=== PATIENT | female | born 1960 | race Caucasian/White ===

== ENCOUNTER 2020-01-07 09:31 | Outpatient (REF) | payer OTHER, SELFPAY | END 2020-01-07 09:32 | disposition home or self-care (01) | LOC: HO.HMGCLDS 09:31 | PROVIDERS: PCP Internal Medicine; Visit Provider Internal Medicine | DX: Z20.828 Contact with and (suspected) exposure to other viral communicable diseases (principal) | CPT/HCPCS: C9803; U0003 ==

== ENCOUNTER → 2020-01-15 13:07 | Outpatient (BNVA) | payer OTHER, SELFPAY | PROVIDERS: Visit Provider Dietitian, Registered | DX: Z76.89 Persons encountering health services in other specified circumstances (principal) ==

== ENCOUNTER 2020-01-28 10:49 | Outpatient (REF) | payer OTHER, SELFPAY ==
[2020-01-28 11:27] LABS: MANUAL DIFF FLAG NO
[2020-01-28 11:49] LABS: Glucose Urine UA NEG (NEG); Leukocyte Esterase Urine TRACE (NEG); Nitrite Urine NEG (NEG); Urine Blood NEG (NEG); Urine Ketones NEG (NEG); Urine Protein NEG (NEG-TRACE)
[2020-01-28 11:49] LABS: Basophils Percent Auto 0.4 % (0-2); Eosinophils Absolute Auto 0.5 X10*3/uL (0.0-0.4); Eosinophils Percent Auto 6.1 % (0-4); Hematocrit 37.7 % (37-47); Hemoglobin 11.1 g/dl (12.0-16.0); Imm Gran Abs Auto 0.02 X10*3/uL (0.00-0.03); Imm Gran Pct Auto 0.3 % (0.0-0.4); Immature Retic Fraction 16.8 % (3.0-15.9); Lymphocytes Absolute Auto 2.3 X10*3/uL (1.2-4.9); Mean Corpuscular HGB Conc 29.4 g/dl (31.0-35.0); Mean Corpuscular Hemoglobin 25.2 pg (27.0-33.0); Mean Corpuscular Volume 85.5 fL (80-98); Mean Platelet Volume 9.9 fL (9.4-12.3); Monocytes Absolute Auto 0.5 X10*3/uL (0.1-1.2); Monocytes Percent Auto 6.1 % (2-11); Neutrophils Absolute Auto 4.4 X10*3/uL (2.0-8.3); Neutrophils Percent Auto 57.1 % (45-73); Platelet Count 307 X10*3/uL (160-400); Red Blood Count 4.41 X10*6/uL (4.20-5.50); Red Cell Distribution Width 15.4 % (11.0-16.0); Retic HGB Equivalent 31.4 pg (30.0-35.0); Reticulocytes Absolute 0.087 X10*6/uL (0.026-0.095); White Blood Count 7.7 X10*3/uL (4.8-10.8)
[2020-01-28 11:53] LABS: Alanine Aminotransferase 10 U/L (0-31); Alkaline Phosphatase 94 U/L (39-117); Anion Gap 11 (12-20); Aspartate Amino Transferase 17 U/L (5-31); Bilirubin Total 0.7 mg/dL (0.0-1.0); Blood Urea Nitrogen 23 mg/dL (9-16); Calcium 9.1 mg/dL (8.4-10.2); Carbon Dioxide 27 mmol/L (22-29); Chloride 105 mmol/L (96-108); Cholesterol 200 mg/dL; Estimated Glomerular Filt Rate > 60; Glucose Random 100 mg/dL (60-115); HDL Cholesterol 57 mg/dL; Iron 55 mcg/dL (30-160); LDL Cholesterol Calculated 122 mg/dl; Percent Iron Saturation 13 % (15-50); Potassium 4.6 mmol/l (3.3-5.1); Sodium 138 mmol/L (135-145); Total Iron Binding Capacity 421 mcg/dL (228-428); Total Protein 6.2 g/dL (6.5-8.0); Triglycerides 108 mg/dL; Unsaturated Iron Binding 366 ug/dL
[2020-01-28 11:56] LABS: Estimated Average Glucose 100 mg/dL; Hemoglobin A1c % 5.1 %
[2020-01-28 11:58] LABS: Appearance Urine CLEAR; Color Urine YELLOW
[2020-01-28 12:00] LABS: Lithium 1.09 mmol/L (0.60-1.20)
[2020-01-28 12:12] LABS: RBC Urine 0 /HPF (0); Squamous Epithelial Cell Urine TRACE /LPF; WBC Urine 0-2 /HPF (0-4)
[2020-01-28 12:18] LABS: Ferritin 6 ng/mL (10-250); Thyroid Stimulating Hormone 3.99 uIU/mL (0.32-4.0)
[2020-01-28 13:58] LABS: Folate 19.4 ng/mL (> or = 4.0); Vitamin B12 455 pg/mL (200-900)
== END 2020-01-28 10:50 | disposition home or self-care (01) ==
LOC: HO.LAB 10:49
PROVIDERS: PCP Internal Medicine; Visit Provider Internal Medicine
DX: E78.00 Pure hypercholesterolemia, unspecified (principal); E03.9 Hypothyroidism, unspecified
CPT/HCPCS: 36415; 80053; 80061; 80178; 81001; 82306; 82607; 82728; 82746; 83036; 83540; 84439; 84443; 85025; 85045

== ENCOUNTER → 2020-02-29 08:33 | Outpatient (BNVA) | payer OTHER, SELFPAY | PROVIDERS: PCP Internal Medicine; Visit Provider Physician Assistant | DX: Z76.89 Persons encountering health services in other specified circumstances (principal) ==

== ENCOUNTER 2020-03-12 11:24 | Outpatient (REF) | payer OTHER, SELFPAY ==
[2020-03-12 12:26] LABS: Lithium 1.21 mmol/L (0.60-1.20)
[2020-03-12 12:47] LABS: Magnesium 2.1 mg/dL (1.6-2.6)
[2020-03-12 13:07] LABS: Vitamin D 25-OH Total 24.4 ng/mL (>30)
[2020-03-12 13:16] LABS: T4 Thyroxine 5.9 ug/dL (4.5-12.0); Thyroid Stimulating Hormone 5.59 uIU/mL (0.32-4.0)
[2020-03-13 09:07] LABS: Triiodothyronine T3 Free 2.6 pg/mL (2.3-4.2)
== END 2020-03-12 11:25 | disposition home or self-care (01) ==
LOC: HO.LAB 11:24
PROVIDERS: PCP Internal Medicine; Visit Provider Psychiatry & Neurology Psychiatry
DX: F31.9 Bipolar disorder, unspecified (principal); G89.29 Other chronic pain; E03.9 Hypothyroidism, unspecified; E55.9 Vitamin D deficiency, unspecified; E78.00 Pure hypercholesterolemia, unspecified
CPT/HCPCS: 36415; 80178; 82306; 83735; 84436; 84443; 84481

== ENCOUNTER → 2020-04-17 10:30 | Outpatient (BNVA) | payer OTHER, SELFPAY | PROVIDERS: PCP Internal Medicine; Visit Provider Physician Assistant ==

== ENCOUNTER 2020-04-29 14:42 | Emergency (ER) | payer OTHER, SELFPAY ==
--- NOTE | ~2020-04-29 | XR_ITS ---
EXAMINATION: XR FOOT, LEFT CLINICAL INFORMATION: Left foot pain status post fall. COMPARISON: None TECHNIQUE: AP, lateral, and oblique views of the left foot. FINDINGS: There is no acute fracture or dislocation. The joint space is unremarkable. The tarsal bones are normally aligned. Small plantar and retrocalcaneal spurs are noted. The soft tissues are unremarkable. XR/XR foot LT 2V IMPRESSION: 1. No acute osseous abnormality. 2. Small degenerative plantar and retrocalcaneal spurs.
--- NOTE | ~2020-04-29 | XR_ITS ---
EXAMINATION: XR RIBS, LEFT CLINICAL INFORMATION: Fall, trauma, pain COMPARISON: Chest radiographs 10/19/2019, 11/23/2018, left shoulder 04/29/2020 TECHNIQUE: Frontal view chest and 3 views left ribs are obtained for a total of 4 views. FINDINGS: There is no visible rib fracture or rib destructive process. The lungs are clear and there is no pneumothorax, pleural reaction, or effusion. Some fine subpleural linear scarring periphery left midlung zone is stable from prior study. The costophrenic sulci are clear. The heart is normal in size. Mamillation right diaphragm stable. The hilar and mediastinal contours are unremarkable. XR/XR ribs LT min 3V w CXR1V IMPRESSION: Unremarkable examination.
--- NOTE | ~2020-04-29 | XR_ITS ---
EXAMINATION: XR SHOULDER, LEFT CLINICAL INFORMATION: Fall, trauma, pain COMPARISON: None TECHNIQUE: Left shoulder is imaged in 3 views. FINDINGS: There is no acute or healing fracture, dislocation, destructive process. The acromioclavicular alignment is normal. Left lung apex shows no pneumothorax or pleural reaction. No rotator cuff calcifications. XR/XR shoulder LT min 2V IMPRESSION: No fracture or dislocation.
--- NOTE | ~2020-04-29 | XR_ITS ---
EXAMINATION: XR PELVIS CLINICAL INFORMATION: Pelvic pain status post fall. COMPARISON: Left hip radiographs dated 05/24/2016, pelvic CT scan dated 11/17/2019. TECHNIQUE: AP view of the pelvis. FINDINGS: There is no acute fracture or dislocation. Minimal right hip hip degenerative joint changes are seen in the superior aspect of the joint space. Mild spurring off of the superolateral aspect of the right acetabulum is again noted. The bony pelvis is intact. Severe degenerative disc disease is again noted at L4-5. The soft tissues are unremarkable. XR/XR pelvis 1-2V IMPRESSION: 1. Minimal right hip osteoarthritis with mild degenerative spurring similar to the previous CT scan. No acute abnormality. 2. L4-L5 severe degenerative disc disease.
[2020-04-29 14:43] VITALS: BP 109/78; PULSE 81; RESP 16; TEMP 36.6; O2SAT 100; BMI 46.5
--- NOTE | 2020-04-29 15:59 | ED.FALL ---
HPI - Fall General Chief Complaint: Fall Stated Complaint: FALL Time Seen by Provider: 04/29/20 15:59 History of Present Illness HPI Narrative: Patient complains of left shoulder left thigh left hip left knee and left foot pain after a fall where she tripped and fell on her left side on the hardwood floor, she did not hit her head she denies any neck pain no headache no loss of consciousness no dizziness no confusion no fainting no chest pain Related Data Home Medications Medication Instructions Recorded Confirmed calcium citrate 315 mg-vitamin D3 1 tab PO BID 01/24/20 04/17/20 5 mcg (200 unit) tablet cyanocobalamin (vitamin B-12) 1,000 mcg IM Q4W ml 01/24/20 04/17/20 1,000 mcg/mL injection solution linaclotide 145 mcg capsule 145 mcg PO DAILY 01/24/20 04/17/20 lithium carbonate 300 mg capsule 900 mg PO BEDTIME cap 01/24/20 04/17/20 lurasidone 20 mg tablet 20 mg PO DAILY 01/24/20 04/17/20 multivitamin 1 cap PO DAILY 01/24/20 04/17/20 diazepam 2 mg tablet 2 mg PO TID 04/17/20 04/17/20 lorazepam 1 mg tablet 1 mg PO BEDTIME PRN 04/17/20 04/17/20 naproxen 500 mg tablet 500 mg PO BID 04/17/20 04/17/20 ondansetron 4 mg disintegrating 4 mg PO BID PRN 04/17/20 04/17/20 tablet trazodone 100 mg tablet mg PO 04/17/20 04/17/20 Previous Rx's Medication Instructions Recorded levothyroxine 125 mcg capsule 125 mcg PO DAILY #30 cap 03/21/20 ascorbic acid (vitamin C) 500 mg 500 mg PO DAILY #30 tab 04/18/20 tablet ferrous sulfate 325 mg (65 mg 325 mg PO DAILY #30 tab 04/18/20 iron) tablet Allergies Allergy/AdvReac Type Severity Reaction Status Date / Time amoxicillin [Amoxicillin] Allergy Severe HIVES, Verified 04/17/20 10:51 swelling Review of Systems Review of Systems: Positive for left shoulder left hip left thigh left foot pain after a fall No dizziness no weakness no confusion no fainting, no feeling faint no syncope no headache no vision change no neck pain no numbness weakness or tingling, no chest pain no shortness of breath no abdominal pain no nausea or vomiting [facility] Past Medical History Source: nursing notes reviewed Medical History (Updated 04/29/20 @ 16:11 by EFREN Askew) Anxiety and depression GERD (gastroesophageal reflux disease) Hx of small bowel obstruction Hypercholesterolemia Iron deficiency anemia Lumbar disc herniation Obesity Osteoarthritis Right rotator cuff tear Surgical History (Updated 04/17/20 @ 11:41 by Cassie Johnson PA-C) History of Theo-en-Y gastric bypass Hx laparoscopic cholecystectomy Hx of section Hx of laminectomy Hx of laparoscopic gastric banding Hx of tonsillectomy S/P panniculectomy Family History Family History (Updated 12/20/19 @ 14:[address] [facility]) Father HTN (hypertension) DM (diabetes mellitus) Bladder cancer Prostate cancer Hyperlipidemia Mother No problems noted. Brother No problems noted. Sister No problems noted. Son No problems noted. Daughter No problems noted. Social History Social History (Updated 12/20/19 @ 14:[address] [facility]) Alcohol intake: current Smoking Status: Never smoker Advance Directives: No Advance Directives Information Provided: No Physical Exam Vital Signs: Vital Signs: Last Vital Signs Temp 97.8 F 04/29/20 14:43 Pulse 81 04/29/20 14:43 Resp 16 04/29/20 14:43 BP 109/78 04/29/20 14:43 Pulse Ox 100 04/29/20 14:43 Body Mass Index 46.5 General appearance no acute distress, cooperative, Head is normocephalic atraumatic The neck is supple and nontender The chest is clear to auscultation bilaterally with full symmetric equal breath sounds, there is mild tenderness over the left mid rib area, there is no pain with deep breath The abdomen is soft and nontender Extremities there is some tenderness over the left hip the left thigh and the left foot but there is full range of motion in all joints and patient is able to ambulate with a mild limp, there is no swelling or deformity in the left knee or the left ankle The left shoulder has mild lateral and anterior tenderness, range of motion is restricted on extension, abduction and external rotation Neuro no focal deficit Course Course Course Narrative: X-rays done from triage of left foot, pelvis, ribs and left shoulder are all negative Patient remains stable throughout ER visit and ambulated comfortably from the ER on discharge Discharge Plan Discharge Clinical Impression: Sprain of left shoulder Qualifiers: Encounter type: initial encounter Shoulder sprain type: unspecified sprain Qualified Code(s): S43.402A - Unspecified sprain of left shoulder joint, initial encounter Patient Disposition: Home, Self-Care Additional Instructions: Physical exam did not show any sign of broken bone or any dangerous injury X-rays of foot pelvis ribs and left shoulder showed some arthritis but did not show any bony injury, no broken bone no sign of any dangerous injury Follow with orthopedist as needed for your shoulder Return any time any worse condition or any concerns Tylenol as needed for any aches and pains Prescriptions: No Action levothyroxine 125 mcg capsule 125 mcg PO DAILY Qty: 30 RF: 3 ferrous sulfate 325 mg (65 mg iron) tablet 325 mg PO DAILY Qty: 30 RF: 5 ascorbic acid (vitamin C) [Vitamin C] 500 mg tablet 500 mg PO DAILY Qty: 30 RF: 11 multivitamin Capsule 1 cap PO DAILY RF: 0 calcium citrate-vitamin D3 315 mg-5 mcg (200 unit) tablet 1 tab PO BID RF: 0 lithium carbonate 300 mg capsule 900 mg PO BEDTIME RF: 0 cyanocobalamin (vitamin B-12) 1,000 mcg/mL solution 1,000 mcg IM Q4W RF: 0 Linzess 145 mcg capsule 145 mcg PO DAILY RF: 0 Latuda 20 mg tablet 20 mg PO DAILY RF: 0 lorazepam 1 mg tablet 1 mg PO BEDTIME PRNRF: 0 diazepam 2 mg tablet 2 mg PO TID RF: 0 naproxen 500 mg tablet 500 mg PO BID RF: 0 trazodone 100 mg tablet PO RF: 0 ondansetron 4 mg tablet,disintegrating 4 mg PO BID PRN (Reason: nausea) RF: 0 Discharge Date/Time: 04/29/20 16:14
--- NOTE | 2020-04-29 16:13 | PC.NURSE ---
2ND CALL TO [facility] AT 1610, NOT IN WR
== END 2020-04-29 16:14 | disposition home or self-care (01) ==
PROVIDERS: Emergency Provider Emergency Medicine Emergency Medical Services; PCP Internal Medicine
DX: S43.402A Unspecified sprain of left shoulder joint, initial encounter (principal); M25.512 Pain in left shoulder; M79.672 Pain in left foot; R07.81 Pleurodynia; R10.2 Pelvic and perineal pain; W01.0XXA Fall on same level from slipping, tripping and stumbling without subsequent striking against object, initial encounter; Y93.01 Activity, walking, marching and hiking; Y92.9 Unspecified place or not applicable; Y99.9 Unspecified external cause status; Z79.899 Other long term (current) drug therapy
CPT/HCPCS: 71101; 72170; 73030; 73620; 99283

== ENCOUNTER → 2020-05-01 07:58 | Outpatient (BNVA) | payer OTHER, SELFPAY | PROVIDERS: PCP Internal Medicine; Visit Provider Dietitian, Registered ==

== ENCOUNTER 2020-05-01 12:39 | Emergency (ER) | payer OTHER, SELFPAY ==
[2020-05-01] VITALS (7 sets, daily range): BP systolic 108–141; BP diastolic 62–76; PULSE 71–82; RESP 16–28; TEMP 36.5–37.1; O2SAT 97–99; BMI 36.0
--- NOTE | 2020-05-01 | ECG_ITS ---
Test Reason : DIZZINESS Blood Pressure : / mmHG Vent. Rate : 066 BPM Atrial Rate : 066 BPM P-R Int : 152 ms QRS Dur : 086 ms QT Int : 444 ms P-R-T Axes : 043 034 036 degrees QTc Int : 465 ms Normal sinus rhythm Normal ECG When compared with ECG of 19-OCT-2019 11:35, Vent. rate has decreased BY 32 BPM Referred By: Generic ED Physician Electronically Signed By:SIMONE UMANA MD
--- NOTE | ~2020-05-01 | CT_ITS ---
EXAM: CT HEAD WITHOUT CONTRAST CT CERVICAL SPINE INDICATION: Reason for Exam Fall, hit head TECHNIQUE: A noncontrast CT scan was performed from the skull base to the vertex. A noncontrast CT scan of the cervical spine was performed from the base of the skull through T1. Coronal and sagittal reformats were obtained at the acquisition workstation. Dose length product is 797 mGy-cm. COMPARISON: 11/23/[address] FINDINGS: Head: No evidence of acute intracranial hemorrhage or extra-axial fluid collection. No acute territorial infarction. No evidence of mass lesion, mass effect or midline shift. Stable cystic focus left inferior insula. Ventricles are symmetric in configuration and normal in size. The basal cisterns are patent. The calvarium is intact. Limited views of the paranasal sinuses are unremarkable. Mastoid air cells are well aerated and middle ear cavities are clear. Orbits are unremarkable. Cervical Spine: Cervical vertebral bodies are normal in height and alignment. Straightening of cervical lordosis. Degenerative changes at C5-C6 and C6-C7 with disc space narrowing, osteophytes and uncovertebral spurring. Facet joints are anatomically aligned bilaterally with minimal arthrosis. Spinous processes are intact and well aligned. The atlantodens articulation demonstrates degenerative change but is otherwise unremarkable. No prevertebral soft tissue swelling. The craniocervical junction is unremarkable. The paravertebral muscles and fat planes are preserved. Limited views of the thyroid are unremarkable. Lung apices are clear. No bulky cervical adenopathy. CT/CT cervical spine wo con IMPRESSION: 1. No evidence of acute intracranial abnormality. 2. Degenerative changes of the cervical spine without acute fracture subluxation.
--- NOTE | ~2020-05-01 | CT_ITS ---
EXAM: CT HEAD WITHOUT CONTRAST CT CERVICAL SPINE INDICATION: Reason for Exam Fall, hit head TECHNIQUE: A noncontrast CT scan was performed from the skull base to the vertex. A noncontrast CT scan of the cervical spine was performed from the base of the skull through T1. Coronal and sagittal reformats were obtained at the acquisition workstation. Dose length product is 797 mGy-cm. COMPARISON: 11/23/[address] FINDINGS: Head: No evidence of acute intracranial hemorrhage or extra-axial fluid collection. No acute territorial infarction. No evidence of mass lesion, mass effect or midline shift. Stable cystic focus left inferior insula. Ventricles are symmetric in configuration and normal in size. The basal cisterns are patent. The calvarium is intact. Limited views of the paranasal sinuses are unremarkable. Mastoid air cells are well aerated and middle ear cavities are clear. Orbits are unremarkable. Cervical Spine: Cervical vertebral bodies are normal in height and alignment. Straightening of cervical lordosis. Degenerative changes at C5-C6 and C6-C7 with disc space narrowing, osteophytes and uncovertebral spurring. Facet joints are anatomically aligned bilaterally with minimal arthrosis. Spinous processes are intact and well aligned. The atlantodens articulation demonstrates degenerative change but is otherwise unremarkable. No prevertebral soft tissue swelling. The craniocervical junction is unremarkable. The paravertebral muscles and fat planes are preserved. Limited views of the thyroid are unremarkable. Lung apices are clear. No bulky cervical adenopathy. CT/CT head/brain wo con IMPRESSION: 1. No evidence of acute intracranial abnormality. 2. Degenerative changes of the cervical spine without acute fracture subluxation.
--- NOTE | ~2020-05-01 | CT_ITS ---
EXAMINATION: CT LUMBAR SPINE WITHOUT CONTRAST CLINICAL INFORMATION: Fall. Pain over L3. COMPARISON: Lumbar spine MRI 07/01/2014. TECHNIQUE: Helical non-contrast CT images were obtained through the lumbar spine without contrast. Multiplanar reformats were rendered and reviewed. This CT examination was performed using dose optimization techniques as appropriate, variously including the following: *Automated exposure control *Adjustment of mA and/or kV according to patient size (this includes techniques or standardized protocols for targeted exams where dose is matched to indication/reason for exam; i.e. extremities or head) *Use of iterative reconstruction technique DLP: 682 mGy-cm FINDINGS: The lumbar vertebral bodies maintain normal heights. There is mild dextroscoliotic curvature. Severe degenerative endplate changes are seen at L2-L3 with subchondral cystic changes and vacuum disc. Severe disc height loss is seen at L4-L5. Mild to moderate disc height loss at L3-L4. No acute fracture is seen. Cholecystectomy clips are present in the gallbladder fossa. The extraspinal soft tissues otherwise appear normal. SPINAL LEVELS: L1-L2: Disc bulging asymmetric to the right. No spinal canal or neural foraminal stenosis. L2-L3: Diffuse disc bulging with ligamentum flavum infolding mild facet arthropathy resulting in mild narrowing of the neural foramina. Mild spinal canal stenosis. L3-L4: Disc bulging with ligamentum flavum infolding and mild facet arthropathy resulting in mild to moderate bilateral neural foraminal stenosis and mild spinal canal stenosis. L4-L5: Disc bulging with moderate facet arthropathy. Moderate bilateral neural foraminal stenosis. No spinal canal stenosis. L5-S1: Mild disc bulging and severe facet arthropathy. Mild bilateral neural foraminal stenosis. No significant spinal canal stenosis. CT/CT lumbar spine wo con IMPRESSION: No acute fracture or traumatic malalignment. Multilevel degenerative changes most advanced at L2-L3. No high-grade osseous encroachment on the spinal canal. Varying degrees of neural foraminal stenosis are detailed above.
[2020-05-01 12:53] LABS: Glucose, Whole Blood 105 mg/dL (60-115)
[2020-05-01 14:25] LABS: MANUAL DIFF FLAG NO
[2020-05-01 14:28] LABS: Basophils Percent Auto 0.3 % (0-2); Eosinophils Absolute Auto 0.4 X10*3/uL (0.0-0.4); Eosinophils Percent Auto 4.8 % (0-4); Hematocrit 38.1 % (37-47); Hemoglobin 11.7 g/dl (12.0-16.0); Imm Gran Abs Auto 0.02 X10*3/uL (0.00-0.03); Imm Gran Pct Auto 0.2 % (0.0-0.4); Lymphocytes Absolute Auto 2.4 X10*3/uL (1.2-4.9); Lymphocytes Percent Auto 26.9 % (20-40); Mean Corpuscular HGB Conc 30.7 g/dl (31.0-35.0); Mean Corpuscular Volume 87.8 fL (80-98); Mean Platelet Volume 9.4 fL (9.4-12.3); Monocytes Absolute Auto 0.5 X10*3/uL (0.1-1.2); Neutrophils Absolute Auto 5.6 X10*3/uL (2.0-8.3); Neutrophils Percent Auto 61.8 % (45-73); Platelet Count 296 X10*3/uL (160-400); Red Blood Count 4.34 X10*6/uL (4.20-5.50); Red Cell Distribution Width 18.3 % (11.0-16.0); White Blood Count 9.1 X10*3/uL (4.8-10.8)
[2020-05-01 14:58] LABS: Alanine Aminotransferase 44 U/L (0-31); Albumin Level 3.9 g/dL (3.5-5.0); Alkaline Phosphatase 91 U/L (39-117); Anion Gap 11 (12-20); Aspartate Amino Transferase 81 U/L (5-31); Bilirubin Total 0.5 mg/dL (0.0-1.0); Blood Urea Nitrogen 20 mg/dL (9-16); Calcium 8.9 mg/dL (8.4-10.2); Carbon Dioxide 24 mmol/L (22-29); Chloride 106 mmol/L (96-108); Creatinine Clr Calc Pharmacy 95.5; Estimated Glomerular Filt Rate > 60; Glucose Random 96 mg/dL (60-115); Potassium 4.5 mmol/L (3.3-5.1); Sodium 136 mmol/L (135-145); Total Protein 6.4 g/dL (6.5-8.0)
[2020-05-01 15:02] LABS: Troponin-I High Sensitivity < 3.5 ng/L (<3.5-17.0)
--- NOTE | 2020-05-01 15:41 | ED_ITS ---
HPI - General Adult General Chief complaint: Dizziness Stated complaint: MULTI FALLS W/DIZZINESS Time Seen by Provider: 05/01/20 15:15 Source: patient, EMS and RN notes reviewed Mode of arrival: EMS Limitations: no limitations History of Present Illness HPI narrative: 59-year-old female here today after sustaining a fall. Patient was brought by EMS. Seen here a couple days ago after a fall in the kitchen, mechanical fall. Patient denies any dizziness. Yesterday patient was out running errands and when she got back home while walking back to her house she fell. Patient does not remember if she had any dizziness prior to fall. Denies any CP, palpitations. Patient reports falling onto a gravel hitting her head and her lower back. He did not seek medical attention then, however today she continues to have lower back pain with neck pain. Patient denies any fevers or chills. Related Data Home Medications Medication Instructions Recorded Confirmed calcium citrate 315 mg-vitamin D3 1 tab PO BID 01/24/20 04/17/20 5 mcg (200 unit) tablet cyanocobalamin (vitamin B-12) 1,000 mcg IM Q4W ml 01/24/20 04/17/20 1,000 mcg/mL injection solution linaclotide 145 mcg capsule 145 mcg PO DAILY 01/24/20 04/17/20 lithium carbonate 300 mg capsule 900 mg PO BEDTIME cap 01/24/20 04/17/20 lurasidone 20 mg tablet 20 mg PO DAILY 01/24/20 04/17/20 multivitamin 1 cap PO DAILY 01/24/20 04/17/20 diazepam 2 mg tablet 2 mg PO TID 04/17/20 04/17/20 lorazepam 1 mg tablet 1 mg PO BEDTIME PRN 04/17/20 04/17/20 naproxen 500 mg tablet 500 mg PO BID 04/17/20 04/17/20 ondansetron 4 mg disintegrating 4 mg PO BID PRN 04/17/20 04/17/20 tablet trazodone 100 mg tablet mg PO 04/17/20 04/17/20 Previous Rx's Medication Instructions Recorded levothyroxine 125 mcg capsule 125 mcg PO DAILY #30 cap 03/21/20 ascorbic acid (vitamin C) 500 mg 500 mg PO DAILY #30 tab 04/18/20 tablet ferrous sulfate 325 mg (65 mg 325 mg PO DAILY #30 tab 04/18/20 iron) tablet cephalexin 500 mg PO BID 7 Days #14 cap 05/01/20 Allergies Allergy/AdvReac Type Severity Reaction Status Date / Time amoxicillin [Amoxicillin] Allergy Severe HIVES, Verified 04/17/20 10:51 swelling Review of Systems Review of Systems: Yes all other systems are reviewed and are negative COUNTS INCLUDE 234 BEDS AT THE [facility] Past Medical History Medical History (Updated 05/01/20 @ 17:26 by Sintia Boucher [facility]-) Anxiety and depression GERD (gastroesophageal reflux disease) Hx of small bowel obstruction Hypercholesterolemia Iron deficiency anemia Lumbar disc herniation Obesity Osteoarthritis Right rotator cuff tear Surgical History History of Theo-en-Y gastric bypass Hx laparoscopic cholecystectomy Hx of section Hx of laminectomy Hx of laparoscopic gastric banding Hx of tonsillectomy S/P panniculectomy Family History Family History (Updated 12/20/19 @ 14:08 by Jessee Cabrera [facility]) Father HTN (hypertension) DM (diabetes mellitus) Bladder cancer Prostate cancer Hyperlipidemia Mother No problems noted. Brother No problems noted. Sister No problems noted. Son No problems noted. Daughter No problems noted. Social History Social History (Updated 12/20/19 @ 14:08 by Jessee Cabrera [facility]) Alcohol intake: never Smoking Status: Never smoker Use of substances other than those prescribed or required for medical reasons: No Advance Directives: No Advance Directives Information Provided: No Physical Exam Vital Signs: Vital Signs: Last Vital Signs Temp 98.7 F 05/01/20 17:12 Pulse 79 05/01/20 17:12 Resp 16 05/01/20 17:27 BP 141/66 H 05/01/20 17:12 Pulse Ox 97 05/01/20 17:12 Body Mass Index 36.0 Const: General: cooperative, healthy appearing and comfortable Nutritional Appearance: average body habitus Orientation/consciousness: patient oriented x3 Limitations: no limitations HENMT: Head: Yes normal to inspection Ears: hearing grossly normal bilaterally and TM's normal bilaterally General nose exam: Normal external nose present Face and sinus: Yes normal facial exam Mouth: Normal oral and palatal mucosa present Throat: Yes posterior oropharynx normal Eyes: General: appearance normal, both eyes and all related structures Eyelids: Yes eyelids normal Conjunctivae: conjunctivae normal Sclerae: sclerae normal Pupils: Equal, round and reactive pupils present Neck: Neck: Yes normal visual inspection, Yes full ROM, Yes no lymphadenopathy, Yes trachea midline and Yes supple Thyroid: Thyroid normal Lymphatic: no lymphadenopathy noted Chest: Chest palpation & inspection: normal inspection of the chest Resp: Effort & Inspection: normal respiratory effort and able to speak in complete sentences Auscultation: clear to auscultation bilaterally Cardio: Jugular venous distension: no JVD Rate: regular rate Rhythm: regular rhythm Heart sounds: S1 normal heart sound present, S2 normal heart sound present, no gallops, no murmurs and no rubs Peripheral pulses: Peripheral pulses 2+ throughout GI: Inspection: Yes normal to inspection and No distended Palpation (GI): No hepatosplenomegaly present and No Rebound tenderness present Percussion: Yes normal to percussion Auscultation: normal bowel sounds Back/Spine/Pelvis: Cervical Spine: cervical ROM normal and No cervical muscular tenderness Thoracic/Lumbar Spine: thoracic and lumbar spine normal to inspection Skin: General skin exam: no rashes or lesions noted, elasticity normal and turgor normal Neuro: General: patient oriented x3 Cranial nerves: Yes Equal, round and reactive pupils present Extrem: General: Yes normal to inspection, Yes full ROM and Yes capillary refill normal Psych: Appearance: grossly normal Mental Status: mental status grossly normal Speech and movement: Normal speech and movement present Affect: normal affect Attitude: cooperative Thought process: Normal thought process present Insight: Good insight present (Psych) Course Course Course Narrative: 59-year-old female here today after sustaining a fall yesterday. Patient was walking back to her house after doing errands and she fell hitting her head and her lower back. Patient does not remember if she had any dizziness, palpitations or shortness of breath at the time of fall or before. Fall was witnessed by her mother. Patient denies any other symptoms, denies any fever or chills. Negative neuro exam. Patient denies dizziness at this time. Denies vertigo. Patient is awaiting to go to CT scan. Medicated with Zofran for nausea from morphine. Urine positive for leukocytes. First dose of Keflex given in the ED.. Plan is to send patient home with a script for that. Reevaluation(s) Reevaluation #1: Patient was medicated for pain with morphine. Reports that her back pain is better now. Denies any dizziness, orthostatic VS normal. Medical Decision Making Lab Data Result diagrams: 05/01/20 14:21 05/01/20 14:20 Labs: Lab Results 05/01/20 05/01/20 05/01/20 Range/Units 12:50 14:20 14:20 WBC (4.8-10.8) X10*3/uL RBC (4.20-5.50) X10*6/uL Hgb (12.0-16.0) g/dl Hct (37-47) % MCV (80-98) fL MCH (27.0-33.0) pg MCHC (31.0-35.0) g/dl RDW (11.0-16.0) % Plt Count (160-400) X10*3/uL MPV (9.4-12.3) fL Immature Gran % (Auto) (0.0-0.4) % Neut % (Auto) (45-73) % Lymph % (Auto) (20-40) % [place] % (Auto) (2-11) % Eos % (Auto) (0-4) % Baso % (Auto) (0-2) % Lymph # (Auto) (1.2-4.9) X10*3/uL [place] # (Auto) (0.1-1.2) X10*3/uL Eos # (Auto) (0.0-0.4) X10*3/uL Baso # (Auto) (0.0-0.2) X10*3/uL Abs Immat Gran (auto) (0.00-0.03) X10*3/uL Absolute Neuts (auto) (2.0-8.3) X10*3/uL Absolute Nucleated RBC (0.0-0.012) X10*3/uL Nucleated RBC % (auto) (0.0-0.2) /100WBC Hold Blue Top SEE NOTE Sodium 136 (135-145) mmol/L Potassium 4.5 (3.3-5.1) mmol/L Chloride 106 (96-108) mmol/L Carbon Dioxide 24 (22-29) mmol/L Anion Gap 11 L (12-20) BUN 20 H (9-16) mg/dL Creatinine 0.83 (0.5-1.4) mg/dL Estim Creat Clear Calc 95.5 Estimated GFR > 60 POC Glucose 105 (60-115) mg/dL Random Glucose 96 (60-115) mg/dL Calcium 8.9 (8.4-10.2) mg/dL Total Bilirubin 0.5 (0.0-1.0) mg/dL AST 81 H (5-31) U/L ALT 44 H (0-31) U/L Alkaline Phosphatase 91 (39-117) U/L Troponin I High Sens (<3.5-17.0) ng/L Total Protein 6.4 L (6.5-8.0) g/dL Albumin 3.9 (3.5-5.0) g/dL Urine Color Urine Appearance Urine pH (5.0-8.0) Ur Specific [place] (1.005-1.025) Urine Protein (NEG-TRACE) MG/DL Urine Glucose (UA) (NEG) MG/DL Urine Ketones (NEG) MG/DL Urine Blood (NEG) Urine Nitrite (NEG) Ur Leukocyte Esterase (NEG) Urine RBC (0) /HPF Urine WBC (0-4) /HPF Ur Squamous Epith Cells /LPF Ur Renal Epithelial Cell /LPF Urine Bacteria /LPF 05/01/20 05/01/20 05/01/20 Range/Units 14:20 14:21 15:53 WBC 9.1 (4.8-10.8) X10*3/uL RBC 4.34 (4.20-5.50) X10*6/uL Hgb 11.7 L (12.0-16.0) g/dl Hct 38.1 (37-47) % MCV 87.8 (80-98) fL MCH 27.0 (27.0-33.0) pg MCHC 30.7 L (31.0-35.0) g/dl RDW 18.3 H (11.0-16.0) % Plt Count 296 (160-400) X10*3/uL MPV 9.4 (9.4-12.3) fL Immature Gran % (Auto) 0.2 (0.0-0.4) % Neut % (Auto) 61.8 (45-73) % Lymph % (Auto) 26.9 (20-40) % [place] % (Auto) 6.0 (2-11) % Eos % (Auto) 4.8 H (0-4) % Baso % (Auto) 0.3 (0-2) % Lymph # (Auto) 2.4 (1.2-4.9) X10*3/uL [place] # (Auto) 0.5 (0.1-1.2) X10*3/uL Eos # (Auto) 0.4 (0.0-0.4) X10*3/uL Baso # (Auto) 0.0 (0.0-0.2) X10*3/uL Abs Immat Gran (auto) 0.02 (0.00-0.03) X10*3/uL Absolute Neuts (auto) 5.6 (2.0-8.3) X10*3/uL Absolute Nucleated RBC 0.000 (0.0-0.012) X10*3/uL Nucleated RBC % (auto) 0.0 (0.0-0.2) /100WBC Hold Blue Top Sodium (135-145) mmol/L Potassium (3.3-5.1) mmol/L Chloride (96-108) mmol/L Carbon Dioxide (22-29) mmol/L Anion Gap (12-20) BUN (9-16) mg/dL Creatinine (0.5-1.4) mg/dL Estim Creat Clear Calc Estimated GFR POC Glucose (60-115) mg/dL Random Glucose (60-115) mg/dL Calcium (8.4-10.2) mg/dL Total Bilirubin (0.0-1.0) mg/dL AST (5-31) U/L ALT (0-31) U/L Alkaline Phosphatase (39-117) U/L Troponin I High Sens < 3.5 (<3.5-17.0) ng/L Total Protein (6.5-8.0) g/dL Albumin (3.5-5.0) g/dL Urine Color STRAW Urine Appearance CLEAR Urine pH 7.0 (5.0-8.0) Ur Specific [place] <= 1.005 (1.005-1.025) Urine Protein NEG (NEG-TRACE) MG/DL Urine Glucose (UA) NEG (NEG) MG/DL Urine Ketones NEG (NEG) MG/DL Urine Blood NEG (NEG) Urine Nitrite NEG (NEG) Ur Leukocyte Esterase 1+ H (NEG) Urine RBC 0 (0) /HPF Urine WBC 1-4 (0-4) /HPF Ur Squamous Epith Cells NONE /LPF Ur Renal Epithelial Cell 1+ /LPF Urine Bacteria NONE /LPF Discharge Plan Discharge Clinical Impression: Fall Qualifiers: Encounter type: initial encounter Qualified Code(s): W19.XXXA - Unspecified fall, initial encounter UTI (urinary tract infection) Qualifiers: Urinary tract infection type: site unspecified Hematuria presence: without hematuria Qualified Code(s): N39.0 - Urinary tract infection, site not specified Patient Disposition: Home, Self-Care Instructions: Urinary Tract Infection in Women (ED), Fall Prevention (ED) Additional Instructions: You are seeing in the ER today after falling. Prescriptions: New cephalexin 500 mg capsule 500 mg PO BID 7 Days Qty: 14 RF: 0 No Action levothyroxine 125 mcg capsule 125 mcg PO DAILY Qty: 30 RF: 3 ferrous sulfate 325 mg (65 mg iron) tablet 325 mg PO DAILY Qty: 30 RF: 5 ascorbic acid (vitamin C) [Vitamin C] 500 mg tablet 500 mg PO DAILY Qty: 30 RF: 11 multivitamin Capsule 1 cap PO DAILY RF: 0 calcium citrate-vitamin D3 315 mg-5 mcg (200 unit) tablet 1 tab PO BID RF: 0 lithium carbonate 300 mg capsule 900 mg PO BEDTIME RF: 0 cyanocobalamin (vitamin B-12) 1,000 mcg/mL solution 1,000 mcg IM Q4W RF: 0 Linzess 145 mcg capsule 145 mcg PO DAILY RF: 0 Latuda 20 mg tablet 20 mg PO DAILY RF: 0 lorazepam 1 mg tablet 1 mg PO BEDTIME PRNRF: 0 diazepam 2 mg tablet 2 mg PO TID RF: 0 naproxen 500 mg tablet 500 mg PO BID RF: 0 trazodone 100 mg tablet PO RF: 0 ondansetron 4 mg tablet,disintegrating 4 mg PO BID PRN (Reason: nausea) RF: 0 Referrals: Po,Driss Muñiz MD [Primary Care Provider] - 3 days
[2020-05-01] MEDS: Morphine Sulfate 4 MG/ML CARTRIDGE IVPUSH ×2 (15:48→17:27)
[2020-05-01] MEDS: ondansetron HCL 4 MG/2 ML VIAL IVPUSH (16:08)
[2020-05-01 16:20] LABS: Glucose Urine UA NEG (NEG); Leukocyte Esterase Urine 1+ (NEG); Nitrite Urine NEG (NEG); Specific Gravity - Urine <= 1.005 (1.005-1.025); UACC Culture Trigger YES; Urine Blood NEG (NEG); Urine Ketones NEG (NEG); Urine Protein NEG (NEG-TRACE)
[2020-05-01 16:25] LABS: Appearance Urine CLEAR; Color Urine STRAW
[2020-05-01 16:56] LABS: RBC Urine 0 /HPF (0); Renal Epithelial Cells Urine 1+ /LPF; UACC CULT YES
[2020-05-01] MEDS: LORazepam 2 MG/ML VIAL 0.5 MG IVPUSH (17:10)
[2020-05-01] MEDS: cephALEXin 500 MG CAPSULE PO (17:51)
== END 2020-05-01 19:07 | disposition home or self-care (01) ==
PROVIDERS: Emergency Provider Emergency Medicine; PCP Internal Medicine
DX: N39.0 Urinary tract infection, site not specified (principal); R42 Dizziness and giddiness; Z91.81 History of falling; M54.5 Low back pain
CPT/HCPCS: 36415; 70450; 72125; 72131; 80053; 81001; 82947; 84484; 85025; 87086; 93005; 96374; 96375; 96376; 99284; J2060; J2270; J2405

== ENCOUNTER → 2020-05-29 09:47 | Outpatient (BNVA) | payer OTHER, SELFPAY | PROVIDERS: PCP Internal Medicine; Visit Provider Surgery ==

== ENCOUNTER → 2020-07-07 09:56 | Outpatient (BNVA) | payer OTHER, SELFPAY | PROVIDERS: PCP Internal Medicine; Referring Provider Internal Medicine; Visit Provider Surgery ==

== ENCOUNTER 2020-10-04 10:34 | Emergency (ER) | payer OTHER, SELFPAY ==
[2020-10-04 11:18] VITALS: BP 151/76; PULSE 73; RESP 18; TEMP 36.6; O2SAT 100; BMI 32.8
--- NOTE | 2020-10-04 11:47 | ED_ITS ---
HPI - General Adult General Chief complaint: General Medical Stated complaint: allergic reaction Time Seen by Provider: 10/04/20 11:19 Source: patient Mode of arrival: ambulatory Limitations: no limitations History of Present Illness HPI narrative: 60-year-old female with a past medical history of chronic back pain, remote history of laminectomy, who is followed by spine surgery at [facility] in who had an MRI of her lumbar spine 2 days ago presents for worsening bilateral low back pain, paresthesias and pain in her anterior thighs, swollen ankles, and new bladder incontinence. Patient states that her legs feel swollen and tight, and she was at the beach yesterday but could not walk due to pain in her legs. Reports her bilateral calves feel swollen and tight. Last night she was sleeping and woke up to urinary incontinence. No fevers, no trauma, no saddle paresthesias. No recent spine surgery, no hardware in her spine. Patient wonders if she had an allergic reaction to that time with MRI, she has no lip swelling tongue swelling facial swelling, she is not short of breath, no chest pain, no wheezing. Patient is vaccinated for COVID. Related Data Home Medications Medication Instructions Recorded Confirmed calcium citrate 315 mg-vitamin D3 1 tab PO BID 01/24/20 07/07/20 5 mcg (200 unit) tablet lithium carbonate 300 mg capsule 900 mg PO BEDTIME cap 01/24/20 07/07/20 lurasidone 20 mg tablet (Latuda) 20 mg PO DAILY 01/24/20 07/07/20 thyroid (pork) 15 mg tablet ([employer] 15 mg PO BID tab 05/12/20 07/07/20 Thyroid) thyroid (pork) 30 mg tablet 30 mg PO BID tab 05/12/20 07/07/20 (Gilbert Thyroid) diazepam 2 mg tablet 2 mg PO TID PRN 05/29/20 07/07/20 flqnters-rgrnqkha-fffy 45 mg-folic cap PO DAILY cap 05/29/20 07/07/20 acid 800 mcg-vit K 120 mcg capsule (Bariatric Multivitamins) trazodone 100 mg tablet 100 mg PO .qhs PRN tab 05/29/20 07/07/20 Previous Rx's Medication Instructions Recorded ascorbic acid (vitamin C) 500 mg 500 mg PO DAILY #30 tab 04/18/20 tablet (Vitamin C) pantoprazole 40 mg tablet,delayed 40 mg PO DAILY #30 tab 05/29/20 release cyanocobalamin (vitamin B-12) 1,000 mcg IM Q4W 90 Days #10 ml 06/26/20 1,000 mcg/mL injection solution ondansetron HCl 4 mg tablet 4 mg PO Q6H PRN #30 tab 07/07/20 (Zofran) phentermine 37.5 mg capsule 37.5 mg PO DAILY #30 cap 07/07/20 sucralfate 1 gram tablet (Carafate) 1 g PO QIDACHS #90 tab 07/07/20 oxycodone 5 mg capsule 5 mg PO Q6H 3 Days #12 cap 10/04/20 prednisone 20 mg tablet 60 mg PO DAILY 5 Days #15 tab 10/04/20 Allergies Allergy/AdvReac Type Severity Reaction Status Date / Time amoxicillin [Amoxicillin] Allergy Severe HIVES, Verified 10/04/20 11:18 swelling Review of Systems Constitutional: Constitutional: Denies body ache(s), Denies chills, Denies fatigue, Denies fever(s), Denies headache(s), Denies malaise and Reports weakness Eyes: Eyes: Denies blurry vision and Denies diplopia ENT: Denies vertigo, Denies dizziness, Denies otalgia, Denies headache(s), Denies mouth pain, Denies post nasal drip, Denies sinus pain, Denies sinus pressure, Denies sore throat and Denies throat swelling Cardiovascular: Cardiovascular: Denies chest pain, Denies syncope, Reports leg edema, Denies lightheadedness, Denies Loss of Consciousness, Denies palpitations and Denies dyspnea Respiratory: Respiratory: Denies chest congestion, Denies cough, Denies dyspnea and Denies wheezing Gastrointestinal: Gastrointestinal: Denies abdominal pain, Denies hematochezia, Denies constipation, Denies fecal incontinence, Denies diarrhea and Denies vomiting Genitourinary: Genitourinary: Denies dysuria, Denies flank pain, Reports urinary incontinence, Denies urinary hesitancy and Denies urinary urgency Musculoskeletal: Musculoskeletal: Reports back pain, Reports muscle weakness and Reports tingling (anterior thighs) Integumentary/Breasts: Skin/Breast: Reports erythema (anterior shins) Neurologic: Denies confusion, Denies vertigo, Denies dizziness, Denies syncope, Denies headache(s), Reports tingling (anterior thighs) and Reports weakness Comments: no saddle parthesias Psychiatric: Psychiatric: Denies anxiety, Denies confusion and Denies depression Endocrine: Endocrine: Denies fatigue and Denies palpitations Allergic/Immunologic: Allergic/Immunologic: Denies throat swelling and Denies wheezing PMFSH Past Medical History Medical History ADHD Anemia Anxiety and depression Back pain Bipolar disorder DDD (degenerative disc disease) GERD (gastroesophageal reflux disease) Hx of small bowel obstruction Hypercholesterolemia Iron deficiency anemia Lumbar disc herniation Obesity Osteoarthritis PTSD (post-traumatic stress disorder) Right rotator cuff tear Surgical History History of adjustable gastric banding History of removal of laparoscopic gastric banding device History of Theo-en-Y gastric bypass Hx laparoscopic cholecystectomy Hx of section Hx of laminectomy Hx of laparoscopic gastric banding Hx of tonsillectomy S/P panniculectomy Family History Family History Father HTN (hypertension) DM (diabetes mellitus) Bladder cancer Prostate cancer Hyperlipidemia Mother No problems noted. Brother No problems noted. Sister No problems noted. Son No problems noted. Daughter No problems noted. Social History Social History Alcohol intake: never Advance Directives: No Advance Directives Information Provided: Yes Physical Exam Vital Signs: Vital Signs: Last Vital Signs Temp 98 F 10/04/20 11:18 Pulse 69 10/04/20 13:48 Resp 18 10/04/20 13:48 BP 135/79 10/04/20 13:48 Pulse Ox 100 10/04/20 13:48 Body Mass Index 32.8 Const: General: no acute distress, alert and awake; No confusion Nutritional Appearance: well nourished and obese centrally obese Orientation/consciousness: patient oriented x3 and No confusion Limitations: no limitations HENMT: Head: Yes normal to inspection, Yes normocephalic and Yes atraumatic Ears: hearing grossly normal bilaterally General nose exam: Normal external nose present Mouth: Normal oral and palatal mucosa present Throat: Yes posterior oropharynx normal Eyes: Conjunctivae: conjunctivae normal Pupils: Equal, round and reactive pupils present EOM: EOMs intact bilaterally Neck: Neck: Yes full ROM, Yes no lymphadenopathy, Yes no meningeal signs, Yes trachea midline and Yes supple Resp: Effort & Inspection: normal respiratory effort and able to speak in complete sentences Auscultation: clear to auscultation bilaterally, no crackles, no rales, no rhonchi and no wheezes Cardio: Rate: regular rate Rhythm: regular rhythm Heart sounds: S1 normal heart sound present and S2 normal heart sound present GI: Inspection: Yes normal to inspection Palpation (GI): Soft to palpation, nontender, no guarding and not rigid Percussion: Yes normal to percussion Auscultation: normal bowel sounds Rectal Exam - Female: visual inspection normal and normal sphincter tone : General: Yes no CVA tenderness Back/Spine/Pelvis: Back: no CVA tenderness Cervical Spine: cervical ROM normal and No Cervical spine tenderness Thoracic/Lumbar Spine: Thoracic/lumbar spine scar(s), thoraco-lumbar ROM normal, No thoracic spinal tenderness and lumbar spinal tenderness at L2, at L3 and at L4 Skin: Other: Mild erythema and swelling bilateral anterior distal lower extremities Neuro: General: patient oriented x3, tone normal, no meningeal signs, no focal motor deficits and No confusion Cranial nerves: Yes Equal, round and r eactive pupils present Motor exam (neuro): Abnormal motor strength present (4/5 bilateral thighs, 4/5 bilteral knees) Sensory Exam: Abnormal lower extremity sensory exam and Perineum abnormal exam normal Deep tendon reflexes (DTR's): Right patellar reflex intensity grade: 1+ and Left patellar reflex intensity grade: 1+ Extrem: General: Yes normal to inspection Right lower extremity: full ROM, normal capillary refill and lower leg Details: erythema Location: of the distal lower leg Location: anteriorly; Negative for no tenderness and no unusual warmth Left lower extremity: full ROM, normal capillary refill and lower leg Details: erythema Location: of the distal lower leg Location: anteriorly; Negative for no tenderness and no unusual warmth Psych: Appearance: grossly normal Affect: normal affect Attitude: cooperative Thought process: Normal thought process present Course Course Course Narrative: 60-year-old female with a past medical history of degenerative disc disease and remote history of lumbar laminectomy who is followed by Spine at [facility] presents for worsening back pain. Patient had an MRI at [facility] 2 days ago, but she does not know the results. Yesterday patient went to the beach, and could not walk because her legs were painful. States her legs feel swollen. She was incontinent of urine while sleeping last night. On exam, patient has a heart rate of 101, is afebrile, satting 100% on room air. Patient has mild redness and anterior distal lower extremities, no calf tenderness to palpate bilaterally. Patient is weak in her legs with 4/5 strength in her bilateral thighs and bilateral knees. Patient can ambulate, her gait is shuffling. Patient has rectal tone, patient has sensation to pinching in her perineum. Patient is tender over her lumbar spine. Requested records from Neurosurgery at [facility] Will get D-dimer to rule out bilateral DVT, however spinal etiology is more likely D-dimer negative, COVID negative, labs are unremarkable. Requested MR from [facility], neurosurgery at [facility] Have not received copy of MRI report despite multiple attempts. Brandi, physician addictions counselor assistant from Neurosurgery at [facility] called, discussed patient. Brandi will review MRI and call back. Brandi called back and said there is no recent MRI at [facility]. Discussed that patient has normal rectal tone, has perineal sensation, and she can walk, this is unlikely cauda equinus syndrome. Will obtain CPK, as patient was at the beach yesterday, it was very hot, and she has now leg pain. CPK is 932, with a clean urine. CPK not 5 times the upper limit of normal. Dischrged pt home on prednisone nd short course oxycodone, counseled her to call [facility] Neurosurgery on Tuesday. Medical Decision Making Lab Data Result diagrams: 10/04/20 12:03 10/04/20 12:03 Labs: Lab Results 10/04/20 10/04/20 10/04/20 Range/Units 12:03 12:03 12:03 WBC 5.9 (4.8-10.8) X10*3/uL RBC 3.99 L (4.20-5.50) X10*6/uL Hgb 11.8 L (12.0-16.0) g/dl Hct 36.4 L (37-47) % MCV 91.2 (80-98) fL MCH 29.6 (27.0-33.0) pg MCHC 32.4 (31.0-35.0) g/dl RDW 13.5 (11.0-16.0) % Plt Count 182 D (160-400) X10*3/uL MPV 9.8 (9.4-12.3) fL Immature Gran % (Auto) 0.2 (0.0-0.4) % Neut % (Auto) 60.3 (45-73) % Lymph % (Auto) 26.1 (20-40) % [place] % (Auto) 8.4 (2-11) % Eos % (Auto) 4.7 H (0-4) % Baso % (Auto) 0.3 (0-2) % Lymph # (Auto) 1.6 (1.2-4.9) X10*3/uL [place] # (Auto) 0.5 (0.1-1.2) X10*3/uL Eos # (Auto) 0.3 (0.0-0.4) X10*3/uL Baso # (Auto) 0.0 (0.0-0.2) X10*3/uL Abs Immat Gran (auto) 0.01 (0.00-0.03) X10*3/uL Absolute Neuts (auto) 3.6 (2.0-8.3) X10*3/uL Absolute Nucleated RBC 0.000 (0.0-0.012) X10*3/uL Nucleated RBC % (auto) 0.0 (0.0-0.2) /100WBC D-Dimer < 200 NG/ML Sodium 139 (135-145) mmol/L Potassium 3.7 (3.3-5.1) mmol/L Chloride 102 (96-108) mmol/L Carbon Dioxide 29 (22-29) mmol/L Anion Gap 12 (12-20) BUN 11 (9-16) mg/dL Creatinine 0.84 (0.5-1.4) mg/dL Estim Creat Clear Calc 88.9 Estimated GFR > 60 Random Glucose 102 (60-115) mg/dL Calcium 8.9 (8.4-10.2) mg/dL Total Bilirubin 0.7 (0.0-1.0) mg/dL AST 42 H D (5-31) U/L ALT 20 (0-31) U/L Alkaline Phosphatase 74 (39-117) U/L Total Creatine Kinase 932 H (26-140) U/L Total Protein 5.9 L (6.5-8.0) g/dL Albumin 3.8 (3.5-5.0) g/dL Urine Color Urine Appearance Urine pH (5.0-8.0) Ur Specific [place] (1.005-1.025) Urine Protein (NEG-TRACE) MG/DL Urine Glucose (UA) (NEG) MG/DL Urine Ketones (NEG) MG/DL Urine Blood (NEG) Urine Nitrite (NEG) Ur Leukocyte Esterase (NEG) COVID-19 (WILLOW) (Negative) COVID-19 Clin Com 10/04/20 10/04/20 Range/Units 12:04 15:45 WBC (4.8-10.8) X10*3/uL RBC (4.20-5.50) X10*6/uL Hgb (12.0-16.0) g/dl Hct (37-47) % MCV (80-98) fL MCH (27.0-33.0) pg MCHC (31.0-35.0) g/dl RDW (11.0-16.0) % Plt Count (160-400) X10*3/uL MPV (9.4-12.3) fL Immature Gran % (Auto) (0.0-0.4) % Neut % (Auto) (45-73) % Lymph % (Auto) (20-40) % [place] % (Auto) (2-11) % Eos % (Auto) (0-4) % Baso % (Auto) (0-2) % Lymph # (Auto) (1.2-4.9) X10*3/uL [place] # (Auto) (0.1-1.2) X10*3/uL Eos # (Auto) (0.0-0.4) X10*3/uL Baso # (Auto) (0.0-0.2) X10*3/uL Abs Immat Gran (auto) (0.00-0.03) X10*3/uL Absolute Neuts (auto) (2.0-8.3) X10*3/uL Absolute Nucleated RBC (0.0-0.012) X10*3/uL Nucleated RBC % (auto) (0.0-0.2) /100WBC D-Dimer NG/ML Sodium (135-145) mmol/L Potassium (3.3-5.1) mmol/L Chloride (96-108) mmol/L Carbon Dioxide (22-29) mmol/L Anion Gap (12-20) BUN (9-16) mg/dL Creatinine (0.5-1.4) mg/dL Estim Creat Clear Calc Estimated GFR Random Glucose (60-115) mg/dL Calcium (8.4-10.2) mg/dL Total Bilirubin (0.0-1.0) mg/dL AST (5-31) U/L ALT (0-31) U/L Alkaline Phosphatase (39-117) U/L Total Creatine Kinase (26-140) U/L Total Protein (6.5-8.0) g/dL Albumin (3.5-5.0) g/dL Urine Color STRAW Urine Appearance CLEAR Urine pH 6.0 (5.0-8.0) Ur Specific [place] <= 1.005 (1.005-1.025) Urine Protein NEG (NEG-TRACE) MG/DL Urine Glucose (UA) NEG (NEG) MG/DL Urine Ketones NEG (NEG) MG/DL Urine Blood NEG (NEG) Urine Nitrite NEG (NEG) Ur Leukocyte Esterase NEG (NEG) COVID-19 (W[facility]OW) Negative (Negative) COVID-19 Clin Com See Note Discharge Plan Discharge Clinical Impression: Back pain Qualifiers: Back pain location: low back pain Chronicity: acute Back pain laterality: bilateral Sciatica presence: with sciatica Sciatica laterality: bilateral sciatica Qualified Code(s): M54.42 - Lumbago with sciatica, left side Patient Disposition: Home, Self-Care Additional Instructions: Please return to the emergency room if you have any more urinary incontinence, or any incontinence of bowel. Please return if you have worsening leg weakness, numbness or tingling in your groin, fevers, or any other new or concerning symptoms. You had your prednisone for today, please take your prednisone starting tomorrow and taken in the morning. Take the oxycodone as prescribed as needed for pain. Please call [facility] neurosurgery Tuesday morning. Their number is [phone]. Telephone that you were in the emergency room, and you need a follow-up appointment. Prescriptions: New prednisone 20 mg tablet 60 mg PO DAILY 5 Days Qty: 15 RF: 0 oxycodone 5 mg capsule 5 mg PO Q6H 3 Days Qty: 12 RF: 0 No Action ascorbic acid (vitamin C) [Vitamin C] 500 mg tablet 500 mg PO DAILY Qty: 30 RF: 11 cyanocobalamin (vitamin B-12) 1,000 mcg/mL solution 1,000 mcg IM Q4W 90 Days Qty: 10 RF: 3 calcium citrate-vitamin D3 315 mg-5 mcg (200 unit) tablet 1 tab PO BID RF: 0 lithium carbonate 300 mg capsule 900 mg PO BEDTIME RF: 0 Latuda 20 mg tablet 20 mg PO DAILY RF: 0 thyroid (pork) [Gilbert Thyroid] 30 mg tablet 30 mg PO BID RF: 0 thyroid (pork) [[employer] Thyroid] 15 mg tablet 15 mg PO BID RF: 0 diazepam 2 mg tablet 2 mg PO TID PRNRF: 0 trazodone 100 mg tablet 100 mg PO .qhs PRN (Reason: prn) RF: 0 Bariatric Multivitamins 45 mg iron- 800 mcg-120 mcg capsule PO DAILY RF: 0 pantoprazole 40 mg tablet,delayed release (DR/EC) 40 mg PO DAILY Qty: 30 RF: 6 sucralfate [Carafate] 1 gram tablet 1 g PO QIDACHS Qty: 90 RF: 6 ondansetron HCl [Zofran] 4 mg tablet 4 mg PO Q6H PRN (Reason: nausea and vomiting) Qty: 30 RF: 1 phentermine 37.5 mg capsule 37.5 mg PO DAILY Qty: 30 RF: 0
[2020-10-04] MEDS: oxyCODONE HCl Immed Release 5 MG TABLET PO (12:07)
[2020-10-04 12:08] LABS: MANUAL DIFF FLAG NO
[2020-10-04 12:10] LABS: Basophils Percent Auto 0.3 % (0-2); Eosinophils Absolute Auto 0.3 X10*3/uL (0.0-0.4); Eosinophils Percent Auto 4.7 % (0-4); Hematocrit 36.4 % (37-47); Hemoglobin 11.8 g/dl (12.0-16.0); Imm Gran Abs Auto 0.01 X10*3/uL (0.00-0.03); Imm Gran Pct Auto 0.2 % (0.0-0.4); Lymphocytes Absolute Auto 1.6 X10*3/uL (1.2-4.9); Lymphocytes Percent Auto 26.1 % (20-40); Mean Corpuscular HGB Conc 32.4 g/dl (31.0-35.0); Mean Corpuscular Hemoglobin 29.6 pg (27.0-33.0); Mean Corpuscular Volume 91.2 fL (80-98); Mean Platelet Volume 9.8 fL (9.4-12.3); Monocytes Absolute Auto 0.5 X10*3/uL (0.1-1.2); Monocytes Percent Auto 8.4 % (2-11); Neutrophils Absolute Auto 3.6 X10*3/uL (2.0-8.3); Neutrophils Percent Auto 60.3 % (45-73); Platelet Count 182 X10*3/uL (160-400); Red Blood Count 3.99 X10*6/uL (4.20-5.50); Red Cell Distribution Width 13.5 % (11.0-16.0); White Blood Count 5.9 X10*3/uL (4.8-10.8)
[2020-10-04 12:24] LABS: D Dimer < 200 NG/ML
[2020-10-04 12:25] LABS: COVID-19 Test Negative (Negative)
[2020-10-04 12:44] LABS: Alanine Aminotransferase 20 U/L (0-31); Albumin Level 3.8 g/dL (3.5-5.0); Alkaline Phosphatase 74 U/L (39-117); Anion Gap 12 (12-20); Aspartate Amino Transferase 42 U/L (5-31); Bilirubin Total 0.7 mg/dL (0.0-1.0); Blood Urea Nitrogen 11 mg/dL (9-16); Calcium 8.9 mg/dL (8.4-10.2); Carbon Dioxide 29 mmol/L (22-29); Chloride 102 mmol/L (96-108); Creatinine Clr Calc Pharmacy 88.9; Estimated Glomerular Filt Rate > 60; Glucose Random 102 mg/dL (60-115); Potassium 3.7 mmol/L (3.3-5.1); Sodium 139 mmol/L (135-145); Total Protein 5.9 g/dL (6.5-8.0)
[2020-10-04 13:47] VITALS: BP 135/79; PULSE 70; RESP 16
[2020-10-04 13:48] VITALS: BP 135/79; PULSE 69; RESP 18; O2SAT 100
--- NOTE | 2020-10-04 14:09 | PC.NURSE ---
SEC TO CALL [facility] TO SEE IF PT'S MRI RESULTS ARE AVAILABLE
[2020-10-04] MEDS: predniSONE 20 MG TABLET 60 MG PO (14:23)
--- NOTE | 2020-10-04 14:42 | PC.NURSE ---
AWAITING CALL BACK FROM [facility] RE:MRI RESULTS
[2020-10-04 15:50] LABS: Glucose Urine UA NEG (NEG); Leukocyte Esterase Urine NEG (NEG); Nitrite Urine NEG (NEG); Specific Gravity - Urine <= 1.005 (1.005-1.025); Urine Blood NEG (NEG); Urine Ketones NEG (NEG); Urine Protein NEG (NEG-TRACE)
[2020-10-04 15:52] LABS: Appearance Urine CLEAR; Color Urine STRAW
[2020-10-04 16:00] VITALS: RESP 18
== END 2020-10-04 16:29 | disposition home or self-care (01) ==
PROVIDERS: Physician Assistant; Emergency Provider Emergency Medicine; PCP Internal Medicine
DX: M54.42 Lumbago with sciatica, left side (principal); M79.605 Pain in left leg; M79.604 Pain in right leg; Z20.822 Contact with and (suspected) exposure to COVID-19; R53.1 Weakness
CPT/HCPCS: 36415; 80053; 81003; 82550; 85025; 85379; 87635; 99283; 99284

== ENCOUNTER 2020-10-13 12:53 | Emergency (ER) | payer OTHER, SELFPAY ==
--- NOTE | ~2020-10-13 | MR_ITS ---
EXAMINATION: MR LUMBAR SPINE WITHOUT AND WITH CONTRAST CLINICAL INFORMATION: Urinary incontinence. Discitis/osteomyelitis. COMPARISON: CT lumbar spine from 05/01/2020. Lumbar spine MRI from 07/01/2014. TECHNIQUE: MRI of the lumbar spine was obtained using routine sequences without and following the administration of 10 mL of Gadavist intravenous contrast. FINDINGS: Normal anatomic alignment. Advanced degenerative disc disease at L2-L3 and L4-L5. Moderate degenerative disease L1-L2 and L3-L4. Associated mixed Modic type discogenic endplate changes including moderate Modic type I discogenic edema/enhancement at L2-L3. No additional suspicious marrow edema. The vertebral body heights are well-maintained. At L2-L3. The conus medullaris terminates at the level of L1-L2. The distal spinal cord is normal in appearance. No epidural collection. No additional abnormal contrast enhancement. No evidence of significant paraspinal edema or collection. No significant abnormalities of the paraspinal musculature. Limited evaluation of the intra-abdominal structures without significant abnormalities. The abdominal aorta is of normal contour and caliber. AXIAL SPINAL LEVELS: L1-L2: Mild diffuse disc bulge. There is moderate bilateral facet joint arthropathy with ligamentum flavum hypertrophy. There is mild right and no left neural foraminal stenosis. There is no spinal canal stenosis. L2-L3: Moderate diffuse disc bulge with posterior osseous ridging. There is severe bilateral facet joint arthropathy. There is moderate right and mild left neural foraminal stenosis. There is stenosis of the subarticular zones with mild spinal canal stenosis centrally. L3-L4: Moderate diffuse disc bulge. There is moderate bilateral facet joint arthropathy. There is moderate right and [id number] left neural foraminal stenosis. There is stenosis of the subarticular zones with mild spinal canal stenosis centrally. L4-L5: Mild diffuse disc bulge. There is moderate bilateral facet joint arthropathy. There is moderate to severe bilateral neural foraminal stenosis. There is narrowing of the subarticular zones with no overt spinal canal stenosis centrally. L5-S1: Mild diffuse disc bulge. There is moderate bilateral facet joint arthropathy. There is moderate right and mild left neural foraminal stenosis. There is no spinal canal stenosis. MR/MR lumbar spine wo/w con IMPRESSION: Moderate multilevel degenerative spondyloarthropathy of the lumbar spine as described in detail above. Most notably, there are mild spinal canal stenoses at L2-L3 and L3-L4. Narrowings/stenoses of the subarticular zones from L2-L5. Moderate to severe neural foraminal stenoses from L2-S1. There is advanced degenerative disc disease at L2-L3 with associated Modic type I discogenic edema/enhancement. While it would be difficult to fully exclude early infection at this level, there is no evidence of disc edema, significant paraspinal edema/fluid collection, or epidural collection at this time. Findings remain suggestive of sequela of advanced degenerative spondyloarthropathy.
[2020-10-13 15:01] LABS: MANUAL DIFF FLAG NO
[2020-10-13 15:03] VITALS: BP 151/76; PULSE 81; RESP 16; TEMP 37.3; O2SAT 100; BMI 33.3
[2020-10-13 15:04] LABS: Basophils Percent Auto 0.2 % (0-2); Eosinophils Absolute Auto 0.2 X10*3/uL (0.0-0.4); Eosinophils Percent Auto 1.6 % (0-4); Hematocrit 41.7 % (37-47); Hemoglobin 13.3 g/dl (12.0-16.0); Imm Gran Abs Auto 0.06 X10*3/uL (0.00-0.03); Imm Gran Pct Auto 0.4 % (0.0-0.4); Lymphocytes Absolute Auto 3.1 X10*3/uL (1.2-4.9); Lymphocytes Percent Auto 23.1 % (20-40); Mean Corpuscular HGB Conc 31.9 g/dl (31.0-35.0); Mean Corpuscular Hemoglobin 29.8 pg (27.0-33.0); Mean Corpuscular Volume 93.5 fL (80-98); Mean Platelet Volume 9.5 fL (9.4-12.3); Monocytes Absolute Auto 1.1 X10*3/uL (0.1-1.2); Monocytes Percent Auto 8.1 % (2-11); Neutrophils Percent Auto 66.6 % (45-73); Platelet Count 274 X10*3/uL (160-400); Red Blood Count 4.46 X10*6/uL (4.20-5.50); Red Cell Distribution Width 13.7 % (11.0-16.0); White Blood Count 13.5 X10*3/uL (4.8-10.8)
[2020-10-13 15:27] LABS: Anion Gap 13 (12-20); Blood Urea Nitrogen 15 mg/dL (9-16); Calcium 9.6 mg/dL (8.4-10.2); Carbon Dioxide 25 mmol/L (22-29); Chloride 100 mmol/L (96-108); Creatinine Clr Calc Pharmacy 80.9; Estimated Glomerular Filt Rate > 60; Glucose Random 142 mg/dL (60-115); Potassium 4.2 mmol/L (3.3-5.1); Sodium 134 mmol/L (135-145)
--- NOTE | 2020-10-13 19:17 | ED_ITS ---
HPI - General Adult General Chief complaint: Recheck/Abnormal Lab/Rx Stated complaint: iv therapy Time Seen by Provider: 10/13/20 17:48 Source: patient Mode of arrival: ambulatory Limitations: no limitations History of Present Illness HPI narrative: 60 y/o female with chronic lower back pain s/p lower back surgery in 1986, hx lumbar disc herniation, hx gastric bypass in 2002, hypothyroidism, anxiety, GERD, hx multiple falls who is sent to the ER by her PCP Dr. Santiago for abnormal lumbar spine MRI done on 10/02. Patient presents with the read that reports concerning findings of possible discitis or osteomyelitis with paravertebral soft tissue swelling and disc edema. The MRI was ordered by [facility] at [facility]. They never saw the results. She brought the read to Dr. Santiago who directed her to come to the ER for IV antibiotics. She denies fever or chills. She has shooting pain down her right leg from her lower back that has been chronic. She has no saddle paraestheisas however she reports 3 episodes of nocturnal urinary incontinence over the last 2 weeks. No bowel incontinence. She is ambulating normally. No LE weakness. MD complaint: abnormal MRI results Onset (ago): day(s) () Location: back Radiation: extremity Severity: moderate Severity scale (1-10): 6 Quality: stabbing and sharp Pain Consistency: intermittent Relieving factors: immobilization and medication Exacerbating factors: movement Associated symptoms: denies other symptoms Treatments prior to arrival: none Related Data Home Medications Medication Instructions Recorded Confirmed lurasidone 20 mg tablet (Latuda) 20 mg PO DAILY 01/24/20 10/13/20 thyroid (pork) 15 mg tablet ([employer] 15 mg PO BID tab 05/12/20 10/13/20 Thyroid) thyroid (pork) 30 mg tablet 30 mg PO BID tab 05/12/20 10/13/20 ([place] Thyroid) diazepam 2 mg tablet 2 mg PO TID PRN 05/29/20 10/13/20 carisoprodol 350 mg tablet 1 tab PO QID PRN 10/13/20 10/13/20 cholecalciferol (vitamin D3) 125 1 cap PO DAILY 10/13/20 10/13/20 mcg (5,000 unit) capsule cyanocobalamin (vitamin B-12) 1 ml IM Q4W 10/13/20 10/13/20 1,000 mcg/mL injection solution lithium carbonate 300 mg 2 tab PO BEDTIME 10/13/20 10/13/20 tablet,extended release oxycodone 10 mg tablet 1 tab PO TID PRN 10/13/20 10/13/20 trazodone 100 mg tablet 50 mg PO BID PRN 10/13/20 10/13/20 trazodone 100 mg tablet 100 - 200 mg PO BEDTIME PRN 10/13/20 10/13/20 Previous Rx's Medication Instructions Recorded pantoprazole 40 mg tablet,delayed 40 mg PO DAILY #30 tab 05/29/20 release oxycodone 5 mg tablet 5 mg PO Q8H PRN #7 tab 10/13/20 Allergies Allergy/AdvReac Type Severity Reaction Status Date / Time amoxicillin [Amoxicillin] Allergy Severe HIVES, Verified 10/13/20 15:09 swelling Review of Systems Constitutional: Constitutional: Denies chills, Denies fever(s) and Denies headache(s) Eyes: Eyes: Reports no additional eye complaints ENT: Reports Normal hearing present, Denies headache(s) and Denies neck pain Cardiovascular: Cardiovascular: Denies chest pain and Denies dyspnea Respiratory: Respiratory: Denies cough and Denies dyspnea Gastrointestinal: Gastrointestinal: Denies abdominal pain, Denies tenesmus, Denies diarrhea, Denies nausea and Denies vomiting Genitourinary: Genitourinary: Denies difficulty voiding, Denies dysuria, Denies pelvic pain, Reports urinary incontinence, Denies urinary hesitancy and Denies urinary urgency Musculoskeletal: Musculoskeletal: Reports back pain, Denies neck pain, Denies numbness and Reports radiating pain into limb Neurologic: Reports Normal hearing present, Denies headache(s) and Denies numbness Psychiatric: Psychiatric: Reports anxiety Hematologic/Lymphatic: Hematologic/Lymphatic: Denies easy bleeding and Denies easy bruising PMFSH Past Medical History Medical History ADHD Anemia Anxiety and depression Back pain Bipolar disorder DDD (degenerative disc disease) GERD (gastroesophageal reflux disease) Hx of small bowel obstruction Hypercholesterolemia Iron deficiency anemia Lumbar disc herniation Obesity Osteoarthritis PTSD (post-traumatic stress disorder) Right rotator cuff tear Surgical History History of adjustable gastric banding History of removal of laparoscopic gastric banding device History of Theo-en-Y gastric bypass Hx laparoscopic cholecystectomy Hx of section Hx of laminectomy Hx of laparoscopic gastric banding Hx of tonsillectomy S/P panniculectomy Family History Family History Father HTN (hypertension) DM (diabetes mellitus) Bladder cancer Prostate cancer Hyperlipidemia Mother No problems noted. Brother No problems noted. Sister No problems noted. Son No problems noted. Daughter No problems noted. Social History Social History Housing: House Alcohol intake: never Patient Tobacco Use Status: Never used Tobacco Advance Directives: No Advance Directives Information Provided: Yes service: No Current occupational status: disabled Physical Exam Vital Signs: Vital Signs: Last Vital Signs Temp 99.2 F 10/13/20 15:03 Pulse 81 10/13/20 15:03 Resp 16 10/13/20 15:03 BP 151/76 H 10/13/20 15:03 Pulse Ox 100 10/13/20 15:03 Body Mass Index 33.3 Const: General: cooperative, healthy appearing, comfortable, no acute distress and well developed Nutritional Appearance: average body habitus Orientation/consciousness: patient oriented x3 Limitations: no limitations HENMT: Head: Yes normal to inspection Ears: hearing grossly normal bilaterally General nose exam: Normal external nose present and Normal nares present Face and sinus: Yes normal facial exam and Yes face symmetric Mouth: Normal oral and palatal mucosa present, lip normal and tongue normal Teeth and gingiva: dentition normal and gingiva normal Eyes: General: appearance normal, both eyes and all related structures Neck: Neck: Yes normal visual inspection, Yes full ROM and Yes no lymphadenopathy Chest: Chest palpation & inspection: normal inspection of the chest Resp: Effort & Inspection: normal respiratory effort and able to speak in complete sentences Auscultation: clear to auscultation bilaterally Cardio: Rate: regular rate Rhythm: regular rhythm Heart sounds: S1 normal heart sound present and S2 normal heart sound present GI: Inspection: Yes normal to inspection Palpation (GI): Soft to palpation, not firm and nontender Back/Spine/Pelvis: Cervical Spine: normal cervical lordosis and cervical ROM normal Thoracic/Lumbar Spine: thoracic and lumbar spine normal to inspection, Thoracic/lumbar spine scar(s), pain with thoraco-lumbar ROM and No lumbar spinal tenderness Sacroiliac joints: on the right tender to palpation Skin: General skin exam: no rashes or lesions noted Neuro: General: patient oriented x3, gait normal, tone normal and moves all extremities Cranial nerves: Yes Normal hearing present Cognition (Neuro): normal cognition Gait exam (Neuro): Normal gait present Motor exam (neuro): 5/5 motor strength present throughout, Normal motor muscle tone present throughout and Motor abnormalities not present Extrem: General: Yes normal to inspection, Yes full ROM and Yes no pedal edema Psych: Appearance: grossly normal and well kempt Mental Status: mental status grossly normal Course Course Course Narrative: 60 y/o female with history of chronic LBP since the who presents to the ER with abnormal MRI results from 11 days ago. She had 3 episodes of urinary incontinence. No other episodes and no other concerning signs or symptoms of cauda equina. She is ambuating well. She has no fevers. WBC 13.5. Will get repeat MRI STAT. Reevaluation(s) Reevaluation #1: MRI showing NO evidence of cauda equina or convincing evidence of active infection. Changes seen on 10/02/20 are no longer present. Moderate multilevel degenerative spondyloarthropathy of the lumbar spine as described in detail above. Most notably, there are mild spinal canal stenoses at L2-L3 and L3-L4. Narrowings/stenoses of the subarticular zones from L2-L5. Moderate to severe neural foraminal stenoses from L2-S1. ? There is advanced degenerative disc disease at L2-L3 with associated Modic type I discogenic edema/enhancement. While it would be difficult to fully exclude early infection at this level, there is no evidence of disc edema, significant paraspinal edema/fluid collection, or epidural collection at this time. Findings remain suggestive of sequela of advanced degenerative spondyloarthropathy. Results d/w patient. Given her reassuring MRI and physical exam, there does not seem to be clinical evidence of support cauda equina or discitis/osteomyelitis. Case was d/w Dr. Mann as well. She is stable for discharge home with pain control and outpatient follow up. She agrees with plan and will come back to the ER if she develops any worsening symptoms. Medical Decision Making Lab Data Result diagrams: 10/13/20 14:57 10/13/20 14:57 Labs: Lab Results 10/13/20 10/13/20 10/13/20 Range/Units 14:57 14:57 20:05 WBC 13.5 H (4.8-10.8) X10*3/uL RBC 4.46 (4.20-5.50) X10*6/uL Hgb 13.3 (12.0-16.0) g/dl Hct 41.7 (37-47) % MCV 93.5 (80-98) fL MCH 29.8 (27.0-33.0) pg MCHC 31.9 (31.0-35.0) g/dl RDW 13.7 (11.0-16.0) % Plt Count 274 D (160-400) X10*3/uL MPV 9.5 (9.4-12.3) fL Immature Gran % (Auto) 0.4 (0.0-0.4) % Neut % (Auto) 66.6 (45-73) % Lymph % (Auto) 23.1 (20-40) % [place] % (Auto) 8.1 (2-11) % Eos % (Auto) 1.6 (0-4) % Baso % (Auto) 0.2 (0-2) % Lymph # (Auto) 3.1 (1.2-4.9) X10*3/uL [place] # (Auto) 1.1 (0.1-1.2) X10*3/uL Eos # (Auto) 0.2 (0.0-0.4) X10*3/uL Baso # (Auto) 0.0 (0.0-0.2) X10*3/uL Abs Immat Gran (auto) 0.06 H (0.00-0.03) X10*3/uL Absolute Neuts (auto) 9.0 H (2.0-8.3) X10*3/uL Absolute Nucleated RBC 0.000 (0.0-0.012) X10*3/uL Nucleated RBC % (auto) 0.0 (0.0-0.2) /100WBC Sodium 134 L (135-145) mmol/L Potassium 4.2 (3.3-5.1) mmol/L Chloride 100 (96-108) mmol/L Carbon Dioxide 25 (22-29) mmol/L Anion Gap 13 (12-20) BUN 15 (9-16) mg/dL Creatinine 0.93 (0.5-1.4) mg/dL Estim Creat Clear Calc 80.9 Estimated GFR > 60 Random Glucose 142 H D (60-115) mg/dL Lactic Acid 0.8 (0.5-2.0) mmol/L Calcium 9.6 D (8.4-10.2) mg/dL COVID-19 ([facility]) (Negative) COVID-19 Clin Com 10/13/20 Range/Units 20:05 WBC (4.8-10.8) X10*3/uL RBC (4.20-5.50) X10*6/uL Hgb (12.0-16.0) g/dl Hct (37-47) % MCV (80-98) fL MCH (27.0-33.0) pg MCHC (31.0-35.0) g/dl RDW (11.0-16.0) % Plt Count (160-400) X10*3/uL MPV (9.4-12.3) fL Immature Gran % (Auto) (0.0-0.4) % Neut % (Auto) (45-73) % Lymph % (Auto) (20-40) % [place] % (Auto) (2-11) % Eos % (Auto) (0-4) % Baso % (Auto) (0-2) % Lymph # (Auto) (1.2-4.9) X10*3/uL [place] # (Auto) (0.1-1.2) X10*3/uL Eos # (Auto) (0.0-0.4) X10*3/uL Baso # (Auto) (0.0-0.2) X10*3/uL Abs Immat Gran (auto) (0.00-0.03) X10*3/uL Absolute Neuts (auto) (2.0-8.3) X10*3/uL Absolute Nucleated RBC (0.0-0.012) X10*3/uL Nucleated RBC % (auto) (0.0-0.2) /100WBC Sodium (135-145) mmol/L Potassium (3.3-5.1) mmol/L Chloride (96-108) mmol/L Carbon Dioxide (22-29) mmol/L Anion Gap (12-20) BUN (9-16) mg/dL Creatinine (0.5-1.4) mg/dL Estim Creat Clear Calc Estimated GFR Random Glucose (60-115) mg/dL Lactic Acid (0.5-2.0) mmol/L Calcium (8.4-10.2) mg/dL COVID-19 ([facility]) Negative (Negative) COVID-19 Clin Com See Note Discharge Plan Discharge Clinical Impression: Low back pain Qualifiers: Chronicity: chronic Back pain laterality: right Sciatica presence: with sciatica Sciatica laterality: sciatica of right side Qualified Code(s): M54.41 - Lumbago with sciatica, right side Patient Disposition: Home, Self-Care Instructions: Lumbar Radiculopathy (ED), Chronic Back Pain (DC), Lower Back Exercises (ED) Additional Instructions: Your MRI did not show any evidence of active infection. Recommend following up with Dr. Santiago and your Neurosurgeon. Take the prescribed medication as needed for moderate/severe pain, do not drive after you take it. If you develop new or worsening symptoms call 911 or come back to the ER for f urther evaluation. Prescriptions: New oxycodone 5 mg tablet 5 mg PO Q8H PRN (Reason: pain) Qty: 7 RF: 0 No Action carisoprodol 350 mg tablet 1 tab PO QID PRN (Reason: Muscle Spasm) RF: 0 lithium carbonate 300 mg tablet extended release 2 tab PO BEDTIME RF: 0 trazodone 100 mg Tablet 100 - 200 mg PO BEDTIME PRN (Reason: Anxiety) RF: 0 trazodone 100 mg tablet 50 mg PO BID PRN (Reason: Anxiety) RF: 0 oxycodone 10 mg tablet 1 tab PO TID PRN (Reason: pain) RF: 0 cyanocobalamin (vitamin B-12) 1,000 mcg/mL solution 1 ml IM Q4W RF: 0 cholecalciferol (vitamin D3) 125 mcg (5,000 unit) capsule 1 cap PO DAILY RF: 0 Latuda 20 mg tablet 20 mg PO DAILY RF: 0 thyroid (pork) [[place] Thyroid] 30 mg tablet 30 mg PO BID RF: 0 thyroid (pork) [[employer] Thyroid] 15 mg tablet 15 mg PO BID RF: 0 diazepam 2 mg tablet 2 mg PO TID PRN (Reason: Anxiety) RF: 0 pantoprazole 40 mg tablet,delayed release (DR/EC) 40 mg PO DAILY Qty: 30 RF: 6 Referrals: Po,Driss Muñiz MD [Primary Care Provider] - 2 days Interventions: ED Discharge Assessment Last Done: 10/13/20 23:35
[2020-10-13 20:00] VITALS: BP 149/76; PULSE 73; RESP 16; O2SAT 96
[2020-10-13] MEDS: oxyCODONE HCl Immed Release 5 MG TABLET PO (20:14)
[2020-10-13 20:29] LABS: Lactic Acid 0.8 mmol/L (0.5-2.0)
[2020-10-13 20:33] LABS: COVID-19 Test Negative (Negative); IDNOW Serial# 08D9AD1C
--- NOTE | 2020-10-13 21:41 | PC.NURSE ---
PT AWAKE AND ALERT, IV STARTED, PT BACK FROM MRI DEPARTMENT. LABS AND COVID SWAB COMPLETE.
--- NOTE | 2020-10-13 23:32 | PC.NURSE ---
PT AMBULATORY WITH STEADY GAIT. OXYCODONE HELPED LOWER PAIN TO 4/10. PT UNDERSTANDS TO FOLLOW UP WITH PCP AND NEUROLOGIST.
== END 2020-10-13 23:36 | disposition home or self-care (01) ==
PROVIDERS: Physician Assistant; Emergency Provider Internal Medicine; PCP Internal Medicine
DX: M54.41 Lumbago with sciatica, right side (principal); Z20.822 Contact with and (suspected) exposure to COVID-19; Z79.899 Other long term (current) drug therapy
CPT/HCPCS: 36415; 72158; 80048; 83605; 85025; 87040; 87635; 96374; 99284; 99285; A9585

== ENCOUNTER 2020-11-04 15:55 | Emergency (ER) | payer OTHER, SELFPAY ==
--- NOTE | 2020-11-04 | ECG_ITS ---
Test Reason : MED CLEARANCE Blood Pressure : / mmHG Vent. Rate : 085 BPM Atrial Rate : 085 BPM P-R Int : 154 ms QRS Dur : 096 ms QT Int : 426 ms P-R-T Axes : 054 031 035 degrees QTc Int : 506 ms Normal sinus rhythm Possible Left atrial enlargement Prolonged QT Abnormal ECG When compared with ECG of 04-NOV-2020 16:18, No significant change was found Referred By: Coreen Maynard Electronically Signed By:MIGUELINA MO
--- NOTE | ~2020-11-04 | CT_ITS ---
EXAMINATION: CT HEAD WITHOUT CONTRAST CLINICAL INFORMATION: Question intentional overdose, unobserved COMPARISON: 05/01/2020 TECHNIQUE: Contiguous axial imaging was performed from the skull base to vertex without intravenous administration of contrast. This CT examination was performed using dose optimization techniques as appropriate, variously including the following: *Automated exposure control *Adjustment of mA and/or kV according to patient size (this includes techniques or standardized protocols for targeted exams where dose is matched to indication/reason for exam; i.e. extremities or head) *Use of iterative reconstruction technique DLP: 1610 mGy-cm FINDINGS: There is no evidence of acute intracranial hemorrhage or territorial infarction. No abnormal mass effect or midline shift is seen. [place] to white matter differentiation is well preserved. No extra-axial fluid collections are identified. Of the ventricles and sulci are similar in configuration to the prior study. Again seen is a well-circumscribed chronic CSF density focus in the left basal ganglia. There are a few patchy areas of subcortical white matter hypodensity, greatest at the left hip parietal subcortical white matter. The osseous structures and soft tissues are normal. The mastoid air cells and visualized portions of the paranasal sinuses are well aerated. CT/CT head/brain wo con IMPRESSION: No acute intracranial pathology.
--- NOTE | ~2020-11-04 | XR_ITS ---
EXAMINATION: XR CHEST CLINICAL INFORMATION: Overdose COMPARISON: Previous chest x-ray most recent September 2019 TECHNIQUE: Frontal view of the chest was obtained. FINDINGS: The cardiac and mediastinal contours are normal. There are increased markings in the left midlung questionable for atelectasis or small infiltrate. The right lung is clear. There is no pleural effusion or pneumothorax. No acute bone abnormality is seen. XR/XR chest 1V IMPRESSION: Question small left perihilar infiltrate or atelectasis.
[2020-11-04 16:12] VITALS: BP 120/64; PULSE 77; RESP 18; TEMP 37.2; O2SAT 98; BMI 35.2
--- NOTE | 2020-11-04 16:39 | ED_ITS ---
HPI - Overdose General Chief Complaint: Overdose Stated Complaint: Took unknown # of pills Time Seen by Provider: 11/04/20 16:16 Source: patient History of Present Illness HPI Narrative: 60-year-old female with past medical history ED, anemia, anxiety, depression, bipolar, GERD, hyperlipidemia, PTSD, prior substance abuse, presenting to the ED in for unknown overdose on Soma, Valium, and Ativan. Reportedly unintentional/non suicide attempt however patient intentionally took medications/hiding bottles & pills from . Patient only admits to taking Soma today at 10:00 a.m. reports patient with history of abusing medications, sttes he recently returned from vacation, & patient was notably sleepy beginning on Tuesday, left for work this morning, returned this afternoon and brought patient in. States patient was with sister today however not observed all day. Reports patient struggling with sick mother. Patient denies SI. History limited due to patient's lethargy/acute mental status MD complaint: intentional overdose Related Data Home Medications Medication Instructions Recorded Confirmed carisoprodol 350 mg tablet 1 tab PO QID 10/13/20 11/04/20 lithium carbonate 300 mg 2 tab PO BEDTIME 10/13/20 11/04/20 tablet,extended release trazodone 100 mg tablet 100 mg PO BEDTIME PRN 10/13/20 11/04/20 ascorbic acid (vitamin C) 500 mg 1 tab PO DAILY 11/04/20 11/04/20 tablet (Vitamin C) cyanocobalamin (vitamin B-12) 1,000 mcg IM QMONTH 11/04/20 11/04/20 1,000 mcg/mL injection solution lurasidone 20 mg tablet (Latuda) 1 tab PO DAILY 11/04/20 11/04/20 pantoprazole 40 mg tablet,delayed 1 tab PO DAILY 11/04/20 11/04/20 release thyroid (pork) 15 mg tablet (TRANSFER CONTROLLER 1 tab PO BID 11/04/20 11/04/20 Thyroid) thyroid (pork) 30 mg tablet 1 tab PO BID 11/04/20 11/04/20 ([place] Thyroid) Allergies Allergy/AdvReac Type Severity Reaction Status Date / Time amoxicillin [Amoxicillin] Allergy Severe HIVES, Verified 10/13/20 15:09 swelling Review of Systems Review of Systems: Constitutional: No Fatigue, No Malaise ENT/Mouth: No Hearing loss, No Ear Pain, No Nasal Congestion, No sore throat, No Rhinorrhea, No Swallowing Difficulty Eyes: No Eye Pain, No Swelling, No Redness Cardiovascular: No Chest Pain, No SOB, No Dyspnea on Exertion, No Orthopnea, No Edema, No Palpitations Respiratory: No Cough, No Sputum, No Wheezing, No Smoke Exposure, No Dyspnea Gastrointestinal: No Nausea, No Vomiting, No Diarrhea, No Constipation, No Abdominal pain, No Hematochezia, No Melena Genitourinary: No irregular bleeding, No Dysuria, No Urinary Frequency, No Hematuria,No Flank Pain Musculoskeletal: No joint pain, No Myalgias, No Joint Swelling Skin: No Skin Lesions, No rash Neuro: No Weakness, No Numbness, No Paresthesias, No Loss of Consciousness, No Dizziness, No Headache Psych: No Anxiety/Panic, + Depression, No SI/HI, + Social Issues Yes all other systems are reviewed and are negative [facility] Past Medical History Attestation statement: The following information was validated with the patient. Medical History ADHD Anemia Anxiety and depression Back pain Bipolar disorder DDD (degenerative disc disease) GERD (gastroesophageal reflux disease) Hx of small bowel obstruction Hypercholesterolemia Iron deficiency anemia Lumbar disc herniation Obesity Osteoarthritis PTSD (post-traumatic stress disorder) Right rotator cuff tear Surgical History History of adjustable gastric banding History of removal of laparoscopic gastric banding device History of Theo-en-Y gastric bypass Hx laparoscopic cholecystectomy Hx of section Hx of laminectomy Hx of laparoscopic gastric banding Hx of tonsillectomy S/P panniculectomy Family History Family History Father HTN (hypertension) DM (diabetes mellitus) Bladder cancer Prostate cancer Hyperlipidemia Mother No problems noted. Brother No problems noted. Sister No problems noted. Son No problems noted. Daughter No problems noted. Social History Social History Housing: House Alcohol intake: never Patient Tobacco Use Status: Never used Tobacco Use of substances other than those prescribed or required for medical reasons: No Advance Directives: No Advance Directives Information Provided: Yes service: No Current occupational status: disabled Physical Exam Vital Signs: Vital Signs: Last Vital Signs Temp 97.4 F 11/04/20 23:27 Pulse 84 11/04/20 23:27 Resp 17 11/04/20 23:27 BP 142/73 H 11/04/20 23:27 Pulse Ox 99 11/04/20 23:27 Body Mass Index 35.2 Const: General: no acute distress and lethargic Orientation/consciousness: patient oriented x3 and lethargic Limitations: no limitations HENMT: Head: Yes normal to inspection Ears: hearing grossly normal bilaterally General nose exam: Normal external nose present Face and sinus: Yes normal facial exam Eyes: General: appearance normal, both eyes and all related structures EOM: EOMs intact bilaterally Direct Ophthalmoscopy: normal light reflex Neck: Neck: Yes normal visual inspection and Yes no meningeal signs Resp: Effort & Inspection: normal respiratory effort Auscultation: clear to auscultation bilaterally and no wheezes Cardio: Rate: regular rate Heart sounds: S1 normal heart sound present and S2 normal heart sound present GI: Inspection: Yes normal to inspection Palpation (GI): Soft to palpation, nontender, no guarding and not rigid Skin: Rashes: no rashes Wounds: no wounds Neuro: Other: lethargic arousible to verbal and tactile stimuli General: patient oriented x3 and no meningeal signs Extrem: General: Yes normal to inspection Psych: Affect: Sad affect present and Indifferent affect present Course Course Course Narrative: -1813--no leukocytosis. H&H stable elevated, AST chronically elevated, labs otherwise unremarkable -tox screen positive for benzos, lithium level low. -UA negative XR chest 1V IMPRESSION: Question small left perihilar infiltrate or atelectasis. >> no leukocytosis or cough. Will treat with Azithromycin empirically however lower concern for infiltrate -Section 12 signed and in patient's chart. 1904--on re-evaluation patient is awake and alert, sitting in recliner. In no apparent distress. at bedside -head CT unremarkable. Patient awake and alert, ambulating steadily in the ED. Moved to Behavioral Health POD. Physician observation initiated pending care team eval and anticipated inpatient bed search -0200--ED care transferred to Dr. Schreiber pending care team evaluation and anticipated inpatient bed search MDM - Overdose MDM Narrative Medical decision making narrative: 60-year-old female with past medical history ED, anemia, anxiety, depression, bipolar, GERD, hyperlipidemia, PTSD, prior substance abuse, presenting to the ED in for unknown overdose on Soma, Valium, and Ativan. On exam VSS, NAD, lethargic, arousable to verbal/tactile stimuli, not interactive with exam, no signs of trauma. Concern for intentional OD/substance abuse. Unknown fall/trauma history -Per patient's prescription fill history she filled Valium 2mg 90 pills on 10/28, Soma 350mg 120 pills on 11/01, Ativan 1mg 30 pills on 10/30, Oxycodone 10mg 84 pills on 10/17, and Oxycodone 5mg pills 180 tabs on 10/20. EKG showing prolonged QTc at 497 Spoke to poison full. Recommended keeping potassium greater than 4, magnesium greater than 2 and watching for increased drowsiness, hypotension, cholinergic/3rd 20 in syndrome Plan: EKG, labs, head CT, CXR, IVF, 1:1, care team eval, anticipated admission Medical Records Attestation: I reviewed the patient's medical records. Lab Data Attestation: I reviewed the patient's lab results. Result diagrams: 11/04/20 16:53 11/04/20 16:53 Labs: Lab Results 11/04/20 11/04/20 11/04/20 Range/Units 16:50 16:53 16:53 WBC 7.0 (4.8-10.8) X10*3/uL RBC 3.75 L (4.20-5.50) X10*6/uL Hgb 11.1 L (12.0-16.0) g/dl Hct 33.8 L (37-47) % MCV 90.1 (80-98) fL MCH 29.6 (27.0-33.0) pg MCHC 32.8 (31.0-35.0) g/dl RDW 13.1 (11.0-16.0) % Plt Count 282 (160-400) X10*3/uL MPV 9.5 (9.4-12.3) fL Immature Gran % (Auto) 0.4 (0.0-0.4) % Neut % (Auto) 74.9 H (45-73) % Lymph % (Auto) 18.4 L (20-40) % [place] % (Auto) 5.6 (2-11) % Eos % (Auto) 0.6 (0-4) % Baso % (Auto) 0.1 (0-2) % Lymph # (Auto) 1.3 (1.2-4.9) X10*3/uL [place] # (Auto) 0.4 (0.1-1.2) X10*3/uL Eos # (Auto) 0.0 (0.0-0.4) X10*3/uL Baso # (Auto) 0.0 (0.0-0.2) X10*3/uL Abs Immat Gran (auto) 0.03 (0.00-0.03) X10*3/uL Absolute Neuts (auto) 5.2 (2.0-8.3) X10*3/uL Absolute Nucleated RBC 0.000 (0.0-0.012) X10*3/uL Nucleated RBC % (auto) 0.0 (0.0-0.2) /100WBC Sodium 141 (135-145) mmol/L Potassium 4.1 (3.3-5.1) mmol/L Chloride 109 H (96-108) mmol/L Carbon Dioxide 25 (22-29) mmol/L Anion Gap 11 L (12-20) BUN 6 L D (9-16) mg/dL Creatinine 0.67 (0.5-1.4) mg/dL Estim Creat Clear Calc 115.3 Estimated GFR > 60 Random Glucose 126 H (60-115) mg/dL Calcium 9.0 D (8.4-10.2) mg/dL Magnesium 2.1 (1.6-2.6) mg/dL Total Bilirubin 0.5 (0.0-1.0) mg/dL Direct Bilirubin 0.2 (0.0-0.5) mg/dL AST 47 H (5-31) U/L ALT 20 (0-31) U/L Alkaline Phosphatase 83 (39-117) U/L Total Protein 5.9 L (6.5-8.0) g/dL Albumin 3.6 (3.5-5.0) g/dL Lipase 16 (8-78) U/L Urine Color Urine Appearance Urine pH (5.0-8.0) Ur Specific [place] (1.005-1.025) Urine Protein (NEG-TRACE) MG/DL Urine Glucose (UA) (NEG) MG/DL Urine Ketones (NEG) MG/DL Urine Blood (NEG) Urine Nitrite (NEG) Ur Leukocyte Esterase (NEG) Urine RBC (0) /HPF Urine WBC (0-4) /HPF Ur Squamous Epith Cells /LPF Ur Renal Epithelial Cell /LPF Urine Bacteria /LPF Urine Mucus /LPF Salicylates < 5.0 L (15-30) mg/dL Urine Opiates Screen (Not Detect) Urine Fentanyl Screen (Not Detect) Acetaminophen < 1 (<30) mcg/mL Ur Barbiturates Screen (Not Detect) Ur Phencyclidine Scrn (Not Detect) Ur Amphetamines Screen (Not Detect) U Benzodiazepines Scrn (Not Detect) [place] (0.60-1.20) mmol/L Urine Cocaine Screen (Not Detect) U Marijuana (THC) Screen (Not Detect) Ethyl Alcohol mg/dL Acetone, Qual Negative (Negative) COVID-19 (WILLOW) Negative (Negative) COVID-19 Clin Com See Note 11/04/20 11/04/20 11/04/20 Range/Units 16:54 16:54 16:59 WBC (4.8-10.8) X10*3/uL RBC (4.20-5.50) X10*6/uL Hgb (12.0-16.0) g/dl Hct (37-47) % MCV (80-98) fL MCH (27.0-33.0) pg MCHC (31.0-35.0) g/dl RDW (11.0-16.0) % Plt Count (160-400) X10*3/uL MPV (9.4-12.3) fL Immature Gran % (Auto) (0.0-0.4) % Neut % (Auto) (45-73) % Lymph % (Auto) (20-40) % [place] % (Auto) (2-11) % Eos % (Auto) (0-4) % Baso % (Auto) (0-2) % Lymph # (Auto) (1.2-4.9) X10*3/uL [place] # (Auto) (0.1-1.2) X10*3/uL Eos # (Auto) (0.0-0.4) X10*3/uL Baso # (Auto) (0.0-0.2) X10*3/uL Abs Immat Gran (auto) (0.00-0.03) X10*3/uL Absolute Neuts (auto) (2.0-8.3) X10*3/uL Absolute Nucleated RBC (0.0-0.012) X10*3/uL Nucleated RBC % (auto) (0.0-0.2) /100WBC Sodium (135-145) mmol/L Potassium (3.3-5.1) mmol/L Chloride (96-108) mmol/L Carbon Dioxide (22-29) mmol/L Anion Gap (12-20) BUN (9-16) mg/dL Creatinine (0.5-1.4) mg/dL Estim Creat Clear Calc Estimated GFR Random Glucose (60-115) mg/dL Calcium (8.4-10.2) mg/dL Magnesium (1.6-2.6) mg/dL Total Bilirubin (0.0-1.0) mg/dL Direct Bilirubin (0.0-0.5) mg/dL AST (5-31) U/L ALT (0-31) U/L Alkaline Phosphatase (39-117) U/L Total Protein (6.5-8.0) g/dL Albumin (3.5-5.0) g/dL Lipase (8-78) U/L Urine Color YELLOW Urine Appearance CLEAR Urine pH 6.5 (5.0-8.0) Ur Specific [place] <= 1.005 (1.005-1.025) Urine Protein NEG (NEG-TRACE) MG/DL Urine Glucose (UA) NEG (NEG) MG/DL Urine Ketones NEG (NEG) MG/DL Urine Blood NEG (NEG) Urine Nitrite NEG (NEG) Ur Leukocyte Esterase 1+ H (NEG) Urine RBC 0-2 (0) /HPF Urine WBC 1-4 (0-4) /HPF Ur Squamous Epith Cells TRACE /LPF Ur Renal Epithelial Cell TRACE /LPF Urine Bacteria 1+ /LPF Urine Mucus TRACE /LPF Salicylates (15-30) mg/dL Urine Opiates Screen (Not Detect) Urine Fentanyl Screen (Not Detect) Acetaminophen (<30) mcg/mL Ur Barbiturates Screen (Not Detect) Ur Phencyclidine Scrn (Not Detect) Ur Amphetamines Screen (Not Detect) U Benzodiazepines Scrn (Not Detect) [place] 0.13 L (0.60-1.20) mmol/L Urine Cocaine Screen (Not Detect) U Marijuana (THC) Screen (Not Detect) Ethyl Alcohol < 10 mg/dL Acetone, Qual (Negative) COVID-19 (WILLOW) (Negative) COVID-19 Clin Com 11/04/20 Range/Units 16:59 WBC (4.8-10.8) X10*3/uL RBC (4.20-5.50) X10*6/uL Hgb (12.0-16.0) g/dl Hct (37-47) % MCV (80-98) fL MCH (27.0-33.0) pg MCHC (31.0-35.0) g/dl RDW (11.0-16.0) % Plt Count (160-400) X10*3/uL MPV (9.4-12.3) fL Immature Gran % (Auto) (0.0-0.4) % Neut % (Auto) (45-73) % Lymph % (Auto) (20-40) % [place] % (Auto) (2-11) % Eos % (Auto) (0-4) % Baso % (Auto) (0-2) % Lymph # (Auto) (1.2-4.9) X10*3/uL [place] # (Auto) (0.1-1.2) X10*3/uL Eos # (Auto) (0.0-0.4) X10*3/uL Baso # (Auto) (0.0-0.2) X10*3/uL Abs Immat Gran (auto) (0.00-0.03) X10*3/uL Absolute Neuts (auto) (2.0-8.3) X10*3/uL Absolute Nucleated RBC (0.0-0.012) X10*3/uL Nucleated RBC % (auto) (0.0-0.2) /100WBC Sodium (135-145) mmol/L Potassium (3.3-5.1) mmol/L Chloride (96-108) mmol/L Carbon Dioxide (22-29) mmol/L Anion Gap (12-20) BUN (9-16) mg/dL Creatinine (0.5-1.4) mg/dL Estim Creat Clear Calc Estimated GFR Random Glucose (60-115) mg/dL Calcium (8.4-10.2) mg/dL Magnesium (1.6-2.6) mg/dL Total Bilirubin (0.0-1.0) mg/dL Direct Bilirubin (0.0-0.5) mg/dL AST (5-31) U/L ALT (0-31) U/L Alkaline Phosphatase (39-117) U/L Total Protein (6.5-8.0) g/dL Albumin (3.5-5.0) g/dL Lipase (8-78) U/L Urine Color Urine Appearance Urine pH (5.0-8.0) Ur Specific [place] (1.005-1.025) Urine Protein (NEG-TRACE) MG/DL Urine Glucose (UA) (NEG) MG/DL Urine Ketones (NEG) MG/DL Urine Blood (NEG) Urine Nitrite (NEG) Ur Leukocyte Esterase (NEG) Urine RBC (0) /HPF Urine WBC (0-4) /HPF Ur Squamous Epith Cells /LPF Ur Renal Epithelial Cell /LPF Urine Bacteria /LPF Urine Mucus /LPF Salicylates (15-30) mg/dL Urine Opiates Screen Not Detected (Not Detect) Urine Fentanyl Screen Not Detected (Not Detect) Acetaminophen (<30) mcg/mL Ur Barbiturates Screen Not Detected (Not Detect) Ur Phencyclidine Scrn Not Detected (Not Detect) Ur Amphetamines Screen Not Detected (Not Detect) U Benzodiazepines Scrn POSITIVE H (Not Detect) [place] (0.60-1.20) mmol/L Urine Cocaine Screen Not Detected (Not Detect) U Marijuana (THC) Screen Not Detected (Not Detect) Ethyl Alcohol mg/dL Acetone, Qual (Negative) COVID-19 (WILLOW) (Negative) COVID-19 Clin Com ECG Data Attestation: I personally reviewed and interpreted this ECG as follows: ECG interpretation date: 11/04/20 ECG interpretation time: 16:18 Interpretation: EKG NSR rate 74, QTc 497, no STEMI Discharge Plan Discharge Clinical Impression: Overdose Qualifiers: Encounter type: initial encounter Injury intent: intentional self-harm Qualified Code(s): T50.902A - Poisoning by unspecified drugs, medicaments and biological substances, intentional self-harm, initial encounter Prescriptions: No Action ascorbic acid (vitamin C) [Vitamin C] 500 mg tablet 1 tab PO DAILY RF: 0 pantoprazole 40 mg tablet,delayed release (DR/EC) 1 tab PO DAILY RF: 0 thyroid (pork) [TRANSFER CONTROLLER Thyroid] 15 mg tablet 1 tab PO BID RF: 0 thyroid (pork) [[place] Thyroid] 30 mg tablet 1 tab PO BID RF: 0 Latuda 20 mg tablet 1 tab PO DAILY RF: 0 cyanocobalamin (vitamin B-12) [Cyanacobalamin] 1,000 mcg/mL Solution 1,000 mcg IM QMONTH RF: 0 carisoprodol 350 mg tablet 1 tab PO QID RF: 0 lithium carbonate 300 mg tablet extended release 2 tab PO BEDTIME RF: 0 trazodone 100 mg Tablet 100 mg PO BEDTIME PRN (Reason: Anxiety) RF: 0
[2020-11-04] MEDS: 0.9 % Sodium Chloride 1,000 ML 999 ML IVCONT (16:45)
[2020-11-04 16:59] LABS: MANUAL DIFF FLAG NO
[2020-11-04 17:00] LABS: Basophils Percent Auto 0.1 % (0-2); Eosinophils Percent Auto 0.6 % (0-4); Hematocrit 33.8 % (37-47); Hemoglobin 11.1 g/dl (12.0-16.0); Imm Gran Abs Auto 0.03 X10*3/uL (0.00-0.03); Imm Gran Pct Auto 0.4 % (0.0-0.4); Lymphocytes Absolute Auto 1.3 X10*3/uL (1.2-4.9); Lymphocytes Percent Auto 18.4 % (20-40); Mean Corpuscular HGB Conc 32.8 g/dl (31.0-35.0); Mean Corpuscular Hemoglobin 29.6 pg (27.0-33.0); Mean Corpuscular Volume 90.1 fL (80-98); Mean Platelet Volume 9.5 fL (9.4-12.3); Monocytes Absolute Auto 0.4 X10*3/uL (0.1-1.2); Monocytes Percent Auto 5.6 % (2-11); Neutrophils Absolute Auto 5.2 X10*3/uL (2.0-8.3); Neutrophils Percent Auto 74.9 % (45-73); Platelet Count 282 X10*3/uL (160-400); Red Blood Count 3.75 X10*6/uL (4.20-5.50); Red Cell Distribution Width 13.1 % (11.0-16.0)
[2020-11-04 17:07] LABS: Lithium 0.13 mmol/L (0.60-1.20)
[2020-11-04 17:07] LABS: Appearance Urine CLEAR; Color Urine YELLOW; Glucose Urine UA NEG (NEG); Leukocyte Esterase Urine 1+ (NEG); Nitrite Urine NEG (NEG); PH 6.5 (5.0-8.0); Specific Gravity - Urine <= 1.005 (1.005-1.025); UACC Culture Trigger YES; Urine Blood NEG (NEG); Urine Ketones NEG (NEG); Urine Protein NEG (NEG-TRACE)
[2020-11-04 17:11] LABS: Ethanol < 10 mg/dL
[2020-11-04 17:16] LABS: Acetaminophen LAB < 1 mcg/mL (<30); Alanine Aminotransferase 20 U/L (0-31); Albumin Level 3.6 g/dL (3.5-5.0); Alkaline Phosphatase 83 U/L (39-117); Anion Gap 11 (12-20); Aspartate Amino Transferase 47 U/L (5-31); Bilirubin Direct 0.2 mg/dL (0.0-0.5); Bilirubin Total 0.5 mg/dL (0.0-1.0); Blood Urea Nitrogen 6 mg/dL (9-16); Carbon Dioxide 25 mmol/L (22-29); Chloride 109 mmol/L (96-108); Creatinine Clr Calc Pharmacy 115.3; Estimated Glomerular Filt Rate > 60; Glucose Random 126 mg/dL (60-115); Lipase 16 U/L (8-78); Magnesium 2.1 mg/dL (1.6-2.6); Potassium 4.1 mmol/L (3.3-5.1); Salicylate < 5.0 mg/dL (15-30); Sodium 141 mmol/L (135-145); Total Protein 5.9 g/dL (6.5-8.0)
--- NOTE | 2020-11-04 17:23 | PC.NURSE ---
pt slurring her words, reporting abdominal pain and requesting pain medications at this time. pt placed on a 1:1 and changed into [facility] with belongings locked up.
[2020-11-04 17:26] LABS: Amphetamine Screen Urine Not Detected (Not Detect); Barbiturates, Urine Not Detected (Not Detect); Benzodiazepines Screen Urine POSITIVE (Not Detect); Cannabinoid Screen Urine Not Detected (Not Detect); Cocaine Screen Urine Not Detected (Not Detect); Fentanyl, urine Not Detected (Not Detect); Opiate Screen Urine Not Detected (Not Detect); Phencyclidine Screen Urine Not Detected (Not Detect)
[2020-11-04 17:33] LABS: COVID-19 Test Negative (Negative)
[2020-11-04 17:50] LABS: RBC Urine 0-2 /HPF (0); Squamous Epithelial Cell Urine TRACE /LPF
[2020-11-04 17:51] LABS: Bacteria Urine 1+ /LPF; Mucus Urine TRACE /LPF; Renal Epithelial Cells Urine TRACE /LPF
--- NOTE | 2020-11-04 17:52 | PC.NURSE ---
steady on feet to BR. MHT remains just outside door. Pt has recliner for when she returns to bed. skin pale, warm, dry. speech is coherent.
[2020-11-04 17:56] VITALS: PULSE 69; RESP 17; TEMP 36.6; O2SAT 100
[2020-11-04 19:00] VITALS: PULSE 72; RESP 16
[2020-11-04 19:05] LABS: Acetone, serum QL Negative (Negative)
[2020-11-04] MEDS: Azithromycin 500 MG TABLET PO (19:12)
--- NOTE | 2020-11-04 19:21 | PC.NURSE ---
pt placed on a section 12 and informed of this. t/w spoke with CARE team, plan to continue to monitor pt for adverse reactions following her overdose and to speak with the pt in the AM.
--- NOTE | 2020-11-04 19:43 | MHC.CARE ---
Plan for CARE Team assessment when medically cleared. Section 12 placed in Pts chart.
--- NOTE | 2020-11-04 20:24 | ECG_ITS ---
Test Reason : OD Blood Pressure : / mmHG Vent. Rate : 074 BPM Atrial Rate : 074 BPM P-R Int : 158 ms QRS Dur : 096 ms QT Int : 448 ms P-R-T Axes : 040 020 015 degrees QTc Int : 497 ms Normal sinus rhythm Prolonged QT Abnormal ECG When compared with ECG of 01-MAY-2020 14:18, No significant change was found Referred By: Coreen Maynard Electronically Signed By:MIGUELINA MO
[2020-11-04] MEDS: traZODone HCL 100 MG TABLET PO (21:34)
[2020-11-04] MEDS: Lithium Carbonate ER 300 MG TABLET.ER 600 MG PO (21:34)
--- NOTE | 2020-11-04 21:48 | PC.NURSE ---
Patient just got transferred from Main ED, cleared by poison control, independent ambulation, mood pleasant, behavior in good control, no skin issues, patient will be evaluated by care team in the morning, patient was sectioned for intentional overdose by care team, compliant with night time medication, will continue to monitor.
[2020-11-04 23:24] VITALS: BP 142/73; PULSE 84
[2020-11-04] MEDS: cloNIDine HCL 0.1 MG TABLET PO (23:24)
[2020-11-04 23:27] VITALS: BP 142/73; PULSE 84; RESP 17; TEMP 36.3; O2SAT 99
--- NOTE | 2020-11-05 06:11 | PC.NURSE ---
Patient is currently in bed appears sleeping, patient was up whole night, asking for medication, compliant with her night time medication, behavior appropriate, appetite good, patient is on section 12, patient will be assessed by care team in the morning, VSS, thought process coherent, will continue to monitor.
[2020-11-05] MEDS: Omeprazole 20 MG CAPSULE.DR PO (06:51)
[2020-11-05 07:42] VITALS: BP 127/67; PULSE 80; TEMP 36.3; O2SAT 100
[2020-11-05] MEDS: Thyroid,Pork 30 MG TABLET PO (08:20)
[2020-11-05] MEDS: Lurasidone HCl 20 MG TABLET PO (08:20)
[2020-11-05] MEDS: Thyroid,Pork 30 MG TABLET 15 MG PO (08:20)
[2020-11-05] MEDS: Loperamide HCl 2 MG CAPSULE 4 MG PO (08:45)
[2020-11-05] MEDS: Ascorbic Acid 500 MG TABLET PO (08:45)
--- NOTE | 2020-11-05 10:19 | PC.NURSE ---
Carlene from care team meeting with patient.
--- NOTE | 2020-11-05 13:30 | MHC.CARE ---
Addendum entered by Kary Joshi [facility] 11/05/20 15:13: CARE Team met with patient in [facility] this morning and discussed her overdose yesterday; she was alert, oriented and easily engaged with the interview process. Patient emphatically denied this was a suicide attempt, maintained she took two Soma to nap, I have a happy life and would never kill myself. Denied history of gestures, attempts, thoughts or planning to end her life. She explained that she has been suffering from back, shoulder and leg pain for the last 7 years and has tried many different medications to manage her pain and anxiety with varying success. Patient minimized her use of pain and antianxiety medications, said she only takes as prescribed but it appears she does overuse and is dependent. Original Note: Patient carries a diagnosis of Bipolar D/O, said she [place] daily though her level was 0.13. She feels her bipolar symptoms are well managed but her depression and anxiety are heightened due to life stressors. Her mother is had a heart attack five years ago and she is the primary forensic analyst and mother?s health is declining quickly?that is why patient?s sister is here from [place]. 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 She does not have an individual therapist, was for many years and considers her psychiatrist of 30 years to be a good listener who provides family service counselor. He prescribes all of her medication. Spoke to patient?s who is very aware of the situation with his ?s overuse of medication, has the bottles locked and gives her daily doses. However, he had to go to [place] for two weeks to care for his sick mother and did not make arrangements for anyone else to help and also did not realize that his had refills of Valium and Ativan which she picked up on 10/28 and respectively and are now gone. He said it appears that patient took 60 Soma in 4 days, has two prescriptions for 5 and 10 mg Oxycodone, unknown how many pills are left, filled on 10/17 and 10/20. Patient?s reported that his went to a rehab in [place] several years ago and again a year ago went to [facility] and was doing well and managing her pain with Tylenol only for seven months. He does not believe his was trying to end her life or intentionally harm self but feels she takes too much medication and is dependent. He is comfortable with patient discharging home. The recommendations were shared with patient?s . Patient was given information about [facility] here at [facility], PHP here (intakes available next week) and also referred to the Recovery Team who met with patient in the ED. Discussed various types of self-help groups available in the community and online, gave CARE Team and [facility] information as well. Discussed disposition with RN, ED provider and supervisory lifeguard. Patient provided with Yu hansen.
--- NOTE | 2020-11-05 16:12 | MHC.RECOVRN ---
T/w met with pt briefly in 4 prior to pt discharging. Pt reports extensive list of medications, including oxycodone prescribed by psychiatrist Dr. Parth Montejo. Pt reports having been a pt of his for 30 years. Pt reports taking medications as prescribed, denies seeking medication or substances other than those prescribed/in addition to those prescribed, denies medications/opiates interfering with daily life. Pt educated regarding substance use disorders and recovery supports and options. Pt provided with t/w contact information if she would like to discuss further or has any questions. Case discussed with CARE Team as well as Michelle Ross APRN.
== END 2020-11-05 12:23 | disposition home or self-care (01) ==
PROVIDERS: Physician Assistant; Emergency Provider Student in an Organized Health Care Education/Training Program; PCP Internal Medicine
DX: T42.4X2A Poisoning by benzodiazepines, intentional self-harm, initial encounter (principal); T42.4X1A Poisoning by benzodiazepines, accidental (unintentional), initial encounter; R51.9 Headache, unspecified; F33.1 Major depressive disorder, recurrent, moderate; Y92.009 Unspecified place in unspecified non-institutional (private) residence as the place of occurrence of the external cause; R45.851 Suicidal ideations; Z79.899 Other long term (current) drug therapy
CPT/HCPCS: 36415; 70450; 71045; 80048; 80076; 80143; 80178; 80179; 80307; 81001; 82009; 82077; 83690; 83735; 85025; 87086; 87088; 87186; 87635; 93005; 96360; 99285

== ENCOUNTER 2020-11-06 21:09 | Inpatient (IN) | payer MEDICARE, OTHER, SELFPAY ==
[2020-11-06 21:50] VITALS: BP 114/90; PULSE 70; RESP 20; TEMP 36.6; O2SAT 98; BMI 33.6
[2020-11-06 22:27] LABS: Appearance Urine CLEAR; Color Urine YELLOW; Glucose Urine UA NEG (NEG); Leukocyte Esterase Urine 1+ (NEG); Nitrite Urine NEG (NEG); Specific Gravity - Urine <= 1.005 (1.005-1.025); UACC Culture Trigger YES; Urine Blood NEG (NEG); Urine Ketones NEG (NEG); Urine Protein NEG (NEG-TRACE)
[2020-11-06 22:32] LABS: Bacteria Urine TRACE /LPF; RBC Urine 0 /HPF (0); UACC CULT YES; WBC Urine 0-2 /HPF (0-4)
[2020-11-06 22:33] LABS: Squamous Epithelial Cell Urine TRACE /LPF
[2020-11-06] MEDS: traZODone HCL 100 MG TABLET PO (22:50)
[2020-11-06] MEDS: oxyCODONE HCl Immed Release 5 MG TABLET 10 MG PO (22:50)
[2020-11-06 22:53] LABS: COVID-19 Test Negative (Negative); IDNOW Serial# 9DD0AD1C
[2020-11-06 23:14] LABS: Amphetamine Screen Urine Not Detected (Not Detect); Barbiturates, Urine Not Detected (Not Detect); Cannabinoid Screen Urine Not Detected (Not Detect); Cocaine Screen Urine Not Detected (Not Detect); Fentanyl, urine POSITIVE (Not Detect); Opiate Screen Urine Not Detected (Not Detect); Phencyclidine Screen Urine Not Detected (Not Detect)
[2020-11-06 23:28] LABS: Benzodiazepines Screen Urine POSITIVE (Not Detect)
--- NOTE | 2020-11-06 23:44 | ED.ANXIETY ---
HPI - Anxiety General Chief Complaint: Anxiety Stated Complaint: crisis Time Seen by Provider: 11/06/20 22:21 Source: patient Mode of arrival: ambulatory Limitations: no limitations History of Present Illness HPI narrative: Patient seen here 2 days ago for overdose taking her Soma trazodone Valium Ativan and oxycodone now she does not have any medication at home complaining of increased anxiety and chronic pain. No delusions no hallucinations no suicidal ideation no depression Related Data Home Medications Medication Instructions Recorded Confirmed carisoprodol 350 mg tablet 1 tab PO QID 10/13/20 11/07/20 lithium carbonate 300 mg 2 tab PO BEDTIME 10/13/20 11/07/20 tablet,extended release trazodone 100 mg tablet 100 mg PO BEDTIME PRN 10/13/20 11/07/20 ascorbic acid (vitamin C) 500 mg 1 tab PO DAILY 11/04/20 11/07/20 tablet (Vitamin C) cyanocobalamin (vitamin B-12) 1,000 mcg IM QMONTH 11/04/20 11/07/20 1,000 mcg/mL injection solution lurasidone 20 mg tablet (Latuda) 1 tab PO DAILY 11/04/20 11/07/20 pantoprazole 40 mg tablet,delayed 1 tab PO DAILY 11/04/20 11/07/20 release thyroid (pork) 30 mg tablet 1 tab PO BID 11/04/20 11/07/20 ([place] Thyroid) Allergies Allergy/AdvReac Type Severity Reaction Status Date / Time amoxicillin [Amoxicillin] Allergy Severe HIVES, Verified 11/06/20 21:59 swelling Review of Systems Review of Systems: Yes all other systems are reviewed and are negative PMFSH Past Medical History Medical History ADHD Anemia Anxiety and depression Back pain Bipolar disorder DDD (degenerative disc disease) GERD (gastroesophageal reflux disease) Hx of small bowel obstruction Hypercholesterolemia Iron deficiency anemia Lumbar disc herniation Obesity Osteoarthritis PTSD (post-traumatic stress disorder) Right rotator cuff tear Surgical History History of adjustable gastric banding History of removal of laparoscopic gastric banding device History of Theo-en-Y gastric bypass Hx laparoscopic cholecystectomy Hx of section Hx of laminectomy Hx of laparoscopic gastric banding Hx of tonsillectomy S/P panniculectomy Family History Family History Father HTN (hypertension) DM (diabetes mellitus) Bladder cancer Prostate cancer Hyperlipidemia Mother No problems noted. Brother No problems noted. Sister No problems noted. Son No problems noted. Daughter No problems noted. Social History Social History Housing: House Alcohol intake: never Patient Tobacco Use Status: Never used Tobacco Advance Directives: No Advance Directives Information Provided: No Patient : No service: No Current occupational status: disabled Physical Exam Vital Signs: Vital Signs: Last Vital Signs Temp 97.8 F 11/06/20 21:50 Pulse 70 11/06/20 21:50 Resp 20 11/06/20 21:50 BP 114/90 H 11/06/20 21:50 Pulse Ox 98 11/06/20 21:50 Body Mass Index 33.6 Appearance: Alert. Oriented X3. No acute distress. Very anxious Eyes: PERRLA, No Nystagmus ENT: Pharynx normal. Oral Mucosa moist Neck: Normal inspection. Neck supple. CVS: Normal heart rate and rhythm. Pulses normal. Respiratory: No respiratory distress. Equal air entry bilateral, no wheezing/rales/rhonchi Abdomen: Soft and nontender. Bowel sounds are present, no mass palpable, no CVA tenderness Skin: Skin warm and dry. Normal skin color. Normal skin turgor. Extremities: No lower extremity edema. No calf tenderness Psych: Anxious, denies any depression or suicidal ideation or hallucinations Neuro: Oriented X 3. No motor deficit. No sensory deficit.No cerebellar signs , cranial nerves II-XII intact MDM - Anxiety MDM Narrative Medical decision making narrative: Patient with severe anxiety will get care team consulted Medical Records Attestation: I reviewed the patient's medical records. Lab Data Attestation: I reviewed the patient's lab results. Labs: Lab Results 11/06/20 11/06/20 11/06/20 Range/Units 22:16 22:16 22:16 Urine Color YELLOW Urine Appearance CLEAR Urine pH 6.0 (5.0-8.0) Ur Specific [place] <= 1.005 (1.005-1.025) Urine Protein NEG (NEG-TRACE) MG/DL Urine Glucose (UA) NEG (NEG) MG/DL Urine Ketones NEG (NEG) MG/DL Urine Blood NEG (NEG) Urine Nitrite NEG (NEG) Ur Leukocyte Esterase 1+ H (NEG) Urine RBC 0 (0) /HPF Urine WBC 0-2 (0-4) /HPF Ur Squamous Epith Cells TRACE /LPF Urine Bacteria TRACE /LPF Urine Opiates Screen Not Detected (Not Detect) Urine Fentanyl Screen POSITIVE H (Not Detect) Ur Barbiturates Screen Not Detected (Not Detect) Ur Phencyclidine Scrn Not Detected (Not Detect) Ur Amphetamines Screen Not Detected (Not Detect) U Benzodiazepines Scrn POSITIVE H (Not Detect) Urine Cocaine Screen Not Detected (Not Detect) U Marijuana (THC) Screen Not Detected (Not Detect) COVID-19 ([facility]) Negative (Negative) COVID-19 Clin Com See Note Discharge Plan Discharge Clinical Impression: Anxiety and depression Prescriptions: No Action ascorbic acid (vitamin C) [Vitamin C] 500 mg tablet 1 tab PO DAILY RF: 0 pantoprazole 40 mg tablet,delayed release (DR/EC) 1 tab PO DAILY RF: 0 thyroid (pork) [[place] Thyroid] 30 mg tablet 1 tab PO BID RF: 0 Latuda 20 mg tablet 1 tab PO DAILY RF: 0 cyanocobalamin (vitamin B-12) [Cyanacobalamin] 1,000 mcg/mL Solution 1,000 mcg IM QMONTH RF: 0 carisoprodol 350 mg tablet 1 tab PO QID RF: 0 lithium carbonate 300 mg tablet extended release 2 tab PO BEDTIME RF: 0 trazodone 100 mg Tablet 100 mg PO BEDTIME PRN (Reason: Anxiety) RF: 0
--- NOTE | 2020-11-07 | ECG_ITS ---
Test Reason : MED CLEARANCE Blood Pressure : / mmHG Vent. Rate : 053 BPM Atrial Rate : 053 BPM P-R Int : 128 ms QRS Dur : 086 ms QT Int : 470 ms P-R-T Axes : -23 029 036 degrees QTc Int : 441 ms Sinus bradycardia Otherwise normal ECG When compared with ECG of 04-NOV-2020 21:38, Vent. rate has decreased BY 32 BPM Nonspecific T wave abnormality no longer evident in Anterior leads QT has shortened Referred By: Vidal Alexander Electronically Signed By:MIGUELINA MO
--- NOTE | 2020-11-07 01:08 | MHC.CARE ---
CARE team attempted to meet with pt however pt was unable to get up. She states that she is extremely tired. T/W contacted her who confirmed stating that pt has not slept for 3-4 days. He states that pt's plan was supposed to call for help tomorrow to go to detox but she came here instead telling her that she needs help. Pt's reports that pt was here two days ago due to an unintentional OD and since she has been home she has been increasingly anxious. He reports she reported to him she wants to go to rehab. He states she had surgery several years ago and became addicted to pills. He shared that 7 years ago she received treatment in [place] and a year ago in [place] and had been doing really well. She improved, however she has been increasingly depressed and anxious lately. He states she is depressed, hx of bipolar, low energy, poor sleep/appetite. 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 He reports that she is fatigued, always tired, doesn't care much about anything and doesn't want to do anything. He states she hasn't wanted to shower. She reportedly hasn't slept in 3-4 days. Pt't advocated for detox or mental health treatment. He denies having any imminent safety concerns and shares that she will not harm herself but her depression is worsening. Once pt is able to be interviewed CARE team will meet with pt to determine appropriate level of care.
--- NOTE | 2020-11-07 06:31 | PC.NURSE ---
Patient slept through the night, out room x 2 for bathroom use and back, no distress observed/reported, medication compliant, this time patient seems seeking for help, behavior appropriate, patient will be seen by care team the morning, will continue to monitor.
[2020-11-07 07:44] VITALS: BP 133/70; PULSE 72; TEMP 36.7; O2SAT 99
[2020-11-07 09:47] LABS: MANUAL DIFF FLAG NO
[2020-11-07 09:49] LABS: Basophils Percent Auto 0.5 % (0-2); Eosinophils Absolute Auto 0.2 X10*3/uL (0.0-0.4); Eosinophils Percent Auto 3.7 % (0-4); Hematocrit 39.2 % (37-47); Hemoglobin 12.2 g/dl (12.0-16.0); Imm Gran Abs Auto 0.03 X10*3/uL (0.00-0.03); Imm Gran Pct Auto 0.5 % (0.0-0.4); Lymphocytes Absolute Auto 2.1 X10*3/uL (1.2-4.9); Lymphocytes Percent Auto 33.3 % (20-40); Mean Corpuscular HGB Conc 31.1 g/dl (31.0-35.0); Mean Corpuscular Hemoglobin 29.2 pg (27.0-33.0); Mean Corpuscular Volume 93.8 fL (80-98); Mean Platelet Volume 9.3 fL (9.4-12.3); Monocytes Absolute Auto 0.5 X10*3/uL (0.1-1.2); Neutrophils Absolute Auto 3.4 X10*3/uL (2.0-8.3); Platelet Count 274 X10*3/uL (160-400); Red Blood Count 4.18 X10*6/uL (4.20-5.50); Red Cell Distribution Width 13.2 % (11.0-16.0); White Blood Count 6.3 X10*3/uL (4.8-10.8)
[2020-11-07 10:15] LABS: Alanine Aminotransferase 16 U/L (0-31); Albumin Level 3.6 g/dL (3.5-5.0); Alkaline Phosphatase 74 U/L (39-117); Anion Gap 13 (12-20); Aspartate Amino Transferase 25 U/L (5-31); Bilirubin Direct < 0.2 mg/dL (0.0-0.5); Bilirubin Total 0.5 mg/dL (0.0-1.0); Blood Urea Nitrogen 9 mg/dL (9-16); Calcium 8.8 mg/dL (8.4-10.2); Carbon Dioxide 23 mmol/L (22-29); Chloride 108 mmol/L (96-108); Creatinine Clr Calc Pharmacy 87.9; Estimated Glomerular Filt Rate > 60; Ethanol < 10 mg/dL; Glucose Random 128 mg/dL (60-115); Potassium 4.1 mmol/L (3.3-5.1); Sodium 140 mmol/L (135-145); Total Protein 5.9 g/dL (6.5-8.0)
[2020-11-07] MEDS: oxyCODONE HCl Immed Release 5 MG TABLET 10 MG PO ×2 (12:49→20:22)
[2020-11-07] MEDS: carisoprodoL 350 MG TABLET PO ×2 (17:22→20:23)
--- NOTE | 2020-11-07 17:33 | PC.NURSE ---
60 year old female admitted from [facility] after taking all her pain and anxiety meds over the course of one week. Pt reports feeling overwhelmed after being responsible for her mom's care for a long time. Pt reports her sister is here to visit and its been too much. 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 Pt remains somaticaly focused and perseverative around medication admin times.
[2020-11-07 18:00] VITALS: BP 138/75; PULSE 70; RESP 18; TEMP 36.7; O2SAT 95
[2020-11-07] MEDS: Lithium Carbonate ER 300 MG TABLET.ER 600 MG PO (20:22)
[2020-11-07] MEDS: Thyroid,Pork 30 MG TABLET PO (20:23)
[2020-11-07] MEDS: traZODone HCL 100 MG TABLET PO (21:51)
[2020-11-07] MEDS: Acetaminophen 325 MG TABLET 650 MG PO (22:03)
[2020-11-08 06:00] VITALS: BP 137/75; PULSE 56; RESP 18; TEMP 36.5; O2SAT 98
--- NOTE | 2020-11-08 08:20 | HO.PSYCHPN ---
Subjective Subjective Date of Service: 11/08/20 Reason For Visit: crisis Diagnostics Vital Signs (24Hr): Vital Signs - 24 hr 11/07/20 18:00 Temperature 98.0 F Pulse Rate 70 Respiratory Rate 18 Blood Pressure 138/75 Pulse Oximetry 95 Body Mass Index 33.6 Labs Results: 11/07/20 09:40 11/07/20 09:40 Labs: Laboratory Results - last 48 hr 11/06/20 11/06/20 11/06/20 22:16 22:16 22:16 WBC RBC Hgb Hct MCV MCH MCHC RDW Plt Count MPV Immature Gran % (Auto) Neut % (Auto) Lymph % (Auto) [place] % (Auto) Eos % (Auto) Baso % (Auto) Lymph # (Auto) [place] # (Auto) Eos # (Auto) Baso # (Auto) Abs Immat Gran (auto) Absolute Neuts (auto) Absolute Nucleated RBC Nucleated RBC % (auto) Sodium Potassium Chloride Carbon Dioxide Anion Gap BUN Creatinine Estim Creat Clear Calc Estimated GFR Random Glucose Calcium Total Bilirubin Direct Bilirubin AST ALT Alkaline Phosphatase Total Protein Albumin Urine Color YELLOW Urine Appearance CLEAR Urine pH 6.0 Ur Specific [place] <= 1.005 Urine Protein NEG Urine Glucose (UA) NEG Urine Ketones NEG Urine Blood NEG Urine Nitrite NEG Ur Leukocyte Esterase 1+ H Urine RBC 0 Urine WBC 0-2 Ur Squamous Epith Cells TRACE Urine Bacteria TRACE Urine Opiates Screen Not Detected Urine Fentanyl Screen POSITIVE H Ur Barbiturates Screen Not Detected Ur Phencyclidine Scrn Not Detected Ur Amphetamines Screen Not Detected U Benzodiazepines Scrn POSITIVE H Urine Cocaine Screen Not Detected U Marijuana (THC) Screen Not Detected Ethyl Alcohol COVID-19 ([facility]) Negative COVID-19 Clin Com See Note 11/07/20 11/07/20 11/07/20 09:40 09:40 09:40 WBC 6.3 RBC 4.18 L Hgb 12.2 Hct 39.2 MCV 93.8 MCH 29.2 MCHC 31.1 RDW 13.2 Plt Count 274 MPV 9.3 L Immature Gran % (Auto) 0.5 H Neut % (Auto) 54.0 Lymph % (Auto) 33.3 [place] % (Auto) 8.0 Eos % (Auto) 3.7 Baso % (Auto) 0.5 Lymph # (Auto) 2.1 [place] # (Auto) 0.5 Eos # (Auto) 0.2 Baso # (Auto) 0.0 Abs Immat Gran (auto) 0.03 Absolute Neuts (auto) 3.4 Absolute Nucleated RBC 0.000 Nucleated RBC % (auto) 0.0 Sodium 140 Potassium 4.1 Chloride 108 Carbon Dioxide 23 Anion Gap 13 BUN 9 Creatinine 0.86 Estim Creat Clear Calc 87.9 Estimated GFR > 60 Random Glucose 128 H Calcium 8.8 Total Bilirubin 0.5 Direct Bilirubin < 0.2 AST 25 D ALT 16 Alkaline Phosphatase 74 Total Protein 5.9 L Albumin 3.6 Urine Color Urine Appearance Urine pH Ur Specific [place] Urine Protein Urine Glucose (UA) Urine Ketones Urine Blood Urine Nitrite Ur Leukocyte Esterase Urine RBC Urine WBC Ur Squamous Epith Cells Urine Bacteria Urine Opiates Screen Urine Fentanyl Screen Ur Barbiturates Screen Ur Phencyclidine Scrn Ur Amphetamines Screen U Benzodiazepines Scrn Urine Cocaine Screen U Marijuana (THC) Screen Ethyl Alcohol < 10 COVID-19 ([facility]) COVID-19 Clin Com Medications Medications Current Medications Acetaminophen (Acetaminophen 325 Mg Tablet) 650 mg PO Q6H PRN PRN Reason: Headache/Pain Mild Scale (1-3) Last Admin: 11/07/20 22:03 Dose: 650 mg Documented by: Al Hydroxide/Mg Hydroxide (Magnesium Hydrox/Alum Hydrox 30 Ml Oral.Susp) 30 ml PO Q6H PRN PRN Reason: Heartburn/Nausea Ascorbic Acid (Ascorbic Acid 500 Mg Tablet) 500 mg PO DAILY [facility] Carisoprodol (Carisoprodol 350 Mg Tablet) 350 mg PO BID [facility] Last Admin: 11/07/20 20:23 Dose: 350 mg Documented by: Cyanocobalamin (Cyanocobalamin (Vitamin B-12) 1,000 Mcg/Ml Vial) 1,000 mcg IM Q28D [facility] Duloxetine HCl (Duloxetine Hcl 30 Mg Capsule.) 30 mg PO DAILY [facility] Hydroxyzine HCl (Hydroxyzine Hcl 25 Mg Tablet) 25 mg PO BEDTIME PRN PRN Reason: Anxiety [employer] Carbonate ([employer] Carbonate Er 300 Mg Tablet.Er) 600 mg PO BEDTIME [facility] Last Admin: 11/07/20 20:22 Dose: 600 mg Documented by: Lurasidone HCl (Lurasidone Hcl 20 Mg Tablet) 20 mg PO DAILY [facility] Magnesium Hydroxide (Milk Of Magnesia 30 Ml Oral.Susp) 30 ml PO DAILY PRN PRN Reason: Constipation Omeprazole (Omeprazole 20 Mg Capsule.) 20 mg PO DAILY@0630 [facility] Oxycodone HCl (Oxycodone Hcl Immed Release 5 Mg Tablet) 10 mg PO TID [facility] Last Admin: 11/07/20 20:22 Dose: 10 mg Documented by: Thyroid (Thyroid,Pork 30 Mg Tablet) 30 mg PO BID [facility] Last Admin: 11/07/20 20:23 Dose: 30 mg Documented by: Trazodone HCl (Trazodone Hcl 100 Mg Tablet) 100 mg PO BEDTIME PRN PRN Reason: Anxiety Last Admin: 11/07/20 21:51 Dose: 100 mg Documented by: Allergies Allergies Allergy/AdvReac Type Severity Reaction Status Date / Time amoxicillin [Amoxicillin] Allergy Severe HIVES, Verified 11/06/20 21:59 swelling Assessment & Plan Greater than 50% of the session was spent on counseling and/or coordination of care
[2020-11-08] MEDS: DULoxetine HCl 30 MG CAPSULE.DR PO (08:23)
[2020-11-08] MEDS: Lurasidone HCl 20 MG TABLET PO (08:23)
[2020-11-08] MEDS: Thyroid,Pork 30 MG TABLET PO ×2 (08:23→20:45)
[2020-11-08] MEDS: carisoprodoL 350 MG TABLET PO ×3 (08:24→20:45)
[2020-11-08] MEDS: Ascorbic Acid 500 MG TABLET PO (08:25)
[2020-11-08] MEDS: oxyCODONE HCl Immed Release 5 MG TABLET 10 MG PO ×3 (08:26→20:45)
[2020-11-08] MEDS: Acetaminophen 325 MG TABLET 650 MG PO (10:33)
[2020-11-08] MEDS: hydrOXYzine HCL 25 MG TABLET PO (12:27)
[2020-11-08] MEDS: traZODone HCL 100 MG TABLET PO (20:45)
[2020-11-08] MEDS: Lithium Carbonate ER 300 MG TABLET.ER 600 MG PO (20:45)
[2020-11-08 20:53] VITALS: BP 134/85; PULSE 80; TEMP 36.6; O2SAT 99
--- NOTE | 2020-11-08 21:08 | P.HPPS_ITS ---
HPI Chief Complaint: crisis Sources of Information: patient interviewed, chart reviewed and crisis/core team assessment reviewed Additional Sources of Information: CARE assesment HPI Subjective Notes: Conditional Voluntary Healthcare Proxy: No Guardianship: No Medical Problems Affecting Mental Status: No Narrative: 60 MWW, Long Hx of mood disorder , pt of Dr Montejo x 30 years. Last year Dx was switched to bipolar. Presents with increased depression/anxiety/H/HW. Reported OD ( inadvertent? ) on 11/14 denied SI. Was Dcd home from ED but returned with above Sx. Today, reports racing thoughts/jumping from topic to topic, POS. FOI. mixed Sx. says Im always like this ... I have ADHD . Hx overuse of pain meds and SEd-Hyp. Notably Opioids Rxed by OP psychiatrist. Hx PTSD : from ACEs while growing up in [place]. Left home age 15.5. No psychotic Sx. No other major syndromes. Past Psychiatric History: Dr Montejo x 30 years. No past hospitalizations. 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 Denies DSH in past. Medical Evaluation Reviewed: Yes [facility] Medical History (Updated 11/09/20 @ 18:00 by Ramez Claudio MD) ADHD Anemia Anxiety and depression Back pain Bipolar disorder DDD (degenerative disc disease) GERD (gastroesophageal reflux disease) Hx of small bowel obstruction Hypercholesterolemia Iron deficiency anemia Lumbar disc herniation Obesity Osteoarthritis PTSD (post-traumatic stress disorder) Right rotator cuff tear Surgical History History of adjustable gastric banding History of removal of laparoscopic gastric banding device History of Theo-en-Y gastric bypass Hx laparoscopic cholecystectomy Hx of section Hx of laminectomy Hx of laparoscopic gastric banding Hx of tonsillectomy S/P panniculectomy Family History: F: ETOH. Others had undiagnosed mental illness. Much abuse/neglect. ACEs+ Social History: Lives with H x 30 years. He is supportive. 2 adult children 22 and 28. 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 Substance History: Denies except overuse of opioids/ sed-hyps Trauma History: As above Diagnostics Vital Signs (24Hr): Vital Signs - 24 hr 11/08/20 06:00 11/08/20 20:53 Temperature 97.7 F 97.8 F Pulse Rate 56 80 Respiratory Rate 18 Blood Pressure 137/75 134/85 Pulse Oximetry 98 99 Body Mass Index 33.6 Labs Results: 11/07/20 09:40 11/07/20 09:40 Labs: Laboratory Results - last 48 hr 11/06/20 11/06/20 11/06/20 22:16 22:16 22:16 WBC RBC Hgb Hct MCV MCH MCHC RDW Plt Count MPV Immature Gran % (Auto) Neut % (Auto) Lymph % (Auto) [place] % (Auto) Eos % (Auto) Baso % (Auto) Lymph # (Auto) [place] # (Auto) Eos # (Auto) Baso # (Auto) Abs Immat Gran (auto) Absolute Neuts (auto) Absolute Nucleated RBC Nucleated RBC % (auto) Sodium Potassium Chloride Carbon Dioxide Anion Gap BUN Creatinine Estim Creat Clear Calc Estimated GFR Random Glucose Calcium Total Bilirubin Direct Bilirubin AST ALT Alkaline Phosphatase Total Protein Albumin Urine Color YELLOW Urine Appearance CLEAR Urine pH 6.0 Ur Specific [place] <= 1.005 Urine Protein NEG Urine Glucose (UA) NEG Urine Ketones NEG Urine Blood NEG Urine Nitrite NEG Ur Leukocyte Esterase 1+ H Urine RBC 0 Urine WBC 0-2 Ur Squamous Epith Cells TRACE Urine Bacteria TRACE Urine Opiates Screen Not Detected Urine Fentanyl Screen POSITIVE H Ur Barbiturates Screen Not Detected Ur Phencyclidine Scrn Not Detected Ur Amphetamines Screen Not Detected U Benzodiazepines Scrn POSITIVE H Urine Cocaine Screen Not Detected U Marijuana (THC) Screen Not Detected Ethyl Alcohol COVID-19 ([facility]) Negative COVID-19 Clin Com See Note 11/07/20 11/07/20 11/07/20 09:40 09:40 09:40 WBC 6.3 RBC 4.18 L Hgb 12.2 Hct 39.2 MCV 93.8 MCH 29.2 MCHC 31.1 RDW 13.2 Plt Count 274 MPV 9.3 L Immature Gran % (Auto) 0.5 H Neut % (Auto) 54.0 Lymph % (Auto) 33.3 [place] % (Auto) 8.0 Eos % (Auto) 3.7 Baso % (Auto) 0.5 Lymph # (Auto) 2.1 [place] # (Auto) 0.5 Eos # (Auto) 0.2 Baso # (Auto) 0.0 Abs Immat Gran (auto) 0.03 Absolute Neuts (auto) 3.4 Absolute Nucleated RBC 0.000 Nucleated RBC % (auto) 0.0 Sodium 140 Potassium 4.1 Chloride 108 Carbon Dioxide 23 Anion Gap 13 BUN 9 Creatinine 0.86 Estim Creat Clear Calc 87.9 Estimated GFR > 60 Random Glucose 128 H Calcium 8.8 Total Bilirubin 0.5 Direct Bilirubin < 0.2 AST 25 D ALT 16 Alkaline Phosphatase 74 Total Protein 5.9 L Albumin 3.6 Urine Color Urine Appearance Urine pH Ur Specific [place] Urine Protein Urine Glucose (UA) Urine Ketones Urine Blood Urine Nitrite Ur Leukocyte Esterase Urine RBC Urine WBC Ur Squamous Epith Cells Urine Bacteria Urine Opiates Screen Urine Fentanyl Screen Ur Barbiturates Screen Ur Phencyclidine Scrn Ur Amphetamines Screen U Benzodiazepines Scrn Urine Cocaine Screen U Marijuana (THC) Screen Ethyl Alcohol < 10 COVID-19 ([facility]) COVID-19 Clin Com Meds/Allergies Meds Home Medications Acetaminophen (Acetaminophen 325 Mg Tablet) 650 mg PO Q6H PRN PRN Reason: Headache/Pain Mild Scale (1-3) Last Admin: 11/08/20 10:33 Dose: 650 mg Documented by: Al Hydroxide/Mg Hydroxide (Magnesium Hydrox/Alum Hydrox 30 Ml Oral.Susp) 30 ml PO Q6H PRN PRN Reason: Heartburn/Nausea Ascorbic Acid (Ascorbic Acid 500 Mg Tablet) 500 mg PO DAILY [facility] Last Admin: 11/09/20 08:15 Dose: 500 mg Documented by: Carisoprodol (Carisoprodol 350 Mg Tablet) 350 mg PO TID [facility] Last Admin: 11/09/20 15:00 Dose: 350 mg Documented by: Cyanocobalamin (Cyanocobalamin (Vitamin B-12) 1,000 Mcg/Ml Vial) 1,000 mcg IM Q28D [facility] Hydroxyzine HCl (Hydroxyzine Hcl 25 Mg Tablet) 25 mg PO Q6H PRN PRN Reason: anxiety/restlessness Last Admin: 11/09/20 17:04 Dose: 25 mg Documented by: [place] Carbonate ([place] Carbonate Er 300 Mg Tablet.Er) 600 mg PO BID [facility] Last Admin: 11/09/20 13:35 Dose: 600 mg Documented by: Lurasidone HCl (Lurasidone Hcl 20 Mg Tablet) 20 mg PO DAILY [facility] Last Admin: 11/09/20 08:14 Dose: 20 mg Documented by: Magnesium Hydroxide (Milk Of Magnesia 30 Ml Oral.Susp) 30 ml PO DAILY PRN PRN Reason: Constipation Omeprazole (Omeprazole 20 Mg Capsule.Dr) 20 mg PO DAILY@0630 [facility] Last Admin: 11/09/20 08:15 Dose: 20 mg Documented by: Oxycodone HCl (Oxycodone Hcl Immed Release 5 Mg Tablet) 10 mg PO TID [facility] Last Admin: 11/09/20 14:59 Dose: 10 mg Documented by: Thyroid (Thyroid,Pork 30 Mg Tablet) 30 mg PO BID [facility] Last Admin: 11/09/20 08:13 Dose: 30 mg Documented by: Trazodone HCl (Trazodone Hcl 100 Mg Tablet) 100 mg PO BEDTIME PRN PRN Reason: Anxiety Last Admin: 11/08/20 20:45 Dose: 100 mg Documented by: Allergies Allergies Allergy/AdvReac Type Severity Reaction Status Date / Time amoxicillin [Amoxicillin] Allergy Severe HIVES, Verified 11/06/20 21:59 swelling Mental Status Exam Mental Status Exam Patient Appearance: Well Grooomed Patient Orientation: Person, Place, Time and Situation Level of Consciousness: Awake Patient Behavior: Appropriate, Talkative and Cooperative Mood Description: Anxious and Labile Affect Description: Anxious Speech Pattern: Pressured Memory Description: Intact Hallucinations: None Delusions: Not Present Thought Process: Intact Thought Content: positive for Flight of Ideas and positive for Circumstantial Depressive Symptoms: Increased Anxiety, Feelings of Worthlessness, Hopelessness and Loss of Energy Abnormal Motor Activity Signs and Symptoms: Agitation Judgement: Poor Assessment & Plan Assessment & Plan (1) Bipolar disorder: Status: Acute Code(s): F31.9 - Bipolar disorder, unspecified Assessment and Plan: 1. Liaise w Dr Montejo. 2. Need to reduce pain meds bc of overuse. 3. Optimize [place]. 4. Increase Latuda. 5. DC CYMBALTA DUE TO RAPID CYCLING> Patient educated on: diagnosis and medication risk/benefits Informed Consent: understands Reason for continued inpatient stay Substantial Risk for: harm to self
[2020-11-09] MEDS: hydrOXYzine HCL 25 MG TABLET PO ×4 (00:59→23:05)
[2020-11-09 07:40] VITALS: BP 146/69; PULSE 70; RESP 18; TEMP 36.6; O2SAT 99
[2020-11-09] MEDS: Thyroid,Pork 30 MG TABLET PO ×2 (08:13→20:10)
[2020-11-09] MEDS: DULoxetine HCl 30 MG CAPSULE.DR PO (08:13)
[2020-11-09] MEDS: Lurasidone HCl 20 MG TABLET PO (08:14)
[2020-11-09] MEDS: carisoprodoL 350 MG TABLET PO ×3 (08:14→20:10)
[2020-11-09] MEDS: Omeprazole 20 MG CAPSULE.DR PO (08:15)
[2020-11-09] MEDS: oxyCODONE HCl Immed Release 5 MG TABLET 10 MG PO ×3 (08:15→20:10)
[2020-11-09] MEDS: Ascorbic Acid 500 MG TABLET PO (08:15)
--- NOTE | 2020-11-09 08:15 | HO.PSYCHPN ---
Subjective Subjective Date of Service: 11/09/20 Reason For Visit: crisis Subjective Notes: Conditional Voluntary Healthcare Proxy: No Guardianship: No Medical Problems Affecting Mental Status: Yes Interim History: Remains labile, anxious. Frequent isits to RN station. Pleased that Soma and Oxy reinstated. Agrees to DC eunmbalta. We discussed notion of mood acceleration. Encouraged to ct w Dr Montejo but reduce pain meds. Medication Compliance: Yes Diagnostics Vital Signs (24Hr): Vital Signs - 24 hr 11/08/20 20:53 Temperature 97.8 F Pulse Rate 80 Blood Pressure 134/85 Pulse Oximetry 99 Body Mass Index 33.6 Labs Results: 11/07/20 09:40 11/07/20 09:40 Labs: Laboratory Results - last 48 hr 11/07/20 11/07/20 11/07/20 09:40 09:40 09:40 WBC 6.3 RBC 4.18 L Hgb 12.2 Hct 39.2 MCV 93.8 MCH 29.2 MCHC 31.1 RDW 13.2 Plt Count 274 MPV 9.3 L Immature Gran % (Auto) 0.5 H Neut % (Auto) 54.0 Lymph % (Auto) 33.3 [place] % (Auto) 8.0 Eos % (Auto) 3.7 Baso % (Auto) 0.5 Lymph # (Auto) 2.1 [place] # (Auto) 0.5 Eos # (Auto) 0.2 Baso # (Auto) 0.0 Abs Immat Gran (auto) 0.03 Absolute Neuts (auto) 3.4 Absolute Nucleated RBC 0.000 Nucleated RBC % (auto) 0.0 Sodium 140 Potassium 4.1 Chloride 108 Carbon Dioxide 23 Anion Gap 13 BUN 9 Creatinine 0.86 Estim Creat Clear Calc 87.9 Estimated GFR > 60 Random Glucose 128 H Calcium 8.8 Total Bilirubin 0.5 Direct Bilirubin < 0.2 AST 25 D ALT 16 Alkaline Phosphatase 74 Total Protein 5.9 L Albumin 3.6 Ethyl Alcohol < 10 Medications Medications Current Medications Acetaminophen (Acetaminophen 325 Mg Tablet) 650 mg PO Q6H PRN PRN Reason: Headache/Pain Mild Scale (1-3) Last Admin: 11/08/20 10:33 Dose: 650 mg Documented by: Al Hydroxide/Mg Hydroxide (Magnesium Hydrox/Alum Hydrox 30 Ml Oral.Susp) 30 ml PO Q6H PRN PRN Reason: Heartburn/Nausea Ascorbic Acid (Ascorbic Acid 500 Mg Tablet) 500 mg PO DAILY [facility] Last Admin: 11/08/20 08:25 Dose: 500 mg Documented by: Carisoprodol (Carisoprodol 350 Mg Tablet) 350 mg PO TID [facility] Last Admin: 11/08/20 20:45 Dose: 350 mg Documented by: Cyanocobalamin (Cyanocobalamin (Vitamin B-12) 1,000 Mcg/Ml Vial) 1,000 mcg IM Q28D [facility] Duloxetine HCl (Duloxetine Hcl 30 Mg Capsule.Dr) 30 mg PO DAILY [facility] Last Admin: 11/08/20 08:23 Dose: 30 mg Documented by: Hydroxyzine HCl (Hydroxyzine Hcl 25 Mg Tablet) 25 mg PO Q6H PRN PRN Reason: anxiety/restlessness Last Admin: 11/09/20 00:59 Dose: 25 mg Documented by: [place] Carbonate ([place] Carbonate Er 300 Mg Tablet.Er) 600 mg PO BEDTIME [facility] Last Admin: 11/08/20 20:45 Dose: 600 mg Documented by: Lurasidone HCl (Lurasidone Hcl 20 Mg Tablet) 20 mg PO DAILY [facility] Last Admin: 11/08/20 08:23 Dose: 20 mg Documented by: Magnesium Hydroxide (Milk Of Magnesia 30 Ml Oral.Susp) 30 ml PO DAILY PRN PRN Reason: Constipation Omeprazole (Omeprazole 20 Mg Capsule.Dr) 20 mg PO DAILY@0630 [facility] Last Admin: 11/08/20 11:42 Dose: Not Given Documented by: Oxycodone HCl (Oxycodone Hcl Immed Release 5 Mg Tablet) 10 mg PO TID [facility] Last Admin: 11/08/20 20:45 Dose: 10 mg Documented by: Thyroid (Thyroid,Pork 30 Mg Tablet) 30 mg PO BID [facility] Last Admin: 11/08/20 20:45 Dose: 30 mg Documented by: Trazodone HCl (Trazodone Hcl 100 Mg Tablet) 100 mg PO BEDTIME PRN PRN Reason: Anxiety Last Admin: 11/08/20 20:45 Dose: 100 mg Documented by: Allergies Allergies Allergy/AdvReac Type Severity Reaction Status Date / Time amoxicillin [Amoxicillin] Allergy Severe HIVES, Verified 11/06/20 21:59 swelling Assessment & Plan Greater than 50% of the session was spent on counseling and/or coordination of care Reason for contiued inpatient stay Substantial Risk for: harm to self and inability to function
[2020-11-09] MEDS: Lithium Carbonate ER 300 MG TABLET.ER 600 MG PO ×2 (13:35→20:09)
[2020-11-09 18:00] VITALS: BP 131/63; PULSE 74; RESP 18; TEMP 36.6; O2SAT 95
[2020-11-09] MEDS: traZODone HCL 100 MG TABLET PO (20:11)
[2020-11-10 06:00] VITALS: BP 160/77; PULSE 73; RESP 16; TEMP 36.6; O2SAT 99
[2020-11-10] MEDS: Thyroid,Pork 30 MG TABLET PO ×2 (08:23→20:32)
[2020-11-10] MEDS: Ascorbic Acid 500 MG TABLET PO (08:24)
[2020-11-10] MEDS: carisoprodoL 350 MG TABLET PO ×3 (08:24→20:31)
[2020-11-10] MEDS: Lithium Carbonate ER 300 MG TABLET.ER 600 MG PO ×2 (08:24→20:32)
[2020-11-10] MEDS: Omeprazole 20 MG CAPSULE.DR PO (08:24)
[2020-11-10] MEDS: Lurasidone HCl 20 MG TABLET PO (08:24)
[2020-11-10] MEDS: oxyCODONE HCl Immed Release 5 MG TABLET 10 MG PO ×3 (08:26→20:32)
[2020-11-10] MEDS: diazePAM 5 MG TABLET PO (10:39)
--- NOTE | 2020-11-10 14:29 | P.PNPSI_ITS ---
Subjective Subjective Date of Service: 11/10/20 Reason For Visit: crisis Interim History: pt reports she is feeling much better than prior to admission. feels Dr. Claudio straightened out her medications, such that she is on soma 350 TID, lithium 600 BID, latuda 20 dauily, oxycodone 10 TID, and cymbalta has been DCed. 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 feeeling better, ready to discharge tomorrow. has an appointment with her prescriber haja. per staff, states she did not overdose, just took extra medication bcse she was trying to sleep. cooperative, pleasant, social. a bit intrusive. 3-day up 11/12. i just needed sleep. eating and sleeping well here. Mental Status Exam Mental Status Exam Patient Appearance: Well Grooomed Patient Orientation: Person, Place, Time and Situation Level of Consciousness: Awake Patient Behavior: Appropriate, Talkative and Cooperative Mood Description: Happy Affect Description: Appropriate Speech Pattern: Spontaneous Speech Memory Description: Intact Hallucinations: None Delusions: Not Present Thought Process: Intact Thought Content: positive for Intact Abnormal Motor Activity Signs and Symptoms: Agitation Judgement: Poor Diagnostics Vital Signs (24Hr): Vital Signs - 24 hr 11/09/20 18:00 11/10/20 06:00 Temperature 97.9 F 97.9 F Pulse Rate 74 73 Respiratory Rate 18 16 Blood Pressure 131/63 160/77 H Pulse Oximetry 95 99 Body Mass Index 33.6 Labs Results: 11/07/20 09:40 11/07/20 09:40 Medications Medications Current Medications Acetaminophen (Acetaminophen 325 Mg Tablet) 650 mg PO Q6H PRN PRN Reason: Headache/Pain Mild Scale (1-3) Last Admin: 11/08/20 10:33 Dose: 650 mg Documented by: Al Hydroxide/Mg Hydroxide (Magnesium Hydrox/Alum Hydrox 30 Ml Oral.Susp) 30 ml PO Q6H PRN PRN Reason: Heartburn/Nausea Ascorbic Acid (Ascorbic Acid 500 Mg Tablet) 500 mg PO DAILY [facility] Last Admin: 11/10/20 08:24 Dose: 500 mg Documented by: Carisoprodol (Carisoprodol 350 Mg Tablet) 350 mg PO TID [facility] Last Admin: 11/10/20 08:24 Dose: 350 mg Documented by: Cyanocobalamin (Cyanocobalamin (Vitamin B-12) 1,000 Mcg/Ml Vial) 1,000 mcg IM Q28D [facility] Hydroxyzine HCl (Hydroxyzine Hcl 25 Mg Tablet) 25 mg PO Q6H PRN PRN Reason: anxiety/restlessness Last Admin: 11/09/20 23:05 Dose: 25 mg Documented by: [place] Carbonate ([place] Carbonate Er 300 Mg Tablet.Er) 600 mg PO BID [facility] Last Admin: 11/10/20 08:24 Dose: 600 mg Documented by: Lurasidone HCl (Lurasidone Hcl 20 Mg Tablet) 20 mg PO DAILY [facility] Last Admin: 11/10/20 08:24 Dose: 20 mg Documented by: Magnesium Hydroxide (Milk Of Magnesia 30 Ml Oral.Susp) 30 ml PO DAILY PRN PRN Reason: Constipation Omeprazole (Omeprazole 20 Mg Capsule.Dr) 20 mg PO DAILY@0630 [facility] Last Admin: 11/10/20 08:24 Dose: 20 mg Documented by: Oxycodone HCl (Oxycodone Hcl Immed Release 5 Mg Tablet) 10 mg PO TID [facility] Last Admin: 11/10/20 08:26 Dose: 10 mg Documented by: Thyroid (Thyroid,Pork 30 Mg Tablet) 30 mg PO BID [facility] Last Admin: 11/10/20 08:23 Dose: 30 mg Documented by: Trazodone HCl (Trazodone Hcl 100 Mg Tablet) 100 mg PO BEDTIME PRN PRN Reason: Anxiety Last Admin: 11/09/20 20:11 Dose: 100 mg Documented by: Allergies Allergies Allergy/AdvReac Type Severity Reaction Status Date / Time amoxicillin [Amoxicillin] Allergy Severe HIVES, Verified 11/06/20 21:59 swelling Assessment & Plan Assessment & Plan (1) Bipolar disorder: Status: Acute Code(s): F31.9 - Bipolar disorder, unspecified Assessment and Plan: 1. F/U with goderez weds. 2. Need to reduce pain meds bc of overuse. 3. Optimize [place]. 4. Increase Latuda. 5. DC CYMBALTA DUE TO RAPID CYCLING. discharge tomorrow Greater than 50% of the session was spent on counseling and/or coordination of care Reason for contiued inpatient stay Substantial Risk for: rapid decompensation
--- NOTE | 2020-11-10 15:04 | MHC.CLN ---
NUTRITION WEIGHT LOSS REPORTED. REVIEW OF WEIGHTS SHOWS 05/1399=423.9 KG; 11/0727=474.4 KG. WEIGHT LOSS, NOT SIGNIFICANT, X 6 MONTHS=-5.5 KG, 5.1%. NO ADDITIONAL NUTRITION INTERVENTIONS.
[2020-11-10] MEDS: hydrOXYzine HCL 25 MG TABLET PO ×2 (17:09→23:34)
[2020-11-10 18:00] VITALS: BP 122/62; PULSE 69; RESP 18; TEMP 36.6; O2SAT 98
[2020-11-10] MEDS: traZODone HCL 100 MG TABLET PO (20:32)
[2020-11-11 06:00] VITALS: BP 134/63; PULSE 64; RESP 18; TEMP 36.3; O2SAT 97
[2020-11-11] MEDS: Omeprazole 20 MG CAPSULE.DR PO (06:51)
[2020-11-11] MEDS: oxyCODONE HCl Immed Release 5 MG TABLET 10 MG PO ×2 (08:01→14:13)
[2020-11-11] MEDS: Lurasidone HCl 20 MG TABLET PO (08:01)
[2020-11-11] MEDS: Lithium Carbonate ER 300 MG TABLET.ER 600 MG PO (08:01)
[2020-11-11] MEDS: Thyroid,Pork 30 MG TABLET PO (08:01)
[2020-11-11] MEDS: carisoprodoL 350 MG TABLET PO ×2 (08:01→14:13)
[2020-11-11] MEDS: Ascorbic Acid 500 MG TABLET PO (08:01)
--- NOTE | 2020-11-11 13:39 | P.DS_ITS ---
DS: Providers Provider Date of Service: 11/11/20 Date of admission: 11/07/20 13:37 Primary care physician: Driss Santiago MD DS: Diagnosis Discharge Diagnosis (1) Bipolar disorder: Status: Acute DS: Medications Discharge Medications Home Medications: Home Medications Medication Instructions Recorded Confirmed trazodone 100 mg tablet 100 mg PO BEDTIME PRN 10/13/20 11/07/20 ascorbic acid (vitamin C) 500 mg 1 tab PO DAILY 11/04/20 11/07/20 tablet (Vitamin C) cyanocobalamin (vitamin B-12) 1,000 mcg IM QMONTH 11/04/20 11/07/20 1,000 mcg/mL injection solution pantoprazole 40 mg tablet,delayed 1 tab PO DAILY 11/04/20 11/07/20 release thyroid (pork) 30 mg tablet 1 tab PO BID 11/04/20 11/07/20 (Ely Thyroid) Previous Rx's Medication Instructions Recorded carisoprodol 350 mg tablet 350 mg PO TID #0 tab 11/11/20 lithium carbonate 300 mg 600 mg PO BID #0 tab 11/11/20 tablet,extended release lurasidone 20 mg tablet (Latuda) 20 mg PO DAILY #0 tab 11/11/20 oxycodone 5 mg tablet 10 mg PO TID 1 Days #6 tab 11/11/20 Mental Status Exam Mental Status Exam Narrative: no SI/HI/AVH Patient Appearance: Well Grooomed Patient Orientation: Person, Place, Time and Situation Level of Consciousness: Awake Patient Behavior: Appropriate, Talkative and Cooperative Mood Description: Happy Affect Description: Appropriate Speech Pattern: Spontaneous Speech Memory Description: Intact Hallucinations: None Delusions: Not Present Thought Process: Intact Thought Content: positive for Intact Data Data Completed and Pending Completed studies during hospitalization [Text1]: 11/06/20 11/06/20 11/06/20 22:16 22:16 22:16 WBC RBC Hgb Hct MCV MCH MCHC RDW Plt Count MPV Immature Gran % (Auto) Neut % (Auto) Lymph % (Auto) [place] % (Auto) Eos % (Auto) Baso % (Auto) Lymph # (Auto) [place] # (Auto) Eos # (Auto) Baso # (Auto) Abs Immat Gran (auto) Absolute Neuts (auto) Absolute Nucleated RBC Nucleated RBC % (auto) Sodium Potassium Chloride Carbon Dioxide Anion Gap BUN Creatinine Estim Creat Clear Calc Estimated GFR Random Glucose Calcium Total Bilirubin Direct Bilirubin AST ALT Alkaline Phosphatase Total Protein Albumin Urine Color YELLOW Urine Appearance CLEAR Urine pH 6.0 Ur Specific [place] <= 1.005 Urine Protein NEG Urine Glucose (UA) NEG Urine Ketones NEG Urine Blood NEG Urine Nitrite NEG Ur Leukocyte Esterase 1+ H Urine RBC 0 Urine WBC 0-2 Ur Squamous Epith Cells TRACE Urine Bacteria TRACE Urine Opiates Screen Not Detected Urine Fentanyl Screen POSITIVE H Ur Barbiturates Screen Not Detected Ur Phencyclidine Scrn Not Detected Ur Amphetamines Screen Not Detected U Benzodiazepines Scrn POSITIVE H Urine Cocaine Screen Not Detected U Marijuana (THC) Screen Not Detected Ethyl Alcohol COVID-19 ([facility]) Negative COVID-19 Clin Com See Note 11/07/20 11/07/20 11/07/20 09:40 09:40 09:40 WBC 6.3 RBC 4.18 L Hgb 12.2 Hct 39.2 MCV 93.8 MCH 29.2 MCHC 31.1 RDW 13.2 Plt Count 274 MPV 9.3 L Immature Gran % (Auto) 0.5 H Neut % (Auto) 54.0 Lymph % (Auto) 33.3 [place] % (Auto) 8.0 Eos % (Auto) 3.7 Baso % (Auto) 0.5 Lymph # (Auto) 2.1 [place] # (Auto) 0.5 Eos # (Auto) 0.2 Baso # (Auto) 0.0 Abs Immat Gran (auto) 0.03 Absolute Neuts (auto) 3.4 Absolute Nucleated RBC 0.000 Nucleated RBC % (auto) 0.0 Sodium 140 Potassium 4.1 Chloride 108 Carbon Dioxide 23 Anion Gap 13 BUN 9 Creatinine 0.86 Estim Creat Clear Calc 87.9 Estimated GFR > 60 Random Glucose 128 H Calcium 8.8 Total Bilirubin 0.5 Direct Bilirubin < 0.2 AST 25 D ALT 16 Alkaline Phosphatase 74 Total Protein 5.9 L Albumin 3.6 Urine Color Urine Appearance Urine pH Ur Specific [place] Urine Protein Urine Glucose (UA) Urine Ketones Urine Blood Urine Nitrite Ur Leukocyte Esterase Urine RBC Urine WBC Ur Squamous Epith Cells Urine Bacteria Urine Opiates Screen Urine Fentanyl Screen Ur Barbiturates Screen Ur Phencyclidine Scrn Ur Amphetamines Screen U Benzodiazepines Scrn Urine Cocaine Screen U Marijuana (THC) Screen Ethyl Alcohol < 10 COVID-19 ([facility]) COVID-19 Clin Com 09/16/21 22:29 Urine clean catch - Urine mtz top Urine Culture - Final DS: Summary Hospital Course Hospital Course: per González MORTON 11/08 H&P: 60 MWW, Long Hx of mood disorder , pt of Dr Montejo x 30 years. Last year Dx was switched to bipolar. Presents with increased depression/anxiety/H/HW. Reported OD ( inadvertent? ) on 11/14 denied SI. Was Dcd home from ED but returned with above Sx. Today, reports racing thoughts/jumping from topic to topic, POS. FOI. mixed Sx. says Im always like this ... I have ADHD . Hx overuse of pain meds and SEd-Hyp. Notably Opioids Rxed by OP psychiatrist. Hx PTSD : from ACEs while growing up in [place]. Left home age 15.5. No psychotic Sx. No other major syndromes. Past Psychiatric History: Dr Montejo x 30 years. No past hospitalizations. 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 Denies DSH in past. Medical Evaluation Reviewed: Yes [facility] Medical History?(Updated 11/09/20 @ 18:00 by Ramez Claudio MD) ADHD Anemia Anxiety and depression Back pain Bipolar disorder DDD (degenerative disc disease) GERD (gastroesophageal reflux disease) Hx of small bowel obstruction Hypercholesterolemia Iron deficiency anemia Lumbar disc herniation Obesity Osteoarthritis PTSD (post-traumatic stress disorder) Right rotator cuff tear Surgical History? History of adjustable gastric banding History of removal of laparoscopic gastric banding device History of Theo-en-Y gastric bypass Hx laparoscopic cholecystectomy Hx of section Hx of laminectomy Hx of laparoscopic gastric banding Hx of tonsillectomy S/P panniculectomy Family History: F: ETOH. Others had undiagnosed mental illness. Much abuse/neglect. ACEs+ Social History: Lives with H x 30 years. He is supportive. 2 adult children 22 and 28. 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 Substance History: Denies except overuse of opioids/ sed-hyps Trauma History: As above per González MORTON 11/09 Progress Note: Remains labile, anxious. Frequent isits to RN station. Pleased that Soma and Oxy reinstated. Agrees to HI cymbalta. We discussed notion of mood acceleration. Encouraged to ct w Dr Montejo but reduce pain meds. per Adalberto MORTON 11/10 Progress Note: pt reports she is feeling? much better than prior to admission.? feels Dr. Claudio straightened out her medications, such that she is on soma 350 TID, lithium 600 BID, latuda 20 dauily, oxycodone 10 TID, and cymbalta has been DCed.? 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 feeeling better, ready to discharge tomorrow.? has an appointment with her prescriber weds.? per staff, states she did not overdose, just took extra medication bcse she was trying to sleep.? cooperative, pleasant, social.? a bit intrusive.? 3-day up 11/12.? i just needed sleep. ? eating and sleeping well here. 11/11: pt reports she continues to feel well and ready for discharge today. meds reviewed, reconciled, and prescribed. pt reports she has all meds aside from oxycodone. pt has an appointment with her prescriber tomorrow and is provided with 24 hours' worth of oxycodone. she has no questions or complaints for MD otherwise. per staff, pt took atarax PRN last evening. denies SI/HI/AVH. 3- day notice submitted, matures tomorrow. c/o lumbago and leg pain. pt discharged to outpt care 11/11 per her request. aftercare in place. Time Spent with Patient Time attestation: Total time spent providing and/or coordinating discharge services: Discharge Plan Discharge Patient Disposition: Home, Self-Care Discharge Diagnosis: Bipolar I Disorder, MRE Depressed Referrals: Dr. Montejo (psychiatrist) [Other] - 11/14/20 11:30 am (Telehealth appointment) Sravanthi Mendez (therapy intake) [Other] - 11/12/20 1:00 pm (In office appointment) Driss Santiago MD [Primary Care Provider] - 1 Week Discharge Medications: New carisoprodol 350 mg Tablet 350 mg PO TID Qty: 0 RF: 0 lithium carbonate 300 mg Tablet Extended Release 600 mg PO BID Qty: 0 RF: 0 Lat[place] 20 mg Tablet 20 mg PO DAILY Qty: 0 RF: 0 oxycodone 5 mg Tablet 10 mg PO TID 1 Days Qty: 6 RF: 0 Continued ascorbic acid (vitamin C) [Vitamin C] 500 mg tablet 1 tab PO DAILY RF: 0 pantoprazole 40 mg tablet,delayed release (DR/EC) 1 tab PO DAILY RF: 0 thyroid (pork) [[place] Thyroid] 30 mg tablet 1 tab PO BID RF: 0 cyanocobalamin (vitamin B-12) 1,000 mcg/mL Solution 1,000 mcg IM QMONTH RF: 0 trazodone 100 mg Tablet 100 mg PO BEDTIME PRN (Reason: Anxiety) RF: 0 Discontinued Latuda 20 mg tablet 1 tab PO DAILY RF: 0 carisoprodol 350 mg tablet 1 tab PO QID RF: 0 lithium carbonate 300 mg tablet extended release 2 tab PO BEDTIME RF: 0 Discharge Orders: Discharge Order (Routine); Ordered 11/11/20 Ordered By: Sky Glover Diet: advance to usual diet Activity on Discharge: As tolerated Stand Alone Forms: Patient Portal Discharge page Care Plan Goals: remain stable in outpatient treatment Health Concerns: chronic pain hypothyroidism Plan of Treatment: take medications as prescribed, attend outpatient appointments as scheduled Assessment: not at imminent risk of harm to self or others
== END 2020-11-11 14:30 | disposition home or self-care (01) | DRG 885 ==
LOC: HO.ED 22:13 → HO.PADLT16 11-07 13:57
PROVIDERS: Physician Assistant; Admitting Provider Psychiatry & Neurology Psychiatry; Emergency Provider Internal Medicine; PCP Internal Medicine; Visit Provider Psychiatry & Neurology Psychiatry
DX: F31.9 Bipolar disorder, unspecified (principal); F41.9 Anxiety disorder, unspecified; F90.9 Attention-deficit hyperactivity disorder, unspecified type; K21.9 Gastro-esophageal reflux disease without esophagitis; Z20.822 Contact with and (suspected) exposure to COVID-19; Z88.0 Allergy status to penicillin; Z79.899 Other long term (current) drug therapy
CPT/HCPCS: 36415; 80053; 80307; 81001; 82077; 82248; 85025; 87086; 87635; 93005; 99285

== ENCOUNTER 2020-11-15 10:55 | Outpatient (REF) | payer OTHER, SELFPAY ==
[2020-11-15 11:21] LABS: MANUAL DIFF FLAG NO
[2020-11-15 11:27] LABS: Basophils Percent Auto 0.4 % (0-2); Eosinophils Absolute Auto 0.3 X10*3/uL (0.0-0.4); Eosinophils Percent Auto 3.6 % (0-4); Hematocrit 41.5 % (37-47); Hemoglobin 12.7 g/dl (12.0-16.0); Imm Gran Abs Auto 0.02 X10*3/uL (0.00-0.03); Imm Gran Pct Auto 0.2 % (0.0-0.4); Immature Retic Fraction 7.8 % (3.0-15.9); Lymphocytes Percent Auto 21.4 % (20-40); Mean Corpuscular HGB Conc 30.6 g/dl (31.0-35.0); Mean Corpuscular Hemoglobin 28.9 pg (27.0-33.0); Mean Corpuscular Volume 94.3 fL (80-98); Mean Platelet Volume 9.6 fL (9.4-12.3); Monocytes Absolute Auto 0.5 X10*3/uL (0.1-1.2); Monocytes Percent Auto 5.4 % (2-11); Neutrophils Absolute Auto 6.4 X10*3/uL (2.0-8.3); Platelet Count 257 X10*3/uL (160-400); Red Cell Distribution Width 12.8 % (11.0-16.0); Retic HGB Equivalent 32.3 pg (30.0-35.0); Reticulocyte Percent 1.2 % (0.5-1.8); Reticulocytes Absolute 0.052 X10*6/uL (0.026-0.095); White Blood Count 9.3 X10*3/uL (4.8-10.8)
[2020-11-15 11:50] LABS: Iron 153 mcg/dL (30-160); Percent Iron Saturation 43 % (15-50); Total Iron Binding Capacity 354 mcg/dL (228-428); Unsaturated Iron Binding 201 ug/dL
[2020-11-15 12:08] LABS: T4 Thyroxine 4.3 ug/dL (4.5-12.0)
[2020-11-15 12:11] LABS: Ferritin 27 ng/mL (10-250); Free T4 (Free Thyroxine) 0.63 ng/dL (0.71-1.85); Thyroid Stimulating Hormone 3.66 uIU/mL (0.32-4.0)
[2020-11-17 10:31] LABS: Triiodothyronine T3 Free 2.6 pg/mL (2.3-4.2); Triiodothyronine T3 Total 84 ng/dL (76-181)
[2020-11-17 10:32] LABS: Folate 14.8 ng/mL (> or = 4.0); Vitamin B12 438 pg/mL (200-900)
== END 2020-11-15 10:56 | disposition home or self-care (01) ==
LOC: HO.LABR 10:55
PROVIDERS: PCP Internal Medicine; Visit Provider Psychiatry & Neurology Psychiatry
DX: E03.9 Hypothyroidism, unspecified (principal)
CPT/HCPCS: 36415; 82607; 82728; 82746; 83540; 84436; 84439; 84443; 84480; 84481; 85025; 85045

== ENCOUNTER 2020-11-19 16:43 | Outpatient (REF) | payer OTHER, SELFPAY | END 2020-11-19 16:44 | disposition home or self-care (01) | LOC: HO.LNP 16:43 | PROVIDERS: Visit Provider Nurse Practitioner Family | DX: R32 Unspecified urinary incontinence (principal) | CPT/HCPCS: 87086 ==

== ENCOUNTER → 2020-11-27 10:04 | Outpatient (BNVA) | payer OTHER, SELFPAY | PROVIDERS: PCP Internal Medicine; Referring Provider Internal Medicine; Visit Provider Surgery ==

== ENCOUNTER 2020-12-22 11:51 | Outpatient (REF) | payer OTHER, SELFPAY ==
[2020-12-22 12:10] LABS: MANUAL DIFF FLAG NO
[2020-12-22 13:09] LABS: Basophils Absolute Auto 0.1 X10*3/uL (0.0-0.2); Basophils Percent Auto 0.5 % (0-2); Eosinophils Absolute Auto 0.3 X10*3/uL (0.0-0.4); Eosinophils Percent Auto 3.4 % (0-4); Hematocrit 40.5 % (37.0-47.0); Hemoglobin 12.7 g/dl (12.0-16.0); Imm Gran Abs Auto 0.01 X10*3/uL (0.00-0.03); Imm Gran Pct Auto 0.1 % (0.0-0.4); Lymphocytes Absolute Auto 2.6 X10*3/uL (1.2-4.9); Lymphocytes Percent Auto 28.8 % (20-40); Mean Corpuscular HGB Conc 31.4 g/dl (31.0-35.0); Mean Corpuscular Hemoglobin 28.7 pg (27.0-33.0); Mean Corpuscular Volume 91.4 fL (80.0-98.0); Mean Platelet Volume 10.6 fL (9.4-12.3); Monocytes Absolute Auto 0.6 X10*3/uL (0.1-1.2); Monocytes Percent Auto 6.2 % (2-11); Neutrophils Absolute Auto 5.58 x10*3/uL (2.0-8.3); Platelet Count 260 X10*3/uL (160-400); Red Blood Count 4.43 X10*6/uL (4.20-5.50); Red Cell Distribution Width 13.2 % (11.0-16.0); White Blood Count 9.2 X10*3/uL (4.8-10.8)
[2020-12-22 13:34] LABS: Iron 69 mcg/dL (30-160); Percent Iron Saturation 20 % (15-50); Total Iron Binding Capacity 350 mcg/dL (228-428); Unsaturated Iron Binding 281 ug/dL
[2020-12-22 13:35] LABS: Estimated Average Glucose 97 mg/dL
[2020-12-22 13:39] LABS: Alanine Aminotransferase 8 U/L (0-31); Alkaline Phosphatase 86 U/L (39-117); Anion Gap 13 (12-20); Aspartate Amino Transferase 16 U/L (5-31); Bilirubin Total 0.7 mg/dL (0.0-1.0); Blood Urea Nitrogen 12 mg/dL (9-16); C Reactive Protein 0.09 mg/dL (< or = 0.50); Calcium 9.6 mg/dL (8.4-10.2); Carbon Dioxide 25 mmol/L (22-29); Chloride 103 mmol/L (96-108); Cholesterol 182 mg/dL; Estimated Glomerular Filt Rate > 60; Glucose Random 98 mg/dL (60-115); HDL Cholesterol 55 mg/dL; LDL Cholesterol Calculated 101 mg/dl; Potassium 4.8 mmol/L (3.3-5.1); Sodium 136 mmol/L (135-145); Total Protein 6.4 g/dL (6.5-8.0); Triglycerides 132 mg/dL
[2020-12-22 13:55] LABS: Insulin 10 uU/mL (2-29)
[2020-12-22 13:59] LABS: Ferritin 15 ng/mL (10-250); Vitamin D 25-OH Total 21.6 ng/mL (>30)
[2020-12-22 14:11] LABS: Vitamin B12 354 pg/mL (200-900)
[2020-12-24 12:11] LABS: Calcium (PTHI) 9.3 mg/dL (8.6-10.4); PTHI 73 pg/mL (14-64)
[2020-12-25 02:52] LABS: Zinc 61 mcg/dL (60-130)
[2020-12-27 20:27] LABS: Vitamin A 48 mcg/dL (38-98)
[2020-12-28 11:02] LABS: Vitamin B1 12 nmol/L (8-30)
== END 2020-12-22 11:52 | disposition home or self-care (01) ==
LOC: HO.LAB 11:51
PROVIDERS: PCP Internal Medicine; Visit Provider Physician Assistant
DX: E03.9 Hypothyroidism, unspecified (principal); E66.01 Morbid (severe) obesity due to excess calories; Z68.36 Body mass index [BMI] 36.0-36.9, adult; Z98.84 Bariatric surgery status
CPT/HCPCS: 36415; 80053; 80061; 82306; 82607; 82728; 82746; 83036; 83525; 83540; 83970; 84425; 84590; 84630; 85025; 86140

== ENCOUNTER 2020-12-25 08:36 | Outpatient (REF) | payer OTHER, SELFPAY ==
--- NOTE | ~2020-12-25 | CT_ITS ---
EXAMINATION: CT ABDOMEN AND PELVIS WITH CONTRAST CLINICAL INFORMATION: Abdominal pain COMPARISON: 11/17/2019 TECHNIQUE: Multidetector volumetric images were obtained from the superior aspect of the liver through the pubic symphysis following administration 85 mL of Omnipaque 350 intravenous contrast. Sagittal and coronal reformatted images were obtained on the technologist's workstation. Oral contrast: No This CT examination was performed using dose optimization techniques as appropriate, variously including the following: *Automated exposure control *Adjustment of mA and/or kV according to patient size (this includes techniques or standardized protocols for targeted exams where dose is matched to indication/reason for exam; i.e. extremities or head) *Use of iterative reconstruction technique DLP: 671 mGy-cm FINDINGS: LUNG BASES: The visualized lung bases are unremarkable. LIVER, GALLBLADDER, AND BILIARY TREE: The liver is normal in size, shape, and attenuation. No focal hepatic lesion or biliary ductal dilatation is present. Cholecystectomy. PANCREAS: Unremarkable. SPLEEN: Unremarkable. ADRENAL GLANDS: Unremarkable. KIDNEYS AND URETERS: The kidneys are normal in size, shape, and attenuation. No hydronephrosis, hydroureter, or calculi seen. No perinephric stranding. BLADDER: Unremarkable. GASTROINTESTINAL TRACT: Postsurgical stomach with Theo-en-Y gastric bypass. Small hiatal hernia appears similar to prior. Contrast extends into the small bowel with distal extension. No obstruction. No colonic wall thickening or inflammation. Scattered diverticulosis without diverticulitis. No free air or free fluid. ABDOMINAL WALL: No significant hernia is appreciated. LYMPH NODES: Normal. VASCULAR: Unremarkable. PELVIC VISCERA: The uterus and adnexa are unremarkable. OSSEOUS STRUCTURES: No acute or suspicious osseous abnormality. Degenerative changes throughout the spine. Endplate sclerosis most prominent at L2-L3 with progressive appearance since 2019. CT/CT abdomen pelvis w con IMPRESSION: No acute abnormality. No inflammatory changes. Theo-en-Y gastric bypass with small hiatal hernia, unchanged. Fairly advanced degenerative changes throughout the spine, which have progressed from 2020.
[2020-12-25] MEDS: iohexoL 350 MG/ML 100 ML INFUS..BTL IV (11:59)
== END 2020-12-25 08:37 | disposition home or self-care (01) ==
LOC: HO.CT 08:36
PROVIDERS: PCP Internal Medicine; Visit Provider Physician Assistant Surgical
DX: R10.9 Unspecified abdominal pain (principal)
CPT/HCPCS: 74177; Q9967

== ENCOUNTER → 2020-12-31 13:30 | Outpatient (BNVA) | payer OTHER, SELFPAY | PROVIDERS: PCP Internal Medicine; Referring Provider Internal Medicine; Visit Provider Physician Assistant Surgical ==

== ENCOUNTER 2021-02-09 10:52 | Inpatient (IN) | payer OTHER, SELFPAY ==
--- NOTE | 2021-02-09 | ECG_ITS ---
Test Reason : elevated lithium levels Blood Pressure : / mmHG Vent. Rate : 051 BPM Atrial Rate : 051 BPM P-R Int : 160 ms QRS Dur : 088 ms QT Int : 484 ms P-R-T Axes : 039 016 018 degrees QTc Int : 446 ms Sinus bradycardia Nonspecific ST and T wave abnormality Borderline ECG When compared with ECG of 09-FEB-2021 10:58, No significant change was found Referred By: Latoya Sanchez Electronically Signed By:CLAUDIA ANDERSON
--- NOTE | ~2021-02-09 | XR_ITS ---
EXAMINATION: XR CHEST CLINICAL INFORMATION: Aphasia COMPARISON: Previous chest x-ray most recent October 2020 TECHNIQUE: 2 views of the chest were obtained. FINDINGS: The cardiac and mediastinal contours are stable. The lungs are clear. There is no pleural effusion or pneumothorax. There are degenerative changes of the spine. XR/XR chest 2V IMPRESSION: No evidence for acute disease in the chest.
--- NOTE | ~2021-02-09 | MR_ITS ---
EXAMINATION: MR BRAIN WITHOUT CONTRAST CLINICAL INFORMATION: CVA versus TIA. COMPARISON: Head CT from 02/09/2021. TECHNIQUE: Multiplanar, multisequence imaging of the brain was performed without contrast. FINDINGS: No diffusion abnormalities are identified to suggest an acute or subacute infarct. The ventricles are normal in size. No mass effect or midline shift is seen. No brain parenchymal signal abnormality is noted. No extra-axial fluid collections are seen. The brainstem and cerebellum are normal. Prominent perivascular spaces noted in the inferior left basal ganglia. The gradient refocused acquisition demonstrates no pathologic magnetic susceptibility artifact to indicate underlying acute or chronic blood products. The craniovertebral junction, marrow signal, and midline structures are normal. The major intracranial flow voids at the level of the clark's point of [place] are preserved. The dural venous sinus flow voids are maintained. There is trace fluid in the dependent left mastoid air cells. The paranasal sinuses are aerated. MR/MR head/brain wo con IMPRESSION: No acute intracranial process. Relatively normal MRI of the brain.
--- NOTE | ~2021-02-09 | CT_ITS ---
EXAMINATION: CT HEAD WITHOUT CONTRAST CLINICAL INFORMATION: Aphasia COMPARISON: Previous head CT scans most recent October 2020 TECHNIQUE: Contiguous axial imaging was performed from the skull base to vertex without intravenous administration of contrast. This CT examination was performed using dose optimization techniques as appropriate, variously including the following: *Automated exposure control *Adjustment of mA and/or kV according to patient size (this includes techniques or standardized protocols for targeted exams where dose is matched to indication/reason for exam; i.e. extremities or head) *Use of iterative reconstruction technique DLP: 748 mGy-cm FINDINGS: There is no evidence of an extra-axial collection. There is no evidence of intra or extra-axial hemorrhage. The ventricles and extra-axial CSF spaces are appropriate. There is an old left basal ganglia lacunar infarct that appears unchanged. There is nonspecific periventricular white matter disease. No mass, mass effect or acute infarct is seen. Review of bone windows is normal. No skull fracture is seen. Visualized paranasal sinuses, mastoid air cells and middle ears are clear. CT/CT head/brain wo con IMPRESSION: Old left basal ganglia lacunar infarct and nonspecific periventricular white matter disease. Findings are similar to October 2020 exam.
--- NOTE | 2021-02-09 10:57 | ECG_ITS ---
Test Reason : neuro symptoms Blood Pressure : / mmHG Vent. Rate : 059 BPM Atrial Rate : 059 BPM P-R Int : 152 ms QRS Dur : 084 ms QT Int : 442 ms P-R-T Axes : -06 012 008 degrees QTc Int : 437 ms Sinus bradycardia Otherwise normal ECG When compared with ECG of 07-NOV-2020 13:17, Inverted T waves have replaced nonspecific T wave abnormality in Inferior leads Referred By: Samantha Brown Electronically Signed By:CLAUDIA ANDERSON
[2021-02-09 11:13] VITALS: BP 116/72; PULSE 53; RESP 18; TEMP 36.9; O2SAT 97; BMI 32.3
--- NOTE | 2021-02-09 11:15 | ED.GENADULT ---
HPI - General Adult General Chief complaint: Weakness Stated complaint: STUTTERING UNABLE TO SPEAK Time Seen by Provider: 02/09/21 10:57 Source: patient and old records reviewed History of Present Illness HPI narrative: Patient with a history of gastric bypass surgery with follow-up gastric band surgery multiple years ago, presents complaining of stuttering speech which started yesterday at approximately noon. She states she is having difficulty word finding. She feels a little off balance but otherwise no focal weakness. She states she feels very shaky and tremulous as well. Diarrhea last week but no other recent illnesses. She is fully vaccinated with the COVID booster 2 weeks ago. No prior history of similar issues. No headache. No traumas No change in medication She states she spoke with her psychiatrist last night due to the symptoms and was told it is not likely medication related. She presents today with concerns for possible stroke. Related Data Home Medications Medication Instructions Recorded Confirmed trazodone 100 mg tablet 100 mg PO BEDTIME PRN 10/13/20 12/31/20 ascorbic acid (vitamin C) 500 mg 1 tab PO DAILY 11/04/20 12/31/20 tablet (Vitamin C) cyanocobalamin (vitamin B-12) 1,000 mcg IM QMONTH 11/04/20 12/31/20 1,000 mcg/mL injection solution pantoprazole 40 mg tablet,delayed 1 tab PO DAILY 11/04/20 12/31/20 release thyroid (pork) 30 mg tablet 1 tab PO BID 11/04/20 12/31/20 ([place] Thyroid) calcium citrate 1,000 mg tablet 1,000 mg PO DAILY 11/27/20 12/31/20 famhbkzr-nrilqnrq-gjoa 45 mg-folic cap PO 11/27/20 12/31/20 acid 800 mcg-vit K 120 mcg capsule (Bariatric Multivitamins) oxycodone 5 mg tablet 10 mg PO QID tab 11/27/20 12/31/20 Previous Rx's Medication Instructions Recorded lithium carbonate 300 mg 600 mg PO BID #0 tab 11/11/20 tablet,extended release lurasidone 20 mg tablet (Latuda) 20 mg PO DAILY #0 tab 11/11/20 ondansetron HCl 4 mg tablet 4 mg PO Q6H PRN #30 tab 11/27/20 (Zofran) cholecalciferol (vitamin D3) 25 25 mcg PO DAILY #30 cap 12/23/20 mcg (1,000 unit) capsule Allergies Allergy/AdvReac Type Severity Reaction Status Date / Time amoxicillin [Amoxicillin] Allergy Severe HIVES, Verified 12/31/20 13:41 swelling Review of Systems Constitutional: Comments: No fevers or chills Eyes: Comments: No vision changes Cardiovascular: Comments: No chest pain or palpitations Respiratory: Comments: No cough or dyspnea Gastrointestinal: Comments: Abdominal pain over the last several months being worked up by her bariatric surgeon with a CT scan recently which was negative for acute disease. Occasional vomiting. Diarrhea last week. Integumentary/Breasts: Comments: No rash Neurologic: Comments: Difficulty speaking Psychiatric: Comments: Anxious PMFSH Past Medical History Medical History ADHD Anemia Anxiety and depression Back pain Bipolar disorder DDD (degenerative disc disease) GERD (gastroesophageal reflux disease) Hx of small bowel obstruction Hypercholesterolemia Iron deficiency anemia Lumbar disc herniation Obesity Osteoarthritis PTSD (post-traumatic stress disorder) Right rotator cuff tear Surgical History History of adjustable gastric banding History of removal of laparoscopic gastric banding device History of Theo-en-Y gastric bypass Hx laparoscopic cholecystectomy Hx of section Hx of laminectomy Hx of laparoscopic gastric banding Hx of tonsillectomy S/P panniculectomy Family History Family History Father HTN (hypertension) DM (diabetes mellitus) Bladder cancer Prostate cancer Hyperlipidemia Mother No problems noted. Brother No problems noted. Sister No problems noted. Son No problems noted. Daughter No problems noted. Social History Social History Household Members: Spouse, Children and Other Household Members Other:: dog and cat Housing: House Do you presently have visiting nurse or other home services: No Alcohol intake: never Patient Tobacco Use Status: Never used Tobacco Use of substances other than those prescribed or required for medical reasons: No Substance Use Type: Opiates Advance Directives: No Advance Directives Information Provided: Yes Patient : No service: No Current occupational status: disabled Sexual orientation: Straight/Heterosexual Physical Exam Vital Signs: Vital Signs: Last Vital Signs Temp 98.5 F 02/09/21 11:13 Pulse 58 02/09/21 12:10 Resp 13 02/09/21 12:10 BP 132/59 L 02/09/21 12:10 Pulse Ox 93 02/09/21 12:10 BMI result Body Mass Index 32.3 Const: Other: Awake alert and anxious but no acute distress HENMT: Other: Normocephalic atraumatic. Pupils equal round reactive to light with extraocular muscles intact Neck: Other: Full range of motion without meningismus Resp: Other: Clear and equal bilaterally without wheezes rales or rhonchi Cardio: Other: Regular rate and rhythm without murmurs rubs or gallops GI: Other: Remote surgical scar consistent with history of gastric bypass surgery. Abdomen with mild left mid tenderness which patient states has been chronic. Otherwise nondistended with normal bowel sounds Skin: Other: Warm pink and dry without rash Neuro: Other: Awake alert and oriented. Intermittent difficulty with word naming. At times fluid without difficulty. No dysarthria noted. Cranial nerves intact. There is no pronator drift. Freezing Machine Operator strength equal bilaterally. Htxyae-gq-eqfv somewhat ataxic on pointing finger to finger bilaterally. No ataxia when touching nose bilaterally. Ambulatory NIH Stroke Scale Internal: Initial- Upon Arrival Time: 11:10 Level of Consciousness: Alert Level of Consciousness Questions: Answers both questions correctly Level of Consciousness Commands: Performs both tasks correctly Best Gaze: Normal Visual: No visual loss Facial Palsy: Normal Motor Arm (Right): No drift Motor Arm (Left): No drift Motor Leg (Right): No drift Motor Leg (Left): No drift Limb Ataxia: Present in two limbs Sensory: Normal Best Language: Mild to moderate aphasia Dysarthia: Normal Extinction and Inattention: No abnormality Score: 3 Course Course Course Narrative: Patient with aphasia. Symptom onset approximately 23-24 hours ago. This could represent stroke versus other metabolic abnormalities. No other focal abnormality. Stroke score is 3 because of 2 on ataxia, but her ataxia is inconsistent and equal bilaterally. One for her intermittent word naming difficulty. Given timeline, and relatively low NIH stroke score, she is not a candidate for thrombolytics or endovascular treatment even if this is a stroke in etiology. Metabolic abnormality is another possible explanation Anxiety Will treat with Ativan and IV fluid bolus. In the meantime workup consisting of CT scan and labs including ammonia level. 1:11 p.m.. Workup in emergency department shows labs are relatively unremarkable. CT scan shows an old lacunar infarct, unchanged from October. I added on a lithium level after review of medication shows she is on lithium. Her last lithium check showed a low level in October. Patient is feeling somewhat better after medication but still with intermittent difficulty word naming. Will hospitalized for further evaluation. Medical Decision Making Lab Data Result diagrams: 02/09/21 11:38 02/09/21 11:38 Labs: Lab Results 02/09/21 02/09/21 02/09/21 Range/Units 11:38 11:38 11:38 WBC 7.0 (4.8-10.8) X10*3/uL RBC 4.32 (4.20-5.50) X10*6/uL Hgb 12.4 (12.0-16.0) g/dl Hct 39.2 (37.0-47.0) % MCV 90.7 (80.0-98.0) fL MCH 28.7 (27.0-33.0) pg MCHC 31.6 (31.0-35.0) g/dl RDW 14.0 (11.0-16.0) % Plt Count 210 (160-400) X10*3/uL MPV 10.2 (9.4-12.3) fL Immature Gran % (Auto) 0.1 (0.0-0.4) % Neut % (Auto) 64.9 (45-73) % Lymph % (Auto) 23.6 (20-40) % [place] % (Auto) 7.2 (2-11) % Eos % (Auto) 3.9 (0-4) % Baso % (Auto) 0.3 (0-2) % Lymph # (Auto) 1.7 (1.2-4.9) X10*3/uL [place] # (Auto) 0.5 (0.1-1.2) X10*3/uL Eos # (Auto) 0.3 (0.0-0.4) X10*3/uL Baso # (Auto) 0.0 (0.0-0.2) X10*3/uL Abs Immat Gran (auto) 0.01 (0.00-0.03) X10*3/uL Absolute Neuts (auto) 4.5 (2.0-8.3) x10*3/uL Absolute Nucleated RBC 0.000 (0.0-0.012) X10*3/uL Nucleated RBC % (auto) 0.0 (0.0-0.2) /100WBC Sodium 135 (135-145) mmol/L Potassium 5.2 H (3.3-5.1) mmol/L Chloride 107 (96-108) mmol/L Carbon Dioxide 25 (22-29) mmol/L Anion Gap 8 L (12-20) BUN 9 (9-16) mg/dL Creatinine 0.83 (0.5-1.4) mg/dL Estim Creat Clear Calc 89.3 Estimated GFR > 60 Random Glucose 105 (60-115) mg/dL Calcium 9.6 (8.4-10.2) mg/dL Total Bilirubin 0.8 (0.0-1.0) mg/dL AST 20 (5-31) U/L ALT 10 (0-31) U/L Alkaline Phosphatase 85 (39-117) U/L Ammonia 23 (13-55) umol/L Troponin I High Sens (<3.5-17.0) ng/L Total Protein 6.3 L (6.5-8.0) g/dL Albumin 3.8 (3.5-5.0) g/dL Ethyl Alcohol mg/dL COVID-19 ([facility]) (Negative) COVID-19 Clin Com 02/09/21 02/09/21 02/09/21 Range/Units 11:38 11:38 11:38 WBC (4.8-10.8) X10*3/uL RBC (4.20-5.50) X10*6/uL Hgb (12.0-16.0) g/dl Hct (37.0-47.0) % MCV (80.0-98.0) fL MCH (27.0-33.0) pg MCHC (31.0-35.0) g/dl RDW (11.0-16.0) % Plt Count (160-400) X10*3/uL MPV (9.4-12.3) fL Immature Gran % (Auto) (0.0-0.4) % Neut % (Auto) (45-73) % Lymph % (Auto) (20-40) % [place] % (Auto) (2-11) % Eos % (Auto) (0-4) % Baso % (Auto) (0-2) % Lymph # (Auto) (1.2-4.9) X10*3/uL [place] # (Auto) (0.1-1.2) X10*3/uL Eos # (Auto) (0.0-0.4) X10*3/uL Baso # (Auto) (0.0-0.2) X10*3/uL Abs Immat Gran (auto) (0.00-0.03) X10*3/uL Absolute Neuts (auto) (2.0-8.3) x10*3/uL Absolute Nucleated RBC (0.0-0.012) X10*3/uL Nucleated RBC % (auto) (0.0-0.2) /100WBC Sodium (135-145) mmol/L Potassium (3.3-5.1) mmol/L Chloride (96-108) mmol/L Carbon Dioxide (22-29) mmol/L Anion Gap (12-20) BUN (9-16) mg/dL Creatinine (0.5-1.4) mg/dL Estim Creat Clear Calc Estimated GFR Random Glucose (60-115) mg/dL Calcium (8.4-10.2) mg/dL Total Bilirubin (0.0-1.0) mg/dL AST (5-31) U/L ALT (0-31) U/L Alkaline Phosphatase (39-117) U/L Ammonia (13-55) umol/L Troponin I High Sens < 3.5 (<3.5-17.0) ng/L Total Protein (6.5-8.0) g/dL Albumin (3.5-5.0) g/dL Ethyl Alcohol < 10 mg/dL COVID-19 ([facility]) Negative (Negative) COVID-19 Clin Com See Note Critical Care Time Critical Care Time Critical Care Time: Yes Total Critical Care Time: 60 Attestation: Critical care secondary to evaluation of potential stroke with consideration for thrombolytic and/or endovascular therapy. Critical care time is separate from any other billable procedures. Discharge Plan Discharge Patient Disposition: Admitted As Inpatient Prescriptions: No Action cholecalciferol (vitamin D3) 25 mcg (1,000 unit) capsule 25 mcg PO DAILY Qty: 30 RF: 11 ascorbic acid (vitamin C) [Vitamin C] 500 mg tablet 1 tab PO DAILY RF: 0 pantoprazole 40 mg tablet,delayed release (DR/EC) 1 tab PO DAILY RF: 0 thyroid (pork) [Portia Thyroid] 30 mg tablet 1 tab PO BID RF: 0 cyanocobalamin (vitamin B-12) 1,000 mcg/mL Solution 1,000 mcg IM QMONTH RF: 0 lithium carbonate 300 mg Tablet Extended Release 600 mg PO BID Qty: 0 RF: 0 Latuda 20 mg Tablet 20 mg PO DAILY Qty: 0 RF: 0 trazodone 100 mg Tablet 100 mg PO BEDTIME PRN (Reason: Anxiety) RF: 0 oxycodone 5 mg tablet 10 mg PO QID RF: 0 calcium citrate 1,000 mg tablet 1,000 mg PO DAILY RF: 0 Bariatric Multivitamins 45 mg iron- 800 mcg-120 mcg capsule PO RF: 0 ondansetron HCl [Zofran] 4 mg tablet 4 mg PO Q6H PRN (Reason: nausea and vomiting) Qty: 30 RF: 1
[2021-02-09 11:43] LABS: MANUAL DIFF FLAG NO
[2021-02-09 11:45] LABS: Basophils Percent Auto 0.3 % (0-2); Eosinophils Absolute Auto 0.3 X10*3/uL (0.0-0.4); Eosinophils Percent Auto 3.9 % (0-4); Hematocrit 39.2 % (37.0-47.0); Hemoglobin 12.4 g/dl (12.0-16.0); Imm Gran Abs Auto 0.01 X10*3/uL (0.00-0.03); Imm Gran Pct Auto 0.1 % (0.0-0.4); Lymphocytes Absolute Auto 1.7 X10*3/uL (1.2-4.9); Lymphocytes Percent Auto 23.6 % (20-40); Mean Corpuscular HGB Conc 31.6 g/dl (31.0-35.0); Mean Corpuscular Hemoglobin 28.7 pg (27.0-33.0); Mean Corpuscular Volume 90.7 fL (80.0-98.0); Mean Platelet Volume 10.2 fL (9.4-12.3); Monocytes Absolute Auto 0.5 X10*3/uL (0.1-1.2); Monocytes Percent Auto 7.2 % (2-11); Neutrophils Absolute Auto 4.5 x10*3/uL (2.0-8.3); Neutrophils Percent Auto 64.9 % (45-73); Platelet Count 210 X10*3/uL (160-400); Red Blood Count 4.32 X10*6/uL (4.20-5.50)
[2021-02-09 11:50] LABS: Ammonia 23 umol/L (13-55)
[2021-02-09 11:56] LABS: Ethanol < 10 mg/dL
[2021-02-09 12:02] LABS: Alanine Aminotransferase 10 U/L (0-31); Albumin Level 3.8 g/dL (3.5-5.0); Alkaline Phosphatase 85 U/L (39-117); Anion Gap 8 (12-20); Aspartate Amino Transferase 20 U/L (5-31); Bilirubin Total 0.8 mg/dL (0.0-1.0); Blood Urea Nitrogen 9 mg/dL (9-16); Calcium 9.6 mg/dL (8.4-10.2); Carbon Dioxide 25 mmol/L (22-29); Chloride 107 mmol/L (96-108); Creatinine Clr Calc Pharmacy 89.3; Estimated Glomerular Filt Rate > 60; Glucose Random 105 mg/dL (60-115); Potassium 5.2 mmol/L (3.3-5.1); Sodium 135 mmol/L (135-145); Total Protein 6.3 g/dL (6.5-8.0)
[2021-02-09 12:03] LABS: Troponin-I High Sensitivity < 3.5 ng/L (<3.5-17.0)
[2021-02-09 12:09] LABS: COVID-19 Test Negative (Negative)
[2021-02-09 12:10] VITALS: BP 132/59; PULSE 58; RESP 13; O2SAT 93
[2021-02-09] MEDS: 0.9 % Sodium Chloride 500 ML IV (12:13)
[2021-02-09] MEDS: LORazepam 2 MG/ML VIAL 0.5 MG IVPUSH (12:14)
[2021-02-09 14:24] VITALS: BP 126/64; PULSE 58; RESP 20; O2SAT 100
[2021-02-09 15:15] LABS: Appearance Urine CLEAR; Color Urine YELLOW; Glucose Urine UA NEG (NEG); Leukocyte Esterase Urine NEG (NEG); Nitrite Urine NEG (NEG); Urine Blood NEG (NEG); Urine Ketones NEG (NEG); Urine Protein NEG (NEG-TRACE)
--- NOTE | 2021-02-09 15:16 | PM.IMHP ---
History of Present Illness Date of Service: 02/09/21 Chief Complaint: speech difficulity and possible aphasia 60-year-old female came to the hospital because of slurred speech and word-finding difficulty/aphasia. As per the ED physician patient has these symptoms from yesterday noon. Patient says that she is having the symptom from 1 week. she has had 1 week ago she had a bout of diarrhea and afterwards she was feeling that her speech is becoming abnormal and also having difficulty to find worse to talk. She has also says that she has some stressful situation going and the family with her mother and did not want to go into detail might also contributing to above. She denies any weakness or numbness or blurred vision or denies any chest pain or nausea or vomiting or fever or chills or cough or phlegm or shortness of breath. She says currently her symptoms are improving she could able to recall more when I talked to her but seems anxious and get very teary when she cannot recall something. she walked with the cooridor in Ed with me fine. Lab imaging and EKG Reviewed and interpreted personally: Bowdens level is 1.53. Mild hyperkalemia 5.2: otherwise sodium and renal function seems fine CT head- no new acute changes, old infarct. ekg pending Review of Systems Review of Systems: as above [facility] Medical History ADHD Anemia Anxiety and depression Back pain Bipolar disorder DDD (degenerative disc disease) GERD (gastroesophageal reflux disease) Hx of small bowel obstruction Hypercholesterolemia Iron deficiency anemia Lumbar disc herniation Obesity Osteoarthritis PTSD (post-traumatic stress disorder) Right rotator cuff tear Family History Father HTN (hypertension) DM (diabetes mellitus) Bladder cancer Prostate cancer Hyperlipidemia Mother No problems noted. Brother No problems noted. Sister No problems noted. Son No problems noted. Daughter No problems noted. Surgical History History of adjustable gastric banding History of removal of laparoscopic gastric banding device History of Theo-en-Y gastric bypass Hx laparoscopic cholecystectomy Hx of section Hx of laminectomy Hx of laparoscopic gastric banding Hx of tonsillectomy S/P panniculectomy Social History Household Members: Spouse, Children and Other Household Members Other:: dog and cat Housing: House Do you presently have visiting nurse or other home services: No Alcohol intake: never Patient Tobacco Use Status: Never used Tobacco Substance Use Type: Opiates service: No Current occupational status: disabled Sexual orientation: Straight/Heterosexual Meds Allergies Allergy/AdvReac Type Severity Reaction Status Date / Time amoxicillin [Amoxicillin] Allergy Severe HIVES, Verified 12/31/20 13:41 swelling Active Medications: Current Medications Aspirin (Aspirin Enteric Coated 81 Mg Tablet.Dr) 81 mg PO DAILY [facility] Heparin Sodium (Porcine) (Heparin Sodium,Porcine 5,000 Unit/Ml Vial) 5,000 unit SUBCUT Q8H [facility] Pharmacy Consult (Consult Rx Perform Med Rec) 1 each MISCELLANE ONCE PRN PRN Reason: Consult order Sodium Polystyrene Sulfonate (Sodium Polystyrene Sulfon/Sorb 15 Gm/60 Ml Oral.Susp) 15 gm PO ONCE ONE Stop: 02/09/21 15:10 Home Medications Medication Instructions Recorded Confirmed Last Taken Type trazodone 100 mg tablet 100 - 400 mg PO BEDTIME PRN 10/13/20 02/09/21 02/08/21 History ascorbic acid (vitamin C) 500 mg 1 tab PO DAILY 11/04/20 02/09/21 02/08/21 History tablet (Vitamin C) cyanocobalamin (vitamin B-12) 1,000 mcg IM QMONTH 11/04/20 02/09/21 01/21/21 History 1,000 mcg/mL injection solution pantoprazole 40 mg tablet,delayed 1 tab PO DAILY 11/04/20 02/09/21 02/08/21 History release thyroid (pork) 30 mg tablet 1 tab PO BID 11/04/20 02/09/21 02/08/21 History ([place] Thyroid) calcium citrate 1,000 mg tablet 1,000 mg PO DAILY 11/27/20 02/09/21 02/08/21 History bvpdabdg-xyhepegv-ycuz 45 mg-folic 1 cap PO DAILY 11/27/20 02/09/21 02/08/21 History acid 800 mcg-vit K 120 mcg capsule (Bariatric Multivitamins) oxycodone 5 mg tablet 10 mg PO QID PRN tab 11/27/20 02/09/21 02/08/21 History clindamycin HCl 300 mg capsule 300 mg PO Q8H 02/09/21 02/09/21 02/08/21 History lurasidone 20 mg tablet (Latuda) 40 mg PO BEDTIME 02/09/21 02/09/21 02/08/21 History thyroid (pork) 15 mg tablet 15 mg PO BID 02/09/21 02/09/21 02/08/21 History ([place] Thyroid) Physical Exam Vital Signs and Narrative: Vital Signs: Last Vital Signs Temp 98.5 F 02/09/21 11:13 Pulse 58 02/09/21 14:24 Resp 20 02/09/21 14:24 BP 126/64 02/09/21 14:24 Pulse Ox 100 02/09/21 14:24 BMI result Body Mass Index 32.3 Physical exam: Appearance: Alert.? Oriented X3.? not in distress.? Eyes: Pupils equal, round and reactive to light.? Sclera nonicteric.? ENT: Pharynx normal.? Moist mucous membranes. cvs: rrr, [id number] , no murmur res: clear to auscultation ,no rhonchii or wheezing abd: no rebound or guarding ,nt, bs present. ext pulses present , no cyanosis neuro: axo3 speech seems more pressured than slurred ? aphasia -but she gets very teary , she says aphasia seems improving No pronator drift, no facial drooping no nystagmus noted finger to nose test also normal patient walked with me in the corridor without any Gait instability. Results Labs CBC and Chem 7: 02/10/21 06:54 02/10/21 06:54 Labs: Laboratory Results - last 24 hr 02/09/21 02/09/21 02/09/21 11:38 11:38 11:38 MCV 90.7 MCH 28.7 MCHC 31.6 RDW 14.0 Plt Count 210 MPV 10.2 Immature Gran % (Auto) 0.1 Neut % (Auto) 64.9 Lymph % (Auto) 23.6 [place] % (Auto) 7.2 Eos % (Auto) 3.9 Baso % (Auto) 0.3 Lymph # (Auto) 1.7 [place] # (Auto) 0.5 Eos # (Auto) 0.3 Baso # (Auto) 0.0 Abs Immat Gran (auto) 0.01 Absolute Neuts (auto) 4.5 Absolute Nucleated RBC 0.000 Nucleated RBC % (auto) 0.0 Anion Gap 8 L Estim Creat Clear Calc 89.3 Estimated GFR > 60 Random Glucose 105 Calcium 9.6 Total Bilirubin 0.8 AST 20 ALT 10 Alkaline Phosphatase 85 Ammonia 23 Troponin I High Sens Total Protein 6.3 L Albumin 3.8 Ethyl Alcohol COVID-19 ([facility]) COVID-19 Clin Com 02/09/21 02/09/21 02/09/21 11:38 11:38 11:38 MCV MCH MCHC RDW Plt Count MPV Immature Gran % (Auto) Neut % (Auto) Lymph % (Auto) [place] % (Auto) Eos % (Auto) Baso % (Auto) Lymph # (Auto) [place] # (Auto) Eos # (Auto) Baso # (Auto) Abs Immat Gran (auto) Absolute Neuts (auto) Absolute Nucleated RBC Nucleated RBC % (auto) Anion Gap Estim Creat Clear Calc Estimated GFR Random Glucose Calcium Total Bilirubin AST ALT Alkaline Phosphatase Ammonia Troponin I High Sens < 3.5 Total Protein Albumin Ethyl Alcohol < 10 COVID-19 ([facility]) Negative COVID-19 Clin Com See Note Imaging Radiologist's Impressions: Impressions Chest X-Ray 02/09/21 11:50 IMPRESSION: No evidence for acute disease in the chest. Head CT 02/09/21 12:14 IMPRESSION: Old left basal ganglia lacunar infarct and nonspecific periventricular white matter disease. Findings are similar to October 2020 exam. Assessment and Plan (1) Bowdens toxicity: Status: Acute (2) Anxiety: Status: Acute (3) Slurred speech: Status: Acute 1. Possible tia vs cva vs related to elevated lithium levels moniter on tele asa , lipid and lithium levels in am. Neurology evaluation, MRI, PT OT speech. 2. Elevated lithium level: had diarrhea a week ago,? might contributing to neurological symptoms also. EKG -flat to inverse st in lead 3 and avf trops neg, moniitor on tele gentle hydration also added TSH levels hold lithium, echo added due to ekg changes . please repeat ekg in am may need cardio eval if ekg in am abnormal or new chest pain or echo changes. d/w Dr pang psych -hold lithium -check levels in am, consider psych input before discharge -for further use of lithium. 3 hx of adhd, Anxiety, depression: hold lithium, continue trazodone and Latuda 4. GERD: Continue omeprazole. 5. hypothyroidism: Continue thyroid replacement DVT prophylaxis: With subQ heparin above management discussed with patient in detail length she understand and in agreement with above plan- time spent 70 minute. Quality Stroke Does the patient have a stroke diagnosis?: No VTE Prior VTE?: No VTE Risk Level:: Medical - moderate - high VTE Device Contraindication: N/A - Device Ordered VTE Drug Contraindication: N/A - Med Ordered
[2021-02-09 15:21] LABS: Lithium 1.53 mmol/L (0.60-1.20)
--- NOTE | 2021-02-09 15:26 | PHA.MEDREC ---
Pharmacy Consult ? Medication Reconciliation Pharmacy has completed the medication reconciliation.
[2021-02-09] MEDS: Aspirin Enteric Coated 81 MG TABLET.DR PO (16:07)
[2021-02-09] MEDS: Heparin Sodium,Porcine 5,000 UNIT/ML VIAL 5000 UNIT SUBCUT ×2 (16:07→22:31)
[2021-02-09] MEDS: Sodium Polystyrene Sulfon/Sorb 15 GM/60 ML ORAL.SUSP PO (16:07)
[2021-02-09] MEDS: Lactated Ringers 1,000 ML 80 ML IVCONT (16:08)
[2021-02-09 16:21] LABS: Thyroid Stimulating Hormone 8.19 uIU/mL (0.32-4.0)
--- NOTE | 2021-02-09 16:33 | MHC.SP.ADU ---
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 Patient reported difficulty with word finding, feeling a little off balance, and very shakey/tremulous. Patient is being worked up in the ED for concern of possible stroke versus other metabolic abnormalities. Chest x-ray showed no evidence for acute disease in the chest. Head CT showed, old left basal ganglia lacunar infarct and nonspecific periventricular white matter disease. Medical History: Other: ADHD, anemia, anxiety and depression, back pain, bipolar disorder, DDD, GERD, small bowel obstruction, hypercholesterolemia, lumbar disc herniation, obesity, osteoarthritis, PTSD, right rotator cuff tear, gastric bypass surgery with f-u gastric band surgery multiple years ago Swallowing History: Dysphagia Specific: Risk of Aspiration Comments: Pre-eval Risk for Aspiration: Neurological Condition Pre-evaluation Dietary Consistencies: Regular Pre-eval Liquid Intake: Thin Pre-eval Medication Intake: Whole with Liquid Reported Speech, Language, Cognition difficulties: Cognition, Speaking Assessment Speech Production: Clinical Impression: Intact Observations: Patient was 100% intelligible. Patient spoke with appropriate rate of speech and noted articulatory precision. Informal Voice Assessment: Voice Loudness: Normal Voice Nasal Resonance: Normal Voice Oral Resonance: Normal Voice Phonatory-based Quality: Normal Voice Pitch: Normal Clinical Impression: Intact Clinicial Observations: Vocal quality deemed to be WFL for patient's age and gender. Tests of Speech & Lang Adults: BNT Clinical Impression: Impaired Observations: Patient presents with very mild anomic aphasia at the conversational level. Patient correctly named 13 of 15 items on the BNT. Patient named chandelier for target word tripod, and squirrel for target word grindstone. She was able to self-correct when given a choice of 4 written responses. Note delay in word recall. Patient complains of difficulty finding words. Patient was administered an informal language screening. Intact auditory word recognition, sentence completion, word/sentence repetition. Patient correctly responded to responsive naming questions and yes/no questions. She followed single step commands and multistep/complex commands presented to her verbally without difficulty. Patient spoke using complete sentences with appropriate syntactic structure and use of semantics. Tests of Cognition: Clinical Impression: Impaired Observations: Patient was able to provide her current location, the month, day of the week, age, address, current season, and time. Patient exhibited difficulty recalling the current year, and provided the incorrect year when stating her date of . She was unaware of this error. Throughout our screening, patient often requested repetition of task instructions. When alf through a task, patient often forgot what she was doing and appeared very confused when HIGH SCHOOL TEACHER continued providing prompts or asking questions. Patient was very distracted by other stimuli in the environment. Patient was able to repeat number series up to 5 digits, but was unable to repeat 6- and 7- digit series (phone numbers). When asked to describe her concerns surrounding her speech, she explained that she was not sure what was wrong, but something felt different. Patient did mention she has baseline ADHD. Impressions and Recommendations Summary: Impact on Daily Function/Activity Limitations: Daily Activities: Mild Interpersonal Interactions: Mild Education: Employment: Community: Mild Prognosis for Improvement: Fair Recommendation for Speech Therapy: Further Testing Needed Plan for further testing of cognitive linguistic skills (CLQT). [place] Stitcher Clinican/Clinical Fellow: Yes: Nilda Valera Supervisory Statement: N/A Speech Language Pathologist: Addie Vicente M.A., [facility]-HIGH SCHOOL TEACHER
--- NOTE | 2021-02-09 17:01 | PC.NURSE ---
pt. alert and oriented x 2. Pt. confused to the year. Mild expressive aphasia. Pupils equal and reactive. No facial asymmetries. Speech is clear. TOngue midline. no pronator drift. Strength of upper and lower extremities equal bilaterally. Mildly anxious
--- NOTE | 2021-02-09 17:36 | PC.NURSE ---
Report to beena MONTES in overflow unit
--- NOTE | 2021-02-09 18:09 | PC.NURSE ---
Pt to MRI at this time with medical administrative technician
[2021-02-09 18:29] LABS: Lithium 1.42 mmol/L (0.60-1.20)
[2021-02-09 18:35] LABS: Acetaminophen LAB < 1 mcg/mL (<30); Salicylate < 5.0 mg/dL (15-30)
[2021-02-09 20:00] VITALS: BP 145/62; PULSE 53; RESP 22; O2SAT 97
[2021-02-09] MEDS: LORazepam 0.5 MG TABLET PO (21:23)
[2021-02-09] MEDS: 0.9 % Sodium Chloride 1,000 ML 200 ML IVCONT (21:35)
[2021-02-09 22:00] VITALS: BP 136/54; PULSE 59; RESP 16; O2SAT 98
[2021-02-09 22:19] LABS: Lithium 1.37 mmol/L (0.60-1.20)
[2021-02-09] MEDS: Thyroid,Pork 30 MG TABLET 45 MG PO (22:30)
[2021-02-09] MEDS: Lurasidone HCl 40 MG TABLET PO (22:31)
--- NOTE | 2021-02-09 22:54 | PC.NURSE ---
multiple calls back and forth with hospitalist.patient is concerned about home medications. hosptialst placing some orders in the computer, spoke with pharmacy planning to hold other medications when speaking with the hospitlist themselved. patient is alert answering questions appropriately, neuros intact.
[2021-02-10] VITALS (7 sets, daily range): BP systolic 133–157; BP diastolic 60–78; PULSE 57–63; RESP 16–20; TEMP 36.5–37; O2SAT 98–100
[2021-02-10] MEDS: oxyCODONE HCl Immed Release 5 MG TABLET 10 MG PO ×3 (01:07→14:45)
[2021-02-10 01:26] LABS: Lithium 1.26 mmol/L (0.60-1.20)
[2021-02-10 02:12] LABS: Lithium 1.25 mmol/L (0.60-1.20)
--- NOTE | 2021-02-10 07:30 | CA_ITS ---
Transthoracic Echocardiogram Patient (Last, First, Middle): Norma Cuellar J Gender: Female Date of : 1960 Age: 60 Procedure Date: 02/10/2021 Procedure Type: Transthoracic Echocardiogram Location: ER Height: 175.26 cm Weight: 64.86 kg BSA: 1.79 m2 Heart Rate: bpm BP: 143 / 78 mmHg Termite Control Servicer: Referring MD: Latoya Sanchez MD Symptoms: ekg abnormal.t wave inversion inferior leads. Study Quality: Good ECG Rhythm: Sinus Conclusions: - The left ventricular systolic function is normal. The visually estimated ejection fraction is between 60-65%. - There is mild to moderate tricuspid valve regurgitation. Findings Left Ventricle Normal left ventricular cavity size. There is normal left ventricular wall thickness. The left ventricular systolic function is normal. The visually estimated ejection fraction is between 60-65%. There is no evidence of regional wall motion abnormalities. Diastolic function is normal for age. Right Ventricle Normal right ventricular cavity size and systolic function. Atria The left atrium is mildly dilated. The right atrium is normal in size. Aortic Valve There is a normal trileaflet aortic valve. There is no aortic valve stenosis. There is no aortic valve regurgitation. Mitral Valve The mitral valve appears normal. There is trace mitral valve regurgitation. There is no mitral valve stenosis. Pulmonic Valve The pulmonic valve was not well visualized. Tricuspid Valve Normal tricuspid valve structure. There is mild to moderate tricuspid valve regurgitation. The pulmonary artery systolic pressure is normal. Great Vessels The aortic annulus, sinuses of valsalva, and asc aorta are normal in size. Venous The inferior vena cava is normal in size and collapses greater than 50% with inspiration. Pericardium/Pleural There is no evidence of pericardial effusion. Prior Study Comparison No prior study available for comparison. Measurements 2D Linear Measurements IVSd: 1.06 0.6-0.9/0.6-1.0 cm LVIDd: 4.56 3.9-5.3/4.2-5.9 cm LVIDd Index: 2.55 2.4-3.2/2.2-3.1 cm/m2 LVIDs: 2.58 2.0-3.6 cm LVPWd: 1.15 0.7-1.1 cm Ao Root: 3.00 2.1-3.5 cm LA Diam: 3.70 2.7-3.8/3.0-4.0 cm LAIDs Index: 2.07 1.5-2.3 cm/m2 LV Mass: 224.09 67-162/88-224 g LV Mass Index: 125.19 43-95/49-115 g/m2 LVOT Diam: 2.30 3.0+(-)1.3 cm Mitral Valve MV Pk E: 1.03 MV PK A: 0.92 MV Decel Time: 197.00 E/A: 1.10 E'Lateral: 12.80 E'Medial: 10.10 E/E' Med: 10.20 E/E' Lat: 8.00 PHT: 58.00 MVA PHT: 3.79 Decel Alcorn: 5.22 Aortic Valve AoV Pk Francis: 1.39 AoV Mn Francis: 0.94 AoV VTI: 0.35 AoV Pk Grad: 8.00 Aov Mn Grad: 4.00 SHANNAN Cont.VTI: 3.74 LVOT LVOT Pk Francis: 1.29 LVOT Mn Francis: 0.77 LVOT VTI: 0.31 LVOT Pk Grad: 7.00 LVOT Mn Grad: 3.00 LVOT Diam: 2.30 LVOT Area: 4.15 Diastolic Function MV Pk E: 1.03 MV Pk A: 0.92 E/A: 1.10 E'Medial: 10.10 E/E' Med: 10.20 E' Laterial: 12.80 E/E' Lat: 8.00 Right Ventricle TAPSE (mm): 27.00 TVS' Francis: 13.00 Tricuspid Valve TR Pk Francis: 3.06 TR Pk Grad: 37.00 Great Vessels Aorta Ao Root-2D: 3.00 2.0-3.7 cm Ao Asc: 3.40 2.1-3.4 cm Pulmonary Valve PV Pk Francis: 1.82 Peak PV Grad: 13.00 Updated in Other Vendor System with Status of Final Ariel Kong MD electronically signed on 02/10/2021 4:10:33 PM with status of Final
[2021-02-10 07:40] LABS: Hematocrit 37.8 % (37.0-47.0); PLT CLUMP 1; SCAN SMEAR FLAG 1
[2021-02-10 07:42] LABS: Basophils Percent Auto 0.4 % (0-2); Eosinophils Absolute Auto 0.2 X10*3/uL (0.0-0.4); Hemoglobin 11.9 g/dl (12.0-16.0); Imm Gran Abs Auto 0.01 X10*3/uL (0.00-0.03); Imm Gran Pct Auto 0.1 % (0.0-0.4); Lymphocytes Absolute Auto 2.1 X10*3/uL (1.2-4.9); Lymphocytes Percent Auto 26.9 % (20-40); MANUAL DIFF FLAG SCAN; Mean Corpuscular HGB Conc 31.5 g/dl (31.0-35.0); Mean Corpuscular Hemoglobin 28.7 pg (27.0-33.0); Mean Corpuscular Volume 91.3 fL (80.0-98.0); Monocytes Absolute Auto 0.6 X10*3/uL (0.1-1.2); Monocytes Percent Auto 7.6 % (2-11); Neutrophils Absolute Auto 4.7 x10*3/uL (2.0-8.3); Red Blood Count 4.14 X10*6/uL (4.20-5.50)
[2021-02-10 08:04] LABS: Cholesterol 195 mg/dL; HDL Cholesterol 51 mg/dL; LDL Cholesterol Calculated 119 mg/dl; Triglycerides 125 mg/dL
[2021-02-10 08:11] LABS: Anion Gap 8 (12-20); Blood Urea Nitrogen 9 mg/dL (9-16); Calcium 9.6 mg/dL (8.4-10.2); Carbon Dioxide 25 mmol/L (22-29); Chloride 109 mmol/L (96-108); Creatinine Clr Calc Pharmacy 97.6; Estimated Glomerular Filt Rate > 60; Glucose Random 109 mg/dL (60-115); Potassium 4.2 mmol/L (3.3-5.1); Sodium 138 mmol/L (135-145)
[2021-02-10 08:14] LABS: White Blood Count 7.6 X10*3/uL (4.8-10.8)
[2021-02-10 08:19] LABS: SLIDE REVIEW VERIFIED
[2021-02-10 08:23] LABS: Lithium 1.13 mmol/L (0.60-1.20)
[2021-02-10] MEDS: Aspirin Enteric Coated 81 MG TABLET.DR PO (08:39)
[2021-02-10] MEDS: Heparin Sodium,Porcine 5,000 UNIT/ML VIAL 5000 UNIT SUBCUT ×2 (08:39→14:45)
[2021-02-10] MEDS: Thyroid,Pork 30 MG TABLET 45 MG PO (08:40)
--- NOTE | 2021-02-10 08:46 | PC.NURSE ---
pt alert and oriented, skin pwd, respirations even and unlabored, pt reports pain in her right shoulder/back/headache pain at 10/10. sinus sparkle on the monitor
--- NOTE | 2021-02-10 10:55 | MHC.CM.PN ---
Addendum entered by Kaylie Allen 02/10/21 11:17: Patient received Pfizer vacines on 04/22, 05/14 and 01/27. Original Note: Met with patient in regards to discharge planning. Patient lives with her , ambulates independently and had no services prior to coming to the hospital. PCP verified. Patient received Pfizer vaccine. HCP completed, signed and witnessed. Original given to patient. Copy placed in chart. Patient's family will transport her home when medically stable. Continue to monitor for d/c needs.
--- NOTE | 2021-02-10 11:43 | P.DS_ITS ---
DS: Providers Provider Date of Service: 02/10/21 Date of admission: 02/09/21 14:54 Primary care physician: Driss Santiago MD Consults: 02/09/21 14:54 Consult to Neurology Routine Consulting Provider: [facility] Reason for consultation: cva vs tia Has provider been notified: No DS: Summary Hospital Course Hospital Course: Chief Complaint: speech difficulity and possible aphasia ?60-year-old female? came to the hospital because of slurred speech and word- finding difficulty/aphasia. ? As per the ED physician patient has these symptoms from yesterday noon.? Patient says that she is having the symptom from 1 week. ?she has had 1 week ago she had a bout of diarrhea and afterwards she was feeling that her speech is becoming abnormal and also having difficulty to find worse to talk. ? She has also says that? she has some stressful situation going and the family with her mother and did not want to go into detail might also contributing to above. ? She denies any weakness or numbness or? blurred vision or? denies any chest pain or nausea or vomiting or fever or chills or cough or phlegm or? shortness of breath. ? She says currently her symptoms are improving she could able to recall more when I talked to her but seems anxious and get very teary when she cannot recall something. ?she walked with the cooridor in Ed with me fine. ? Lab imaging and EKG? Reviewed and interpreted personally: ? [place] level is 1.53. ? Mild hyperkalemia 5.2:? otherwise sodium and renal function seems fine ?CT head- no new acute changes, old infarct. ekg pending Hosptial course: Patient presentws with difficulty with speech and some unsteady gait as well. Initially there was concern of of stroke or tia, work up with CT of head, MRI was negative for acute stroke. She was noted to have toxic lithium level of 1.53 which was likely causing her symptoms. She has been hydrated with IVF and lithium level have gradually come down presently at 1.13, she takes [place] 900 mg daily. I left message for the prescriber Dr. Parth Villagomez to discuss med adjustment. Patient is inclined not take take the meds anymore Time Spent with Patient Time attestation: Total time spent providing and/or coordinating discharge services: Discharge coordination time: Greater than 30 minutes Quality: Stroke Does the patient have a stroke diagnosis?: No Physical Exam Verdana 4l Vital Signs: Verdana 4d Verdana 4d Vital Signs: Verdana 4d Verdana 4Bd Last Vital Signs Verdana 4d Spring Maker New 4d Spring Maker New 4d Temp 97.7 F 02/10/21 04:00 Spring Maker New 4d Pulse 59 02/10/21 08:36 Spring Maker NewNew 4d Resp 18 02/10/21 08:36 BP 137/78 02/10/21 08:36 Pulse Ox 100 02/10/21 08:36 BMI result Body Mass Index 32.3 DS: Data Data Completed and Pending Labs on day of discharge: Laboratory Results - last 24 hr 02/09/21 02/09/21 02/09/21 11:38 11:38 11:38 WBC 7.0 RBC 4.32 Hgb 12.4 Hct 39.2 MCV 90.7 MCH 28.7 MCHC 31.6 RDW 14.0 Plt Count 210 MPV 10.2 Immature Gran % (Auto) 0.1 Neut % (Auto) 64.9 Lymph % (Auto) 23.6 [place] % (Auto) 7.2 Eos % (Auto) 3.9 Baso % (Auto) 0.3 Lymph # (Auto) 1.7 [place] # (Auto) 0.5 Eos # (Auto) 0.3 Baso # (Auto) 0.0 Abs Immat Gran (auto) 0.01 Absolute Neuts (auto) 4.5 Absolute Nucleated RBC 0.000 Nucleated RBC % (auto) 0.0 Smear Tech's Comments Sodium 135 Potassium 5.2 H Chloride 107 Carbon Dioxide 25 Anion Gap 8 L BUN 9 Creatinine 0.83 Estim Creat Clear Calc 89.3 Estimated GFR > 60 Random Glucose 105 Calcium 9.6 Total Bilirubin 0.8 AST 20 ALT 10 Alkaline Phosphatase 85 Ammonia 23 Troponin I High Sens Total Protein 6.3 L Albumin 3.8 Triglycerides Cholesterol LDL Cholesterol, Calc HDL Cholesterol TSH 8.19 H Urine Color Urine Appearance Urine pH Ur Specific [place] Urine Protein Urine Glucose (UA) Urine Ketones Urine Blood Urine Nitrite Ur Leukocyte Esterase Salicylates Acetaminophen [place] Ethyl Alcohol COVID-19 ([facility]) COVID-19 Clin Com 02/09/21 02/09/21 02/09/21 11:38 11:38 11:38 WBC RBC Hgb Hct MCV MCH MCHC RDW Plt Count MPV Immature Gran % (Auto) Neut % (Auto) Lymph % (Auto) [place] % (Auto) Eos % (Auto) Baso % (Auto) Lymph # (Auto) [place] # (Auto) Eos # (Auto) Baso # (Auto) Abs Immat Gran (auto) Absolute Neuts (auto) Absolute Nucleated RBC Nucleated RBC % (auto) Smear Tech's Comments Sodium Potassium Chloride Carbon Dioxide Anion Gap BUN Creatinine Estim Creat Clear Calc Estimated GFR Random Glucose Calcium Total Bilirubin AST ALT Alkaline Phosphatase Ammonia Troponin I High Sens < 3.5 Total Protein Albumin Triglycerides Cholesterol LDL Cholesterol, Calc HDL Cholesterol TSH Urine Color Urine Appearance Urine pH Ur Specific [place] Urine Protein Urine Glucose (UA) Urine Ketones Urine Blood Urine Nitrite Ur Leukocyte Esterase Salicylates Acetaminophen [place] Ethyl Alcohol < 10 COVID-19 ([facility]) Negative GoTableID-Unique Property See Note 02/09/21 02/09/21 02/09/21 15:05 15:05 18:12 WBC RBC Hgb Hct MCV MCH MCHC RDW Plt Count MPV Immature Gran % (Auto) Neut % (Auto) Lymph % (Auto) [place] % (Auto) Eos % (Auto) Baso % (Auto) Lymph # (Auto) [place] # (Auto) Eos # (Auto) Baso # (Auto) Abs Immat Gran (auto) Absolute Neuts (auto) Absolute Nucleated RBC Nucleated RBC % (auto) Smear Tech's Comments Sodium Potassium Chloride Carbon Dioxide Anion Gap BUN Creatinine Estim Creat Clear Calc Estimated GFR Random Glucose Calcium Total Bilirubin AST ALT Alkaline Phosphatase Ammonia Troponin I High Sens Total Protein Albumin Triglycerides Cholesterol LDL Cholesterol, Calc HDL Cholesterol TSH Urine Color YELLOW Urine Appearance CLEAR Urine pH 7.0 Ur Specific [place] 1.010 Urine Protein NEG Urine Glucose (UA) NEG Urine Ketones NEG Urine Blood NEG Urine Nitrite NEG Ur Leukocyte Esterase NEG Salicylates Acetaminophen [place] 1.53 H* 1.42 H Ethyl Alcohol COVID-19 ([facility]) COVID-Unique Property 02/09/21 02/09/21 02/09/21 18:12 19:43 21:55 WBC RBC Hgb Hct MCV MCH MCHC RDW Plt Count MPV Immature Gran % (Auto) Neut % (Auto) Lymph % (Auto) [place] % (Auto) Eos % (Auto) Baso % (Auto) Lymph # (Auto) [place] # (Auto) Eos # (Auto) Baso # (Auto) Abs Immat Gran (auto) Absolute Neuts (auto) Absolute Nucleated RBC Nucleated RBC % (auto) Smear Tech's Comments Sodium Potassium Chloride Carbon Dioxide Anion Gap BUN Creatinine Estim Creat Clear Calc Estimated GFR Random Glucose Calcium Total Bilirubin AST ALT Alkaline Phosphatase Ammonia Troponin I High Sens Total Protein Albumin Triglycerides Cholesterol LDL Cholesterol, Calc HDL Cholesterol TSH Urine Color Urine Appearance Urine pH Ur Specific [place] Urine Protein Urine Glucose (UA) Urine Ketones Urine Blood Urine Nitrite Ur Leukocyte Esterase Salicylates < 5.0 L Acetaminophen < 1 [place] 1.40 H 1.37 H Ethyl Alcohol COVID-19 ([facility]) Do It Original 02/10/21 02/10/21 02/10/21 00:31 02:00 06:54 WBC 7.6 RBC 4.14 L Hgb 11.9 L Hct 37.8 MCV 91.3 MCH 28.7 MCHC 31.5 RDW 14.0 Plt Count TNP MPV Not Reportable Immature Gran % (Auto) 0.1 Neut % (Auto) 62.0 Lymph % (Auto) 26.9 [place] % (Auto) 7.6 Eos % (Auto) 3.0 Baso % (Auto) 0.4 Lymph # (Auto) 2.1 [place] # (Auto) 0.6 Eos # (Auto) 0.2 Baso # (Auto) 0.0 Abs Immat Gran (auto) 0.01 Absolute Neuts (auto) 4.7 Absolute Nucleated RBC 0.000 Nucleated RBC % (auto) 0.0 Smear Tech's Comments VERIFIED Sodium Potassium Chloride Carbon Dioxide Anion Gap BUN Creatinine Estim Creat Clear Calc Estimated GFR Random Glucose Calcium Total Bilirubin AST ALT Alkaline Phosphatase Ammonia Troponin I High Sens Total Protein Albumin Triglycerides Cholesterol LDL Cholesterol, Calc HDL Cholesterol TSH Urine Color Urine Appearance Urine pH Ur Specific [place] Urine Protein Urine Glucose (UA) Urine Ketones Urine Blood Urine Nitrite Ur Leukocyte Esterase Salicylates Acetaminophen [place] 1.26 H 1.25 H Ethyl Alcohol COVID-19 ([facility]) COVKosmix 02/10/21 02/10/21 02/10/21 06:54 06:54 06:54 WBC RBC Hgb Hct MCV MCH MCHC RDW Plt Count MPV Immature Gran % (Auto) Neut % (Auto) Lymph % (Auto) [place] % (Auto) Eos % (Auto) Baso % (Auto) Lymph # (Auto) [place] # (Auto) Eos # (Auto) Baso # (Auto) Abs Immat Gran (auto) Absolute Neuts (auto) Absolute Nucleated RBC Nucleated RBC % (auto) Smear Tech's Comments Sodium 138 Potassium 4.2 Chloride 109 H Carbon Dioxide 25 Anion Gap 8 L BUN 9 Creatinine 0.76 Estim Creat Clear Calc 97.6 Estimated GFR > 60 Random Glucose 109 Calcium 9.6 Total Bilirubin AST ALT Alkaline Phosphatase Ammonia Troponin I High Sens Total Protein Albumin Triglycerides 125 Cholesterol 195 LDL Cholesterol, Calc 119 HDL Cholesterol 51 TSH Urine Color Urine Appearance Urine pH Ur Specific [place] Urine Protein Urine Glucose (UA) Urine Ketones Urine Blood Urine Nitrite Ur Leukocyte Esterase Salicylates Acetaminophen [place] 1.13 Ethyl Alcohol COVID-19 ([facility]) COVID-19 Clin Com Discharge Plan Discharge Anticipated Discharge Date/Time: 02/10/21 11:34 Patient Disposition: Home, Self-Care Discharge Diagnosis: [place] toxicity with ataxia that has now resolved Referrals: Po,Driss Mñuiz MD [Primary Care Provider] - 1 Week Discharge Medications: Continued cholecalciferol (vitamin D3) 25 mcg (1,000 unit) capsule 25 mcg PO DAILY Qty: 30 RF: 11 ascorbic acid (vitamin C) [Vitamin C] 500 mg tablet 1 tab PO DAILY RF: 0 pantoprazole 40 mg tablet,delayed release (DR/EC) 1 tab PO DAILY RF: 0 thyroid (pork) [Epes Thyroid] 30 mg tablet 1 tab PO BID RF: 0 cyanocobalamin (vitamin B-12) 1,000 mcg/mL Solution 1,000 mcg IM QMONTH RF: 0 trazodone 100 mg Tablet 100 - 400 mg PO BEDTIME PRN (Reason: Anxiety) RF: 0 clindamycin HCl 300 mg capsule 300 mg PO Q8H RF: 0 thyroid (pork) [Epes Thyroid] 15 mg tablet 15 mg PO BID RF: 0 Latuda 20 mg tablet 40 mg PO BEDTIME RF: 0 oxycodone 5 mg tablet 10 mg PO QID PRN (Reason: Pain) RF: 0 calcium citrate 1,000 mg tablet 1,000 mg PO DAILY RF: 0 Bariatric Multivitamins 45 mg iron- 800 mcg-120 mcg capsule 1 cap PO DAILY RF: 0 ondansetron HCl [Zofran] 4 mg tablet 4 mg PO Q6H PRN (Reason: nausea and vomiting) Qty: 30 RF: 1 Discontinued lithium carbonate 300 mg tablet extended release 900 mg PO BEDTIME RF: 0 Discharge Orders: Discharge Order (Routine); Ordered 02/10/21 Ordered By: Pastor Costello Diet: advance to usual diet Activity on Discharge: As tolerated Stand Alone Forms: Patient Portal Discharge page Care Plan Goals: Prevent toxic lithium level again Health Concerns: [place] toxiciy Plan of Treatment: Do not take [place], call your therapist for follow up Assessment: as above
--- NOTE | 2021-02-10 13:05 | PC.NURSE ---
pt is reporting feeling anxious and is requesting something for anxiety/sleep, margarette calloway
--- NOTE | 2021-02-10 15:36 | MHC.SP.ADU ---
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 Patient reported difficulty with word finding, feeling a little off balance, and very shakey/tremulous. Patient is being worked up in the ED for concern of possible stroke versus other metabolic abnormalities. Chest x-ray showed no evidence for acute disease in the chest. Head CT showed, old left basal ganglia lacunar infarct and nonspecific periventricular white matter disease. Medical History: Other: ADHD, anemia, anxiety and depression, back pain, bipolar disorder, DDD, GERD, small bowel obstruction, hypercholesterolemia, lumbar disc herniation, obesity, osteoarthritis, PTSD, right rotator cuff tear, gastric bypass surgery with f-u gastric band surgery multiple years ago Medication List: Recent Hospitalizations: Respiratory Needs: Patient Orientation: Social History: Reported Speech, Language, Cognition difficulties: Mild Anomic Aphasia Speaking Comments: Prior to admission, Pt reports being highly disfluent. This has resolved since admission. Assessment Speech Production: Clinical Impression: Intact Observations: Patient was 100% intelligible. Patient spoke with appropriate rate of speech and noted articulatory precision. Tests of Speech & Lang Adults: BNT Clinical Impression: Impaired Observations: Patient presents with very mild anomic aphasia at the conversational level. Patient correctly named 13 of 15 items on the BNT. Patient named chandelier for target word tripod, and squirrel for target word [place]. She was able to self-correct when given a choice of 4 written responses. Note delay in word recall. Patient complains of difficulty finding words. Patient was administered an informal language screening. Intact auditory word recognition, sentence completion, word/sentence repetition. Patient correctly responded to responsive naming questions and yes/no questions. She followed single step commands and multistep/complex commands presented to her verbally without difficulty. Patient spoke using complete sentences with appropriate syntactic structure and use of semantics. On 02/10/21: Administered CLQT. On assessment today, Pt presents with all cognitive domains WNL. Pt has pre-existing ADD issues at baseline, behaviors associated with ADD were noted during testing, particularly on language based tests, however behavior did not deter performance on test. Pt is at baseline with no evident disruption of cognitive/linguistic skills. Tests of Cognition: Clinical Impression: PT at baseline Observations: On evaluation 02/10/21 Pt presents with all domains WNL. Impressions and Recommendations Summary: Impact on Daily Function/Activity Limitations: Daily Activities: Mild Interpersonal Interactions: Mild Education: Employment: Community: Mild Prognosis for Improvement: Excellent Comment: Recommendation for Speech Therapy: Recommend D/C Speech Therapy. No further services needed. : Patient Education: Completed: Yes Patient/Caregiver Education: Described Results of Evaluation Patient expressed understanding of evaluation Comments/Barriers to Learning: Global Cto Clinican/Clinical Fellow: No Supervisory Statement: N/A Speech Language Pathologist: Vanita Martinez M.A., CCC-GENERAL UTILITY MACHINE OPERATOR
--- NOTE | 2021-02-10 17:12 | PC.NURSE ---
pt is currently requesting zofran for nausea while dr angeles alvarez aware
[2021-02-10] MEDS: Ondansetron ODT 4 MG TAB.RAPDIS TRANSLINGU (17:29)
--- NOTE | 2021-02-10 18:09 | PM.NEUROCN ---
History of Present Illness Data of Consult Service Date: 02/10/21 Primary Care Provider: Driss Santiago MD HPI Reason for consult: slurred speech, Anxiety 60-year-old female? came to the hospital because of slurred speech and word-finding difficulty. As per the ED physician patient has these symptoms from yesterday noon whoever she says that she is having the symptom from 1 week. Stressed out. Had similar presentation in 2014 with neg . w/u. MRI today was normal Review of Systems Review of Systems: as above [facility] Past Medical History Medical History ADHD Anemia Anxiety and depression Back pain Bipolar disorder DDD (degenerative disc disease) GERD (gastroesophageal reflux disease) Hx of small bowel obstruction Hypercholesterolemia Iron deficiency anemia Lumbar disc herniation Obesity Osteoarthritis PTSD (post-traumatic stress disorder) Right rotator cuff tear Family History Family History Father HTN (hypertension) DM (diabetes mellitus) Bladder cancer Prostate cancer Hyperlipidemia Mother No problems noted. Brother No problems noted. Sister No problems noted. Son No problems noted. Daughter No problems noted. Surgical History Surgical History History of adjustable gastric banding History of removal of laparoscopic gastric banding device History of Theo-en-Y gastric bypass Hx laparoscopic cholecystectomy Hx of section Hx of laminectomy Hx of laparoscopic gastric banding Hx of tonsillectomy S/P panniculectomy Social History Social History Household Members: Spouse, Children and Other Household Members Other:: dog and cat Housing: House Do you presently have visiting nurse or other home services: No Alcohol intake: never Patient Tobacco Use Status: Never used Tobacco Use of substances other than those prescribed or required for medical reasons: No Substance Use Type: Opiates Advance Directives: No Advance Directives Information Provided: Yes Patient : No service: No Current occupational status: disabled Sexual orientation: Straight/Heterosexual Meds Allergies Allergy/AdvReac Type Severity Reaction Status Date / Time amoxicillin [Amoxicillin] Allergy Severe HIVES, Verified 12/31/20 13:41 swelling Active Medications: Current Medications Aspirin (Aspirin Enteric Coated 81 Mg Tablet.) 81 mg PO DAILY [facility] Last Admin: 02/10/21 08:39 Dose: 81 mg Documented by: Heparin Sodium (Porcine) (Heparin Sodium,Porcine 5,000 Unit/Ml Vial) 5,000 unit SUBCUT Q8H [facility] Last Admin: 02/10/21 14:45 Dose: 5,000 unit Documented by: Lurasidone HCl (Lurasidone Hcl 40 Mg Tablet) 40 mg PO BEDTIME [facility] Last Admin: 02/09/21 22:31 Dose: 40 mg Documented by: Ondansetron HCl (Ondansetron Odt 4 Mg Tab.Rapdis) 4 mg TRANSLINGU Q6H PRN PRN Reason: Nausea Last Admin: 02/10/21 17:29 Dose: 4 mg Documented by: Oxycodone HCl (Oxycodone Hcl Immed Release 5 Mg Tablet) 10 mg PO QID PRN PRN Reason: Pain, Moderate (Pain Scale 4-6 Last Admin: 02/10/21 14:45 Dose: 10 mg Documented by: Pharmacy Consult (Consult Rx Perform Med Rec) 1 each MISCELLANE ONCE PRN PRN Reason: Consult order Thyroid (Thyroid,Pork 30 Mg Tablet) 45 mg PO BID [facility] Last Admin: 02/10/21 08:40 Dose: 45 mg Documented by: Home Medications Medication Instructions Recorded Confirmed Last Taken Type trazodone 100 mg tablet 100 - 400 mg PO BEDTIME PRN 10/13/20 02/09/21 02/08/21 History ascorbic acid (vitamin C) 500 mg 1 tab PO DAILY 11/04/20 02/09/21 02/08/21 History tablet (Vitamin C) cyanocobalamin (vitamin B-12) 1,000 mcg IM QMONTH 11/04/20 02/09/21 01/21/21 History 1,000 mcg/mL injection solution pantoprazole 40 mg tablet,delayed 1 tab PO DAILY 11/04/20 02/09/21 02/08/21 History release thyroid (pork) 30 mg tablet 1 tab PO BID 11/04/20 02/09/21 02/08/21 History ([place] Thyroid) calcium citrate 1,000 mg tablet 1,000 mg PO DAILY 11/27/20 02/09/21 02/08/21 History wcszihjv-qoyikdso-tyof 45 mg-folic 1 cap PO DAILY 11/27/20 02/09/21 02/08/21 History acid 800 mcg-vit K 120 mcg capsule (Bariatric Multivitamins) oxycodone 5 mg tablet 10 mg PO QID PRN tab 11/27/20 02/09/21 02/08/21 History clindamycin HCl 300 mg capsule 300 mg PO Q8H 02/09/21 02/09/21 02/08/21 History lithium carbonate 300 mg 900 mg PO BEDTIME 02/09/21 02/09/21 02/08/21 History tablet,extended release lurasidone 20 mg tablet (Latuda) 40 mg PO BEDTIME 02/09/21 02/09/21 02/08/21 History thyroid (pork) 15 mg tablet 15 mg PO BID 02/09/21 02/09/21 02/08/21 History ([place] Thyroid) Physical Exam Vital Signs: Vital Signs: Last Vital Signs Temp 97.7 F 02/10/21 04:00 Pulse 61 02/10/21 14:46 Resp 18 02/10/21 08:36 BP 157/64 H 02/10/21 14:46 Pulse Ox 99 02/10/21 14:46 BMI result Body Mass Index 32.3 Const: Other: Awake alert and anxious but no acute distress HENMT: Other: Normocephalic atraumatic. Pupils equal round reactive to light with extraocular muscles intact Neck: Other: Full range of motion without meningismus Resp: Other: Clear and equal bilaterally without wheezes rales or rhonchi Cardio: Other: Regular rate and rhythm without murmurs rubs or gallops GI: Other: Remote surgical scar consistent with history of gastric bypass surgery. Abdomen with mild left mid tenderness which patient states has been chronic. Otherwise nondistended with normal bowel sounds Skin: Other: Warm pink and dry without rash Neuro: Other: Awake alert and oriented. Intermittent difficulty with word naming. At times fluid without difficulty. No dysarthria noted. Cranial nerves intact. There is no pronator drift. [employer] strength equal bilaterally. Xssmwb-ez-hruq somewhat ataxic on pointing finger to finger bilaterally. No ataxia when touching nose bilaterally. Ambulatory Results Labs CBC & Chem 7: 02/10/21 06:54 02/10/21 06:54 Labs: Short CBC 02/10/21 Range/Units 06:54 WBC 7.6 (4.8-10.8) X10*3/uL Hgb 11.9 L (12.0-16.0) g/dl Hct 37.8 (37.0-47.0) % Plt Count TNP [facility] 02/10/21 06:54 Sodium 138 Potassium 4.2 Chloride 109 H Carbon Dioxide 25 BUN 9 Creatinine 0.76 Calcium 9.6 Assessment and Plan (1) Anxiety: Status: Acute Psych evaluation and stress management (2) Conversion disorder: Status: Acute Reassurance and stress management. No evidence of stroke Procedures Date of Service Date of Service: 02/10/21
--- NOTE | 2021-02-10 18:27 | PC.NURSE ---
neurologist at bedside evaluating pt, plan for the pt to go home tigered dr pfeiffer for d/c paperwork
== END 2021-02-10 19:22 | disposition home or self-care (01) | DRG 58 ==
LOC: HO.ED 13:13 → HO.EDOVER 15:20
PROVIDERS: Hospitalist; Admitting Provider Internal Medicine; Emergency Provider Emergency Medicine; PCP Internal Medicine; Visit Provider Internal Medicine
DX: R47.81 Slurred speech (principal); F44.4 Conversion disorder with motor symptom or deficit; F41.9 Anxiety disorder, unspecified; E03.9 Hypothyroidism, unspecified; E87.5 Hyperkalemia; K21.9 Gastro-esophageal reflux disease without esophagitis; Z20.822 Contact with and (suspected) exposure to COVID-19; R89.2 Abnormal level of other drugs, medicaments and biological substances in specimens from other organs, systems and tissues; T43.595A Adverse effect of other antipsychotics and neuroleptics, initial encounter; Y92.9 Unspecified place or not applicable; Z88.0 Allergy status to penicillin; Z98.84 Bariatric surgery status; Z79.890 Hormone replacement therapy; Z79.899 Other long term (current) drug therapy
CPT/HCPCS: 36415; 70450; 70551; 71046; 80048; 80053; 80061; 80143; 80178; 80179; 81003; 82077; 82140; 84443; 84484; 85025; 87635; 92507; 92523; 93005; 93306; 96361; 96374; 97162; 97166; 99285; 99291; J2060

== ENCOUNTER 2021-04-07 14:20 | Outpatient (REF) | payer OTHER, SELFPAY ==
--- NOTE | ~2021-04-07 | XR_ITS ---
EXAMINATION: XR LEFT SHOULDER AND LEFT HIP CLINICAL INFORMATION: Pain left shoulder and left hip. COMPARISON: None. TECHNIQUE: 2 views left hip and 4 views left shoulder. FINDINGS: LEFT HIP: There is no acute fracture, dislocation or subluxation. No bony erosive changes. The soft tissues are normal. LEFT SHOULDER: There is mild loss of left glenohumeral joint space with no bony erosive changes, loose bodies. The AC joint space is normal. The soft tissues are normal. XR/XR shoulder LT min 2V IMPRESSION: Mild degenerative changes left glenohumeral joint space. Unremarkable left hip exam.
--- NOTE | ~2021-04-07 | XR_ITS ---
EXAMINATION: XR LEFT SHOULDER AND LEFT HIP CLINICAL INFORMATION: Pain left shoulder and left hip. COMPARISON: None. TECHNIQUE: 2 views left hip and 4 views left shoulder. FINDINGS: LEFT HIP: There is no acute fracture, dislocation or subluxation. No bony erosive changes. The soft tissues are normal. LEFT SHOULDER: There is mild loss of left glenohumeral joint space with no bony erosive changes, loose bodies. The AC joint space is normal. The soft tissues are normal. XR/XR hip LT min 2V IMPRESSION: Mild degenerative changes left glenohumeral joint space. Unremarkable left hip exam.
== END 2021-04-07 14:21 | disposition home or self-care (01) ==
LOC: HO.XRAY 14:20
PROVIDERS: PCP Internal Medicine; Visit Provider Nurse Practitioner Family
DX: M25.512 Pain in left shoulder (principal); M25.552 Pain in left hip; M25.50 Pain in unspecified joint
CPT/HCPCS: 73030; 73502

== ENCOUNTER 2021-05-01 07:13 | Outpatient (REF) | payer OTHER, SELFPAY ==
[2021-05-01 08:02] LABS: Hematocrit 44.4 % (37.0-47.0); Hemoglobin 14.2 g/dl (12.0-16.0); Mean Corpuscular Hemoglobin 28.9 pg (27.0-33.0); Mean Corpuscular Volume 90.2 fL (80.0-98.0); Mean Platelet Volume 9.6 fL (9.4-12.3); Platelet Count 336 X10*3/uL (160-400); Red Blood Count 4.92 X10*6/uL (4.20-5.50); White Blood Count 7.5 X10*3/uL (4.8-10.8)
[2021-05-01 08:13] LABS: Lithium 0.24 mmol/L (0.60-1.20)
[2021-05-01 08:29] LABS: Alanine Aminotransferase 10 U/L (0-31); Albumin Level 4.3 g/dL (3.5-5.0); Alkaline Phosphatase 101 U/L (39-117); Anion Gap 13 (12-20); Aspartate Amino Transferase 15 U/L (5-31); Bilirubin Total 0.7 mg/dL (0.0-1.0); Blood Urea Nitrogen 12 mg/dL (9-16); Calcium 10.2 mg/dL (8.4-10.2); Carbon Dioxide 27 mmol/L (22-29); Chloride 104 mmol/L (96-108); Cholesterol 266 mg/dL; Estimated Glomerular Filt Rate > 60; Glucose Fasting 119 mg/dL (60-99); HDL Cholesterol 83 mg/dL; LDL Cholesterol Calculated 162 mg/dl; Potassium 4.8 mmol/L (3.3-5.1); Sodium 139 mmol/L (135-145); Total Protein 7.2 g/dL (6.5-8.0); Triglycerides 109 mg/dL
[2021-05-01 08:48] LABS: TSH reflex Free T4 2.07 uIU/mL (0.32-4.0); Vitamin D 25-OH Total 26.2 ng/mL (>30)
[2021-05-01 12:02] LABS: Folate > 20.0 ng/mL (> or = 4.0); Vitamin B12 842 pg/mL (200-900)
== END 2021-05-01 07:14 | disposition home or self-care (01) ==
LOC: HO.LAB 07:13
PROVIDERS: PCP Internal Medicine; Visit Provider Nurse Practitioner Family
DX: Z13.1 Encounter for screening for diabetes mellitus (principal); F31.9 Bipolar disorder, unspecified; E03.9 Hypothyroidism, unspecified; E78.00 Pure hypercholesterolemia, unspecified; Z79.899 Other long term (current) drug therapy
CPT/HCPCS: 36415; 80053; 80061; 80178; 82306; 82607; 82746; 84443; 85027

== ENCOUNTER 2021-05-13 00:10 | Emergency (ER) | payer OTHER, SELFPAY ==
--- NOTE | ~2021-05-13 | XR_ITS ---
EXAMINATION: XR ABDOMEN KUB CLINICAL INDICATION: Nausea/vomiting. COMPARISON: CT dated 12/25/2020. TECHNIQUE: AP view of the abdomen. FINDINGS: A few surgical clips are present in the upper abdomen, corresponding in part to cholecystectomy clips. Chain hipolito from prior Theo-en-Y gastric bypass are noted. Nondilated bowel gas pattern. Moderate volume stool throughout the colon. Lung bases are clear. No pathologic calcifications are identified. There is degenerative disc disease in the mid lumbar spine with right convex curvature. Mild osteoarthritis in the hips. XR/XR KUB IMPRESSION: No acute soft tissue findings are identified in the abdomen. Nondilated bowel gas pattern. Moderate stool volume.
--- NOTE | ~2021-05-13 | XR_ITS ---
EXAMINATION: XR CHEST CLINICAL INFORMATION: Chest pain. COMPARISON: Chest radiograph dated from 02/09/2021. TECHNIQUE: 2 views of the chest were obtained. FINDINGS: Stable cardiomediastinal silhouette. No focal airspace opacities, pleural effusions or pneumothorax. No acute osseous abnormalities. Nonspecific gaseous distention in the upper abdomen. XR/XR chest 2V IMPRESSION: No acute cardiopulmonary findings. Nonspecific gaseous distention of the bowel in the upper abdomen. If indicated, correlation with an abdominal radiograph or CT is recommended.
[2021-05-13 00:23] VITALS: BP 148/100; PULSE 97; RESP 20; TEMP 37.2; O2SAT 98; BMI 33.2
--- NOTE | 2021-05-13 00:27 | ECG_ITS ---
Test Reason : chest pain Blood Pressure : / mmHG Vent. Rate : 096 BPM Atrial Rate : 096 BPM P-R Int : 138 ms QRS Dur : 084 ms QT Int : 370 ms P-R-T Axes : 041 -08 006 degrees QTc Int : 467 ms Normal sinus rhythm Moderate voltage criteria for LVH, may be normal variant ( R in aVL , Duane product ) Borderline ECG When compared with ECG of 09-FEB-2021 15:36, Vent. rate has increased BY 45 BPM Referred By: Samantha Brown Electronically Signed By:Stan Barrera
[2021-05-13 01:06] LABS: COVID-19 Test Negative (Negative)
[2021-05-13 02:48] VITALS: BP 142/78; PULSE 86; RESP 17; O2SAT 100
[2021-05-13 03:07] LABS: Basophils Percent Auto 0.1 % (0-2); Eosinophils Absolute Auto 0.1 X10*3/uL (0.0-0.4); Eosinophils Percent Auto 0.7 % (0-4); Hematocrit 41.1 % (37.0-47.0); Hemoglobin 13.1 g/dl (12.0-16.0); Imm Gran Abs Auto 0.06 X10*3/uL (0.00-0.03); Imm Gran Pct Auto 0.4 % (0.0-0.4); Lymphocytes Absolute Auto 2.4 X10*3/uL (1.2-4.9); Lymphocytes Percent Auto 17.2 % (20-40); MANUAL DIFF FLAG NO; Mean Corpuscular HGB Conc 31.9 g/dl (31.0-35.0); Mean Corpuscular Hemoglobin 29.2 pg (27.0-33.0); Mean Corpuscular Volume 91.5 fL (80.0-98.0); Mean Platelet Volume 9.5 fL (9.4-12.3); Monocytes Absolute Auto 0.8 X10*3/uL (0.1-1.2); Monocytes Percent Auto 6.1 % (2-11); Neutrophils Absolute Auto 10.3 x10*3/uL (2.0-8.3); Neutrophils Percent Auto 75.5 % (45-73); Platelet Count 280 X10*3/uL (160-400); Red Blood Count 4.49 X10*6/uL (4.20-5.50); Red Cell Distribution Width 13.2 % (11.0-16.0); White Blood Count 13.7 X10*3/uL (4.8-10.8)
[2021-05-13 03:13] LABS: Prothrombin Time 11.2 SEC (9.9-13.0)
[2021-05-13 03:25] LABS: Alanine Aminotransferase 17 U/L (0-31); Alkaline Phosphatase 94 U/L (39-117); Anion Gap 14 (12-20); Aspartate Amino Transferase 17 U/L (5-31); Bilirubin Total 0.5 mg/dL (0.0-1.0); Blood Urea Nitrogen 13 mg/dL (9-16); Calcium 9.1 mg/dL (8.4-10.2); Carbon Dioxide 21 mmol/L (22-29); Chloride 108 mmol/L (96-108); Creatinine Clr Calc Pharmacy 96.2; Estimated Glomerular Filt Rate > 60; Glucose Random 116 mg/dL (60-115); Magnesium 2.2 mg/dL (1.6-2.6); Potassium 4.1 mmol/L (3.3-5.1); Sodium 139 mmol/L (135-145); Total Protein 6.7 g/dL (6.5-8.0)
[2021-05-13 03:31] LABS: B Type Natriuretic Peptide 23 pg/mL (<100); Troponin-I High Sensitivity < 3.5 ng/L (<3.5-17.0)
[2021-05-13 03:52] LABS: Appearance Urine CLEAR; Color Urine YELLOW; Glucose Urine UA NEG (NEG); Leukocyte Esterase Urine NEG (NEG); Nitrite Urine NEG (NEG); Specific Gravity - Urine <= 1.005 (1.005-1.025); Urine Blood NEG (NEG); Urine Ketones NEG (NEG); Urine Protein NEG (NEG-TRACE)
--- NOTE | 2021-05-13 03:53 | ED_ITS ---
HPI - Chest Pain General Chief Complaint: Chest Pain Stated Complaint: chest pain, migraine, n/v/d Time Seen by Provider: 05/13/21 00:31 Source: patient Mode of arrival: ambulatory History of Present Illness HPI narrative: 60-year-old female with history of Theo-en-Y, , who presents with nausea, vomiting, diarrhea and has continued to pass flatus but noted on triage note that patient states constipation. Patient then states that she developed chest pain today that is burning in nature and denies urinary symptoms. Patient states that she was seen at [facility] yesterday and had complete workup and then was told everything looks good and discharged. However, she continued to have nausea and vomiting. Related Data Home Medications Medication Instructions Recorded Confirmed trazodone 100 mg tablet 100 - 400 mg PO BEDTIME PRN 10/13/20 04/28/21 ascorbic acid (vitamin C) 500 mg 1 tab PO DAILY 11/04/20 04/28/21 tablet (Vitamin C) cyanocobalamin (vitamin B-12) 1,000 mcg IM QMONTH 11/04/20 04/28/21 1,000 mcg/mL injection solution thyroid (pork) 30 mg tablet 1 tab PO BID 11/04/20 04/28/21 ([place] Thyroid) calcium citrate 1,000 mg tablet 1,000 mg PO DAILY 11/27/20 04/28/21 azjsjmvx-zpzwdoyq-ccml 45 mg-folic 1 cap PO DAILY 11/27/20 04/28/21 acid 800 mcg-vit K 120 mcg capsule (Bariatric Multivitamins) oxycodone 5 mg tablet 10 mg PO QID PRN tab 11/27/20 04/28/21 lurasidone 20 mg tablet (Latuda) 40 mg PO BEDTIME 02/09/21 04/28/21 thyroid (pork) 15 mg tablet 15 mg PO BID 02/09/21 04/28/21 ([place] Thyroid) carisoprodol 350 mg tablet (Soma) 350 mg PO QID 04/07/21 04/28/21 lithium carbonate 300 mg capsule 300 mg PO DAILY cap 04/28/21 04/28/21 Previous Rx's Medication Instructions Recorded ondansetron HCl 4 mg tablet 4 mg PO Q6H PRN #30 tab 11/27/20 (Zofran) pantoprazole 40 mg tablet,delayed 40 mg PO DAILY 90 Days #90 tab 03/27/21 release cholecalciferol (vitamin D3) 50 50 mcg PO DAILY #90 tab 05/01/21 mcg (2,000 unit) tablet Allergies Allergy/AdvReac Type Severity Reaction Status Date / Time amoxicillin [Amoxicillin] Allergy Severe HIVES, Verified 04/28/21 09:57 swelling Review of Systems Review of Systems: Pertinent positives and negatives as stated in HPI 10 point review systems is otherwise negative. [facility] Past Medical History Source: nursing notes reviewed Medical History ADHD Anemia Anxiety Anxiety and depression Back pain Bipolar disorder DDD (degenerative disc disease) GERD (gastroesophageal reflux disease) Hx of small bowel obstruction Hypercholesterolemia Iron deficiency anemia Lumbar disc herniation Obesity Osteoarthritis PTSD (post-traumatic stress disorder) Right rotator cuff tear Surgical History History of adjustable gastric banding History of removal of laparoscopic gastric banding device History of Theo-en-Y gastric bypass Hx laparoscopic cholecystectomy Hx of section Hx of laminectomy Hx of laparoscopic gastric banding Hx of tonsillectomy S/P panniculectomy Family History Family History Father HTN (hypertension) DM (diabetes mellitus) Bladder cancer Prostate cancer Hyperlipidemia Mother No problems noted. Brother No problems noted. Sister No problems noted. Son No problems noted. Daughter No problems noted. Social History Social History Household Members: Spouse, Children and Other Household Members Other:: dog and cat Housing: House Do you presently have visiting nurse or other home services: No Alcohol intake: never Patient Tobacco Use Status: Never used Tobacco e-Cigarette/Vaping Use: Never Used Substance Use Type: Opiates Advance Directives: No Advance Directives Information Provided: Yes service: No Current occupational status: disabled Sexual orientation: Straight/Heterosexual Physical Exam Vital Signs: Vital Signs: Last Vital Signs Temp 98.9 F 05/13/21 00:23 Pulse 86 05/13/21 02:48 Resp 17 05/13/21 02:48 BP 142/78 H 05/13/21 02:48 Pulse Ox 100 05/13/21 02:48 BMI result Body Mass Index 33.2 VITAL SIGNS: Reviewed. GENERAL: Elevated BMI, Well developed, well nourished, in no acute distress. HEAD: Normocephalic/atraumatic EYES: PERRLA, EOMI EARS: Ext canals without abnormality OROPHARYNX: no oral lesions noted, posterior pharynx clear LUNGS: Normal breath sounds. No adventitious sounds or accessory muscle use. SpO2<100> CARDIOVASCULAR: Regular rate and rhythm without noted murmurs, no JVD or lower extremity edema. ABDOMEN: Soft, mild tenderness in epigastrium without rebound, non-distended with bowel sounds. MUSCULOSKELETAL: No tenderness, deformities, or effusions noted on gross inspection. EXTREMITIES: No cyanosis, clubbing or edema. SKIN: Inspection of the skin reveals no rashes NEUROLOGIC: Alert and oriented x 4. Strength and sensation to light touch were grossly intact x 4. Course Course Course Narrative: 60-year-old female with history and clinical presentation suggestive of possible SBO, gastritis, pancreatitis and suspect that this is contributing to symptoms of ?chest pain?. I have requested the records from [facility] and on review of investigations at this time EKG and high sensitivity troponin a without acute findings. Review of all investigations negative for acute findings other than moderate to large stool load, no obstructive symptoms and on review of ER documentation from [facility] benign workup at that time as well. Although there is a noted leukocytosis this is felt to be more of stress response than related to intra- abdominal or etiologies. Patient continues to pass gas and was informed of all results and discharged home in stable condition. MDM - Chest Pain Lab Data Result diagrams: 05/13/21 03:00 05/13/21 03:00 Labs: Lab Results 05/13/21 05/13/21 05/13/21 Range/Units 00:40 03:00 03:00 WBC 13.7 H (4.8-10.8) X10*3/uL RBC 4.49 (4.20-5.50) X10*6/uL Hgb 13.1 (12.0-16.0) g/dl Hct 41.1 (37.0-47.0) % MCV 91.5 (80.0-98.0) fL MCH 29.2 (27.0-33.0) pg MCHC 31.9 (31.0-35.0) g/dl RDW 13.2 (11.0-16.0) % Plt Count 280 (160-400) X10*3/uL MPV 9.5 (9.4-12.3) fL Immature Gran % (Auto) 0.4 (0.0-0.4) % Neut % (Auto) 75.5 H (45-73) % Lymph % (Auto) 17.2 L (20-40) % [place] % (Auto) 6.1 (2-11) % Eos % (Auto) 0.7 (0-4) % Baso % (Auto) 0.1 (0-2) % Lymph # (Auto) 2.4 (1.2-4.9) X10*3/uL Emmons # (Auto) 0.8 (0.1-1.2) X10*3/uL Eos # (Auto) 0.1 (0.0-0.4) X10*3/uL Baso # (Auto) 0.0 (0.0-0.2) X10*3/uL Abs Immat Gran (auto) 0.06 H (0.00-0.03) X10*3/uL Absolute Neuts (auto) 10.3 H (2.0-8.3) x10*3/uL Absolute Nucleated RBC 0.000 (0.0-0.012) X10*3/uL Nucleated RBC % (auto) 0.0 (0.0-0.2) /100WBC PT (9.9-13.0) SEC INR (0.9-1.1) Sodium 139 (135-145) mmol/L Potassium 4.1 (3.3-5.1) mmol/L Chloride 108 (96-108) mmol/L Carbon Dioxide 21 L (22-29) mmol/L Anion Gap 14 (12-20) BUN 13 (9-16) mg/dL Creatinine 0.78 (0.5-1.4) mg/dL Estim Creat Clear Calc 96.2 Estimated GFR > 60 Random Glucose 116 H (60-115) mg/dL Calcium 9.1 D (8.4-10.2) mg/dL Magnesium 2.2 (1.6-2.6) mg/dL Total Bilirubin 0.5 (0.0-1.0) mg/dL AST 17 (5-31) U/L ALT 17 (0-31) U/L Alkaline Phosphatase 94 (39-117) U/L Troponin I High Sens (<3.5-17.0) ng/L B-Natriuretic Peptide (<100) pg/mL Total Protein 6.7 (6.5-8.0) g/dL Albumin 4.0 (3.5-5.0) g/dL Lipase 66 (8-78) U/L Urine Color Urine Appearance Urine pH (5.0-8.0) Ur Specific [place] (1.005-1.025) Urine Protein (NEG-TRACE) MG/DL Urine Glucose (UA) (NEG) MG/DL Urine Ketones (NEG) MG/DL Urine Blood (NEG) Urine Nitrite (NEG) Ur Leukocyte Esterase (NEG) COVID-19 ([facility]) Negative (Negative) COVID-19 Clin Com See Note 05/13/21 05/13/21 05/13/21 Range/Units 03:00 03:00 03:47 WBC (4.8-10.8) X10*3/uL RBC (4.20-5.50) X10*6/uL Hgb (12.0-16.0) g/dl Hct (37.0-47.0) % MCV (80.0-98.0) fL MCH (27.0-33.0) pg MCHC (31.0-35.0) g/dl RDW (11.0-16.0) % Plt Count (160-400) X10*3/uL MPV (9.4-12.3) fL Immature Gran % (Auto) (0.0-0.4) % Neut % (Auto) (45-73) % Lymph % (Auto) (20-40) % Emmons % (Auto) (2-11) % Eos % (Auto) (0-4) % Baso % (Auto) (0-2) % Lymph # (Auto) (1.2-4.9) X10*3/uL [place] # (Auto) (0.1-1.2) X10*3/uL Eos # (Auto) (0.0-0.4) X10*3/uL Baso # (Auto) (0.0-0.2) X10*3/uL Abs Immat Gran (auto) (0.00-0.03) X10*3/uL Absolute Neuts (auto) (2.0-8.3) x10*3/uL Absolute Nucleated RBC (0.0-0.012) X10*3/uL Nucleated RBC % (auto) (0.0-0.2) /100WBC PT 11.2 (9.9-13.0) SEC INR 1.0 (0.9-1.1) Sodium (135-145) mmol/L Potassium (3.3-5.1) mmol/L Chloride (96-108) mmol/L Carbon Dioxide (22-29) mmol/L Anion Gap (12-20) BUN (9-16) mg/dL Creatinine (0.5-1.4) mg/dL Estim Creat Clear Calc Estimated GFR Random Glucose (60-115) mg/dL Calcium (8.4-10.2) mg/dL Magnesium (1.6-2.6) mg/dL Total Bilirubin (0.0-1.0) mg/dL AST (5-31) U/L ALT (0-31) U/L Alkaline Phosphatase (39-117) U/L Troponin I High Sens < 3.5 (<3.5-17.0) ng/L B-Natriuretic Peptide 23 (<100) pg/mL Total Protein (6.5-8.0) g/dL Albumin (3.5-5.0) g/dL Lipase (8-78) U/L Urine Color YELLOW Urine Appearance CLEAR Urine pH 6.0 (5.0-8.0) Ur Specific [place] <= 1.005 (1.005-1.025) Urine Protein NEG (NEG-TRACE) MG/DL Urine Glucose (UA) NEG (NEG) MG/DL Urine Ketones NEG (NEG) MG/DL Urine Blood NEG (NEG) Urine Nitrite NEG (NEG) Ur Leukocyte Esterase NEG (NEG) COVID-19 ([facility]) (Negative) COVID-19 Clin Com ECG Data ECG #1: Attestation: I personally reviewed and interpreted this ECG as follows: Prior ECG tracings: available for review Interpretation: NSR, HR-96, no STEMI, NE/QRS/QTC are within normal limits. Discharge Plan Discharge Clinical Impression: Constipation, Abdominal pain Patient Disposition: Home, Self-Care Instructions: Constipation (ED), Fleet Enema (ED), High Fiber Diet (ED), Abdominal Pain (ED) Additional Instructions: 1. Resume all home medications as prescribed. Increase fluid hydration, especially with water. 2. Please follow-up with your primary care provider for re-evaluation and fu rther outpatient management. 3. Continue with the MiraLax twice daily unless you develop diarrhea and at that time you should decrease the MiraLax to once daily. Return to the ER for worsening symptoms. Prescriptions: No Action pantoprazole 40 mg tablet,delayed release (DR/EC) 40 mg PO DAILY 90 Days Qty: 90 1RF cholecalciferol (vitamin D3) 50 mcg (2,000 unit) tablet 50 mcg PO DAILY Qty: 90 1RF ascorbic acid (vitamin C) [Vitamin C] 500 mg tablet 1 tab PO DAILY 0RF thyroid (pork) [[place] Thyroid] 30 mg tablet 1 tab PO BID 0RF cyanocobalamin (vitamin B-12) 1,000 mcg/mL Solution 1,000 mcg IM QMONTH 0RF trazodone 100 mg Tablet 100 - 400 mg PO BEDTIME PRN (Reason: Anxiety) 0RF thyroid (pork) [[place] Thyroid] 15 mg tablet 15 mg PO BID 0RF Latuda 20 mg tablet 40 mg PO BEDTIME 0RF lithium carbonate 300 mg capsule 300 mg PO DAILY 0RF carisoprodol [Soma] 350 mg tablet 350 mg PO QID 0RF oxycodone 5 mg tablet 10 mg PO QID PRN (Reason: Pain) 0RF calcium citrate 1,000 mg tablet 1,000 mg PO DAILY 0RF Bariatric Multivitamins 45 mg iron- 800 mcg-120 mcg capsule 1 cap PO DAILY 0RF ondansetron HCl [Zofran] 4 mg tablet 4 mg PO Q6H PRN (Reason: nausea and vomiting) Qty: 30 1RF Referrals: Po,Driss Muñiz MD [Primary Care Provider] - 2 days
[2021-05-13] MEDS: Ondansetron ODT 4 MG TAB.RAPDIS TRANSLINGU (04:06)
[2021-05-13] MEDS: LORazepam 0.5 MG TABLET PO (04:07)
[2021-05-13] MEDS: Magnesium Hydrox/Alum Hydrox 30 ML ORAL.SUSP PO (04:07)
[2021-05-13] MEDS: Lidocaine HCl Viscous 2 % 15 ML SOLUTION 10 ML MUCOUS MEM (04:08)
[2021-05-13 04:11] LABS: Lipase 66 U/L (8-78)
== END 2021-05-13 05:19 | disposition home or self-care (01) ==
PROVIDERS: Physician Assistant Medical; Emergency Provider Student in an Organized Health Care Education/Training Program; PCP Internal Medicine
DX: K59.00 Constipation, unspecified (principal); R10.9 Unspecified abdominal pain; R07.89 Other chest pain; Z20.822 Contact with and (suspected) exposure to COVID-19; Z98.84 Bariatric surgery status
CPT/HCPCS: 36415; 71046; 74018; 80053; 81003; 83690; 83735; 83880; 84484; 85025; 85610; 87635; 93005; 99284

== ENCOUNTER → 2021-05-19 10:46 | Outpatient (BNVA) | payer OTHER, SELFPAY | PROVIDERS: PCP Internal Medicine; Visit Provider Physician Assistant | DX: Z13.89 Encounter for screening for other disorder (principal) ==

== ENCOUNTER 2021-06-17 08:38 | Outpatient (REF) | payer OTHER, SELFPAY ==
--- NOTE | ~2021-06-17 | MM_ITS ---
EXAMINATION: BONE DENSITOMETRY CLINICAL INDICATION: Asymptomatic menopausal state. COMPARISON: None (current study represents initial baseline exam). TECHNIQUE: Using a [employer] DXA System (software version: 13.1) manufactured by [employer], dual-energy x-ray absorptiometry was performed of the lumbar spine and left hip. The images are of good technical quality. Summary results are attached. FINDINGS: AP SPINE L1-L4 (excluding L2 and L3): The data of L1-L4 has been changed to exclude the L2 and L3 vertebral bodies, because degenerative changes at these levels may cause overestimation of lumbar spine density. BMD 1.129 g/cm2, Z-score -0.1, T-score -0.3, normal. LEFT FEMUR, NECK: BMD 0.847 g/cm2, Z-score -0.8, T-score -1.4, osteopenia. LEFT FEMUR, TOTAL: BMD 0.896 g/cm2, Z-score -0.7, T-score -0.9, normal. IDENTIFIED RISK FACTORS: Early menopause, secondary osteoporosis. HISTORY OF FRACTURE: None listed. MEDICATIONS: Calcium supplements or multivitamin, vitamin D. MM/XR DEXA axial skeleton IMPRESSION: 1. DIAGNOSIS: Osteopenia based on the lowest T-score value of -1.4 in the femoral neck applying World Health Organization criteria. 2. 10-YEAR FRACTURE RISK PREDICTION, FRAX: Major osteoporotic fracture (clinical spine, forearm, hip or shoulder) 7.5%. Hip fracture 0.6%. 3. Treatment Recommendations: NOF guidelines recommend consideration for treatment in postmenopausal women and men age 50 and older presenting with the following: -A hip or vertebral (clinical or morphometric) fracture. -T-score less than or equal to -2.5 at the femoral neck or spine after appropriate evaluation to exclude secondary causes. -Low bone mass at the hip or spine and a 10-year fracture probability by FRAX of greater than or equal to 3% for hip fracture or greater than or equal to 20% for major osteoporotic fracture based on the [place] adapted WHO algorithm. 4. Other Recommendations: All treatment decisions require clinical judgment and consideration of individual patient factors, including patient preferences, comorbidities, previous drug use, risk factors not captured in the FRAX model (e.g. frailty, falls, vitamin D deficiency, increased bone turnover, interval significant decline in bone density) and possible under or overestimation of fracture risk by FRAX. Additional medical evaluation for secondary cause of low bone mineral density may be appropriate. FUTURE SCAN RECOMMENDATION: People with diagnosed cases of osteoporosis or at high risk for fracture should have regular bone mineral density tests. For patients eligible for Medicare, routine testing is allowed once every 2 years. The testing frequency can be increased to one year for patients who have rapidly progressing disease, those who are receiving or discontinuing medical therapy to restore bone mass, or have additional risk factors.
== END 2021-06-17 08:39 | disposition home or self-care (01) ==
LOC: HO.MAMMO 08:38
PROVIDERS: Visit Provider Nurse Practitioner Family
DX: Z13.820 Encounter for screening for osteoporosis (principal); Z78.0 Asymptomatic menopausal state
CPT/HCPCS: 77080

== ENCOUNTER 2021-08-06 19:15 | Emergency (ER) | payer OTHER, SELFPAY ==
--- NOTE | ~2021-08-06 | CT_ITS ---
EXAMINATION: CT ABDOMEN AND PELVIS WITHOUT CONTRAST CLINICAL INFORMATION: Abdominal pain, history of gastric bypass. COMPARISON: CT abdomen and pelvis 12/25/2020 TECHNIQUE: Multidetector volumetric imaging was performed from the superior aspect of the liver through the pubic symphysis. Sagittal and coronal reformatted images were obtained on the technologist's workstation. This CT examination was performed using dose optimization techniques as appropriate, variously including the following: *Automated exposure control *Adjustment of mA and/or kV according to patient size (this includes techniques or standardized protocols for targeted exams where dose is matched to indication/reason for exam; i.e. extremities or head) *Use of iterative reconstruction technique DLP: 988 mGy-cm FINDINGS: LUNG BASES: The lung bases are clear. There is a small hiatal hernia. LIVER, GALLBLADDER, AND BILIARY TREE: The liver is normal in size, shape, and attenuation. No focal hepatic lesion or biliary ductal dilatation is present. The gallbladder has been surgically removed. PANCREAS: Unremarkable. SPLEEN: Unremarkable. ADRENAL GLANDS: Unremarkable. KIDNEYS AND URETERS: The kidneys are normal in size, shape, and attenuation. No hydronephrosis, hydroureter, or calculi seen. No perinephric stranding. There are bilateral small extrarenal kidney pelvises. BLADDER: Unremarkable. GASTROINTESTINAL TRACT: There is scattered stool and gas seen throughout the colon without distention. Oral contrast opacified small bowel loops are normal caliber. There are gastric bypass surgical changes with diffuse mural thickening distal esophagus. Appendix is not visualized ABDOMINAL WALL: No significant hernia is appreciated. LYMPH NODES: Normal. VASCULAR: Unremarkable. PELVIC VISCERA: Unremarkable. OSSEOUS STRUCTURES: There is mild degenerative disc changes L4-L5, L2-L3 disc levels with mild ventral spondylosis. No visible acute fracture, dislocation or lytic process seen. CT/CT abdomen pelvis wo con IMPRESSION: No acute intra-abdominal process seen. There is moderate constipation. No evidence of obstruction. Gastric bypass surgical changes with mural thickening GE junction and dilated distal esophagus question small hiatal hernia. Fleischner guidelines were followed.
[2021-08-06 19:30] VITALS: BP 110/82; PULSE 93; RESP 18; TEMP 36.8; O2SAT 95; BMI 35.4
--- NOTE | 2021-08-06 20:34 | ED.ABDPAIN ---
HPI - Abdominal Pain General Chief Complaint: Abdominal Pain Stated Complaint: upper abd pain Time Seen by Provider: 08/06/21 20:22 Source: patient and family Mode of arrival: ambulatory Limitations: no limitations History of Present Illness HPI narrative: 60-year-old female history of gastric bypass came in for evaluation of an abdominal pain. Pain started 3 months ago and progressively getting worse mostly to the left side of the abdomen patient feel like twisting and de- twisting and internal tension localized to the left side of the abdomen with no radiation, patient feels nauseous but no vomiting, usually get nonbloody watery diarrhea most of the time, nothing aggravate the pain, nothing relieved the pain. No fever, no chills. Past medical history significant for gastric bypass and cholecystectomy. No urinary frequency, no hematuria. No vaginal discharge, decline risk for STD. Related Data Home Medications Medication Instructions Recorded Confirmed ascorbic acid (vitamin C) 500 mg 1 tab PO DAILY 11/04/20 08/05/21 tablet (Vitamin C) cyanocobalamin (vitamin B-12) 1,000 mcg IM QMONTH 11/04/20 08/05/21 1,000 mcg/mL injection solution thyroid (pork) 30 mg tablet 1 tab PO BID 11/04/20 08/05/21 ([place] Thyroid) calcium citrate 1,000 mg tablet 1,000 mg PO DAILY 11/27/20 08/05/21 [id number] 45 mg-folic 1 cap PO DAILY 11/27/20 08/05/21 acid 800 mcg-vit K 120 mcg capsule (Bariatric Multivitamins) thyroid (pork) 15 mg tablet 15 mg PO BID 02/09/21 08/05/21 ([place] Thyroid) lithium carbonate 300 mg capsule 600 mg PO DAILY 07/08/21 08/05/21 lurasidone 20 mg tablet (Latuda) 20 mg PO BEDTIME 07/08/21 08/05/21 Previous Rx's Medication Instructions Recorded ondansetron HCl 4 mg tablet 4 mg PO Q6H PRN nausea and 11/27/20 (Zofran) vomiting #30 tabs polyethylene glycol 3350 17 238 g PO ONCE 1 day #238 grams 05/19/21 gram/dose oral powder (Miralax) Allergies Allergy/AdvReac Type Severity Reaction Status Date / Time amoxicillin [Amoxicillin] Allergy Severe HIVES, Verified 08/06/21 19:30 swelling Review of Systems Review of Systems All other systems are reviewed and are negative Constitutional: Reports as per HPI and Reports no additional constitutional complaints Eyes: Reports as per HPI and Reports no additional eye complaints Reports system reviewed and no additional complaints, except as documented Cardiovascular: Reports as per HPI and Reports no additional cardiovascular complaints Respiratory: Reports as per HPI and Reports no additional respiratory complaints Gastrointestinal: Reports as per HPI and Reports no additional gastrointestinal complaints Genitourinary: Reports no additional female genitourinary complaints Musculoskeletal: Reports no additional musculoskeletal complaints Skin/Breast: Reports system reviewed and no additional complaints, except as docu Psychiatric: Reports no additional psychiatric complaints Endocrine: Reports no additional endocrine complaints Hematologic/Lymphatic: Reports no additional hematologic/lymphatic complaints Allergic/Immunologic: Reports no additional allergic/immunologic complaints Reports system reviewed and no additional complaints, except as documented and Reports Abnormal speech present PMFSH Past Medical History Medical History ADHD Anemia Anxiety Back pain DDD (degenerative disc disease) Hx of small bowel obstruction Iron deficiency anemia Osteoarthritis PTSD (post-traumatic stress disorder) Right rotator cuff tear Surgical History History of adjustable gastric banding History of removal of laparoscopic gastric banding device Hx laparoscopic cholecystectomy Hx of section Hx of laminectomy Hx of laparoscopic gastric banding Hx of tonsillectomy S/P panniculectomy Family History Family History Father HTN (hypertension) DM (diabetes mellitus) Bladder cancer Prostate cancer Hyperlipidemia Mother No problems noted. Brother No problems noted. Sister No problems noted. Son No problems noted. Daughter No problems noted. Social History Social History Household Members: Spouse, Children and Other Household Members Other:: dog and cat Housing: House Do you presently have visiting nurse or other home services: No Alcohol intake: never Patient Tobacco Use Status: Never used Tobacco e-Cigarette/Vaping Use: Never Used Substance Use Type: Opiates Advance Directives: No Advance Directives Information Provided: No service: No Current occupational status: disabled Sexual orientation: Straight/Heterosexual Cognitive needs: No Hearing needs: No Vision needs: Yes Physical Exam ED Vital Signs: Vital Signs - 24 hr 08/06/21 19:30 08/06/21 22:14 Temperature 98.3 F 97.9 F Pulse Rate 93 75 Respiratory Rate 18 18 Blood Pressure 110/82 104/64 Pulse Oximetry 95 97 Oxygen Delivery Method Room Air Room Air BMI result Body Mass Index 35.4 vital signs have been reviewed as appeared to be correct. Blood pressure normal. Heart rate normal. Respiration rate normal. Temperature normal. Oxygen saturation normal. Appearance: Alert. Oriented X3. No acute distress. Head: Normal external exam. Normocephalic. Atraumatic. No Vuong signs noted. No raccoon eyes noted Eyes: PERRLA. EOMI. Conjunctiva and sclera normal. Eyelids normal. ENT: TM's Normal. Pharynx normal. Uvula midline. Moist mucous membranes. No trismus noted. No drooling noted. No muffled voice noted. Neck: Normal inspection. Neck supple. FROM. No adenopathy. Thyroid Normal. No meningeal signs. No neck mass noted. CVS: Normal heart rate and rhythm. Heart sound normal. No murmurs noted. Pulses normal throughout. Respiratory: No respiratory distress. Painless inspiration. Breath sounds normal. No wheezes/rales/rhonchi noted. Chest nontender. No accessory muscle usage noted or decreased air movement noted. Abdomen: Soft , left abdominal tenderness, no rebound tenderness, no guarding.. Bowel sounds normal in all 4 quadrants. No distention noted. No organomegaly noted. No visible injury noted. Back: No CVA tenderness. Full range of motion noted. Skin: Skin warm and dry. Normal skin color. Normal skin turgor. No rashes/lesions/lacerations noted. Extremities: No lower extremity edema. Extremities exhibit normal range of motion. Extremities nontender. Neuro: Oriented X 3. Cranial nerve exam: II-XII are grossly intact No motor deficit. No sensory deficit. Reflexes normal. Course Course Course Narrative: assessment and plan. 60-year-old female status post gastric bypass, patient do not drink alcohol and status post cholecystectomy with normal LFTs slight elevation of lipase with no intra-abdominal pathology on the CT. Patient was instructed to keep clear diet for few days in advance as tolerated, avoid greasy and fatty foods. MDM - Abdominal Pain Medical Records Attestation: I reviewed the patient's medical records. Lab Data Attestation: I reviewed the patient's lab results. Result diagrams: 08/06/21 20:38 08/06/21 20:38 Labs: Lab Results 08/06/21 08/06/21 08/06/21 Range/Units 20:38 20:38 20:38 WBC 6.9 (4.8-10.8) X10*3/uL RBC 4.18 L (4.20-5.50) X10*6/uL Hgb 12.3 (12.0-16.0) g/dl Hct 38.2 (37.0-47.0) % MCV 91.4 (80.0-98.0) fL MCH 29.4 (27.0-33.0) pg MCHC 32.2 (31.0-35.0) g/dl RDW 13.4 (11.0-16.0) % Plt Count 215 (160-400) X10*3/uL MPV 10.0 (9.4-12.3) fL Immature Gran % (Auto) 0.3 (0.0-0.4) % Neut % (Auto) 48.4 (45-73) % Lymph % (Auto) 38.2 (20-40) % [place] % (Auto) 9.1 (2-11) % Eos % (Auto) 3.6 (0-4) % Baso % (Auto) 0.4 (0-2) % Lymph # (Auto) 2.6 (1.2-4.9) X10*3/uL [place] # (Auto) 0.6 (0.1-1.2) X10*3/uL Eos # (Auto) 0.3 (0.0-0.4) X10*3/uL Baso # (Auto) 0.0 (0.0-0.2) X10*3/uL Abs Immat Gran (auto) 0.02 (0.00-0.03) X10*3/uL Absolute Neuts (auto) 3.4 (2.0-8.3) x10*3/uL Absolute Nucleated RBC 0.000 (0.0-0.012) X10*3/uL Nucleated RBC % (auto) 0.0 (0.0-0.2) /100WBC Sodium 138 (135-145) mmol/L Potassium 4.3 (3.3-5.1) mmol/L Chloride 107 (96-108) mmol/L Carbon Dioxide 24 (22-29) mmol/L Anion Gap 11 L (12-20) BUN 18 H (9-16) mg/dL Creatinine 0.89 (0.5-1.4) mg/dL Estim Creat Clear Calc 87.2 Estimated GFR > 60 Random Glucose 146 H (60-115) mg/dL Calcium 8.8 (8.4-10.2) mg/dL Total Bilirubin 0.6 (0.0-1.0) mg/dL Direct Bilirubin 0.2 (0.0-0.5) mg/dL AST 15 (5-31) U/L ALT 14 (0-31) U/L Alkaline Phosphatase 83 (39-117) U/L Total Protein 6.0 L (6.5-8.0) g/dL Albumin 3.8 (3.5-5.0) g/dL Lipase 127 H (8-78) U/L Urine Color YELLOW Urine Appearance CLEAR Urine pH 5.5 (5.0-8.0) Ur Specific [place] 1.025 (1.005-1.025) Urine Protein NEG (NEG-TRACE) MG/DL Urine Glucose (UA) NEG (NEG) MG/DL Urine Ketones NEG (NEG) MG/DL Urine Blood TRACE (NEG) Urine Nitrite NEG (NEG) Ur Leukocyte Esterase NEG (NEG) Urine RBC 0-2 (0) /HPF Urine WBC 0 (0-4) /HPF Ur Squamous Epith Cells 1+ /LPF Urine Bacteria TRACE /LPF Imaging Data Abdomen and pelvis CT: Attestation: I personally reviewed and interpreted this imaging study as follows: Radiologist's impression: No acute intra-abdominal process seen. There is moderate constipation. No evidence of obstruction. ?Gastric bypass surgical changes with mural thickening GE junction and dilated distal esophagus question small hiatal hernia. ? Discharge Plan Discharge Clinical Impression: Abdominal pain, Acute pancreatitis Patient Disposition: Home, Self-Care Instructions: Pancreatitis (ED) Prescriptions: No Action ascorbic acid (vitamin C) [Vitamin C] 500 mg tablet 1 tab PO DAILY thyroid (pork) [[place] Thyroid] 30 mg tablet 1 tab PO BID cyanocobalamin (vitamin B-12) 1,000 mcg/mL Solution 1,000 mcg IM QMONTH thyroid (pork) [[place] Thyroid] 15 mg tablet 15 mg PO BID lithium carbonate 300 mg capsule 600 mg PO DAILY Latuda 20 mg tablet 20 mg PO BEDTIME calcium citrate 1,000 mg tablet 1,000 mg PO DAILY Bariatric Multivitamins 45 mg iron- 800 mcg-120 mcg capsule 1 cap PO DAILY ondansetron HCl [Zofran] 4 mg tablet 4 mg PO Q6H PRN (Reason: nausea and vomiting) Qty: 30 1RF polyethylene glycol 3350 [Miralax] 17 gram/dose powder 238 g PO ONCE 1 Days Qty: 238 0RF Rx Instructions: Take as directed by mouth the day before your procedure. Referrals: Po,Driss Muñiz MD [Primary Care Provider] - Kwadwo Rangel MD [Physician] -
[2021-08-06 20:42] LABS: MANUAL DIFF FLAG NO
[2021-08-06 20:45] LABS: Basophils Percent Auto 0.4 % (0-2); Eosinophils Absolute Auto 0.3 X10*3/uL (0.0-0.4); Eosinophils Percent Auto 3.6 % (0-4); Hematocrit 38.2 % (37.0-47.0); Hemoglobin 12.3 g/dl (12.0-16.0); Imm Gran Abs Auto 0.02 X10*3/uL (0.00-0.03); Imm Gran Pct Auto 0.3 % (0.0-0.4); Lymphocytes Absolute Auto 2.6 X10*3/uL (1.2-4.9); Lymphocytes Percent Auto 38.2 % (20-40); Mean Corpuscular HGB Conc 32.2 g/dl (31.0-35.0); Mean Corpuscular Hemoglobin 29.4 pg (27.0-33.0); Mean Corpuscular Volume 91.4 fL (80.0-98.0); Monocytes Absolute Auto 0.6 X10*3/uL (0.1-1.2); Monocytes Percent Auto 9.1 % (2-11); Neutrophils Absolute Auto 3.4 x10*3/uL (2.0-8.3); Neutrophils Percent Auto 48.4 % (45-73); Platelet Count 215 X10*3/uL (160-400); Red Blood Count 4.18 X10*6/uL (4.20-5.50); Red Cell Distribution Width 13.4 % (11.0-16.0); White Blood Count 6.9 X10*3/uL (4.8-10.8)
[2021-08-06 20:46] LABS: Appearance Urine CLEAR; Color Urine YELLOW; Glucose Urine UA NEG (NEG); Leukocyte Esterase Urine NEG (NEG); Nitrite Urine NEG (NEG); PH 5.5 (5.0-8.0); Specific Gravity - Urine 1.025 (1.005-1.025); UACC Culture Trigger NO; Urine Blood TRACE (NEG); Urine Ketones NEG (NEG); Urine Protein NEG (NEG-TRACE)
[2021-08-06] MEDS: 0.9 % Sodium Chloride 1,000 ML 999 ML IV (20:50)
[2021-08-06 20:52] LABS: Bacteria Urine TRACE /LPF; RBC Urine 0-2 /HPF (0); Squamous Epithelial Cell Urine 1+ /LPF; WBC Urine 0 /HPF (0-4)
[2021-08-06 21:03] LABS: Alanine Aminotransferase 14 U/L (0-31); Albumin Level 3.8 g/dL (3.5-5.0); Alkaline Phosphatase 83 U/L (39-117); Anion Gap 11 (12-20); Aspartate Amino Transferase 15 U/L (5-31); Bilirubin Direct 0.2 mg/dL (0.0-0.5); Bilirubin Total 0.6 mg/dL (0.0-1.0); Blood Urea Nitrogen 18 mg/dL (9-16); Calcium 8.8 mg/dL (8.4-10.2); Carbon Dioxide 24 mmol/L (22-29); Chloride 107 mmol/L (96-108); Creatinine Clr Calc Pharmacy 87.2; Estimated Glomerular Filt Rate > 60; Glucose Random 146 mg/dL (60-115); Lipase 127 U/L (8-78); Potassium 4.3 mmol/L (3.3-5.1); Sodium 138 mmol/L (135-145)
[2021-08-06] MEDS: Diatrizoate Meglumine, Sodium 30 ML SOLUTION PO (21:54)
[2021-08-06 22:14] VITALS: BP 104/64; PULSE 75; RESP 18; TEMP 36.6; O2SAT 97
== END 2021-08-06 23:56 | disposition home or self-care (01) ==
PROVIDERS: Emergency Provider Emergency Medicine; PCP Internal Medicine
DX: K85.90 Acute pancreatitis without necrosis or infection, unspecified (principal); R10.9 Unspecified abdominal pain; Z98.84 Bariatric surgery status; Z90.49 Acquired absence of other specified parts of digestive tract
CPT/HCPCS: 36415; 74176; 80048; 80076; 81001; 83690; 85025; 96360; 99283; 99284

== ENCOUNTER 2021-09-28 11:12 | Outpatient (REF) | payer OTHER, SELFPAY ==
--- NOTE | ~2021-09-28 | XR_ITS ---
EXAMINATION: XR KNEE, LEFT CLINICAL INFORMATION: Pain. COMPARISON: Left knee radiographs dated 04/27/2010. TECHNIQUE: 4 views of the left knee. FINDINGS: No acute fracture. No dislocation. Moderate medial compartment joint space narrowing. [id number] patellofemoral compartment joint space narrowing. Tricompartmental marginal osteophytes. No osseous erosion. Trace joint effusion. No abnormal soft tissue calcification. XR/XR knee LT 4V IMPRESSION: Severe patellofemoral as well as more moderate medial and mild lateral compartment osteoarthritis. Trace joint effusion.
--- NOTE | ~2021-09-28 | XR_ITS ---
EXAMINATION: XR TIBIA AND FIBULA, LEFT CLINICAL INFORMATION: Left tibia/fibula pain COMPARISON: None TECHNIQUE: AP and lateral views of the left tibia and fibula were obtained. FINDINGS: Normal alignment. No fracture. No bone lesion or suspicious soft tissue calcification. XR/XR tibia fibula LT 2V IMPRESSION: No fracture.
== END 2021-09-28 11:13 | disposition home or self-care (01) ==
LOC: HO.HMGCX 11:12
PROVIDERS: PCP Internal Medicine; Visit Provider Nurse Practitioner Family
DX: M79.662 Pain in left lower leg (principal)
CPT/HCPCS: 73564; 73590

== ENCOUNTER 2021-10-01 11:03 | Day surgery (SDC) | payer OTHER, SELFPAY ==
[2021-09-29 15:09] VITALS: BMI 33.2
--- NOTE | 2021-09-30 12:38 | P.CONAN_ITS ---
Documented by User: Char Bolaños NP 09/30/21 12:39 HPI - Anesthesia Eval Consult details Narrative: 61yo F for Upper Endoscopy and Colonoscopy [facility] Active Problems Active Problems: All Active Problems (Updated 09/29/21 @ 15:08 by Earnestine Posada RN) Hypothyroid (Acute) Dizziness (Acute) Upper back pain on left side (Acute) SOB (shortness of breath) (Acute) BMI 35.0-35.9,adult (Acute) Marginal ulcer (Acute) Abdominal muscle strain (Acute) Weight gain (Acute) BMI 34.0-34.9,adult (Acute) Osteomyelitis (Acute) Urinary incontinence (Acute) Left lateral abdominal pain (Acute) BMI 33.0-33.9,adult (Acute) [place] toxicity (Acute) Slurred speech (Acute) Left shoulder pain (Acute) Left hip pain (Acute) Polyarthralgia (Acute) Depression (Acute) Post-menopausal (Acute) Screening for breast cancer (Acute) Screening for colon cancer (Acute) Screening for diabetes mellitus (Acute) Low vitamin D level (Acute) Elevated fasting glucose (Acute) Adult general medical exam (Acute) Chronic diarrhea (Acute) LLQ abdominal pain (Acute) Osteopenia (Acute) Abdominal pain (Acute) Bipolar disorder (Acute) Obesity (Acute) History of Theo-en-Y gastric bypass (Acute) Lumbar disc herniation (Acute) GERD (gastroesophageal reflux disease) (Acute) Hypercholesterolemia (Acute) Anxiety and depression (Acute) Past Medical History Medical History (Updated 09/29/21 @ 15:08 by Earnestine Posada RN) ADHD Anemia Anxiety and depression Back pain Bipolar disorder DDD (degenerative disc disease) GERD (gastroesophageal reflux disease) Hx of small bowel obstruction Hypercholesterolemia Iron deficiency anemia Lumbar disc herniation Obesity Osteoarthritis PTSD (post-traumatic stress disorder) Right rotator cuff tear Family History Family History Father HTN (hypertension) DM (diabetes mellitus) Bladder cancer Prostate cancer Hyperlipidemia Mother No problems noted. Brother No problems noted. Sister No problems noted. Son No problems noted. Daughter No problems noted. Surgical History Surgical History History of adjustable gastric banding History of removal of laparoscopic gastric banding device History of Theo-en-Y gastric bypass Hx laparoscopic cholecystectomy Hx of section Hx of laminectomy Hx of laparoscopic gastric banding Hx of tonsillectomy S/P panniculectomy Social History Social History Household Members: Spouse, Children and Other Household Members Other:: dog and cat Housing: House Do you presently have visiting nurse or other home services: No Alcohol intake: never Patient Tobacco Use Status: Never used Tobacco e-Cigarette/Vaping Use: Never Used Use of substances other than those prescribed or required for medical reasons: No Substance Use Type: Opiates Advance Directives: No Advance Directives Information Provided: Yes service: No Current occupational status: disabled Sexual orientation: Straight/Heterosexual Cognitive needs: No Hearing needs: No Vision needs: Yes Meds Allergies Allergy/AdvReac Type Severity Reaction Status Date / Time amoxicillin [Amoxicillin] Allergy Severe HIVES, Verified 09/28/21 10:46 swelling Home Medications Medication Instructions Recorded Confirmed Last Taken Type ascorbic acid (vitamin C) 500 mg 1 tab PO DAILY 11/04/20 08/05/21 02/08/21 History tablet (Vitamin C) cyanocobalamin (vitamin B-12) 1,000 mcg IM QMONTH 11/04/20 08/05/21 01/21/21 History 1,000 mcg/mL injection solution thyroid (p[place]) 30 mg tablet 1 tab PO BID 11/04/20 08/05/21 02/08/21 History ([place] Thyroid) calcium citrate 1,000 mg tablet 1,000 mg PO DAILY 11/27/20 08/05/21 02/08/21 History matcnmmd-xziokpln-siit 45 mg-folic 1 cap PO DAILY 11/27/20 08/05/21 02/08/21 History acid 800 mcg-vit K 120 mcg capsule (Bariatric Multivitamins) thyroid ([place]) 15 mg tablet 15 mg PO BID 02/09/21 08/05/21 02/08/21 History ([place] Thyroid) lithium carbonate 300 mg capsule 600 mg PO DAILY 07/08/21 08/05/21 Unknown History lurasidone 20 mg tablet (Latuda) 20 mg PO BEDTIME 07/08/21 08/05/21 Unknown History aspirin 81 mg tablet,delayed 81 mg PO DAILY 09/28/21 Unknown History release (Adult Aspirin Regimen) Exam Exam Date and Time: September 30, 2021 1238 Height,Weight and Vital Signs: Height 5 ft 9 in Weight 102.058 kg Pertinent Lab Results Pertinent Lab Results: Laboratory Tests 08/06/21 08/06/21 20:38 20:38 WBC 6.9 Hgb 12.3 Hct 38.2 Plt Count 215 Sodium 138 Potassium 4.3 Chloride 107 Carbon Dioxide 24 BUN 18 H Creatinine 0.89 Narrative Narrative: EKG 04/2021 Vent. Rate : 096 BPM ? ? Atrial Rate : 096 BPM ?? P-R Int : 138 ms? QRS Dur : 084 ms ? ? QT Int : 370 ms ? ? ? P-R-T Axes : 041 -08 006 degrees ?? QTc Int : 467 ms ? Normal sinus rhythm Moderate voltage criteria for LVH, may be normal variant ( R in aVL , [place] product ) Borderline ECG When compared with ECG of 09-FEB-2021 15:36, Vent. rate has increased BY? 45 BPM ECHO 01/2021 Conclusions: - The left ventricular systolic function is normal.? The visually estimated ejection fraction is between 60-65%. ? - There is mild to moderate tricuspid valve regurgitation. ? ? ? Documented by User: Dung Dudley MD 10/01/21 13:04 [facility] Past Medical History Medical History (Updated 09/29/21 @ 15:08 by Earnestine Posada RN) ADHD Anemia Anxiety and depression Back pain Bipolar disorder DDD (degenerative disc disease) GERD (gastroesophageal reflux disease) Hx of small bowel obstruction Hypercholesterolemia Iron deficiency anemia Lumbar disc herniation Obesity Osteoarthritis PTSD (post-traumatic stress disorder) Right rotator cuff tear Family History Family History Father HTN (hypertension) DM (diabetes mellitus) Bladder cancer Prostate cancer Hyperlipidemia Mother No problems noted. Brother No problems noted. Sister No problems noted. Son No problems noted. Daughter No problems noted. Family history of problems with anesthesia: No Surgical History Surgical History History of adjustable gastric banding History of removal of laparoscopic gastric banding device History of Theo-en-Y gastric bypass Hx laparoscopic cholecystectomy Hx of section Hx of laminectomy Hx of laparoscopic gastric banding Hx of tonsillectomy S/P panniculectomy History of Problems with Anesthesia: No Social History Social History Household Members: Spouse, Children and Other Household Members Other:: dog and cat Housing: House Do you presently have visiting nurse or other home services: No Alcohol intake: never Patient Tobacco Use Status: Never used Tobacco e-Cigarette/Vaping Use: Never Used Use of substances other than those prescribed or required for medical reasons: No Substance Use Type: Opiates Advance Directives: No Advance Directives Information Provided: Yes service: No Current occupational status: disabled Sexual orientation: Straight/Heterosexual Cognitive needs: No Hearing needs: No Vision needs: Yes Meds Allergies Allergy/AdvReac Type Severity Reaction Status Date / Time amoxicillin [Amoxicillin] Allergy Severe HIVES, Verified 09/28/21 10:46 swelling Home Medications Medication Instructions Recorded Confirmed Last Taken Type ascorbic acid (vitamin C) 500 mg 1 tab PO DAILY 11/04/20 08/05/21 02/08/21 History tablet (Vitamin C) cyanocobalamin (vitamin B-12) 1,000 mcg IM QMONTH 11/04/20 08/05/21 01/21/21 History 1,000 mcg/mL injection solution thyroid ([place]) 30 mg tablet 1 tab PO BID 11/04/20 08/05/21 02/08/21 History ([place] Thyroid) calcium citrate 1,000 mg tablet 1,000 mg PO DAILY 11/27/20 08/05/21 02/08/21 History josxgvgh-vnkcfjvd-zqgq 45 mg-folic 1 cap PO DAILY 11/27/20 08/05/21 02/08/21 History acid 800 mcg-vit K 120 mcg capsule (Bariatric Multivitamins) thyroid ([place]) 15 mg tablet 15 mg PO BID 02/09/21 08/05/21 02/08/21 History ([place] Thyroid) lithium carbonate 300 mg capsule 600 mg PO DAILY 07/08/21 08/05/21 Unknown History lurasidone 20 mg tablet (Latuda) 20 mg PO BEDTIME 07/08/21 08/05/21 Unknown History aspirin 81 mg tablet,delayed 81 mg PO DAILY 09/28/21 Unknown History release (Adult Aspirin Regimen) Exam Airway Mallampati Class: II TM Dist: >3cm Neck ROM: Full Loose/Missing/Broken Teeth: Yes Assessment and Plan Assessment Anesthesia Assessment: Anesthesia Plan Discussed and Chart Reviewed Final Anesthetic Review Family History of Problems with Anesthesia: No History of Problems with Anesthesia: No NPO: Yes ASA Class: III Final Preanesthetic Review: No Changes in Pt Med Stat, Meds/Allgs Chart Reviewed, Consent Obtained/Reviewed and Anes Risks/Benef Reviewed Patient Risk: Intermediate Procedure Risk: Low Anesthetic Plan Anesthetic Plan: GA and MAC: Disposition: Standard PACU
[2021-10-01] VITALS (7 sets, daily range): BP systolic 132–157; BP diastolic 78–91; PULSE 69–86; RESP 16; TEMP 36.1–36.7; O2SAT 95–100; BMI 38.5
[2021-10-01] MEDS: Lactated Ringers 1,000 ML 100 ML IVCONT (11:45)
--- NOTE | 2021-10-01 11:58 | P.HPSUR_ITS ---
Pre-Procedural Eval Section A Date of Service: 10/01/21 The patient is an INPATIENT: No Section B Chief Complaint: reflux disease,noninfective gastro and colitis Relevant Family History (Specify if Yes): No Present Medications: see Short Stay Collaborative assessment Medical History: Significant History (ADHD Anemia Anxiety and depression Back pain Bipolar disorder DDD (degenerative disc disease) GERD (gastroesophageal reflux disease) Hx of small bowel obstruction Hypercholesterolemia Iron deficiency anemia Lumbar disc herniation Obesity Osteoarthritis PTSD (post- traumatic stress disorder) Right rot) History of Previous Operations: Relevant previous surgery/procedure and date(s) (History of adjustable gastric bandingHistory of removal of laparoscopic gastric banding deviceHistory of Theo-en-Y gastric bypassHx laparoscopic cholecystectomyHx of sectionHx of laminectomyHx of laparoscopic gastric bandingHx of tonsillectomyS/P panniculectomy) Allergies: Allergies Allergy/AdvReac Type Severity Reaction Status Date / Time amoxicillin [Amoxicillin] Allergy Severe HIVES, Verified 09/28/21 10:46 swelling Review of Systems Sugical H&P ROS: Negative: Constitution, Cardiovascular, Respiratory, Neurological, Psychiatric, Hem-Onc, Allergic/Immunologic, Genitourinary, Integumentary, Endocrine and Eyes/Ears/Nose/Throat and Yes, Specify: Gastrointestinal (abd pain, nausea and diarrhea ) and Musculoskeletal (chronic lower back pain ) Exam Surgical H&P Exam: Normal: HEENT, Normal: Heart, Normal: Lungs, Normal: Extremities, Normal: Abdomen and Normal: Neurological and Significant Findings: Skin (L wood bruising ) Plan Diagnosis/Plan: Unchanged (EGD and colonoscopy ) I have reviewed the history and physical and performed a pertinent physical examination on my patient. No changes have occurred unless specified.
--- NOTE | 2021-10-01 12:05 | P.OP_ITS ---
Operative Note Operative Note Date of Service: 10/01/21 Narrative: Procedure Date: Procedure: Esophagogastroduodenoscopy and colonoscopy Endoscopist: Becca Schaefer MD Indication: Abd pain, nausea, chronic non bloody diarrhea Anesthesia Provider: Dr Dudley Anesthesia Type: General anesthesia. ?? EGD Procedure:?? The procedure, indications, preparation and potential complications were reviewed with the patient, who indicated understanding and gave written informed consent to proceed. A physical exam was performed. The patient was electively intubated for airway protection by the anesthesiologist. The endoscope was introduced through the mouth, and advanced to the rian limb. The mucosa was carefully examined on slow withdrawal of the endoscope. The patient tolerated the procedure well. There were no immediate complications.? ? EGD Findings:?Esophagus:? Normal mucosa noted in the entire esophagus. The Z line was at 35 cm. ?Stomach:? Normal mucosa was noted in the stomach. Evidence of RYGB. The length of the gastric pouch is 7cm. The gastrojejunal anastomosis as located at 42cm. No stricture was felt and scoped easily traversed across the anastomosis. Using biopsy forceps, the diameter of the stoma was measured at 13 mm. Random gastric biopsies were taken to rule out H Pylori infection and sent in path jar labeled A. ?Duodenum:? N/A ?Jejunum:? Normal mucosa. EGD Impressions:?Normal esophagus ?Normal gastric mucosa.7 cm gastric pouch. (biopsy) ?Normal jejunum Colonoscopy Indication: Chronic Diarrhea Instrument: Lolay [id number] Procedure:IV medications were administered by the anesthesia provider in attendance. A digital rectal exam was performed which was abnormal due to finding of hemorrhoids. The colonoscope was then inserted through the anus and advanced through the colon to the cecum at 70 cm and terminal ileum. Mucosa was carefully examined under high definition white light as the instrument was slowly withdrawn in a retrograde panoramic fashion. Retroflexion was performed in rectum. The procedure was not difficult. There were no immediate obvious complications. The quality of the prep was BBPS: 1+2+3 = inadequate due to score of 1 in R colon. Withdrawal time 27 minutes. Limitations: No limitations. Findings: Mucosa: Normal to cecum and terminal ileum. Random biopsies were taken to r/o microscopic colitis and sent in path jar labeled E. Protruding lesions: * 2 sessile polyp of size 4-10 mm in cecum. The polyps were completely removed and retrieved and sent in path jar labeled C. * 3 sessile polyp of size 5-7 mm in ascending colon. The polyps were completely removed and retrieved and sent in path jar labeled D. * 2 sessile polyp of size 4-5 mm in sigmoid colon. The polyp was completely removed and retrieved and sent in path jar labeled B. * Medium external hemorrhoids without stigmata of recent bleeding. Impression: 1. Normal colon mucosa (biopsy) 2. Total of 7 polyps removed from cecum ascending and sigmoid colon. 3. External hemorrhoids Recommendations ?Follow biopsy results. Our office will call or send a letter with results within 7-10 days. ?If H pylori +, patient will be prescribed eradication therapy followed by test of cure. ?If colon biopsies + for microscopic colitis will review indication for budesonide. In the meantime, advised to limit artificial sweeteners as those could be contributing to diarrhea as well. Patient also takes lithium and is overdue for monitoring. Encouraged to review with her psychiatrist, as abnormal levels may potentially cause dyspepsia, nausea and diarrhea. ?Repeat colonoscopy within a year irrespective of path results due to inadequate prep. ?Avoid NSAIDs and smoking. ?Above has been reviewed with the patient. Educational hand outs were provided at discharge. Follow up in the GI office as scheduled.
== END 2021-10-01 15:01 | disposition home or self-care (01) ==
PROVIDERS: PCP Internal Medicine; Visit Provider Internal Medicine
PROC: (CPT 45385; principal; 2021-10-01 12:00)
DX: K52.9 Noninfective gastroenteritis and colitis, unspecified (principal); D12.0 Benign neoplasm of cecum; D12.2 Benign neoplasm of ascending colon; D12.5 Benign neoplasm of sigmoid colon; K64.8 Other hemorrhoids; K64.4 Residual hemorrhoidal skin tags; K21.9 Gastro-esophageal reflux disease without esophagitis; D50.9 Iron deficiency anemia, unspecified; F90.9 Attention-deficit hyperactivity disorder, unspecified type; F31.9 Bipolar disorder, unspecified; E66.9 Obesity, unspecified; Z68.33 Body mass index [BMI] 33.0-33.9, adult; Z98.84 Bariatric surgery status; Z98.0 Intestinal bypass and anastomosis status; Z90.49 Acquired absence of other specified parts of digestive tract; E78.00 Pure hypercholesterolemia, unspecified; Z79.899 Other long term (current) drug therapy; Z88.1 Allergy status to other antibiotic agents
CPT/HCPCS: 45385; 45380; 43239; 88305; 88342; J2550; J3010

== ENCOUNTER 2021-10-23 08:24 | Outpatient (REF) | payer OTHER, SELFPAY ==
[2021-10-23 08:49] LABS: MANUAL DIFF FLAG NO
[2021-10-23 09:30] LABS: Basophils Percent Auto 0.5 % (0-2); Eosinophils Absolute Auto 0.3 X10*3/uL (0.0-0.4); Eosinophils Percent Auto 3.7 % (0-4); Hematocrit 45.1 % (37.0-47.0); Hemoglobin 14.5 g/dl (12.0-16.0); Imm Gran Abs Auto 0.02 X10*3/uL (0.00-0.03); Imm Gran Pct Auto 0.3 % (0.0-0.4); Lymphocytes Absolute Auto 2.2 X10*3/uL (1.2-4.9); Lymphocytes Percent Auto 28.1 % (20-40); Mean Corpuscular HGB Conc 32.2 g/dl (31.0-35.0); Mean Corpuscular Hemoglobin 28.5 pg (27.0-33.0); Mean Corpuscular Volume 88.6 fL (80.0-98.0); Mean Platelet Volume 10.4 fL (9.4-12.3); Monocytes Absolute Auto 0.6 X10*3/uL (0.1-1.2); Neutrophils Absolute Auto 4.7 x10*3/uL (2.0-8.3); Neutrophils Percent Auto 60.4 % (45-73); Platelet Count 278 X10*3/uL (160-400); Red Blood Count 5.09 X10*6/uL (4.20-5.50); Red Cell Distribution Width 13.3 % (11.0-16.0); White Blood Count 7.8 X10*3/uL (4.8-10.8)
[2021-10-23 09:41] LABS: Estimated Average Glucose 103 mg/dL; Hemoglobin A1c % 5.2 %
[2021-10-23 10:08] LABS: Alanine Aminotransferase 12 U/L (0-31); Albumin Level 4.5 g/dL (3.5-5.0); Alkaline Phosphatase 109 U/L (39-117); Anion Gap 15 (12-20); Aspartate Amino Transferase 18 U/L (5-31); Bilirubin Total 0.8 mg/dL (0.0-1.0); Blood Urea Nitrogen 12 mg/dL (9-16); Calcium 9.5 mg/dL (8.4-10.2); Carbon Dioxide 22 mmol/L (22-29); Chloride 108 mmol/L (96-108); Cholesterol 276 mg/dL; Estimated Glomerular Filt Rate > 60; Glucose Random 108 mg/dL (60-115); HDL Cholesterol 63 mg/dL; LDL Cholesterol Calculated 179 mg/dl; Lipase 38 U/L (8-78); Potassium 4.2 mmol/L (3.3-5.1); Sodium 141 mmol/L (135-145); Total Protein 7.4 g/dL (6.5-8.0); Triglycerides 174 mg/dL
[2021-10-23 10:12] LABS: Amylase 52 U/L (28-100)
[2021-10-23 10:18] LABS: Free T4 (Free Thyroxine) 0.77 ng/dL (0.71-1.85); Thyroid Stimulating Hormone 1.27 uIU/mL (0.32-4.0)
[2021-10-23 10:24] LABS: Vitamin D 25-OH Total 30.9 ng/mL (>30)
== END 2021-10-23 08:25 | disposition home or self-care (01) ==
LOC: HO.LAB 08:24
PROVIDERS: Nurse Practitioner Family; PCP Internal Medicine; Visit Provider Internal Medicine
DX: R10.9 Unspecified abdominal pain (principal); E78.00 Pure hypercholesterolemia, unspecified; R79.89 Other specified abnormal findings of blood chemistry
CPT/HCPCS: 36415; 80053; 80061; 82150; 82306; 83036; 83690; 84439; 84443; 85025

== ENCOUNTER 2021-10-24 09:02 | Outpatient (REF) | payer OTHER, SELFPAY | END 2021-10-24 09:03 | disposition home or self-care (01) | LOC: HO.LABR 09:02 | PROVIDERS: PCP Internal Medicine; Visit Provider Psychiatry & Neurology Psychiatry | DX: E03.9 Hypothyroidism, unspecified (principal); E78.00 Pure hypercholesterolemia, unspecified | CPT/HCPCS: 36415; 80178 ==

== ENCOUNTER 2021-11-02 11:29 | Outpatient (REF) | payer OTHER, SELFPAY ==
[2021-11-02 12:49] LABS: Iron 102 mcg/dL (30-160); Percent Iron Saturation 26 % (15-50); Total Iron Binding Capacity 397 mcg/dL (228-428); Unsaturated Iron Binding 295 ug/dL
[2021-11-02 13:08] LABS: Ferritin 49 ng/mL (10-250)
[2021-11-05 06:26] LABS: Copper, serum 143 mcg/dL (70-175); Zinc 65 mcg/dL (60-130)
[2021-11-06 02:36] LABS: Vitamin A 68 mcg/dL (38-98)
[2021-11-06 23:11] LABS: Alpha-Tocopherol 15.3 mg/L (5.7-19.9); Beta-Gamma Tocopherol 1.1 mg/L (<=4.3)
[2021-11-07 16:37] LABS: Vitamin K1 245 pg/mL (130-1500)
== END 2021-11-02 11:30 | disposition home or self-care (01) ==
LOC: HO.LAB 11:29
PROVIDERS: PCP Internal Medicine; Visit Provider Internal Medicine
DX: Z98.84 Bariatric surgery status (principal)
CPT/HCPCS: 36415; 82525; 82728; 83540; 84425; 84446; 84590; 84597; 84630

== ENCOUNTER 2021-11-11 11:14 | Outpatient (REF) | payer OTHER, SELFPAY ==
[2021-11-11 11:52] LABS: Estimated Average Glucose 103 mg/dL; Hemoglobin A1c % 5.2 %
[2021-11-11 12:01] LABS: Glucose Fasting 94 mg/dL (60-99)
[2021-11-11 12:29] LABS: Insulin 4 uU/mL (2-29); T4 Thyroxine 4.5 ug/dL (4.5-12.0); Thyroid Stimulating Hormone 4.49 uIU/mL (0.32-4.0); Vitamin D 25-OH Total 31.7 ng/mL (>30)
[2021-11-13 12:51] LABS: T3 Uptake 27 % (22-35)
[2021-11-13 14:47] LABS: Triiodothyronine T3 Free 2.7 pg/mL (2.3-4.2); Triiodothyronine T3 Total 121 ng/dL (76-181)
== END 2021-11-11 11:15 | disposition home or self-care (01) ==
LOC: HO.LAB 11:14
PROVIDERS: PCP Internal Medicine; Visit Provider Psychiatry & Neurology Psychiatry
DX: E55.9 Vitamin D deficiency, unspecified (principal)
CPT/HCPCS: 36415; 82306; 82947; 83036; 83525; 84436; 84443; 84479; 84480; 84481

== ENCOUNTER 2021-11-19 09:34 | Outpatient (REF) | payer OTHER, SELFPAY ==
[2021-11-19 10:59] LABS: Lithium 0.54 mmol/L (0.60-1.20)
[2021-11-19 11:10] LABS: Alanine Aminotransferase 12 U/L (0-31); Albumin Level 4.8 g/dL (3.5-5.0); Alkaline Phosphatase 126 U/L (39-117); Anion Gap 16 (12-20); Aspartate Amino Transferase 19 U/L (5-31); Bilirubin Total 0.7 mg/dL (0.0-1.0); Blood Urea Nitrogen 12 mg/dL (9-16); Calcium 10.2 mg/dL (8.4-10.2); Carbon Dioxide 25 mmol/L (22-29); Chloride 101 mmol/L (96-108); Estimated Glomerular Filt Rate > 60; Glucose Random 138 mg/dL (60-115); Potassium 5.1 mmol/L (3.3-5.1); Sodium 137 mmol/L (135-145); Total Protein 7.7 g/dL (6.5-8.0)
[2021-11-23 13:31] LABS: Vitamin B1 29 nmol/L (8-30)
== END 2021-11-19 09:35 | disposition home or self-care (01) ==
LOC: HO.LABR 09:34
PROVIDERS: Internal Medicine; PCP Internal Medicine; Visit Provider Psychiatry & Neurology Psychiatry
DX: E78.00 Pure hypercholesterolemia, unspecified (principal); F31.9 Bipolar disorder, unspecified; Z98.84 Bariatric surgery status
CPT/HCPCS: 36415; 80053; 80178; 84425

== ENCOUNTER 2021-11-19 15:44 | Emergency (ER) | payer OTHER, SELFPAY ==
--- NOTE | ~2021-11-19 | CT_ITS ---
EXAMINATION: CT ABDOMEN AND PELVIS WITHOUT CONTRAST CLINICAL INFORMATION: Nausea, vomiting, and diarrhea. Bypass surgery. COMPARISON: Most recent CT abdomen/pelvis dated 08/06/2021. TECHNIQUE: Multidetector volumetric imaging was performed from the superior aspect of the liver through the pubic symphysis. Sagittal and coronal reformatted images were obtained on the technologist's workstation. This CT examination was performed using dose optimization techniques as appropriate, variously including the following: *Automated exposure control. *Adjustment of mA and/or kV according to patient size (this includes techniques or standardized protocols for targeted exams where dose is matched to indication/reason for exam; i.e. extremities or head). *Use of iterative reconstruction technique. DLP: 949 mGy-cm FINDINGS: LUNG BASES: The visualized lung bases are unremarkable. LIVER, GALLBLADDER, AND BILIARY TREE: The liver is normal in size, shape, and attenuation. No focal hepatic lesion or biliary ductal dilatation is present. Status post cholecystectomy. PANCREAS: Atrophic. SPLEEN: Unremarkable. ADRENAL GLANDS: Unremarkable. KIDNEYS AND URETERS: The kidneys are normal in size, shape, and attenuation. No hydronephrosis, hydroureter, or calculi seen. No perinephric stranding. BLADDER: Nondistended and unremarkable. GASTROINTESTINAL TRACT: Postsurgical change consistent with Theo-en-Y gastric bypass. Small sliding hiatal hernia, unchanged. Unremarkable gastrojejunal and jejunojejunal anastomoses. No small or large bowel obstruction. No bowel wall thickening or inflammatory change. PERITONEAL CAVITY: No intra-abdominal free air or free fluid. No intra-abdominal mass or organized fluid collection/abscess formation. ABDOMINAL WALL: No significant hernia is appreciated. LYMPH NODES: No significant lymphadenopathy. VASCULAR: Unremarkable. PELVIC VISCERA: The uterus and adnexa are unremarkable. OSSEOUS STRUCTURES: No acute osseous abnormality. CT/CT abdomen pelvis wo IV con IMPRESSION: 1. Redemonstration of postsurgical change consistent with Theo-en-Y gastric bypass. No associated leak or obstruction. No bowel wall thickening or inflammatory change. Sliding hiatal hernia, unchanged. 2. Additional chronic findings are unchanged. Fleischner guidelines were followed.
[2021-11-19 15:45] VITALS: BP 129/92; PULSE 89; RESP 20; TEMP 36.7; O2SAT 95; BMI 36.9
[2021-11-19 15:59] LABS: MANUAL DIFF FLAG NO
[2021-11-19 16:01] LABS: Basophils Percent Auto 0.3 % (0-2); Eosinophils Absolute Auto 0.1 X10*3/uL (0.0-0.4); Eosinophils Percent Auto 0.8 % (0-4); Hemoglobin 14.4 g/dl (12.0-16.0); Imm Gran Abs Auto 0.03 X10*3/uL (0.00-0.03); Imm Gran Pct Auto 0.3 % (0.0-0.4); Lymphocytes Absolute Auto 1.5 X10*3/uL (1.2-4.9); Lymphocytes Percent Auto 17.2 % (20-40); Mean Corpuscular HGB Conc 32.7 g/dl (31.0-35.0); Mean Corpuscular Volume 88.7 fL (80.0-98.0); Mean Platelet Volume 9.9 fL (9.4-12.3); Monocytes Absolute Auto 0.5 X10*3/uL (0.1-1.2); Monocytes Percent Auto 5.5 % (2-11); Neutrophils Absolute Auto 6.7 x10*3/uL (2.0-8.3); Neutrophils Percent Auto 75.9 % (45-73); Platelet Count 299 X10*3/uL (160-400); Red Blood Count 4.96 X10*6/uL (4.20-5.50); Red Cell Distribution Width 13.5 % (11.0-16.0); White Blood Count 8.8 X10*3/uL (4.8-10.8)
[2021-11-19 16:20] LABS: Alanine Aminotransferase 12 U/L (0-31); Albumin Level 4.5 g/dL (3.5-5.0); Alkaline Phosphatase 120 U/L (39-117); Anion Gap 17 (12-20); Aspartate Amino Transferase 17 U/L (5-31); Bilirubin Direct 0.3 mg/dL (0.0-0.5); Bilirubin Total 0.8 mg/dL (0.0-1.0); Blood Urea Nitrogen 12 mg/dL (9-16); Calcium 9.9 mg/dL (8.4-10.2); Carbon Dioxide 24 mmol/L (22-29); Chloride 101 mmol/L (96-108); Creatinine Clr Calc Pharmacy 95.5; Estimated Glomerular Filt Rate > 60; Glucose Random 147 mg/dL (60-115); Potassium 4.5 mmol/L (3.3-5.1); Sodium 137 mmol/L (135-145); Total Protein 7.2 g/dL (6.5-8.0)
[2021-11-19 16:39] LABS: COVID-19 Test Negative (Negative); IDNOW Serial# 08D9AD1C
[2021-11-19] MEDS: Ondansetron ODT 4 MG TAB.RAPDIS TRANSLINGU (16:59)
--- NOTE | 2021-11-19 19:22 | ED_ITS ---
HPI - Abdominal Pain General Chief Complaint: Abdominal Pain Stated Complaint: N/V/D Time Seen by Provider: 11/19/21 19:06 Source: patient Mode of arrival: ambulatory Limitations: no limitations History of Present Illness HPI narrative: 61-year-old female presents with 3 days of nausea, vomiting, dry heaving, stoma ch spasms, headache, intermittent sweating and chills. Patient states that she is status post gastric bypass approximately 20 years ago. She states her anxiety is out of control at this time and has to urinate frequently. She denies chest pain and pressure, palpitations, shortness of breath, edema, weakness, lethargy, changes in vision, cough and changes in vision. MD elicited complaint: abdominal pain Pertinent past history: other (Status post gastric bypass 20 years ago) Onset (ago): day(s) (3) Pain Consistency: intermittent Location: diffuse Severity: severe Pain scale (0-10): 8 Quality: aching Exacerbating factors: vomiting and movement Relieving factors: nothing Associated symptoms: nausea, vomiting, chills and dysuria Related Data Home Medications Medication Instructions Recorded Confirmed ascorbic acid (vitamin C) 500 mg 1 tab PO DAILY 11/04/20 08/05/21 tablet (Vitamin C) cyanocobalamin (vitamin B-12) 1,000 mcg IM QMONTH 11/04/20 08/05/21 1,000 mcg/mL injection solution thyroid (pork) 30 mg tablet 1 tab PO BID 11/04/20 08/05/21 ([place] Thyroid) calcium citrate 1,000 mg tablet 1,000 mg PO DAILY 11/27/20 08/05/21 [id number] 45 mg-folic 1 cap PO DAILY 11/27/20 08/05/21 acid 800 mcg-vit K 120 mcg capsule (Bariatric Multivitamins) thyroid (pork) 15 mg tablet 15 mg PO BID 02/09/21 08/05/21 ([place] Thyroid) lithium carbonate 300 mg capsule 600 mg PO DAILY 07/08/21 08/05/21 lurasidone 20 mg tablet (Latuda) 20 mg PO BEDTIME 07/08/21 08/05/21 aspirin 81 mg tablet,delayed 81 mg PO DAILY 09/28/21 release (Adult Aspirin Regimen) carisoprodol 350 mg tablet 1 tab PO QID 09/29/22 cholecalciferol (vitamin D3) 50 1 tab PO DAILY 11/19/21 mcg (2,000 unit) tablet diazepam 5 mg tablet 1 tab PO BEDTIME 11/19/21 duloxetine 30 mg capsule,delayed 1 cap PO DAILY 11/19/21 release lithium carbonate 300 mg 2 tab PO BEDTIME 11/19/21 tablet,extended release Previous Rx's Medication Instructions Recorded nitrofurantoin 100 mg PO Q12H 7 days #14 caps 11/19/21 monohydrate/macrocrystals 100 mg capsule (Macrobid) Allergies Allergy/AdvReac Type Severity Reaction Status Date / Time amoxicillin [Amoxicillin] Allergy Severe HIVES, Verified 11/02/21 10:20 swelling Review of Systems Review of Systems Constitutional: No Fever, positive Chills ENT/Mouth: No Ear Pain, No Hoarseness, No sore throat Eyes: No Eye Pain, No Swelling, No Redness, No Foreign Body Cardiovascular: No Chest Pain, No SOB Respiratory: No Cough, No Dyspnea Gastrointestinal: Positive Nausea, positive Vomiting, No Diarrhea, positive abdominal Pain Genitourinary: Positive frequency, No Dysuria, No Hematuria Musculoskeletal: No joint pain, No Myalgias, No Joint Swelling Skin: No Skin lacerations, No rash Neuro: No Weakness, No Numbness, No Paresthesias, No Loss of Consciousness, No Dizziness, No Headache Psych: No Anxiety/Panic, No Depression Heme/Lymph: no easy bruising, no Lymphadenopathy Endocrine: No Polyuria, No Polydipsia Yes all other systems are reviewed and are negative PMFSH Past Medical History Attestation statement: The following information was validated with the patient. Source: old records reviewed Medical History ADHD Anemia Anxiety and depression Back pain Bipolar disorder DDD (degenerative disc disease) GERD (gastroesophageal reflux disease) Hx of small bowel obstruction Hypercholesterolemia Iron deficiency anemia Lumbar disc herniation Obesity Osteoarthritis PTSD (post-traumatic stress disorder) Right rotator cuff tear Surgical History History of adjustable gastric banding History of esophagogastroduodenoscopy (EGD) History of removal of laparoscopic gastric banding device History of Theo-en-Y gastric bypass Hx laparoscopic cholecystectomy Hx of section Hx of colonoscopy Hx of laminectomy Hx of laparoscopic gastric banding Hx of tonsillectomy S/P panniculectomy Family History Family History Father HTN (hypertension) DM (diabetes mellitus) Bladder cancer Prostate cancer Hyperlipidemia Mother No problems noted. Brother No problems noted. Sister No problems noted. Son No problems noted. Daughter No problems noted. Social History Social History Household Members: Spouse, Children and Other Household Members Other:: dog and cat Housing: House Do you presently have visiting nurse or other home services: No Alcohol intake: never Patient Tobacco Use Status: Never used Tobacco e-Cigarette/Vaping Use: Never Used Substance Use Type: Opiates Advance Directives: Yes Advance Directives on File: Yes Advance Directives Date on File: 02/10/21 service: No Current occupational status: disabled Sexual orientation: Straight/Heterosexual Cognitive needs: No Hearing needs: No Vision needs: Yes Physical Exam ED Vital Signs: Vital Signs - 24 hr 11/19/21 15:45 11/19/21 19:26 11/19/21 20:03 Temperature 98.0 F 98.3 F 98.4 F Pulse Rate 89 82 78 Respiratory Rate 20 19 18 Blood Pressure 129/92 H 158/99 H 172/92 H Pulse Oximetry 95 98 99 Oxygen Delivery Method Room Air Room Air Room Air 11/19/21 21:38 Temperature 98.7 F Pulse Rate 88 Respiratory Rate 16 Blood Pressure 150/85 H Pulse Oximetry 16 L Oxygen Delivery Method Room Air BMI result Body Mass Index 36.9 Appearance: Alert. Oriented X3. Anxious Eyes: Pupils equal, round and reactive to light. ENT: Pharynx normal. Neck: Normal inspection. Neck supple. CVS: Normal heart rate and rhythm. Pulses normal. Respiratory: No respiratory distress. Breath sounds normal. Abdomen: Soft and diffusely tender. Nondistended. Obese. Skin: Skin warm and dry. Normal skin color. Normal skin turgor. Extremities: No lower extremity edema. Moves all extremities against resistance. Gait well-balanced well coordinated. Neuro: No motor deficit. No sensory deficit. Cranial nerves 2-12 intact. Course Course Course Narrative: 61-year-old female presents with 3 days of abdominal pain, nausea, vomiting, muscle spasms in the abdomen, intermittent chills and diaphoresis. Patient states to have significant anxiety at this time and is asking for Ativan which she takes at home regularly. She appear nontoxic, is afebrile, even unlabored respirations, and anxious. Labs are drawn while patient was in the emergency department waiting room with findings of an elevated glucose and mildly elevated alk phos. Considering patient is diffusely tender, has a history of gastric bypass 20 years ago, will order CT scan of abdomen and pelvis. Urinalysis is pending. 20:50 CT scan negative for acute findings. Urinalysis positive for UTI. Will treat with Macrobid. Patient verbalized understanding of and agrees to plan of care discharge home. Patient verbalized understanding of and agrees to plan of care discharge home. Verbalized understanding of signs and symptoms indicating need for emergent intervention. MDM - Abdominal Pain Differential Diagnosis Differential diagnosis: Likely abdominal pain, acute appendicitis, bowel perforation, calculus of kidney, diverticulitis, gastroenteritis, gastritis, pancreatitis and small bowel obstruction Medical Records Attestation: I reviewed the patient's medical records. Lab Data Attestation: I reviewed the patient's lab results. Result diagrams: 11/19/21 15:53 11/19/21 15:53 Labs: Lab Results 11/19/21 11/19/21 11/19/21 Range/Units 15:53 15:53 15:54 WBC 8.8 (4.8-10.8) X10*3/uL RBC 4.96 (4.20-5.50) X10*6/uL Hgb 14.4 (12.0-16.0) g/dl Hct 44.0 (37.0-47.0) % MCV 88.7 (80.0-98.0) fL MCH 29.0 (27.0-33.0) pg MCHC 32.7 (31.0-35.0) g/dl RDW 13.5 (11.0-16.0) % Plt Count 299 (160-400) X10*3/uL MPV 9.9 (9.4-12.3) fL Immature Gran % (Auto) 0.3 (0.0-0.4) % Neut % (Auto) 75.9 H (45-73) % Lymph % (Auto) 17.2 L (20-40) % [place] % (Auto) 5.5 (2-11) % Eos % (Auto) 0.8 (0-4) % Baso % (Auto) 0.3 (0-2) % Lymph # (Auto) 1.5 (1.2-4.9) X10*3/uL [place] # (Auto) 0.5 (0.1-1.2) X10*3/uL Eos # (Auto) 0.1 (0.0-0.4) X10*3/uL Baso # (Auto) 0.0 (0.0-0.2) X10*3/uL Abs Immat Gran (auto) 0.03 (0.00-0.03) X10*3/uL Absolute Neuts (auto) 6.7 (2.0-8.3) x10*3/uL Absolute Nucleated RBC 0.000 (0.0-0.012) X10*3/uL Nucleated RBC % (auto) 0.0 (0.0-0.2) /100WBC Sodium 137 (135-145) mmol/L Potassium 4.5 (3.3-5.1) mmol/L Chloride 101 (96-108) mmol/L Carbon Dioxide 24 (22-29) mmol/L Anion Gap 17 (12-20) BUN 12 (9-16) mg/dL Creatinine 0.82 (0.5-1.4) mg/dL Estim Creat Clear Calc 95.5 Estimated GFR > 60 Random Glucose 147 H (60-115) mg/dL Calcium 9.9 (8.4-10.2) mg/dL Total Bilirubin 0.8 (0.0-1.0) mg/dL Direct Bilirubin 0.3 (0.0-0.5) mg/dL AST 17 (5-31) U/L ALT 12 (0-31) U/L Alkaline Phosphatase 120 H (39-117) U/L Total Protein 7.2 (6.5-8.0) g/dL Albumin 4.5 (3.5-5.0) g/dL Lipase 78 (8-78) U/L Urine Color Urine Appearance Urine pH (5.0-9.0) Ur Specific [place] (1.005-1.025) Urine Protein (Neg-Trace) mg/dL Urine Glucose (UA) (Negative) mg/dL Urine Ketones (Negative) mg/dL Urine Blood (Negative) Urine Nitrite (Negative) Ur Leukocyte Esterase (Negative) Urine RBC (0-2) /HPF Urine WBC (0-5) /HPF Ur Squamous Epith Cells (0-2) /HPF Urine Bacteria (None Seen) Hyaline Casts (0-2) /LPF COVID-19 ([facility]) Negative (Negative) COVID-19 Clin Com See Note 11/19/21 Range/Units 19:44 WBC (4.8-10.8) X10*3/uL RBC (4.20-5.50) X10*6/uL Hgb (12.0-16.0) g/dl Hct (37.0-47.0) % MCV (80.0-98.0) fL MCH (27.0-33.0) pg MCHC (31.0-35.0) g/dl RDW (11.0-16.0) % Plt Count (160-400) X10*3/uL MPV (9.4-12.3) fL Immature Gran % (Auto) (0.0-0.4) % Neut % (Auto) (45-73) % Lymph % (Auto) (20-40) % [place] % (Auto) (2-11) % Eos % (Auto) (0-4) % Baso % (Auto) (0-2) % Lymph # (Auto) (1.2-4.9) X10*3/uL [place] # (Auto) (0.1-1.2) X10*3/uL Eos # (Auto) (0.0-0.4) X10*3/uL Baso # (Auto) (0.0-0.2) X10*3/uL Abs Immat Gran (auto) (0.00-0.03) X10*3/uL Absolute Neuts (auto) (2.0-8.3) x10*3/uL Absolute Nucleated RBC (0.0-0.012) X10*3/uL Nucleated RBC % (auto) (0.0-0.2) /100WBC Sodium (135-145) mmol/L Potassium (3.3-5.1) mmol/L Chloride (96-108) mmol/L Carbon Dioxide (22-29) mmol/L Anion Gap (12-20) BUN (9-16) mg/dL Creatinine (0.5-1.4) mg/dL Estim Creat Clear Calc Estimated GFR Random Glucose (60-115) mg/dL Calcium (8.4-10.2) mg/dL Total Bilirubin (0.0-1.0) mg/dL Direct Bilirubin (0.0-0.5) mg/dL AST (5-31) U/L ALT (0-31) U/L Alkaline Phosphatase (39-117) U/L Total Protein (6.5-8.0) g/dL Albumin (3.5-5.0) g/dL Lipase (8-78) U/L Urine Color Dark Yellow Urine Appearance Clear Urine pH 5.5 (5.0-9.0) Ur Specific [place] >= 1.030 H (1.005-1.025) Urine Protein 100 (2+) H (Neg-Trace) mg/dL Urine Glucose (UA) Negative (Negative) mg/dL Urine Ketones 80 (Negative) mg/dL Urine Blood Moderate (2+) H (Negative) Urine Nitrite Negative (Negative) Ur Leukocyte Esterase Small (1+) H (Negative) Urine RBC 6-10 H (0-2) /HPF Urine WBC 11-20 H (0-5) /HPF Ur Squamous Epith Cells 3-5 (0-2) /HPF Urine Bacteria None Seen (None Seen) Hyaline Casts 0-2 (0-2) /LPF COVID-19 ([facility]) (Negative) COVID-19 Clin Com Imaging Data CT scan - abdomen: Attestation: I personally reviewed and interpreted this imaging study as follows: Radiologist's impression: FINDINGS: LUNG BASES: The visualized lung bases are unremarkable.? LIVER, GALLBLADDER, AND BILIARY TREE: The liver is normal in size, shape, and attenuation. No focal hepatic lesion or biliary ductal dilatation is present. Status post cholecystectomy.? PANCREAS: Atrophic.? SPLEEN: Unremarkable.? ADRENAL GLANDS: Unremarkable.? KIDNEYS AND URETERS: The kidneys are normal in size, shape, and attenuation. No hydronephrosis, hydroureter, or calculi seen. No perinephric stranding. ? BLADDER: Nondistended and unremarkable.? GASTROINTESTINAL TRACT: Postsurgical change consistent with Theo-en-Y gastric bypass. Small sliding hiatal hernia, unchanged. Unremarkable gastrojejunal and jejunojejunal anastomoses. No small or large bowel obstruction. No bowel wall thickening or inflammatory change. PERITONEAL CAVITY: No intra-abdominal free air or free fluid. No intra-abdominal mass or organized fluid collection/abscess formation.? ABDOMINAL WALL: No significant hernia is appreciated.? LYMPH NODES: No significant lymphadenopathy. VASCULAR: Unremarkable. PELVIC VISCERA: The uterus and adnexa are unremarkable.? OSSEOUS STRUCTURES: No acute osseous abnormality.? CT/CT abdomen pelvis wo IV con IMPRESSION: 1. Redemonstration of postsurgical change consistent with Theo-en-Y gastric bypass. No associated leak or obstruction. No bowel wall thickening or inflammatory change. Sliding hiatal hernia, unchanged. ? 2. Additional chronic findings are unchanged.? ? Fleischner guidelines were followed. Discharge Plan Discharge Clinical Impression: Abdominal pain, Nausea & vomiting, Urinary tract infection Patient Disposition: Home, Self-Care Instructions: Urinary Tract Infection in Women (ED), Acute Nausea and Vomiting (ED), Abdominal Pain (ED) Additional Instructions: You were evaluated for abdominal pain nausea and vomiting. CT scan of abdomen and pelvis is negative for acute findings requiring emergent intervention. Urinalysis is positive for UTI. Please take Macrobid twice a day for the next 7 days. Drink plenty of fluids. Follow-up with primary care provider as needed. Return to the emergency department for any new, concerning, worsening symptoms. Prescriptions: New nitrofurantoin monohyd/m-cryst [Macrobid] 100 mg capsule 100 mg PO Q12H 7 Days Qty: 14 0RF Rx Instructions: must administer with a meal/food No Action ascorbic acid (vitamin C) [Vitamin C] 500 mg tablet 1 tab PO DAILY thyroid (pork) [[facility] Thyroid] 30 mg tablet 1 tab PO BID cyanocobalamin (vitamin B-12) 1,000 mcg/mL Solution 1,000 mcg IM QMONTH thyroid (pork) [[place] Thyroid] 15 mg tablet 15 mg PO BID carisoprodol 350 mg tablet 1 tab PO QID lithium carbonate 300 mg tablet extended release 2 tab PO BEDTIME diazepam 5 mg tablet 1 tab PO BEDTIME duloxetine 30 mg capsule,delayed release(DR/EC) 1 cap PO DAILY cholecalciferol (vitamin D3) 50 mcg (2,000 unit) tablet 1 tab PO DAILY aspirin [Adult Aspirin Regimen] 81 mg tablet,delayed release (DR/EC) 81 mg PO DAILY lithium carbonate 300 mg capsule 600 mg PO DAILY Latuda 20 mg tablet 20 mg PO BEDTIME calcium citrate 1,000 mg tablet 1,000 mg PO DAILY Bariatric Multivitamins 45 mg iron- 800 mcg-120 mcg capsule 1 cap PO DAILY Interventions: ED Discharge Assessment Last Done: 11/19/21 21:45 Discharge Date/Time: 11/19/21 21:46
[2021-11-19 19:26] VITALS: BP 158/99; PULSE 82; RESP 19; TEMP 36.8; O2SAT 98
[2021-11-19 19:33] LABS: Lipase 78 U/L (8-78)
[2021-11-19 20:03] VITALS: BP 172/92; PULSE 78; RESP 18; TEMP 36.9; O2SAT 99
[2021-11-19 20:05] LABS: Appearance Urine Clear; Color Urine Dark Yellow; Glucose Urine UA Negative (Negative); Leukocyte Esterase Urine Small (1+) (Negative); Nitrite Urine Negative (Negative); PH 5.5 (5.0-9.0); Specific Gravity - Urine >= 1.030 (1.005-1.025); UMIC TRIGGER UACC YES; Urine Blood Moderate (2+) (Negative); Urine Ketones 80 mg/dL (Negative); Urine Protein 100 (2+) mg/dL (Neg-Trace)
[2021-11-19 20:13] LABS: Bacteria Urine None Seen (None Seen); Hyaline Casts Urine 0-2 /LPF (0-2); UACC Culture Trigger YES
[2021-11-19] MEDS: diphenhydrAMINE HCL 50 MG/ML VIAL 12.5 MG IVPUSH (20:49)
[2021-11-19] MEDS: LORazepam 1 MG TABLET 2 MG PO (20:49)
[2021-11-19] MEDS: 0.9 % Sodium Chloride 1,000 ML 999 ML IVCONT (20:52)
[2021-11-19] MEDS: Nitrofurantoin Monohyd/M-Cryst 100 MG CAPSULE PO (21:05)
[2021-11-19] MEDS: Acetaminophen 325 MG TABLET 975 MG PO (21:11)
[2021-11-19 21:38] VITALS: BP 150/85; PULSE 88; RESP 16; TEMP 37.1; O2SAT 16
== END 2021-11-19 21:46 | disposition home or self-care (01) ==
PROVIDERS: Student in an Organized Health Care Education/Training Program; Emergency Provider Emergency Medicine
DX: N39.0 Urinary tract infection, site not specified (principal); R10.9 Unspecified abdominal pain; R11.2 Nausea with vomiting, unspecified; Z20.822 Contact with and (suspected) exposure to COVID-19; F43.10 Post-traumatic stress disorder, unspecified; F31.9 Bipolar disorder, unspecified; E78.00 Pure hypercholesterolemia, unspecified; E66.9 Obesity, unspecified; Z68.36 Body mass index [BMI] 36.0-36.9, adult; Z98.84 Bariatric surgery status; Z79.899 Other long term (current) drug therapy
CPT/HCPCS: 74176; 80048; 80076; 81001; 81003; 83690; 85025; 87086; 87635; 96365; 96375; 99284; J1200; J2550

== ENCOUNTER 2022-02-09 10:05 | Outpatient (REF) | payer OTHER, SELFPAY ==
[2022-02-09 13:02] LABS: Lithium 0.56 mmol/L (0.60-1.20)
[2022-02-09 14:07] LABS: T4 Thyroxine 4.4 ug/dL (4.5-12.0); Thyroid Stimulating Hormone 11.06 uIU/mL (0.32-4.0)
[2022-02-11 03:29] LABS: Triiodothyronine T3 Free 2.7 pg/mL (2.3-4.2); Triiodothyronine T3 Total 97 ng/dL (76-181)
== END 2022-02-09 10:06 | disposition home or self-care (01) ==
LOC: HO.LABR 10:05
PROVIDERS: PCP Nurse Practitioner Family; Visit Provider Psychiatry & Neurology Psychiatry
DX: E03.9 Hypothyroidism, unspecified (principal); F31.9 Bipolar disorder, unspecified
CPT/HCPCS: 36415; 80178; 84436; 84443; 84480; 84481

== ENCOUNTER 2022-03-03 13:40 | Outpatient (REF) | payer MEDICAID, SELFPAY ==
--- NOTE | ~2022-03-03 | XR_ITS ---
EXAMINATION: XR ANKLE, LEFT CLINICAL INFORMATION: Pain left ankle and joint. COMPARISON: None TECHNIQUE: AP, lateral, and mortise views of the left ankle. FINDINGS: There is mild lateral malleolar soft tissue swelling. The ankle mortise and subtalar joints are normal. The ankle mortise and subtalar joints are normal. There is a small calcaneal and retrocalcaneal enthesophyte. XR/XR ankle LT 2V IMPRESSION: 1. Mild lateral malleolar soft tissue swelling. No visible acute fracture or dislocation seen. 2. Small calcaneal heel and retrocalcaneal enthesophytes.
== END 2022-03-03 13:41 | disposition home or self-care (01) ==
LOC: HO.XRAY 13:40
PROVIDERS: PCP Internal Medicine; Visit Provider Internal Medicine
DX: M25.572 Pain in left ankle and joints of left foot (principal)
CPT/HCPCS: 73600

== ENCOUNTER 2022-04-13 10:20 | Outpatient (REF) | payer MEDICARE, MEDICAID, SELFPAY ==
[2022-04-13 11:26] LABS: Lithium 0.71 mmol/L (0.60-1.20)
[2022-04-13 11:42] LABS: Alanine Aminotransferase 14 U/L (0-31); Albumin Level 4.2 g/dL (3.5-5.0); Alkaline Phosphatase 157 U/L (39-117); Anion Gap 11 (12-20); Aspartate Amino Transferase 18 U/L (5-31); Bilirubin Total 0.5 mg/dL (0.0-1.0); Blood Urea Nitrogen 13 mg/dL (9-16); Calcium 9.2 mg/dL (8.4-10.2); Carbon Dioxide 27 mmol/L (22-29); Chloride 105 mmol/L (96-108); Estimated Glomerular Filt Rate > 60; Glucose Random 89 mg/dL (60-115); Potassium 4.8 mmol/L (3.3-5.1); Sodium 138 mmol/L (135-145); Total Protein 6.7 g/dL (6.5-8.0)
[2022-04-13 12:05] LABS: Free T4 (Free Thyroxine) 0.82 ng/dL (0.71-1.85); Thyroid Stimulating Hormone 6.76 uIU/mL (0.32-4.0); Vitamin D 25-OH Total 26.5 ng/mL (>30)
[2022-04-14 08:59] LABS: Triiodothyronine T3 Free 2.8 pg/mL (2.3-4.2); Triiodothyronine T3 Total 87 ng/dL (76-181)
[2022-04-14 13:44] LABS: Thyroid Peroxidase Antibodies 236 IU/mL (<9)
[2022-04-18 16:24] LABS: Triiodothyronine T3 Reverse 8 ng/dL (8-25)
== END 2022-04-13 10:21 | disposition home or self-care (01) ==
LOC: HO.LAB 10:20
PROVIDERS: PCP Internal Medicine; Visit Provider Psychiatry & Neurology Psychiatry
DX: E03.9 Hypothyroidism, unspecified (principal); E07.81 Sick-euthyroid syndrome; E55.9 Vitamin D deficiency, unspecified; F31.9 Bipolar disorder, unspecified
CPT/HCPCS: 36415; 80053; 80178; 82306; 84436; 84439; 84443; 84480; 84481; 84482; 86376

== ENCOUNTER 2022-04-30 11:18 | Outpatient (REF) | payer MEDICARE, MEDICAID, SELFPAY ==
--- NOTE | ~2022-04-30 | XR_ITS ---
EXAMINATION: XR CHEST CLINICAL INFORMATION: Confusion in the front wall of the chest. COMPARISON: Chest radiographs dated 05/13/2021. TECHNIQUE: 2 views of the chest were obtained. FINDINGS: Mild linear markings are seen in the lingula. The lungs are otherwise clear. There are no pleural effusions. The heart and mediastinal structures are unremarkable. XR/XR chest 2V IMPRESSION: Mild linear atelectasis versus scarring in the lingula. No acute cardiopulmonary process.
== END 2022-04-30 11:19 | disposition home or self-care (01) ==
LOC: HO.HMGCX 11:18
PROVIDERS: PCP Internal Medicine; Visit Provider Internal Medicine
DX: S20.219A Contusion of unspecified front wall of thorax, initial encounter (principal)
CPT/HCPCS: 71046

== ENCOUNTER 2022-05-04 11:11 | Emergency (ER) | payer OTHER, MEDICARE, MEDICAID, SELFPAY ==
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
[2022-05-04 11:14] VITALS: BP 144/76; PULSE 88; RESP 18; TEMP 36.4; O2SAT 96; BMI 39.9
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
[2022-05-04 13:07] LABS: MANUAL DIFF FLAG NO
[2022-05-04 13:08] LABS: Basophils Percent Auto 0.3 % (0-2); Eosinophils Absolute Auto 0.1 X10*3/uL (0.0-0.4); Eosinophils Percent Auto 0.8 % (0-4); Hematocrit 43.3 % (37.0-47.0); Hemoglobin 13.6 g/dl (12.0-16.0); Imm Gran Abs Auto 0.13 X10*3/uL (0.00-0.03); Imm Gran Pct Auto 0.9 % (0.0-0.4); Lymphocytes Absolute Auto 1.9 X10*3/uL (1.2-4.9); Lymphocytes Percent Auto 12.3 % (20-40); Mean Corpuscular HGB Conc 31.4 g/dl (31.0-35.0); Mean Corpuscular Hemoglobin 29.5 pg (27.0-33.0); Mean Corpuscular Volume 93.9 fL (80.0-98.0); Mean Platelet Volume 9.4 fL (9.4-12.3); Monocytes Absolute Auto 0.4 X10*3/uL (0.1-1.2); Monocytes Percent Auto 2.8 % (2-11); Neutrophils Absolute Auto 12.5 x10*3/uL (2.0-8.3); Neutrophils Percent Auto 82.9 % (45-73); Platelet Count 227 X10*3/uL (160-400); Red Blood Count 4.61 X10*6/uL (4.20-5.50); Red Cell Distribution Width 14.5 % (11.0-16.0); White Blood Count 15.1 X10*3/uL (4.8-10.8)
[2022-05-04 13:16] LABS: INTERNATIONAL NORM RATIO 0.9 (0.9-1.1)
[2022-05-04 13:29] LABS: Alanine Aminotransferase 13 U/L (0-31); Albumin Level 4.1 g/dL (3.5-5.0); Alkaline Phosphatase 112 U/L (39-117); Anion Gap 15 (12-20); Aspartate Amino Transferase 23 U/L (5-31); Bilirubin Total 0.6 mg/dL (0.0-1.0); Blood Urea Nitrogen 22 mg/dL (9-16); Calcium 9.3 mg/dL (8.4-10.2); Carbon Dioxide 26 mmol/L (22-29); Chloride 107 mmol/L (96-108); Creatinine Clr Calc Pharmacy 85.1; Estimated Glomerular Filt Rate 59; Glucose Random 119 mg/dL (60-115); Magnesium 2.3 mg/dL (1.6-2.6); Potassium 5.6 mmol/L (3.3-5.1); Sodium 142 mmol/L (135-145); Total Protein 6.7 g/dL (6.5-8.0)
[2022-05-04 13:36] LABS: Troponin-I High Sensitivity < 3.5 ng/L (<3.5-17.0)
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
[2022-05-04] MEDS: Sodium Zirconium Cyclosilicate 10 GM POWD.PACK PO (14:52)
[2022-05-04 15:34] LABS: Appearance Urine Clear; Color Urine Yellow; Glucose Urine UA Negative (Negative); Leukocyte Esterase Urine Negative (Negative); Nitrite Urine Negative (Negative); PH 6.5 (5.0-9.0); Urine Blood Negative (Negative); Urine Ketones Negative (Negative); Urine Protein Negative (Neg-Trace)
[2022-05-04 15:57] LABS: Anion Gap 14 (12-20); Blood Urea Nitrogen 21 mg/dL (9-16); Calcium 9.4 mg/dL (8.4-10.2); Carbon Dioxide 28 mmol/L (22-29); Chloride 105 mmol/L (96-108); Creatinine Clr Calc Pharmacy 86.9; Estimated Glomerular Filt Rate > 60; Glucose Random 140 mg/dL (60-115); Potassium 5.5 mmol/L (3.3-5.1); Sodium 141 mmol/L (135-145)
[2022-05-04] MEDS: Sodium Polystyrene Sulfon/Sorb 15 GM/60 ML ORAL.SUSP 30 GM PO (16:19)
== END 2022-05-04 16:24 | disposition home or self-care (01) ==
PROVIDERS: Physician Assistant Medical; Emergency Provider Emergency Medicine; PCP Internal Medicine
DX: R06.02 Shortness of breath (principal); S29.011D Strain of muscle and tendon of front wall of thorax, subsequent encounter; V43.52XD Car driver injured in collision with other type car in traffic accident, subsequent encounter; E87.5 Hyperkalemia; M19.012 Primary osteoarthritis, left shoulder
CPT/HCPCS: 36415; 71101; 73030; 80048; 80053; 81003; 83735; 84484; 85025; 85610; 93005; 99283

== ENCOUNTER 2022-05-24 15:13 | Outpatient (REF) | payer MEDICARE, MEDICAID, SELFPAY ==
[2022-05-24 15:36] LABS: MANUAL DIFF FLAG NO
[2022-05-24 15:48] LABS: Basophils Percent Auto 0.4 % (0-2); Eosinophils Absolute Auto 0.2 X10*3/uL (0.0-0.4); Eosinophils Percent Auto 2.3 % (0-4); Hematocrit 42.5 % (37.0-47.0); Hemoglobin 13.5 g/dl (12.0-16.0); Imm Gran Abs Auto 0.03 X10*3/uL (0.00-0.03); Imm Gran Pct Auto 0.4 % (0.0-0.4); Lymphocytes Absolute Auto 2.4 X10*3/uL (1.2-4.9); Lymphocytes Percent Auto 29.7 % (20-40); Mean Corpuscular HGB Conc 31.8 g/dl (31.0-35.0); Mean Corpuscular Hemoglobin 29.5 pg (27.0-33.0); Monocytes Absolute Auto 0.4 X10*3/uL (0.1-1.2); Monocytes Percent Auto 5.1 % (2-11); Neutrophils Percent Auto 62.1 % (45-73); Platelet Count 250 X10*3/uL (160-400); Red Blood Count 4.57 X10*6/uL (4.20-5.50); Red Cell Distribution Width 13.8 % (11.0-16.0); White Blood Count 8.1 X10*3/uL (4.8-10.8)
[2022-05-24 16:20] LABS: Alanine Aminotransferase 8 U/L (0-31); Albumin Level 4.1 g/dL (3.5-5.0); Alkaline Phosphatase 107 U/L (39-117); Anion Gap 12 (12-20); Aspartate Amino Transferase 13 U/L (5-31); Bilirubin Total 0.3 mg/dL (0.0-1.0); Blood Urea Nitrogen 14 mg/dL (9-16); Calcium 9.1 mg/dL (8.4-10.2); Carbon Dioxide 25 mmol/L (22-29); Chloride 105 mmol/L (96-108); Estimated Glomerular Filt Rate > 60; Glucose Random 113 mg/dL (60-115); Potassium 4.5 mmol/L (3.3-5.1); Sodium 137 mmol/L (135-145); Total Protein 6.6 g/dL (6.5-8.0)
[2022-05-24 16:38] LABS: Free T4 (Free Thyroxine) 0.82 ng/dL (0.71-1.85); Thyroid Stimulating Hormone 2.27 uIU/mL (0.32-4.0)
== END 2022-05-24 15:14 | disposition home or self-care (01) ==
LOC: HO.LAB 15:13
PROVIDERS: Absent Provider Internal Medicine; PCP Internal Medicine; Visit Provider Internal Medicine
DX: E03.9 Hypothyroidism, unspecified (principal); E78.5 Hyperlipidemia, unspecified
CPT/HCPCS: 36415; 80053; 84439; 84443; 85025

== ENCOUNTER 2022-05-27 10:17 | Day surgery (SDC) | payer MEDICARE, MEDICAID, SELFPAY ==
[2022-05-24 11:08] VITALS: BMI 36.9
[2022-05-27 10:36] VITALS: BP 138/84; PULSE 64; RESP 18; TEMP 36.8; O2SAT 98; BMI 41.3
[2022-05-27 10:41] VITALS: BMI 41.3
--- NOTE | 2022-05-27 10:52 | P.OP_ITS ---
Operative Note Operative Note Date of Service: 05/27/22 Narrative: Procedure: Colonoscopy Indication: Personal history of polyps Endoscopist: Becca Schaefer MD Anesthesia Provider: Dr Sana Díaz Anesthesia type: MAC Instrument: Olympus [id number] Consent: Indication, risks vs benefits, and alternatives were discussed with the patient who gave written informed consent to proceed. EKG, pulse, pulse oximetry and blood pressure were monitored throughout the procedure. Please see anesthesia flowsheet. Procedure: The patient was brought to the procedure room and placed in the left lateral decubitus position. IV medications were administered by the anesthesia provider in attendance. A digital rectal exam was performed which was normal. A distal attachment cap was affixed to the tip of the scope and the colonoscope was then inserted through the anus and advanced through the colon to the cecum at 75 cm,and terminal ileum. Mucosa was carefully examined under high definition white light as the instrument was slowly withdrawn in a retrograde panoramic fashion. Retroflexion was performed in rectum. The procedure was not difficult. There were no immediate obvious complications. The quality of the prep was BBPS: 2+2+2 = adequate Withdrawal time 12 minutes. Limitations: No limitations. Findings: Mucosa: Normal to cecum and terminal ileum. Protruding lesions: * Medium internal hemorrhoids [without] stigmata of recent bleeding. Impression: 1. Normal colon and terminal ileum mucosa 2. Internal hemorrhoids Recommendations: - Repeat colonoscopy in 3-5 years due to x7 adenomas in 2021.
--- NOTE | 2022-05-27 10:52 | MHC.SHP ---
Pre-Procedural Eval Section A Date of Service: 05/27/22 Section B Chief Complaint: Personal hx of polyps Details of Present Illness: PMH: ADHD Anemia Anxiety and depression Back pain Bipolar disorder DDD (degenerative disc disease) GERD (gastroesophageal reflux disease) Hx of small bowel obstruction Hypercholesterolemia Iron deficiency anemia Lumbar disc herniation Obesity Osteoarthritis PTSD (post-traumatic stress disorder) Right rotator cuff tear Surgical History: History of adjustable gastric banding History of esophagogastroduodenoscopy (EGD) History of removal of laparoscopic gastric banding device History of Theo-en-Y gastric bypass Hx laparoscopic cholecystectomy Hx of section Hx of colonoscopy Hx of laminectomy Hx of laparoscopic gastric banding Hx of tonsillectomy S/P panniculectomy Present Medications: see Short Stay Collaborative assessment Allergies: Allergies Allergy/AdvReac Type Severity Reaction Status Date / Time amoxicillin [Amoxicillin] Allergy Severe HIVES, Verified 05/07/22 20:19 swelling Review of Systems Review of Systems Comment: Ten point ROS negative Exam Exam Comment: Gen appear: No acute distress HEENT: no icterus Chest: No overt resp distress Abd: soft, nontender, nondistended Psych: Stable affect, answering questions appropriately Neuro: A/Ox3 noted to move all extremities spontaneously Ext: no peripheral edema Plan Diagnosis/Plan: Unchanged I have reviewed the history and physical and performed a pertinent physical examination on my patient. No changes have occurred unless specified. Time Spent With Patient Time: Total time managing care of this patient today ____ minutes.
[2022-05-27] MEDS: Lactated Ringers 1,000 ML 50 ML IVCONT (11:05)
[2022-05-27 12:44] VITALS: BP 143/83; PULSE 80; RESP 16; TEMP 36.6; O2SAT 99
[2022-05-27 12:59] VITALS: BP 152/79; PULSE 83; RESP 16; TEMP 36.8; O2SAT 100
--- NOTE | 2022-05-27 13:22 | HO.POSTANES ---
Post Anesthesia Evaluation Post Anesthesia Evaluation Vital Signs: Vital Signs Temp Pulse Resp BP Pulse Ox O2 Del Method 05/27/22 12:59 98.3 F 83 16 152/79 H 100 Room Air 05/27/22 12:44 97.9 F 80 16 143/83 H 99 Room Air 05/27/22 10:36 98.3 F 64 18 138/84 98 Room Air Anesthesia: Monitored Mental Status: Awake Pain Control: Satisfactory Nausea/Vomiting: None Hydration: Adequate Anesthesia-Related Issues: No Anes. Related Issues
== END 2022-05-27 13:51 | disposition home or self-care (01) ==
PROVIDERS: PCP Internal Medicine; Visit Provider Internal Medicine
PROC: 0DJD8ZZ Inspection of Lower Intestinal Tract, Via Natural or Artificial Opening Endoscopic (ICD-10-PCS; CPT 45378; principal; 2022-05-27 12:40)
DX: Z12.11 Encounter for screening for malignant neoplasm of colon (principal); K64.8 Other hemorrhoids; Z86.010 Personal history of colon polyps; Z87.19 Personal history of other diseases of the digestive system; Z98.84 Bariatric surgery status
CPT/HCPCS: G0105

== ENCOUNTER → 2022-05-28 11:36 | Outpatient (BNVA) | payer MEDICARE, MEDICAID, SELFPAY | PROVIDERS: PCP Internal Medicine; Visit Provider Student in an Organized Health Care Education/Training Program | DX: M79.7 Fibromyalgia (principal) | CPT/HCPCS: 99202 ==

== ENCOUNTER 2022-08-06 09:37 | Outpatient (REF) | payer MEDICARE, MEDICAID, SELFPAY ==
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
== END 2022-08-06 09:38 | disposition home or self-care (01) ==
LOC: HO.HMGCX 09:37
PROVIDERS: PCP Internal Medicine; Visit Provider Internal Medicine
DX: S60.221A Contusion of right hand, initial encounter (principal)
CPT/HCPCS: 73130

== ENCOUNTER 2022-08-13 15:33 | Outpatient (REF) | payer MEDICARE, MEDICAID, SELFPAY ==
--- NOTE | ~2022-08-13 | XR_ITS ---
EXAMINATION: XR FOOT, RIGHT CLINICAL INFORMATION: Pain COMPARISON: Previous x-ray from 2015 TECHNIQUE: AP, lateral, and oblique views of the right foot. FINDINGS: Bone alignment is normal. No fracture or dislocation. Mild arthritis at the first MTP joint and midfoot at the talar navicular joint with small osteophytes. Joint spaces are otherwise normal. Calcaneal spurs. XR/XR foot RT 2V IMPRESSION: Mild degenerative changes similar to 2015. Calcaneal spurs.
== END 2022-08-13 15:34 | disposition home or self-care (01) ==
LOC: HO.XRAY 15:33
PROVIDERS: PCP Internal Medicine; Visit Provider Internal Medicine
DX: M79.671 Pain in right foot (principal)
CPT/HCPCS: 73620

== ENCOUNTER 2022-09-24 11:12 | Outpatient (AMB) | payer MEDICARE, MEDICAID, SELFPAY ==
[2022-09-24 11:17] VITALS: BP 132/68; PULSE 88; O2SAT 99; BMI 41.5
--- NOTE | 2022-09-24 11:17 | A.OFFPC_ITS ---
Vital Signs 09/24/22 11:17 Height 5 ft 9 in Weight 281 lb BMI 41.5 BP 132/68 Blood Pressure Location Lt brachial Position Sitting Pulse 88 Pulse Source Pulse Oximeter Temp Source Skin Pulse Oximetry (%) 99 Oxygen Delivery Method Room Air Intake Visit Reasons: bilateral feet edema Intake Note: pt state on and off bilateral feet,leg and ankle swelling Medical Oncology Physician Required: No Allergies amoxicillin [Amoxicillin] Allergy (Severe, Verified 09/24/22 11:21) HIVES, swelling Tobacco use date assessed: 09/24/22 Dental Screening Dental Screen Date: 09/24/22 HPI HPI Comments History of Present Illness Details 61-year-old morbidly obese female gaining 50 lb in the last year having a history of hypercholesterolemia GERD history of gastric bypass [address] Santiago last seen in February patient presents today for same- day visit for on and off bilateral feet, ankle or a few years. PAtient states for the past few years states she feels like when its hot and humid the swell up 3+ edema and reports none of her shoes fit. Denies calf pain cramping, leg swelling,no erythema/warmth. Patient states a little difficulty breathing going up her stairs but states not sob or winded. Patient states has been on Lasix in the past for her feet and ankle swelling with some improvement. Patient not currently taking any medications that could be contributing to her edema. Will draw CMP and BNP to evaluate fluid overload. Last echocardiogram completed in 2020 unremarkable. Findings Left Ventricle Normal left ventricular cavity size.? There is normal left ventricular wall thickness.? The left ventricular systolic function is normal.? The visually estimated ejection fraction is between 60-65%.? There is no evidence of regional wall motion abnormalities.? Diastolic function is normal for age. PFSH Medical History Abdominal muscle strain ADHD Adult general medical exam Anemia Anxiety and depression Back pain Bipolar disorder Chronic diarrhea DDD (degenerative disc disease) Depression Dizziness GERD (gastroesophageal reflux disease) Hx of small bowel obstruction Hypercholesterolemia Iron deficiency anemia Left hip pain Left lateral abdominal pain Left shoulder pain LLQ abdominal pain Lumbar disc herniation Marginal ulcer Morbid obesity Obesity Osteoarthritis Osteomyelitis Polyarthralgia Post-menopausal PTSD (post-traumatic stress disorder) Right rotator cuff tear Screening for breast cancer Screening for colon cancer Screening for diabetes mellitus Slurred speech SOB (shortness of breath) Upper back pain on left side Urinary incontinence Weight gain Surgical History History of adjustable gastric banding History of esophagogastroduodenoscopy (EGD) History of removal of laparoscopic gastric banding device History of Theo-en-Y gastric bypass Hx laparoscopic cholecystectomy Hx of section Hx of colonoscopy Hx of laminectomy Hx of laparoscopic gastric banding Hx of tonsillectomy S/P panniculectomy Family History Father HTN (hypertension) DM (diabetes mellitus) Bladder cancer Prostate cancer Hyperlipidemia Mother Thyroid nodule Brother No problems noted. Sister No problems noted. Son No problems noted. Daughter No problems noted. Social History Household Members: Spouse, Children and Other Household Members Other:: dog and cat Housing: House Do you presently have visiting nurse or other home services: No Alcohol intake: never Patient Tobacco Use Status: Never used Tobacco e-Cigarette/Vaping Use: Never Used Second Hand Smoke Exposure: No Substance Use Type: Opiates Advance Directives Date on File: 02/10/21 service: No Current occupational status: disabled Sexual orientation: Straight/Heterosexual Cognitive needs: No Hearing needs: No Vision needs: Yes Questionnaire Thrive Questionnaire Date Thrive assessed: 03/03/22 AUDIT C Alcohol Use Questionnaire (AUDIT-C) 1. How often do you have a drink containing alcohol?: Never Total Score: 0 GILDA-7 AMB Questionnaire GILDA-7 Date GILDA - 7 assessed: 02/25/22 Source: Developed by Drs. Nav Faust, July Contreras, Horacio Rudolph and colleagues, with an educational mustapha from [employer]. Review of Systems Const Denies chills, Denies fatigue, Denies fever(s) and Denies poor appetite Eyes Denies no additional complaints ENT Reports Normal hearing present Card Denies chest pain, Denies syncope, Denies rapid heart rate, Denies dyspnea and Reports other (ankle and feet swelling ) Resp Denies cough and Denies dyspnea GI Denies change in stool character, Denies constipation, Denies diarrhea, Denies nausea and Denies vomiting Denies urinary frequency, Denies dysuria and Denies urinary urgency Neuro Reports Normal hearing present, Denies confusion and Denies syncope Psych Denies confusion Endo Denies fatigue Physical exam (Primary Care) Vital Signs: Last Vital Signs Pulse 88 09/24/22 11:17 BP 132/68 09/24/22 11:17 Pulse Ox 99 09/24/22 11:17 Oxygen Delivery Method Room Air 09/24/22 11:17 BMI result Body Mass Index 41.5 Tobacco/Smoking Status: Tobacco use Status Tobacco use date assessed 09/24/22 09/24/22 11:18 Patient Tobacco Use Status Never used Tobacco 09/24/22 11:18 e-Cigarette/Vaping Use Never Used 09/24/22 11:18 Thrive Assessment: Date of Thrive Assessment Date Thrive assessed 03/03/22 09/24/22 11:18 Const General: No confusion Orientation/consciousness: No confusion HENMT Head: Yes normocephalic and Yes atraumatic Eyes Conjunctivae: conjunctivae normal Chest Chest palpation & inspection: normal inspection of the chest Resp Effort & Inspection: normal respiratory effort Auscultation: clear to auscultation bilaterally, no crackles, no rhonchi and no wheezes Cardio Rate: regular rate Rhythm: regular rhythm Heart sounds: S1 normal heart sound present and S2 normal heart sound present Peripheral pulses: dorsalis pedis present GI Inspection: Yes normal to inspection Neuro General: No confusion Cranial nerves: Yes Normal hearing present Extrem General: Yes pedal edema (ankle edema, nonpitting. ) Assessment and Plan Assessment & Plan (1) Bilateral swelling of feet: Code(s): M79.89 - Other specified soft tissue disorders Plan: BMP ordered to evaluate for fluid overload, if elevated will consider giving patient short course Lasix and further evaluation with updated echocardiogram. Patient agreeable to plan of care. Plan Keep scheduled appointment with pcp in 1 month or follow up sooner if needed. Orders: Orders B Type Natriuretic Peptide Today M79.89 - Other specified soft tissue disorders Comprehensive Met. Panel Today M79.89 - Other specified soft tissue disorders Medications: Discontinued pantoprazole TAKE 1 TABLET BY MOUTH EVERY DAY 60 tabs 0RF Coding Level of Care Code Est Pt Level 3 (28210) Diagnoses Bilateral swelling of feet M79.89
== END 2022-09-24 11:49 | disposition home or self-care (01) ==
PROVIDERS: PCP Internal Medicine; Visit Provider Nurse Practitioner Family
DX: M79.89 Other specified soft tissue disorders (principal)
CPT/HCPCS: 99213

== ENCOUNTER 2022-09-24 12:31 | Outpatient (REF) | payer MEDICARE, MEDICAID, SELFPAY ==
[2022-09-24 14:35] LABS: B Type Natriuretic Peptide 35 pg/mL (<100)
[2022-09-24 14:53] LABS: Alanine Aminotransferase 10 U/L (0-31); Albumin Level 4.1 g/dL (3.5-5.0); Alkaline Phosphatase 101 U/L (39-117); Anion Gap 18 (12-20); Aspartate Amino Transferase 13 U/L (5-31); Bilirubin Total 0.4 mg/dL (0.0-1.0); Blood Urea Nitrogen 13 mg/dL (9-16); Calcium 9.2 mg/dL (8.4-10.2); Carbon Dioxide 20 mmol/L (22-29); Chloride 105 mmol/L (96-108); Estimated Glomerular Filt Rate > 60; Glucose Random 105 mg/dL (60-115); Potassium 4.6 mmol/L (3.3-5.1); Sodium 138 mmol/L (135-145)
== END 2022-09-24 12:32 | disposition home or self-care (01) ==
LOC: HO.LAB 12:31
PROVIDERS: PCP Internal Medicine; Visit Provider Nurse Practitioner Family
DX: M79.89 Other specified soft tissue disorders (principal)
CPT/HCPCS: 36415; 80053; 83880

== ENCOUNTER 2022-10-15 11:28 | Outpatient (AMB) | payer MEDICARE, MEDICAID, SELFPAY ==
--- NOTE | 2022-10-15 11:35 | MHC.PC.OV ---
Vital Signs 10/15/22 11:37 Height 5 ft 9 in Weight 277 lb BMI 40.9 BP 128/78 Blood Pressure Location Lt brachial Position Sitting Pulse 74 Pulse Source Pulse Oximeter Pulse Oximetry (%) 98 Oxygen Delivery Method Room Air Intake Visit Reasons: lump/bump abdomen area Allergies amoxicillin [Amoxicillin] Allergy (Severe, Verified 10/15/22 11:38) HIVES, swelling Tobacco use date assessed: 09/24/22 Dental Screening Dental Screen Date: 10/15/22 Did you have a dental visit in the last 12 months?: Yes Did you have a dental problem in the last 6 months where you did not have access to dental care?: No Was dental information given to patient?: Patient has dentist HPI HPI Comments History of Present Illness Details 61-year-old morbidly obese female gaining 50 lb in the last year having a history of hypercholesterolemia GERD history of gastric bypass 2003 [address] Patient Dr. Santiago last seen on beginning of the month. Patient presents today for same-day visit for LMQ pain constant throbbing pain 08/30. Patient reports tender at scar from gastric bypass. No nausea,vomiting, no diarrhea. Appetite good. Patient reports feels like something is there. Recent EGD and colonoscopy unremarkable. Patient requesting abdominal CT scan for further evaluation. [facility], [facility] Medical History Abdominal muscle strain ADHD Adult general medical exam Anemia Anxiety and depression Back pain Bipolar disorder Chronic diarrhea DDD (degenerative disc disease) Depression Dizziness GERD (gastroesophageal reflux disease) Hx of small bowel obstruction Hypercholesterolemia Iron deficiency anemia Left hip pain Left lateral abdominal pain Left shoulder pain LLQ abdominal pain Lumbar disc herniation Marginal ulcer Morbid obesity Obesity Osteoarthritis Osteomyelitis Polyarthralgia Post-menopausal PTSD (post-traumatic stress disorder) Right rotator cuff tear Screening for breast cancer Screening for colon cancer Screening for diabetes mellitus Slurred speech SOB (shortness of breath) Upper back pain on left side Urinary incontinence Weight gain Surgical History History of adjustable gastric banding History of esophagogastroduodenoscopy (EGD) History of removal of laparoscopic gastric banding device History of Theo-en-Y gastric bypass Hx laparoscopic cholecystectomy Hx of section Hx of colonoscopy Hx of laminectomy Hx of laparoscopic gastric banding Hx of tonsillectomy S/P panniculectomy Family History Father HTN (hypertension) DM (diabetes mellitus) Bladder cancer Prostate cancer Hyperlipidemia Mother Thyroid nodule Brother No problems noted. Sister No problems noted. Son No problems noted. Daughter No problems noted. Social History Household Members: Spouse, Children and Other Household Members Other:: dog and cat Housing: House Do you presently have visiting nurse or other home services: No Alcohol intake: never Patient Tobacco Use Status: Never used Tobacco e-Cigarette/Vaping Use: Never Used Second Hand Smoke Exposure: No Substance Use Type: Opiates Advance Directives Date on File: 02/10/21 service: No Current occupational status: disabled Sexual orientation: Straight/Heterosexual Cognitive needs: No Hearing needs: No Vision needs: Yes Questionnaire PHQ-9 Over the last 2 weeks, how often have you been bothered by any of the following problems? 1. Little interest or pleasure in doing things: several days 2. Feeling down, depressed, or hopeless: several days 3. Trouble falling or staying asleep, or sleeping too much: several days 4. Feeling tired or having little energy: several days 5. Poor appetite or overeating: several days 6. Feeling bad about yourself - or that you are a failure or have let yourself or your family down: not at all 7. Trouble concentrating on things, such as reading the newspaper or watching television: not at all 8. Moving or speaking so slowly that other people could have noticed. Or the opposite - being so fidgety or restless that you have been moving around a lot more than usual: not at all 9. Thoughts that you would be better off or of hurting yourself in some way: not at all Total score: 5 Depression Screening Interpretation: Positive Depression Screening Follow-up: Existing condition, In treatment and Community Mental Health Worker F/U 73213 - PHQ-9 Billing: Yes Source: Developed by Drs. Nav Faust, July Contreras, Horacio Rudolph and colleagues, with an educational mustapha from [employer]. Thrive Questionnaire Date Thrive assessed: 03/03/22 AUDIT C Alcohol Use Questionnaire (AUDIT-C) 1. How often do you have a drink containing alcohol?: Never Total Score: 0 GILDA-7 AMB Questionnaire GILDA-7 Date GILDA - 7 assessed: 02/25/22 Source: Developed by Drs. Nav Faust, July Contreras, Horacio Rudolph and colleagues, with an educational mustapha from [employer]. Review of Systems Const Denies chills, Denies fatigue, Denies fever(s) and Denies poor appetite Eyes Denies no additional complaints ENT Reports Normal hearing present Card Denies chest pain, Denies syncope, Denies rapid heart rate and Denies dyspnea Resp Denies cough and Denies dyspnea GI Reports abdominal pain (LMQ), Denies change in stool character, Denies constipation, Denies diarrhea, Denies nausea and Denies vomiting Denies urinary frequency, Denies dysuria and Denies urinary urgency Neuro Reports Normal hearing present, Denies confusion and Denies syncope Psych Denies confusion Endo Denies fatigue Physical exam (Primary Care) Vital Signs: Last Vital Signs Pulse 74 10/15/22 11:37 BP 128/78 10/15/22 11:37 Pulse Ox 98 10/15/22 11:37 Oxygen Delivery Method Room Air 10/15/22 11:37 BMI result Body Mass Index 40.9 Tobacco/Smoking Status: Tobacco use Status Tobacco use date assessed 09/24/22 10/15/22 11:36 Patient Tobacco Use Status Never used Tobacco 10/15/22 11:36 e-Cigarette/Vaping Use Never Used 10/15/22 11:36 PHQ-9: PHQ-9 Score PHQ-9: Total score 5 10/15/22 12:28 Depression Screening Interpretation: Positive Depression Screening Follow-up: Existing condition, In treatment and Community Mental Health Worker F/U Thrive Assessment: Date of Thrive Assessment Date Thrive assessed 03/03/22 10/15/22 11:36 Const General: cooperative and no acute distress; No confusion Orientation/consciousness: patient oriented x3 and No confusion HENMT Head: Yes normocephalic and Yes atraumatic Eyes Conjunctivae: conjunctivae normal Chest Chest palpation & inspection: normal inspection of the chest Resp Effort & Inspection: normal respiratory effort Auscultation: clear to auscultation bilaterally, no crackles, no rhonchi and no wheezes Cardio Rate: regular rate Rhythm: regular rhythm Heart sounds: S1 normal heart sound present and S2 normal heart sound present Peripheral pulses: dorsalis pedis present GI Inspection: Yes normal to inspection Palpation (GI): Soft to palpation, Tenderness to palpation present (GI) in the LUQ; not in the epigastrum and not in the RLQ, no guarding, not rigid and No hepatosplenomegaly present Auscultation: normoactive bowel sounds Neuro General: patient oriented x3 and No confusion Cranial nerves: Yes Normal hearing present Extrem General: No edema Assessment and Plan Assessment & Plan (1) Abdominal pain: Code(s): R10.9 - Unspecified abdominal pain Plan: Amylase and lipase ordered in addition to routine fasting blood work. Abdominal CT with contrast ordered to further evaluate. Plan Keep scheduled physical exam with PCP or follow-up sooner if needed. Orders: Orders Amylase Today R10.9 - Unspecified abdominal pain Comprehensive [place]. Panel Fast Today R10.9 - Unspecified abdominal pain Lipase Today R10.9 - Unspecified abdominal pain Lipid Panel Today Z13.220 - Encounter for screening for lipoid disorders TSH reflex Free T4 Today Z13.29 - Encounter for screening for other suspected endocrine disorder Complete Blood Count Auto Diff Today Z13.0 - Encounter for screening for diseases of the blood and blood-forming organs and certain disorders involving the immune mechanism CT abdomen pelvis w IV con Today R10.9 - Unspecified abdominal pain Medications: Discontinued pantoprazole TAKE 1 TABLET BY MOUTH EVERY DAY 60 tabs 0RF Coding Level of Care Code Est Pt Level 3 (50804) Diagnoses Abdominal pain R10.9
[2022-10-15 11:37] VITALS: BP 128/78; PULSE 74; O2SAT 98; BMI 40.9
== END 2022-10-15 12:05 | disposition home or self-care (01) ==
PROVIDERS: PCP Internal Medicine; Visit Provider Nurse Practitioner Family
DX: R10.9 Unspecified abdominal pain (principal)
CPT/HCPCS: 99213

== ENCOUNTER 2022-10-18 08:19 | Outpatient (REF) | payer MEDICARE, MEDICAID, SELFPAY ==
[2022-10-18 08:32] LABS: MANUAL DIFF FLAG NO
[2022-10-18 08:56] LABS: Basophils Percent Auto 0.5 % (0-2); Eosinophils Absolute Auto 0.3 X10*3/uL (0.0-0.4); Eosinophils Percent Auto 4.4 % (0-4); Hematocrit 43.8 % (37.0-47.0); Hemoglobin 13.9 g/dl (12.0-16.0); Imm Gran Abs Auto 0.03 X10*3/uL (0.00-0.03); Imm Gran Pct Auto 0.4 % (0.0-0.4); Lymphocytes Absolute Auto 2.1 X10*3/uL (1.2-4.9); Lymphocytes Percent Auto 27.6 % (20-40); Mean Corpuscular HGB Conc 31.7 g/dl (31.0-35.0); Mean Corpuscular Hemoglobin 29.5 pg (27.0-33.0); Mean Platelet Volume 10.3 fL (9.4-12.3); Monocytes Absolute Auto 0.4 X10*3/uL (0.1-1.2); Monocytes Percent Auto 5.8 % (2-11); Neutrophils Absolute Auto 4.6 x10*3/uL (2.0-8.3); Neutrophils Percent Auto 61.3 % (45-73); Platelet Count 262 X10*3/uL (160-400); Red Blood Count 4.71 X10*6/uL (4.20-5.50); Red Cell Distribution Width 14.5 % (11.0-16.0); White Blood Count 7.4 X10*3/uL (4.8-10.8)
[2022-10-18 09:36] LABS: Alanine Aminotransferase 9 U/L (0-31); Albumin Level 4.2 g/dL (3.5-5.0); Alkaline Phosphatase 103 U/L (39-117); Amylase 70 U/L (28-100); Anion Gap 11 (12-20); Aspartate Amino Transferase 14 U/L (5-31); Bilirubin Total 0.4 mg/dL (0.0-1.0); Blood Urea Nitrogen 10 mg/dL (9-16); Calcium 9.3 mg/dL (8.4-10.2); Carbon Dioxide 25 mmol/L (22-29); Chloride 110 mmol/L (96-108); Cholesterol 235 mg/dL (<200); Estimated Glomerular Filt Rate > 60; Glucose Fasting 116 mg/dL (60-99); HDL Cholesterol 55 mg/dL (>40); LDL Cholesterol Calculated 147 mg/dL (<100); Lipase 34 U/L (8-78); Potassium 4.9 mmol/L (3.3-5.1); Sodium 141 mmol/L (135-145); Total Protein 7.1 g/dL (6.5-8.0); Triglycerides 165 mg/dL (<150)
[2022-10-18 09:52] LABS: TSH reflex Free T4 2.27 uIU/mL (0.32-4.0)
== END 2022-10-18 08:20 | disposition home or self-care (01) ==
LOC: HO.LAB 08:19
PROVIDERS: PCP Internal Medicine; Visit Provider Nurse Practitioner Family
DX: R10.9 Unspecified abdominal pain (principal); Z13.220 Encounter for screening for lipoid disorders; Z13.29 Encounter for screening for other suspected endocrine disorder; Z13.0 Encounter for screening for diseases of the blood and blood-forming organs and certain disorders involving the immune mechanism; E78.00 Pure hypercholesterolemia, unspecified; E03.9 Hypothyroidism, unspecified
CPT/HCPCS: 36415; 80053; 80061; 82150; 83690; 84443; 85025

== ENCOUNTER 2022-11-04 13:46 | Outpatient (REF) | payer MEDICARE, MEDICAID, SELFPAY ==
[2022-11-04 15:08] LABS: Lithium 1.02 mmol/L (0.60-1.20)
== END 2022-11-04 13:47 | disposition home or self-care (01) ==
LOC: HO.LABR 13:46
PROVIDERS: PCP Internal Medicine; Visit Provider Psychiatry & Neurology Psychiatry
DX: F31.9 Bipolar disorder, unspecified (principal); Z79.899 Other long term (current) drug therapy
CPT/HCPCS: 36415; 80178

== ENCOUNTER 2022-11-16 09:08 | Outpatient (REF) | payer MEDICARE, MEDICAID, SELFPAY ==
--- NOTE | ~2022-11-16 | CT_ITS ---
EXAMINATION: CT ABDOMEN AND PELVIS WITH CONTRAST CLINICAL INFORMATION: Abdominal pain. COMPARISON: CT abdomen and pelvis 11/19/2021. TECHNIQUE: Multidetector volumetric images were obtained from the superior aspect of the liver through the pubic symphysis following administration 85 mL of Omnipaque 350 intravenous contrast. Sagittal and coronal reformatted images were obtained on the technologist's workstation. Oral contrast: No This CT examination was performed using dose optimization techniques as appropriate, variously including the following: *Automated exposure control *Adjustment of mA and/or kV according to patient size (this includes techniques or standardized protocols for targeted exams where dose is matched to indication/reason for exam; i.e. extremities or head) *Use of iterative reconstruction technique DLP: 761 mGy-cm FINDINGS: LUNG BASES: No suspicious lung nodules. LIVER, GALLBLADDER, AND BILIARY TREE: The liver is normal in size, shape, and attenuation. No focal hepatic lesion or intrahepatic biliary ductal dilatation is present. Cholecystectomy. PANCREAS: No discrete pancreatic mass or pancreatic ductal dilatation. Mild prominence of the common bile duct consistent with compensation for cholecystectomy. SPLEEN: Unremarkable. ADRENAL GLANDS: No adrenal mass. KIDNEYS AND URETERS: The kidneys are normal in size, shape, and attenuation. No hydronephrosis, hydroureter, or calculi seen. No perinephric stranding. BLADDER: Unremarkable. GASTROINTESTINAL TRACT: Theo-en-Y gastric bypass. The small bowel is normal in caliber. No mesenteric mass or fluid. The ascending colon appears mildly thickened and inflamed which is a new finding compared to prior. This is consistent with colitis. No abscess. ABDOMINAL WALL: No significant hernia is appreciated. LYMPH NODES: No lymphadenopathy. VASCULAR: No aortic aneurysm. PELVIC VISCERA: Unremarkable. OSSEOUS STRUCTURES: Moderate degenerative changes in the spine. CT/CT abdomen pelvis w IV con IMPRESSION: Mildly thickened and inflamed ascending colon consistent with focal colitis. Recommend clinical correlation. Colonoscopy is recommended to exclude an underlying lesion. Fleischner guidelines were followed.
[2022-11-16] MEDS: iohexoL 350 MG/ML 100 ML INFUS..BTL 85 ML IV (11:16)
[2022-11-16] MEDS: Barium Sulfate Oral (Berry) 450 ML ORAL.SUSP 900 ML PO (11:17)
== END 2022-11-16 09:09 | disposition home or self-care (01) ==
LOC: HO.CT 09:08
PROVIDERS: PCP Internal Medicine; Visit Provider Nurse Practitioner Family
DX: R10.9 Unspecified abdominal pain (principal)
CPT/HCPCS: 74177; Q9967

== ENCOUNTER 2022-11-23 10:27 | Outpatient (AMB) | payer OTHER, MEDICAID, SELFPAY ==
[2022-11-23 10:36] VITALS: BMI 40.9
--- NOTE | 2022-11-23 10:36 | MHC.OFFVIS ---
Intake Vital Signs 11/23/22 10:36 Height 5 ft 9 in Weight 277 lb BMI 40.9 Intake Visit Reasons: [employer] ref for Simon LE swelling Intake Note: [employer]/ referral for LE bilateral swelling worse with warmer weather. Has difficulty finding shoes that fit due to swelling. Swelling is more in her feet and ankles. Has had swelling in her ankles and feet for 3 years. States she has pain on the top of her right foot Accompanied by: Self / Same As Patient Allergies amoxicillin [Amoxicillin] Allergy (Severe, Verified 11/24/22 11:12) HIVES, swelling HPI [employer] ref for Simon LE swelling HPI Details Very pleasant 62-year-old female presents for evaluation regarding bilateral lower extremity edema. Of note she has seen her primary care doctor and actually had a trial of Lasix with very minimal relief. In addition she does have a prior history of an echocardiogram which appears to be within normal limits. She does have a prior history a gastric bypass which was subsequently revised. She reports only a 24 lb weight loss since the most recent surgery. She now presents for evaluation regarding her swelling. Of note she has had no prior venous procedures. No prior history of DVT as well. [facility] Medical History Morbid obesity Polyarthralgia LLQ abdominal pain Chronic diarrhea Adult general medical exam Screening for diabetes mellitus Screening for colon cancer Screening for breast cancer Post-menopausal Depression Left hip pain Left shoulder pain Slurred speech Left lateral abdominal pain Urinary incontinence Osteomyelitis Weight gain Abdominal muscle strain Marginal ulcer Bipolar disorder Anemia ADHD PTSD (post-traumatic stress disorder) Back pain DDD (degenerative disc disease) SOB (shortness of breath) Upper back pain on left side Dizziness Hx of small bowel obstruction Right rotator cuff tear Iron deficiency anemia Obesity GERD (gastroesophageal reflux disease) Hypercholesterolemia Anxiety and depression Osteoarthritis Lumbar disc herniation Surgical History History of esophagogastroduodenoscopy (EGD) Hx of colonoscopy History of adjustable gastric banding History of removal of laparoscopic gastric banding device Hx of section S/P panniculectomy Hx of laparoscopic gastric banding Hx of laminectomy Hx laparoscopic cholecystectomy History of Theo-en-Y gastric bypass Hx of tonsillectomy Family History Father HTN (hypertension) DM (diabetes mellitus) Bladder cancer Prostate cancer Hyperlipidemia Mother Thyroid nodule Brother No problems noted. Sister No problems noted. Son No problems noted. Daughter No problems noted. Social History Household Members: Spouse, Children and Other Household Members Other:: dog and cat Housing: House Do you presently have visiting nurse or other home services: No Alcohol intake: never Patient Tobacco Use Status: Never used Tobacco e-Cigarette/Vaping Use: Never Used Second Hand Smoke Exposure: No Substance Use Type: Opiates Advance Directives Date on File: 02/10/21 service: No Current occupational status: disabled Sexual orientation: Straight/Heterosexual Cognitive needs: No Hearing needs: No Vision needs: Yes Review of Systems Const Reports as per HPI ENT Reports no additional complaints Card Denies chest pain, Denies chest pain at rest and Denies chest pain with activity Resp Denies chest congestion and Denies cough GI Reports no additional complaints Musc Details: pain over varicosities, aching of lower extremities, swelling, cramping, heaviness and tiredness, itching Denies abnormal gait Skin/Breast Reports pruritus and Denies wounds Neuro Reports no additional complaints and Denies abnormal gait Psych Denies no additional complaints Physical Exam Vital Signs: BMI result Body Mass Index 40.9 Const General: cooperative, healthy appearing and comfortable Orientation/consciousness: oriented to person, oriented to place and oriented to time Neck Carotids: no bruits Chest Chest palpation & inspection: normal inspection of the chest and normal palpation of entire chest wall Resp Effort & Inspection: normal respiratory effort and able to speak in complete sentences Cardio Rate: regular rate Heart sounds: S1 normal heart sound present and S2 normal heart sound present Peripheral pulses: Peripheral pulses 2+ throughout GI Inspection: Yes normal to inspection Skin Other: +2 edema, General skin exam: dry skin Neuro General: oriented to person, oriented to place and oriented to time Extrem Right lower extremity: full ROM, normal capillary refill and edema Left lower extremity: full ROM, normal capillary refill and edema Psych Mental Status: mental status grossly normal Assessment & Plan Assessment & Plan (1) Varicose veins of right lower extremity with inflammation: Code(s): I83.11 - Varicose veins of right lower extremity with inflammation Plan: In short, the patient has evidence of venous insufficiency. I have discussed the pathophysiology with the patient. In addition I have provided informational material regarding venous disease to the patient. We have discussed conservative measures including compression, elevation, and exercise. I have also provided a handout regarding appropriate use of compression stockings and where to purchase good compression stockings as well. I have taken the liberty of ordering venous insufficiency testing with the patient. They will follow up with me after testing. The patient had an opportunity to ask questions regarding the treatment plan. All questions were answered. Imaging studies, laboratory studies and physical exam results were discussed and reviewed in detail. No major barriers to understanding were identified. The patient expressed understanding and agreement with the above treatment plan. The patient is aware they should contact our office by phone for worsening of the current condition or the appearance of new symptoms. Thank you for allowing me to participate in the vascular care of this patient. If you have any questions or concerns regarding the treatment for the above condition please do not hesitate to contact me. The office telephone contact is [phone]. This note is constructed using voice recognition software. While every effort has been made to ensure accuracy, senior medical transcriptionist errors may have been included. Thank you for allowing me to participate in the care of your patient. Yours sincerely, Mihcael Bonilla MD, FACS, R.P.V.I. Orders: Orders US venous duplex LE BI 1 Week I83.11 - Varicose veins of right lower extremity with inflammation Coding Level of Care Code New Pt Level 4 (51918) Diagnoses Varicose veins of right lower extremity with inflammation I83.11
== END 2022-11-23 11:01 | disposition home or self-care (01) ==
PROVIDERS: PCP Internal Medicine; Visit Provider Surgery Vascular Surgery
DX: I83.11 Varicose veins of right lower extremity with inflammation (principal)
CPT/HCPCS: 99203

== ENCOUNTER → 2022-11-23 10:27 | Outpatient (BNVA) | payer MEDICARE, MEDICAID, SELFPAY | PROVIDERS: PCP Internal Medicine; Visit Provider Surgery Vascular Surgery ==

== ENCOUNTER 2022-11-24 11:06 | Outpatient (AMB) | payer OTHER, SELFPAY ==
--- NOTE | 2022-11-24 11:09 | MHC.OFFVIS ---
Intake Vital Signs 11/24/22 11:11 Height 5 ft 9 in Weight 279 lb 15.793 oz BMI 41.3 BP 127/79 Blood Pressure Location Lt brachial Position Sitting Pulse 75 Intake Visit Reasons: abdominal pain Intake Note: Norma presents in the office as a follow up for abdominal pains. CC: Since her last visit she had a revision of her gastric bypass. Stop pantoprazole due to diarrhea. She was told that she has thickening of her ascending bowel and she has colitis. She said that her last colonoscopy was normal and she would like to know how did this happen? She state that she takes pepto bismol to get a formed stool. 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 Recap: Patient was seen in our office in April 2021 (Amparo Schwarz) for chief complaint of nausea and diarrhea. She underwent an upper endoscopy, (see details in procedure note 10/01) but essentially had a 7 cm pouch without any GJ anastomotic stricture or anastomotic ulcer. Biopsies negative for H pylori. Colonoscopy was poor prep especially in the right colon. Had 7 polyps all tubular adenomas. 11/02/21: Patient has persistent intermittent left abdominal pain. States then often associated with nausea and dry heaves. Had another episode yesterday as well, which was associated with inability to tolerate p.o. intake. She reverted herself to NPO status, and this morning felt a bit better to have some breakfast. Also describes multiple episodes of scant liquid bowel movements with urgency. Had been taking p.r.n. Imodium for diarrhea . She denies any difficulty swallowing, unintentional weight loss-in fact is quite concerned about the weight gain that she has had. No fevers or chills. She has had multiple admissions for partial SBOs at [facility] and [facility] in the past 2-3 years. Conservatively managed. Patient is status post Theo-en-Y gastric bypass. She is on oral multivitamin supplements, as well as gets B12 injections monthly. Recent folate, B12, and vitamin-D results reviewed. Surgical hx: C section x 2 - 1992, 1998 RYGB - 2001 (Dr Price @ [facility]) Laproscopic TEDDY - 2009 ([facility]) Lap gastric band placement - 2014 (Dr Bello @ [facility]) Lap aldair - 2015 (Dr Bello @ [facility]) Lap gastric band removal (due to slippage) - 2017 (Dr Bello @ [facility]) Procedure Hx: Colonoscopy - 2009 (Dr Adriana Cuello) Intra-op EGD - 2017 (Dr Bello @ [facility]) Colon[facility] - 2019 [facility]: Impression: 1. Normal colon and terminal ileum mucosa 2. Internal hemorrhoids Recommendations: - Repeat colonoscopy in 3-5 years due to x7 adenomas in 2021. 11/24/22: Comes in for follow up after abnormal CT scan. Reports that had been doing well since her colonoscopy. Was seen by Dr De La Cruz was second opinion on RYGB and underwent what sounds like TORe based on her description. 2 months after this procedure, she developed insiduous onset of left sided abd pain which is well localised and present every day and starts as soon as she wakes up. Does not change with food, type of food defecation. Also associated with nausea and diarrhea. Was having 4 loose stools/ day with urgency. Has been taking peptobismol which has led to formed stool for the past month. Sometimes will also take imodium mira if going out. Given her abd sx her PCP ordered a CT scan of abd/pel which showed ascending colon thickening for which she has been referred to our office. [facility] Medical History Morbid obesity Polyarthralgia LLQ abdominal pain Chronic diarrhea Adult general medical exam Screening for diabetes mellitus Screening for colon cancer Screening for breast cancer Post-menopausal Depression Left hip pain Left shoulder pain Slurred speech Left lateral abdominal pain Urinary incontinence Osteomyelitis Weight gain Abdominal muscle strain Marginal ulcer Bipolar disorder Anemia ADHD PTSD (post-traumatic stress disorder) Back pain DDD (degenerative disc disease) SOB (shortness of breath) Upper back pain on left side Dizziness Hx of small bowel obstruction Right rotator cuff tear Iron deficiency anemia Obesity GERD (gastroesophageal reflux disease) Hypercholesterolemia Anxiety and depression Osteoarthritis Lumbar disc herniation Surgical History History of esophagogastroduodenoscopy (EGD) Hx of colonoscopy History of adjustable gastric banding History of removal of laparoscopic gastric banding device Hx of section S/P panniculectomy Hx of laparoscopic gastric banding Hx of laminectomy Hx laparoscopic cholecystectomy History of Theo-en-Y gastric bypass Hx of tonsillectomy Family History Father HTN (hypertension) DM (diabetes mellitus) Bladder cancer Prostate cancer Hyperlipidemia Mother Thyroid nodule Brother No problems noted. Sister No problems noted. Son No problems noted. Daughter No problems noted. Social History Household Members: Spouse, Children and Other Household Members Other:: dog and cat Housing: House Do you presently have visiting nurse or other home services: No Alcohol intake: never Patient Tobacco Use Status: Never used Tobacco e-Cigarette/Vaping Use: Never Used Second Hand Smoke Exposure: No Substance Use Type: Opiates Advance Directives Date on File: 02/10/21 service: No Current occupational status: disabled Sexual orientation: Straight/Heterosexual Cognitive needs: No Hearing needs: No Vision needs: Yes Review of Systems Const All systems reviewed & are unremarkable except as noted in HPI and below Physical Exam Vital Signs: Last Vital Signs Pulse 75 11/24/22 11:11 BP 127/79 11/24/22 11:11 BMI result Body Mass Index 41.3 Gen appear: NAD HEENT: nonicteric, no cervical lymphadenopathy Chest: CTA CVS: Regular S1/S2 Abd: soft, nontender, nondistended, bowel sounds + Ext: no peripheral edema Neuro: A/Ox3, noted to move all extremities spontaneously Psych: interacting appropriately Assessment & Plan Assessment & Plan (1) Diarrhea: Code(s): R19.7 - Diarrhea, unspecified (2) Left sided abdominal pain: Code(s): R10.9 - Unspecified abdominal pain (3) Colon wall thickening: Code(s): K63.9 - Disease of intestine, unspecified Plan 1. LUQ pain and nausea: Suspect this is unrelated to the AC wall thickening noted on CT. Most likely related to RYGB status with recent TORe. Ddx include anastomotic ulcer, adhesive disease, afferent loop syndrome etc. - Would recommend UGIS +/- EGD. Pt has an upcoming appt with her surgeon and would like to discuss this with him as well. - She will contact our office to let us know if she would like to get the procedures done from here vs surgeon's office. 2. Abnormal colon wall thickening: Noted on CT done last month for chronic diarrhea. Started on Cipro for presumed infectious colitis. To recall has had intermittent diarrhea last year as well for which she underwent bidirectional endoscopy. Bx neg for microscopic colitis. Had a completion colo May 2022 with adequate prep (BBPS 07/30) without any mucosal abnormality. Plan: - Check stool studies C Diff, GI panel, fecal calpro - Can consider repeat colo vs imaging based on sx after completing cipro and lab results from above Follow up contingent on above Orders: Orders FL upper GI series Today R10.9 - Unspecified abdominal pain CDiff Gene PCR Today R19.7 - Diarrhea, unspecified C Reactive Protein Today R19.7 - Diarrhea, unspecified Calprotectin, Fecal Today R19.7 - Diarrhea, unspecified GI Panel Today R19.7 - Diarrhea, unspecified Coding Level of Care Code Est Pt Level 4 (58395) Diagnoses Diarrhea R19.7 Left sided abdominal pain R10.9 Colon wall thickening K63.9
[2022-11-24 11:11] VITALS: BP 127/79; PULSE 75; BMI 41.3
== END 2022-11-24 13:07 | disposition home or self-care (01) ==
PROVIDERS: PCP Internal Medicine; Visit Provider Internal Medicine
DX: R19.7 Diarrhea, unspecified (principal); R10.9 Unspecified abdominal pain; K63.9 Disease of intestine, unspecified
CPT/HCPCS: 99214

== ENCOUNTER → 2022-11-24 11:06 | Outpatient (BNVA) | payer OTHER, SELFPAY | PROVIDERS: PCP Internal Medicine; Visit Provider Internal Medicine | DX: R19.7 Diarrhea, unspecified (principal); R10.9 Unspecified abdominal pain; K63.9 Disease of intestine, unspecified | CPT/HCPCS: 99212 ==

== ENCOUNTER 2022-11-29 13:06 | Outpatient (REF) | payer OTHER, SELFPAY ==
[2022-12-06 17:28] LABS: Calprotectin, Fecal 148 mcg/g
== END 2022-11-29 13:07 | disposition home or self-care (01) ==
LOC: HO.LAB 13:06
PROVIDERS: PCP Internal Medicine; Visit Provider Internal Medicine
DX: R19.7 Diarrhea, unspecified (principal)
CPT/HCPCS: 36415; 83993; 86140; 87493; 87507

== ENCOUNTER 2022-12-20 10:24 | Outpatient (REF) | payer OTHER, SELFPAY ==
--- NOTE | ~2022-12-20 | US_ITS ---
EXAMINATION: RIGHT and LEFT LOWER EXTREMITY VENOUS ULTRASOUND (Reflux Exam) CLINICAL INDICATION: Varicose veins right lower extremity with inflammation COMPARISON: None. TECHNIQUE: Color flow triplex imaging and compression Doppler was performed to evaluate both the deep and the superficial systems bilaterally. To evaluate the superficial system, the examination was performed in the upright position. Color-flow Doppler ultrasound and compression ultrasound were utilized. In addition, maneuvers were utilized to demonstrate reflux. FINDINGS: 1. DEEP VENOUS ULTRASOUND OF THE RIGHT LOWER EXTREMITY: Respiratory variation, normal compression and augmented flow are noted in the right common femoral vein, right femoral vein, as well as the right popliteal vein and there is no evidence of deep venous thrombosis at these locations. There is no evidence of reflux in the deep system in either the common femoral vein or the popliteal vein. . There is no evidence of a Sexton's cyst. 2. SUPERFICIAL ULTRASOUND WITH DOPPLER OF RIGHT LOWER EXTREMITY: The right great saphenous vein at the saphenofemoral junction measures 8 mm, at the mid thigh 4 mm, cvevt-wpc-wvij 5 mm, fvkor-wro-ccbt 3 mm, at mid calf 2 mm and at the ankle measures 4 mm. There is no reflux demonstrated in the right great saphenous vein. Accessory vein medially measuring up to 4 mm without reflux. The right small saphenous vein measures 4 mm and shows no reflux. Multiple perforators without reflux. Multiple varicose veins without reflux. 3. DEEP VENOUS ULTRASOUND OF THE LEFT LOWER EXTREMITY: Respiratory variation, normal compression and augmented flow are noted in the left common femoral vein, femoral vein as well as the left popliteal vein and there is no evidence of deep venous thrombosis at these locations. There is no evidence of reflux in the deep system in either the common femoral vein or the popliteal vein. . There is no evidence of a Sexton's cyst. 4. SUPERFICIAL ULTRASOUND WITH DOPPLER OF LEFT LOWER EXTREMITY: Left great saphenous vein at the saphenofemoral junction measures 9 mm, at the mid thigh for mm, dyjyo-zhg-lbrk for mm, rjunx-stb-oljn 3 mm, at mid calf 3 mm and at the ankle measures 4 mm. There is no reflux demonstrated in the left great saphenous vein. Accessory vein noted laterally measuring 6 mm without reflux. The left small saphenous vein measures 5 mm and shows no reflux. Cook Chief measuring 4 mm with reflux. Varicose veins without reflux. US/US venous duplex LE BI IMPRESSION: 1. RIGHT: No reflux of the deep system. No reflux of the superficial system. Perforators without reflux. Varicose veins without reflux. 2. LEFT: No reflux of the deep system. No reflux of the superficial system. Cook Chief with reflux. Varicose veins without reflux.
[2022-12-21 14:53] LABS: Adenovirus F 40/41 Not Detected (Not Detect.); Astrovirus Not Detected (Not Detect.); Campylobacter Not Detected (Not Detect.); Cryptosporidium Not Detected (Not Detect.); Cyclospora cayetanensis Not Detected (Not Detect.); E. coli EAEC Not Detected (Not Detect.); E. coli EPEC Not Detected (Not Detect.); E. coli ETEC Not Detected (Not Detect.); E. coli STEC Not Detected (Not Detect.); Entamoeba histolytica Not Detected (Not Detect.); Giardia lamblia Not Detected (Not Detect.); Norovirus GI/GII Not Detected (Not Detect.); Plesiomonas shigelloides Not Detected (Not Detect.); Rotavirus A Not Detected (Not Detect.); Salmonella Not Detected (Not Detect.); Sapovirus Not Detected (Not Detect.); Shigella sp./EIEC Not Detected (Not Detect.); Vibrio Not Detected (Not Detect.); Vibrio Cholerae Not Detected (Not Detect.); Yersinia enterocolitica Not Detected (Not Detect.)
== END 2022-12-20 10:25 | disposition home or self-care (01) ==
LOC: HO.US 10:24
PROVIDERS: Internal Medicine; Visit Provider Surgery Vascular Surgery
DX: I83.11 Varicose veins of right lower extremity with inflammation (principal)
CPT/HCPCS: 87507; 93970

== ENCOUNTER 2022-12-23 10:21 | Outpatient (AMB) | payer OTHER, SELFPAY ==
--- NOTE | 2022-12-23 10:28 | MHC.OFFVISWM ---
Intake VS Expanded 12/23/22 10:39 BP 133/70 Blood Pressure Location Rt brachial Blood Pressure Position Sitting Pulse 97 Pulse Source Pulse Oximeter Temp 96.7 F L Temperature Source Tympanic Pulse Oximetry 95 Oxygen Delivery Method Room Air Height 5 ft 8 in Weight 274 lb 6.4 oz BMI 41.7 Body Fat % 48.1 Body Fat Mass 131.8 Fat Free Mass 142.4 Visceral Fat Rating 16.0 Body Water % 36.9 Body Water Mass 101.2 Muscle Mass/Score 135.2 Basal Metabolic Rate/Score 2,015 Intake Visit Reasons: (OV) POM S/P LRGYB 2002 Allergies amoxicillin [Amoxicillin] Allergy (Severe, Verified 12/23/22 10:32) HIVES, swelling Medication List - Last Reconciled 12/23/22 by EFREN Buenrostro carisoprodol (Soma) 350 mg PO TID PRN cholecalciferol (vitamin D3) 125 mcg PO DAILY diazepam 5 mg PO TID diclofenac sodium 1% (Voltaren Arthritis Pain) 4 grams topical QID levothyroxine 75 mcg PO DAILY 90 days lithium carbonate 600 mg PO DAILY lorazepam 0.5 - 1 mg PO BID PRN lurasidone (Latuda) 60 mg PO BEDTIME HPI HPI Comments History of Present Illness Details This?is a?62?yo female who is s/p RYGB 200, band over bypass 2014, and band removal 2017. Weight at last visit on 12/31/2020 was 227.2 pounds with a BMI of 33.5, weight today is 274.4 pounds, representing a 47.2 pound weight gain with a BMI today of 40.5.? No complaints of nausea, emesis, abdominal pain or reflux, or constipation. Her mother , she initially gained a lot of weight but recently lost 25 lbs on her own. Cholesterol has improved on labs in September. States I need to see the head of human resources. Present meal plan includes: Cereal for breakfast whatever for lunch likes Premier but thinks she gained weight while using them I'm a carb eater eats a lot of rice and beans, fried pork chops does not like any shakes or bars Exercise routine includes: I can't exercise because I have two knees bone on bone, my back is bone on bone, I need two new shoulders . Has not been to PT, does not want to go although it was been suggested. Did the patient ever have any of these conditions and are they resolved or still being treated? GERD: rare KYRA:? needs sleep study DM:? never HTN:? never Hyperlipidemia:?high levels, not on meds Post op complications:? band slippage after 2014 band placement, requiring removal in 2018 [facility] Medical History Morbid obesity Polyarthralgia LLQ abdominal pain Chronic diarrhea Adult general medical exam Screening for diabetes mellitus Screening for colon cancer Screening for breast cancer Post-menopausal Depression Left hip pain Left shoulder pain Slurred speech Left lateral abdominal pain Urinary incontinence Osteomyelitis Weight gain Abdominal muscle strain Marginal ulcer Bipolar disorder Anemia ADHD PTSD (post-traumatic stress disorder) Back pain DDD (degenerative disc disease) SOB (shortness of breath) Upper back pain on left side Dizziness Hx of small bowel obstruction Right rotator cuff tear Iron deficiency anemia Obesity GERD (gastroesophageal reflux disease) Hypercholesterolemia Anxiety and depression Osteoarthritis Lumbar disc herniation Surgical History History of esophagogastroduodenoscopy (EGD) Hx of colonoscopy History of adjustable gastric banding History of removal of laparoscopic gastric banding device Hx of section S/P panniculectomy Hx of laparoscopic gastric banding Hx of laminectomy Hx laparoscopic cholecystectomy History of Theo-en-Y gastric bypass Hx of tonsillectomy Family History Father HTN (hypertension) DM (diabetes mellitus) Bladder cancer Prostate cancer Hyperlipidemia Mother Thyroid nodule Brother No problems noted. Sister No problems noted. Son No problems noted. Daughter No problems noted. Social History Household Members: Spouse, Children and Other Household Members Other:: dog and cat Housing: House Do you presently have visiting nurse or other home services: No Alcohol intake: never Patient Tobacco Use Status: Never used Tobacco e-Cigarette/Vaping Use: Never Used Second Hand Smoke Exposure: No Substance Use Type: Opiates Advance Directives Date on File: 02/10/21 service: No Current occupational status: disabled Sexual orientation: Straight/Heterosexual Cognitive needs: No Hearing needs: No Vision needs: Yes Physical Exam Const General: cooperative, comfortable and no acute distress Orientation/consciousness: patient oriented x3 GI Other: soft, nontender, nondistended, incisions well healed (large open GBP incision in LUQ), no hernia, no masses Neuro General: patient oriented x3 Assessment & Plan Assessment & Plan (1) History of Theo-en-Y gastric bypass: Comment: 2002 Code(s): Z98.84 - Bariatric surgery status (2) Obesity: Comment: GBP 3003 - then Lap band July 2014, Dr. Yash Byrd and removed in 2017 Code(s): E66.9 - Obesity, unspecified Qualifiers: Obesity type: due to excess calories Obesity classification: adult class 2 (BMI 35 - 39.9) Serious obesity comorbidity presence: with serious comorbidity Body mass index: BMI 36.0-36.9 Qualified Code(s): E66.01 - Morbid (severe) obesity due to excess calories; Z68.36 - Body mass index [BMI] 36.0-36.9, adult Plan Pt specifically requests a visit with RD so will schedule. She is going to [place] for 2 weeks starting 12/31 for her daughter's wedding. I gave her a meal plan of 2 Premier shakes, 1 yogurt, and one meal of protein/veg to follow for now although she has a lot of food preferences and expresses frustration about having to plan her life around certain foods/products she has been prescribed to take. Will also order vitamin labs as those have not been drawn recently. Texted meal plan to pt and encouraged her to reach out with any questions. Patient is morbidly obese and is not considered stable at this time. I spent a total of 30 minutes reviewing/updating records, examining the patient and counseling the patient on weight management as detailed above. Orders: Orders Zinc Today Z98.84 - Bariatric surgery status PTHI Today Z98.84 - Bariatric surgery status Vitamin B1 Today Z98.84 - Bariatric surgery status Vitamin A Today Z98.84 - Bariatric surgery status Vitamin D 25-OH Total Today Z98.84 - Bariatric surgery status Vitamin B12 and Folate Today Z98.84 - Bariatric surgery status Coding Level of Care Code Est Pt Level 4 (72343) Diagnoses History of Theo-en-Y gastric bypass Z98.84 Class 2 severe obesity due to excess calories with serious comorbidity and body mass index (BMI) of 36.0 to 36.9 in adult E66.01; Z68.36 Obesity type: due to excess calories Obesity classification: adult class 2 (BMI 35 - 39.9) Serious obesity comorbidity presence: with serious comorbidity Body mass index: BMI 36.0-36.9
[2022-12-23 10:39] VITALS: BP 133/70; PULSE 97; TEMP 35.9; O2SAT 95; BMI 41.7
== END 2022-12-23 11:14 | disposition home or self-care (01) ==
PROVIDERS: PCP Internal Medicine; Visit Provider Physician Assistant Surgical
DX: E66.01 Morbid (severe) obesity due to excess calories (principal); Z68.36 Body mass index [BMI] 36.0-36.9, adult; Z98.84 Bariatric surgery status
CPT/HCPCS: 99214

== ENCOUNTER → 2022-12-23 10:21 | Outpatient (BNVA) | payer OTHER, SELFPAY | PROVIDERS: PCP Internal Medicine; Visit Provider Physician Assistant Surgical | DX: E66.01 Morbid (severe) obesity due to excess calories (principal); Z68.41 Body mass index [BMI] 40.0-44.9, adult; Z98.84 Bariatric surgery status | CPT/HCPCS: 99212 ==

== ENCOUNTER → 2023-01-19 09:54 | Outpatient (BNVA) | payer OTHER, SELFPAY | PROVIDERS: PCP Internal Medicine; Visit Provider Dietitian, Registered | DX: Z98.84 Bariatric surgery status (principal) | CPT/HCPCS: 97803 ==

== ENCOUNTER 2023-01-27 13:28 | Outpatient (REF) | payer OTHER, SELFPAY ==
[2023-01-27 15:01] LABS: Vitamin D 25-OH Total 34.4 ng/mL (>30)
[2023-01-27 15:13] LABS: Folate 11.3 ng/mL (> or = 4.0); Vitamin B12 429 pg/mL (200-900)
[2023-01-31 19:54] LABS: Zinc 51 mcg/dL (60-130)
[2023-02-01 22:03] LABS: Vitamin A 69 mcg/dL (38-98)
[2023-02-02 06:23] LABS: Vitamin B1 11 nmol/L (8-30)
== END 2023-01-27 13:29 | disposition home or self-care (01) ==
LOC: HO.LAB 13:28
PROVIDERS: PCP Internal Medicine; Visit Provider Physician Assistant Surgical
DX: E03.9 Hypothyroidism, unspecified (principal); R73.03 Prediabetes; Z98.84 Bariatric surgery status
CPT/HCPCS: 36415; 82306; 82607; 82746; 84425; 84590; 84630

== ENCOUNTER 2023-02-10 08:54 | Outpatient (REF) | payer OTHER, SELFPAY ==
--- NOTE | ~2023-02-10 | FL_ITS ---
EXAMINATION: XR FLUOROSCOPY UPPER GI WITH AIR CLINICAL INFORMATION: Epigastric pain. History of colitis. History of gastric bypass COMPARISON: None TECHNIQUE: Fluoroscopic air contrast upper GI examination was performed utilizing standard techniques with thin and thick barium and effervescent granules. Numerous spot images were obtained. FINDINGS: Dual and single contrast images of the esophagus demonstrate ballooning of the hypopharynx and mild cricopharyngeal achalasia. Normal caliber, contour, and mucosal pattern. No evidence of stricture, mass, or ulcerations identified. There is to and fro motion of the barium column with nonpropulsive tertiary contractions noted. A nonobstructive Schatzki's ring is present. A small type I hiatal hernia is present. No significant gastroesophageal reflux was seen during the course of the examination and on reflux views. Dual contrast and single contrast images of the stomach demonstrated postsurgical changes consistent with prior Theo-en-Y gastric bypass. The pouch appears dilated. There is a small blind pouch of the Theo limb adjacent to the gastrojejunostomy. Mucosal pattern appears normal without evidence of mass, ulceration, or other abnormality. Contrast freely passed into the Theo limb. The imaged jejunum of the Theo limb has a normal fold pattern and caliber. FLUOROSCOPY TIME: 4 minutes 42 seconds Number of Spot Images: 11 Number of Cine: 9 DOSE AREA PRODUCT: 3411 uGy-m2 (microgray-meter squared) FL/FL upper GI w air IMPRESSION: 1. Marked esophageal dysmotility. 2. Ballooning of hypopharynx with mild cricopharyngeal achalasia 3. Nonobstructive Schatzki's ring 4. Small type I hiatal hernia 5. Postsurgical changes consistent with prior Theo-en-Y gastric bypass. Pouch appears dilated. There is a small blind pouch of the Theo limb adjacent to the gastrojejunostomy. This procedure was performed by Kael Abad PA-C, and supervised by Dr. Puentes
== END 2023-02-10 08:55 | disposition home or self-care (01) ==
LOC: HO.XRAY 08:54
PROVIDERS: Visit Provider Internal Medicine
DX: R10.9 Unspecified abdominal pain (principal)
CPT/HCPCS: 74246

== ENCOUNTER → 2023-02-10 08:56 | Outpatient (BNV) | payer OTHER, SELFPAY | PROVIDERS: Visit Provider Radiology Diagnostic Radiology | DX: R10.13 Epigastric pain (principal) | CPT/HCPCS: 74246 ==

== ENCOUNTER 2023-03-02 09:45 | Outpatient (AMB) | payer MEDICARE, MEDICAID, SELFPAY ==
--- NOTE | 2023-03-02 09:48 | A.OFFVIS_ITS ---
Intake Intake Visit Reasons: (OV) POM S/P LRGYB 2002 Allergies amoxicillin [Amoxicillin] Allergy (Severe, Verified 12/23/22 10:32) HIVES, swelling HPI Nutrition Presentation Details LRYGB in 2001, a lap band placed over her gastric bypass on 08/08/2014, and the lap band removed in 05/2017. Hx of drug use current weight 272.8# Reason for consult elevated BMI Diet Assmnt Details she lives her with her son adn who are somewhat inflexible changing eating habits. This makes it challenging to make habit change for herself. unstructured with eating habits, often times out of the house and has to get restaurant food. we talked about some alternatives. Also likes to dine out with partner and friends (examles of foods she gets - burger without the bun and fries, pancakes, wonton soup, various kinds of soup, turkey/mashed potato/stuff ing) . Her close friend is a GBP of [facility], this friend loves to cook - makes bariatric meals in appropriate portions. Dietary counseling reduction Diagnosis Nutrition problem #1 undesirable food choices As related to (etiology) #1 lack of nutrit education As evidenced by (sign/symptom) #1 food recall, knowledge deficit of diet and no prior educ - nutri rec Monitoring/Goals Nutrition problem monitoring total energy intake, level of knowledge/skill and weight Outcome progress verbalized understanding Learning/Education Readiness to learn good Stages of change contemplation Educational materials provided Yes Most Recent Diabetes Results: No Data to Display PFSH Medical History Morbid obesity Polyarthralgia LLQ abdominal pain Chronic diarrhea Adult general medical exam Screening for diabetes mellitus Screening for colon cancer Screening for breast cancer Post-menopausal Depression Left hip pain Left shoulder pain Slurred speech Left lateral abdominal pain Urinary incontinence Osteomyelitis Weight gain Abdominal muscle strain Marginal ulcer Bipolar disorder Anemia ADHD PTSD (post-traumatic stress disorder) Back pain DDD (degenerative disc disease) SOB (shortness of breath) Upper back pain on left side Dizziness Hx of small bowel obstruction Right rotator cuff tear Iron deficiency anemia Obesity GERD (gastroesophageal reflux disease) Hypercholesterolemia Anxiety and depression Osteoarthritis Lumbar disc herniation Surgical History History of esophagogastroduodenoscopy (EGD) Hx of colonoscopy History of adjustable gastric banding History of removal of laparoscopic gastric banding device Hx of section S/P panniculectomy Hx of laparoscopic gastric banding Hx of laminectomy Hx laparoscopic cholecystectomy History of Theo-en-Y gastric bypass Hx of tonsillectomy Family History Father HTN (hypertension) DM (diabetes mellitus) Bladder cancer Prostate cancer Hyperlipidemia Mother Thyroid nodule Brother No problems noted. Sister No problems noted. Son No problems noted. Daughter No problems noted. Social History Household Members: Spouse, Children and Other Household Members Other:: dog and cat Housing: House Do you presently have visiting nurse or other home services: No Alcohol intake: never Patient Tobacco Use Status: Never used Tobacco e-Cigarette/Vaping Use: Never Used Second Hand Smoke Exposure: No Substance Use Type: Opiates Advance Directives Date on File: 02/10/21 service: No Current occupational status: disabled Sexual orientation: Straight/Heterosexual Cognitive needs: No Hearing needs: No Vision needs: Yes Assessment & Plan Assessment & Plan (1) Morbid (severe) obesity due to excess calories: Code(s): E66.01 - Morbid (severe) obesity due to excess calories Plan pt will be seen again in 6 weeks Patient Instructions: helped pt identify some of her major problem areas, which she is in agreement with 1. Most meals appear to be based on carb, minimal protein, minimal veg. talked about what she can add to her meals - more protein, more veg and working on carb portions. She had some ideas for food swaps she will make (egg drop soup instead of wonton, burger with veg with a few of her friends fries, etc..) 2. she wants to join the gym by our next appt - goal is to go for 10 minutes 3x per week to begin 3. she wants a weight loss goal by next appt. She feels that 5-6 pounds by Apr 12 is realistic Coding Level of Care Code Nutr Indiv Subseq (68558) Diagnoses Morbid (severe) obesity due to excess calories E66.01 Time Spent (min) 40
== END 2023-03-02 10:33 | disposition home or self-care (01) ==
PROVIDERS: Visit Provider Dietitian, Registered
DX: E66.01 Morbid (severe) obesity due to excess calories (principal)

== ENCOUNTER → 2023-03-02 09:45 | Outpatient (BNVA) | payer MEDICARE, MEDICAID, SELFPAY | PROVIDERS: Visit Provider Dietitian, Registered | DX: E66.01 Morbid (severe) obesity due to excess calories (principal) | CPT/HCPCS: 97803 ==

== ENCOUNTER 2023-03-03 17:07 | Outpatient (AMB) | payer MEDICARE, MEDICAID, SELFPAY ==
--- NOTE | 2023-03-03 17:11 | A.OFFPC_ITS ---
Vital Signs 03/03/23 17:13 Height 5 ft 8 in Weight 272 lb BMI 41.4 BP 112/80 Blood Pressure Location Lt brachial Position Sitting Intake Visit Reasons: Transfer of Care from Dr. Santiago Intake Note: Patient here transferring from Dr Santiago General Manager [employer] Required: No Accompanied by: Self / Same As Patient Allergies amoxicillin [Amoxicillin] Allergy (Severe, Verified 03/03/23 17:30) HIVES, swelling Medication List - Last Reconciled 03/03/23 by Shahida Graham MD carisoprodol (Soma) 350 mg PO TID PRN cholecalciferol (vitamin D3) 125 mcg PO DAILY diazepam 5 mg PO TID diclofenac sodium 1% (Voltaren Arthritis Pain) 4 grams topical QID levothyroxine 75 mcg PO DAILY 90 days lithium carbonate 600 mg PO DAILY lurasidone (Latuda) 60 mg PO BEDTIME zinc gluconate 30 mg PO DAILY Tobacco use date assessed: 03/03/23 Dental Screening Dental Screen Date: 03/03/23 Did you have a dental visit in the last 12 months?: Yes Did you have a dental problem in the last 6 months where you did not have access to dental care?: No Was dental information given to patient?: Patient has dentist HPI HPI Comments History of Present Illness Details This is a 62-year-old female with bipolar disorder, morbid obesity and hypothyroidism that complains of daytime sleepiness. She severely dozed off while watching TV, sitting and reading, laying down in the afternoon after lunch without alcohol and as a passenger in a car. Her [place] score Scale is 12 and a sleep study will be order. Bipolar disorder is follow by Psychiatry. She is morbidly obese with a BMI of 41.4 and has lost some weight and this is follow by weight management. TSH will be order to check her hypothyroidism. [facility] Medical History (Updated 03/03/23 @ 19:30 by Shahida Graham MD) Morbid obesity Polyarthralgia LLQ abdominal pain Chronic diarrhea Adult general medical exam Screening for diabetes mellitus Screening for colon cancer Screening for breast cancer Post-menopausal Depression Left hip pain Left shoulder pain Slurred speech Left lateral abdominal pain Urinary incontinence Osteomyelitis Weight gain Abdominal muscle strain Marginal ulcer Bipolar disorder Anemia ADHD PTSD (post-traumatic stress disorder) Back pain DDD (degenerative disc disease) SOB (shortness of breath) Upper back pain on left side Dizziness Hx of small bowel obstruction Right rotator cuff tear Iron deficiency anemia Obesity GERD (gastroesophageal reflux disease) Hypercholesterolemia Anxiety and depression Osteoarthritis Lumbar disc herniation Surgical History History of esophagogastroduodenoscopy (EGD) Hx of colonoscopy History of adjustable gastric banding History of removal of laparoscopic gastric banding device Hx of section S/P panniculectomy Hx of laparoscopic gastric banding Hx of laminectomy Hx laparoscopic cholecystectomy History of Theo-en-Y gastric bypass Hx of tonsillectomy Family History Father HTN (hypertension) DM (diabetes mellitus) Bladder cancer Prostate cancer Hyperlipidemia Mother Thyroid nodule Brother No problems noted. Sister No problems noted. Son No problems noted. Daughter No problems noted. Social History Household Members: Spouse, Children and Other Household Members Other:: dog and cat Housing: House Do you presently have visiting nurse or other home services: No Alcohol intake: never Patient Tobacco Use Status: Never used Tobacco e-Cigarette/Vaping Use: Never Used Second Hand Smoke Exposure: No Substance Use Type: Opiates Advance Directives Date on File: 02/10/21 service: No Current occupational status: disabled Sexual orientation: Straight/Heterosexual Cognitive needs: No Hearing needs: No Vision needs: Yes Questionnaire PHQ-9 Over the last 2 weeks, how often have you been bothered by any of the following problems? 1. Little interest or pleasure in doing things: nearly every day 2. Feeling down, depressed, or hopeless: more than half the days 3. Trouble falling or staying asleep, or sleeping too much: not at all 4. Feeling tired or having little energy: nearly every day 5. Poor appetite or overeating: not at all 6. Feeling bad about yourself - or that you are a failure or have let yourself or your family down: nearly every day 7. Trouble concentrating on things, such as reading the newspaper or watching television: nearly every day 8. Moving or speaking so slowly that other people could have noticed. Or the opposite - being so fidgety or restless that you have been moving around a lot more than usual: not at all 9. Thoughts that you would be better off or of hurting yourself in some way: not at all Total score: 14 Depression Screening Interpretation: Positive Depression Screening Follow-up: Existing condition, In treatment and Community Mental Health Worker F/U Depression Screening Done: Yes 80782 - PHQ-9 Billing: Yes Source: Developed by Drs. Nav Faust, July Contreras, Horacio Rudolph and colleagues, with an educational mustapha from [employer]. Thrive Questionnaire Date Thrive assessed: 03/03/23 I am a: Patient What is your living situation today?: I have a steady place to live Within the past 12 months, did the food you bought not last and you didn't have the money to get more?: Never true Within the past 12 months, did you worry whether your food would run out before you got money to buy more?: Never true Do you have trouble paying for medicines?: No Do you have trouble getting transportation to medical appointments?: No Do you have trouble paying your heating and electricity bill?: No Do you have trouble taking care of your child, family member or friend?: No Do you have trouble with day-to-day activities such as bathing, preparing meals, shopping, managing finances, etc.?: No Are you currently unemployed and looking for a job?: No Are you interested in more education?: No Please select the resources that you would like help with: None Currently or been in a relationship where the following occur: no concerns reported AUDIT C Alcohol Use Questionnaire (AUDIT-C) 1. How often do you have a drink containing alcohol?: Never Total Score: 0 GILDA-7 AMB Questionnaire GILDA-7 Date GILDA - 7 assessed: 03/03/23 Feeling nervous, anxious, or on edge: 1 = Several days Not being able to stop or control worryin = Several days Worrying too much about different things: 3 = Nearly every day Trouble relaxin = Nearly every day Being so restless that it is hard to sit still: 3 = Nearly every day Becoming easily annoyed or irritable: 3 = Nearly every day Feeling afraid as if something awful might happen: 0 = Not at all Total GILDA-7 score (0-4 normal; 5-9 mild; 10-14 moderate; 15-21 severe): 14 Source: Developed by Drs. Nav Faust, July Contreras, Horacio Rudolph and colleagues, with an educational mustapha from [employer]. GILDA-7 Assessment Billing GILDA-7 Assessment Tool: GILDA-7 Assessment 81494 Review of Systems Const All systems reviewed & are unremarkable except as noted in HPI and below Eyes Reports no additional complaints, Denies change in vision and Denies other visual disturbances Card Denies chest pain at rest, Denies chest pain with activity, Denies edema, Denies irregular heart rhythm, Denies claudication, Denies dyspnea, Denies dyspnea on exertion, Denies orthopnea, Denies paroxysmal nocturnal dyspnea and Denies slow heart rate Resp Denies cough, Denies dyspnea and Denies dyspnea on exertion GI Denies abdominal pain, Denies change in bowel habits, Denies excessive flatus, Denies nausea and Denies vomiting Denies urinary incontinence, Denies urinary hesitancy and Denies urinary urgency Musc Denies abnormal gait, Denies atrophy, Denies deformity and Denies limited range of motion Skin/Breast Denies bleeding lesions, Denies changing lesions and Denies rash Neuro Denies abnormal gait, Denies behavioral changes and Denies lack of coordination Psych Denies behavioral changes Physical exam (Primary Care) Vital Signs: Last Vital Signs BP 112/80 03/03/23 17:13 BMI result Body Mass Index 41.4 Tobacco/Smoking Status: Tobacco use Status Tobacco use date assessed 03/03/23 03/03/23 17:17 Patient Tobacco Use Status Never used Tobacco 03/03/23 17:17 e-Cigarette/Vaping Use Never Used 03/03/23 17:17 PHQ-9: PHQ-9 Score PHQ-9: Total score 14 03/03/23 17:32 Depression Screening Interpretation: Positive Depression Screening Follow-up: Existing condition, In treatment and Community Mental Health Worker F/U Thrive Assessment: Date of Thrive Assessment Date Thrive assessed 03/03/23 03/03/23 17:22 Currently or been in a relationship where the following occur: no concerns reported Eyes General: appearance normal, both eyes and all related structures Eyelids: Yes eyelids normal Conjunctivae: conjunctivae normal Neck Neck: Yes normal visual inspection and Yes supple Resp Effort & Inspection: normal respiratory effort Auscultation: clear to auscultation bilaterally Cardio Jugular venous distension: no JVD Rate: regular rate Rhythm: regular rhythm Heart sounds: S1 normal heart sound present and S2 normal heart sound present Extrem General: Yes full ROM Psych Appearance: grossly normal Assessment and Plan Assessment & Plan (1) Morbid obesity: Code(s): E66.01 - Morbid (severe) obesity due to excess calories Plan: Continue weight management. BMI goal is less than 30. (2) Daytime sleepiness: Code(s): R40.0 - Somnolence Plan: [place] score Scale of 12. Sleep study ordered. (3) Bipolar disorder: Comment: Dony psychaitry Code(s): F31.9 - Bipolar disorder, unspecified Plan: Continue lithium. Follow-up with psychiatry. (4) Hypothyroid: Code(s): E03.9 - Hypothyroidism, unspecified Qualifiers: Hypothyroidism type: acquired Qualified Code(s): E03.9 - Hypothyroidism, unspecified Plan: Continue levothyroxine. Monitor TSH. Orders: Orders Thyroid Stimulating Hormone Today E03.9 - Hypothyroidism, unspecified Free T4 (Free Thyroxine) Today E03.9 - Hypothyroidism, unspecified RT home sleep study Today R40.0 - Somnolence Coding Level of Care Code Est Pt Level 4 (70265) Diagnoses Morbid obesity E66.01 Daytime sleepiness R40.0 Bipolar disorder F31.9 Acquired hypothyroidism E03.9 Hypothyroidism type: acquired Additional Codes GILDA-7 Assessment Billing - GILDA-7 Assessment Tool: GILDA-7 Assessment 55939 ([id number]) Time Spent (min) 22
[2023-03-03 17:13] VITALS: BP 112/80; BMI 41.4
== END 2023-03-03 17:44 | disposition home or self-care (01) ==
PROVIDERS: PCP Internal Medicine; Visit Provider Internal Medicine
DX: F31.9 Bipolar disorder, unspecified (principal); E66.01 Morbid (severe) obesity due to excess calories; Z68.41 Body mass index [BMI] 40.0-44.9, adult; R40.0 Somnolence; E03.9 Hypothyroidism, unspecified
CPT/HCPCS: 96127; 99214

== ENCOUNTER 2023-03-22 14:10 | Outpatient (REF) | payer MEDICARE, MEDICAID, SELFPAY ==
[2023-03-22 16:07] LABS: Free T4 (Free Thyroxine) 0.82 ng/dL (0.71-1.85); Thyroid Stimulating Hormone 4.24 uIU/mL (0.32-4.0)
== END 2023-03-22 14:11 | disposition home or self-care (01) ==
LOC: HO.LAB 14:10
PROVIDERS: PCP Internal Medicine; Visit Provider Internal Medicine
DX: E03.9 Hypothyroidism, unspecified (principal)
CPT/HCPCS: 36415; 84439; 84443

== ENCOUNTER 2023-03-23 13:30 | Outpatient (AMB) | payer MEDICARE, MEDICAID, SELFPAY ==
[2023-03-23 13:36] VITALS: BP 132/86; PULSE 94; BMI 41.4
--- NOTE | 2023-03-23 13:36 | MHC.OFFVIS ---
Intake Vital Signs 03/23/23 13:36 Height 5 ft 8 in Weight 272 lb BMI 41.4 BP 132/86 Blood Pressure Location Lt brachial Position Sitting Pulse 94 Intake Visit Reasons: review results Intake Note: Norma presents in the office as a follow up for review or results. CC: No new concerns and states that she just wants to know what the next steps are and to review symptoms of EGD. Production Hand Required: No Allergies amoxicillin [Amoxicillin] Allergy (Severe, Verified 03/23/23 13:39) HIVES, swelling nickel Allergy (Mild, Verified 03/23/23 13:39) Unknown HPI HPI Comments History of Present Illness Details This is a 61y.o F with PMH of anxiety, depression, ADHD, status post Theo-en-Y gastric bypass 2001, lap band (2014) that had to be removed due to slippage (2017), history of multiple partial bowel obstructions conservatively managed, who is here for follow up. Recap: Patient was seen in our office in April 2021 (Amparo Schwarz) for chief complaint of nausea and diarrhea. She underwent an upper endoscopy, (see details in procedure note 10/01) but essentially had a 7 cm pouch without any GJ anastomotic stricture or anastomotic ulcer. Biopsies negative for H pylori. Colonoscopy was poor prep especially in the right colon. Had 7 polyps all tubular adenomas. 11/02/21: Patient has persistent intermittent left abdominal pain. States then often associated with nausea and dry heaves. Had another episode yesterday as well, which was associated with inability to tolerate p.o. intake. She reverted herself to NPO status, and this morning felt a bit better to have some breakfast. Also describes multiple episodes of scant liquid bowel movements with urgency. Had been taking p.r.n. Imodium for diarrhea . She denies any difficulty swallowing, unintentional weight loss-in fact is quite concerned about the weight gain that she has had. No fevers or chills. She has had multiple admissions for partial SBOs at [facility] and [facility] in the past 2-3 years. Conservatively managed. Patient is status post Theo-en-Y gastric bypass. She is on oral multivitamin supplements, as well as gets B12 injections monthly. Recent folate, B12, and vitamin-D results reviewed. Surgical hx: C section x 2 - 1992, 1998 RYGB - 2001 (Dr Price @ [facility]) Laproscopic TEDDY - 2009 ([facility]) Lap gastric band placement - 2014 (Dr Bello @ [facility]) Lap aldair - 2015 ([facility] B[facility] @ [facility]) Lap gastric band removal (due to slippage) - 2017 (Dr Bello @ [facility]) Procedure Hx: Colonoscopy - 2009 (Dr Adriana Cuello) Intra-op EGD - 2017 (Dr Bello @ [facility]) Colonoscopy - 2019 - incomplete due to poor prep (Dr Agudelo - [place]) 05/2022: Impression: 1. Normal colon and terminal ileum mucosa 2. Internal hemorrhoids Recommendations: - Repeat colonoscopy in 3-5 years due to x7 adenomas in 2021. 11/24/22: Comes in for follow up after abnormal CT scan. Reports that had been doing well since her colonoscopy. Was seen by Dr De La Cruz was second opinion on RYGB and underwent what sounds like TORe based on her description. 2 months after this procedure, she developed insiduous onset of left sided abd pain which is well localised and present every day and starts as soon as she wakes up. Does not change with food, type of food defecation. Also associated with nausea and diarrhea. Was having 4 loose stools/ day with urgency. Has been taking peptobismol which has led to formed stool for the past month. Sometimes will also take imodium mira if going out. Given her abd sx her PCP ordered a CT scan of abd/pel which showed ascending colon thickening for which she has been referred to our office. 03/23/23: Seen by her bariatric surgeon Dr De La Cruz after UGIS who did not recommend any further surgical or medical interventions. Pt herself does not have any swallowing discomfort despite suspicion of tight cricopharyngeus on UGIS. In addition, diarrhea is persistent. CT scan showed ? ascending colon wall thickening for which she is due for a diagnostic colonoscopy. [facility] Medical History Morbid obesity Polyarthralgia LLQ abdominal pain Chronic diarrhea Adult general medical exam Screening for diabetes mellitus Screening for colon cancer Screening for breast cancer Post-menopausal Depression Left hip pain Left shoulder pain Slurred speech Left lateral abdominal pain Urinary incontinence Osteomyelitis Weight gain Abdominal muscle strain Marginal ulcer Bipolar disorder Anemia ADHD PTSD (post-traumatic stress disorder) Back pain DDD (degenerative disc disease) SOB (shortness of breath) Upper back pain on left side Dizziness Hx of small bowel obstruction Right rotator cuff tear Iron deficiency anemia Obesity GERD (gastroesophageal reflux disease) Hypercholesterolemia Anxiety and depression Osteoarthritis Lumbar disc herniation Surgical History History of esophagogastroduodenoscopy (EGD) Hx of colonoscopy History of adjustable gastric banding History of removal of laparoscopic gastric banding device Hx of section S/P panniculectomy Hx of laparoscopic gastric banding Hx of laminectomy Hx laparoscopic cholecystectomy History of Theo-en-Y gastric bypass Hx of tonsillectomy Family History Father HTN (hypertension) DM (diabetes mellitus) Bladder cancer Prostate cancer Hyperlipidemia Mother Thyroid nodule Brother No problems noted. Sister No problems noted. Son No problems noted. Daughter No problems noted. Social History Household Members: Spouse, Children and Other Household Members Other:: dog and cat Housing: House Do you presently have visiting nurse or other home services: No Alcohol intake: never Patient Tobacco Use Status: Never used Tobacco e-Cigarette/Vaping Use: Never Used Second Hand Smoke Exposure: No Substance Use Type: Opiates Advance Directives Date on File: 02/10/21 service: No Current occupational status: disabled Sexual orientation: Straight/Heterosexual Cognitive needs: No Hearing needs: No Vision needs: Yes Review of Systems Const All systems reviewed & are unremarkable except as noted in HPI and below Physical Exam Vital Signs: Last Vital Signs Pulse 94 03/23/23 13:36 BP 132/86 03/23/23 13:36 BMI result Body Mass Index 41.4 Gen appear: NAD HEENT: nonicteric, no cervical lymphadenopathy Chest: CTA CVS: Regular S1/S2 Abd: soft, nontender, nondistended, bowel sounds + Ext: no peripheral edema Neuro: A/Ox3, noted to move all extremities spontaneously Psych: interacting appropriately Assessment & Plan Assessment & Plan (1) Diarrhea: Code(s): R19.7 - Diarrhea, unspecified (2) Left sided abdominal pain: Code(s): R10.9 - Unspecified abdominal pain (3) Colon wall thickening: Code(s): K63.9 - Disease of intestine, unspecified (4) Cricopharyngeal achalasia: Code(s): K22.0 - Achalasia of cardia Plan 1. Abnormal UGIS We will book her for a diagnostic upper endoscopy with possible dilation given cricopharyngeal stenosis with resultant proximal dilation noted on upper GI series. Schatzki's ring appears nonobstructive on the scan, however again will evaluate luminally as well. - EGD with dilation to be booked 2. Abnormal colon wall thickening: Noted on CT done last year for chronic diarrhea. Initially was given a trial of Cipro, which did not improve the diarrhea at all. Continues to have loose watery bowel movements, which she reports are much worse than last year. To recall has had intermittent diarrhea 2021 as well for which she underwent bidirectional endoscopy. Bx neg for microscopic colitis. Had a completion colo May 2022 with adequate prep (BBPS 07/30) without any mucosal abnormality. In any case, since has worsening symptoms and CT scan with isolated ascending colon wall thickening with an elevated fecal calprotectin, will proceed with repeat colonoscopy for evaluation. Plan: - colo to be booked alongside the upper endoscopy - patient has known history of poor prep in the past, and will be given double the amount of prep as was done in 2022. Follow up after endoscopy Medications: New peg 3350-electrolytes 236-22.74-6.74 -5.86 gram (Golytely) as per split prep instructions, until fecal effluent is clear 240 mL PO Q10M 4,000 mL 0RF colonoscopy peg 3350-electrolytes 236-22.74-6.74 -5.86 gram (Golytely) as per split prep instructions, until fecal effluent is clear 240 mL PO Q10M 4,000 mL 0RF colonoscopy Coding Level of Care Code Est Pt Level 4 (08727) Diagnoses Diarrhea R19.7 Left sided abdominal pain R10.9 Colon wall thickening K63.9 Cricopharyngeal achalasia K22.0
== END 2023-03-23 14:59 | disposition home or self-care (01) ==
PROVIDERS: PCP Internal Medicine; Visit Provider Internal Medicine
DX: R19.7 Diarrhea, unspecified (principal); R10.9 Unspecified abdominal pain; K63.9 Disease of intestine, unspecified; K22.0 Achalasia of cardia
CPT/HCPCS: 99214

== ENCOUNTER → 2023-03-23 13:30 | Outpatient (BNVA) | payer MEDICARE, MEDICAID, SELFPAY | PROVIDERS: PCP Internal Medicine; Visit Provider Internal Medicine | DX: R19.7 Diarrhea, unspecified (principal); R10.9 Unspecified abdominal pain; K63.9 Disease of intestine, unspecified; K22.0 Achalasia of cardia | CPT/HCPCS: 99212 ==

== ENCOUNTER 2023-03-30 14:31 | Outpatient (REF) | payer MEDICARE, MEDICAID, SELFPAY ==
[2023-03-30 15:59] LABS: Lithium 0.72 mmol/L (0.60-1.20)
[2023-03-30 16:03] LABS: Free T4 (Free Thyroxine) 1.06 ng/dL (0.71-1.85); Insulin 13 uU/mL (2-29); T4 Thyroxine 8.7 ug/dL (4.5-12.0); Vitamin D 25-OH Total 35.9 ng/mL (>30)
[2023-03-30 16:07] LABS: Vitamin B12 351 pg/mL (200-900)
[2023-03-31 11:04] LABS: Triiodothyronine T3 Free 3.1 pg/mL (2.3-4.2); Triiodothyronine T3 Total 108 ng/dL (76-181)
[2023-04-03 14:03] LABS: Triiodothyronine T3 Reverse 15 ng/dL (8-25)
== END 2023-03-30 14:32 | disposition home or self-care (01) ==
LOC: HO.LAB 14:31
PROVIDERS: Visit Provider Psychiatry & Neurology Psychiatry
DX: E03.9 Hypothyroidism, unspecified (principal); R73.03 Prediabetes; E07.81 Sick-euthyroid syndrome
CPT/HCPCS: 36415; 80178; 82306; 82607; 83525; 84436; 84439; 84443; 84480; 84481; 84482

== ENCOUNTER → 2023-04-12 08:50 | Outpatient (REF) | payer MEDICARE, MEDICAID, SELFPAY | LOC: HO.SL 08:50 | PROVIDERS: PCP Internal Medicine; Visit Provider Internal Medicine | DX: G47.33 Obstructive sleep apnea (adult) (pediatric) (principal); R40.0 Somnolence | CPT/HCPCS: 95806 ==

== ENCOUNTER → 2023-04-12 09:00 | Outpatient (BNV) | payer MEDICARE, MEDICAID, SELFPAY | PROVIDERS: PCP Internal Medicine; Visit Provider Internal Medicine | DX: G47.33 Obstructive sleep apnea (adult) (pediatric) (principal) | CPT/HCPCS: 95806 ==

== ENCOUNTER 2023-04-27 07:45 | Emergency (ER) | payer MEDICARE, MEDICAID, SELFPAY ==
--- NOTE | ~2023-04-27 | XR_ITS ---
EXAMINATION: XR CHEST CLINICAL INFORMATION: Cough and shortness of breath COMPARISON: Chest x-ray 04/30/2022 TECHNIQUE: 2 views of the chest were obtained. FINDINGS: Cardiac silhouette is normal in size. The lungs are well aerated. Subtle linear opacity of the right lower lung, nonspecific. No lobar consolidation. No pleural effusion or pneumothorax. Mild degenerative changes of the spine. XR/XR chest 2V IMPRESSION: Subtle linear opacity of the right lower lung is nonspecific but suspected to represent atelectasis.
[2023-04-27 07:47] VITALS: BP 148/123; PULSE 100; RESP 20; TEMP 37.2; O2SAT 95; BMI 39.9
[2023-04-27 08:26] LABS: IDNOW Serial# 08D9AD1C; Strep A Nucleic Acid Negative (Negative)
[2023-04-27 08:51] LABS: Influenza A PCR NEGATIVE (Negative); Influenza B PCR NEGATIVE (Negative); Resp Syncy Virus RNA Qual PCR NEGATIVE (Negative); SARS COV2 PCR INHOUSE NEGATIVE (Negative)
--- NOTE | 2023-04-27 09:33 | ED.URI ---
HPI - URI/Sore Throat General Chief Complaint: Upper Respiratory Symptoms Stated Complaint: Cough, congestion Time Seen by Provider: 04/27/23 09:25 Source: patient Mode of arrival: ambulatory Limitations: no limitations History of Present Illness HPI Narrative: 62-year-old female presents with fatigue, malaise, myalgias, productive cough for the past 4 days worsening. Patient reports that symptoms have been getting worse, she reports her cough is now very strong, barky, productive of yellow/green sputum. Patient also reports shortness of breath with ambulation. No associated chest pain. Denies sick contacts. Patient denies nausea, vomiting, abdominal pain, chest pain, headache, vision changes, dizziness, weakness. Related Data Home Medications Medication Instructions Recorded Confirmed lithium carbonate 300 mg capsule 600 mg PO DAILY 02/25/22 03/03/23 carisoprodol 350 mg tablet (Soma) 350 mg PO TID PRN Pain 03/03/22 03/03/23 cholecalciferol (vitamin D3) 125 125 mcg PO DAILY 11/24/22 03/03/23 mcg (5,000 unit) capsule diazepam 5 mg tablet 5 mg PO TID 11/24/22 03/03/23 lurasidone 40 mg tablet (Latuda) 60 mg PO BEDTIME 11/24/22 03/03/23 Previous Rx's Medication Instructions Recorded diclofenac sodium 1 % topical gel 4 g topical QID #100 grams 03/03/22 (Voltaren Arthritis Pain) zinc gluconate 30 mg tablet 30 mg PO DAILY #90 tabs 02/08/23 levothyroxine 88 mcg tablet 88 mcg PO DAILY 90 days #90 tabs 03/22/23 peg 3350-electrolytes 236 240 ml PO Q10M colonoscopy #4,000 03/23/23 gram-22.74 gram-6.74 gram-5.86 mL gram solution (Golytely) albuterol sulfate 90 mcg/actuation 2 inh inhalation Q4-6H PRN 04/27/23 breath activated powder inhaler shortness of breath or wheezing #1 ea doxycycline hyclate 100 mg capsule 100 mg PO BID 10 days #20 caps 04/27/23 prednisone 20 mg tablet 40 mg (2 x 20 mg) PO DAILY 5 days 04/27/23 #10 tabs Allergies Allergy/AdvReac Type Severity Reaction Status Date / Time amoxicillin [Amoxicillin] Allergy Severe HIVES, Verified 04/27/23 07:52 swelling nickel Allergy Mild Unknown Verified 04/27/23 07:52 Review of Systems Review of Systems: Yes all other systems are reviewed and are negative [facility] Past Medical History Attestation statement: The following information was validated with the patient. Source: old records reviewed and nursing notes reviewed Medical History Morbid obesity Polyarthralgia LLQ abdominal pain Chronic diarrhea Adult general medical exam Screening for diabetes mellitus Screening for colon cancer Screening for breast cancer Post-menopausal Depression Left hip pain Left shoulder pain Slurred speech Left lateral abdominal pain Urinary incontinence Osteomyelitis Weight gain Abdominal muscle strain Marginal ulcer Bipolar disorder Anemia ADHD PTSD (post-traumatic stress disorder) Back pain DDD (degenerative disc disease) SOB (shortness of breath) Upper back pain on left side Dizziness Hx of small bowel obstruction Right rotator cuff tear Iron deficiency anemia Obesity GERD (gastroesophageal reflux disease) Hypercholesterolemia Anxiety and depression Osteoarthritis Lumbar disc herniation Surgical History History of esophagogastroduodenoscopy (EGD) Hx of colonoscopy History of adjustable gastric banding History of removal of laparoscopic gastric banding device Hx of section S/P panniculectomy Hx of laparoscopic gastric banding Hx of laminectomy Hx laparoscopic cholecystectomy History of Theo-en-Y gastric bypass Hx of tonsillectomy Family History Family History Father HTN (hypertension) DM (diabetes mellitus) Bladder cancer Prostate cancer Hyperlipidemia Mother Thyroid nodule Brother No problems noted. Sister No problems noted. Son No problems noted. Daughter No problems noted. Social History Social History Household Members: Spouse, Children and Other Household Members Other:: dog and cat Housing: House Do you presently have visiting nurse or other home services: No Alcohol intake: never Patient Tobacco Use Status: Never used Tobacco e-Cigarette/Vaping Use: Never Used Second Hand Smoke Exposure: No Substance Use Type: Opiates Advance Directives Date on File: 02/10/21 service: No Current occupational status: disabled Sexual orientation: Straight/Heterosexual Cognitive needs: No Hearing needs: No Vision needs: Yes Physical Exam Vital Signs: Vital Signs: Last Vital Signs Temp 98.9 F 04/27/23 07:47 Pulse 100 04/27/23 07:47 Resp 20 04/27/23 07:47 BP 148/123 H 04/27/23 07:47 Pulse Ox 95 04/27/23 07:47 O2 Del Method Room Air 04/27/23 07:47 BMI result Body Mass Index 39.9 Course Reevaluation(s) Reevaluation #1: Subtle linear opacity in the right lower lung nonspecific but suspected to represent atelectasis however due to patient history and physical exam concerns for developing possible pneumonia. Time: 09:37 Reevaluation #2: Educated patient on diagnosis and treatment plan, answered all question, patient verbalizes understanding. At this time patient will be discharged home, advised to return with new or worsening symptoms. Educated on worrisome signs and symptoms and when to return. At this time I feel comfortable discharge home. Medical Decision Making Medical Decision Making [facility] Narrative: ??62-year-old female presenting with viral symptoms ongoing for the past few days. ??Physical examination benign ?This is likely flu vs COVID vs RSV vs other viral illness?vs bronchitis vs pneumonia,. Unlikely PE, ACS, acute respiratory distress, pneumothorax, CHF. Plan- viral test, cxr Differential Diagnosis Differential Diagnoses: The differential diagnosis associated with the presentation includes This is likely flu vs COVID vs RSV vs other viral illness?vs bronchitis vs pneumonia,. Unlikely PE, ACS, acute respiratory distress, pneumothorax, CHF. Admission/Observation Consideration of admission/observation: Escalation of care including admission/observation considered No indication Lab Data [facility] Lab Attestation statement: I reviewed the patient's lab results. Labs: Lab Results 04/27/23 Range/Units 08:06 Influenza Type A (PCR) NEGATIVE (Negative) Influenza Type B (PCR) NEGATIVE (Negative) RSV RNA Qual (PCR) NEGATIVE (Negative) SARS-CoV-2 RNA (RT-PCR) NEGATIVE (Negative) S. pyogenes GrpA REYNOLD Negative (Negative) Independent Interpretation I performed an independent interpretation of an: Plain X-Ray ( XR/XR chest 2V IMPRESSION: Subtle linear opacity of the right lower lung is nonspecific but suspected to represent atelectasis. ) Radiology Impression Discussion of test interpretation with radiology: I have reviewed the radiologist's reading. External Record Review External record reviewed: Inpatient record, Office record, Outpatient record, Prior outpatient labs, Prior outpatient radiology, Primary care record and Outside ED record Prescription Management I considered prescription management with: Antibiotic and Other (Prednisone, albuterol) Chronic Conditions Patient?s care impacted by: Other (GERD, hypercholesterolemia, bipolar, obesity, hypothyroid,) Critical Care Time Critical Care Time Critical Care Time: No Discharge Plan Discharge Clinical Impression: Bronchitis Patient Disposition: Home, Self-Care Instructions: Acute Bronchitis (ED) Additional Instructions: Take your medications as prescribed. If you were prescribed antibiotics today, it is important that you take your medication to their entirety, do not skip any doses, do not finish them early. Follow-up with your primary care provider this week. Return to the emergency department with new or worsening symptoms. Such as fevers, chills, chest pain, shortness of breath, nausea, vomiting, dizziness, headache, vision changes, lethargy In case of emergency call 911 Prescriptions: New albuterol sulfate 90 mcg/actuation aerosol powdr breath activated 2 inh inhalation Q4-6H PRN (Reason: shortness of breath or wheezing) Qty: 1 0RF doxycycline hyclate 100 mg capsule 100 mg PO BID 10 Days Qty: 20 0RF prednisone 20 mg tablet 40 mg PO DAILY 5 Days Qty: 10 0RF No Action zinc gluconate 30 mg tablet 30 mg PO DAILY Qty: 90 3RF levothyroxine 88 mcg tablet 88 mcg PO DAILY 90 Days Qty: 90 0RF carisoprodol [Soma] 350 mg tablet 350 mg PO TID PRN (Reason: Pain) diclofenac sodium [Voltaren Arthritis Pain] 1 % gel 4 g topical QID Qty: 100 4RF Rx Instructions: apply to single knee, ankle, foot; for foot includes sole/toes/top of foot lithium carbonate 300 mg capsule 600 mg PO DAILY lurasidone [Latuda] 40 mg tablet 60 mg PO BEDTIME cholecalciferol (vitamin D3) 125 mcg (5,000 unit) capsule 125 mcg PO DAILY diazepam 5 mg tablet 5 mg PO TID peg 3350-electrolytes [Golytely] 236-22.74-6.74 -5.86 gram recon soln 240 ml PO Q10M Qty: 4000 0RF Rx Instructions: as per split prep instructions, until fecal effluent is clear Referrals: Shahida Trevizo MD [Primary Care Provider] - 2 days Stand Alone Forms: Work/School Release Interventions: ED Discharge Assessment Last Done: 04/27/23 09:58 Discharge Date/Time: 04/27/23 09:58
== END 2023-04-27 09:58 | disposition home or self-care (01) ==
PROVIDERS: Emergency Provider Emergency Medicine; PCP Internal Medicine
DX: J40 Bronchitis, not specified as acute or chronic (principal); Z11.52 Encounter for screening for COVID-19; Z20.828 Contact with and (suspected) exposure to other viral communicable diseases
CPT/HCPCS: 0241U; 71046; 87651; 99282; 99283

== ENCOUNTER 2023-04-28 09:51 | Outpatient (REF) | payer MEDICARE, MEDICAID, SELFPAY | END 2023-04-28 09:52 | disposition home or self-care (01) | LOC: HO.HOSX 09:51 | PROVIDERS: Visit Provider Orthopaedic Surgery | DX: Z13.89 Encounter for screening for other disorder (principal) ==

== ENCOUNTER 2023-05-04 12:27 | Outpatient (AMB) | payer MEDICARE, MEDICAID, SELFPAY ==
[2023-05-04 12:51] VITALS: BMI 39.9
--- NOTE | 2023-05-04 12:51 | MHC.OFFVIS ---
Intake Vital Signs 05/04/23 12:51 Height 5 ft 9 in Weight 270 lb BMI 39.9 Intake Visit Reasons: [employer]- B/L Knee pain Intake Note: Norma is a 62 year old female who presents as a new patient with bilateral knee pain. Patient reports her pain has been going on for about 20 years and is a 8 on the 1-10 pain scale. Her Right is worse. She reports having injections her last was on Right knee on 03/01/2023.She denies surgerys. She did fall about year and half ago on to her knees. The patient states that she has lost approximately 30 lb over the last year by changing her diet. At this point her right knee pain is interfering with her activities of daily living and her ability to sleep well through the night. The patient states that she thinks she has an allergy to nickel. Allergies amoxicillin [Amoxicillin] Allergy (Severe, Verified 05/04/23 13:03) HIVES, swelling nickel Allergy (Mild, Verified 05/04/23 13:03) Unknown Medication List - Last Reconciled 05/04/23 by Boris Matthews MD carisoprodol (Soma) 350 mg PO TID PRN cholecalciferol (vitamin D3) 125 mcg PO DAILY diazepam 5 mg PO TID diclofenac sodium 1% (Voltaren Arthritis Pain) 4 grams topical QID doxycycline hyclate 100 mg PO BID 10 days levothyroxine 88 mcg PO DAILY 90 days lithium carbonate 600 mg PO DAILY lurasidone (Latuda) 60 mg PO BEDTIME peg 3350-electrolytes 236-22.74-6.74 -5.86 gram (Golytely) 240 mL PO Q10M zinc gluconate 30 mg PO DAILY [facility] Medical History Morbid obesity Polyarthralgia LLQ abdominal pain Chronic diarrhea Adult general medical exam Screening for diabetes mellitus Screening for colon cancer Screening for breast cancer Post-menopausal Depression Left hip pain Left shoulder pain Slurred speech Left lateral abdominal pain Urinary incontinence Osteomyelitis Weight gain Abdominal muscle strain Marginal ulcer Bipolar disorder Anemia ADHD PTSD (post-traumatic stress disorder) Back pain DDD (degenerative disc disease) SOB (shortness of breath) Upper back pain on left side Dizziness Hx of small bowel obstruction Right rotator cuff tear Iron deficiency anemia Obesity GERD (gastroesophageal reflux disease) Hypercholesterolemia Anxiety and depression Osteoarthritis Lumbar disc herniation Surgical History History of esophagogastroduodenoscopy (EGD) Hx of colonoscopy History of adjustable gastric banding History of removal of laparoscopic gastric banding device Hx of section S/P panniculectomy Hx of laparoscopic gastric banding Hx of laminectomy Hx laparoscopic cholecystectomy History of Theo-en-Y gastric bypass Hx of tonsillectomy Family History Father HTN (hypertension) DM (diabetes mellitus) Bladder cancer Prostate cancer Hyperlipidemia Mother Thyroid nodule Brother No problems noted. Sister No problems noted. Son No problems noted. Daughter No problems noted. Social History Household Members: Spouse, Children and Other Household Members Other:: dog and cat Housing: House Do you presently have visiting nurse or other home services: No Alcohol intake: never Patient Tobacco Use Status: Never used Tobacco e-Cigarette/Vaping Use: Never Used Second Hand Smoke Exposure: No Substance Use Type: Opiates Advance Directives Date on File: 02/10/21 service: No Current occupational status: disabled Sexual orientation: Straight/Heterosexual Cognitive needs: No Hearing needs: No Vision needs: Yes Physical Exam Vital Signs: BMI result Body Mass Index 39.9 Const Other: Well-nourished well-developed very friendly female awake alert and oriented x3 in no acute distress Extrem Other: Bilateral lower extremity examination shows good capillary refill, no skin lesions noted, normal sensation light touch Bilateral knee examination shows minimal effusions, palpable crepitus with range of motion, pain with range of motion, no instability Results Reviewed Results Reviewed: X-rays of the patient's bilateral knee show severe joint space narrowing most significant in the patellofemoral joints, no acute bony abnormalities Assessment & Plan Assessment & Plan (1) Nickel allergy: Code(s): Z91.09 - Other allergy status, other than to drugs and biological substances Plan Ms. Cuellar presents with bilateral knee pains, right greater than left, due to degenerative joint disease. We will hold off on a right knee cortisone injection today because her last injection was in February. The patient is considering undergoing right total knee replacement surgery later this year. I will have her evaluated by an coat joiner to see if she indeed has an allergy to nickel. I will see her back in 6 weeks' time for repeat clinical examination. Feel free to call me at any time should questions regarding her orthopedic management arise. I spent 22 minutes in reviewing the patient's records and imaging studies, seeing the patient and documenting in the medical record. Orders: Orders XR knee LT 3V 04/28/23 M25.562 - Pain in left knee XR knee RT 3V 04/28/23 M25.561 - Pain in right knee XR knee RT 3V Today M25.561 - Pain in right knee XR knee LT 3V Today M25.562 - Pain in left knee Referrals Allergy & Immunology Referral Z91.09 - Other allergy status, other than to drugs and biological substances Coding Level of Care Code Est Pt Level 2 (89353) Diagnoses Nickel allergy Z91.09
== END 2023-05-04 13:22 | disposition home or self-care (01) ==
LOC: HO.HOS 12:27
PROVIDERS: PCP Internal Medicine; Visit Provider Orthopaedic Surgery
DX: M17.0 Bilateral primary osteoarthritis of knee (principal); Z91.09 Other allergy status, other than to drugs and biological substances
CPT/HCPCS: 99213

== ENCOUNTER 2023-05-04 15:40 | Outpatient (REF) | payer MEDICARE, MEDICAID, SELFPAY ==
--- NOTE | ~2023-05-04 | XR_ITS ---
EXAMINATION: XR BILATERAL KNEES CLINICAL INFORMATION: Pain in right knee, pain in left knee. COMPARISON: Left knee of 09/28/2021. TECHNIQUE: AP, lateral and sunrise views of each knee. FINDINGS: Right Knee: The bones are diffusely demineralized. No significant suprapatellar effusion. Prominent tricompartmental osteophytes. Possible mild chondrocalcinosis in the lateral compartment. Advanced degenerative changes with hypertrophic change in the patellofemoral joint. Left Knee: The bones are diffusely demineralized. Trace joint effusion. [id number] narrowing of the patellofemoral compartment. Tricompartmental osteophytes. Mild narrowing of the medial and lateral compartments. XR/XR knee RT 3V IMPRESSION: Degenerative changes bilateral knees.
--- NOTE | ~2023-05-04 | XR_ITS ---
EXAMINATION: XR BILATERAL KNEES CLINICAL INFORMATION: Pain in right knee, pain in left knee. COMPARISON: Left knee of 09/28/2021. TECHNIQUE: AP, lateral and sunrise views of each knee. FINDINGS: Right Knee: The bones are diffusely demineralized. No significant suprapatellar effusion. Prominent tricompartmental osteophytes. Possible mild chondrocalcinosis in the lateral compartment. Advanced degenerative changes with hypertrophic change in the patellofemoral joint. Left Knee: The bones are diffusely demineralized. Trace joint effusion. [id number] narrowing of the patellofemoral compartment. Tricompartmental osteophytes. Mild narrowing of the medial and lateral compartments. XR/XR knee LT 3V IMPRESSION: Degenerative changes bilateral knees.
== END 2023-05-04 15:41 | disposition home or self-care (01) ==
LOC: HO.HOSX 15:40
PROVIDERS: Visit Provider Orthopaedic Surgery
DX: M25.561 Pain in right knee (principal); M25.562 Pain in left knee; Z91.09 Other allergy status, other than to drugs and biological substances
CPT/HCPCS: 73562; 99212

== ENCOUNTER 2023-05-11 09:45 | Outpatient (REF) | payer MEDICARE, MEDICAID, SELFPAY ==
[2023-05-11 10:39] LABS: Lithium 0.25 mmol/L (0.60-1.20)
== END 2023-05-11 09:46 | disposition home or self-care (01) ==
LOC: HO.LAB 09:45
PROVIDERS: PCP Internal Medicine; Visit Provider Psychiatry & Neurology Psychiatry
DX: F31.9 Bipolar disorder, unspecified (principal); Z79.899 Other long term (current) drug therapy
CPT/HCPCS: 36415; 80178

== ENCOUNTER 2023-05-17 06:46 | Day surgery (SDC) | payer MEDICARE, MEDICAID, SELFPAY ==
--- NOTE | 2023-05-16 09:32 | P.CONAN_ITS ---
Documented by User: Char Bolaoñs NP 05/16/23 09:38 HPI - Anesthesia Eval Consult details Narrative: 62yo F for Upper Endoscopy with Balloon Dilitation, Colonoscopy PMFSH Active Problems Active Problems: All Active Problems (Updated 05/04/23 @ 13:17 by Boris Matthews MD) Nickel allergy (Acute) Right knee pain (Acute) Left knee pain (Acute) Cricopharyngeal achalasia (Acute) Morbid obesity (Acute) Daytime sleepiness (Acute) Colon wall thickening (Acute) Left sided abdominal pain (Acute) Varicose veins of right lower extremity with inflammation (Acute) Diarrhea (Acute) Bilateral swelling of feet (Acute) Right foot pain (Acute) Contusion of hand, right (Acute) Fibromyalgia, primary (Acute) Hypothyroid (Acute) [place] toxicity (Acute) Low vitamin D level (Acute) Elevated fasting glucose (Acute) Osteopenia (Acute) Abdominal pain (Acute) Left ankle pain (Acute) Contusion, chest wall (Acute) Hyperkalemia (Acute) Bipolar disorder (Acute) Obesity (Acute) History of Hteo-en-Y gastric bypass (Acute) Lumbar disc herniation (Acute) GERD (gastroesophageal reflux disease) (Acute) Hypercholesterolemia (Acute) Past Medical History Medical History (Updated 05/17/23 @ 08:18 by Rosa Barnhart MD) Morbid obesity Polyarthralgia LLQ abdominal pain Chronic diarrhea Adult general medical exam Screening for diabetes mellitus Screening for colon cancer Screening for breast cancer Post-menopausal Depression Left hip pain Left shoulder pain Slurred speech Left lateral abdominal pain Urinary incontinence Osteomyelitis Weight gain Abdominal muscle strain Marginal ulcer Bipolar disorder Anemia ADHD PTSD (post-traumatic stress disorder) Back pain DDD (degenerative disc disease) SOB (shortness of breath) Upper back pain on left side Dizziness Hx of small bowel obstruction Right rotator cuff tear Iron deficiency anemia Obesity GERD (gastroesophageal reflux disease) Hypercholesterolemia Anxiety and depression Osteoarthritis Lumbar disc herniation Family History Family History Father HTN (hypertension) DM (diabetes mellitus) Bladder cancer Prostate cancer Hyperlipidemia Mother Thyroid nodule Brother No problems noted. Sister No problems noted. Son No problems noted. Daughter No problems noted. Family history of problems with anesthesia: No Surgical History Surgical History History of esophagogastroduodenoscopy (EGD) Hx of colonoscopy History of adjustable gastric banding History of removal of laparoscopic gastric banding device Hx of section S/P panniculectomy Hx of laparoscopic gastric banding Hx of laminectomy Hx laparoscopic cholecystectomy History of Theo-en-Y gastric bypass Hx of tonsillectomy History of Problems with Anesthesia: No Social History Social History Household Members: Spouse, Children and Other Household Members Other:: dog and cat Housing: House Do you presently have visiting nurse or other home services: No Alcohol intake: never Patient Tobacco Use Status: Never used Tobacco e-Cigarette/Vaping Use: Never Used Second Hand Smoke Exposure: No Use of substances other than those prescribed or required for medical reasons: No Substance Use Type: Opiates Are you DNR?: No Advance Directives: No Advance Directives Information Provided: Yes Advance Directives Date on File: 02/10/21 service: No Current occupational status: disabled Sexual orientation: Straight/Heterosexual Cognitive needs: No Hearing needs: No Vision needs: Yes Meds Allergies Allergy/AdvReac Type Severity Reaction Status Date / Time amoxicillin [Amoxicillin] Allergy Severe HIVES, Verified 05/04/23 13:03 swelling nickel Allergy Mild Unknown Verified 05/04/23 13:03 Home Medications Medication Instructions Recorded Confirmed Last Taken Type lithium carbonate 300 mg capsule 600 mg PO DAILY 02/25/22 05/17/23 Unknown History carisoprodol 350 mg tablet (Soma) 350 mg PO TID PRN Pain 03/03/22 05/17/23 Unknown History cholecalciferol (vitamin D3) 125 125 mcg PO DAILY 11/24/22 05/17/23 Unknown History mcg (5,000 unit) capsule lurasidone 40 mg tablet (Latuda) 60 mg PO BEDTIME 11/24/22 05/17/23 Unknown History Assessment and Plan Assessment Anesthesia Assessment: Chart Reviewed Final Anesthetic Review Family History of Problems with Anesthesia: No History of Problems with Anesthesia: No Documented by User: Rosa Barnhart MD 05/17/23 08:21 [facility] Active Problems Active Problems: All Active Problems (Updated 05/17/23 @ 08:02 by Rosa Barnhart MD) Nickel allergy (Acute) Right knee pain (Acute) Left knee pain (Acute) Cricopharyngeal achalasia (Acute) Morbid obesity (Acute) BMI 39.7 Daytime sleepiness (Acute) Colon wall thickening (Acute) Left sided abdominal pain (Acute) Varicose veins of right lower extremity with inflammation (Acute) Diarrhea (Acute) Bilateral swelling of feet (Acute) Right foot pain (Acute) Contusion of hand, right (Acute) Fibromyalgia, primary (Acute) Hypothyroid (Acute) [place] toxicity (Acute) Low vitamin D level (Acute) Elevated fasting glucose (Acute) Osteopenia (Acute) Abdominal pain (Acute) Left ankle pain (Acute) Contusion, chest wall (Acute) Hyperkalemia (Acute) Bipolar disorder (Acute) History of Theo-en-Y gastric bypass (Acute) 2002 Lumbar disc herniation (Acute) GERD (gastroesophageal reflux disease) (Acute) Hypercholesterolemia (Acute) Past Medical History Medical History (Updated 05/17/23 @ 08:18 by Rosa Barnhart MD) Morbid obesity Polyarthralgia LLQ abdominal pain Chronic diarrhea Adult general medical exam Screening for diabetes mellitus Screening for colon cancer Screening for breast cancer Post-menopausal Depression Left hip pain Left shoulder pain Slurred speech Left lateral abdominal pain Urinary incontinence Osteomyelitis Weight gain Abdominal muscle strain Marginal ulcer Bipolar disorder Anemia ADHD PTSD (post-traumatic stress disorder) Back pain DDD (degenerative disc disease) SOB (shortness of breath) Upper back pain on left side Dizziness Hx of small bowel obstruction Right rotator cuff tear Iron deficiency anemia Obesity GERD (gastroesophageal reflux disease) Hypercholesterolemia Anxiety and depression Osteoarthritis Lumbar disc herniation Family History Family History Father HTN (hypertension) DM (diabetes mellitus) Bladder cancer Prostate cancer Hyperlipidemia Mother Thyroid nodule Brother No problems noted. Sister No problems noted. Son No problems noted. Daughter No problems noted. Family history of problems with anesthesia: No Surgical History Surgical History History of esophagogastroduodenoscopy (EGD) Hx of colonoscopy History of adjustable gastric banding History of removal of laparoscopic gastric banding device Hx of section S/P panniculectomy Hx of laparoscopic gastric banding Hx of laminectomy Hx laparoscopic cholecystectomy History of Theo-en-Y gastric bypass Hx of tonsillectomy History of Problems with Anesthesia: Yes (Became combative during EGD 2021 while desaturating. Converted to GETA. No further issues) Social History Social History Household Members: Spouse, Children and Other Household Members Other:: dog and cat Housing: House Do you presently have visiting nurse or other home services: No Alcohol intake: never Patient Tobacco Use Status: Never used Tobacco e-Cigarette/Vaping Use: Never Used Second Hand Smoke Exposure: No Use of substances other than those prescribed or required for medical reasons: No Substance Use Type: Opiates Are you DNR?: No Advance Directives: No Advance Directives Information Provided: Yes Advance Directives Date on File: 02/10/21 service: No Current occupational status: disabled Sexual orientation: Straight/Heterosexual Cognitive needs: No Hearing needs: No Vision needs: Yes Meds Allergies Allergy/AdvReac Type Severity Reaction Status Date / Time amoxicillin [Amoxicillin] Allergy Severe HIVES, Verified 05/04/23 13:03 swelling nickel Allergy Mild Unknown Verified 05/04/23 13:03 Home Medications Medication Instructions Recorded Confirmed Last Taken Type lithium carbonate 300 mg capsule 600 mg PO DAILY 02/25/22 05/17/23 Unknown History carisoprodol 350 mg tablet (Soma) 350 mg PO TID PRN Pain 03/03/22 05/17/23 Unknown History cholecalciferol (vitamin D3) 125 125 mcg PO DAILY 11/24/22 05/17/23 Unknown History mcg (5,000 unit) capsule lurasidone 40 mg tablet (Latuda) 60 mg PO BEDTIME 11/24/22 05/17/23 Unknown History Exam Height,Weight and Vital Signs: Height 5 ft 9 in Weight 121.79 kg Vital Signs Temp Pulse Resp BP Pulse Ox O2 Del Method 05/17/23 07:21 97.7 F 85 18 135/78 97 Room Air Airway Mallampati Class: III TM Dist: >3cm Neck ROM: Full Loose/Missing/Broken Teeth: No (Caps intact. denies broken, loose, missing teeth) Heart: RRR Lungs: CTAB Assessment and Plan Assessment Anesthesia Assessment: Anesthesia Plan Discussed and Chart Reviewed Final Anesthetic Review Family History of Problems with Anesthesia: No History of Problems with Anesthesia: Yes (Became combative during EGD 2021 while desaturating. Converted to GETA. No further issues) NPO: Yes ASA Class: III Final Preanesthetic Review: No Changes in Pt Med Stat, Meds/Allgs Chart Reviewed, Consent Obtained/Reviewed and Anes Risks/Benef Reviewed Patient Risk: Intermediate Procedure Risk: Low Assessment/Block/Sedation in SS: Assess/Block/Sedation-SS Anesthetic Plan Anesthetic Plan: MAC: and TIVA Disposition: Standard PACU
[2023-05-17 07:21] VITALS: BP 135/78; PULSE 85; RESP 18; TEMP 36.5; O2SAT 97; BMI 39.6
--- NOTE | 2023-05-17 08:09 | MHC.SHP ---
Pre-Procedural Eval Section A - 24 Hr Update-Section A only Date of Service: 05/17/23 Section B - Complete if H&P > 30 days Chief Complaint: Cricopharyngeal achalasia, diarrhea, colitis Details of Present Illness: Morbid obesity Polyarthralgia LLQ abdominal pain Chronic diarrhea Adult general medical exam Screening for diabetes mellitus Screening for colon cancer Screening for breast cancer Post-menopausal Depression Left hip pain Left shoulder pain Slurred speech Left lateral abdominal pain Urinary incontinence Osteomyelitis Weight gain Abdominal muscle strain Marginal ulcer Bipolar disorder Anemia ADHD PTSD (post-traumatic stress disorder) Back pain DDD (degenerative disc disease) SOB (shortness of breath) Upper back pain on left side Dizziness Hx of small bowel obstruction Right rotator cuff tear Iron deficiency anemia Obesity GERD (gastroesophageal reflux disease) Hypercholesterolemia Anxiety and depression Osteoarthritis Lumbar disc herniation Surgical History History of esophagogastroduodenoscopy (EGD) Hx of colonoscopy History of adjustable gastric banding History of removal of laparoscopic gastric banding device Hx of section S/P panniculectomy Hx of laparoscopic gastric banding Hx of laminectomy Hx laparoscopic cholecystectomy History of Theo-en-Y gastric bypass Hx of tonsillectomy Present Medications: see Short Stay Collaborative assessment Allergies: Allergies Allergy/AdvReac Type Severity Reaction Status Date / Time amoxicillin [Amoxicillin] Allergy Severe HIVES, Verified 05/04/23 13:03 swelling nickel Allergy Mild Unknown Verified 05/04/23 13:03 Review of Systems Review of Systems Comment: 10 point ROS negative Exam Exam Comment: Gen appear: No acute distress HEENT: no icterus Chest: No overt resp distress Abd: soft, nontender, nondistended Psych: Stable affect, answering questions appropriately Neuro: A/Ox3 noted to move all extremities spontaneously Ext: no peripheral edema Plan Diagnosis/Plan: Unchanged I have reviewed the history and physical and performed a pertinent physical examination on my patient. No changes have occurred unless specified. Time Spent With Patient Time: Total time managing care of this patient today ____ minutes.
--- NOTE | 2023-05-17 08:10 | P.OP_ITS ---
Operative Note Operative Note Date of Service: 05/17/23 Narrative: Procedure: Esophagogastroduodenoscopy and colonoscopy Endoscopist: Becca Schaefer MD Indication: Cricopharyngeal achalasia, diarrhea, colitis Anesthesia Provider: Dr Dudley Anesthesia Type: MAC Instrument: Olympus GIF-H190 and [id number]-[id number] ?? EGD Procedure:?? The procedure, indications, preparation and potential complications were reviewed with the patient, who indicated understanding and gave written informed consent to proceed. A physical exam was performed. The endoscope was introduced through the mouth, and advanced to the rian limb. The mucosa was carefully examined on slow withdrawal of the endoscope. The patient tolerated the procedure well. There were no immediate complications.? ? EGD Findings:? * Esophagus:? Normal mucosa noted in the entire esophagus. The Z line was at 37 cm. There was a non-obstructing Schatzki's ring. * Stomach:? Normal mucosa was noted in the stomach. Evidence of RYGB. The length of the gastric pouch is 8 cmm. The gastrojejunal anastomosis as located at 45cm. No stricture was felt and scoped easily traversed across the anastomosis. Gastric pouch has previously been biopsied. * Jejunum:? A small blind limb and the rian limb were identified. Normal mucosa to the extent examined. Additional intervention: A soft tipped Savary wire was introduced through the biopsy channel of the gastroscope and advanced to the gastrojejunal anastomosis. The gastroscope was then backed out. A Savary Kiara bougie was advanced over the guidewire and the esophagus was dilated to 18 mm. On relook, there was a small tear with the level of cricopharyngeus indicating successful dilation. Colonoscopy Procedure: The patient was then turned for the colonoscopy. A digital rectal exam was performed which was abnormal due to finding of ext hemorrhoids. A distal attachment cap was affixed to the tip of the colonoscope which was then inserted through the anus and advanced through the colon to the cecum at 70 cm and terminal ileum. Mucosa was carefully examined under high definition white light as the instrument was slowly withdrawn in a retrograde panoramic fashion. Retroflexion was performed in rectum. The procedure was not difficult. There were no immediate obvious complications. The quality of the prep was BBPS: 3+2+3 = adequate Withdrawal time 13 minutes. Limitations: No limitations. Findings: Mucosa: Normal to cecum and terminal ileum. Cold forceps biopsies were taken from R and L colon due to abnormal CT scan finding. Protruding lesions: * 1 sessile polyp of size 2 mm in cecum. Cold forceps polypectomy was performed. The polyp was completely removed and retrieved. * 1 sessile polyp of size 5 mm in descending colon. Cold snare polypectomy was performed. The polyp was completely removed and retrieved. * Medium internal hemorrhoids without stigmata of recent bleeding. Impression: * Schatzki's ring * Cricopharyngeal narrowing * Normal gastric mucosa. 8 cm gastric pouch. * Normal jejunum * Normal colon and terminal ileum mucosa (biopsy) * Total of 2 polyps removed * Internal and external hemorrhoids Recommendations * Follow biopsy results. Our office will call or send a letter with results within 7-10 days. * Avoid NSAIDs and smoking. * Repeat colonoscopy in 3-5 years due to x7 adenomas in 2021. Above has been reviewed with the patient
[2023-05-17] MEDS: Lactated Ringers 1,000 ML 100 ML IVCONT (08:11)
[2023-05-17 09:10] VITALS: BP 127/68; PULSE 97; RESP 20; TEMP 36.7; O2SAT 98
[2023-05-17 09:25] VITALS: BP 136/73; PULSE 77; RESP 18; TEMP 36.6; O2SAT 99
== END 2023-05-17 10:19 | disposition home or self-care (01) ==
PROVIDERS: PCP Internal Medicine; Visit Provider Internal Medicine
PROC: (CPT 45385; principal; 2023-05-17 08:00)
PROC: 0DJD8ZZ Inspection of Lower Intestinal Tract, Via Natural or Artificial Opening Endoscopic (ICD-10-PCS; CPT 45378; 2023-05-17 08:00)
DX: K52.9 Noninfective gastroenteritis and colitis, unspecified (principal); D12.0 Benign neoplasm of cecum; D12.4 Benign neoplasm of descending colon; K64.8 Other hemorrhoids; K64.4 Residual hemorrhoidal skin tags; K63.9 Disease of intestine, unspecified; K22.0 Achalasia of cardia; K22.2 Esophageal obstruction; R73.01 Impaired fasting glucose; M79.7 Fibromyalgia; D50.9 Iron deficiency anemia, unspecified; E66.01 Morbid (severe) obesity due to excess calories; Z68.41 Body mass index [BMI] 40.0-44.9, adult; E78.00 Pure hypercholesterolemia, unspecified; G47.33 Obstructive sleep apnea (adult) (pediatric); F41.8 Other specified anxiety disorders; Z79.891 Long term (current) use of opiate analgesic; Z79.899 Other long term (current) drug therapy; Z88.1 Allergy status to other antibiotic agents; Z98.84 Bariatric surgery status; Z98.890 Other specified postprocedural states; Z90.49 Acquired absence of other specified parts of digestive tract
CPT/HCPCS: 45385; 45380; 43248; 88305; C1769; J1596; J2704

== ENCOUNTER → 2023-05-17 06:46 | Outpatient (BNV) | payer MEDICARE, MEDICAID, SELFPAY | PROVIDERS: PCP Internal Medicine; Visit Provider Internal Medicine | DX: K22.2 Esophageal obstruction (principal); K22.0 Achalasia of cardia; R19.7 Diarrhea, unspecified; K63.5 Polyp of colon; K52.9 Noninfective gastroenteritis and colitis, unspecified; K64.8 Other hemorrhoids | CPT/HCPCS: 43249; 45380; 45385 ==

== ENCOUNTER 2023-06-01 14:44 | Outpatient (AMB) | payer MEDICARE, MEDICAID, SELFPAY ==
--- NOTE | 2023-06-01 14:46 | MHC.PC.OV ---
Vital Signs 06/01/23 14:48 Height 5 ft 9 in Weight 270 lb BMI 39.9 BP 122/80 Blood Pressure Location Lt brachial Position Sitting Intake Visit Reasons: post op endoscopy 05/16 Intake Note: Patient here for a follow up Endoscopy and c/o SOB Medicine Worker Required: No Accompanied by: Self / Same As Patient Allergies amoxicillin [Amoxicillin] Allergy (Severe, Verified 06/01/23 15:12) HIVES, swelling nickel Allergy (Mild, Verified 06/01/23 15:12) Unknown Medication List - Last Reconciled 06/01/23 by Shahida Graham MD carisoprodol (Soma) 350 mg PO TID PRN cholecalciferol (vitamin D3) 125 mcg PO DAILY diclofenac sodium 1% (Voltaren Arthritis Pain) 4 grams topical QID levothyroxine 88 mcg PO DAILY 90 days lithium carbonate 900 mg PO DAILY lurasidone (Latuda) 60 mg PO BEDTIME zinc gluconate 30 mg PO DAILY Tobacco use date assessed: 03/03/23 Dental Screening Dental Screen Date: 03/03/23 HPI HPI Comments History of Present Illness Details This is a 62-year-old female with hypothyroidism, bipolar disorder, obesity and low vitamin-D that comes today for follow-up on her conditions. TSH is normal. Bipolar disorder has been stable with lithium and Latuda. Vitamin-D supplements for her low vitamin-D. She is obese with a BMI of 39.9 and has been fighting with her weight for the last 20 years. Had gastric bypass in 2002, then lap band in 2015 which was removed few years after. Has been on multiple diets with no success. She will benefit from starting Wegovy. Complains of shortness of breath on exertion. Last echocardiogram was 2020 and was normal. No leg swelling. She does have lung nodules and follow with pulmonology. She most likely have a restrictive disease due to her weight. [facility] Medical History (Updated 06/01/23 @ 16:55 by Shahida Graham MD) Morbid obesity Polyarthralgia LLQ abdominal pain Chronic diarrhea Adult general medical exam Screening for diabetes mellitus Screening for colon cancer Screening for breast cancer Post-menopausal Depression Left hip pain Left shoulder pain Slurred speech Left lateral abdominal pain Urinary incontinence Osteomyelitis Weight gain Abdominal muscle strain Marginal ulcer Bipolar disorder Anemia ADHD PTSD (post-traumatic stress disorder) Back pain DDD (degenerative disc disease) SOB (shortness of breath) Upper back pain on left side Dizziness Hx of small bowel obstruction Right rotator cuff tear Iron deficiency anemia Obesity GERD (gastroesophageal reflux disease) Hypercholesterolemia Anxiety and depression Osteoarthritis Lumbar disc herniation Surgical History History of endoscopy History of esophagogastroduodenoscopy (EGD) Hx of colonoscopy History of adjustable gastric banding History of removal of laparoscopic gastric banding device Hx of section S/P panniculectomy Hx of laparoscopic gastric banding Hx of laminectomy Hx laparoscopic cholecystectomy History of Theo-en-Y gastric bypass Hx of tonsillectomy Family History Father HTN (hypertension) DM (diabetes mellitus) Bladder cancer Prostate cancer Hyperlipidemia Mother Thyroid nodule Brother No problems noted. Sister No problems noted. Son No problems noted. Daughter No problems noted. Social History Household Members: Spouse, Children and Other Household Members Other:: dog and cat Housing: House Do you presently have visiting nurse or other home services: No Alcohol intake: never Patient Tobacco Use Status: Never used Tobacco e-Cigarette/Vaping Use: Never Used Second Hand Smoke Exposure: No Substance Use Type: Opiates Advance Directives Date on File: 02/10/21 service: No Current occupational status: disabled Sexual orientation: Straight/Heterosexual Cognitive needs: No Hearing needs: No Vision needs: Yes Questionnaire Thrive Questionnaire Date Thrive assessed: 03/03/23 GILDA-7 AMB Questionnaire GILDA-7 Date GILDA - 7 assessed: 03/03/23 Source: Developed by Drs. Nav Faust, July Contreras, Horacio Rudolph and colleagues, with an educational mustapha from [employer]. Review of Systems Const All systems reviewed & are unremarkable except as noted in HPI and below Eyes Reports no additional complaints, Denies change in vision and Denies other visual disturbances Card Denies chest pain at rest, Denies chest pain with activity, Denies edema, Denies irregular heart rhythm, Denies claudication, Denies dyspnea, Denies dyspnea on exertion, Denies orthopnea, Denies paroxysmal nocturnal dyspnea and Denies slow heart rate Resp Denies cough, Denies dyspnea and Denies dyspnea on exertion GI Denies abdominal pain, Denies change in bowel habits, Denies excessive flatus, Denies nausea and Denies vomiting Denies urinary incontinence, Denies urinary hesitancy and Denies urinary urgency Physical exam (Primary Care) Vital Signs: Last Vital Signs BP 122/80 06/01/23 14:48 BMI result Body Mass Index 39.9 Tobacco/Smoking Status: Tobacco use Status Tobacco use date assessed 03/03/23 06/01/23 14:52 Patient Tobacco Use Status Never used Tobacco 06/01/23 14:52 e-Cigarette/Vaping Use Never Used 06/01/23 14:52 Thrive Assessment: Date of Thrive Assessment Date Thrive assessed 03/03/23 06/01/23 14:52 Neck Neck: Yes normal visual inspection and Yes supple Resp Effort & Inspection: normal respiratory effort Auscultation: clear to auscultation bilaterally Cardio Jugular venous distension: no JVD Rate: regular rate Rhythm: regular rhythm Heart sounds: S1 normal heart sound present and S2 normal heart sound present Extrem General: Yes full ROM Psych Appearance: grossly normal Assessment and Plan Assessment & Plan (1) Severe obesity (BMI 35.0-35.9 with comorbidity): Code(s): E66.01 - Morbid (severe) obesity due to excess calories; Z68.35 - Body mass index [BMI] 35.0-35.9, adult Plan: Start Wegovy. BMI goal is less than 30. (2) Hypothyroid: Code(s): E03.9 - Hypothyroidism, unspecified Qualifiers: Hypothyroidism type: acquired Qualified Code(s): E03.9 - Hypothyroidism, unspecified Plan: Continue levothyroxine. (3) Bipolar disorder: Comment: Dony psychaitry Code(s): F31.9 - Bipolar disorder, unspecified Plan: Continue lithium and Latuda. (4) Low vitamin D level: Code(s): R79.89 - Other specified abnormal findings of blood chemistry Plan: Continue vitamin-D supplements. Orders: Orders ECG 12 lead EKG Today R07.9 - Chest pain, unspecified Thyroid Stimulating Hormone 3 Months E03.9 - Hypothyroidism, unspecified Medications: New semaglutide (weight loss) (Wegovy) administer weeks 1 through 4 of therapy 0.25 mg (0.5 mL) subcut QWEEK 2 mL 0RF 28 days E66.01 - Morbid (severe) obesity due to excess calories, Z68.35 - Body mass index [BMI] 35.0-35.9, adult Coding Level of Care Code Est Pt Level 4 (95220) Diagnoses Severe obesity (BMI 35.0-35.9 with comorbidity) E66.01; Z68.35 Acquired hypothyroidism E03.9 Hypothyroidism type: acquired Bipolar disorder F31.9 Low vitamin D level R79.89 Time Spent (min) 21
[2023-06-01 14:48] VITALS: BP 122/80; BMI 39.9
== END 2023-06-01 15:26 | disposition home or self-care (01) ==
PROVIDERS: PCP Internal Medicine; Visit Provider Internal Medicine
DX: E03.9 Hypothyroidism, unspecified (principal); F31.9 Bipolar disorder, unspecified; E66.01 Morbid (severe) obesity due to excess calories; Z68.35 Body mass index [BMI] 35.0-35.9, adult; R79.89 Other specified abnormal findings of blood chemistry
CPT/HCPCS: 99214

== ENCOUNTER → 2023-06-13 11:29 | Outpatient (REF) | payer MEDICARE, MEDICAID, SELFPAY ==
--- NOTE | 2023-06-13 11:39 | ECG_ITS ---
Test Reason : CP Blood Pressure : / mmHG Vent. Rate : 082 BPM Atrial Rate : 082 BPM P-R Int : 148 ms QRS Dur : 082 ms QT Int : 390 ms P-R-T Axes : 067 029 036 degrees QTc Int : 455 ms Normal sinus rhythm Normal ECG When compared with ECG of 04-MAY-2022 13:47, No significant change was found Referred By: Shahida Graham Electronically Signed By:SIMONE UMANA MD
== END ==
LOC: HO.CARD 11:29
PROVIDERS: PCP Internal Medicine; Visit Provider Internal Medicine
DX: R07.9 Chest pain, unspecified (principal)
CPT/HCPCS: 93005

== ENCOUNTER → 2023-06-13 11:39 | Outpatient (BNV) | payer MEDICARE, MEDICAID, SELFPAY | PROVIDERS: PCP Internal Medicine; Visit Provider Internal Medicine Cardiovascular Disease | DX: R07.9 Chest pain, unspecified (principal) | CPT/HCPCS: 93010 ==

== ENCOUNTER 2023-06-21 08:16 | Outpatient (AMB) | payer MEDICARE, MEDICAID, SELFPAY ==
--- OUTSIDE RECORDS SUMMARY | 2023-06-21 08:17 | XMS_ITS | Continuity of Care Document ---
Author Organization [facility] ter Address [address] [place] [id number]- Care Team Providers Care Tire Installer Name Role Phone Po Driss MORTON Primary Care Physician [place] [facility] [place] 07/[place]/22 - 07/22/[address] [address] Discharge Disposition: A-D/C Home Attending Physician: Dorothy FREEMAN MD (Surgeon), Fernando Admitting Physician: Dorothy FREEMAN MD (Surgeon), Fernando Referring Physician: Dorothy FREEMAN MD (Surgeon), Fernando Allergies, Adverse Reactions, Alerts Substance Reaction Severity Status amoxicillin face and body swelled Active Medications acetaminophen 160 mg/5 mL oral suspension 20 mL = 640 mg, By Mouth, Every 6 hours, for 3 days, # 240 mL, 0 Refills, Acute 07/25/22 11:20:00 EDT, 07/22/22 11:20:00 EDT, Suspension, [facility], Partial fill upon patient request if the prescription is for a schedule II opioid drug.... Start Date: 07/22/22 Stop Date: 07/25/22 Status: Ordered Bariatric Multivitamins with 45 mg Iron oral capsule 1 capsule, By Mouth, Daily in AM, # 90 capsule, 0 Refills, Maintenance, 07/16/22 16:49:00 EDT, Capsule, Partial fill upon patient request if the prescription is for a schedule II opioid drug. Start Date: 07/16/22 Status: Ordered Latuda = 60 mg, By Mouth, Daily in AM, 0 Refills, Maintenance, 07/16/22 16:47:00 EDT, Partial fill upon patient request if the prescription is for a schedule II opioid drug. Start Date: 07/16/22 Status: Ordered levothyroxine 0.075 mg oral tablet = 0.075 mcg, By Mouth, Daily in AM, 0 Refills, Maintenance, 05/10/22 7:00:00 EDT, Partial fill uponpatient request if the prescription is for a schedule II opioid drug. Start Date: 05/10/22 Status: Ordered lithium 300 mg oral capsule 2 capsule = 600 mg, By Mouth, Daily in AM, 0 Refills, Maintenance, 05/10/22 7:00:00 EDT, Capsule, Partial fill upon patient request if the prescription is for a schedule II opioid drug. Start Date: 05/10/22 Status: Ordered OxyCODONE 5mg/5mL Liquid 5 mg, Solution, By Mouth, Every 4 hours, PRN for Pain , Severe, Routine, 07/22/22 11:07:00 EDT Start Date: 07/22/22 Stop Date: 07/22/22 Status: Discontinued Pantoprazole = 40 mg, By Mouth, Daily in AM, 0 Refills, Maintenance, 07/16/22 16:50:00 EDT Start Date: 07/16/22 Status: Ordered Soma 350 mg oral tablet 1 tablet = 350 mg, By Mouth, 4 times a day, PRN Spasm, 0 Refills, Maintenance, 02/07/13 8:23:45 EST Start Date: 02/07/13 Status: Ordered Vitamin D3 2000 intl units oral tablet 1 tablet = 2,000 International_Units, By Mouth, Daily in AM, 0 Refills, Maintenance, 02/07/13 8:24:15 EST Start Date: 02/07/13 Status: Ordered Problem List Condition Confirmation Course Effective Dates Status Health St atus Informant Severe obesity Confirmed Active Vital Signs Most recent to oldest [Reference Range]: 1 2 3 Height 175 cm (07/22/22 8:30 AM) 175 cm (07/16/22 5:07 PM) Weight 133 kg (07/22/22 8:30 AM) 133 kg (07/16/22 5:07 PM) Oxygen Saturation [94-100 %] 97 % (07/22/22 1:45 PM) 96 % (07/22/22 12:45 PM) 98 % (07/22/22 12:30 PM) Pulse Rate [55-90 bpm] 85 bpm (07/22/22 8:30 AM) Body Mass Index [18.5-24.99 kg/m2] 43.43 kg/m2 *>HHI* (07/22/22 8:30 AM) 43.43 kg/m2 *>HHI* (07/16/22 5:07 PM) Blood Pressure [90-138/55-84 mm Hg] 119/98mm Hg (07/22/22 1:45 PM) 147/89mm Hg *H* (07/22/22 12:45 PM) 134/79mm Hg (07/22/22 12:30 PM) Respiratory Rate [16-30 br/min] 21 br/min (07/22/22 12:45 PM) 18 br/min (07/22/22 12:36 PM) 15 br/min *L* (07/22/22 12:15 PM) Temperature [96.8-100.4 DegF] 98.4 DegF (07/22/22 1:45 PM) 98.4 DegF (07/22/22 12:45 PM) 97.0 DegF (07/22/22 10:45 AM) Liters per Minute 2 L/min (07/22/22 12:45 PM) 2 L/min (07/22/22 12:30 PM) 2 L/min (07/22/22 12:15 PM) Mode of Delivery (Oxygen) Nasal cannula (07/22/22 12:45 PM) Nasal cannula (07/22/22 12:30 PM) Nasal cannula (07/22/22 12:15 PM) Blood pressure sites Arm, left (07/22/22 10:45 AM) Temperature Route Temporal (07/22/22 1:45 PM) Temporal (07/22/22 12:45 PM) Temporal (07/22/22 10:45 AM) Dry Weight 132.3 kg (07/22/22 8:30 AM) 133 kg (07/16/22 5:07 PM) Weight Obtained Via Patient/family state d (07/16/22 5:07 PM) Dry Weight Obtained Via Standing scale (07/22/22 8:30 AM) Patient/family stated (07/16/22 5:07 PM) Note * Ishan MONTES, Sandy: PERFORM Event Display: Patient Education/Instruction Authored Date: [id number] Surgery Adult Discharge Instructions [id number] [place] [address] Name: GERHARD SHEA : 1960?? Visit: 07/22/2022 07:06?? Current Date: 07/22/2022 13:36 ?? Account: [id number]?? Surgery Discharge Instructions We would like to thank you for allowing us to assist you with your healthcare needs. The following includes patient education materials and information regarding your injury/illness. Our entire staffstrives to provide an excellent experience for our patients and their families. PLEASE ENSURE YOU FOLLOW-UP PER THE INSTRUCTIONS BELOW! ?? YOUR OPINION IS IMPORTANT TO US! Please complete the survey you may receive by mail or email. Your feedback will be used to make improvements to the healthcare experiences of our patients and their families. Surveys are administered by [employer] ?? If further treatment with your primary care physician or another doctor is recommended, it is important for you to keep the appointment. Call your primary care physician or return to the Emergency Department immediately if your condition worsens, fails to improve, or new symptoms develop. If you need to find a doctor, you can call [facility] for a referral at [phone] or toll free at [phone] or log in to [email or web address].. ?? You can view and manage your care through the patient portal or by using a health care luz of your choosing. [employer] is a website that allows you to securely view your medical information including your hospital discharge summary, office visit summaries, medications and follow-up visits. You can also request appointments, renew medications, and request access to your medical information using a health care luz of your choosing, or just ask a question. You are entitled to know the individuals who participated in your treatment. This information is available within your medical record and will be provided upon your request. You can enroll at [email or web address] or register d uring your next office visit. You have been discharged from [facility], Patient Care Unit: PANU??. If you have any questions regarding these instructions after you leave, please call us and we will be happy to assist you. [facility] Your Care Team Attending Physician Dorothy FREEMAN MD (Surgeon)Fernando?? Consulting Providers Patricia MORTON, Vanita Velasquez?? Discharging Providers Durga MORTON, Althea Rosado Reason for Admission [facility] Primary Care Provider Driss Santiago MD? Advance Directive Health Care Proxy on File No What to do next Instructions From Your Doctor Diet Instructions: - 2 weeks of liquids, including protein shakes - 2 weeks of full liquids - 2 weeks of pureed diet ?? Orders?? Daystay Protocol, ??When Unit Discharge Criteria Met, ??07/22/22 10:37:00 EDT Conscious Sedation Protocol, ??07/22/22 10:37:00 EDT?? You Need to Schedule the Following Appointments Follow Up with??Driss Santiago MD When:??In 0 days Where: [address] [place] [address]- Business (1) Follow Up with??Dorothy FREEMAN MD (Surgeon)Fernnado When:??Within 1 week Where: [address] [place] [address]- Discharge Medications GERHARD SHEA :1960 Visit Date:07/22/2022 Medications: Please continue your medications until treatment is completed or stopped by your provider. You may resume your daily prescription medications. Discuss any questions related to medications with your provider. What How Much When Instructions Next Dose New Acetaminophen (acetaminophen 160 mg/ 5 mL oral suspension) 20 Milliliter Oral Every 6 hours Duration: 3 Days Pickup at [facility] 3 anytime Unchanged Carisoprodol (Soma 350 mg oral tablet) 1 tab(s) Oral 4 times a day as needed for Spasm as directed Unchanged Cholecalciferol (Vitamin D3 2000 intl units oral tablet) 1 tab(s) Oral Daily in the morning as directed Unchanged Levothyroxine (levothyroxine 0.075 mg oral tablet) 0.075 Microgram Oral Daily in the morning as directed Unchanged [place] (lithium 300 mg oral capsule) 2 capsule Oral Daily in the morning as directed Unchanged lurasidone (Latuda) 60 Milligram Oral Daily in the morning as directed Unchanged Multivitamin With Minerals (Bariatric Multivitamins with 45 mg Iron oral capsule) 1 capsule Oral Daily in the morning as directed Unchanged Pantoprazole 40 Milligram Oral Daily in the morning as directed Pharmacy Information [facility]: [address], [place] [id number] [phone] Had oxycodone at hospital at: about 1PM Allergies (NKA means No Known Allergies) amoxicillin??(face and body swelled) Education Materials Below is the list of Educational Leaflet Providered with your Discharge Instructions. Surgery Medical Daystay Surgical Overnight Discharge Instructions?? Soft Diet?? Full Liquid Diet?? After Gastric Bypass: Nutrition Guidelines?? Valuables and Belongings I fully understand and agree that [facility] accepts no responsibility for all my personal property including clothing, toilet articles, radios, jewelry, dentures, hearing aids, rings, money, or any other property that is in my possession or is brought to me after admission. I understand certain valuables may be placed in a hospital safe for a short period of time. I understand that the hospital is not liable for loss or damage due to accident, fire, or other natural occurrence while said property is in the safe. I accept full responsibility for any personal property that I keep with me, and will not hold the hospital responsible in case of loss or disappearance. I acknowledge that i have been encouraged to send valuables and belongings home. ?? Review of Valuable and Belonging List: With patient Disposition of Belongings: Valuables Locked Possessions released to: to PACU Date for Pt to Sign Valuables/Belongings: 07/22/22 08:30:00 ?? Valuables & Belongings ?? Clothes Electronic devices Jewelry Monetary Items Personal devices Miscellaneous Medications (Valuables) Valuables at Bedside Shirt, Shoes, Undergarments Cell phone ? Glasses ? Valuables Sent Home ? Valuables Sent to Security ? Other Discharge Information ? Pulmonary Rehab Status?? Pulmonary Rehab Discharge Status?? Respiratory Rate: 21 br/min ? Common Emergency Awareness Tips IS IT A STROKE? Act FAST and Check for these signs: FACE Does the face look uneven? ARM Does one arm drift down? SPEECH Does their speech sound strange? TIME Call at any sign of stroke ?? Heart Attack Signs Chest discomfort: Most heart attacks involve discomfort in the center of the chest and lasts more than a few minutes, or goes away and comes back. It can feel like uncomfortable pressure, squeezing, fullness or pain. Discomfort in upper body: Symptoms can include pain or discomfort in one or both arms, back, neck, jaw or stomach. Shortness of breath: With or without discomfort. Other signs: Breaking out in a cold sweat, nausea, or lightheaded. Remember, MINUTES DO MATTER. If you experience any of these heart attack warning signs, call to get immediate medical attention! ?? Smoking can increase your chances of developing chronic health problems and can cause harmful effects to other family members in your house. If you smoke, you are strongly encouraged to quit. Please call [facility] at [phone] or [phone] ([phone]) or log in to [email or web address] for referrals to smoking cessation programs. ?? The National Suicide Prevention Hotline is available 13/09 if you or someone you know needs to find a reason to keep living. By calling 6-036-108-Marriage.com (9341) you'll be connected to a skilled, trained counselor at a crisis center in your area. SURGERY DISCHARGE INSTRUCTIONS SIGNATURE PAGE GERHARD SHEA Location:[facility] Registration Date and Time:07/22/2022 07:06 EDT Primary Care Physician: Driss Santiago MD, Attending Physician: Dorothy FREEMAN MD (Surgeon)Fernando, I GERHARD SHEA, have received the above patient education materials/instructions and have verbalized understanding. If ambulance or transport services are being used I further acknowledge being given a choice of service. ?? If you need to contact me, please call me at this number: . Patient/Nuclear Physician Name: Patient/Nuclear Physician Signature: Relationship to Patient: Witness Name/Signature: Date: * Sandy Olmstead RN: PERFORM, SIGN, VERIFY Event Display: Patient Education Handout Authored Date: * Sandy Olmstead RN: PERFORM Event Display: Patient Education Leaflets Authored Date: [id number] Surgery Medical Daystay Surgical Overnight Discharge Instructions ?? 295 Medical Daystay/Surgical Overnight Discharge Instructions ? Since your coordination and judgment may be altered by medication and/or anesthesia, a responsible adult must drive you home from the hospital. ? If you have received medication for pain or sedation while under our care, you should not drive, operate machinery, drink alcohol, or sign any legal documents for 24 hours.?? You should have someone with you at home tonight. ? Remain at home the day of discharge.?? You may be up and about unless otherwise instructed by your physician. ? You may resume your daily prescription medication schedule.?? Any depressant medication should be avoided for 24 hours unless otherwise instructed by your surgeon or anesthesiologist. ? Call your physician for a follow-up appointment.? If you experience unusual or severe pain not relied by your pain medication, excessive bleedingor drainage, persistent nausea and vomiting, excessive swelling or redness, foul odor from incisionsite or fever over 100.6F, you need to call your physician. ? A follow-up phone call by a nurse will be made the day after your procedure.?? If you have stayed with us over night, you will not be receiving a follow-up phone call. ? Nausea and vomiting are a common side effect of prescription pain medication.?? We recommend that pills are not taken on an empty stomach.?? While taking any prescription pain medication you should not drive or drink alcohol. ?1. Please follow up with Dr De La Cruz in 1 week 2. Please follow clear liquid diet for first 2 weeks This information has been modified by your health care provider with permission from the publisher. ?? * Durga MORTON, Althea Rosado: PERFORM Event Display: Patient Education Leaflets Authored Date: [id number] Soft Diet ?? [id number] Soft Diet Your healthcare provider has prescribed a soft diet. This means eating foods that are soft, low in fiber, and easy to digest. This diet is for people with digestive problems. This should not be confused with a soft diet that is prescribed for people with issues chewing and swallowing. A soft diet provides foods that are easy to chew and swallow. It will reduce or prevent stomach pain or discomfort. Foods should be bite-sized and very soft or moist. Follow your healthcare provider???s specific instructions about what foods and drinks you may have. The general guidelines below can help you get started on this diet. Beverages OK: Milk, tea, coffee, fruit juices, carbonated beverages, nutrition shakes, and drinks (Note: Thinliquids may be hard to swallow. They may need to be thickened.) Don't have: All are OK, unless they need to be thickened ?? Breads and crackers OK: Refined white, wheat, or seedless rye bread; unique or soda crackers that have been moistened; plain rolls or bagels; very soft tortillas Don't have: Whole-grain breads, rolls, or bagels with nuts, raisins, or seeds; crackers, croutons, taco shells ?? Cereals and grains OK: Cooked cereals, plain dry cereals that have been moistened, plain macaroni, spaghetti, noodles,rice Don't have: Whole-grain cereals and granola, or cereals containing bran, raisins, seeds or nuts; coconut; brown or wild rice ?? Desserts and sweets OK: Moist cake; soft fruit pie with bottom crust only; soft cookies moistened in milk or other liquid; gelatin, custard, pudding, plain ice cream, plain sherbet, sugar, honey, clear jelly Don't have: Pastries, desserts, and??ice cream that have nuts, coconut, seeds, or dried fruit; popcorn; chips of any kind, including potato chips and tortilla chips; jam, marmalade ?? Eggs and cheese OK: Poached, soft boiled, or scrambled eggs; cottage cheese, ricotta cheese, cream cheese, cheese sauces, or cheese melted in other dishes Don't have: [place] fried eggs, cheese slices and cubes ?? Fruits OK: Avocado, banana, baked peeled apple, applesauce, peeled ripe peaches or pears, canned fruit (apricots, cherries, peaches, pears), melons Don't have: Raw apple, dried fruits, coconut, portia, pineapple, grapes, fruit catherine, fruit snacks ?? Meat and fish OK: All fresh meat, poultry, or fish that is cooked??until tender Don't have: Meat, fish, or poultry that is fried; tough or stringy meat, including guo, sausage, bratwurst, jerky, corned beef ?? Other protein foods OK: Tofu, baked beans, Don't have: Deep-fried tofu; crunchy peanut or other nut or seed butters; nuts or seeds that are whole or chopped ?? Soups OK: All soups, but they may need to be thickened. Thin liquid may be too hard to swallow. Don't have: Soups made with stringy meat pieces or chunky vegetables ?? Vegetables OK: Peeled and well-cooked potatoes or sweet potatoes; fresh, cooked, canned, or frozen vegetables without seeds, skin, or coarse fiber Don't have: Raw vegetables, deep-fried vegetables (such as tempura), and corn ?? Last Reviewed Date: 2021 ?? [employer]. All rights reserved. This information is not intended as a substitute for professional medical care. Always follow your healthcare professional's instructions. ?? * Durga MORTON, Althea Rosado: PERFORM Event Display: Patient Education Leaflets Authored Date: [id number] Full Liquid Diet ?? [id number] Full Liquid Diet A full liquid diet is a middle step between a clear liquid diet and eating solid foods. A clear liquid diet allows only liquids you can see through. A full liquid diet allows thicker liquid foods, aslisted below. It can be anything that is liquid at room temperature.??The full liquid diet may be used before or after surgery. Or it may be used if you have a digestive illness. It's also used before some medical tests. It's easy to digest and leaves little food in the stomach and intestines. A full liquid diet meets calorie and protein needs for your body with liquids only. If it's to be used for more than 5 days, your healthcare provider or dietitian may also order high-protein, high-calorie liquid supplements. These will give you extra vitamins and minerals. You may include the itemsbelow on a full liquid diet. Adults Adults should drink a total of 2 to 3 quarts of liquid per day. It may be easier to drink small frequent servings rather than a few large ones. People with severe kidney or heart disease may need to limit the amount of fluid they take in. Check with your provider. ??? Cereals and soups. Creamy hot breakfast cereals (wheat or rice) thinned with milk, pureed soups (including pureed meats, bland vegetables, and white potatoes), tomato puree. ??? Desserts.??Gelatin, whipped topping, custard-style yogurt, pudding, custard, plain ice cream, sherbet, sorbet, frozen fruit juice bars. ??? Drinks. Coffee, tea, cream, milk, milkshakes, fruit and vegetable juices, sodas, mineral water (plain or flavored ), liquid gelatin, electrolyte replacement sports drinks. ??? Other items. Salt, mild-flavored seasonings, chocolate flavoring, gravy, margarine, sugar, syrup, jelly, honey, hard candy (to suck on). ?? Children Follow the healthcare provider???s instructions. Young children who are eating solid foods may be able to have the items listed above without problems. Be sure to follow these safety measures: ??? Don't give hard candies to young children. The candies may cause choking. ??? Children under 1 year old. Don't give cow's milk or honey. It may cause illness. ??? Children under 2 years old. Ask your child???s provider if you should supplement your child???s diet with oral rehydration solutions, whichhave electrolytes. You can buy these drinks at pharmacies and grocery stores. You don???t need a prescription. ??? Children over 1 year old.??Limit milk to 2 or 3 cups per day. Too much milk can makeyour child less hungry for other foods. ?? Last Reviewed Date: 2021 ?? [employer]. All rights reserved. This information is not intended as a substitute for professional medical care. Always follow your healthcare professional's instructions. ?? Patient Care team information Care Team Personnel Name: Driss Santiago MD Position: Reference Physician Member Role: PCP Address: Address: [address] [place] [address]- Care Team Related Persons Name: DARIANA SHEA Address: [address] [place] [address] Name: ARTUR LOGAN Address: home [address] [place] [address]
--- OUTSIDE RECORDS SUMMARY | 2023-06-21 08:17 | XMS_ITS | Patient Health Record ---
Author Organization [facility] Address [address] [place] [address] Care Team Providers Care Dog Food Shredder Operator Name Role Phone Driss Santiago Primary Care Provider Jonatan Goncalves Unavailable [phone] ALLERGIES Allergen (clinical drug ingredient) Drug/Non Drug Allergy documented on EMR Reaction Allergy Type Onset Date Status amoxicillin Amoxicillin severe reaction Drug Allergy Active REASON FOR REFERRAL No Information MEDICATIONS Medication SIG (Take, Route, Fr equency, Duration) Notes Start Date End Date Status [place] Active Naproxen as needed Active Vitamin B 12 Active diazePAM 5 MG (Schedule IV Drug) Oral for 30 Active Multi Complete Activ e Synthroid Active LORazepam 1 MG (Schedule IV Drug) Oral for 30 Active SOCIAL HISTORY Tobacco Use: Social History Observation Description Date Details (start date - stop date) Never Smoker NA - NA Sex Assigned At : Social History Observation Description Sex Assigned At Unknown Tobacco Use/Smoking Question Answer Notes Are you a: nonsmoker Additional Findings: Tobacco Non-User Aggressive non-smoker Alcohol Screen Question Answer Notes Did you have a drink containing alcohol in the p ast year? No Points 0 Interpretation Negative Tobacco use other than smoking: Question Answer Notes Are you an other tobacco user? No PLAN OF TREATMENT Pending Test Test Name Order Date X ray : Foot, left 3V 10/31/2019 X ray : Foot, right 3V 10/31/2019 [id number] TENDON SHEATH/LIGAMENT 1 04/03/2019 Insurance Providers Payer Name Payer Address Payer Phone Subscriber Number Group Number Insured Name Patient Relationship to Insured Coverage Start Date Coverage End Date [facility] [address] [place] [address] [id number] DARIANA SHEA Spouse - patient is the spouse of the insured MEDICAL (GENERAL) HISTORY Medical History History ICD Code Anemia Anxiety Back,Hip,and Knee pain Depression Numbness Psychiatric disorder raynauds disease thyroid Measles Mumps Chicken pox Surgical History Surgery Date(Month/Year) lumbar laminectomy 1986 section 1986 gastric bypass 2002 gall bladder 2016 T+A 1977
--- OUTSIDE RECORDS SUMMARY | 2023-06-21 08:17 | XMS_ITS | Continuity of Care Document ---
Author Organization [facility] Address [address] [place] [address]- Care Team Providers Care Medical Parasitologist Name Role Phone Driss Santiago MD Primary Care Physician Encounter [facility] [place] Date(s): 02/09/22 - 06/09/22 [facility] Gastroenterology [address] [place] [address]- Attending Physician: Sang Abad MD Admitting Physician: Sang Abad MD Referring Physician: Driss Santiago MD Allergies, Adverse Reactions, Alerts Substance Reaction Severity Status amoxicillin Active Medications Latuda 40 mg oral tablet 1 tablet = 40 mg, By Mouth, Daily, # 30 tablet, 0 Refills, Maintenance, 05/10/22 7:00:00 EDT, Tablet, Partial fill upon patient request if the prescription is for a schedule II opioid drug. Start Date: 05/10/22 Status: Ordered levothyroxine 0.075 mg oral tablet = 0.075 mcg, By Mouth, Daily, 0 Refills, Maintenance, 05/10/22 7:00:00 EDT, Partial fill upon patient request if the prescription is for a schedule II opioid drug. Start Date: 05/10/22 Status: Ordered lithium 300 mg oral capsule 2 capsule = 600 mg, By Mouth, Daily, 0 Refills, Maintenance, 05/10/22 7:00:00 EDT, Capsule, Partialfill upon patient request if the prescription is for a schedule II opioid drug. Start Date: 05/10/22 Status: Ordered Nature-Throid 32.5 mg oral tablet 1 tablet = 32.5 mg, By Mouth, 2 times a day, 0 Refills, Maintenance Start Date: 02/07/13 Status: Ordered PreserVision oral tablet 1 tablet, By Mouth, 2 times a day, 0 Refills, Maintenance Start Date: 02/07/13 Status: Ordered Soma 350 mg oral tablet 1 tablet = 350 mg, By Mouth, 4 times a day, 0 Refills, Maintenance Start Date: 02/07/13 Status: Ordered Vitamin D3 2000 intl units oral tablet 1 tablet = 2,000 International_Units, By Mouth, Daily, 0 Refills, Maintenance Start Date: 02/07/13 Status: Ordered Problem List Condition Confirmation Course Effective Dates Status Health St atus Informant Severe obesity Confirmed Active Patient Care team information Care Team Personnel Name: Driss Santiago MD Position: Reference Physician Member Role: PCP Address: Address: [address] [place] [address]- Care Team Related Persons Name: DARIANA SHEA Address: home [address] [place] [address] Name: ARTUR LOGAN Address: home [address] [place] [address]
--- OUTSIDE RECORDS SUMMARY | 2023-06-21 08:17 | XMS_ITS | Continuity of Care Document ---
Author Organization [facility] Address [address] [facility] [place] [address]- Care Team Providers Care Comptometrist Name Role Phone Ivania JACOBSON, Rose Rosado Primary Care Physician Encounter 08/06/21 - 08/13/21 [facility] [address], [address] [place] [address]- Attending Physician: Rose Redd NP Admitting Physician: Rose Redd NP Referring Physician: Rose Redd NP Allergies, Adverse Reactions, Alerts Substance Reaction Severity Status amoxicillin Active Medications Nature-Throid 32.5 mg oral tablet 1 tablet = 32.5 mg, By Mouth, 2 times a day, 0 Refills, Maintenance Start Date: 02/07/13 Status: Ordered oxycodone 15 mg oral tablet 1 tablet = 15 mg, By Mouth, Every 4 hours, 0 Refills, Maintenance Start Date: 02/07/13 Status: [...]
--- OUTSIDE RECORDS SUMMARY | 2023-06-21 08:17 | XMS_ITS | Continuity of Care Document ---
Author Organization [facility] Address [address] [facility] [address] [place] [address]- Care Team Providers Care Low Pressure Kettle Operator Name Role Phone Po Driss MORTON Primary Care Physician Encounter 11/18/22 - 11/25/22 [facility] [address] [facility], [address] [place] [address]- Attending Physician: Rose Redd NP Admitting Physician: Rose Redd NP Referring Physician: Rose Redd NP Allergies, Adverse Reactions, Alerts Substance Reaction Severity Status amoxicillin face and body swelled Active Medications Bariatric Multivitamins with 45 mg Iron oral [...] opioid drug. Start Date: 05/10/22 Status: Ordered Pantoprazole = 40 mg, By Mouth, Daily [...] St atus Informant Severe obesity Confirmed Active Results Radiology Reports * Exam Date Time Procedure Performing Provider Status 11/18/22 10:55 AM MM Digital Mammo Screening Jelani Valentin genie; Auth (Verified) Notes: (MM Digital Mammo Screening) Reason For Exam: screening RESULT: MM Digital Mammo Screening PROCEDURE: MM Digital Mammo Screening INDICATION: Screening for breast cancer. COMPARISON: Multiple priors, most recent 08/06/2021 TECHNIQUE: Full-field digital CC and MLO 3D tomosynthesis images of both breasts were acquired. Computer-aided detection (CAD) was utilized in the interpretation of this study. DENSITY: The breast tissue contains scattered areas of fibroglandular density. FINDINGS: No suspicious masses, suspicious microcalcifications, or areas of architectural distortion are seen in either breast to suggest malignancy. IMPRESSION: No mammographic evidence of malignancy. RECOMMENDATION: Annual mammographic screening BI-RADS: 1 (Negative) Lay letter mailed to patient WSN: [id number] Ordering Physician: Rose Redd Dictated By: Jonathan Garcia MD Dictated Date/Time: 11/18/22 1:27 pm Reviewed By: Jonathan Garcia MD Signed By: Jonathan Garcia MD Signed Date/Time: 11/18/22 1:27 pm Transcribed By: YOGESH Park Worker Supervisor Date/Time: 11/18/22 1:24 pm Birads: Patient Care team information Care Team Personnel Name: Driss Santiago MD Position: Reference Physician Member Role: PCP Address: Address: [address] [place] [id number] Care Team Related Persons Name: MONSE, DARIANA Address: [address] [place] [address] Name: ARTUR LOGAN Address: home [address] [place] [address]
--- OUTSIDE RECORDS SUMMARY | 2023-06-21 08:17 | XMS_ITS | Continuity of Care Document ---
Author Organization [facility] Address [address] [place] [address]- Care Team Providers Care Sheep Clipper Name Role Phone Po Driss MORTON Primary Care Physician Encounter [facility] [place] Date(s): 05/10/22 - 05/10/[address] [address] Discharge Disposition: A-D/C Home Attending Physician: Dorothy [...] oldest [Reference Range]: 1 2 3 Height 175.3 cm (05/10/22 9:26 AM) Weight 126 kg (05/10/22: AM) Oxygen Saturation [94-100 %] 100 % (05/10/22 10:30 AM) 100 % (05/10/22 10:15 AM) 100 % (05/10/22:26 AM) Pulse Rate [55-90 bpm] 68 bpm (05/10/22:26 AM) Body Mass Index [18.5-24.99 kg/m2] 41 kg/m2 *>HHI* (05/10/22 9:26 AM) Blood Pressure [90-138/55-84 mm Hg] 138/70mm Hg (05/10/22 10:30 AM) 141/71mm Hg *H* (05/10/22 10:15 AM) 146/80mm Hg *H* (05/10/22 9:26 AM) Respiratory Rate [16-30 br/min] 17 br/min (05/10/22 10:30 AM) 18 br/min (05/10/22 10:15 AM) 16 br/min (05/10/22 9:26 AM) Temperature [96.8-100.4 DegF] 97.9 DegF (05/10/22 9:26 AM) Mode of Delivery (Oxygen) Room air (05/10/22 10:30 AM) Room air (05/10/22 10:15 AM) Room air (05/10/22 9:26 AM) Blood pressure sites Arm, left (05/10/22 10:30 AM) Arm, left (05/10/22 10:15 AM) Arm, left (05/10/22 9:26 AM) Temperature Route Temporal (05/10/22 9:26 AM) Weight Obtained Via Patient/family state d (05/10/22 9:26 AM) Note * Anika Garcia RN: PERFORM Event Display: Discharge/Transfer Note Hospital Authored Date: Nursing Discharge Note Entered On: 05/10/2022 10:22 EDT Performed On: 05/10/2022 10:22 EDT by Anika Garcia RN Nursing Discharge Note 2 Discharge Time : 05/10/2022 10:40 EDT Discharge Level of Care at Discharge : Home/Custodial/Foster Care Anika Garcia RN - 05/10/2022 10:42 EDT Patient Left Unit Via : Ambulatory Patient Accompanied Off Unit with : Responsible adult DC Instructions Provided & Signed by Pt : Yes Patient Understands D/C Instructions : Yes Patient Instructions Discharge Signed : Yes Did Pt have Specialty Bed or Wound Vac : No Anika Garcia RN - 05/10/2022 10:22 EDT * Anika Garcia RN: PERFORM Event Display: Patient Education/Instruction Authored Date: Inpatient Adult Discharge Instructions [address] [address] Name: GERHARD SHEA : 1960 Visit: 05/10/2022 08:45:00 Current Date: 05/10/2022 10:22 Account: [id number] Inpatient Adult Discharge Instructions We would like to thank [...] and their families. Surveys are administered by [employer] ?? If further treatment with your primary care physician or another doctor is recommended, it is important for you to keep the appointment. Call your primary care physician or return to the Emergency Department immediately if your condition worsens, fails to improve, or new symptoms develop. If you need to find a doctor, you can call [facility] [employer] for a referral at [phone] or toll free at [phone] or log in to [email or web address].. ?? You can view and manage your care through the patient portal or by using a health care luz of your choosing. [employer] is a website that allows you to securely view your medical information including your hospital discharge summary, office visit summaries, medications and follow-up visits. You can also request appointments, renew medications, and request access to your medical information using a health care luz of your choosing, or just ask a question. You can enroll at [email or web address] or register during your next office visit. You have been discharged from [facility], Patient Care Unit: ENDO. If you have any questions regarding these instructions after you leave, please call us and we will be happy to assist you. [facility] Your Care Team Attending Physician Dorothy FREEMAN MD (Surgeon), Fernando Discharging Providers Dorothy FREEMAN MD (Surgeon), Fernando Reason for Admission WEIGHT GAIN UPPER ENDOSCOPY ENDO CS Tests Performed Below is a partial list of the tests performed during your hospitalization. You may have had other tests and procedures not included in this list. Please discuss all test results with your provider. Primary Care Provider Driss Santiago MD Advance Directive Health Care Proxy on File No Patient refuses to discuss Discharge Vitals Temperature: 97.9 DegF Height: 175.3 cm Pulse Rate: 68 bpm Weight: 126 kg Respiratory Rate: 18 br/min Body Mass Index:??41 kg/m2??Critical Systolic Blood Pressure:??141 mm Hg??High Body surface area: 2.48 Diastolic Blood Pressure: 71 mm Hg ?? Oxygen Saturation: 100 % ?? Studies Pending All tests and labs ordered during this hospital stay have been completed unless listed below. Please discuss all pending results with your provider listed above in these instructions. ?? No incomplete studies found What to do next Instructions From Your Doctor Discharge Orders You Need to Schedule the Following Appointments Follow Up with??As Needed When?? Discharge Medications GERHARD SHEA :1960 Visit Date:05/10/2022 Medications: Please continue your medications until treatment is completed or stopped by your provider. Medications not listed below should be discontinued. Discuss any questions related to medications with your provider. What How Much When Instructions Next Dose Unchanged Carisoprodol (Soma 350 mg oral tablet) 1 tab(s) Oral 4 times a day Unchanged Cholecalciferol (Vitamin D3 2000 intl units oral tablet) 1 tab(s) Oral Daily Unchanged Levothyroxine (levothyroxine 0.075 mg oral tablet) 0.075 Microgram Oral Daily Unchanged Haines (lithium 300 mg oral capsule) 2 capsule Oral Daily Unchanged lurasidone (Latuda 40 mg oral tablet) 1 tab(s) Oral Daily Unchanged Multivitamin With Minerals (PreserVision oral tablet) 1 tab(s) Oral Twice a day Unchanged Thyroid Desiccated (Nature-Throid 32.5 mg oral tablet) 1 tab(s) Oral Twice a day Test Results Below is a partial list of the most recent Laboratory test results done prior to this discharge. You may have had other tests and procedures not included in this list. Please discuss all test resultswith your provider. Allergies (NKA means No Known Allergies) amoxicillin Problems Active Problems??(2) depression?? Severe obesity?? Education Materials Below is the list of Educational Leaflet Providered with your Discharge Instructions. Surgery Medical Daystay Surgical Overnight Discharge Instructions?? Valuables and Belongings I fully understand and agree that [facility] accepts no responsibility for all my personal [...] to send valuables and belongings home. ?? Date for Pt to Sign Valuables/Belongings: 05/10/22 09:26:00 ?? Other Discharge Information ? Pulmonary Rehab Status?? Pulmonary Rehab Discharge Status?? Respiratory Rate: 18 br/min ? Common Emergency Awareness Tips IS [...] are strongly encouraged to quit. Please call [facility] [employer] at [phone] or [phone] ([phone]) or log in to [email or web address] for referrals to smoking cessation programs. ?? The National Suicide Prevention Hotline is available 13/09 if you or someone you know needs to find a reason to keep living. By calling 9-872-217-Nokter (2996) you'll be connected to a skilled, trained counselor at a crisis center in your area. INPATIENT DISCHARGE INSTRUCTIONS SIGNATURE PAGE GERHARD SHEA Location:[facility] Registration Date and Time:05/10/2022 08:45 EDT Primary Care Physician: Driss Santiago MD, I GERHARD SHEA, have received the above patient education materials/instructions and have verbalized understanding. If ambulance or transport services are being used I further acknowledge being given a choice of service. ?? If you need to contact me, please call me at this number: . Patient/Synthetic Chemist Name: Patient/Synthetic Chemist Signature: Relationship to Patient: Witness Name/Signature: Date: * Anika Garcia RN: PERFORM Event Display: Patient Education Leaflets Authored Date: Surgery Medical Daystay Surgical Overnight Discharge Instructions [...] you should not drive or drink alcohol. ? Patient Care team information Care Team Personnel Name: Driss Santiago MD Position: Reference Physician Member Role: PCP Address: Address: [address] [place] [address]- Care Team Related Persons Name: DARIANA SHEA Address: [address] [place] [address] Name: ARTUR LOGAN Address: [address] [place] [address]
--- OUTSIDE RECORDS SUMMARY | 2023-06-21 08:17 | XMS_ITS | Continuity of Care Document ---
Author Organization [facility] Gastroenter [facility] Address [address] [place] [address]- Care Team Providers Care Legal Internship Name Role Phone Po Driss MORTON Primary Care Physician [place] [facility] [place] Date[place]s): 05/10/22 - 06/09/22 [facility] G[facility]enter[facility] [address] [place] [address]- Attending Physician: Gume Alexander Admitting Physician: Gume Alexander Referring Physician: Gume Alexander Allergies, Adverse Reactions, Alerts Substance Reaction Severity [...] Reference Physician Member Role: PCP Address: Address: [address] [place] [address]- Care Team Related Persons Name: DARIANA SHEA Address: [address] [place] [address] Name: ARTUR LOGAN Address: [address] [place] [address]
--- OUTSIDE RECORDS SUMMARY | 2023-06-21 08:17 | XMS_ITS | Continuity of Care Document ---
Author Organization [facility] Gastroenter olog[facility] Address [address] [place] [address]- Care Team Providers Care Director Of Hospitality Name Role Phone Driss Santiago MD Primary Care Physician [phone] Encounter [facility] [place] Date(s): 12/08/21 - 01/07/22 [facility] [address] [place] [address]- Allergies, Adverse Reactions, Alerts Substance Reaction Severity [...] Refills, Maintenance Start Date: 02/07/13 Status: Ordered Patient Care team information Care Team Personnel Name: Driss Santiago MD Position: Reference Physician Member Role: PCP Address: Address: [address] [place] [address]- [place] Care Team Related Persons Name: DARIANA SHEA Address: home [address] [place] [id number] Name: ARTUR LOGAN Address: home [address] [place] [address]
--- NOTE | 2023-06-21 10:16 | MHC.OFFWIV ---
Intake Vital Signs 06/21/23 10:17 Height 5 ft 9 in Weight 266 lb BMI 39.3 BP 126/78 Blood Pressure Location Lt brachial Position Sitting Pulse 75 Pulse Source Pulse Oximeter Temp 97.6 F Temp Source Temporal Artery Scan Pulse Oximetry (%) 97 Oxygen Delivery Method Room Air Intake Visit Reasons: EP Sore throat, cough, sinus Intake Note: pt is here tday for sore throat cough sinus started tuesday Patient Tobacco Use Status: Never used Tobacco Allergies amoxicillin [Amoxicillin] Allergy (Severe, Verified 06/21/23 11:25) HIVES, swelling nickel Allergy (Mild, Verified 06/21/23 11:25) Unknown Medication List - Last Reconciled 06/21/23 by ISH Jj albuterol sulfate 90 mcg/actuation 2 puffs inhalation Q6H PRN azithromycin For 250 mg dose pack: take 500 mg today (day 1), then 250 mg for 4 days (days 2-5) PO carisoprodol (Soma) 350 mg PO TID PRN cholecalciferol (vitamin D3) 125 mcg PO DAILY diclofenac sodium 1% (Voltaren Arthritis Pain) 4 grams topical QID levothyroxine 88 mcg PO DAILY 90 days lithium carbonate 900 mg PO DAILY lurasidone (Latuda) 60 mg PO BEDTIME prednisone 20 mg PO BID semaglutide (weight loss) (Wegovy) 0.25 mg (0.5 mL) subcut QWEEK 28 days Do you need a note to return to daycare/school/sports/work: No HPI HPI Comments History of Present Illness Details Patient is a 62-year-old female in today for sick visit. Patient states for the past 2 days she has developed symptoms of sore throat, chest congestion, cough, runny nose. Patient states she has been expectorated yellow and green mucus and feels like symptoms have moved down into her chest with chest congestion. Patient denies fevers, denies chest pain, denies shortness of breath, denies nausea, vomiting, diarrhea PFSH Medical History Morbid obesity Polyarthralgia LLQ abdominal pain Chronic diarrhea Adult general medical exam Screening for diabetes mellitus Screening for colon cancer Screening for breast cancer Post-menopausal Depression Left hip pain Left shoulder pain Slurred speech Left lateral abdominal pain Urinary incontinence Osteomyelitis Weight gain Abdominal muscle strain Marginal ulcer Bipolar disorder Anemia ADHD PTSD (post-traumatic stress disorder) Back pain DDD (degenerative disc disease) SOB (shortness of breath) Upper back pain on left side Dizziness Hx of small bowel obstruction Right rotator cuff tear Iron deficiency anemia Obesity GERD (gastroesophageal reflux disease) Hypercholesterolemia Anxiety and depression Osteoarthritis Lumbar disc herniation Surgical History History of endoscopy History of esophagogastroduodenoscopy (EGD) Hx of colonoscopy History of adjustable gastric banding History of removal of laparoscopic gastric banding device Hx of section S/P panniculectomy Hx of laparoscopic gastric banding Hx of laminectomy Hx laparoscopic cholecystectomy History of Theo-en-Y gastric bypass Hx of tonsillectomy Family History Father HTN (hypertension) DM (diabetes mellitus) Bladder cancer Prostate cancer Hyperlipidemia Mother Thyroid nodule Brother No problems noted. Sister No problems noted. Son No problems noted. Daughter No problems noted. Social History Household Members: Spouse, Children and Other Household Members Other:: dog and cat Housing: House Do you presently have visiting nurse or other home services: No Alcohol intake: never Patient Tobacco Use Status: Never used Tobacco e-Cigarette/Vaping Use: Never Used Second Hand Smoke Exposure: No Substance Use Type: Opiates Advance Directives Date on File: 02/10/21 service: No Current occupational status: disabled Sexual orientation: Straight/Heterosexual Cognitive needs: No Hearing needs: No Vision needs: Yes Review of Systems Const All systems reviewed & are unremarkable except as noted in HPI and below Physical Exam Vital Signs: Last Vital Signs Temp 97.6 F 06/21/23 10:17 Pulse 75 06/21/23 10:17 BP 126/78 06/21/23 10:17 Pulse Ox 97 06/21/23 10:17 Oxygen Delivery Method Room Air 06/21/23 10:17 BMI result Body Mass Index 39.3 Const Other: Appearance: Alert.? Oriented X3.? No acute distress.? Head: Normocephalic, atraumatic Eyes: Pupils equal, round and reactive to light.? ENT: Pharynx normal.? Neck: Normal inspection.? Neck supple.? CVS: Normal heart rate and rhythm.? Pulses normal.? Respiratory: No respiratory distress.? +Rhonci. No wheeze. Neuro: Oriented X 3.? No motor deficit.? No sensory deficit. CN 2-12 intact Results AMB Rapid Strep AMB Rapid Strep Negative Last Edit by Raza Briseno MA on 06/21/23 10:29 Results Reviewed Results Reviewed: Laboratory Last Values Strep Scn [facility] Negative 06/21/23 10:28 Assessment & Plan Assessment & Plan (1) Sinusitis: Comment: Will give patient azithromycin, prednisone, albuterol inhaler. With chest congestion also obtained chest x-ray. Code(s): J32.9 - Chronic sinusitis, unspecified Qualifiers: Sinusitis location: unspecified location Chronicity: acute Recurrence: non-recurrent Qualified Code(s): J01.90 - Acute sinusitis, unspecified Plan: Take your medications as prescribed. If you were prescribed antibiotics today, it is important that you take your medication to their entirety, do not skip any doses, do not finish them early. Follow-up with your primary care provider this week. Return to the emergency department with new or worsening symptoms. Such as fevers, chills, chest pain, shortness of breath, nausea, vomiting, dizziness, headache, vision changes, lethargy In case of emergency call 911 Plan Follow-up with PCP Orders: Orders SARS-CoV2/FLU/RSV Today J06.9 - Acute upper respiratory infection, unspecified XR chest 2V Today J18.9 - Pneumonia, unspecified organism Medications: New albuterol sulfate 90 mcg/actuation 2 puffs inhalation Q6H PRN 8.5 grams 0RF shortness of breath or wheezing azithromycin For 250 mg dose pack: take 500 mg today (day 1), then 250 mg for 4 days (days 2-5) PO 6 tabs 0RF prednisone 20 mg PO BID 10 tabs 0RF Coding Level of Care Code Est Pt Level 3 (27545) Diagnoses Acute non-recurrent sinusitis, unspecified location J01.90 Sinusitis location: unspecified location Chronicity: acute Recurrence: non-recurrent Time Spent (min) 21
[2023-06-21 10:17] VITALS: BP 126/78; PULSE 75; TEMP 36.4; O2SAT 97; BMI 39.3
== END 2023-06-21 12:04 | disposition home or self-care (01) ==
PROVIDERS: PCP Internal Medicine; Visit Provider Nurse Practitioner Primary Care
DX: J01.90 Acute sinusitis, unspecified (principal)
CPT/HCPCS: 99213

== ENCOUNTER 2023-06-21 11:08 | Outpatient (REF) | payer MEDICARE, MEDICAID, SELFPAY ==
--- NOTE | ~2023-06-21 | XR_ITS ---
EXAMINATION: XR CHEST CLINICAL INFORMATION: Pneumonia COMPARISON: 04/27/2023 TECHNIQUE: 2 views of the chest were obtained. FINDINGS: Cardiomediastinal silhouette is normal. Lungs are clear. There is eventration of anterior portion of the right hemidiaphragm. No evidence of pneumonia or atelectasis and no pleural effusions seen. XR/XR chest 2V IMPRESSION: No active cardiopulmonary disease.
[2023-06-21 14:08] LABS: Influenza A PCR NEGATIVE (Negative); Influenza B PCR NEGATIVE (Negative); Resp Syncy Virus RNA Qual PCR NEGATIVE (Negative); SARS COV2 PCR INHOUSE NEGATIVE (Negative)
== END 2023-06-21 11:09 | disposition home or self-care (01) ==
LOC: HO.HMGCX 11:08
PROVIDERS: PCP Internal Medicine; Visit Provider Nurse Practitioner Primary Care
DX: J18.9 Pneumonia, unspecified organism (principal); J06.9 Acute upper respiratory infection, unspecified
CPT/HCPCS: 0241U; 71046

== ENCOUNTER 2023-07-01 08:32 | Outpatient (REF) | payer MEDICARE, MEDICAID, SELFPAY ==
[2023-07-01 10:03] LABS: Lithium 0.81 mmol/L (0.60-1.20)
[2023-07-01 10:28] LABS: Cholesterol 237 mg/dL (<200); HDL Cholesterol 60 mg/dL (>40); LDL Cholesterol Calculated 141 mg/dL (<100); Triglycerides 183 mg/dL (<150)
[2023-07-01 10:30] LABS: Thyroid Stimulating Hormone 1.79 uIU/mL (0.32-4.0)
== END 2023-07-01 08:33 | disposition home or self-care (01) ==
LOC: HO.LAB 08:32
PROVIDERS: Absent Provider Psychiatry & Neurology Psychiatry; PCP Internal Medicine; Visit Provider Internal Medicine
DX: E03.9 Hypothyroidism, unspecified (principal); E78.5 Hyperlipidemia, unspecified
CPT/HCPCS: 36415; 80061; 80178; 84443

== ENCOUNTER 2023-07-04 13:00 | Outpatient (REF) | payer MEDICARE, MEDICAID, SELFPAY ==
[2023-07-04 14:35] LABS: Thyroid Stimulating Hormone 1.84 uIU/mL (0.32-4.0)
[2023-07-05 11:29] LABS: Anion Gap 12 (12-20)
[2023-07-05 11:34] LABS: Alanine Aminotransferase 12 U/L (0-31); Albumin Level 3.9 g/dL (3.5-5.0); Alkaline Phosphatase 78 U/L (39-117); Aspartate Amino Transferase 15 U/L (5-31); Bilirubin Total 0.5 mg/dL (0.0-1.0); Blood Urea Nitrogen 11 mg/dL (9-16); Calcium 9.3 mg/dL (8.4-10.2); Carbon Dioxide 23 mmol/L (22-29); Chloride 108 mmol/L (96-108); Estimated Glomerular Filt Rate > 60; Glucose Random 70 mg/dL (60-115); Potassium 4.4 mmol/L (3.3-5.1); Sodium 139 mmol/L (135-145); Total Protein 6.3 g/dL (6.5-8.0)
[2023-07-05 11:51] LABS: Free T4 (Free Thyroxine) 0.76 ng/dL (0.71-1.85); T4 Thyroxine 5.9 ug/dL (4.5-12.0)
== END 2023-07-04 13:01 | disposition home or self-care (01) ==
LOC: HO.LAB 13:00
PROVIDERS: PCP Internal Medicine; Visit Provider Psychiatry & Neurology Psychiatry
DX: E03.9 Hypothyroidism, unspecified (principal); E07.81 Sick-euthyroid syndrome
CPT/HCPCS: 36415; 80053; 84436; 84439; 84443

== ENCOUNTER 2023-08-20 09:15 | Outpatient (AMB) | payer MEDICARE, MEDICAID, SELFPAY ==
--- OUTSIDE RECORDS SUMMARY | 2023-08-20 09:19 | XMS_ITS | Patient Health Record ---
[facility] Address [address] [place] [address] Care Team Providers Care Catia Designer Name Role Phone Driss Santiago Primary Care Provider Jonatan Goncalves Unavailable [phone] ALLERGIES Allergen (clinical drug ingredient) Drug/Non Drug Allergy documented on EMR Reaction Allergy Type Onset Date Status amoxicillin Amoxicillin severe reaction Drug Allergy Active REASON FOR REFERRAL No Information MEDICATIONS Medication SIG (Take, Route, Fr equency, Duration) Notes Start Date End Date Status Brogan Active Naproxen as needed Active Vitamin B [...] X ray : Foot, right 3V 10/31/2019 [id number] TENDON SHEATH/LIGAMENT 1 04/03/2019 Insurance Providers Payer Name Payer Address Payer Phone Subscriber Number Group Number Insured Name Patient Relationship to Insured Coverage Start Date Coverage End Date [facility] [address] [place] [address] [id number] DARIANA SHEA Spouse - patient is the spouse of the insured MEDICAL (GENERAL) HISTORY Medical History History ICD Code Anemia Anxiety Back,Hip,and Knee pain Depression Numbness Psychiatric disorder raynauds disease thyroid Measles Mumps Chicken pox Surgical History Surgery Date(Month/Year) lumbar laminectomy 1986 section 1986 gastric bypass 2002 gall bladder 2016 T+A 1977
--- OUTSIDE RECORDS SUMMARY | 2023-08-20 09:19 | XMS_ITS | Continuity of Care Document ---
Author Organization [facility] Address [facility] [place] [address] Care Team Providers Care Check Out Cashier Name Role Phone Staff, Physician Not On Unavailable Unavaila ble Insurance Providers Payer Name Policy Number Subscriber Name Relationshi p Other Commercial [id number] MonseNorma Self/Same as Patient Advance Directives Directive Response Recorded Date/Ti me Does Patient Have Advance Healthcare Directive N o 10/20/15 5:04pm Chief Complaint and Reason for Visit Chief Complaint Medical Evaluation Reason for Visit Insect bite Problems Active Problems Medical Problem Onset Date Status Insect bite Unknown Acute Medications Current Home Medications Medication Dose Units Route Directions Days/Qty Instructi ons Start Date Status Hydroxyzine Pamoate 25 Mg Oral Four Times Daily as needed for Itching 10 Qty 10/20/15 Active Social History Social History Problem Response Recorded Date/Time Onset Date Status Other Tobacco Use No 10/20/2015 4:22pm Query Response Start Date Stop Date Smoking Status Never A Smoker Hospital Discharge Instructions Instructions Demographic Information Patient's Ethnicity:: Not /Not Regulatory Preferred Language:: Smoking Status Smoking Status: Never A Smoker Height Height (Feet): 5 [1 - 10] Height (Inches): 9 Plan of Care Discharge Date 10/20/15 5:10pm Disposition Discharge Home Condition at Discharge Good Instructions/Education Provided [facility] ED Insect Bite Prescriptions See Medication Secti on Referrals [facility] - Additional Instructions/Education Thank you for choosing to come to [facility] emergency Department for your medical needs. You have been evaluated by Dr. Arriaga and received discharge instructions about where to go next for your follow-up. We want you to know that should your condition worsen or you are not 100% well within the time frame described for you, you're welcome and encouraged to come back to this emergency department for evaluation. Please make sure you contact and arrange for an outpatient follow-up with the physician or clinic to whom you been referred. Functional Status No functional status results. Allergies, Adverse Reactions, Alerts Allergen Type Severity Reaction Status Last Updat ed Amoxicillin Allergy Severe HIVES Active 10/20/15 Immunizations No immunization records. Vital Signs Acute Vital Signs Vital Response Date/Time Temperature 98.1 degrees F (97.6 - 100.4) 5:10pm Patient Temperature 36.71194 degrees C (36.4 - 3 8.0) 10/20/2015 5:10pm Patient Temperature 36.63837 degrees C (36.4 - 3 8.0) 10/20/2015 5:10pm Pulse Rate 61 bpm (60 - 100) 10/20/2015 5:1 0pm Respiratory Rate 17 breaths per min (12 - 20) 5:10pm Bedside Pulse Oximetry 100 % (92 - 100) 10/20/19 16 5:10pm Blood Pressure 121/76 mmHg 10/20/2015 5:10p m Height 5 ft 9 in 10/20/2015 4:17p m Weight 194 lb 10/20/2015 4:17p m Body Mass Index 28.75 10/20/2015 4:17p m Results No known relevant diagnostic tests, laboratory data and/or discharge summary. Procedures No known history of procedures. Encounters Encounter Location Arrival/Admit Date Discharge/Depart Date Attending Provider Departed Emergency Room [facility] 10/20/15 3:50pm 10/20/15 5:10pm Ryne Arriaga Recent Diagnosis
[2023-08-20 09:30] VITALS: BP 120/78; PULSE 97; TEMP 37.1; O2SAT 94; BMI 37.9
--- NOTE | 2023-08-20 09:30 | MHC.OFFWIV ---
Intake Vital Signs 08/20/23 09:30 Height 5 ft 9 in Weight 257 lb BMI 37.9 BP 120/78 Blood Pressure Location Lt brachial Position Sitting Pulse 97 Pulse Source Pulse Oximeter Temp 98.8 F Temp Source Temporal Artery Scan Pulse Oximetry (%) 94 Oxygen Delivery Method Room Air Intake Visit Reasons: EP Cough, Headache, nasal congestion Intake Note: pt is here today for cough headache nasal congestion started 3 days ago Patient Tobacco Use Status: Never used Tobacco Allergies amoxicillin [Amoxicillin] Allergy (Severe, Verified 08/20/23 09:40) HIVES, swelling nickel Allergy (Mild, Verified 08/20/23 09:40) Unknown Do you need a note to return to daycare/school/sports/work: No HPI EP Cough, Headache, nasal congestion HPI Details Patient is a 62-year-old female comes to the walk-in clinic complaining of 3 days of headache, nasal congestion, persistent cough with shortness of breath that started 3 days ago. She is 2 weeks out from a vacation where there was a mass outbreak of COVID, but reports that she was negative at the time. She now complains mostly of persistent cough, especially at nighttime, that is only somewhat productive in nature. She feels short of breath, tired/fatigued, and weak. She denies chest pain, nausea vomiting or diarrhea, fever or chills, or other significant associated symptoms. She denies underlying immuno compromising history, however she does have to recent respiratory tract infections that were diagnosed as pneumonia. Three months ago, and then 2 months ago. She was put on antibiotics and prednisone tapers for both of these cases, with symptoms apparently resolved. She does have a fiber optics engineer who follows her for pulmonary nodules which were apparently incidentally found. She denies COPD, frequent bronchitis, longstanding smoking history, or other pertinent history. [facility] Medical History Morbid obesity Polyarthralgia LLQ abdominal pain Chronic diarrhea Adult general medical exam Screening for diabetes mellitus Screening for colon cancer Screening for breast cancer Post-menopausal Depression Left hip pain Left shoulder pain Slurred speech Left lateral abdominal pain Urinary incontinence Osteomyelitis Weight gain Abdominal muscle strain Marginal ulcer Bipolar disorder Anemia ADHD PTSD (post-traumatic stress disorder) Back pain DDD (degenerative disc disease) SOB (shortness of breath) Upper back pain on left side Dizziness Hx of small bowel obstruction Right rotator cuff tear Iron deficiency anemia Obesity GERD (gastroesophageal reflux disease) Hypercholesterolemia Anxiety and depression Osteoarthritis Lumbar disc herniation Surgical History History of endoscopy History of esophagogastroduodenoscopy (EGD) Hx of colonoscopy History of adjustable gastric banding History of removal of laparoscopic gastric banding device Hx of section S/P panniculectomy Hx of laparoscopic gastric banding Hx of laminectomy Hx laparoscopic cholecystectomy History of Theo-en-Y gastric bypass Hx of tonsillectomy Family History Father HTN (hypertension) DM (diabetes mellitus) Bladder cancer Prostate cancer Hyperlipidemia Mother Thyroid nodule Brother No problems noted. Sister No problems noted. Son No problems noted. Daughter No problems noted. Social History Household Members: Spouse, Children and Other Household Members Other:: dog and cat Housing: House Do you presently have visiting nurse or other home services: No Alcohol intake: never Patient Tobacco Use Status: Never used Tobacco e-Cigarette/Vaping Use: Never Used Second Hand Smoke Exposure: No Substance Use Type: Opiates Advance Directives Date on File: 02/10/21 service: No Current occupational status: disabled Sexual orientation: Straight/Heterosexual Cognitive needs: No Hearing needs: No Vision needs: Yes Review of Systems Const All systems reviewed & are unremarkable except as noted in HPI and below Physical Exam Vital Signs: Last Vital Signs Temp 98.8 F 08/20/23 09:30 Pulse 97 08/20/23 09:30 BP 120/78 08/20/23 09:30 Pulse Ox 94 08/20/23 09:30 Oxygen Delivery Method Room Air 08/20/23 09:30 BMI result Body Mass Index 37.9 Const General: cooperative, no acute distress, alert, awake, Physically active and well groomed; No anxious, diaphoretic, intoxicated appearing or poor hygiene Orientation/consciousness: oriented to person Limitations: no limitations HEENT Head: Yes normal to inspection, Yes normocephalic and Yes atraumatic Ears: hearing grossly normal bilaterally, external ears normal, TM's normal bilaterally and EAC's normal General nose exam: Normal external nose present and Nasal discharge present Face and sinus: Yes normal facial exam, Yes sinuses nontender and Yes face symmetric Mouth: Normal oral and palatal mucosa present, lip normal and tongue normal Throat: Yes posterior oropharynx normal, No peritonsillar mass, No postnasal drainage, No uvular edema and No cobblestoning Eyes General: appearance normal, both eyes and all related structures Neck Neck: Yes normal visual inspection, Yes full ROM, Yes no lymphadenopathy, Yes trachea midline, Yes supple and No anterior neck swelling Chest Chest palpation & inspection: normal palpation of entire chest wall Resp Effort & Inspection: normal respiratory effort, able to speak in complete sentences, no audible wheezes, no cough, no grunting, not labored, no nasal flaring, no retractions and symmetric chest movement Auscultation: clear to auscultation bilaterally, no crackles, no rales, no rhonchi, no wheezes and No rub present Cardio Palpation: normal PMI Rate: regular rate Rhythm: regular rhythm Heart sounds: S1 normal heart sound present and S2 normal heart sound present Skin Other: Good color, warm and dry Neuro General: oriented to person Psych Appearance: grossly normal Mental Status: mental status grossly normal Speech and movement: Normal speech and movement present Affect: normal affect Attitude: cooperative Thought process: Normal thought process present Insight: Good insight present (Psych) Judgement: Good judgement present (Psych) Results Reviewed Results Reviewed: Compared two-view chest x-ray today to to prior exams over the last 2 months, and results are similar for likely right lower lung atelectasis. Assessment & Plan Assessment & Plan (1) Lower respiratory infection: Code(s): J22 - Unspecified acute lower respiratory infection Plan: Patient is a 62-year-old female who denies immuno compromising issues, and comes to the walk-in clinic with her family member complaining of 3 days of headache, intense cough, with acute shortness of breath and fatigue viral symptoms. She tested negative for COVID at home. She does have history of 2 cases of respiratory infections over the last 3 months that were diagnosed as pneumonia, although they correspond with x-rays today that showed mostly right lower atelectasis. She was treated with steroids and antibiotics. Chest x-ray today consistent with past results with atelectasis, and possibly a little worsening per radiologist read. We are pending results of flu COVID and RSV testing. She is stable on exam today with no obvious labored breathing or respiratory compromise apparent, however she does complain of feeling short of breath and she does have mildly decreased oxygen saturation on exam, which was 94 % at rest, and with mildly diminished respirations. I think she might have pneumonia, and I will start her on doxycycline, but I am going to hold off on the prednisone due to her presentation, and as she has just completed 2 courses steroids within the past few months. She reports she is only having the cough while she lies supine, so we discussed propping up in bed at night, either with pillows or sitting in a recliner. She will start a course of Tessalon Perles, which has worked for her in the past. She could also take albuterol, which she has at home but has not felt like she has needed. If symptoms persist, she can be considered for a trial of prednisone at that time. She does have a fiber optics engineer for pulmonary nodule surveillance, which was found incidentally with no reported longstanding smoking history. I told her she should consider following up with him as this is her 3rd respiratory infection in a few months, and she has been treated with antibiotics and has had 2 courses of steroid tapers in that time. She does travel frequently, and this might be the cause of her infections. She agreed to follow up, and she will monitor symptoms and follow up sooner as needed if symptoms persist or worsen. She knows to go to the emergency department with worrisome symptoms. Orders: Orders SARS-CoV2/FLU/RSV Today J06.9 - Acute upper respiratory infection, unspecified XR chest 2V Today R05.9 - Cough, unspecified Medications: New benzonatate 200 mg PO BID-TID PRN 30 caps 0RF cough doxycycline monohydrate 100 mg PO BID 14 caps 0RF 7 days Coding Level of Care Code Est Pt Level 4 (52989) Diagnoses Lower respiratory infection J22
== END 2023-08-20 11:22 | disposition home or self-care (01) ==
PROVIDERS: PCP Internal Medicine; Visit Provider Physician Assistant Medical
DX: J22 Unspecified acute lower respiratory infection (principal)
CPT/HCPCS: 99214

== ENCOUNTER 2023-08-20 10:20 | Outpatient (REF) | payer MEDICARE, MEDICAID, SELFPAY ==
--- NOTE | ~2023-08-20 | XR_ITS ---
EXAMINATION: XR CHEST CLINICAL INFORMATION: Cough COMPARISON: Chest radiograph from 06/21/2023 TECHNIQUE: 2 views of the chest were obtained. FINDINGS: Slightly increased left basilar radiopacity may reflect atelectasis versus evolving infectious/inflammatory etiology. No pneumothorax. Trachea is midline. Cardiac mediastinal silhouette is stable. No large pleural effusion. Osseous structures are intact. Soft tissues are unremarkable. XR/XR chest 2V IMPRESSION: Slightly increased left basilar radiopacity may reflect atelectasis versus evolving infectious/inflammatory etiology.
== END 2023-08-20 10:21 | disposition home or self-care (01) ==
LOC: HO.HMGCX 10:20
PROVIDERS: Visit Provider Physician Assistant Medical
DX: Z13.89 Encounter for screening for other disorder (principal)
CPT/HCPCS: 71046

== ENCOUNTER 2023-08-20 11:37 | Outpatient (REF) | payer MEDICARE, MEDICAID, SELFPAY ==
[2023-08-20 12:21] LABS: Influenza A PCR NEGATIVE (Negative); Influenza B PCR NEGATIVE (Negative); Resp Syncy Virus RNA Qual PCR NEGATIVE (Negative); SARS COV2 PCR INHOUSE NEGATIVE (Negative)
== END 2023-08-20 11:38 | disposition home or self-care (01) ==
LOC: HO.LNP 11:37
PROVIDERS: Visit Provider Physician Assistant Medical
DX: J06.9 Acute upper respiratory infection, unspecified (principal); R05.9 Cough, unspecified
CPT/HCPCS: 0241U; 71046

== ENCOUNTER 2023-08-22 05:36 | Observation (INO) | payer MEDICARE, OTHER, SELFPAY ==
[2023-08-22] VITALS (7 sets, daily range): BP systolic 125–143; BP diastolic 71–78; PULSE 68–91; RESP 14–20; TEMP 36.1–37.1; O2SAT 91–98; BMI 38.4
--- NOTE | ~2023-08-22 | XR_ITS ---
EXAMINATION: XR CHEST CLINICAL INFORMATION: Cough, shortness of breath COMPARISON: Multiple priors with the last chest x-ray of 08/20/2023 TECHNIQUE: Frontal view of the chest was obtained. FINDINGS: Cardiomediastinal silhouette is stable and normal. No abnormal tracheal deviation. Right hemidiaphragmatic lobulations are again noted. Lungs are adequately symmetrically expanded. Left basilar retrocardiac patchy opacities are again noted, without significant interval change compared to previous x-ray of 08/20/2023. No new focal consolidation, changes of congestion, pleural effusions or pneumothorax are seen. No displaced rib fractures are noted. XR/XR chest 1V IMPRESSION: Left basilar retrocardiac airspace opacities do not appear to be significantly changed compared to last x-ray of 08/20/2023. The left basilar opacities are new compared to chest x-ray of 06/21/2023 and concerning for infectious or inflammatory infiltrates, less likely atelectasis. No new airspace opacities are seen.
--- OUTSIDE RECORDS SUMMARY | 2023-08-22 06:21 | XMS_ITS | Patient Health Record ---
Author [facility] [place] Address [address] [address] Care Team Providers Care Assistant Warehouse Manager Name Role Phone Driss Santiago Primary Care Provider Jonatan Goncalves Unavailable [phone] ALLERGIES Allergen (clinical drug ingredient) Drug/Non Drug Allergy documented on EMR Reaction Allergy Type Onset Date Status amoxicillin Amoxicillin severe reaction Drug Allergy Active REASON FOR REFERRAL No Information MEDICATIONS Medication SIG (Take, Route, Fr equency, Duration) Notes Start Date End Date Status Shafer Active Naproxen as needed Active Vitamin B [...] X ray : Foot, right 3V 10/31/2019 [id number] TENDON SHEATH/LIGAMENT 1 04/03/2019 Insurance Providers Payer Name Payer Address Payer Phone Subscriber Number Group Number Insured Name Patient Relationship to Insured Coverage Start Date Coverage End Date [facility] [address] [place] [address] [phone] [id number] DARIANA SHEA Spouse - patient is the spouse of the insured MEDICAL (GENERAL) HISTORY Medical History History ICD Code Anemia Anxiety Back,Hip,and Knee pain Depression Numbness Psychiatric disorder raynauds disease thyroid Measles Mumps Chicken pox Surgical History Surgery Date(Month/Year) lumbar laminectomy 1986 section 1986 gastric bypass 2002 gall bladder 2016 T+A 1977
--- NOTE | 2023-08-22 07:13 | ED_ITS ---
HPI - General Adult General Chief complaint: General Medical Stated complaint: pneumonia not getting better Time Seen by Provider: 08/22/23 07:08 Source: patient Mode of arrival: ambulatory Limitations: no limitations History of Present Illness ED Provider: Сергей JEFFERSON HPI narrative: This is a 62-year-old female history of coarse tremors, obesity, cricopharyngeal achalasia, daytime sleepiness, fibromyalgia, hypothyroidism, bipolar disorder, GERD, hyperlipidemia presenting to the emergency department complaints of cough, congestion, runny nose, fatigue, malaise, myalgias for the past week or so, patient reports she was seen at the [place] urgent care, diagnosed with pneumonia was started on antibiotics however does not seem to be improving. Patient reports shortness of breath with exertion. No associated chest pain, fevers, chills, headache, vision changes, nausea, vomiting, abdominal pain or diarrhea Related Data Home Medications ?Medication ?Instructions ?Recorded ?Confirmed carisoprodol 350 mg tablet (Soma) 350 mg PO TID PRN Pain 03/03/22 06/21/23 cholecalciferol (vitamin D3) 125 125 mcg PO DAILY 11/24/22 06/21/23 mcg (5,000 unit) capsule lurasidone 40 mg tablet (Latuda) 60 mg PO BEDTIME 11/24/22 06/21/23 lithium carbonate 300 mg capsule 900 mg PO DAILY 06/01/23 06/21/23 Previous Rx's ?Medication ?Instructions ?Recorded diclofenac sodium 1 % topical gel 4 g topical QID #100 grams 03/03/22 (Voltaren Arthritis Pain) semaglutide (weight loss) 0.25 0.25 mg (0.5 mL) subcut QWEEK 28 06/14/23 mg/0.5 mL subcutaneous pen days #2 mL injector (Wegovy) albuterol sulfate 90 mcg/actuation 2 puff inhalation Q6H PRN 06/21/23 aerosol inhaler shortness of breath or wheezing #8.5 grams azithromycin 250 mg tablet See Rx Instructions PO .COMPLEX #6 06/21/23 tabs levothyroxine 88 mcg tablet 88 mcg PO DAILY 90 days #90 tabs 06/21/23 prednisone 20 mg tablet 20 mg PO BID #10 tabs 06/21/23 furosemide 20 mg tablet 20 mg PO DAILY PRN leg edema 10 07/15/23 days #10 tabs benzonatate 200 mg capsule 200 mg PO BID-TID PRN cough #30 08/20/23 caps doxycycline monohydrate 100 mg 100 mg PO BID 7 days #14 caps 08/20/23 capsule Allergies Allergy/AdvReac Type Severity Reaction Status Date / Time amoxicillin [Amoxicillin] Allergy Severe HIVES, Verified 08/22/23 05:53 swelling nickel Allergy Mild Unknown Verified 08/22/23 05:53 Review of Systems 2 Review of Systems: Yes all other systems are reviewed and are negative [facility] Past Medical History Attestation statement: The following information was validated with the patient. Source: old records reviewed and nursing notes reviewed Medical History Morbid obesity Polyarthralgia LLQ abdominal pain Chronic diarrhea Adult general medical exam Screening for diabetes mellitus Screening for colon cancer Screening for breast cancer Post-menopausal Depression Left hip pain Left shoulder pain Slurred speech Left lateral abdominal pain Urinary incontinence Osteomyelitis Weight gain Abdominal muscle strain Marginal ulcer Bipolar disorder Anemia ADHD PTSD (post-traumatic stress disorder) Back pain DDD (degenerative disc disease) SOB (shortness of breath) Upper back pain on left side Dizziness Hx of small bowel obstruction Right rotator cuff tear Iron deficiency anemia Obesity GERD (gastroesophageal reflux disease) Hypercholesterolemia Anxiety and depression Osteoarthritis Lumbar disc herniation Surgical History History of endoscopy History of esophagogastroduodenoscopy (EGD) Hx of colonoscopy History of adjustable gastric banding History of removal of laparoscopic gastric banding device Hx of section S/P panniculectomy Hx of laparoscopic gastric banding Hx of laminectomy Hx laparoscopic cholecystectomy History of Theo-en-Y gastric bypass Hx of tonsillectomy Family History Family History Father HTN (hypertension) DM (diabetes mellitus) Bladder cancer Prostate cancer Hyperlipidemia Mother Thyroid nodule Brother No problems noted. Sister No problems noted. Son No problems noted. Daughter No problems noted. Social History Social History Household Members: Spouse, Children and Other Household Members Other:: dog and cat Housing: House Do you presently have visiting nurse or other home services: No Alcohol intake: never Patient Tobacco Use Status: Never used Tobacco Smoked in Last 30 Days: No e-Cigarette/Vaping Use: Never Used Second Hand Smoke Exposure: No Use of substances other than those prescribed or required for medical reasons: No Substance Use Type: Opiates Advance Directives: Yes Advance Directives on File: Yes Advance Directives Date on File: 02/10/21 Do you have a plan to hurt others: No Plan service: No Current occupational status: disabled Sexual orientation: Straight/Heterosexual Cognitive needs: No Hearing needs: No Vision needs: Yes Physical Exam ED Vital Signs: Vital Signs - 24 hr 08/22/23 05:48 08/22/23 08:24 Temperature 98.8 F Pulse Rate 89 85 Respiratory Rate 18 20 Blood Pressure 143/75 H 142/71 H Pulse Oximetry 93 91 L Oxygen Delivery Method Room Air Room Air BMI result Body Mass Index 38.4 Vital signs stable Appearance: Alert.? Oriented X3.? No acute distress.? Head: Normocephalic, atraumatic, no step-offs or deformities Eyes: Pupils equal, round and reactive to light.? ENT: Pharynx normal.? Neck: Normal inspection.? Neck supple.? CVS: Normal heart rate and rhythm.? Pulses normal.? Respiratory: No respiratory distress.? Breath sounds diminished b/l and faint crackles b/l L>R.? Abdomen: Soft and nontender.? Skin: Skin warm and dry.? Normal skin color.? Normal skin turgor.? Extremities: No lower extremity edema.? No calf ttp. 5/5 strength to bilateral upper and lower extremities Neuro: Oriented X 3.? No motor deficit.? No sensory deficit. CN 2-12 intact Course Reevaluation(s) Reevaluation #1: CBC unremarkable. Chemistry no acute findings needing intervention. Chest x- ray left basilar retrocardiac airspace opacities do not appear to be significantly change to last x-ray 08/20/2023. Left basilar opacities are new compared to chest x-ray of 06/21/2023 concerning for infectious or inflammatory infiltrates. Infection suspected blood cultures, lactic acid antibiotics and fluids ordered. Will give Levaquin due to patient's penicillin allergy. Plan is ambulatory O2 and hospital admission. Time: 08:46 Reevaluation #2: Pt is feeling better on re-evaluation. Discuss this case with hospitalist who will be admitting patient to the hospital. Respiratory pathogen panel is still pending. Time: 08:46 Medications Administered Discontinued Medications Generic Name Dose Route Start Last Admin Trade Name Richard PRN Reason Stop Dose Admin Dexamethasone Sodium Phosphate 10 mg 08/22/23 07:12 08/22/23 08:03 Dexamethasone Sod Phosphate 10 Mg/Ml Vial IVPUSH 08/22/23 07:13 10 mg ONCE ONE Administration Sodium Chloride 1,000 mls @ 999 mls/hr 08/22/23 07:15 08/22/23 08:03 Ns IV 08/22/23 08:15 999 mls/hr .Q1H1M SHARONA Administration Levofloxacin 500 mg in 100 mls @ 100 mls/hr 08/22/23 07:09 08/22/23 08:03 Levaquin IV 08/22/23 08:08 100 mls/hr ONCE ONE Administration Medical Decision Making Medical Decision Making MDM Narrative: 62-year-old female known history of pneumonia presents with worsening shortness of breath and upper respiratory symptoms. Is currently on p.o. antibiotics however she does not feel like these are helping. Physical exam with diminished breath sounds bilaterally and faint crackles to bilateral lower lobes worse on the left lower lobe. History and physical exam concerning for bronchitis versus pneumonia that is not improving despite p.o. antibiotics. Less likely pulmonary embolism. No signs of acute respiratory distress. Unlikely ACS, PE, dissection. Plan labs, imaging. Will obtain an ambulatory O2 Differential Diagnosis Differential Diagnoses: The differential diagnosis associated with the presentation includes History and physical exam concerning for bronchitis versus pneumonia that is not improving despite p.o. antibiotics. Less likely pulmonary embolism. No signs of acute respiratory distress. Unlikely ACS, PE, dissection. Admission/Observation Consideration of admission/observation: Escalation of care including admission/observation considered Possible Lab Data [facility] Lab Attestation statement: I reviewed the patient's lab results. 08/22/23 07:59 08/22/23 07:59 Labs: Lab Results 08/22/23 Range/Units 07:59 WBC 5.7 (4.8-10.8) X10*3/uL RBC 4.74 (4.20-5.50) X10*6/uL Hgb 14.1 (12.0-16.0) g/dl Hct 43.5 (37.0-47.0) % MCV 91.8 (80.0-98.0) fL MCH 29.7 (27.0-33.0) pg MCHC 32.4 (31.0-35.0) g/dl RDW 13.0 (11.0-16.0) % Plt Count 185 D (160-400) X10*3/uL MPV 10.0 (9.4-12.3) fL Immature Gran % (Auto) 0.3 (0.0-0.4) % Neut % (Auto) 68.5 (45-73) % Lymph % (Auto) 19.2 L (20-40) % [place] % (Auto) 8.9 (2-11) % Eos % (Auto) 2.8 (0-4) % Baso % (Auto) 0.3 (0-2) % Lymph # (Auto) 1.1 L (1.2-4.9) X10*3/uL [place] # (Auto) 0.5 (0.1-1.2) X10*3/uL Eos # (Auto) 0.2 (0.0-0.4) X10*3/uL Baso # (Auto) 0.0 (0.0-0.2) X10*3/uL Abs Immat Gran (auto) 0.02 (0.00-0.03) X10*3/uL Absolute Neuts (auto) 3.9 (2.0-8.3) x10*3/uL Absolute Nucleated RBC 0.000 (0.0-0.012) X10*3/uL Nucleated RBC % (auto) 0.0 (0.0-0.2) /100WBC PT 11.6 (11.1-13.3) SEC INR 1.0 (0.9-1.1) Sodium 137 (135-145) mmol/L Potassium 4.3 (3.3-5.1) mmol/L Chloride 108 (96-108) mmol/L Carbon Dioxide 20 L (22-29) mmol/L Anion Gap 13 (12-20) BUN 9 (9-16) mg/dL Creatinine 0.73 (0.5-1.4) mg/dL Estim Creat Clear Calc 108.2 Estimated GFR > 60 Random Glucose 113 (60-115) mg/dL Lactic Acid 1.0 (0.5-2.0) mmol/L Calcium 9.4 (8.4-10.2) mg/dL Magnesium 2.1 (1.6-2.6) mg/dL Total Bilirubin 0.3 (0.0-1.0) mg/dL AST 18 (5-31) U/L ALT 9 (0-31) U/L Alkaline Phosphatase 92 (39-117) U/L B-Natriuretic Peptide 34 (<100) pg/mL Total Protein 6.9 (6.5-8.0) g/dL Albumin 3.8 (3.5-5.0) g/dL Independent Interpretation I performed an independent interpretation of an: Plain X-Ray ( XR/XR chest 1V IMPRESSION: Left basilar retrocardiac airspace opacities do not appear to be significantly changed compared to last x-ray of 08/20/2023. The left basilar opacities are new compared to chest x-ray of 06/21/2023 and concerning for infectious or inflammatory infiltrates, less likely atel) Radiology Impression Discussion of test interpretation with radiology: I have reviewed the radiologist's reading. External Record Review External record reviewed: Inpatient record, Office record, Outpatient record, Prior outpatient labs, Prior outpatient radiology, Primary care record and Outside ED record Tests considered The following testing was considered but not selected: Considered CTA however more likley pna, no significant risk factors and not tachycardic Chronic Conditions Patient?s care impacted by: Other ( coarse tremors, obesity, cricopharyngeal achalasia, daytime sleepiness, fibromyalgia, hypothyroidism, bipolar disorder, GERD, hyperlipidemia ) Critical Care Time Critical Care Time Critical Care Time: Yes Total Critical Care Time: 35 Attestation: I attest to this time spent taking care of the patient, obtaining history, physical, reviewing labs, imaging, speaking to my attending, specialist or hospitalist. Discharge Plan Discharge Clinical Impression: Pneumonia, Hypoxia Patient Disposition: Admitted As Inpatient Prescriptions: No Action Wegovy 0.25 mg/0.5 mL pen injector 0.25 mg subcut QWEEK 28 Days Qty: 2 0RF Rx Instructions: administer weeks 1 through 4 of therapy levothyroxine 88 mcg tablet 88 mcg PO DAILY 90 Days Qty: 90 2RF furosemide 20 mg tablet 20 mg PO DAILY PRN (Reason: leg edema) 10 Days Qty: 10 0RF carisoprodol [Soma] 350 mg tablet 350 mg PO TID PRN (Reason: Pain) diclofenac sodium [Voltaren Arthritis Pain] 1 % gel 4 g topical QID Qty: 100 4RF Rx Instructions: apply to single knee, ankle, foot; for foot includes sole/toes/top of foot azithromycin 250 mg tablet See Rx Instructions PO .COMPLEX Qty: 6 0RF Rx Instructions: For 250 mg dose pack: take 500 mg today (day 1), then 250 mg for 4 days (days 2-5) PO prednisone 20 mg tablet 20 mg PO BID Qty: 10 0RF albuterol sulfate 90 mcg/actuation HFA aerosol inhaler 2 puff inhalation Q6H PRN (Reason: shortness of breath or wheezing) Qty: 8.5 0RF lithium carbonate 300 mg capsule 900 mg PO DAILY benzonatate 200 mg capsule 200 mg PO BID-TID PRN (Reason: cough) Qty: 30 0RF doxycycline monohydrate 100 mg capsule 100 mg PO BID 7 Days Qty: 14 0RF lurasidone [Latuda] 40 mg tablet 60 mg PO BEDTIME cholecalciferol (vitamin D3) 125 mcg (5,000 unit) capsule 125 mcg PO DAILY Print Language: Dominican
[2023-08-22] MEDS: dexAMETHasone sod phosphate 10 MG/ML VIAL IVPUSH (08:03)
[2023-08-22] MEDS: 0.9 % Sodium Chloride 1,000 ML 999 ML IV (08:03)
[2023-08-22] MEDS: levoFLOXacin/D5W 500 MG/100 ML PIGGYBACK 100 MG IV (08:03)
[2023-08-22 08:08] LABS: MANUAL DIFF FLAG NO
[2023-08-22 08:11] LABS: Basophils Percent Auto 0.3 % (0-2); Eosinophils Absolute Auto 0.2 X10*3/uL (0.0-0.4); Eosinophils Percent Auto 2.8 % (0-4); Hematocrit 43.5 % (37.0-47.0); Hemoglobin 14.1 g/dl (12.0-16.0); Imm Gran Abs Auto 0.02 X10*3/uL (0.00-0.03); Imm Gran Pct Auto 0.3 % (0.0-0.4); Lymphocytes Absolute Auto 1.1 X10*3/uL (1.2-4.9); Lymphocytes Percent Auto 19.2 % (20-40); Mean Corpuscular HGB Conc 32.4 g/dl (31.0-35.0); Mean Corpuscular Hemoglobin 29.7 pg (27.0-33.0); Mean Corpuscular Volume 91.8 fL (80.0-98.0); Monocytes Absolute Auto 0.5 X10*3/uL (0.1-1.2); Monocytes Percent Auto 8.9 % (2-11); Neutrophils Absolute Auto 3.9 x10*3/uL (2.0-8.3); Neutrophils Percent Auto 68.5 % (45-73); Platelet Count 185 X10*3/uL (160-400); Red Blood Count 4.74 X10*6/uL (4.20-5.50); White Blood Count 5.7 X10*3/uL (4.8-10.8)
[2023-08-22 08:16] LABS: Prothrombin Time 11.6 SEC (11.1-13.3)
[2023-08-22 08:26] LABS: Alanine Aminotransferase 9 U/L (0-31); Albumin Level 3.8 g/dL (3.5-5.0); Alkaline Phosphatase 92 U/L (39-117); Anion Gap 13 (12-20); Aspartate Amino Transferase 18 U/L (5-31); Bilirubin Total 0.3 mg/dL (0.0-1.0); Blood Urea Nitrogen 9 mg/dL (9-16); Calcium 9.4 mg/dL (8.4-10.2); Carbon Dioxide 20 mmol/L (22-29); Chloride 108 mmol/L (96-108); Creatinine Clr Calc Pharmacy 108.2; Estimated Glomerular Filt Rate > 60; Glucose Random 113 mg/dL (60-115); Magnesium 2.1 mg/dL (1.6-2.6); Potassium 4.3 mmol/L (3.3-5.1); Sodium 137 mmol/L (135-145); Total Protein 6.9 g/dL (6.5-8.0)
[2023-08-22 08:30] LABS: B Type Natriuretic Peptide 34 pg/mL (<100)
[2023-08-22 08:53] LABS: Influenza A PCR NEGATIVE (Negative); Influenza B PCR NEGATIVE (Negative); Resp Syncy Virus RNA Qual PCR NEGATIVE (Negative); SARS COV2 PCR INHOUSE NEGATIVE (Negative)
--- NOTE | 2023-08-22 09:47 | PC.NURSE ---
REPEAT AMBULATION TRIAL 93% ON RA. DRY COUGH, EXERTIONAL DYSPNEA ONGOING. NSR ON MONITOR. PT AWARE OF PLAN FOR ADMISSION.
--- NOTE | 2023-08-22 10:43 | PM.IMHP ---
History of Present Illness Date of Service: 08/22/23 Attending physician on admission: Nitesh Toure Chief Complaint: wheezing, cough 62-year-old female with history of GERD, hyperlipidemia, mood disorder, fibromyalgia, hypothyroidism who presented to the ED earlier today for evaluation of a worsening productive cough ongoing for 5 days as well as shortness of breath and wheezing. The patient reports periods of sweats and chills but has not taken her temperature. She has also had associated nasal congestion, rhinorrhea, fatigue, malaise, myalgias. She was seen at urgent care 2 days ago and was diagnosed with pneumonia though reviewing chest x-ray there was chronic scarring but no focal consolidation. She was discharged on doxycycline and Tessalon Perles per the patient but has not felt better. She denies any sick contacts. She has been to the ER several times over the last few months with recurrent bronchitis. She states she has followed up with pulmonology who performed a CT scan of her lungs which was reassuring per the patient, saw Dr. Painter at [facility]. She has not yet undergone pulmonary function testing but states that her PCP has ordered this. In the ED, there is no hypoxia though did desaturate to 91% with ambulation. She has afebrile. no leukocytosis renal function and lytes normal. Negative for COVID-19, RSV, influenza. Full RPP is pending. Chest x-ray shows left basilar retrocardiac airspace opacities but unchanged compared to prior x-rays from 08/19 but are new since 05/2023 xrays. In the ED has been started on levaquin and given dexamethasone. Review of Systems Review of Systems: Yes all other systems are reviewed and are negative [facility] Medical History Morbid obesity Polyarthralgia LLQ abdominal pain Chronic diarrhea Adult general medical exam Screening for diabetes mellitus Screening for colon cancer Screening for breast cancer Post-menopausal Depression Left hip pain Left shoulder pain Slurred speech Left lateral abdominal pain Urinary incontinence Osteomyelitis Weight gain Abdominal muscle strain Marginal ulcer Bipolar disorder Anemia ADHD PTSD (post-traumatic stress disorder) Back pain DDD (degenerative disc disease) SOB (shortness of breath) Upper back pain on left side Dizziness Hx of small bowel obstruction Right rotator cuff tear Iron deficiency anemia Obesity GERD (gastroesophageal reflux disease) Hypercholesterolemia Anxiety and depression Osteoarthritis Lumbar disc herniation Family History Father HTN (hypertension) DM (diabetes mellitus) Bladder cancer Prostate cancer Hyperlipidemia Mother Thyroid nodule Brother No problems noted. Sister No problems noted. Son No problems noted. Daughter No problems noted. Surgical History History of endoscopy History of esophagogastroduodenoscopy (EGD) Hx of colonoscopy History of adjustable gastric banding History of removal of laparoscopic gastric banding device Hx of section S/P panniculectomy Hx of laparoscopic gastric banding Hx of laminectomy Hx laparoscopic cholecystectomy History of Theo-en-Y gastric bypass Hx of tonsillectomy Social History Household Members: Spouse, Children and Other Household Members Other:: dog and cat Housing: House Do you presently have visiting nurse or other home services: No Alcohol intake: never Patient Tobacco Use Status: Never used Tobacco Smoked in Last 30 Days: No e-Cigarette/Vaping Use: Never Used Second Hand Smoke Exposure: No Use of substances other than those prescribed or required for medical reasons: No Substance Use Type: Opiates Advance Directives: Yes Advance Directives on File: Yes Advance Directives Date on File: 02/10/21 Do you have a plan to hurt others: No Plan service: No Current occupational status: disabled Sexual orientation: Straight/Heterosexual Cognitive needs: No Hearing needs: No Vision needs: Yes Meds Allergies Allergy/AdvReac Type Severity Reaction Status Date / Time amoxicillin [Amoxicillin] Allergy Severe HIVES, Verified 08/22/23 05:53 swelling nickel Allergy Mild Unknown Verified 08/22/23 05:53 Active Medications: Current Medications Acetaminophen (Acetaminophen 325 Mg Tablet) 650 mg PO Q6H PRN PRN Reason: Pain, Mild (Pain Scale 1-3), fever or headache Albuterol/Ipratropium (Albuterol/Iprat 2.5/0.5mg 3 Ml Ampul.Neb) 3 ml INHALE RQ4H WHILE AWAKE SHARONA Albuterol/Ipratropium (Albuterol/Iprat 2.5/0.5mg 3 Ml Ampul.Neb) 3 ml INHALE RQ4H WHILE AWAKE PRN PRN Reason: Shortness of Breath/Wheezing Calcium Carbonate (Calcium Carbonate 750 Mg Tab.Chew) 750 mg PO Q4H PRN PRN Reason: Heartburn Guaifenesin (Guaifenesin 200 Mg/10 Ml 10 Ml Liquid) 10 ml PO Q4H PRN PRN Reason: Cough Magnesium Hydroxide (Milk Of Magnesia 30 Ml Oral.Susp) 30 ml PO DAILY PRN PRN Reason: Constipation Melatonin (Melatonin 3 Mg Tablet) 6 mg PO BEDTIME PRN PRN Reason: Insomnia Methylprednisolone Sodium Succinate (Methylprednisolone Sod Succ 40 Mg/Ml Vial) 40 mg IVPUSH Q12H SHARONA Sodium Chloride (0.9 % Sodium Chloride Flush 3 Ml Syringe) 3 ml IVFLUSH QSHIFT SHARONA Home Medications ?Medication ?Instructions ?Recorded ?Confirmed ?Last Taken ?Type carisoprodol 350 mg tablet (Soma) 350 mg PO TID PRN Pain 03/03/22 06/21/23 Unknown History cholecalciferol (vitamin D3) 125 125 mcg PO DAILY 11/24/22 06/21/23 Unknown History mcg (5,000 unit) capsule lurasidone 40 mg tablet (Latuda) 60 mg PO BEDTIME 11/24/22 06/21/23 Unknown History diazepam 5 mg tablet 5 mg PO TID PRN Anxiety 08/22/23 Unknown History diclofenac sodium 3 % topical gel 1 appl topical BID 08/22/23 Unknown History levothyroxine 50 mcg tablet 50 mcg PO DAILY 08/22/23 Unknown History liothyronine 5 mcg tablet 5 mcg PO BID 08/22/23 Unknown History lithium carbonate 300 mg 900 mg PO BEDTIME 08/22/23 Unknown History tablet,extended release lorazepam 0.5 mg tablet PO 08/22/23 Unknown History Physical Exam Vital Signs and Narrative: Vital Signs: Last Vital Signs Temp 98.8 F 08/22/23 05:48 Pulse 85 08/22/23 08:24 Resp 20 08/22/23 08:24 BP 142/71 H 08/22/23 08:24 Pulse Ox 91 L 08/22/23 08:24 O2 Del Method Room Air 08/22/23 08:24 BMI result Body Mass Index 38.4 Constitutional - Awake and Alert, No apparent distress Eyes - PERRLA, EOMI Cardiovascular - S1S2, RRR, No edema Respiratory - Normal lung expansion, Normal respiratory effort, No respiratory distress, bilateral expiratory wheezing Gastrointestinal - NT / ND; +BS; No rebound or guarding Extremities - no calf tenderness bilaterally, no swelling Skin - Warm/Dry Neurological - Alert & oriented x3 Psychological - Appropriate affect Results Labs 08/22/23 07:59 08/22/23 07:59 Labs: Laboratory Results - last 24 hr 08/22/23 08/22/23 07:59 08:00 MCV 91.8 MCH 29.7 MCHC 32.4 RDW 13.0 Plt Count 185 D MPV 10.0 Immature Gran % (Auto) 0.3 Neut % (Auto) 68.5 Lymph % (Auto) 19.2 L [place] % (Auto) 8.9 Eos % (Auto) 2.8 Baso % (Auto) 0.3 Lymph # (Auto) 1.1 L [place] # (Auto) 0.5 Eos # (Auto) 0.2 Baso # (Auto) 0.0 Abs Immat Gran (auto) 0.02 Absolute Neuts (auto) 3.9 Absolute Nucleated RBC 0.000 Nucleated RBC % (auto) 0.0 PT 11.6 INR 1.0 Anion Gap 13 Estim Creat Clear Calc 108.2 Estimated GFR > 60 Random Glucose 113 Lactic Acid 1.0 Calcium 9.4 Magnesium 2.1 Total Bilirubin 0.3 AST 18 ALT 9 Alkaline Phosphatase 92 B-Natriuretic Peptide 34 Total Protein 6.9 Albumin 3.8 Influenza Type A (PCR) NEGATIVE Influenza Type B (PCR) NEGATIVE RSV RNA Qual (PCR) NEGATIVE SARS-CoV-2 RNA (RT-PCR) NEGATIVE Imaging Radiologist's Impressions: Impressions Chest X-Ray 08/22/23 06:30 IMPRESSION: Left basilar retrocardiac airspace opacities do not appear to be significantly changed compared to last x-ray of 08/20/2023. The left basilar opacities are new compared to chest x-ray of 06/21/2023 and concerning for infectious or inflammatory infiltrates, less likely atelectasis. No new airspace opacities are seen. Assessment and Plan (1) Bronchitis: Status: Inactive Plan 62-year-old female with history of GERD, hyperlipidemia, mood disorder, fibromyalgia, hypothyroidism to be observed for acute bronchitis with possible pneumonia #Acute bronchitis with possible pneumonia -no leukocytosis, fevers. No sepsis. No hypoxia. ?viral etiology -CXR shows left basilar retrocardiac opacities -Will cover with IV ctx and doxy while awaiting resutls of RPP. Negative for COVID, flu, rsv -iv methylprednisolone 40mg bid -duonebs q4h while awake/prn -guaifenesin -strep penumo ag, legionella ag, sputum cx -follow cbc/cultures -needs outpt follow up for pft #gerd -ppi #hypothyroidism -continue levothyroxine and liothyronine #Mood disorder -continue home meds dvt prophylaxis- scps, early ambulation full code Quality Stroke Does the patient have a stroke diagnosis?: No VTE Prior VTE?: No VTE Risk Level:: Medical - moderate - high VTE Device Contraindication: Treatment Not Indicated VTE Drug Contraindication: N/A - Med Ordered
[2023-08-22 10:55] LABS: Adenovirus PCR Not Detected (Not Detect.); Bordetella parapertussis PCR Not Detected (Not Detect.); Bordetella pertussis PCR Not Detected (Not Detect.); Chlamydia pneumoniae PCR Not Detected (Not Detect.); Coronavirus 229E PCR Not Detected (Not Detect.); Coronavirus HKU1 PCR Not Detected (Not Detect.); Coronavirus NL63 PCR Not Detected (Not Detect.); Coronavirus OC43 PCR Not Detected (Not Detect.); Human metapneumovirus PCR Detected (Not Detect.); Influenza A PCR Not Detected (Not Detect.); Influenza B PCR Not Detected (Not Detect.); Mycoplasma pneumoniae PCR Not Detected (Not Detect.); Parainfluenza 1 PCR Not Detected (Not Detect.); Parainfluenza 2 PCR Not Detected (Not Detect.); Parainfluenza 3 PCR Not Detected (Not Detect.); Parainfluenza 4 PCR Not Detected (Not Detect.); RSV PCR Not Detected (Not Detect.); Rhino/Enterovirus PCR Not Detected (Not Detect.)
[2023-08-22 11:16] LABS: SARS-CoV-2 PCR Not Detected (Not Detect.)
--- NOTE | 2023-08-22 11:18 | PHA.MEDREC ---
Pharmacy Consult ? Medication Reconciliation Pharmacy has completed the medication reconciliation. Spoke to patient to confirm med list. Patient states she hasn't started Furosemide 20 mg daily, or Wegovy 0.25 mg qweek. [place] Carbonate she takes 600mg at bedtime , Lurasidone is 40 mg daily and she is on both Liothyronine 5mcg bid and Levothyroxine, however she wasn't sure what strength was on. Patient states she just picked up from [facility]. so, i called [facility] [facility] to verify what she picked up last. She last picked up Levothyroxine 50 mcg daily on 08-12-23.
[2023-08-22] MEDS: carisoprodoL 350 MG TABLET PO ×2 (14:08→20:13)
[2023-08-22] MEDS: Albuterol/Iprat 2.5/0.5MG 3 ML AMPUL.NEB INHALE ×2 (15:22→19:45)
[2023-08-22] MEDS: 0.9 % Sodium Chloride Flush 3 ML SYRINGE IVFLUSH ×2 (17:36→23:16)
[2023-08-22] MEDS: methylPREDNISolone Sod Succ 40 MG/ML VIAL IVPUSH (17:37)
[2023-08-22] MEDS: Lithium Carbonate ER 300 MG TABLET.ER 600 MG PO (20:12)
[2023-08-22] MEDS: guaiFENesin 200 MG/10 ML 10 ML LIQUID PO (23:10)
[2023-08-23] VITALS: BP 163/80; PULSE 73; RESP 18; TEMP 36.4; O2SAT 97
[2023-08-23 04:00] VITALS: BP 148/82; PULSE 83; RESP 18; TEMP 36.3; O2SAT 97
[2023-08-23] MEDS: carisoprodoL 350 MG TABLET PO (05:49)
[2023-08-23] MEDS: Levothyroxine Sodium 50 MCG TABLET PO (05:49)
[2023-08-23] MEDS: methylPREDNISolone Sod Succ 40 MG/ML VIAL IVPUSH (05:49)
[2023-08-23 06:52] LABS: MANUAL DIFF FLAG NO
[2023-08-23 07:06] LABS: Basophils Percent Auto 0.2 % (0-2); Eosinophils Absolute Auto 0.1 X10*3/uL (0.0-0.4); Eosinophils Percent Auto 1.1 % (0-4); Hematocrit 41.6 % (37.0-47.0); Hemoglobin 13.7 g/dl (12.0-16.0); Imm Gran Abs Auto 0.03 X10*3/uL (0.00-0.03); Imm Gran Pct Auto 0.5 % (0.0-0.4); Lymphocytes Absolute Auto 1.9 X10*3/uL (1.2-4.9); Lymphocytes Percent Auto 34.8 % (20-40); Mean Corpuscular HGB Conc 32.9 g/dl (31.0-35.0); Mean Corpuscular Hemoglobin 29.6 pg (27.0-33.0); Mean Corpuscular Volume 89.8 fL (80.0-98.0); Mean Platelet Volume 10.3 fL (9.4-12.3); Monocytes Absolute Auto 0.6 X10*3/uL (0.1-1.2); Monocytes Percent Auto 11.7 % (2-11); Neutrophils Absolute Auto 2.8 x10*3/uL (2.0-8.3); Neutrophils Percent Auto 51.7 % (45-73); Platelet Count 234 X10*3/uL (160-400); Red Blood Count 4.63 X10*6/uL (4.20-5.50); Red Cell Distribution Width 12.9 % (11.0-16.0); White Blood Count 5.5 X10*3/uL (4.8-10.8)
[2023-08-23 07:24] LABS: Anion Gap 13 (12-20); Blood Urea Nitrogen 9 mg/dL (9-16); Carbon Dioxide 25 mmol/L (22-29); Chloride 108 mmol/L (96-108); Creatinine Clr Calc Pharmacy 105.3; Estimated Glomerular Filt Rate > 60; Glucose Random 90 mg/dL (60-115); Potassium 4.3 mmol/L (3.3-5.1); Sodium 142 mmol/L (135-145)
[2023-08-23 07:37] VITALS: PULSE 83; RESP 18; O2SAT 97
[2023-08-23] MEDS: Albuterol/Iprat 2.5/0.5MG 3 ML AMPUL.NEB INHALE (07:37)
[2023-08-23 07:50] VITALS: BP 162/88; PULSE 64; RESP 17; TEMP 36.3; O2SAT 99
[2023-08-23] MEDS: Lurasidone HCl 40 MG TABLET PO (07:54)
--- NOTE | 2023-08-23 08:38 | P.DS_ITS ---
DS: Providers Provider Date of Service: 08/23/23 Date of admission: 08/22/23 10:36 Primary care physician: Shahida Graham MD DS: Diagnosis Discharge Diagnosis (1) Bronchitis: Status: Inactive DS: Summary Hospital Course Hospital Course: admission hpi Chief Complaint: wheezing, cough 62-year-old female with history of GERD, hyperlipidemia, mood disorder, fibromyalgia, hypothyroidism who presented to the ED earlier today for evaluation of a worsening productive cough ongoing for 5 days as well as shortness of breath and wheezing. The patient reports periods of sweats and chills but has not taken her temperature. She has also had associated nasal congestion, rhinorrhea, fatigue, malaise, myalgias. She was seen at urgent care 2 days ago and was diagnosed with pneumonia though reviewing chest x-ray there was chronic scarring but no focal consolidation. She was discharged on doxycycline and Tessalon Perles per the patient but has not felt better. She denies any sick contacts. She has been to the ER several times over the last few months with recurrent bronchitis. She states she has followed up with pulmonology who performed a CT scan of her lungs which was reassuring per the patient, saw Dr. Painter at [facility]. She has not yet undergone pulmonary function testing but states that her PCP has ordered this. In the ED, there is no hypoxia though did desaturate to 91% with ambulation. She has afebrile. no leukocytosis renal function and lytes normal. Negative for COVID-19, RSV, influenza. Full RPP is pending. Chest x-ray shows left basilar retrocardiac airspace opacities but unchanged compared to prior x-rays from 08/19 but are new since 05/2023 xrays. In the ED has been started on levaquin and given dexamethasone. hospital course: The patient presented with shortness of breath, cough, and wheezing. Work-up revealed a positive test for human metapneumovirus, and a chest X-ray showed infiltrates consistent with pneumonia. Tests for COVID-19, RSV, and influenza were negative. She was admitted and treated with ceftriaxone, which she tolerated despite a penicillin allergy, and intravenous doxycycline for pneumonia. Her reactive airway disease, possibly asthma, was managed with nebulized bronchodilators and intravenous Solu-Medrol. She made a fzarude-pvmv-[id number] recovery, with improved symptoms, no hypoxia, and clear lungs on examination. She will be discharged with oral cefuroxime and doxycycline for pneumonia and a short course of prednisone for reactive airway disease, likely asthma. She is advised to follow up with a unclaimed property officer for pulmonary function testing (PFT). Discharge Medications: * Cefuroxime --for pneumonia * Doxycycline -- for pneumonia * Prednisone --for reactive airway disease Follow-Up: * Hand Cloth Folder for PFT testing, PCP to arrange for this * PCP in a week, patient to call Time Attestation Discharge Coordination Time (in mins): 35 Quality: Safe Use of Opioids Does Pt have an Active Cancer Diagnosis on the Problem List?: No Quality: Stroke Does the patient have a stroke diagnosis?: No Physical Exam Vital Signs: Vital Signs: Last Vital Signs Temp 97.4 F 08/23/23 07:50 Pulse 64 08/23/23 07:50 Resp 17 08/23/23 07:50 BP 162/88 H 08/23/23 07:50 Pulse Ox 99 08/23/23 07:50 O2 Del Method Room Air 08/23/23 07:50 BMI result Body Mass Index 38.4 DS: Data Data Completed and Pending Labs on day of discharge: Laboratory Results - last 24 hr 08/22/23 08/22/23 08/23/23 08:00 09:53 05:47 WBC 5.5 RBC 4.63 Hgb 13.7 Hct 41.6 MCV 89.8 MCH 29.6 MCHC 32.9 RDW 12.9 Plt Count 234 D MPV 10.3 Immature Gran % (Auto) 0.5 H Neut % (Auto) 51.7 Lymph % (Auto) 34.8 [place] % (Auto) 11.7 H Eos % (Auto) 1.1 Baso % (Auto) 0.2 Lymph # (Auto) 1.9 [place] # (Auto) 0.6 Eos # (Auto) 0.1 Baso # (Auto) 0.0 Abs Immat Gran (auto) 0.03 Absolute Neuts (auto) 2.8 Absolute Nucleated RBC 0.000 Nucleated RBC % (auto) 0.0 Sodium 142 Potassium 4.3 Chloride 108 Carbon Dioxide 25 Anion Gap 13 BUN 9 Creatinine 0.74 Estim Creat Clear Calc 105.3 Estimated GFR > 60 Random Glucose 90 Calcium 10.0 D Respiratory Panel Pina See Note Adenovirus (Rapid PCR) Not Detected B.pert (TEM-PCR) Not Detected B.parapertussis DNA PCR Not Detected C. pneumoniae DNA (PCR) Not Detected Coronavirus OC43 (PCR) Not Detected Coronavirus HKU1 (PCR) Not Detected Coronavirus 229E (PCR) Not Detected Coronavirus NL63 (PCR) Not Detected Human Metapneumovir PCR Detected A Influenza A (RT-PCR) Not Detected Influenza Type A (PCR) NEGATIVE Influenza B (RT-PCR) Not Detected Influenza Type B (PCR) NEGATIVE M. pneumoniae (PCR) Not Detected Parainfluenza 1 (PCR) Not Detected Parainfluenza 2 (PCR) Not Detected Parainfluenza 3 (PCR) Not Detected Parainfluenza 4 (PCR) Not Detected RSV (PCR) Not Detected RSV RNA Qual (PCR) NEGATIVE Entero/Rhino (PCR) Not Detected SARS-CoV-2 RNA (RT-PCR) NEGATIVE Not Detected Discharge Plan Discharge Anticipated Discharge Date/Time: 08/23/23 07:44 Patient Disposition: Home, Self-Care Discharge Diagnosis: Pneumonia, reactive airway disease Referrals: Shahida Trevizo MD [Primary Care Provider] - 1 Week Discharge Medications: New doxycycline hyclate 100 mg tablet 100 mg PO BID 6 Days Qty: 12 0RF prednisone 20 mg tablet 40 mg PO DAILY Qty: 6 0RF Continued diclofenac sodium 3 % gel 1 appl topical BID lithium carbonate 300 mg tablet extended release 600 mg PO BEDTIME liothyronine 5 mcg tablet 5 mcg PO BID levothyroxine 50 mcg tablet 50 mcg PO DAILY carisoprodol [Soma] 350 mg tablet 350 mg PO TID PRN (Reason: Pain) albuterol sulfate 90 mcg/actuation HFA aerosol inhaler 2 puff inhalation Q6H PRN (Reason: shortness of breath or wheezing) Qty: 8.5 0RF lurasidone [Latuda] 40 mg tablet 40 mg PO DAILY cholecalciferol (vitamin D3) 125 mcg (5,000 unit) capsule 125 mcg PO DAILY Discharge Orders: Discharge Order (Routine); Ordered 08/23/23 Ordered By: Pastor noelle Diet: Advance to usual diet Activity on Discharge: As tolerated Stand Alone Forms: Patient Portal Discharge page Print Language: Bahamian Care Plan Goals: recovery from pneumonia and reactive airway disease Health Concerns: pneumonia reactive airway diseasse Plan of Treatment: take Cefuroxime and doxycyline for pneumonia use inhalerss and Prednisone for reative airway follow up with your Doctor in a week, call for appointment Assessment: see above
[2023-08-23] MEDS: cefuroxime axetiL 500 MG TABLET PO (09:09)
--- NOTE | 2023-08-23 09:30 | MHC.CM.PN ---
PT LEFT WITHOUT BEING SEEN BY CM.
[2023-08-26 02:59] LABS: Strep Pneumo Ag urine Not Detected (Not Detected)
[2023-08-27 09:23] LABS: Legionella Ag Urine Not Detected (Not Detected)
== END 2023-08-23 09:34 | disposition home or self-care (01) ==
LOC: HO.ED 08:47 → HO.EDOVER 11:02 → HO.S3 11:52
PROVIDERS: Physician Assistant; Admitting Provider Physician Assistant; Emergency Provider Emergency Medicine; PCP Internal Medicine; Visit Provider Internal Medicine
DX: J18.9 Pneumonia, unspecified organism (principal); R09.02 Hypoxemia; R05.9 Cough, unspecified; R06.02 Shortness of breath; R53.83 Other fatigue; K21.9 Gastro-esophageal reflux disease without esophagitis; E03.9 Hypothyroidism, unspecified; F39 Unspecified mood [affective] disorder; Z03.818 Encounter for observation for suspected exposure to other biological agents ruled out
CPT/HCPCS: 0241U; 36415; 71045; 80048; 80053; 83605; 83735; 83880; 85025; 85610; 87040; 87449; 87633; 87899; 94640; 96365; 96366; 96375; 96376; 99221; 99285; J1100; J1956; J2919

== ENCOUNTER → 2023-08-22 10:36 | Outpatient (BNV) | payer MEDICARE, MEDICAID, SELFPAY | PROVIDERS: Admitting Provider Physician Assistant; Emergency Provider Emergency Medicine; PCP Internal Medicine; Visit Provider Physician Assistant | DX: J40 Bronchitis, not specified as acute or chronic (principal) | CPT/HCPCS: 99223; 99239 ==

== ENCOUNTER 2023-09-06 16:49 | Outpatient (AMB) | payer MEDICARE, MEDICAID, SELFPAY ==
--- NOTE | 2023-09-06 16:50 | A.OFFPC_ITS ---
Vital Signs 09/06/23 16:51 Height 5 ft 9 in Weight 251 lb BMI 37.1 BP 122/86 Blood Pressure Location Lt brachial Position Sitting Intake Visit Reasons: thyroid Intake Note: Patient here for a follow up thyroid, HMG follow up Pneumonia Care Connector Required: No Accompanied by: Self / Same As Patient Allergies amoxicillin [Amoxicillin] Allergy (Severe, Verified 09/06/23 17:02) HIVES, swelling nickel Allergy (Mild, Verified 09/06/23 17:02) Unknown Medication List - Last Reconciled 09/06/23 by Shahida Graham MD cholecalciferol (vitamin D3) 125 mcg PO DAILY diclofenac sodium 3% 1 appl topical BID fluconazole 150 mg PO Q3D 2 doses levothyroxine 50 mcg PO DAILY liothyronine 5 mcg PO BID lurasidone (Latuda) 40 mg PO DAILY semaglutide 0.5 mg subcut QWEEK Tobacco use date assessed: 03/03/23 Fall risk assessment: 1 Fall in past year Last assessed Fall Risk: 09/06/23 Dental Screening Dental Screen Date: 03/03/23 HPI HPI Comments History of Present Illness Details This is a 63-year-old female with hypothyroidism, low vitamin-D, bipolar disorder and obesity that comes today complaining of vaginal discharge and itchiness that started after taking antibiotics. Last TSH was normal. On vitamin-D supplements for her low vitamin-D. Bipolar disorder well controlled with Latuda and this is follow by Psychiatry. She is obese with a BMI of 37.1 and is on semaglutide prescribed by Cardiology. Denies any chest pain or shortness on breath. No abdominal pain. [facility] Medical History (Updated 09/06/23 @ 17:25 by Shahida Graham MD) Severe obesity (BMI 35.0-35.9 with comorbidity) [place] toxicity Morbid obesity Polyarthralgia LLQ abdominal pain Chronic diarrhea Adult general medical exam Screening for diabetes mellitus Screening for colon cancer Screening for breast cancer Post-menopausal Depression Left hip pain Left shoulder pain Slurred speech Left lateral abdominal pain Urinary incontinence Osteomyelitis Weight gain Abdominal muscle strain Marginal ulcer Bipolar disorder Anemia ADHD PTSD (post-traumatic stress disorder) Back pain DDD (degenerative disc disease) SOB (shortness of breath) Upper back pain on left side Dizziness Hx of small bowel obstruction Right rotator cuff tear Iron deficiency anemia Obesity GERD (gastroesophageal reflux disease) Hypercholesterolemia Anxiety and depression Osteoarthritis Lumbar disc herniation Surgical History History of endoscopy History of esophagogastroduodenoscopy (EGD) Hx of colonoscopy History of adjustable gastric banding History of removal of laparoscopic gastric banding device Hx of section S/P panniculectomy Hx of laparoscopic gastric banding Hx of laminectomy Hx laparoscopic cholecystectomy History of Theo-en-Y gastric bypass Hx of tonsillectomy Family History Father HTN (hypertension) DM (diabetes mellitus) Bladder cancer Prostate cancer Hyperlipidemia Mother Thyroid nodule Brother No problems noted. Sister No problems noted. Son No problems noted. Daughter No problems noted. Social History Household Members: Spouse and Children Household Members Other:: dog and cat Housing: House Do you presently have visiting nurse or other home services: No Alcohol intake: never Patient Tobacco Use Status: Never used Tobacco e-Cigarette/Vaping Use: Never Used Second Hand Smoke Exposure: No Substance Use Type: Opiates Advance Directives Date on File: 02/10/21 service: No Current occupational status: disabled Sexual orientation: Straight/Heterosexual Cognitive needs: No Hearing needs: No Vision needs: Yes Questionnaire Thrive Questionnaire Date Thrive assessed: 03/03/23 GILDA-7 AMB Questionnaire GILDA-7 Date GILDA - 7 assessed: 03/03/23 Source: Developed by Drs. Nav Faust, July Contreras, Horacio Rudolph and colleagues, with an educational mustapha from [employer]. Review of Systems Const All systems reviewed & are unremarkable except as noted in HPI and below Card Denies chest pain at rest, Denies chest pain with activity, Denies edema, Denies irregular heart rhythm, Denies claudication, Denies dyspnea, Denies dyspnea on exertion, Denies orthopnea, Denies paroxysmal nocturnal dyspnea and Denies slow heart rate Resp Denies cough, Denies dyspnea and Denies dyspnea on exertion GI Denies abdominal pain, Denies change in bowel habits, Denies excessive flatus, Denies nausea and Denies vomiting Denies urinary incontinence, Denies urinary hesitancy and Denies urinary urgency Physical exam (Primary Care) Vital Signs: Last Vital Signs BP 122/86 09/06/23 16:51 BMI result Body Mass Index 37.1 Tobacco/Smoking Status: Tobacco use Status Tobacco use date assessed 03/03/23 09/06/23 16:50 Patient Tobacco Use Status Never used Tobacco 09/06/23 16:50 e-Cigarette/Vaping Use Never Used 09/06/23 16:50 Thrive Assessment: Date of Thrive Assessment Date Thrive assessed 03/03/23 09/06/23 16:50 Resp Effort & Inspection: normal respiratory effort Auscultation: clear to auscultation bilaterally Cardio Jugular venous distension: no JVD Rate: regular rate Rhythm: regular rhythm Heart sounds: S1 normal heart sound present and S2 normal heart sound present Extrem General: Yes full ROM Assessment and Plan Assessment & Plan (1) Hypothyroid: Code(s): E03.9 - Hypothyroidism, unspecified Qualifiers: Hypothyroidism type: acquired Qualified Code(s): E03.9 - Hypothyroidism, unspecified Plan: Continue levothyroxine and liothyronine. Monitor TSH. (2) Low vitamin D level: Code(s): R79.89 - Other specified abnormal findings of blood chemistry Plan: Continue vitamin-D supplements. (3) Bipolar disorder: Comment: Dony psychaitry Code(s): F31.9 - Bipolar disorder, unspecified Qualifiers: Active/Remission status: in remission of unspecified degree Qualified Code(s): F31.70 - Bipolar disorder, currently in remission, most recent episode unspecified Plan: Continue Latuda. Follow-up with psychiatry. (4) Class 2 obesity with body mass index (BMI) of 37.0 to 37.9 in adult: Code(s): E66.9 - Obesity, unspecified; Z68.37 - Body mass index [BMI] 37.0-37.9, adult Qualifiers: Obesity type: due to excess calories Serious obesity comorbidity presence: with serious comorbidity Qualified Code(s): E66.01 - Morbid (severe) obesity due to excess calories; Z68.37 - Body mass index [BMI] 37.0-37.9, adult Plan: Continue semaglutide. BMI goal is less than 30. (5) Vaginal candidiasis: Code(s): B37.31 - Acute candidiasis of vulva and vagina Plan: Start fluconazole. Orders: Orders Thyroid Stimulating Hormone 4 Months E03.9 - Hypothyroidism, unspecified Medications: New fluconazole 150 mg PO Q3D 2 tabs 0RF Coding Level of Care Code Est Pt Level 4 (20762) Complex EM visit Add On G2211 Diagnoses Acquired hypothyroidism E03.9 Hypothyroidism type: acquired Low vitamin D level R79.89 Bipolar affective disorder in remission F31.70 Active/Remission status: in remission of unspecified degree Class 2 severe obesity due to excess calories with serious comorbidity and body mass index (BMI) of 37.0 to 37.9 in adult E66.01; Z68.37 Obesity type: due to excess calories Serious obesity comorbidity presence: with serious comorbidity Vaginal candidiasis B37.31 Time Spent (min) 24
[2023-09-06 16:51] VITALS: BP 122/86; BMI 37.1
== END 2023-09-06 17:20 | disposition home or self-care (01) ==
PROVIDERS: Visit Provider Internal Medicine
DX: E03.9 Hypothyroidism, unspecified (principal); F31.70 Bipolar disorder, currently in remission, most recent episode unspecified; E66.01 Morbid (severe) obesity due to excess calories; Z68.37 Body mass index [BMI] 37.0-37.9, adult; R79.89 Other specified abnormal findings of blood chemistry; B37.31 Acute candidiasis of vulva and vagina
CPT/HCPCS: 99214; G2211

== ENCOUNTER 2023-09-19 12:10 | Outpatient (REF) | payer MEDICARE, OTHER, SELFPAY ==
[2023-09-19 13:16] LABS: Anion Gap 10 (12-20); Blood Urea Nitrogen 11 mg/dL (9-16); Calcium 9.6 mg/dL (8.4-10.2); Carbon Dioxide 26 mmol/L (22-29); Chloride 107 mmol/L (96-108); Estimated Glomerular Filt Rate > 60; Glucose Random 93 mg/dL (60-115); Potassium 4.2 mmol/L (3.3-5.1); Sodium 139 mmol/L (135-145)
[2023-09-19 13:41] LABS: T4 Thyroxine 6.3 ug/dL (4.5-12.0); Thyroid Stimulating Hormone 1.54 uIU/mL (0.32-4.0)
[2023-09-20 10:08] LABS: Triiodothyronine T3 Free 3.9 pg/mL (2.3-4.2); Triiodothyronine T3 Total 140 ng/dL (76-181)
[2023-09-23 06:09] LABS: NT-proBNP <36 pg/mL (<125)
[2023-09-24 16:14] LABS: Triiodothyronine T3 Reverse 12 ng/dL (8-25)
== END 2023-09-19 12:11 | disposition home or self-care (01) ==
LOC: HO.LAB 12:10
PROVIDERS: Absent Provider Internal Medicine Cardiovascular Disease; PCP Internal Medicine; Visit Provider Psychiatry & Neurology Psychiatry
DX: E03.9 Hypothyroidism, unspecified (principal); E07.81 Sick-euthyroid syndrome; R06.09 Other forms of dyspnea
CPT/HCPCS: 36415; 80048; 83880; 84436; 84439; 84443; 84480; 84481; 84482

== ENCOUNTER 2023-10-21 12:48 | Outpatient (AMB) | payer MEDICARE, MEDICAID, SELFPAY ==
--- NOTE | 2023-10-21 12:53 | MHC.OFFVIS ---
Vital Signs 10/21/23 12:57 Height 5 ft 9 in Weight 249 lb BMI 36.8 BP 120/77 Blood Pressure Location Lt brachial Position Sitting Pulse 101 H Intake Visit Reasons: s/p colon Intake Note: Norma presents in the office as a follow up colonoscopy. CC: states that she has all the stuff that she had prior to the colonoscopy. 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 Recap: Patient was seen in our office in April 2021 (Amparo Schwarz) for chief complaint of nausea and diarrhea. She underwent an upper endoscopy, (see details in procedure note 10/01) but essentially had a 7 cm pouch without any GJ anastomotic stricture or anastomotic ulcer. Biopsies negative for H pylori. Colonoscopy was poor prep especially in the right colon. Had 7 polyps all tubular adenomas. 11/02/21: Patient has persistent intermittent left abdominal pain. States then often associated with nausea and dry heaves. Had another episode yesterday as well, which was associated with inability to tolerate p.o. intake. She reverted herself to NPO status, and this morning felt a bit better to have some breakfast. Also describes multiple episodes of scant liquid bowel movements with urgency. Had been taking p.r.n. Imodium for diarrhea . She denies any difficulty swallowing, unintentional weight loss-in fact is quite concerned about the weight gain that she has had. No fevers or chills. She has had multiple admissions for partial SBOs at [facility] and [facility] in the past 2-3 years. Conservatively managed. Patient is status post Theo-en-Y gastric bypass. She is on oral multivitamin supplements, as well as gets B12 injections monthly. Recent folate, B12, and vitamin-D results reviewed. Surgical hx: C section x 2 - 1992, 1998 RYGB - 2001 (Dr Price @ [facility]) Laproscopic TEDDY - 2009 ([facility]) Lap gastric band placement - 2014 (Dr Bello @ [facility]) Lap aldair - 2016 (Dr Bello @ [facility]) Lap gastric band removal (due to slippage) - 2018 (Dr Bello @ [facility]) Procedure Hx: Colonoscopy - 2009 (Dr Adriana Cuello) Intra-op EGD - 2017 (Dr Bello @ [facility]) Colonoscopy - 2019 - incomplete due to poor prep (Dr Jammie Byrd) 05/2022: Impression: 1. Normal colon and terminal ileum mucosa 2. Internal hemorrhoids Recommendations: - Repeat colonoscopy in 3-5 years due to x7 adenomas in 2021. 11/24/22: Comes in for follow up after abnormal CT scan. Reports that had been doing well since her colonoscopy. Was seen by Dr De La Cruz was second opinion on RYGB and underwent what sounds like TORe based on her description. 2 months after this procedure, she developed insiduous onset of left sided abd pain which is well localised and present every day and starts as soon as she wakes up. Does not change with food, type of food defecation. Also associated with nausea and diarrhea. Was having 4 loose stools/ day with urgency. Has been taking peptobismol which has led to formed stool for the past month. Sometimes will also take imodium mira if going out. Given her abd sx her PCP ordered a CT scan of abd/pel which showed ascending colon thickening for which she has been referred to our office. 03/23/23: Seen by her bariatric surgeon Dr De La Cruz after UGIS who did not recommend any further surgical or medical interventions. Pt herself does not have any swallowing discomfort despite suspicion of tight cricopharyngeus on UGIS. In addition, diarrhea is persistent. CT scan showed ? ascending colon wall thickening for which she is due for a diagnostic colonoscopy. 05/17/23: EGD/colo Impression: Schatzki's ring Cricopharyngeal narrowing Normal gastric mucosa. 8 cm gastric pouch. Normal jejunum Normal colon and terminal ileum mucosa (biopsy) Total of 2 polyps removed Internal and external hemorrhoids Recommendations Follow biopsy results. Our office will call or send a letter with results within 7-10 days. Avoid NSAIDs and smoking. Repeat colonoscopy in 3-5 years due to x7 adenomas in 2021. Path: A. Colon, cecal polyp: Tubular adenoma; negative for high-grade dysplasia and carcinoma. B. Colon, right side, biopsy: Colonic mucosa with minor crypt distortion, focal lamina propria hemorrhage, and lymphoid aggregate, otherwise no specific change; no evidence of colitis, granulomas or dysplasia. C. Colon, left, biopsy: Colonic mucosa with minor crypt distortion and lymphoid aggregates, otherwise no specific change; no evidence of colitis, granulomas or dysplasia. D. Colon, descending, polyp: Tubular adenoma; negative for high-grade dysplasia and carcinoma 10/21/23: Comes in for follow-up. Reports persistent diarrhea mira within 1 hour of eating anything. Moreso with carb heavy or fatty foods. Results of EGD/colo reviewed with the pt. Of note - pt also had at least 3 episodes of PNA this summer. Has seen pulm and undergone PFTs which are reportedly normal. Has never seen beam doffer. Pt tells me has some kind of resp illness at least once in winter time. [facility] Medical History Severe obesity (BMI 35.0-35.9 with comorbidity) [place] toxicity Morbid obesity Polyarthralgia LLQ abdominal pain Chronic diarrhea Adult general medical exam Screening for diabetes mellitus Screening for colon cancer Screening for breast cancer Post-menopausal Depression Left hip pain Left shoulder pain Slurred speech Left lateral abdominal pain Urinary incontinence Osteomyelitis Weight gain Abdominal muscle strain Marginal ulcer Bipolar disorder Anemia ADHD PTSD (post-traumatic stress disorder) Back pain DDD (degenerative disc disease) SOB (shortness of breath) Upper back pain on left side Dizziness Hx of small bowel obstruction Right rotator cuff tear Iron deficiency anemia Obesity GERD (gastroesophageal reflux disease) Hypercholesterolemia Anxiety and depression Osteoarthritis Lumbar disc herniation Surgical History History of endoscopy History of esophagogastroduodenoscopy (EGD) Hx of colonoscopy History of adjustable gastric banding History of removal of laparoscopic gastric banding device Hx of section S/P panniculectomy Hx of laparoscopic gastric banding Hx of laminectomy Hx laparoscopic cholecystectomy History of Theo-en-Y gastric bypass Hx of tonsillectomy Family History Father HTN (hypertension) DM (diabetes mellitus) Bladder cancer Prostate cancer Hyperlipidemia Mother Thyroid nodule Brother No problems noted. Sister No problems noted. Son No problems noted. Daughter No problems noted. Social History Household Members: Spouse and Children Household Members Other:: dog and cat Housing: House Do you presently have visiting nurse or other home services: No Alcohol intake: never Patient Tobacco Use Status: Never used Tobacco e-Cigarette/Vaping Use: Never Used Second Hand Smoke Exposure: No Substance Use Type: Opiates Advance Directives Date on File: 02/10/21 service: No Current occupational status: disabled Sexual orientation: Straight/Heterosexual Cognitive needs: No Hearing needs: No Vision needs: Yes Review of Systems Const All systems reviewed & are unremarkable except as noted in HPI and below Physical Exam Vital Signs: Last Vital Signs Pulse 101 H 10/21/23 12:57 BP 120/77 10/21/23 12:57 BMI result Body Mass Index 36.8 No apparent distress Nonicteric Alert and oriented x3, normal gait Assessment & Plan Assessment & Plan (1) Small intestinal bacterial overgrowth: Code(s): K63.8219 - Small intestinal bacterial overgrowth, unspecified Category: Medical (2) Diarrhea: Code(s): R19.7 - Diarrhea, unspecified Category: Medical (3) History of Theo-en-Y gastric bypass: Comment: 2002 Code(s): Z98.84 - Bariatric surgery status Category: Surgical Plan Reviewed with the pt that does not appear to have an inflammatory, infectious or neoplastic cause of diarrhea. Most likely 2/2 bowel habit alteration folloowing bariatric surgery which is not uncommon. This can be caused by SIBO vs EPI vs BAM. Plan: - Stool studies for ? EPI - Rifaximin 550 TID trial x 14 days - Pt also due for ADEK check due to RYGB status - Based on response to rifaximin, can consider cycling vs empiric tx for BAM - Pt to call office/msg on portal for persistent sx - Next colo in 2026 - She was also encouraged to discuss immunology referral with PCP given frequent URIs Orders: Orders Chymotrypsin, Stool Today R19.7 - Diarrhea, unspecified Vitamin A Today R19.7 - Diarrhea, unspecified Prothrombin Time INR Today R19.7 - Diarrhea, unspecified Vitamin E Today R19.7 - Diarrhea, unspecified Pancreatic Elastase-1 Today R19.7 - Diarrhea, unspecified Vitamin D 25-OH Total Today R19.7 - Diarrhea, unspecified Medications: New rifaximin 550 mg PO TID 14 days 42 tabs 0RF K63.8219 - Small intestinal bacterial overgrowth, unspecified Coding Level of Care Code Est Pt Level 4 (74901) Diagnoses Small intestinal bacterial overgrowth K63.8219 Diarrhea R19.7 History of Theo-en-Y gastric bypass Z98.84
[2023-10-21 12:57] VITALS: BP 120/77; PULSE 101; BMI 36.8
== END 2023-10-21 13:34 | disposition home or self-care (01) ==
PROVIDERS: PCP Internal Medicine; Visit Provider Internal Medicine
DX: K63.8219 Small intestinal bacterial overgrowth, unspecified (principal); R19.7 Diarrhea, unspecified; Z98.84 Bariatric surgery status
CPT/HCPCS: 99214

== ENCOUNTER → 2023-10-21 12:48 | Outpatient (BNVA) | payer MEDICARE, OTHER, SELFPAY | PROVIDERS: PCP Internal Medicine; Visit Provider Internal Medicine | DX: K63.8219 Small intestinal bacterial overgrowth, unspecified (principal); R19.7 Diarrhea, unspecified; E66.9 Obesity, unspecified; Z98.84 Bariatric surgery status; Z68.36 Body mass index [BMI] 36.0-36.9, adult | CPT/HCPCS: 99212 ==

== ENCOUNTER 2023-10-27 14:55 | Outpatient (REF) | payer MEDICARE, MEDICAID, SELFPAY ==
[2023-10-27 15:49] LABS: INTERNATIONAL NORM RATIO 0.9 (0.9-1.1); Prothrombin Time 11.4 SEC (11.1-13.3)
[2023-10-27 16:42] LABS: Vitamin D 25-OH Total 47.8 ng/mL (>30)
[2023-11-01 02:38] LABS: Alpha-Tocopherol 14.8 mg/L (5.7-19.9); Beta-Gamma Tocopherol 2.3 mg/L (<=4.3)
[2023-11-01 02:48] LABS: Vitamin A 61 mcg/dL (38-98)
[2023-11-04 01:07] LABS: Chymotrypsin, Stool 6.4 U/g (2.3-51.4)
[2023-11-08 01:59] LABS: Pancreatic Elastase-1 421 mcg/g
== END 2023-10-27 14:56 | disposition home or self-care (01) ==
LOC: HO.LAB 14:55
PROVIDERS: PCP Internal Medicine; Visit Provider Internal Medicine
DX: R19.7 Diarrhea, unspecified (principal)
CPT/HCPCS: 36415; 82306; 82656; 84446; 84590; 85610

== ENCOUNTER 2023-12-27 08:22 | Outpatient (REF) | payer MEDICARE, MEDICAID, SELFPAY ==
[2023-12-27 09:46] LABS: Alanine Aminotransferase 8 U/L (0-31); Alkaline Phosphatase 116 U/L (39-117); Anion Gap 13 (12-20); Aspartate Amino Transferase 15 U/L (5-31); Bilirubin Total 0.9 mg/dL (0.0-1.0); Blood Urea Nitrogen 13 mg/dL (9-16); Carbon Dioxide 27 mmol/L (22-29); Chloride 105 mmol/L (96-108); Cholesterol 242 mg/dL (<200); Estimated Glomerular Filt Rate > 60; Glucose Fasting 94 mg/dL (60-99); HDL Cholesterol 63 mg/dL (>40); LDL Cholesterol Calculated 143 mg/dL (<100); Potassium 4.6 mmol/L (3.3-5.1); Sodium 140 mmol/L (135-145); Thyroid Stimulating Hormone 2.11 uIU/mL (0.32-4.0); Total Protein 7.1 g/dL (6.5-8.0); Triglycerides 184 mg/dL (<150); Vitamin D 25-OH Total 52.9 ng/mL (>30)
== END 2023-12-27 08:23 | disposition home or self-care (01) ==
LOC: HO.LAB 08:22
PROVIDERS: PCP Internal Medicine; Visit Provider Internal Medicine
DX: E03.9 Hypothyroidism, unspecified (principal); E78.5 Hyperlipidemia, unspecified; R73.01 Impaired fasting glucose; E55.9 Vitamin D deficiency, unspecified
CPT/HCPCS: 36415; 80053; 80061; 82306; 84443

== ENCOUNTER 2024-01-04 16:19 | Outpatient (AMB) | payer MEDICARE, MEDICAID, SELFPAY ==
[2024-01-04 16:25] VITALS: BP 136/82; BMI 36.5
--- NOTE | 2024-01-04 16:25 | A.OFFPC_ITS ---
Vital Signs 01/04/24 16:25 Height 5 ft 9 in Weight 247 lb BMI 36.5 BP 136/82 Blood Pressure Location Lt brachial Position Sitting Intake Visit Reasons: thyroid Intake Note: Patient here for a follow up Thyroid Trim Operator Required: No Accompanied by: Self / Same As Patient Allergies amoxicillin [Amoxicillin] Allergy (Severe, Verified 01/04/24 16:40) HIVES, swelling nickel Allergy (Mild, Verified 01/04/24 16:40) Unknown Medication List - Last Reconciled 01/04/24 by Shahida Graham MD cholecalciferol (vitamin D3) 125 mcg PO DAILY cholestyramine (with sugar) 4 gram 4 grams PO BID PRN 30 days cyclobenzaprine 10 mg PO BID PRN diclofenac sodium 3% 1 appl topical BID gabapentin mg PO levothyroxine 50 mcg PO DAILY liothyronine 5 mcg PO BID lurasidone (Latuda) 40 mg PO DAILY semaglutide (weight loss) (Wegovy) 2.4 mg subcut QWEEK Tobacco use date assessed: 03/03/23 Fall risk assessment: No Falls in past year Last assessed Fall Risk: 01/04/24 Dental Screening Dental Screen Date: 01/04/24 Did you have a dental visit in the last 12 months?: Yes Did you have a dental problem in the last 6 months where you did not have access to dental care?: No Was dental information given to patient?: Patient has dentist HPI HPI Comments History of Present Illness Details This is a 63-year-old female with hypothyroidism, bipolar disorder, hypercholesterolemia and low vitamin-D that comes today for follow-up on her conditions. TSH normal. Vitamin-D normal supplements. Bipolar disorder well controlled with medications and follow by Psychiatry. Has elevated cholesterol but her [place] risk score is 3% risk of having a heart attack or stroke in the next 9 year therefore statins are not indicated. She has been intentionally losing weight with semaglutide prescribed by Cardiology. No chest pain or shortness on breath. [facility] Medical History Severe obesity (BMI 35.0-35.9 with comorbidity) [place] toxicity Morbid obesity Polyarthralgia LLQ abdominal pain Chronic diarrhea Adult general medical exam Screening for diabetes mellitus Screening for colon cancer Screening for breast cancer Post-menopausal Depression Left hip pain Left shoulder pain Slurred speech Left lateral abdominal pain Urinary incontinence Osteomyelitis Weight gain Abdominal muscle strain Marginal ulcer Bipolar disorder Anemia ADHD PTSD (post-traumatic stress disorder) Back pain DDD (degenerative disc disease) SOB (shortness of breath) Upper back pain on left side Dizziness Hx of small bowel obstruction Right rotator cuff tear Iron deficiency anemia Obesity GERD (gastroesophageal reflux disease) Hypercholesterolemia Anxiety and depression Osteoarthritis Lumbar disc herniation Surgical History History of endoscopy History of esophagogastroduodenoscopy (EGD) Hx of colonoscopy History of adjustable gastric banding History of removal of laparoscopic gastric banding device Hx of section S/P panniculectomy Hx of laparoscopic gastric banding Hx of laminectomy Hx laparoscopic cholecystectomy History of Theo-en-Y gastric bypass Hx of tonsillectomy Family History Father HTN (hypertension) DM (diabetes mellitus) Bladder cancer Prostate cancer Hyperlipidemia Mother Thyroid nodule Brother No problems noted. Sister No problems noted. Son No problems noted. Daughter No problems noted. Social History Household Members: Spouse and Children Household Members Other:: dog and cat Housing: House Do you presently have visiting nurse or other home services: No Alcohol intake: never Patient Tobacco Use Status: Never used Tobacco e-Cigarette/Vaping Use: Never Used Second Hand Smoke Exposure: No Substance Use Type: Opiates Advance Directives Date on File: 02/10/21 service: No Current occupational status: disabled Sexual orientation: Straight/Heterosexual Cognitive needs: No Hearing needs: No Vision needs: Yes Questionnaire Thrive Questionnaire Date Thrive assessed: 03/03/23 GILDA-7 AMB Questionnaire GILDA-7 Date GILDA - 7 assessed: 03/03/23 Source: Developed by Drs. Nav Faust, July Contreras, Horacio Rudolph and colleagues, with an educational mustapha from [employer]. Review of Systems Const All systems reviewed & are unremarkable except as noted in HPI and below Card Denies chest pain at rest, Denies chest pain with activity, Denies edema, Denies irregular heart rhythm, Denies claudication, Denies dyspnea, Denies dyspnea on exertion, Denies orthopnea, Denies paroxysmal nocturnal dyspnea and Denies slow heart rate Resp Denies cough, Denies dyspnea and Denies dyspnea on exertion Florencio/Lymph Denies easy bleeding and Denies easy bruising Aller/Immun Denies urticaria Physical exam (Primary Care) Vital Signs: Last Vital Signs BP 136/82 01/04/24 16:25 BMI result Body Mass Index 36.5 BMI Assessment/Plan discussion: High BMI High, discussed plan: lifestyle, weight reduction, dietary and physical activity Tobacco/Smoking Status: Tobacco use Status Tobacco use date assessed 03/03/23 01/04/24 16:29 Patient Tobacco Use Status Never used Tobacco 01/04/24 16:29 e-Cigarette/Vaping Use Never Used 01/04/24 16:29 Thrive Assessment: Date of Thrive Assessment Date Thrive assessed 03/03/23 01/04/24 16:29 Resp Effort & Inspection: normal respiratory effort Auscultation: clear to auscultation bilaterally Cardio Jugular venous distension: no JVD Rate: regular rate Rhythm: regular rhythm Heart sounds: S1 normal heart sound present and S2 normal heart sound present Extrem General: Yes full ROM Coding Level of Care Code Est Pt Level 4 (02791) Complex EM visit Add On G2211 Diagnoses Acquired hypothyroidism E03.9 Hypothyroidism type: acquired Low vitamin D level R79.89 Bipolar affective disorder in remission F31.70 Active/Remission status: in remission of unspecified degree Hypercholesterolemia E78.00 Time Spent (min) 23 Assessment & Plan Assessment & Plan (1) Hypothyroid: Code(s): E03.9 - Hypothyroidism, unspecified Category: Medical Qualifiers: Hypothyroidism type: acquired Qualified Code(s): E03.9 - Hypothyroidism, unspecified Plan: Continue levothyroxine. (2) Low vitamin D level: Code(s): R79.89 - Other specified abnormal findings of blood chemistry Category: Medical Plan: Continue vitamin-D supplements (3) Bipolar disorder: Comment: Dony psychaitry Code(s): F31.9 - Bipolar disorder, unspecified Category: Medical Qualifiers: Active/Remission status: in remission of unspecified degree Qualified Code(s): F31.70 - Bipolar disorder, currently in remission, most recent episode unspecified Plan: Continue Latuda. Follow-up with psychiatry. (4) Hypercholesterolemia: Code(s): E78.00 - Pure hypercholesterolemia, unspecified Category: Medical Plan: Continue low-cholesterol diet. No need for statins. Orders: Orders Lipid Panel 6 Months E78.5 - Hyperlipidemia, unspecified Comprehensive Vincent. Panel Fast 6 Months E78.00 - Pure hypercholesterolemia, unspecified Vitamin D 25-OH Total 6 Months E55.9 - Vitamin D deficiency, unspecified Thyroid Stimulating Hormone 6 Months E03.9 - Hypothyroidism, unspecified
== END 2024-01-04 16:57 | disposition home or self-care (01) ==
PROVIDERS: PCP Internal Medicine; Visit Provider Internal Medicine
DX: E03.9 Hypothyroidism, unspecified (principal); R79.89 Other specified abnormal findings of blood chemistry; F31.70 Bipolar disorder, currently in remission, most recent episode unspecified; E78.00 Pure hypercholesterolemia, unspecified

== ENCOUNTER → 2024-01-04 16:19 | Outpatient (BNVA) | payer MEDICARE, MEDICAID, SELFPAY | PROVIDERS: PCP Internal Medicine; Visit Provider Internal Medicine | DX: E03.9 Hypothyroidism, unspecified (principal); R79.89 Other specified abnormal findings of blood chemistry; F31.70 Bipolar disorder, currently in remission, most recent episode unspecified; E78.00 Pure hypercholesterolemia, unspecified | CPT/HCPCS: 99212 ==

== ENCOUNTER 2024-03-08 09:22 | Outpatient (AMB) | payer MEDICARE, MEDICAID, SELFPAY ==
--- NOTE | 2024-03-08 09:36 | A.OFFVIS_ITS ---
Intake Visit Reasons: BLE pain and redness Intake Note: Patient presents for toe discoloration. States she has had red/purple discoloration for about a month. No pain, swelling or cramping. Allergies amoxicillin [Amoxicillin] Allergy (Severe, Verified 03/08/24 09:40) HIVES, swelling nickel Allergy (Mild, Verified 03/08/24 09:40) Unknown HPI HPI BLE pain and redness: Details: Norma, a pleasant 63-year-old female, is presenting today on a referral for bilateral lower extremity pain and redness. Complaints include pain, swelling of lower extremities, and heaviness of the lower extremities. It has been affecting their daily activities including walking and standing. It is noted more so in right leg. We reviewed her ultrasound from 2022 which revealed no venous insufficiency. She does state that she is getting mostly pain in her toes bilaterally, worse throughout the course of the day. She states the swelling gets worse during the course of the day as well. She has not paid attention enough to whether this occurs only in the wintertime or the summertime. Patient denies any previous venous surgery or injections. Patient denies any history of DVT/ PE. Patient denies any history of phlebitis. Trial of compression includes - elevation and compression stockings They now present for vascular evaluation regarding their varicose veins. [facility] Medical History (Updated 03/08/24 @ 10:51 by Amirah Qureshi PA-C) Varicose veins of right lower extremity with inflammation Severe obesity (BMI 35.0-35.9 with comorbidity) [place] toxicity Morbid obesity Polyarthralgia LLQ abdominal pain Chronic diarrhea Adult general medical exam Screening for diabetes mellitus Screening for colon cancer Screening for breast cancer Post-menopausal Depression Left hip pain Left shoulder pain Slurred speech Left lateral abdominal pain Urinary incontinence Osteomyelitis Weight gain Abdominal muscle strain Marginal ulcer Bipolar disorder Anemia ADHD PTSD (post-traumatic stress disorder) Back pain DDD (degenerative disc disease) SOB (shortness of breath) Upper back pain on left side Dizziness Hx of small bowel obstruction Right rotator cuff tear Iron deficiency anemia Obesity GERD (gastroesophageal reflux disease) Hypercholesterolemia Anxiety and depression Osteoarthritis Lumbar disc herniation Surgical History History of endoscopy History of esophagogastroduodenoscopy (EGD) Hx of colonoscopy History of adjustable gastric banding History of removal of laparoscopic gastric banding device Hx of section S/P panniculectomy Hx of laparoscopic gastric banding Hx of laminectomy Hx laparoscopic cholecystectomy History of Theo-en-Y gastric bypass Hx of tonsillectomy Family History Father HTN (hypertension) DM (diabetes mellitus) Bladder cancer Prostate cancer Hyperlipidemia Mother Thyroid nodule Brother No problems noted. Sister No problems noted. Son No problems noted. Daughter No problems noted. Social History Household Members: Spouse and Children Household Members Other:: dog and cat Housing: House Do you presently have visiting nurse or other home services: No Alcohol intake: never Patient Tobacco Use Status: Never used Tobacco e-Cigarette/Vaping Use: Never Used Second Hand Smoke Exposure: No Substance Use Type: Opiates Advance Directives Date on File: 02/10/21 service: No Current occupational status: disabled Sexual orientation: Straight/Heterosexual Cognitive needs: No Hearing needs: No Vision needs: Yes Review of Systems Const Reports as per HPI and Denies weakness ENT Reports Normal hearing present and Denies dizziness Card Reports as per HPI, Denies chest pain, Denies chest pain at rest, Denies chest pain with activity, Denies dyspnea and Denies dyspnea on exertion Resp Reports as per HPI, Denies cough, Denies dyspnea and Denies dyspnea on exertion GI Reports as per HPI, Denies abdominal pain, Denies nausea and Denies vomiting Musc Denies numbness Skin/Breast Reports as per HPI, Denies erythema and Denies wounds Neuro Reports Normal hearing present, Denies dizziness, Denies numbness, Denies Sensory deficit (Neuro) and Denies weakness Psych Reports no additional complaints Endo Reports no additional complaints Physical Exam Const General: healthy appearing and no acute distress Orientation/consciousness: patient oriented x3 HEENT Head: Yes normal to inspection Ears: hearing grossly normal bilaterally Mouth: Normal oral and palatal mucosa present Resp Effort & Inspection: normal respiratory effort and able to speak in complete sentences Auscultation: clear to auscultation bilaterally Cardio Jugular venous distension: no JVD Rate: regular rate Rhythm: regular rhythm Heart sounds: S1 normal heart sound present and S2 normal heart sound present Bruits: no abdominal aortic bruits, no carotid bruits, no femoral bruits and no renal bruits Peripheral pulses: Peripheral pulses 2+ throughout GI Inspection: Yes normal to inspection Palpation (GI): No Abdominal aortic bruit present Skin General skin exam: no rashes or lesions noted Wounds: no wounds Hair: normal Neuro General: patient oriented x3 Cranial nerves: Yes Normal hearing present Cognition (Neuro): normal cognition Gait exam (Neuro): Normal gait present Motor exam (neuro): 5/5 motor strength present throughout Sensory Exam: No Sensory deficit (Neuro) Extrem Other: Bilateral lower extremities: Discoloration noted in all her toes, the worse toe being the right 2nd toe. Trace peripheral edema noted. CEAP: C - 3/4 E - primary A - superficial P - reflux General: Yes normal to inspection, Yes full ROM, Yes capillary refill normal and Yes normal gait Assessment & Plan Assessment & Plan (1) Varicose veins of both lower extremities with inflammation: Code(s): I83.11 - Varicose veins of right lower extremity with inflammation; I83.12 - Varicose veins of left lower extremity with inflammation Category: Medical Plan: Miguelina presenting today for ongoing bilateral lower extremity swelling and pain and redness in her toes, has been lasting for approximately 1 month now. In short, the patient has evidence of venous insufficiency. I have discussed the pathophysiology with the patient. In addition I have provided informational material regarding venous disease to the patient. We have discussed conservative measures including compression, elevation, and exercise. The pt has been using compression stockings. I have taken the liberty of ordering venous insufficiency testing with the patient. They will follow up with me after testing. I did discuss with her to see if whether was a factor; she is going to [place] for 10 days starting tomorrow and it would be interesting to find out if the discoloration and pain continues, to rule out a Raynaud's phenomenon. The patient had an opportunity to ask questions regarding the treatment plan. All questions were answered. Imaging studies, laboratory studies and physical exam results were discussed and reviewed in detail. No major barriers to understanding were identified. The patient expressed understanding and agreement with the above treatment plan. The patient is aware they should contact our office by phone for worsening of the current condition or the appearance of new symptoms. Thank you for allowing me to participate in the vascular care of this patient. If you have any questions or concerns regarding the treatment for the above condition please do not hesitate to contact me. The office telephone contact is [phone]. This note is constructed using voice recognition software. While every effort has been made to ensure accuracy, hvac r tech errors may have been included. Thank you for allowing me to participate in the care of your patient. Yours sincerely, EFREN Alcaraz Orders: Orders US venous duplex LE BI 1 Week I83.11 - Varicose veins of right lower extremity with inflammation, I83.12 - Varicose veins of left lower extremity with inflammation Coding Level of Care Code Est Pt Level 4 (67879) Diagnoses Varicose veins of both lower extremities with inflammation I83.11; I83.12
--- OUTSIDE RECORDS SUMMARY | 2024-03-08 10:22 | XMS_ITS ---
Author Name [facility] Organization Unknown History of Medication Use Medication Directions Dispensed Refills Start Date End Date [facility] cyclobenzaprine 10 mg tablet TAKE 1 TABLET BY MOUTH EVERY 4 HOURS NEEDED FOR PAIN 03/03/2023 active pantoprazole 40 mg tablet,delayed release TAKE 1 TABLET BY MOUTH EVERY DAY 03/03/2023 active diclofenac 1 % topical gel APPLY 4 GM TOPICALLY 4 TIMES A DAY TO SINGLE KNEE, ANKLE, AND FOOT (SOLE, TOES, AND TOP OF FOOT) 03/03/2023 active cholecalciferol (vitamin D3) 125 mcg (5,000 unit) capsule TAKE 1 CAPSULE BY MOUTH EVERY DAY 03/03/2023 active zinc gluconate 30 mg tablet TAKE 1 TABLET BY MOUTH EVERY DAY 03/03/2023 active lorazepam 1 mg tablet TAKE HALF TO ONE TABLET ORALLY TWICE DAILY NEEDED FOR ANXIETY 03/03/2023 active oxycodone-acetaminophen 5 mg-325 mg tablet TAKE 1 TABLET BY MOUTH EVERY 6 HOURS NEEDED FOR PAIN 03/03/2023 active carisoprodol 350 mg tablet TAKE 1 TO 2 TABLETS BY MOUTH 4 TIMES A DAY NEEDED FOR PAIN 03/03/2023 active betamethasone dipropionate 0.05 % topical cream PLEASE SEE ATTACHED FOR DETAILED DIRECTIONS 03/03/2023 active Children's Acetaminophen 160 mg/5 mL oral liquid TAKE 20 ML BY MOUTH EVERY 6 HOURS FOR 3 DAYS 03/03/2023 active ciprofloxacin 500 mg tablet TAKE 1 TABLET BY MOUTH TWICE A DAY 03/03/2023 active oxycodone 5 mg tablet TAKE 1 TABLET BY MOUTH EVERY DAY NEEDED FOR PAIN 03/03/2023 active lithium carbonate ER 300 mg tablet,extended release TAKE 3 TABLETS BY MOUTH AT BEDTIME 03/03/2023 active diclofenac 3 % topical gel APPLY TO AFFECTED AREA 3 TIMES A DAY 03/03/2023 active methocarbamol 750 mg tablet TAKE 1 TABLET BY MOUTH EVERY 6 HOURS NEEDED FOR MUSCLE SPASM 03/03/2023 active GaviLyte-G 236 gram-22.74 gram-6.74 gram-5.86 gram oral solution PLEASE SEE ATTACHED FOR DETAILED DIRECTIONS 03/03/2023 active Kenalog 40 mg/mL suspension for injection Take 1 mL by injection route. 03/03/2023 active levothyroxine 75 mcg tablet TAKE 1 TABLET BY MOUTH EVERY DAY 03/03/2023 active lurasidone 60 mg tablet TAKE 1 TABLET BY MOUTH EVERYDAY AT BEDTIME 03/03/2023 active prednisone 20 mg tablet TAKE 2 TABLETS B Y MOUTH EVERY MORNING 03/03/2023 active gabapentin 300 mg capsule TAKE 1 CAPSULE BY MOUTH EVERY DAY AT NIGHT TIME 03/03/2023 active ondansetron 4 mg disintegrating tablet DISSOLVE 1 TABLET BY MOUTH EVERY 8 HOURS FOR NAUSEA 03/03/2023 active diazepam 5 mg tablet TAKE 1 TABLET BY MOUTH THREE TIMES A DAY 03/03/2023 active prednisone 10 mg tablet TAKE 4 TABS HERBER Y X3 DAYS, 3 TABS DAILY X3 DAYS, 2 TABS DAILY X3 DAYS, 1 TAB DAILY X3 DAYS 03/03/2023 active azithromycin 250 mg tablet TAKE 2 TABLETS BY MOUTH TODAY, THEN TAKE 1 TABLET DAILY FOR 4 DAYS DIRECTED 03/03/2023 active lidocaine (PF) 10 mg/mL (1 %) injection solution Take 2 mL by injection route. 03/03/2023 active lurasidone 40 mg tablet TAKE 1 TABLET BY MOUTH EVERYDAY AT BEDTIME 03/03/2023 active lorazepam 0.5 mg tablet TAKE 1-2 TABS UP TO TWICE DAILY NEEDED FOR ANXIETY 03/03/2023 active Allergies Allergen Reaction Severity Comment Documented Date Source Statu s NICKEL [facility] AMOXICILLIN [facility] Problems Problem Status Onset Date Problem Type Date of Resoluti on Source Secondary osteoarthritis active 2023-03-01 ProblemAct [facility] Arthritis of knee active 2023-03-04 ProblemAct [facility] Osteoarthritis of right knee joint active 2023-03-01 ProblemAct [facility]
== END 2024-03-08 09:58 | disposition home or self-care (01) ==
PROVIDERS: PCP Internal Medicine; Visit Provider Physician Assistant Surgical
DX: I83.11 Varicose veins of right lower extremity with inflammation (principal); I83.12 Varicose veins of left lower extremity with inflammation
CPT/HCPCS: 99214

== ENCOUNTER → 2024-03-08 09:22 | Outpatient (BNVA) | payer MEDICARE, MEDICAID, SELFPAY | PROVIDERS: PCP Internal Medicine; Visit Provider Physician Assistant Surgical | DX: I83.11 Varicose veins of right lower extremity with inflammation (principal); I83.12 Varicose veins of left lower extremity with inflammation | CPT/HCPCS: 99212 ==

== ENCOUNTER 2024-04-06 09:58 | Outpatient (REF) | payer MEDICARE, MEDICAID, SELFPAY ==
--- NOTE | ~2024-04-06 | US_ITS ---
EXAMINATION: US LOWER EXTREMITY VENOUS (REFLUX EXAM), BILATERAL CLINICAL INFORMATION: Varices COMPARISON: December 20, 2022 Doppler venous ultrasound. TECHNIQUE: Color flow triplex imaging and compression Doppler was performed to evaluate both the deep and the superficial systems bilaterally. To evaluate the superficial system, the examination was performed in the upright position. Color-flow Doppler ultrasound and compression ultrasound were utilized. In addition, maneuvers were utilized to demonstrate reflux. FINDINGS: 1. DEEP VENOUS ULTRASOUND OF THE RIGHT LOWER EXTREMITY: Common Femoral Vein: Compressible, normal respiratory variation and augmented flow. Femoral Vein: Compressible, normal color flow and augmentation. Popliteal Vein: Compressible, normal augmentation. Deep Reflux: There is no evidence of reflux in the deep system in either the common femoral vein, superficial femoral or the popliteal vein. There is no evidence of a Sexton's cyst. 2. SUPERFICIAL ULTRASOUND WITH DOPPLER OF RIGHT LOWER EXTREMITY: GREAT SAPHENOUS VEIN: Saphenofemoral Junction: 0.9 cm; Reflux: 0 ms Proximal Thigh: 0.5 cm; Reflux: 0 ms Mid Thigh: 0.5 cm; Reflux: 0 ms Distal Thigh: 0.4 cm; Reflux: 0 ms At Knee: 0.3 cm; Reflux: 0 ms Proximal Calf: 0.2 cm; Reflux: 0 ms Mid Calf: 0.2 cm; Reflux: 0 ms Distal Calf: 0.2 cm; Reflux: 0 ms DUPLICATED MEDIAL GREAT SAPHENOUS VEIN: Diameter: 0.4 cm. Reflux: NA DUPLICATED LATERAL GREAT SAPHENOUS VEIN: Diameter: None imaged Reflux: NA SMALL SAPHENOUS VEIN: Saphenopopliteal Junction: 0.3 cm; Reflux: 0 ms Proximal: 0.2 cm; Reflux: 0 ms Distal: 0.1 cm; Reflux: 0 ms VEIN OF GIACOMINI: Size: NA Reflux: NA PERFORATORS: Location: Great saphenous vein, mid and distal calf. Size: 0.2 cm. Reflux: NA VARICOSITIES: Location: Great saphenous vein, mid thigh. Size: 0.3 cm. Reflux: NA 3. DEEP VENOUS ULTRASOUND OF THE LEFT LOWER EXTREMITY: Common Femoral Vein: Compressible, normal respiratory variation and augmented flow. Femoral Vein: Compressible, normal color flow and augmentation. Popliteal Vein: Compressible, normal augmentation. Deep Reflux: There is no evidence of reflux in the deep system in either the common femoral vein, superficial femoral or the popliteal vein. There is no evidence of a Sexton's cyst. 4. SUPERFICIAL ULTRASOUND WITH DOPPLER OF LEFT LOWER EXTREMITY: GREAT SAPHENOUS VEIN: Saphenofemoral Junction: 0.4 cm; Reflux: 0 ms Proximal Thigh: 0.6 cm; Reflux: 0 ms Mid Thigh: 0.4 cm; Reflux: 0 ms Distal Thigh: 0.2 cm; Reflux: 0 ms At Knee: 0.4 cm; Reflux: 0 ms Proximal Calf: 0.2 cm; Reflux: 0 ms Mid Calf: 0.2 cm; Reflux: 0 ms Distal Calf: 0.3 cm; Reflux: 0 ms DUPLICATED MEDIAL GREAT SAPHENOUS VEIN: Diameter: None imaged Reflux: NA DUPLICATED LATERAL GREAT SAPHENOUS VEIN: Diameter: 0.3 cm. Reflux: NA SMALL SAPHENOUS VEIN: Saphenopopliteal Junction: 0.5 cm; Reflux: 0 ms Proximal: 0.3 cm; Reflux: 0 ms Distal: 0.2 cm; Reflux: 0 ms VEIN OF GIACOMINI: Size: NA Reflux: NA PERFORATORS: Location: Great saphenous vein, distal thigh and midcalf. Size: 0.2-0.4 cm. Reflux: NA VARICOSITIES: Location: None Imaged Size: NA Reflux: NA US/US venous insuf bilat IMPRESSION: Right: No venous insufficiency. Perforators and varices without reflux. Left: No venous insufficiency. Perforators distal thigh and midcalf without reflux Electronically signed by: Yosi Malin MD 04/10/2024 12:23 PM [facility]
--- OUTSIDE RECORDS SUMMARY | 2024-04-06 10:35 | XMS_ITS | Clinical Summary ---
Author Organization 175 [facility] Address [address] [place] [address] Phone Care Team Providers Care Construction Supervisor/Carpenter Name Role Phone Driss Santiago MD Primary Care Provider [phone] Allergies Active Allergy Reactions Criticality Noted Date Comments Amoxicillin 12/27/2023 Cefuroxime Itching 04/28/2017 Cephalosporins Itching 09/07/2017 Other Reaction(s): Other (See Comments) Medications levothyroxine (SYNTHROID, LEVOTHROID) 88 mcg tablet Take 1 Tablet by mouth daily. - Oral Active cholecalciferol , vitamin D3, (VITAMIN D3 ORAL) D3-50 1.25 MG (13185 UT) Cap TAKE 1 CAPSULE BY MOUTH ONCE WEEKLY Active calcium carbonate-vitam in D3 (Calcium 600 + D,3,) 600 mg-5 mcg (200 unit) per tablet 1 bid Active fluticasone furoate (Arnuity Ellipta) 100 mcg/actuation blister with device inhaler Inhale 1 puff by mouth 1 (one) time each day. Active Active Problems Problem Noted Date Diagnosed Date Depression 12/27/2023 Multilevel degenerative disc disease 12/27/2023 ADD (attention deficit disorder) 12/27/2023 Abdominal pannus 12/27/2023 Fungal rash of trunk 12/27/2023 Aspiration pneumonia 12/27/2023 Hypothyroidism 12/27/2023 Bipolar affective disorder 12/27/2023 Constipation 12/27/2023 Gassiness 12/27/2023 Epigastric pain 12/27/2023 Encounters Date Type Department Care Team Description 01/25/2024 8:45 AM EST Office Visit Pulmonolgy - [address] [place] [address] Angela Painter MD Aspiration pneumonia, unspecified aspiration pneumonia type, unspecified laterality, unspecified part of lung (CMS/HCC) (Primary Dx); Mild intermittent reactive airway disease without complication from Last 3 Months Immunizations Name Administration Dates Next Due Influenza trivalent, with pr eservative (Fluzone; Afluria) 6mo and older 02/07/2009 Influenza, live, intranasal, trivalent (FluMist) 2yo to less than 50yo 11/17/2012,12/03/2009,02/07/2009 Td Tetanus diptheria (Tdvax) 7yo and older 03/28 Surgical History Surgery Date Site/Laterality Comments GASTRIC BYPASS 2001 PROCEDURE: CO GASTRIC RSTCV W/BYP W/SM INT RCNSTJ LIMIT ABSRPJ COLONOSCOPY 09/09/08 PROCEDURE: HISTORICAL COLONOSCOPY; COMMENT: hemorrhoids; repeat in ten years OTHER SURGICAL HISTORY 02/25/2009 PROCEDURE: CO HYSTEROSCOPY LYSIS INTRAUTERINE ADHESIONS SECTION PROCEDURE: HISTORICAL DELIVERY; COMMENT: x 2 TONSILLECTOMY PROCEDURE: HISTORICAL TONSILLECTOMY; COMMENT: and Adenoidectomy OTHER SURGICAL HISTORY 08/08/2014 PROCEDURE: CO LAPS GASTRIC RESTRICTIVE PROCEDURE PLACE DEVICE; COMMENT: Dr Bello, took out in 2018 LUMBAR LAMINECTOMY PROCEDURE: HISTORICAL LUMB LAMINECTOMY OTHER SURGICAL HISTORY 2001 PROCEDURE: CO LAPS GSTR RSTCV PX W/BYP THEO-EN-Y LIMB <150 CM; COMMENT: Dr PRITCHETT Medical History Medical History Date Comments Backache, unspecified DX:Backach e, unspecified ADD (attention deficit disorder) 01/16/2007 DX:ADD (attention deficit disorder); COMMENT: Follows with [facility] Osteoarthritis of both knees 09/07/2017 DX: Osteoarthritis of both knees Depression 01/11/2005 DX:Depression Multilevel degenerative disc disease 01/11/2005 DX:Multilevel degenerative disc disease S/P gastric bypass 07/13/2001 DX:S/P gastri c bypass; COMMENT: Dr Pritchett- Theo-en y Constipation DX:Constipation Gassiness DX:Gassiness History of small bowel obstruction DX:History of small bowel obstruction; COMMENT: Partial noted on November 01, [address] Epigastric pain DX:Epigastric pa in Family History Medical History Relation Name Comments Hyperlipidemia Brother No Known Problems Daughter Prostate cancer Father age 74 Arthritis Mother Hyperlipidemia Sister No Known Problems Son Relation Name Status Comments Brother Alive Daughter Alive Father Mother Alive Sister Alive Son Alive Social History Tobacco Use Types Packs/Day Years Used Date Smoking Tobacco: Never Smokeless Tobacco: Never Alcohol Use Standard Drinks/Week Comments No 0 (1 standard drink = 0.6 oz pur e alcohol) Comments Unknown Sex and Gender Information Value Date Recorded Sex Assigned at Not on file Legal Sex Female 10:02 PM EST Gender Identity Not on file Sexual Orientation Not on file Obstetrics History Last Filed Vital Signs Vital Sign Reading Time Taken Comments Blood Pressure 104/70 01/25/2024 9:08 AM EST Pulse 106 01/25/2024 9:08 AM EST Temperature 36.2 ??C (97.2 ??F) 01/25/2024 9:08 AM ES T Respiratory Rate 16 01/25/2024 9:08 AM EST Oxygen Saturation 98% 01/25/2024 9:08 AM EST Inhaled Oxygen Concentration - - Weight 112 kg (247 lb) 01/25/2024 9:08 AM EST Height 175.3 cm (5' 9 ) 01/25/2024 9:08 AM EST Body Mass Index 36.48 01/25/2024 9:08 AM EST Plan of Treatment Health Maintenance Due Date Last Done Comments Breast Cancer Screening 1960 Pneumococcal Vaccine: 50+ Years (1 of 2 - PCV) 08/22/1978 Pneumococcal Vaccine: Pediatrics (0 to 5 Years) and At-Risk Patients (6 to 64 Years) (1 of 2 - PCV) 08/22/1978 Zoster Vaccines (1 of 2) 08/22/2009 Cervical Cancer Screening: Pap Smear 09/12/2012 09/12/2009, 09/12/2009 Depression Screening 01/29/2022 HIV Screening 01/29/2022 Hepatitis C Screening 01/29/2022 Medicare Annual Wellness Visit 01/29/2022 Social Influencers of Health Screening 01/29/2022 Cholesterol Screening (Lipid Panel) 12/03/2022 12/03/2017 COVID-19 Vaccine () 10/23/2023 01/27/2021, 05/14/2020, 04/22/2020 Colorectal Cancer Screening: Colonoscopy 03/09/2028 03/09/2018 DTaP,Tdap,and Td Vaccines (4 - Td or Tdap) 01/23/2030 01/24/2020, 06/02/2018, 03/28/2003 RSV Immunization Patients 60+ Years Old Completed 01/18/2023 Influenza Vaccine Completed 11/21/2023, , 11/27/2021, Additional history exists HIB Vaccines Aged Out No longer eligi ble based on patient's age to complete this topic HPV Vaccines Aged Out No longer eligi ble based on patient's age to complete this topic Hepatitis A Vaccines Aged Out No long er eligible based on patient's age to complete this topic Hepatitis B Vaccines Aged Out No long er eligible based on patient's age to complete this topic IPV Vaccines Aged Out No longer eligi ble based on patient's age to complete this topic MMR Vaccines Aged Out No longer eligi ble based on patient's age to complete this topic Meningococcal ACWY Vaccine Aged Out N o longer eligible based on patient's age to complete this topic Meningococcal B Vacine Aged Out No lo nger eligible based on patient's age to complete this topic RSV Immunization Patients Under 20 months Aged Out No longer eligible based on patient's age to complete this topic Varicella Vaccines Aged Out No longer eligible based on patient's age to complete this topic Procedures Procedure Name Priority Date/Time Associated Diagnosis Comments COLONOSCOPY Routine 03/09/2018 LIPID PANEL Routine 12/03/2017 HPV Routine 09/12/2009 from Last 3 Months or Most Recently Relevant to Health Maintenance Results * Colonoscopy (03/09/2018) Colonoscopy no interpretation , abstracted Anatomical Region Laterality Modality Other Historical Provider MD HEALTH MAINTENANCE Final Result * (ABNORMAL) Lipid panel (12/03/2017) LDL/HDL Ratio 2 0 - 4 Triglycerides 82 0 - 150 mg/dL Cholesterol 202(A) 0 - 200 mg/dL HDL 83 >=40 mg/dL LDL Cholesterol 103(A) 0 - 100 mg/dL Blood Venous blood specimen / Unknown Historical Provider LAB BLOOD ORDERABLES Shlely l Result * Cervical Cancer Screening: HPV (09/12/2009) Cervical Cancer Screening: HPV abstracted, negative Historical Provider HEALTH MAINTENANCE Final Result from Last 3 Months or Most Recently Relevant to Health Maintenance Insurance [facility] [place] [place] [id number] MEDICAID - [place] MEDICARE Care Teams Construction Supervisor/Carpenter Relationship Specialty Start Date End Date Driss Santiago MD [address] [place] [address] [address] [facility] [place] [address] PCP - General Internal Medicine 02/08/17
--- OUTSIDE RECORDS SUMMARY | 2024-04-06 10:35 | XMS_ITS | Patient Health Record ---
Author Organization [facility] [place] Address [address] [place] [address] Care Team Providers Care Emu Farm Worker Name Role Phone Driss Santiago Primary Care Provider Jonatan Goncalves Unavailable [phone] Allergies Allergen (clinical drug ingredient) Drug/Non Drug Allergy documented on EMR Reaction Allergy Type Onset Date Status amoxicillin Amoxicillin severe reaction Drug Allergy Active Reason For Referral No Information Medications Medication SIG (Take, Route, Fr equency, Duration) Notes Start Date End Date Status [place] Active Naproxen as needed Active Vitamin B 12 Active diazePAM 5 MG (Schedule IV Drug) Oral for 30 Active Multi Complete Activ e Synthroid Active LORazepam 1 MG (Schedule IV Drug) Oral for 30 Active Social History Tobacco Use: Social History Observation Description Date Details (start date - stop date) Never Smoker NA - NA Tobacco Use/Smoking Question Answer Notes Are you a: nonsmoker Additional Findings: Tobacco Non-User Aggressive non-smoker Alcohol Screen Question Answer Notes Did you have a drink containing alcohol in the p ast year? No Points 0 Interpretation Negative Tobacco use other than smoking: Question Answer Notes Are you an other tobacco user? No Plan Of Treatment Pending Test Test Name Order Date X ray : Foot, left 3V 10/31/2019 X ray : Foot, right 3V 10/31/2019 [id number] TENDON SHEATH/LIGAMENT 1 04/03/2019 Insurance Providers Payer Name Payer Address Payer Phone Subscriber Number Group Number Insured Name Patient Relationship to Insured Coverage Start Date Coverage End Date [employer] [address] [place] [address] [phone] [id number] DARIANA SHEA Spouse - patient is the spouse of the insured Medical (General) History Medical History History ICD Code Anemia Anxiety Back,Hip,and Knee pain Depression Numbness Psychiatric disorder raynauds disease thyroid Measles Mumps Chicken pox Surgical History Surgery Date(Month/Year) lumbar laminectomy 1986 section 1986 gastric bypass 2002 gall bladder 2016 T+A 1977
--- OUTSIDE RECORDS SUMMARY | 2024-04-06 10:35 | XMS_ITS | Clinical Summary ---
Author Organization [facility] Address [address] [place] [address] Care Team Providers Care Software Packager Name Role Phone Driss Santiago MD Primary Care Provider [phone] Allergies Active Allergy Reactions Criticality Noted Date Comments Amoxicillin Hives 03/18/2017 Cefuroxime Itching 04/28/2017 Cephalosporins Itching,Other (See Comments) Medications Medication Sig Dispensed Refills Start Date End Date Status lithium 600 MG capsule Take 600 mg by mouth. 0 Active traZODone (DESYREL) 100 MG tablet Take 200 mg by mouth. 0 Active buPROPion (WELLBUTRIN XL) 300 MG 24 hr tablet TAKE 1 TABLET BY MOUTH EVERY MORNING 1 12/12/2016 Active carisoprodol (SOMA) 350 MG tablet Take 350 mg by mouth 4 (four) times a day as needed. for pain 2 03/11/2017 Active cyanocobalamin (VITAMIN B12) 1000 MCG/ML injection INJECT 1 ML ONCE A WEEK X 4 THEN ONCE A MONTH INJECTION 90 0 01/03/2017 Active metaxalone (SKELAXIN) 800 MG tablet TAKE 1 TABLET BY MOUTH 3 TIMES A DAY 1 03/07/2017 Active omeprazole (PRILOSEC) 40 MG capsule TAKE ONE CAPSULE BY MOUTH EVERY DAY 1 03/01/2017 Active traZODone (DESYREL) 100 MG tablet TAKE 1/2 TABLET BY MOUTH 2 TIMES A DAY AND 1 OR 2 TABS AT BEDTIME NEEDED FOR ANXIETY 1 01/14/2017 Active benzonatate (TESSALON) 100 MG capsule TAKE 1 CAP BY MOUTH 3 TIMES DAILY NEEDED FOR COUGH FOR UP TO 7 DAYS. 0 09/12/2017 Active buPROPion (WELLBUTRIN SR) 150 MG 12 hr tablet TAKE 1 TABLET BY MOUTH EVERY DAY IN THE MORNING 1 08/26/2017 Active clonazePAM (KLONOPIN) 0.5 MG tablet TAKE 1 TABLET AT BEDTIME 2 08/12/2017 Active duloxetine (CYMBALTA) DR capsule 30 mg Take 30 mg by mouth daily. 1 08/26/2017 Active lithium carbonate 150 MG capsule TAKE ONE CAPSULE BY MOUTH EVERY DAY WITH 300MG CAPSULE 5 06/27/2017 Active tiZANidine (ZANAFLEX) 4 MG capsule Take 4 mg by mouth 3 (three) times a day. 0 09/18/2017 Active levothyroxine (SYNTHROID, LEVOXYL) tablet 125 mcg Take 125 mcg by mouth. 0 06/13/2018 Active NARCAN 4 MG/0.1ML LIQD ADMINISTER 1 SPRAY INTO ONE NOSTRIL. CALL 911. REPEAT AFTER 2-3 MIN IF NO OR MINIMAL RESPONSE 0 04/19/2018 Active oxyCODONE-acetaminop hen (PERCOCET) 10-325 MG per tablet TAKE 2 TABS IN THE MORNING AND 1 TAB 3 TIMES A DAY FOR CHRONIC PAIN 0 07/07/2018 Active phentermine 30 MG capsule Take 30 mg by mouth daily. in the morning 1 05/30/2018 Active Calcium Carbonate-Vitamin D (CALCIUM 600+D) 600-200 MG-UNIT TABS 1 bid 0 Acti ve diazePAM (VALIUM) tablet 5 mg TAKE 1 TABLET BY MOUTH AT BEDTIME AND 1/2 TABLET UP TO TWICE DAY NEEDED FRO ANXIETY 2 11/22/2018 Active morphine (MSIR) 15 MG tablet 0 12/14/2018 Active LORazepam (ATIVAN) 0.5 MG tablet TAKE 1 2 TABS 3 TIMES A DAY NEEDED FOR ANXIETY 0 06/22/2019 Active azithromycin (ZITHROMAX) 250 MG tablet TAKE 2 TABLETS BY MOUTH TODAY, THEN TAKE 1 TABLET DAILY FOR 4 DAYS 0 04/17/2019 Active LORazepam (ATIVAN) 1 MG tablet TAKE 1 TABLET BY MOUTH EVERY DAY AT BEDTIME MAY REPEAT IN 1 HOUR IF NEEDED FOR SLEEP 0 03/17/2020 Active linaclotide (Linzess) 290 MCG capsule Take 1 tablet by mouth. 0 11/16/2019 Active ferrous sulfate 325 (65 FE) MG tablet Take 1 tablet by mouth daily. 0 03/26/2020 Active LATUDA 20 MG TABS tablet Take 20 mg by mouth every night at bedtime. 0 12/29/2019 Active naproxen (NAPROSYN) 500 MG tablet Take 500 mg by mouth 2 (two) times a day. 0 03/12/2020 Active ascorbic acid (VITAMIN C) 500 MG tablet 0 12/05/2020 Active Vraylar 1.5 MG capsule TAKE ONE CAPSULE BY MOUTH AT BEDTIME 0 12/16/2021 Active gabapentin (NEURONTIN) 300 MG capsule TAKE 1 CAPSULE BY MOUTH ONCE DAILY AT NIGHT TIME. 0 01/11/2022 Active methocarbamol (ROBAXIN) 750 MG tablet Four Times Daily as needed for Analgesia 0 12/29/2016 Active pantoprazole (PROTONIX) 40 MG tablet Take 1 tablet (40 mg total) by mouth daily. 0 01/13/2022 Active Hospital, Clinic, or Other Facility Administered Medication Ordered Dose Route Frequency Start Date End Date Status methylPREDNISolone acetate (DEPO-Medrol) injection 40 mgIndications:Shoulder impingement syndrome, left,Glenohumeral arthritis, left 40 mg IX Once 12/25/2020 Active Active Problems Problem Noted Date Diagnosed Date Shoulder impingement syndrome, left 07/21/2018 Shoulder impingement, right 07/21/2018 Left shoulder pain 09/20/2017 Shoulder weakness 09/20/2017 Arthritis of right acromioclavicular joint 09/20 Incomplete tear of right rotator cuff 09/20/2017 Social History Tobacco Use Types Packs/Day Years Used Date Smoking Tobacco: Never Assessed Sex and Gender Information Value Date Recorded Sex Assigned at Female 10/21/2021 12:59 PM EDT Gender Identity Female 10/21/2021 12:59 PM EDT Sexual Orientation Not on file Job Start Date Occupation Industry Not on file Not on file Not on file Last Filed Vital Signs Vital Sign Reading Time Taken Comments Blood Pressure 130/78 03/18/2017 10:42 AM EST Pulse - - Temperature - - Respiratory Rate - - Oxygen Saturation - - Inhaled Oxygen Concentration - - Weight 113.4 kg (250 lb) 10/21/2021 11:21 AM EDT Height 175.3 cm (5' 9 ) 10/21/2021 11:21 AM EDT Body Mass Index 36.92 10/21/2021 11:21 AM EDT Plan of Treatment Health Maintenance Due Date Last Done Comments Hepatitis C Screening 1960 COVID-19 Vaccine (#1) 02/23/1960 Depression Screening 1971 BMI Counseling 08/22/1977 Preventative Health Evaluation 08/22/1977 Cervical Cancer Screening (Pap Smear) 08/22/1980 Colon Cancer Screening (Colonoscopy) 08/22/2004 Breast Cancer Screening (Mammogram) 08/22/2009 Shingrix-Zoster Vaccine (1 o f 2) 08/22/2009 DTap / Tdap / Td (2 - Td or Tdap) 10/21/2022 10/21/2012 Influenza Vaccine (#1) 2023 3, 12/03/2009, 02/07/2009 Pneumococcal Vaccine (1 of 1 - PCV) 08/22/2024 RSV Adult > 60+ Yrs or (1 - 1-dose 75+ series) 08/22/2034 Hepatitis B Vaccines Aged Out No long er eligible based on patient's age to complete this topic Pneumococcal Vaccine Aged Out No long er eligible based on patient's age to complete this topic RSV Ped < 20 months Aged Out No longe r eligible based on patient's age to complete this topic Care Teams Software Packager Relationship Specialty Start Date End Date Driss Santiago MD [address] [place] [address] [address] [facility] [place], [place] [id number] PCP - General Internal Medicine 10/17/19
== END 2024-04-06 09:59 | disposition home or self-care (01) ==
LOC: HO.US 09:58
PROVIDERS: PCP Internal Medicine; Visit Provider Physician Assistant Surgical
DX: I83.11 Varicose veins of right lower extremity with inflammation (principal); I83.12 Varicose veins of left lower extremity with inflammation
CPT/HCPCS: 93970

== ENCOUNTER → 2024-04-06 10:00 | Outpatient (BNV) | payer MEDICARE, MEDICAID, SELFPAY | PROVIDERS: PCP Internal Medicine; Visit Provider Radiology Diagnostic Radiology | DX: I83.893 Varicose veins of bilateral lower extremities with other complications (principal) | CPT/HCPCS: 93970 ==

== ENCOUNTER 2024-04-17 10:11 | Emergency (ER) | payer MEDICARE, MEDICAID, SELFPAY ==
--- NOTE | ~2024-04-17 | XR_ITS ---
EXAMINATION: XR CHEST 2 VIEWS HISTORY: upper respiratory COMPARISON: Comparison is made with the prior examination dated 08/22/2023. FINDINGS: PA and lateral views of the chest are submitted. There is linear scarring in the left midlung zone. The lungs are otherwise clear. There is no pleural effusion, pneumothorax, or pulmonary vascular congestion. The heart is normal in size. There is degenerative disc disease of the spine. XR/XR chest 2V IMPRESSION: No acute cardiopulmonary abnormality. Electronically signed by: Nav Frias MD 04/17/2024 10:44 AM EBEN
--- NOTE | 2024-04-17 10:13 | ECG_ITS ---
Test Reason : chest pain Blood Pressure : */* mmHG Vent. Rate : 113 BPM Atrial Rate : 113 BPM P-R Int : 126 ms QRS Dur : 82 ms QT Int : 324 ms P-R-T Axes : 69 4 58 degrees QTcB Int : 444 ms Sinus tachycardia Otherwise normal ECG When compared with ECG of 13-Jun-2023 11:45, No significant change was found Referred By: Generic ED Physician Electronically Signed By: CLAUDIA ANDERSON
[2024-04-17 10:23] VITALS: BP 109/64; PULSE 112; RESP 20; TEMP 36.3; O2SAT 98; BMI 34.6
[2024-04-17 11:10] LABS: IDNOW Serial# 58CA691E; Strep A Nucleic Acid Negative (Negative)
[2024-04-17 11:32] LABS: Influenza A PCR POSITIVE (Negative); Influenza B PCR NEGATIVE (Negative); Resp Syncy Virus RNA Qual PCR NEGATIVE (Negative); SARS COV2 PCR INHOUSE NEGATIVE (Negative)
--- OUTSIDE RECORDS SUMMARY | 2024-04-17 12:59 | XMS_ITS | Clinical Summary ---
Author Organization 175 [facility] Address [address] [place] [address] Phone Care Team Providers Care Regional Marketing Director Name Role Phone Driss Santiago MD Primary Care Provider [phone] Allergies Active Allergy Reactions Criticality Noted Date Comments Amoxicillin 12/27/2023 Cefuroxime Itching 04/28/2017 Cephalosporins Itching 09/07/2017 Other Reaction(s): Other (See Comments) Medications levothyroxine (SYNTHROID, LEVOTHROID) 88 mcg tablet Take 1 Tablet by mouth daily. - Oral Active cholecalciferol , vitamin D3, (VITAMIN D3 ORAL) D3-50 1.25 MG (74776 UT) Cap TAKE 1 CAPSULE BY MOUTH [...] 8:45 AM EST Office Visit Pulmonolgy - [address] [place] [address] Angela Painter MD Aspiration pneumonia, [...] Date Site/Laterality Comments GASTRIC BYPASS 2001 PROCEDURE: [place] GASTRIC RSTCV W/BYP W/SM INT RCNSTJ LIMIT ABSRPJ COLONOSCOPY 09/09/08 PROCEDURE: HISTORICAL COLONOSCOPY; COMMENT: hemorrhoids; repeat in ten years OTHER SURGICAL HISTORY 02/25/2009 PROCEDURE: [place] HYSTEROSCOPY LYSIS INTRAUTERINE ADHESIONS SECTION PROCEDURE: HISTORICAL DELIVERY; COMMENT: x 2 TONSILLECTOMY PROCEDURE: HISTORICAL TONSILLECTOMY; COMMENT: and Adenoidectomy OTHER SURGICAL HISTORY 08/08/2014 PROCEDURE: [place] LAPS GASTRIC RESTRICTIVE PROCEDURE PLACE DEVICE; COMMENT: Dr Bello, took out in 2018 LUMBAR LAMINECTOMY PROCEDURE: HISTORICAL LUMB LAMINECTOMY OTHER SURGICAL HISTORY 2001 PROCEDURE: [place] LAPS GSTR RSTCV PX W/BYP THEO-EN-Y LIMB <150 CM; COMMENT: Dr PRITCHETT Medical History Medical History Date Comments Backache, unspecified DX:Backach e, unspecified ADD (attention deficit disorder) 01/16/2007 DX:ADD (attention deficit disorder); COMMENT: Follows with [facility] Osteoarthritis of both knees 09/07/2017 DX: Osteoarthritis [...] / Unknown Historical Provider LAB BLOOD ORDERABLES Shelly l Result * Cervical Cancer Screening: HPV (09/12/2009) Cervical Cancer Screening: HPV abstracted, negative Historical Provider HEALTH MAINTENANCE Final Result from Last 3 Months or Most Recently Relevant to Health Maintenance Insurance [facility] [employer] [place] [id number] MEDICAID - [place] MEDICARE Care Teams Regional Marketing Director Relationship Specialty Start Date End Date Driss Santiago MD [address] [place] [address] [address] [facility] [place] [address] PCP - General Internal Medicine 02/08/17
--- OUTSIDE RECORDS SUMMARY | 2024-04-17 12:59 | XMS_ITS | Patient Health Record ---
Author Organization [facility] kely [place] Address [address] [facility] [place] [address] Care Team Providers Care Airport Baggage Screener Name Role Phone Driss Santiago Primary Care Provider Jonatan Goncalves Unavailable [phone] Allergies Allergen (clinical drug ingredient) Drug/Non Drug Allergy documented on EMR Reaction Allergy Type Onset Date Status amoxicillin Amoxicillin severe reaction Drug Allergy Active Reason For Referral No Information Medications Medication SIG (Take, Route, Fr equency, Duration) Notes Start Date End Date Status [place] Active Naproxen as needed Active Vitamin B [...] X ray : Foot, right 3V 10/31/2019 [id number] TENDON SHEATH/LIGAMENT 1 04/03/2019 Insurance Providers Payer Name Payer Address Payer Phone Subscriber Number Group Number Insured Name Patient Relationship to Insured Coverage Start Date Coverage End Date [facility] [address] [place] [address] [phone] [id number] DARIANA SHEA Spouse - patient is the spouse of the insured Medical (General) History Medical History History ICD Code Anemia Anxiety Back,Hip,and Knee pain Depression Numbness Psychiatric disorder raynauds disease thyroid Measles Mumps Chicken pox Surgical History Surgery Date(Month/Year) lumbar laminectomy 1986 section 1986 gastric bypass 2002 gall bladder 2016 T+A 1977
--- OUTSIDE RECORDS SUMMARY | 2024-04-17 12:59 | XMS_ITS | Data Portability ---
Author Organization [place] [facility] Ryan [facility] [place] Address [address] [place] [address] Care Team Providers Care Sem[employer]ductor Packages Leak Tester Name Role Phone HENRY[place]O Primary Care Provider Assessment Encounter Date Assessment Date Assessment LastModified by Organization Details LastModified Time 03/01/2023 03/01/2023 Diagnosis #1 right knee arthritis symptomatic arthralgia Had discussion with the patient her imaging. She opted for cortisone injection. After verbal consent was obtained. Procedure was then carried out on the right knee for which she tolerated well. Aftercare instructions were discussed in detail. Follow-up visit 3 months of repeat clinical exam. Should her symptoms not improve or worsen she should contact my office immediately. I did review her radiographs with her in detail and she agrees with this plan. In the meantime she would like to meet with Dr. Kay to discuss left total knee replacement. We will set this up accordingly Patient was seen and evaluated by Beth Calvin PA-C in indirect conjuction with Documenting Provider: Saurabh Kay MD . He/She agrees with history, physical examination, tests/diagnostic imaging, and treatment plan. Additional treatment plan discussed with the patient (only initiated if in boldface font) otherwise not applicable. Treatment may include the following; - Provider focused nonsteroidal anti-inflammatory regimen (discussed were the pros, cons, benefits and risks as well as any black box warnings) in patients over 60 years old they should be very cautious in taking these medications due to potential decreased kidney function and or elevated blood pressure. - Analgesic pain medication for pain suppression (discussed were the pros, cons, benefits and risks as well as any black box warnings) - The use of topical pain relieving medication were discussed - The use of ice to decrease inflammation and pain - The use of assistive ambulatory devices for ambulation and fall prevention - Formal specific guided physical therapy program I reviewed my findings at length with the patient today. ? ? ?We discussed the nature and etiology of this problem along with current treatment options. We discussed the expected course and outcomes and what to expect. We also discussed risks and benefits. ? ? ? All of their questions were answered today, and there was exhibited understanding and comprehension of all that was discussed. Time Spent: 10 minutes were spent reviewing previous imaging and charting. ? ? ?10 minutes were spent obtaining patient history. ? ? ?5 minutes were spent on physical exam. ? ? ?5? ? ?minutes were spent explaining diagnosis and assessment. Today's documentation was made using voice recognition software. This note may contain grammatical errors secondary to the software. Not available 03/01/2023 12:23:39 03/04/2023 03/04/2023 HPI : ?Thank you for the pleasure of requesting a consultation on this patient. Patient comes in complaining of right knee pain. She has been followed by Beth Calvin. She did get an injection on March 01 which has not brought significant relief yet. She reports a nickel allergy. This patient is experiencing right knee pain for a period lasting greater than the last three months, which is severe (VAS score greater than or equal to 6 on a 0-10 scale) in intensity and the restriction of function (appropriate for a patient of this age) are intolerable. The pain substantially limits activities of daily living. In particular, walking tolerance and ability to stair climb is reduced. Conservative management such as non-steroidal anti-inflammatory medications available by prescription, physician directed therapy, ice and/or heat and activity modification have been minimally effective or deemed insufficient by the patient for a period lasting greater than 3-6 months in duration. Assistive devices and external support were not deemed by the patient to be helpful in improving their function. The patient is unable to tolerate further conservative measures, including physical therapy, due to the severity of arthritis and level of pain. Review of systems is negative for rapidly progressive neurological disorder, chest pain, shortness of breath, fevers, chills, or any signs of active or persistent local or systemic infection. Physical Exam : Patient is well nourished, well-developed, in no acute distress, with appropriate mood and affect. The patient is oriented to time, place, and person. Respirations are even and unlabored. Gait evaluation does reveal a limp. There is no inguinal adenopathy. Examination of the contralateral knee shows normal range of motion, strength, no tenderness, and intact skin. The affected limb is well-perfused, without skin lesions, shows a grossly normal motor and sensory examination. Right knee motion is significantly reduced and does cause significant pain. The knee moves from 5-115 degrees. Crepitus with range of motion. The knee is stable within that [id number]-ik-swylhm to AP and ML stress. The alignment of the knee is neutral. Muscle strength is normal. Pedal pulses are palpable. Hip examination, including flexion and internal rotation, was negative in that groin pain was not produced. Radiographs of the right knee from March 01, 2023 demonstrate degenerative joint disease with joint space narrowing, osteophyte formation, and subchondral sclerosis. There is ekbt-[id number]-xciz articulation in the patellofemoral compartment. Assessment/Plan : The patient is an appropriate candidate for consideration of right total knee replacement. An extensive discussion was conducted of the natural history of the disease and the variety of surgical and non-surgical treatment options available to the patient. A risk/benefit analysis was discussed with the patient reviewing the advantages and disadvantages of surgical intervention at this time. A full explanation was given of the nature and the purpose of the procedure and anesthesia, its benefits, possible alternative methods of diagnosis of treatment, the risks involved, the possibility of complications, the foreseeable consequences of the procedure and the possible results of the non-treatment. No guarantee or assurance was made as to the results that may be obtained. Specifically, the risks were identified to include, but are not limited, to the following: Infection, phlebitis, pulmonary embolism, , paralysis, dislocation, pain, stiffness, instability, limp, weakness, breakage, leg-length inequality, uncontrolled bleeding, nerve injury, blood vessel injury, pressure sores, anesthetic risks, delayed healing of wound and bone, and wear and loosening. Additional risks of robotic knee replacement were discussed (if used) including but not limited to pin site infection, draining, longer incision, longer OR time, and fracture near the pin sites. Further discussion was undertaken with the patient about the details of surgical preparation, treatment and postoperative rehabilitation including medical clearance, autotransfusion, the hospital course and the postoperative rehabilitation involved. As a part of routine preoperative counseling, if the patient is a smoker, the patient recognizes the increased risk of complications in patients who utilize tobacco products. The patient has also been counseled regarding the elevated risk of surgical complications in patients with an elevated BMI. The patient demonstrates understanding of the increased risk in such patients. The patient was encouraged to participate in physical activity and diet modification under the direction of their primary care physician. We will plan on proceeding with right total knee arthroplasty using the [employer]over [employer]hew total knee replacement system. However, it is possible during the preoperative planning process or due to intraoperative findings that a different implant system may be utilized in order to optimize the patient's outcome. We had a discussion regarding implant and bearing options. We had a detailed discussion of the advantages and limitations of the specific implant designs, materials and bearing surfaces. All questions were answered to the patient's satisfaction, and the patient was asked to call the office with any further concerns. All in all, I feel that this patient is a good candidate for surgical reconstruction.? We would use the Glover [employer] Nephew system with Oxinium because of her nickel allergy. Right total knee replacement robotic assisted at [facility], likely in October 2023. Not available 03/04/2023 10:13:42 Plan of Treatment Reminders Order Date Submit Date Provider Last Modified By Organization Details Last Modified Time Details Appointments None recorded. Lab None recorded. Referral None recorded. Procedures None recorded. Surgeries total knee arthroplast y (SURG) 2023 024 [email or web address] 0 Not available 4 13:34:05 Imaging XR, knee, 4 or more view 2023 024 [facility], [address], [place] [address], [place], [address], 4 13:10:54 Medication Orders Kenalog 40 mg/mL suspension for injection 2023 024 [id number], [address], [place], [id number], 12:35:08 lidocaine (PF) 10 mg/mL (1 %) injection solution 2023 024 [facility] #[id number], [address], [place], [id number], 12:35:08 Patient TargetsNo targets recorded. Patient Instructions Encounter Date Encounter Id Patient Instructions Last Modified By Organization Details Last Modified Time 03/01/2023 [id number] You have been provided with a cortisone injection in order to reduce the pain and inflammation that you are experiencing. The injection consists of two medications. Cortisone (an anti-inflammatory that will take 48-72 hours to take effect) and Lidocaine (a numbing agent that will last 2-3 hours). Please note that not everyone will have a lasting response following the injection. PATIENT INSTRUCTIONS Once the Lidocaine wears off, you may have an increase in your pain. I recommend icing the affected area for 20 minutes 3-4 times per day. It is recommended that you refrain from any high level activities using the joint or limb that was injected for approximately 24-48 hours. Normal day-to-day activities are generally not a problem. POSSIBLE SIDE EFFECTS Individuals with dark complexions may experience some skin discoloration locally at the site of the injection. There is the possibility of an increase in discomfort within 48 hours following the injection. This is called a ? f lare? . To help minimize the chances of this, please see the post-injection instructions above. There is a less than 1% chance of an infection. If you notice any signs of infection (redness, warmth, drainage, fever greater than 100 degrees) please call our office or contact us through the portal [facility]. Not available 03/01/2023 12:34:26 Bilateral AP and [place] view reveals moderate least severe degenerative changes predominantly in the lateral compartments of both knees with subchondral sclerosis and osteophyte formation. This is also revealed on sunrise view as far as the patellofemoral complex with severe degenerative changes. Right knee lateral view grade 4 uapg-mo-[id number] articulation patellofemoral arthritis with osteophyte formation subchondral sclerosis without acute bony abnormality. Not available 03/01/2023 12:24:33 Reason for Referral None Reported. Problems Name Problem SNOMED Code Status Onset Date Resolution Date Notes Provider Name and Address Organization Details Recorded Time Secondary osteoarthri tis 147894228 Active 2023 BETH CALVIN PA-C [address], [place], [address], [place] [facility] 4 12:24:41 Osteoarthri tis of right knee joint 8846739123464 00 Active 2023 BETH CALVIN PA-C [address], [place], [address], [place] [facility], [facility] 4 12:24:52 Arthritis of knee 838515626 Active 2023 Saurabh Kay MD [address], [place], [address], [place] [facility], [facility] 4 10:13:36 Problem Notes None recorded. Procedures Surgical History Date Name Laterality Status Provider Name and Address Organization Details Recorded Time 03/01/19 24 Knee Joint/Bursa Asp & Inj completed BETH CALVIN PA-C [address], [place], [address], [facility] 03/01/2023 12:22:13 section completed [facility], P 03/01/2023 11:25:39 Gastric bypass for obesity completed [facility] [place] 03/01/2023 11:26:[address] [facility] 03/01/2023 11:46:40 Imaging Results None recorded. Procedure Notes None recorded. Medical Equipment None Reported. Allergies Allergen ID Allergen Name Allergen Category Reaction Reaction Severity Criticality Documentation Date Start Date Code Code System Note Provider Name and Address Organization Details Recorded Time 97064 amoxicill in medicatio n Not available Not available Not available 03/01/2023 723 RxNorm [facility], [place] [facility], [facility] 4 11:00:31 57730 nickel environme nt Not available Not available unabletoasse 03/01/2023 82775 29 RxNorm BETH CALVIN PA-C [address] [facility],[address], [place], [address] , [place] [facility], 4 12:26:22 Medications Name Sig Start Date Stop Date Status Note LastModified by Organization Details LastModified Time carisoprodol 350 mg tablet TAKE 1 TO 2 TABLETS BY MOUTH 4 TIMES A DAY NEEDED FOR PAIN active Not Available Not Available No t Available cyclobenzapr ine 10 mg tablet TAKE 1 TABLET BY MOUTH EVERY 4 HOURS NEEDED FOR PAIN active Not Available Not Available No t Available diclofenac 3 % topical gel APPLY TO AFFECTED AREA 3 TIMES A DAY active Not Available Not Available Not Available prednisone 10 mg tablet TAKE 4 TABS DAILY X3 DAYS, 3 TABS DAILY X3 DAYS, 2 TABS DAILY X3 DAYS, 1 TAB DAILY X3 DAYS active Not Available Not Available No t Available azithromycin 250 mg tablet TAKE 2 TABLETS BY MOUTH TODAY, THEN TAKE 1 TABLET DAILY FOR 4 DAYS DIRECTED active Not Available Not Available No t Available prednisone 20 mg tablet TAKE 2 TABLETS BY MOUTH EVERY MORNING active Not Available Not Available No t Available lithium carbonate ER 300 mg tablet,exten ded release TAKE 3 TABLETS BY MOUTH AT BEDTIME active Not Available Not Available No t Available ciprofloxaci n 500 mg tablet TAKE 1 TABLET BY MOUTH TWICE A DAY active Not Available Not Available No t Available levothyroxin e 75 mcg tablet TAKE 1 TABLET BY MOUTH EVERY DAY active Not Available Not Available No t Available Kenalog 40 mg/mL suspension for injection Take 1 mL by injection route. 2023 active Not Available Not Available Not Avai lable oxycodone-ac etaminophen 5 mg-325 mg tablet TAKE 1 TABLET BY MOUTH EVERY 6 HOURS NEEDED FOR PAIN active Not Available Not Available No t Available zinc gluconate 30 mg tablet TAKE 1 TABLET BY MOUTH EVERY DAY active Not Available Not Available No t Available lorazepam 0.5 mg tablet TAKE 1-2 TABS UP TO TWICE DAILY NEEDED FOR ANXIETY active Not Available Not Available Not Available methocarbamo l 750 mg tablet TAKE 1 TABLET BY MOUTH EVERY 6 HOURS NEEDED FOR MUSCLE SPASM active Not Available Not Available No t Available pantoprazole 40 mg tablet,delay ed release TAKE 1 TABLET BY MOUTH EVERY DAY active Not Available Not Available No t Available betamethason e dipropionate 0.05 % topical cream PLEASE SEE ATTACHED FOR DETAILED DIRECTIONS active Not Available Not Available N ot Available gabapentin 300 mg capsule TAKE 1 CAPSULE BY MOUTH EVERY DAY AT NIGHT TIME active Not Available Not Available N ot Available lorazepam 1 mg tablet TAKE HALF TO ONE TABLET ORALLY TWICE DAILY NEEDED FOR ANXIETY active Not Available Not Available Not Available ondansetron 4 mg disintegrati ng tablet DISSOLVE 1 TABLET BY MOUTH EVERY 8 HOURS FOR NAUSEA active Not Available Not Available No t Available cholecalcife rol (vitamin D3) 125 mcg (5,000 unit) capsule TAKE 1 CAPSULE BY MOUTH EVERY DAY active Not Available Not Available No t Available diazepam 5 mg tablet TAKE 1 TABLET BY MOUTH THREE TIMES A DAY active Not Available Not Available Not Available oxycodone 5 mg tablet TAKE 1 TABLET BY MOUTH EVERY DAY NEEDED FOR PAIN active Not Available Not Available No t Available lidocaine (PF) 10 mg/mL (1 %) injection solution Take 2 mL by injection route. 2023 active Not Available Not Available Not Avai lable diclofenac 1 % topical gel APPLY 4 GM TOPICALLY 4 TIMES A DAY TO SINGLE KNEE, ANKLE, AND FOOT (SOLE, TOES, AND TOP OF FOOT) active Not Available Not Available No t Available GaviLyte-G 236 gram-22.74 gram-6.74 gram-5.86 gram oral solution PLEASE SEE ATTACHED FOR DETAILED DIRECTIONS active Not Available Not Available N ot Available lurasidone 40 mg tablet TAKE 1 TABLET BY MOUTH EVERYDAY AT BEDTIME active Not Available Not Available No t Available lurasidone 60 mg tablet TAKE 1 TABLET BY MOUTH EVERYDAY AT BEDTIME active Not Available Not Available No t Available Children's Acetaminophe n 160 mg/5 mL oral liquid TAKE 20 ML BY MOUTH EVERY 6 HOURS FOR 3 DAYS active Not Available Not Available No t Available Vitals Date Recorded Body height Body mass index (BMI) Body weight Provider Name and Address Organization Details Last Updated DateTime 03/01/2023 175.26 cm 39.7 kg/m2 174507.35 g Sheyla Oates [place] [facility] 03/01/2023 11:01:17 Date Recorded Body height Body mass index (BMI) Body weight Provider Name and Address Organization Details Last Updated DateTime 03/04/2023 175.26 cm 40.2 kg/m2 474960.12 g Sandy Fernández [place] [facility] 03/04/2023 09:57:00 Social History Question Answer Notes LastModified by Organizat ion Details LastModified Time Tobacco Smoking Status Never Smoker Sheyla Oates mar[place] [facility], 03/01/2023 11:01:36 What Is Your Level Of Alcohol Consumption? None [email or web address] Information not available 03/01/2023 Do You Use Any Illicit Or Recreational Drugs? No Information not available 03/01/2023 Do You Or Have You Ever Used Any Other Forms Of Tobacco Or Nicotine? No Information not available 03/01/2023 Sex: Unknown Functional Status None recorded. Mental Status None recorded. Family History Relationship Description Onset Age of this Age Resolved Age Notes LastModified by Organization Details LastModified Time Brother Complication of anesthesia Not available 03/01 11:02:05 Brother Arthritis Not availabl e 03/01/2023 11:22:39 Brother Hypercholest erolemia Not available 2023 11:24:49 Mother Arthritis Not available 03/01/2023 11:22:39 Mother Blood coagulation disorder Not available 2023 11:22:47 Mother Family history of malignant neoplasm Not available 2023 11:23:02 Father Arthritis Not available 03/01/2023 11:22:39 Father Diabetes mellitus Not available 2023 11:23:53 Father Heart disease Not available 2023 11:24:04 Father Hypercholest erolemia Not available 2023 11:24:49 Father Hypertensive disorder Not available 2023 11:24:59 Sister Arthritis Not available 03/01/2023 11:22:39 Sister Hypercholest erolemia Not available 2023 11:24:49 Medical History Condition Response Hypothyroidism Y Gynecological HistoryNo gynecological history recorded. Obstetrics History GPAL:G 0 P 0 0 0 0 Past Encounters Encounter ID Performer Location Encounter Start Date Encounter Closed Date Diagnosis/Indication Diagnosis SNOMED-CT Code Diagnosis ICD10 Code Diagnosis Note [id number] MD DENZEL Tucker [address] [facility] [address] [place] [address] 03/01/2023 10:50:02 03/01/2023 11:45:23 Pain of right knee joint 2569478648 31500 M25.561 Osteoarthr itis of right knee joint 5223699618 98941 M17.11 [id number] MD DENZEL Tucker [facility] [address] [facility] [address] [place] [address] 03/04/2023 09:51:02 03/04/2023 10:17:36 Osteoarthritis of right knee joint 2673823448 14978 M17.11 Arthritis of knee 361105 002 M13.869 Health Concerns Section Related Observation LastModified by Organization Detai ls LastModified Time None Recorded Concern Status LastModified by Organization Details LastModified Time None Recorded Advance Directives Directive None Recorded Payers Encounter Date Sequence Insurance Name Policy Number Policy Schmitz Covered Member ID Schmitz Member ID Guarantor Name 03/01/2023 2 [place] Norma J Polo [id number] Norma Polo 03/01/2023 1 [place] Norma J Polo [id number] Norma Pool 03/04/2023 2 [place] Norma J Polo [id number] Norma Polo 03/04/2023 1 [place] Norma J Polo [id number] Norma Polo Notes Date Note Type Note Provider Name and Address Organization Details Recorded Time 03/01/2023 text/html Pleasant 62-year-old female history of bilateral knee arthritis last seen January 2022 for left knee pain. States asymptomatic on the left side at today's visit. Main complaint right knee pain worse with movement. Considering knee replacement however she does states she has atrue nickel allergy. Requesting for possible cortisone injection of the right knee at today's visit. Describes pain is medial in nature BETH CALVIN PA-C [address] [facility] [address], [place], [address], [place] [facility] 03/01/2023 12:35:12 OBGyn Episode No OBEpisode recorded.
--- OUTSIDE RECORDS SUMMARY | 2024-04-17 12:59 | XMS_ITS | Clinical Summary ---
Author Organization [facility] Address [address] [place] [address] Care Team Providers Care Principal Data Architect Name Role Phone Driss Santiago MD Primary Care Provider [phone] Allergies Active Allergy Reactions Criticality Noted Date [...] age to complete this topic Care Teams Principal Data Architect Relationship Specialty Start Date End Date Driss Santiago MD [address] [place] [address] [address] [facility] [place], [place] [id number] PCP - General Internal Medicine 10/17/19
--- NOTE | 2024-04-17 13:42 | ED.URI ---
HPI - URI/Sore Throat General Chief Complaint: Upper Respiratory Symptoms Stated Complaint: CP, dizzy Time Seen by Provider: 04/17/24 13:32 Source: patient and family (Spouse) Mode of arrival: ambulatory Limitations: no limitations History of Present Illness ED Provider: DR. Ash HPI Narrative: 63-year-old female walked into the emergency department for evaluation of productive cough with clear sputum time 3 days, +generalized weakness, + body ache, + generalized joint pain, +exposed to her who is also sick with influenza a. Patient reported that she took Z-New with no relief of her symptoms this morning after took a shower patient felt dizzy and shortness of breath lasted for about 1 hour patient in the emergency department is breathing at 20 per minutes and satting 98%. Related Data Home Medications ?Medication ?Instructions ?Recorded ?Confirmed cholecalciferol (vitamin D3) 125 125 mcg PO DAILY 11/24/22 01/04/24 mcg (5,000 unit) capsule lurasidone 40 mg tablet (Latuda) 40 mg PO DAILY 11/24/22 01/04/24 levothyroxine 50 mcg tablet 50 mcg PO DAILY 08/22/23 01/04/24 liothyronine 5 mcg tablet 5 mcg PO BID 08/22/23 01/04/24 cyclobenzaprine 10 mg tablet 10 mg PO BID PRN 10/21/23 01/04/24 gabapentin 300 mg capsule mg PO 10/21/23 01/04/24 semaglutide (weight loss) 2.4 2.4 mg subcut QWEEK 01/04/24 01/04/24 mg/0.75 mL subcutaneous pen injector (Ck) Previous Rx's ?Medication ?Instructions ?Recorded cholestyramine (with sugar) 4 gram 4 g PO BID PRN diarrhea 30 days 10/22/23 oral powder #368.76 grams albuterol sulfate 90 mcg/actuation 2 puff inhalation Q4-6H PRN 04/17/24 aerosol inhaler shortness of breath or wheezing #8.5 grams guaifenesin 200 mg/5 mL oral liquid 200 mg (5 mL) PO Q4H PRN cough 04/17/24 #118 mL prednisone 20 mg tablet 20 mg PO BID #10 tabs 04/17/24 Allergies Allergy/AdvReac Type Severity Reaction Status Date / Time amoxicillin [Amoxicillin] Allergy Severe HIVES, Verified 04/17/24 10:27 swelling nickel Allergy Mild Unknown Verified 04/17/24 10:27 Review of Systems Review of Systems: All other systems are reviewed and are negative Constitutional: Reports as per HPI and Reports no additional constitutional complaints Eyes: Reports as per HPI and Reports no additional eye complaints Reports system reviewed and no additional complaints, except as documented Cardiovascular: Reports as per HPI and Reports no additional cardiovascular complaints Respiratory: Reports as per HPI and Reports no additional respiratory complaints Gastrointestinal: Reports as per HPI and Reports no additional gastrointestinal complaints Genitourinary: Reports no additional female genitourinary complaints Musculoskeletal: Reports no additional musculoskeletal complaints Skin/Breast: Reports system reviewed and no additional complaints, except as docu Psychiatric: Reports no additional psychiatric complaints Endocrine: Reports no additional endocrine complaints Hematologic/Lymphatic: Reports no additional hematologic/lymphatic complaints Allergic/Immunologic: Reports no additional allergic/immunologic complaints Reports system reviewed and no additional complaints, except as documented and Reports Abnormal speech present PMFSH Past Medical History Medical History Varicose veins of right lower extremity with inflammation Severe obesity (BMI 35.0-35.9 with comorbidity) [place] toxicity Morbid obesity Polyarthralgia LLQ abdominal pain Chronic diarrhea Adult general medical exam Screening for diabetes mellitus Screening for colon cancer Screening for breast cancer Post-menopausal Depression Left hip pain Left shoulder pain Slurred speech Left lateral abdominal pain Urinary incontinence Osteomyelitis Weight gain Abdominal muscle strain Marginal ulcer Bipolar disorder Anemia ADHD PTSD (post-traumatic stress disorder) Back pain DDD (degenerative disc disease) SOB (shortness of breath) Upper back pain on left side Dizziness Hx of small bowel obstruction Right rotator cuff tear Iron deficiency anemia Obesity GERD (gastroesophageal reflux disease) Hypercholesterolemia Anxiety and depression Osteoarthritis Lumbar disc herniation Surgical History History of endoscopy History of esophagogastroduodenoscopy (EGD) Hx of colonoscopy History of adjustable gastric banding History of removal of laparoscopic gastric banding device Hx of section S/P panniculectomy Hx of laparoscopic gastric banding Hx of laminectomy Hx laparoscopic cholecystectomy History of Theo-en-Y gastric bypass Hx of tonsillectomy Family History Family History Father HTN (hypertension) DM (diabetes mellitus) Bladder cancer Prostate cancer Hyperlipidemia Mother Thyroid nodule Brother No problems noted. Sister No problems noted. Son No problems noted. Daughter No problems noted. Social History Social History Household Members: Spouse and Children Household Members Other:: dog and cat Housing: House Do you presently have visiting nurse or other home services: No Alcohol intake: never Patient Tobacco Use Status: Never used Tobacco e-Cigarette/Vaping Use: Never Used Second Hand Smoke Exposure: No Substance Use Type: Opiates Advance Directives: Yes Advance Directives on File: Yes Advance Directives Date on File: 02/10/21 Do you have a plan to hurt others: No Plan service: No Current occupational status: disabled Sexual orientation: Straight/Heterosexual Cognitive needs: No Hearing needs: No Vision needs: Yes Physical Exam Vital Signs: Vital Signs: Last Vital Signs Temp 97.4 F 04/17/24 10:23 Pulse 112 H 04/17/24 10:23 Resp 20 04/17/24 10:23 BP 109/64 04/17/24 10:23 Pulse Ox 98 04/17/24 10:23 O2 Del Method Room Air 04/17/24 10:23 BMI result Body Mass Index 34.6 Vital signs have been reviewed and appear to be correct. Blood pressure elevated. Heart rate elevated, Respiratory rate normal. Temperature normal. Oxygen saturation normal. Appearance: Alert. Oriented X3. No acute distress. Head: Normal external exam. Normocephalic. Atraumatic. No Vuong signs noted. No raccoon eyes noted Eyes: PERRLA. EOMI. Conjunctiva and sclera normal. Eyelids normal. ENT: TM's Normal. Pharynx normal. Uvula midline. Moist mucous membranes. No trismus noted. No drooling noted. No muffled voice noted. Neck: Normal inspection. Neck supple. FROM. No adenopathy. Thyroid Normal. No meningeal signs. No neck mass noted. CVS: Normal heart rate and rhythm. Heart sound normal. No murmurs noted. Pulses normal throughout. Respiratory: No respiratory distress. Painless inspiration. Breath sounds normal. Chest nontender. No accessory muscle usage noted or decreased air movement noted. Abdomen: Soft and nontender. Bowel sounds normal in all 4 quadrants. No distention noted. No organomegaly noted. No visible injury noted. Back: No CVA tenderness. Full range of motion noted. Skin: Skin warm and dry. Normal skin color. Normal skin turgor. No rashes/lesions/lacerations noted. Extremities: No lower extremity edema. Extremities exhibit normal range of motion. Extremities nontender. Neuro: Oriented X 3. Cranial nerve exam: II-XII are grossly intact No motor deficit. No sensory deficit. Reflexes normal. Course Reevaluation(s) Reevaluation #1: 63-year-old female with flu-like symptoms, negative chest x-ray bacterial pneumonia, negative troponin, no ST-T changes on the EKG. Time: 15:00 Medical Decision Making Differential Diagnosis Differential Diagnoses: The differential diagnosis associated with the presentation includes (Pneumonia, pneumothorax, pleural effusion, ACS.) Admission/Observation Consideration of admission/observation: Escalation of care including admission/observation considered Lab Data MDM Lab Attestation statement: I reviewed the patient's lab results. Labs: Lab Results 04/17/24 Range/Units 10:44 Influenza Type A (PCR) POSITIVE A (Negative) Influenza Type B (PCR) NEGATIVE (Negative) RSV RNA Qual (PCR) NEGATIVE (Negative) SARS-CoV-2 RNA (RT-PCR) NEGATIVE (Negative) S. pyogenes GrpA REYNOLD Negative (Negative) Independent Interpretation I performed an independent interpretation of an: EKG (Sinus tachycardia at 113 b.p.m. normal intervals, left axis deviation, no ST-T changes, no significant change from prior EKG.) and Plain X-Ray (No acute intrathoracic pathology.) Radiology Impression Discussion of test interpretation with radiology: I have reviewed the radiologist's reading. Discharge Plan Discharge Clinical Impression: Influenza A Patient Disposition: Still a Patient Instructions: Influenza (ED) Prescriptions: New albuterol sulfate 90 mcg/actuation HFA aerosol inhaler 2 puff inhalation Q4-6H PRN (Reason: shortness of breath or wheezing) Qty: 8.5 0RF guaifenesin 200 mg/5 mL liquid 200 mg PO Q4H PRN (Reason: cough) Qty: 118 0RF prednisone 20 mg tablet 20 mg PO BID Qty: 10 0RF No Action cholestyramine (with sugar) 4 gram powder 4 g PO BID PRN (Reason: diarrhea) 30 Days Qty: 368.76 0RF Rx Instructions: administer w/meal; avoid other meds within 1hr before or 4-6hr after dose liothyronine 5 mcg tablet 5 mcg PO BID levothyroxine 50 mcg tablet 50 mcg PO DAILY lurasidone [Latuda] 40 mg tablet 40 mg PO DAILY cyclobenzaprine 10 mg tablet 10 mg PO BID PRN gabapentin 300 mg capsule PO [place] 2.4 mg/0.75 mL pen injector 2.4 mg subcut QWEEK cholecalciferol (vitamin D3) 125 mcg (5,000 unit) capsule 125 mcg PO DAILY Referrals: Shahida Trevizo MD [Primary Care Provider] - Print Language: Citizen Of [place]
[2024-04-17 14:33] LABS: Troponin-I High Sensitivity < 2.7 ng/L (<3.5-17.0)
[2024-04-17 14:54] VITALS: BP 94/63; PULSE 106; RESP 15; TEMP 36.8; O2SAT 95
[2024-04-17 15:29] VITALS: BP 94/63; PULSE 106; RESP 15; TEMP 36.8; O2SAT 95
[2024-04-17 15:30] VITALS: O2SAT 95
== END 2024-04-17 15:30 | disposition home or self-care (01) ==
PROVIDERS: Emergency Provider Emergency Medicine; PCP Internal Medicine
DX: J10.1 Influenza due to other identified influenza virus with other respiratory manifestations (principal); R07.89 Other chest pain; R42 Dizziness and giddiness; R00.0 Tachycardia, unspecified; Z03.818 Encounter for observation for suspected exposure to other biological agents ruled out; Z79.899 Other long term (current) drug therapy
CPT/HCPCS: 0241U; 36415; 71046; 84484; 87651; 93005; 99283; 99285

== ENCOUNTER → 2024-04-17 10:13 | Outpatient (BNV) | payer MEDICARE, MEDICAID, SELFPAY | PROVIDERS: Emergency Provider Emergency Medicine; PCP Internal Medicine; Visit Provider Internal Medicine | DX: R00.0 Tachycardia, unspecified (principal) | CPT/HCPCS: 93010 ==

== ENCOUNTER → 2024-04-17 10:29 | Outpatient (BNV) | payer MEDICARE, MEDICAID, SELFPAY | PROVIDERS: PCP Internal Medicine; Visit Provider Radiology Diagnostic Radiology | DX: J06.9 Acute upper respiratory infection, unspecified (principal) | CPT/HCPCS: 71046 ==

== ENCOUNTER 2024-04-24 10:06 | Outpatient (AMB) | payer MEDICARE, MEDICAID, SELFPAY ==
--- NOTE | 2024-04-24 10:34 | MHC.OFFVIS ---
Intake Visit Reasons: Follow Up US 04/06/24 Intake Note: Patient presents for follow up US performed on 04/06/24. No complaints. Accompanied by: Self / Same As Patient Allergies amoxicillin [Amoxicillin] Allergy (Severe, Verified 04/24/24 10:35) HIVES, swelling nickel Allergy (Mild, Verified 04/24/24 10:35) Unknown HPI HPI Follow Up US 04/06/24: Details: Norma presenting today as a follow up to venous insufficiency ultrasound, performed on 04/06/2024. She states she continues with some swelling and discoloration in her lower extremities, they did lessen when she was in [place] but have now come back. She does have a history of Raynaud's in her hands. [facility] Medical History Varicose veins of right lower extremity with inflammation Severe obesity (BMI 35.0-35.9 with comorbidity) [place] toxicity Morbid obesity Polyarthralgia LLQ abdominal pain Chronic diarrhea Adult general medical exam Screening for diabetes mellitus Screening for colon cancer Screening for breast cancer Post-menopausal Depression Left hip pain Left shoulder pain Slurred speech Left lateral abdominal pain Urinary incontinence Osteomyelitis Weight gain Abdominal muscle strain Marginal ulcer Bipolar disorder Anemia ADHD PTSD (post-traumatic stress disorder) Back pain DDD (degenerative disc disease) SOB (shortness of breath) Upper back pain on left side Dizziness Hx of small bowel obstruction Right rotator cuff tear Iron deficiency anemia Obesity GERD (gastroesophageal reflux disease) Hypercholesterolemia Anxiety and depression Osteoarthritis Lumbar disc herniation Surgical History History of endoscopy History of esophagogastroduodenoscopy (EGD) Hx of colonoscopy History of adjustable gastric banding History of removal of laparoscopic gastric banding device Hx of section S/P panniculectomy Hx of laparoscopic gastric banding Hx of laminectomy Hx laparoscopic cholecystectomy History of Theo-en-Y gastric bypass Hx of tonsillectomy Family History Father HTN (hypertension) DM (diabetes mellitus) Bladder cancer Prostate cancer Hyperlipidemia Mother Thyroid nodule Brother No problems noted. Sister No problems noted. Son No problems noted. Daughter No problems noted. Social History Household Members: Spouse and Children Household Members Other:: dog and cat Housing: House Do you presently have visiting nurse or other home services: No Alcohol intake: never Patient Tobacco Use Status: Never used Tobacco e-Cigarette/Vaping Use: Never Used Second Hand Smoke Exposure: No Substance Use Type: Opiates Advance Directives Date on File: 02/10/21 service: No Current occupational status: disabled Sexual orientation: Straight/Heterosexual Cognitive needs: No Hearing needs: No Vision needs: Yes Review of Systems Const Reports as per HPI and Denies weakness ENT Reports Normal hearing present and Denies dizziness Card Reports as per HPI, Denies chest pain, Denies chest pain at rest, Denies chest pain with activity, Denies dyspnea and Denies dyspnea on exertion Resp Reports as per HPI, Denies cough, Denies dyspnea and Denies dyspnea on exertion GI Reports as per HPI, Denies abdominal pain, Denies nausea and Denies vomiting Musc Denies numbness Skin/Breast Reports as per HPI, Denies erythema and Denies wounds Neuro Reports Normal hearing present, Denies dizziness, Denies numbness, Denies Sensory deficit (Neuro) and Denies weakness Psych Reports no additional complaints Endo Reports no additional complaints Physical Exam Const General: healthy appearing and no acute distress Orientation/consciousness: patient oriented x3 HEENT Head: Yes normal to inspection Ears: hearing grossly normal bilaterally Mouth: Normal oral and palatal mucosa present Resp Effort & Inspection: normal respiratory effort and able to speak in complete sentences Auscultation: clear to auscultation bilaterally Cardio Jugular venous distension: no JVD Rate: regular rate Rhythm: regular rhythm Heart sounds: S1 normal heart sound present and S2 normal heart sound present Bruits: no abdominal aortic bruits, no carotid bruits, no femoral bruits and no renal bruits Peripheral pulses: Peripheral pulses 2+ throughout GI Inspection: Yes normal to inspection Palpation (GI): No Abdominal aortic bruit present Skin General skin exam: no rashes or lesions noted Wounds: no wounds Hair: normal Neuro General: patient oriented x3 Cranial nerves: Yes Normal hearing present Cognition (Neuro): normal cognition Gait exam (Neuro): Normal gait present Motor exam (neuro): 5/5 motor strength present throughout Sensory Exam: No Sensory deficit (Neuro) Extrem Other: Bilateral lower extremities: Discoloration noted in all her toes, the worse toe being the right 2nd toe. Trace peripheral edema noted. General: Yes normal to inspection, Yes full ROM, Yes capillary refill normal and Yes normal gait Results Reviewed Results Reviewed: Brief summary of venous insufficiency testing is as follows: right great saphenous vein: negative right small saphenous vein: negative right accessory vein: none present left great saphenous vein: negative left small saphenous vein: negative left accessory vein: none present Please note there is no evidence of any venous aneurysms or significant tortuosity Assessment & Plan Assessment & Plan (1) Varicose veins of both lower extremities with inflammation: Code(s): I83.11 - Varicose veins of right lower extremity with inflammation; I83.12 - Varicose veins of left lower extremity with inflammation Category: Medical Plan: Norma is presenting today for a follow up to venous insufficiency ultrasound, performed on 04/06/2024. She continues to endorse intermittent discoloration and swelling of bilateral lower extremities. She states it to get better when she is in [place] for the 1st part of the trip and then increase towards the end of the trip. The ultrasound was negative for any venous insufficiency. I discussed with the this could likely be due to her Raynaud's phenomenon but the best thing to do now is to follow up with her primary care doctor. We discussed the importance of continuing with compression stockings, elevation, and physical activity. Patient states she is just getting over a viral sickness. We discussed the importance of continuing with a healthy, well-balanced diet. Thank you for allowing us to participate in the patient's care. If there are any questions or concerns, please do not hesitate to reach out to us. Coding Level of Care Code Est Pt Level 4 (04362) Diagnoses Varicose veins of both lower extremities with inflammation I83.11; I83.12 Comment Review of venous insufficiency ultrasound
--- OUTSIDE RECORDS SUMMARY | 2024-04-24 12:01 | XMS_ITS | Clinical Summary ---
Author Organization [address] [facility] Address [address] [place] [address] Phone Care Team Providers Care Campaign Marketing Specialist Name Role Phone Driss Santiago MD Primary Care Provider [phone] Allergies Active Allergy Reactions Criticality Noted Date Comments Amoxicillin 12/27/2023 Cefuroxime Itching 04/28/2017 Cephalosporins Itching 09/07/2017 Other Reaction(s): Other (See Comments) Medications levothyroxine (SYNTHROID, LEVOTHROID) 88 mcg tablet Take 1 Tablet by mouth daily. - Oral Active cholecalciferol , vitamin D3, (VITAMIN D3 ORAL) D3-50 1.25 MG (06452 UT) Cap TAKE 1 CAPSULE BY MOUTH [...] 8:45 AM EST Office Visit Pulmonolgy - [address] [place] [address] Angela Painter MD Aspiration pneumonia, [...] Date Site/Laterality Comments GASTRIC BYPASS 2001 PROCEDURE: ND GASTRIC RSTCV W/BYP W/SM INT RCNSTJ LIMIT ABSRPJ COLONOSCOPY 09/09/08 PROCEDURE: HISTORICAL COLONOSCOPY; COMMENT: hemorrhoids; repeat in ten years OTHER SURGICAL HISTORY 02/25/2009 PROCEDURE: ND HYSTEROSCOPY LYSIS INTRAUTERINE ADHESIONS SECTION PROCEDURE: HISTORICAL DELIVERY; COMMENT: x 2 TONSILLECTOMY PROCEDURE: HISTORICAL TONSILLECTOMY; COMMENT: and Adenoidectomy OTHER SURGICAL HISTORY 08/08/2014 PROCEDURE: ND LAPS GASTRIC RESTRICTIVE PROCEDURE PLACE DEVICE; COMMENT: Dr Bello, took out in 2018 LUMBAR LAMINECTOMY PROCEDURE: HISTORICAL LUMB LAMINECTOMY OTHER SURGICAL HISTORY 2001 PROCEDURE: ND LAPS GSTR RSTCV PX W/BYP THEO-EN-Y LIMB <150 CM; COMMENT: Dr PRITCHETT Medical History Medical History Date Comments Backache, unspecified DX:Backach e, unspecified ADD (attention deficit disorder) 01/16/2007 DX:ADD (attention deficit disorder); COMMENT: Follows with [facility] Osteoarthritis of both knees 09/07/2017 DX: Osteoarthritis [...] Most Recently Relevant to Health Maintenance Insurance [facility] [place] [id number] MEDICAID - [place] MEDICARE Care Teams Campaign Marketing Specialist Relationship Specialty Start Date End Date Driss Santiago MD [address] [place] [address] [address] [facility] [place] [address] PCP - General Internal Medicine 02/08/17
--- OUTSIDE RECORDS SUMMARY | 2024-04-24 12:02 | XMS_ITS | Patient Health Record ---
Author Organization [facility] [place] Address [address] [facility] [place] [address] Care Team Providers Care Airline Managerial Supervisor Name Role Phone Driss Santiago Primary Care Provider Jonatan Goncalves Unavailable [phone] Allergies Allergen (clinical drug ingredient) Drug/Non Drug Allergy documented on EMR Reaction Allergy Type Onset Date Status amoxicillin Amoxicillin severe reaction Drug Allergy Active Reason For Referral No Information Medications Medication SIG (Take, Route, Fr equency, Duration) Notes Start Date End Date Status [place] Active Naproxen as needed Active Vitamin B [...] X ray : Foot, right 3V 10/31/2019 [id number] TENDON SHEATH/LIGAMENT 1 04/03/2019 Insurance Providers Payer Name Payer Address Payer Phone Subscriber Number Group Number Insured Name Patient Relationship to Insured Coverage Start Date Coverage End Date [facility] [address] [facility] [place] [address] [id number] DARIANA SHEA Spouse - patient is the spouse of the insured Medical (General) History Medical History History ICD Code Anemia Anxiety Back,Hip,and Knee pain Depression Numbness Psychiatric disorder raynauds disease thyroid Measles Mumps Chicken pox Surgical History Surgery Date(Month/Year) lumbar laminectomy 1986 section 1986 gastric bypass 2002 gall bladder 2016 T+A 1977
--- OUTSIDE RECORDS SUMMARY | 2024-04-24 12:02 | XMS_ITS | Clinical Summary ---
Author Organization [facility] Address [address] [place] [address] Care Team Providers Care Remelt Pan Tank Operator Name Role Phone Driss Santiago MD Primary Care Provider [phone] Allergies Active Allergy Reactions Criticality Noted Date [...] age to complete this topic Care Teams Remelt Pan Tank Operator Relationship Specialty Start Date End Date Driss Santiago MD [address] [place] [address] [address] [facility] [place], [place] [id number] PCP - General Internal Medicine 10/17/19
== END 2024-04-24 10:53 | disposition home or self-care (01) ==
PROVIDERS: PCP Internal Medicine; Visit Provider Physician Assistant Surgical
DX: I83.11 Varicose veins of right lower extremity with inflammation (principal); I83.12 Varicose veins of left lower extremity with inflammation
CPT/HCPCS: 99214

== ENCOUNTER → 2024-04-24 10:06 | Outpatient (BNVA) | payer MEDICARE, MEDICAID, SELFPAY | PROVIDERS: PCP Internal Medicine; Visit Provider Physician Assistant Surgical | DX: I83.11 Varicose veins of right lower extremity with inflammation (principal); I83.12 Varicose veins of left lower extremity with inflammation | CPT/HCPCS: 99212 ==

== ENCOUNTER 2024-06-22 09:11 | Outpatient (REF) | payer MEDICARE, MEDICAID, SELFPAY ==
--- OUTSIDE RECORDS SUMMARY | 2024-06-22 09:48 | XMS_ITS | Clinical Summary ---
Author Organization 175 [facility] Address [address] [place] [address] Phone Care Team Providers Care Service Station Operator Name Role Phone Driss Santiago MD Primary Care Provider [phone] Allergies Active Allergy Reactions Criticality Noted Date Comments Amoxicillin 12/27/2023 Cefuroxime Itching 04/28/2017 Cephalosporins Itching 09/07/2017 Other Reaction(s): Other (See Comments) Medications levothyroxine (SYNTHROID, LEVOTHROID) 88 mcg tablet Take 1 Tablet by mouth daily. - Oral Active cholecalciferol , vitamin D3, (VITAMIN D3 ORAL) D3-50 1.25 MG (99813 UT) Cap TAKE 1 CAPSULE BY MOUTH [...] Fungal rash of trunk 12/27/2023 Aspiration pneumonia ([facility] V24, [facility] V28) 12/27/2023 Hypothyroidism 12/27/2023 Bipolar affective disorder ([facility] V24, [facility] V28) 12/27/2023 Constipation 12/27/2023 Gassiness 12/27/2023 Epigastric pain 12/27/2023 Encounters Date Type Department Care Team Description 04/27/2024 11:27 AM EST - 04/27/2024 11:59 PM EST Hospital Encounter [facility] [address] [place] [address] Aspiration pneumonia, unspecified aspiration pneumonia type, unspecified laterality, unspecified part of lung ([facility] V24, [facility] V28) Discharge Disposition: Home or Self Care 04/27/2024 8:45 AM EST Office Visit Pulmon[facility] [address] [address] Angela Painter MD Aspiration pneumonia, unspecified aspiration pneumonia type, unspecified laterality, unspecified part of lung ([facility] V24, [facility] V28) (Primary Dx); Pneumonia of right upper lobe due to infectious organism [facility] [address] [address] Angela Painter MD AM_TEST RESULTS from Last 3 Months Immunizations Name Administration Dates Next Due Influenza trivalent, with pr eservative (Fluzone; Afluria) 6mo and older 02/07/2009 Influenza, live, intranasal, trivalent (FluMist) 2yo to less than 50yo 11/17/2012,12/03/2009,02/07/2009 Td Tetanus diptheria (Tdvax) 7yo and older 03/28 Surgical History Surgery Date Site/Laterality Comments GASTRIC BYPASS 2001 PROCEDURE: [place] GASTRIC RSTCV W/BYP W/SM INT RCNSTJ LIMIT ABSRPJ COLONOSCOPY 09/09/08 PROCEDURE: HISTORICAL COLONOSCOPY; COMMENT: hemorrhoids; repeat in ten years OTHER SURGICAL HISTORY 02/25/2009 PROCEDURE: [place] HYSTEROSCOPY LYSIS INTRAUTERINE ADHESIONS SECTION PROCEDURE: HISTORICAL DELIVERY; COMMENT: x 2 TONSILLECTOMY PROCEDURE: HISTORICAL TONSILLECTOMY; COMMENT: and Adenoidectomy OTHER SURGICAL HISTORY 08/08/2014 PROCEDURE: [place]Y LAPS GASTRIC RESTRICTIVE PROCEDURE PLACE DEVICE; COMMENT: Dr Bello, took out in 2018 LUMBAR LAMINECTOMY PROCEDURE: HISTORICAL LUMB LAMINECTOMY OTHER SURGICAL HISTORY 2001 PROCEDURE: [place] LAPS GSTR RSTCV PX W/BYP THEO-EN-Y LIMB <150 CM; COMMENT: Dr PRITCHETT Medical History Medical History Date Comments Backache, unspecified DX:Backach e, unspecified ADD (attention deficit disorder) 01/16/2007 DX:ADD (attention deficit disorder); COMMENT: Follows with [facility] Osteoarthritis of both knees 09/07/2017 DX: [...] Date Smoking Tobacco: Never Smokeless Tobacco: Never Tobacco Cessation:Counseling Given: Not Answered Alcohol Use Standard Drinks/Week Comments No 0 (1 standard drink = 0.6 oz pur e alcohol) Comments Unknown Sex and Gender Information Value Date Recorded Sex Assigned at Not on file Legal Sex Female 10:02 PM EST Gender Identity Not on file Sexual Orientation Not on file Obstetrics History Last Filed Vital Signs Vital Sign Reading Time Taken Comments Blood Pressure 118/72 04/27/2024 8:46 AM EST Pulse 118 04/27/2024 8:46 AM EST Temperature 36.5 ??C (97.7 ??F) 04/27/2024 8:46 AM ES T Respiratory Rate 16 04/27/2024 8:46 AM EST Oxygen Saturation 100% 04/27/2024 8:46 AM EST Inhaled Oxygen Concentration - - Weight 107 kg (236 lb) 04/27/2024 8:46 AM EST Height 175.3 cm (5' 9 ) 04/27/2024 8:46 AM EST Body Mass Index 34.85 04/27/2024 8:46 AM EST Plan of Treatment Upcoming Encounters Date Type Department Care Team (Late st Contact Info) Description 10/26/2024 8:45 AM EDT Office Visit Pulmonolgy - [place] 175 [facility] [address] [place] [address] Angela Painter MD 175 [facility] [address] [place] [address] Health Maintenance Due Date Last Done Comments [...] Screening (Lipid Panel) 12/03/2022 12/03/2017 COVID-19 Vaccine ( season) 2023 01/27/2021, 05/14/2020, 04/22/2020 Colorectal Cancer Screening: Colonoscopy 03/09/2028 03/09/2018 DTaP,Tdap,and Td Vaccines (4 - Td or Tdap) 01/23/2030 01/24/2020, 06/02/2018, 03/28/2003 RSV Immunization Adult Patients Completed 01/18/2023 Influenza Vaccine Completed 11/21/2023, , [...] age to complete this topic Meningococcal B Vaccine Aged Out No l onger eligible based on patient's age to complete this topic RSV Immunization Patients Under 20 months Aged Out No longer eligible based on patient's age to complete this topic Varicella Vaccines Aged Out No longer eligible based on patient's age to complete this topic Procedures Procedure Name Priority Date/Time Associated Diagnosis Comments XR CHEST 2 VIEWS Routine 04/27/2024 11:3 5 AM EST Aspiration pneumonia, unspecified aspiration pneumonia type, unspecified laterality, unspecified part of lung ([facility] V24, [facility] V28) HM COLONOSCOPY Routine 03/09/2018 LIPID PANEL Routine 12/03/2017 HM HPV Routine 09/12/2009 from Last 3 Months or Most Recently Relevant to Health Maintenance Results * XR Chest 2 Views (04/27/2024 11:35 AM EST) Anatomical Region Laterality Modality Body Radiographic Jess ging 04/27/2024 1:46 PM EST Narrative 04/27/2024 1:47 PM EST Chest, 2 views. History persistent cough. Comparison with prior chest radiographs, latest from 02/09/2022. There is small patchy focal opacity in the right upper lobe. Left lung is clear. There is no pneumothorax or pleural effusions. There is small indentation of the right hemidiaphragm. Heart is normal normal in size. CONCLUSIONS: Patchy opacity in the right upper lobe. It could represent infiltrate. Please correlate clinically. Follow-up in 4/6 weeks is recommended. -------- FINAL REPORT -------- Dictated By: Tarsha Espino Dictated Date: 04/27/2024 13:46 ET Assigned Physician: Tarsha Espino Reviewed and Electronically Signed By: Tarsha Espino Signed Date: 04/27/2024 13:47 ET Workstation ID: [id number] Transcribed By: Self Edit Transcribed Date: 04/27/2024 13:46 ET Procedure Note Tarsha Espino MD - 04/27/2024 Chest, 2 views. History persistent cough. Comparison with prior chest radiographs, latest from 02/09/2022. There is small patchy focal opacity in the right upper lobe. Left lung isclear. There is no pneumothorax or pleural effusions. There is smallindentation of the right hemidiaphragm. Heart is normal normal in size. CONCLUSIONS: Patchy opacity in the right upper lobe. It could representinfiltrate. Please correlate clinically. Follow-up in 4/6 weeks isrecommended. -------- FINAL REPORT -------- Dictated By: Tarsha Espino Dictated Date: 04/27/2024 13:46 ET Assigned Physician: Tarsha Espino Reviewed and Electronically Signed By: Tarsha Espino Signed Date: 04/27/2024 13:47 ET Workstation ID: [id number] Transcribed By: Self Edit Transcribed Date: 04/27/2024 13:46 ET Angela Painter MD IMG XR PROCEDURES Final Result * Colonoscopy (03/09/2018) [facility] Colonoscopy no interpretation , abstracted Anatomical Region Laterality Modality Other Result [facility] Historical Provider HEALTH MAINTENANCE Final Result * (ABNORMAL) Lipid panel (12/03/2017) [facility] LDL/HDL Ratio 2 0 - 4 Triglycerides 82 0 - 150 mg/dL Cholesterol 202(A) 0 - 200 mg/dL HDL 83 >=40 mg/dL LDL Cholesterol 103(A) 0 - 100 mg/dL Blood Venous blood specimen / Unknown Result [facility] Historical Provider LAB BLOOD ORDERABLES Shelly l Result * Cervical Cancer Screening: HPV (09/12/2009) [facility] Cervical Cancer Screening: HPV abstracted, negative Historical Provider HEALTH MAINTENANCE Final Result from Last 3 Months or Most Recently Relevant to Health Maintenance Insurance [place] - [place]ICARE Care Teams Service Station Operator Relationship Specialty Start Date End Date Driss Santiago MD [address] [place] [address] Dr Borges [address] [facility] [place] [address] PCP - General Internal Medicine 02/08/17
--- OUTSIDE RECORDS SUMMARY | 2024-06-22 09:48 | XMS_ITS | Data Portability ---
Author Organization [place] [facility] [place] Address [address] [place] [address] Care Team Providers Care Electro Optical Engineer Name Role Phone HENRYORLANDO Primary Care Provider [...] motion. The knee is stable within that xyzoe-zl-fimprk to AP and ML stress. The alignment of the knee is neutral. Muscle strength is normal. Pedal pulses are palpable. Hip examination, including flexion and internal rotation, was negative in that groin pain was not produced. Radiographs of the right knee from March 01, 2023 demonstrate degenerative joint disease with joint space narrowing, osteophyte formation, and subchondral sclerosis. There is mrci-kw-rrjn articulation in the patellofemoral compartment. Assessment/Plan : [...] Right total knee replacement robotic assisted at [place] [facility] [place], likely in October 2023. Not available 03/04/2023 10:13:42 Plan of Treatment Reminders Order Date Submit Date Provider Last Modified By Organization Details Last Modified Time Details Appointments None recorded. Lab None recorded. Referral None recorded. Procedures None recorded. Surgeries total knee arthroplast y (SURG) 2023 024 [email or web address] Not available 4 13:34:05 Imaging XR, knee, 4 or more view 2023 024 [facility], [address], [place] [address], [place], [address], 4 13:10:54 Medication Orders Kenalog 40 mg/mL suspension for injection 2023 024 [facility] #[id number], [address], [place], [id number], 12:35:08 lidocaine (PF) 10 mg/mL (1 %) injection solution 2023 024 [facility] #[id number], [address], [place], [phone], 12:35:08 Patient TargetsNo targets recorded. Patient Instructions Encounter Date Encounter Id Patient Instructions Last Modified By Organization Details Last Modified Time 03/01/2023 [id number] You have been provided with a cortisone [...] changes. Right knee lateral view grade 4 tjsk-yl-ihtd articulation patellofemoral arthritis with osteophyte formation subchondral sclerosis without acute bony abnormality. Not available 03/01/2023 12:24:33 Reason for Referral None Reported. Problems Name Problem SNOMED Code Status Onset Date Resolution Date Notes Provider Name and Address Organization Details Recorded Time Secondary osteoarthri tis 794498468 Active 2023 BETH CALVIN PA-C [address], [place], [address], [place] [facility], P 4 12:24:41 Osteoarthri tis of right knee joint 6103766231732 00 Active 2023 BETH CALVIN PA-C [address], [place], [address], [place] [facility], P 4 12:24:52 Arthritis of knee 636461369 Active 2023 Saurabh Kay MD [address], [place], [address], [place] [facility], P 4 10:13:36 Problem Notes None recorded. Procedures Surgical History Date Name Laterality Status Provider Name and Address Organization Details Recorded Time 03/01/19 24 Knee Joint/Bursa Asp & Inj completed BETH CALVIN PA-C [address], [place], [address], [facility] [place], P 03/01/2023 12:22:13 section completed [facility], P 03/01/2023 11:25:39 Gastric bypass for obesity completed [facility] [place], P 03/01/2023 11:26:01 panniculotomy completed [facility] 03/01/2023 11:46:40 Imaging Results None recorded. Procedure Notes None recorded. Medical Equipment None Reported. Allergies Allergen ID Allergen Name Allergen Category Reaction Reaction Severity Criticality Documentation Date Start Date Code Code System Note Provider Name and Address Organization Details Recorded Time 24325 amoxicill in medicatio n Not available Not available Not available 03/01/2023 723 Rx[facility], [place] [facility], P 4 11:00:31 67273 nickel environme nt Not available Not available unabletoasse 03/01/2023 34856 29 RxNorm BETH CALVIN PA-C [address] [facility],[address], [place], [address] , [place] [facility], 4 12:26:22 Medications Name Sig Start Date [...] Updated DateTime 03/01/2023 175.26 cm 39.7 kg/m2 454962.35 g Sheyla Oates [place] - [facility], P 03/01/2023 11:01:17 Date Recorded Body height Body mass index (BMI) Body weight Provider Name and Address Organization Details Last Updated DateTime 03/04/2023 175.26 cm 40.2 kg/m2 793402.12 g Sandy Fernández [place] [facility], P 03/04/2023 09:57:00 Social History Question Answer Notes LastModified by Organizat ion Details LastModified Time Tobacco Smoking Status Never Smoker Sheyla Oates marisol [place] - [facility], 03/01/2023 11:01:36 What Is Your Level Of [...] SNOMED-CT Code Diagnosis ICD10 Code Diagnosis Note [id number] LI LOPEZ [address] [facility] [address] [place] [address] 03/01/2023 10:50:02 03/01/2023 11:45:23 Pain of right knee joint 9822879478 37836 M25.561 Osteoarthr itis of right knee joint 5072275907 80960 M17.11 83500 MD DENZEL Tucker [facility] [address] [facility] [address] [place] [address] 03/04/2023 09:51:02 03/04/2023 10:17:36 Osteoarthritis of right knee joint 4928596145 51373 M17.11 Arthritis of knee 401825 002 M13.869 Health Concerns Section Related Observation LastModified by Organization Detai ls LastModified Time None Recorded Concern Status LastModified by Organization Details LastModified Time None Recorded Advance Directives Directive None Recorded Payers Encounter Date Sequence Insurance Name Policy Number Policy Schmitz Covered Member ID Schmitz Member ID Guarantor Name 03/01/2023 2 [place] Norma J Polo [id number] Norma Polo 03/01/2023 1 [place] Norma J Polo [id number] Norma Polo 03/04/2023 2 [place] Norma J Polo [id number] Norma Polo 03/04/2023 1 [place] Norma J Polo [id number] Norma Polo Notes Date Note Type Note [...] medial in nature BETH CALVIN PA-C [address] [facility] [address], [place], [address], [place] [facility], P 03/01/2023 12:35:12 OBGyn Episode No OBEpisode recorded.
--- OUTSIDE RECORDS SUMMARY | 2024-06-22 09:49 | XMS_ITS | Clinical Summary ---
Author Organization [facility] Address [address] [place] [address] Care Team Providers Care Assistant Refinery Operator Name Role Phone Driss Santiago MD Primary Care Provider [phone] Allergies Active Allergy Reactions Criticality Noted Date [...] age to complete this topic Care Teams Assistant Refinery Operator Relationship Specialty Start Date End Date Driss Santiago MD [address] [place] [address] [address] [facility] [place], [place] [id number] PCP - General Internal Medicine 10/17/19
--- OUTSIDE RECORDS SUMMARY | 2024-06-22 09:49 | XMS_ITS | Patient Health Record ---
Author Organization [facility] kely Henderson Address [address] [facility] [place] [address] Care Team Providers Care Advertising Executive Name Role Phone Driss Santiago Primary Care Provider Jonatan Goncalves Unavailable [phone] Allergies Allergen (clinical drug ingredient) Drug/Non Drug Allergy documented on EMR Reaction Allergy Type Onset Date Status amoxicillin Amoxicillin severe reaction Drug Allergy Active Reason For Referral No Information Medications Medication SIG (Take, Route, Fr equency, Duration) Notes Start Date End Date Status Mission Active Naproxen as needed Active Vitamin B [...] X ray : Foot, right 3V 10/31/2019 [id number] TENDON SHEATH/LIGAMENT 1 04/03/2019 Insurance Providers Payer Name Payer Address Payer Phone Subscriber Number Group Number Insured Name Patient Relationship to Insured Coverage Start Date Coverage End Date [facility] [address] [facility] [place] [address] [phone] [id number] DARIANA SHEA Spouse - patient is the spouse of the insured Medical (General) History Medical History History ICD Code Anemia Anxiety Back,Hip,and Knee pain Depression Numbness Psychiatric disorder raynauds disease thyroid Measles Mumps Chicken pox Surgical History Surgery Date(Month/Year) lumbar laminectomy 1986 section 1986 gastric bypass 2002 gall bladder 2016 T+A 1977
[2024-06-22 11:29] LABS: Alanine Aminotransferase 9 U/L (0-31); Albumin Level 3.6 g/dL (3.5-5.0); Alkaline Phosphatase 118 U/L (39-117); Anion Gap 12 (12-20); Aspartate Amino Transferase 15 U/L (5-31); Bilirubin Total 0.5 mg/dL (0.0-1.0); Blood Urea Nitrogen 14 mg/dL (9-16); Carbon Dioxide 27 mmol/L (22-29); Chloride 109 mmol/L (96-108); Cholesterol 188 mg/dL (<200); Estimated Glomerular Filt Rate > 60; Glucose Fasting 86 mg/dL (60-99); HDL Cholesterol 56 mg/dL (>40); LDL Cholesterol Calculated 111 mg/dL (<100); Potassium 4.4 mmol/L (3.3-5.1); Sodium 144 mmol/L (135-145); Total Protein 6.5 g/dL (6.5-8.0); Triglycerides 109 mg/dL (<150)
[2024-06-22 11:45] LABS: Thyroid Stimulating Hormone 2.13 uIU/mL (0.32-4.0); Vitamin D 25-OH Total 60.7 ng/mL (>30)
== END 2024-06-22 09:12 | disposition home or self-care (01) ==
LOC: HO.LAB 09:11
PROVIDERS: PCP Internal Medicine; Visit Provider Internal Medicine
DX: E78.00 Pure hypercholesterolemia, unspecified (principal); E78.5 Hyperlipidemia, unspecified; E03.9 Hypothyroidism, unspecified; E55.9 Vitamin D deficiency, unspecified
CPT/HCPCS: 36415; 80053; 80061; 82306; 84443

== ENCOUNTER 2024-06-25 07:58 | Outpatient (AMB) | payer MEDICARE, MEDICAID, SELFPAY ==
--- OUTSIDE RECORDS SUMMARY | 2024-06-25 08:04 | XMS_ITS | Data Portability ---
Author Organization [place] [facility] Brad Ryan [facility] [place] Address [address] [place] [address] Care Team Providers Care Farm Service Consultant Name Role Phone HENRYORLANDO Primary Care Provider [...] motion. The knee is stable within that hjqik-us-emgwvu to AP and ML stress. The alignment of the knee is neutral. Muscle strength is normal. Pedal pulses are palpable. Hip examination, including flexion and internal rotation, was negative in that groin pain was not produced. Radiographs of the right knee from March 01, 2023 demonstrate degenerative joint disease with joint space narrowing, osteophyte formation, and subchondral sclerosis. There is bfvo-kz-khbp articulation in the patellofemoral compartment. Assessment/Plan : [...] replacement robotic assisted at [place] [facility] [place], likely in October 2023. Not available 03/04/2023 10:13:42 Plan of Treatment Reminders Order Date Submit Date Provider Last Modified By Organization Details Last Modified Time Details Appointments None recorded. Lab None recorded. Referral None recorded. Procedures None recorded. Surgeries total knee arthroplast y (SURG) 2023 024 [email or web address] Not available 4 13:34:05 Imaging XR, knee, 4 or more view 2023 024 [facility], [address], [place] [address], [place], [address], 4 13:10:54 Medication Orders Kenalog 40 mg/mL suspension for injection 2023 024 [facility] #85362, [address], [place], [phone], 12:35:08 lidocaine (PF) 10 mg/mL (1 %) injection solution 2023 024 [facility] #96062, [address], [place], [phone], 12:35:08 Patient TargetsNo targets recorded. Patient Instructions Encounter Date Encounter Id Patient Instructions Last Modified By Organization Details Last Modified Time 03/01/2023 [id number] You have been provided with a cortisone [...] changes. Right knee lateral view grade 4 nphj-tz-ndnd articulation patellofemoral arthritis with osteophyte formation subchondral sclerosis without acute bony abnormality. Not available 03/01/2023 12:24:33 Reason for Referral None Reported. Problems Name Problem SNOMED Code Status Onset Date Resolution Date Notes Provider Name and Address Organization Details Recorded Time Secondary osteoarthri tis 333460085 Active 2023 BETH CALVIN PA-C [address], [facility] [place], [address], [place] [facility], P 4 12:24:41 Osteoarthri tis of right knee joint 8738834496750 00 Active 2023 BETH CALVIN PA-C [address], [facility] [place], [address], [place] [facility], P 4 12:24:52 Arthritis of knee 148793143 Active 2023 Saurabh Kay MD [address], [place], [address], [place] [facility], P 4 10:13:36 Problem Notes None recorded. Procedures Surgical History Date Name Laterality Status Provider Name and Address Organization Details Recorded Time 03/01/19 24 Knee Joint/Bursa Asp & Inj completed BETH CALVIN PA-C [address], [place], [address], [facility], P 03/01/2023 12:22:13 section completed [facility], P 03/01/2023 11:25:39 Gastric bypass for obesity completed [facility], P 03/01/2023 11:26:01 [facility]iculotomy [facility] 03/01/2023 11:46:40 Imaging Results None recorded. Procedure Notes None recorded. Medical Equipment None Reported. Allergies Allergen ID Allergen Name Allergen Category Reaction Reaction Severity Criticality Documentation Date Start Date Code Code System Note Provider Name and Address Organization Details Recorded Time 95386 amoxicill in medicatio n Not available Not available Not available 03/01/2023 723 Rx[facility], [place] - [facility], P 4 11:00:31 42061 nickel environme nt Not available Not available unabletoasse 03/01/2023 32510 29 RxNorm BETH CALVIN PA-C [address] [facility],[address], [place], [address] , [place] [facility], 4 12:26:22 Medications Name Sig Start Date [...] Updated DateTime 03/01/2023 175.26 cm 39.7 kg/m2 166343.35 g Sheyla Oates [place] - [facility], P 03/01/2023 11:01:17 Date Recorded Body height Body mass index (BMI) Body weight Provider Name and Address Organization Details Last Updated DateTime 03/04/2023 175.26 cm 40.2 kg/m2 499369.12 g Sandy Fernández [place] [facility], P 03/04/2023 09:57:00 Social History Question Answer Notes LastModified by Organizat ion Details LastModified Time Tobacco Smoking Status Never Smoker Sheyla Oates mar[place] [facility], 03/01/2023 11:01:36 What Is Your Level Of [...] SNOMED-CT Code Diagnosis ICD10 Code Diagnosis Note [id number] LI LOPEZ [address] [facility] [address] [facility] [place] [address] 03/01/2023 10:50:02 03/01/2023 11:45:23 Pain of right knee joint 2171128902 10525 M25.561 Osteoarthr itis of right knee joint 7751359517 17093 M17.11 02407 MD DENZEL Tucker [facility] 299 [facility] [address] [facility] [place] [address] 03/04/2023 09:51:02 03/04/2023 10:17:36 Osteoarthritis of right knee joint 3701833586 99687 M17.11 Arthritis of knee 693578 002 M13.869 Health Concerns Section Related Observation LastModified by Organization Detai ls LastModified Time None Recorded Concern Status LastModified by Organization Details LastModified Time None Recorded Advance Directives Directive None Recorded Payers Encounter Date Sequence Insurance Name Policy Number Policy Schmitz Covered Member ID Schmitz Member ID Guarantor Name 03/01/2023 2 [place] Norma J Polo [id number] Norma Polo 03/01/2023 1 [place] Norma J Polo [id number] Norma Polo 03/04/2023 2 [place] Norma J Polo [id number] Norma Polo 03/04/2023 1 [place] Norma J Polo [id number] Norma Polo Notes Date Note Type Note [...] medial in nature BETH CALVIN PA-C [address] [facility] [address], [place], [address], [place] [facility], P 03/01/2023 12:35:12 OBGyn Episode No OBEpisode recorded.
--- OUTSIDE RECORDS SUMMARY | 2024-06-25 08:04 | XMS_ITS | Clinical Summary ---
Author Organization [facility] Address [address] [place] [address] Care Team Providers Care Delivery Truck Driver Heavy Name Role Phone Driss Santiago MD Primary Care Provider [phone] Allergies Active Allergy Reactions Criticality Noted Date [...] age to complete this topic Care Teams Delivery Truck Driver Heavy Relationship Specialty Start Date End Date Driss Santiago MD [address] [place] [address] [address] [facility] [place], [place] [id number] PCP - General Internal Medicine 10/17/19
--- OUTSIDE RECORDS SUMMARY | 2024-06-25 08:04 | XMS_ITS | Patient Health Record ---
Author Organization [facility] [place] Address [address] [place] [address] Care Team Providers Care Board Machine Set Up Operator Name Role Phone Driss Santiago Primary Care Provider Jonatan Goncalves Unavailable [phone] Allergies Allergen (clinical drug ingredient) Drug/Non Drug Allergy documented on EMR Reaction Allergy Type Onset Date Status amoxicillin Amoxicillin severe reaction Drug Allergy Active Reason For Referral No Information Medications Medication SIG (Take, Route, Fr equency, Duration) Notes Start Date End Date Status [place] Active Naproxen as needed Active Vitamin B [...] X ray : Foot, right 3V 10/31/2019 [id number] TENDON SHEATH/LIGAMENT 1 04/03/2019 Insurance Providers Payer Name Payer Address Payer Phone Subscriber Number Group Number Insured Name Patient Relationship to Insured Coverage Start Date Coverage End Date [facility] [address] [facility] [place] [address] [phone] [id number] DARIANA SHEA Spouse - patient is the spouse of the insured Medical (General) History Medical History History ICD Code Anemia Anxiety Back,Hip,and Knee pain Depression Numbness Psychiatric disorder raynauds disease thyroid Measles Mumps Chicken pox Surgical History Surgery Date(Month/Year) lumbar laminectomy 1986 section 1986 gastric bypass 2002 gall bladder 2016 T+A 1977
--- NOTE | 2024-06-25 08:08 | MHC.PC.OV ---
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 Accompanied by: Self / Same As Patient Allergies amoxicillin [Amoxicillin] Allergy (Severe, Verified 06/25/24 08:18) HIVES, swelling Medication List - Last Reconciled 06/25/24 by Shahida Graham MD albuterol sulfate 90 mcg/actuation 2 puffs inhalation Q4-6H PRN cholecalciferol (vitamin D3) 125 mcg PO DAILY cholestyramine (with sugar) 4 gram 4 grams PO BID PRN 30 days cyclobenzaprine 10 mg PO BID PRN gabapentin mg PO levothyroxine 50 mcg PO DAILY liothyronine 5 mcg PO BID lurasidone (Latuda) 40 mg PO DAILY tirzepatide (Mounjaro) mg subcut Tobacco use date assessed: 06/25/24 Fall risk assessment: 2 + Falls in past year Last assessed Fall Risk: 06/25/24 Dental Screening Dental Screen Date: 06/25/24 Did you have a dental visit in the last 12 months?: Yes Did you have a dental problem in the last 6 months where you did not have access to dental care?: No Was dental information given to patient?: Patient has dentist HPI HPI Comments History of Present Illness Details The patient is a 63-year-old female presenting for a follow-up and monitoring of existing medical conditions and medications. The patient's blood work from two years ago indicated cholesterol levels of approximately 200 mg/dL, which have since decreased to 180 mg/dL, reflecting improvement. The patient reports a normal thyroid function but states her vitamin D levels are elevated due to her intake of vitamin D supplements; this is being adjusted to prevent complications such as kidney stones. The patient also continues to manage her weight and has been transitioned from Wegovy to another medication, expressing difficulty in achieving further weight reduction. Historically, she reports undergoing a series of cardiac evaluations, including an echocardiogram and stress tests, due to diagnosed inverted T-waves. Gastrointestinal disturbances, previously noted in the context of Wegovy use, have resolved. Regarding allergies, the patient experiences reactions to amoxicillin, characterized by urticaria and swelling, and underwent patch testing for nickel allergies due to family history of nickel sensitivity. Dermatological evaluations did not confirm a nickel allergy recently, but she reports a new skin irritation with pruritus. The patient denies any respiratory issues despite previous suggestions of asthma, confirmed through pulmonary function tests. [facility] Medical History Varicose veins of right lower extremity with inflammation Severe obesity (BMI 35.0-35.9 with comorbidity) [place] toxicity Morbid obesity Polyarthralgia LLQ abdominal pain Chronic diarrhea Adult general medical exam Screening for diabetes mellitus Screening for colon cancer Screening for breast cancer Post-menopausal Depression Left hip pain Left shoulder pain Slurred speech Left lateral abdominal pain Urinary incontinence Osteomyelitis Weight gain Abdominal muscle strain Marginal ulcer Bipolar disorder Anemia ADHD PTSD (post-traumatic stress disorder) Back pain DDD (degenerative disc disease) SOB (shortness of breath) Upper back pain on left side Dizziness Hx of small bowel obstruction Right rotator cuff tear Iron deficiency anemia Obesity GERD (gastroesophageal reflux disease) Hypercholesterolemia Anxiety and depression Osteoarthritis Lumbar disc herniation Surgical History History of endoscopy History of esophagogastroduodenoscopy (EGD) Hx of colonoscopy History of adjustable gastric banding History of removal of laparoscopic gastric banding device Hx of section S/P panniculectomy Hx of laparoscopic gastric banding Hx of laminectomy Hx laparoscopic cholecystectomy History of Theo-en-Y gastric bypass Hx of tonsillectomy Family History Father HTN (hypertension) DM (diabetes mellitus) Bladder cancer Prostate cancer Hyperlipidemia Mother Thyroid nodule Brother No problems noted. Sister No problems noted. Son No problems noted. Daughter No problems noted. Social History Household Members: Spouse and Children Household Members Other:: dog and cat Housing: House Do you presently have visiting nurse or other home services: No Alcohol intake: never Patient Tobacco Use Status: Never used Tobacco e-Cigarette/Vaping Use: Never Used Second Hand Smoke Exposure: No Substance Use Type: Opiates Advance Directives Date on File: 02/10/21 service: No Current occupational status: disabled Sexual orientation: Straight/Heterosexual Cognitive needs: No Hearing needs: No Vision needs: Yes Questionnaire PHQ-9 Over the last 2 weeks, how often have you been bothered by any of the following problems? 1. Little interest or pleasure in doing things: not at all 2. Feeling down, depressed, or hopeless: not at all 3. Trouble falling or staying asleep, or sleeping too much: not at all 4. Feeling tired or having little energy: not at all 5. Poor appetite or overeating: not at all 6. Feeling bad about yourself - or that you are a failure or have let yourself or your family down: not at all 7. Trouble concentrating on things, such as reading the newspaper or watching television: not at all 8. Moving or speaking so slowly that other people could have noticed. Or the opposite - being so fidgety or restless that you have been moving around a lot more than usual: not at all 9. Thoughts that you would be better off or of hurting yourself in some way: not at all Total score: 0 Depression Screening Interpretation: Negative Depression Screening Done: Yes 80284 - PHQ-9 Billing: Yes Source: Developed by Drs. Nav Faust, July Contreras, Horacio Rudolph and colleagues, with an educational mustapha from [employer]. Thrive Questionnaire Date Thrive assessed: 06/25/24 I am a: Patient What is your living situation today?: I have a steady place to live Within the past 12 months, did the food you bought not last and you didn't have the money to get more?: Never true Within the past 12 months, did you worry whether your food would run out before you got money to buy more?: Never true Do you have trouble paying for medicines?: No Do you have trouble getting transportation to medical appointments?: No Do you have trouble paying your heating and electricity bill?: No Do you have trouble taking care of your child, family member or friend?: No Do you have trouble with day-to-day activities such as bathing, preparing meals, shopping, managing finances, etc.?: No Are you currently unemployed and looking for a job?: No Are you interested in more education?: No Please select the resources that you would like help with: None Currently or been in a relationship where the following occur: I choose not to answer THRIVE Score: 0 AUDIT C Alcohol Use Questionnaire (AUDIT-C) 1. How often do you have a drink containing alcohol?: Never Total Score: 0 Score Reviewed/Action Taken: No GILDA-7 AMB Questionnaire GILDA-7 Date GILDA - 7 assessed: 06/25/24 Feeling nervous, anxious, or on edge: 0 = Not at all Not being able to stop or control worryin = Not at all Worrying too much about different things: 0 = Not at all Trouble relaxin = Not at all Being so restless that it is hard to sit still: 0 = Not at all Becoming easily annoyed or irritable: 0 = Not at all Feeling afraid as if something awful might happen: 0 = Not at all Total GILDA-7 score (0-4 normal; 5-9 mild; 10-14 moderate; 15-21 severe): 0 Source: Developed by Drs. Nav Faust, July Contreras, Horacio Rudolph and colleagues, with an educational mustapha from [employer]. GILDA-7 Assessment Billing GILDA-7 Assessment Tool: GILDA-7 Assessment 50921 Review of Systems Const All systems reviewed & are unremarkable except as noted in HPI and below Card Denies chest pain at rest, Denies chest pain with activity, Denies edema, Denies irregular heart rhythm, Denies claudication, Denies dyspnea, Denies dyspnea on exertion, Denies orthopnea, Denies paroxysmal nocturnal dyspnea and Denies slow heart rate Resp Denies cough, Denies dyspnea and Denies dyspnea on exertion GI Denies abdominal pain, Denies change in bowel habits, Denies excessive flatus, Denies nausea and Denies vomiting Denies urinary incontinence, Denies urinary hesitancy and Denies urinary urgency Musc Denies atrophy, Denies deformity and Denies limited range of motion Physical exam (Primary Care) Vital Signs: Last Vital Signs BP 130/82 06/25/24 08:09 BMI result Body Mass Index 34.8 BMI Assessment/Plan discussion: High BMI High, discussed plan: lifestyle, weight reduction, dietary and physical activity Tobacco/Smoking Status: Tobacco use Status Tobacco use date assessed 06/25/24 06/25/24 08:15 Patient Tobacco Use Status Never used Tobacco 06/25/24 08:15 e-Cigarette/Vaping Use Never Used 06/25/24 08:15 PHQ-9: PHQ-9 Score PHQ-9: Total score 0 06/25/24 08:15 Depression Screening Interpretation: Negative Thrive Assessment: Date of Thrive Assessment Date Thrive assessed 06/25/24 06/25/24 08:15 Currently or been in a relationship where the following occur: I choose not to answer Resp Effort & Inspection: normal respiratory effort Auscultation: clear to auscultation bilaterally Cardio Jugular venous distension: no JVD Rate: regular rate Rhythm: regular rhythm Heart sounds: S1 normal heart sound present and S2 normal heart sound present Extrem General: Yes full ROM Coding Level of Care Code Est Pt Level 4 (11747) Complex EM visit Add On G2211 Diagnoses Acquired hypothyroidism E03.9 Hypothyroidism type: acquired Low vitamin D level R79.89 Bipolar affective disorder in remission F31.70 Active/Remission status: in remission of unspecified degree Hypercholesterolemia E78.00 Additional Codes PHQ-9 - 93946 - PHQ-9 Billing: Yes ([id number]) GILDA-7 Assessment Billing - GILDA-7 Assessment Tool: GILDA-7 Assessment 72224 ([id number]) Time Spent (min) 23 Assessment & Plan Assessment & Plan (1) Hypothyroid: Code(s): E03.9 - Hypothyroidism, unspecified Category: Medical Qualifiers: Hypothyroidism type: acquired Qualified Code(s): E03.9 - Hypothyroidism, unspecified (2) Low vitamin D level: Code(s): R79.89 - Other specified abnormal findings of blood chemistry Category: Medical (3) Bipolar disorder: Comment: Dony psychaitry Code(s): F31.9 - Bipolar disorder, unspecified Category: Medical Qualifiers: Active/Remission status: in remission of unspecified degree Qualified Code(s): F31.70 - Bipolar disorder, currently in remission, most recent episode unspecified (4) Hypercholesterolemia: Code(s): E78.00 - Pure hypercholesterolemia, unspecified Category: Medical Plan Management of existing medical concerns continues, with adjustments to vitamin D supplementation to prevent kidney stones. Continuous monitoring of cholesterol levels reveals ongoing effectiveness. Thyroid treatment remains unchanged, while gastrointestinal issues are resolved following a medication change from Wegovy. Skin irritation will be observed further, given no specific allergen identified in recent testing. The patient understands the significance of proper phlebotomy technique after difficulties noted previously. No further intervention is deemed necessary for cardiac evaluations unless symptomatic changes occur. Patient was informed and verbally consented to the use of an ambient scribe for clinic note documentation during this visit. I discussed with the patient the need to adjust vitamin D intake due to potential risks such as kidney stones. We reviewed the stable status of cholesterol and thyroid function, with no immediate alterations needed in management. I addressed the change from Wegovy and resolution of gastrointestinal issues. The patient understands the lack of evidence supporting asthma and the futility of unwarranted inhaler use. Discussions covered the evaluation of skin irritation and past cardiac workup, aligning treatment with past results and current symptoms. I advised on maintaining current psychiatric and neurological medications. Future visits will continue to monitor these chronic issues, and any new symptoms warrant timely evaluation. Orders: Orders Lipid Panel 5 Months E78.5 - Hyperlipidemia, unspecified Thyroid Stimulating Hormone 5 Months E03.9 - Hypothyroidism, unspecified Comprehensive [place]. Panel Fast 5 Months K21.9 - Gastro-esophageal reflux disease without esophagitis Vitamin D 25-OH Total 5 Months E55.9 - Vitamin D deficiency, unspecified Medications: New cholecalciferol (vitamin D3) 25 mcg PO DAILY 90 days 90 caps 1RF Patient Instructions: - Reduce vitamin D intake to decrease risk of kidney stones. - Continue current cholesterol and thyroid management. - Monitor skin irritation and use topical treatments as needed. - Report any new or worsening symptoms promptly. - Maintain current psychiatric and neurological regimen. - Apply ice to bruised areas from blood draws to manage discomfort.
[2024-06-25 08:09] VITALS: BP 130/82; BMI 34.8
== END 2024-06-25 08:31 | disposition home or self-care (01) ==
LOC: HO.HMCH 07:59
PROVIDERS: PCP Internal Medicine; Visit Provider Internal Medicine
DX: E03.9 Hypothyroidism, unspecified (principal); R79.89 Other specified abnormal findings of blood chemistry; F31.70 Bipolar disorder, currently in remission, most recent episode unspecified; E78.00 Pure hypercholesterolemia, unspecified

== ENCOUNTER → 2024-06-25 07:58 | Outpatient (BNVA) | payer MEDICARE, MEDICAID, SELFPAY | PROVIDERS: PCP Internal Medicine; Visit Provider Internal Medicine | DX: E03.9 Hypothyroidism, unspecified (principal); R79.89 Other specified abnormal findings of blood chemistry; E78.00 Pure hypercholesterolemia, unspecified; F31.70 Bipolar disorder, currently in remission, most recent episode unspecified | CPT/HCPCS: 96127; 99212 ==

== ENCOUNTER 2024-10-05 08:59 | Outpatient (REF) | payer MEDICARE, MEDICAID, SELFPAY ==
--- OUTSIDE RECORDS SUMMARY | 2024-10-05 09:17 | XMS_ITS | Patient Health Record ---
[facility] [place] Address [address] [place] [address] Care Team Providers Care Postal Delivery Officer Name Role Phone Driss Santiago Primary Care Provider Jonatan Goncalves Unavailable [phone] Allergies Allergen (clinical drug ingredient) Drug/Non Drug Allergy documented on EMR Reaction Allergy Type Onset Date Status amoxicillin Amoxicillin severe reaction Drug Allergy Active Reason For Referral No Information Medications Medication SIG (Take, Route, Fr equency, Duration) Notes Start Date End Date Status [place] Active Naproxen as needed Active Vitamin B 12 Active diazePAM 5 MG (Schedule IV Drug) Oral; Duration: 30 Active Multi Complete Activ e Synthroid Active LORazepam 1 MG (Schedule IV Drug) Oral; Duration: 30 Active Social History Tobacco Use: Social [...] X ray : Foot, right 3V 10/31/2019 [id number] TENDON SHEATH/LIGAMENT 1 04/03/2019 Insurance Providers Payer Name Payer Address Payer Phone Subscriber Number Group Number Insured Name Patient Relationship to Insured Coverage Start Date Coverage End Date [facility] [address] [facility] [place] [address] [id number] DARIANA SHEA Spouse - patient is the spouse of the insured Medical (General) History Medical History History ICD Code Anemia Anxiety Back,Hip,and Knee pain Depression Numbness Psychiatric disorder raynauds disease thyroid Measles Mumps Chicken pox Surgical History Surgery Date(Month/Year) lumbar laminectomy 1986 section 1986 gastric bypass 2002 gall bladder 2016 T+A 1977
--- OUTSIDE RECORDS SUMMARY | 2024-10-05 09:17 | XMS_ITS | Clinical Summary ---
Author Organization [facility] Address [address] [address] Phone Care Team Providers Care Collateral Specialist Name Role Phone Shahida Trevizo MD Primary Care Provid er Allergies Active Allergy Reactions Criticality Noted Date Comments Amoxicillin Hives 08/21/2016 Cephalosporins Itching,Other (See Comments) 09/2017 Nickel Unknown 07/19/2023 Medications ascorbic acid, vitamin C, (VITAMIN C) 500 MG tablet 1 Active cholecalciferol (VITAMIN D3) 2,000 unit tablet Take 2,000 Units by mouth daily. 2 Active metoclopramide HCl (REGLAN) 10 MG tabletIndication s:Slow transit constipation Take 1 tablet (10 mg total) by mouth 3 (three) times a day. 90 tablet 4 2 Active Additional Information Patient not taking.Reported on 07/19/2023 lurasidone (LATUDA) 40 mg tablet 40 mg. 4 Active lithium (LITHOBID) 300 MG ER tablet Take 600 mg by mouth nightly at bedtime. 4 Active carisoprodol (SOMA) 350 MG tablet 3 (three) times a day as needed. 4 Active diclofenac sodium (SOLARAZE) 3 % Gel Apply 1 Application topically as needed. 4 Active levothyroxine (SYNTHROID, LEVOTHROID) 88 MCG tablet Take 1 tablet by mouth every morning. 4 Active liothyronine (CYTOMEL) 5 MCG tablet 4 Active furosemide (LASIX) 20 MG tablet One tab every other day 30 tablet 2 4 Active Additional Information Patient taking differently: 20 mg Oral Every other day, Hasn't used yet, Reported on 09/20/2023 cyclobenzaprine (FLEXERIL) 10 MG tablet Take 10 mg by mouth as needed. 4 Active Active Problems Problem Noted Date Diagnosed Date Chronic heart failure with preserved ejection fr action 09/20/2023 Class 2 drug-induced obesity without serious comorbidity with body mass index (BMI) of 37.0 to 37.9 in adult 08/10/2021 Assessment & Plan (08/10/2021 3:47 PM EDT): Is a 60-year-old lady who has a history of a gastric bypass and has been steadily gaining weight over the past several years. Patient has gained 26.6 pounds in the past 3 months. She weaned herself off of oxycodone and has been eating marijuana Gummies which she believes are 200 carlee for each 1. She has not been exercising in many years. She is eating a diet that was high in carbohydrate until about 4 days ago when she was told she had a mild pancreatitis and to be on a liquid diet for 4 days. Patient still complains of pinpoint abdominal discomfort which is more of a spasm occasionally with use of the abdominal muscles. I have prescribed an eating plan for the patient to help her to lose weight as well as an exercise plan. She will follow-up with the dietitian in 2 weeks and follow-up with me again in office in 4 weeks timeframe in an effort to get the patient a support system for weight loss. Patient will consume a protein shake or bar at 9 AM and 3 PM and 4 ounces of protein with vegetables or small side salad with oil and vinegar or a vinaigrette or an Armenian dressing at the 12 PM and 6 PM times. She may consume an apple or pear or Mexican yogurt or cottage cheese at 8:00 if needed. Patient will consume at least 64 ounces of water on daily basis. She was told she should exercise 30 to 40 minutes 5 days a week by performing walk away the pound videos. We will eventually add resistance training in efforts to increase her metabolism to get better weight loss. Patient will continue current medications as reviewed. She is not stable is considered obese. Slow transit constipation 05/18/2021 Assessment & Plan (05/18/2021 12:16 PM EDT): 1-year-old lady who I have been treating for obesity for many years. Patient has a history of gastric bypass with recidivism several years following weight loss requiring band over gastric bypass which she did well with and had significant weight loss. Patient then had a gastric band slippage which required us to remove the gastric band. Patient has had recidivism of weight gain recently as well over the past couple of years. Patient is eating poorly and is consuming a significant mount of carbohydrates. Patient does report having persistent heartburn occasionally as well as early satiety and chronic left lower quadrant abdominal pain for the past year. Patient has had several CAT scans that have been negative. Patient most recently had a CAT scan a couple of weeks ago that showed chronic constipation. She also has a history of chronic use of oxycodone for the past 20 years but has recently weaned off of oxycodone. Patient has symptoms of chronic constipation likely related to use of chronic narcotics for so many years. I will refer the patient to Dr. Davis a oceanography teacher at [facility] for further work-up of slow transit and possibly irritable bowel syndrome. Patient will continue current bowel regimen which will include MiraLAX twice daily, stool softener, I have added Reglan 10 mg to be taken twice daily to help with increased bowel motility. I believe the patient's left lower quadrant abdominal pain is associated with her chronic constipation as the stool sits in the descending colon and the sigmoid colon prior to being evacuated through the anus. This is a high pressure zone which is likely distended somewhat and is causing some chronic discomfort. Patient was also encouraged to add formalize exercise at least 30 minutes of exercise 4-5 times weekly. I asked the patient to eat a diet that is very low in carbohydrate consisting and 1/4 cup of carbohydrate once daily. Patient will eat proteins at every meal at 9 AM, 12 PM, 3 PM, and last meal at 6 PM. I will follow up with the patient again in 6 weeks timeframe. She is considered obese and is not stable. S/P gastric bypass 05/18/2021 Obesity (BMI 30-39.9) 05/18/2021 Family History Medical History Relation Comments Diabetes Father Heart disease Maternal Grandmother Vascular disease Maternal Grandmother COPD Mother Heart attack Mother Relation Status Comments Brother Alive Father Maternal Grandmother Mother Sister Alive Social History Tobacco Use Types Packs/Day Years Used Date Smoking Tobacco: Never Smokeless Tobacco: Never Tobacco Cessation:Counseling Given: Not Answered Alcohol Use Standard Drinks/Week Comments Never 0 (1 standard drink = 0.6 oz pur e alcohol) Education Answer Date Recorded Are you interested in more education? Not on naldo e 06/19/2022 Are you concerned about learning? Not on file 06/19/2022 No 06/19/2022 No 06/19/2022 Digital Access Answer Date Recorded No 07/18/2022 No 07/18/2022 Reliable internet access at home? Not on file 07/18/2022 Device with a working camera? Not on file Comments Unknown Sex and Gender Information Value Date Recorded Sex Assigned at Not on file Legal Sex Female 3:48 PM EDT Gender Identity Not on file Sexual Orientation Not on file Last Filed Vital Signs Vital Sign Reading Time Taken Comments Blood Pressure 102/60 09/20/2023 8:47 AM EDT Pulse 101 09/20/2023 8:47 AM EDT Temperature 36.7 C (98 F) 08/10/2021 3:06 PM EDT Respiratory Rate - - Oxygen Saturation 97% 09/20/2023 8:47 AM EDT Inhaled Oxygen Concentration - - Weight 113.4 kg (250 lb) 09/20/2023 8:47 AM EDT Height 175.3 cm (5' 9.02 ) 09/20/2023 8:47 AM ED T Body Mass Index 36.9 09/20/2023 8:47 AM EDT Plan of Treatment Health Maintenance Due Date Last Done Comments Adult Td,Tdap Booster 1960 CREATININE LEVEL 1959 LIPID PANEL 1959 LITHIUM LEVEL 1959 TSH LEVEL 1959 DEPRESSION SCREENING 1971 HEPATITIS C SCREENING 08/22/1977 HIV ONE-TIME SCREENING (18-6 5 YEARS) 08/22/1977 PNEUMOCOCCAL VACCINES (50+ y ears) (1 of 2 - PCV) 08/22/1978 SCREENING FOR DIABETES 08/22/1994 MAMMOGRAM 1999 COLOGUARD 08/22/2004 COLONOSCOPY 08/22/2004 COLORECTAL CANCER SCREENING 08/22/2004 FIT TEST 08/22/2004 FOBT 08/22/2004 SIGMOIDOSCOPY 08/22/2004 VIRTUAL COLONOSCOPY 08/22/2004 ZOSTER VACCINES (1 of 2) 08/22/2009 RSV VACCINE (1 - Risk 60-74 years 1-dose series) 2019 COVID-19 VACCINE (1 - 2023-2 5 season) 2023 OSTEOPOROSIS SCREENING INITI AL (ONE-TIME) 08/22/2024 SMOKING STATUS SCREENING (On ce After 26 Yrs) Completed 09/20/2023 HEPATITIS A VACCINES Aged Out No long er eligible based on patient's age to complete this topic HIB VACCINES Aged Out No longer eligi ble based on patient's age to complete this topic MENINGOCOCCAL VACCINES (ACWY) Aged Out No longer eligible based on patient's age to complete this topic MENINGOCOCCAL VACCINES (B) Aged Out N o longer eligible based on patient's age to complete this topic Medical Devices Not on file Insurance MEDICARE PART A & B [facility]LY [facility] FULL MEDICARE PART A & B [employer] NET FULL MEDICARE PART A & B [employer] NET FULL MEDICARE PART A & B [facility] PART A & B [employer] [facility] NET FULL MEDICARE PART A & B [facility]LY [facility] FULL Care Teams Collateral Specialist Relationship Specialty Start Date End Date Shahida Trevizo MD [address] [place] [address] PCP - General Internal Medicine 06/16/23 Additional Source Comments The information contained in this document represents components of the legal health record. It is not the complete legal health record.[facility]
--- OUTSIDE RECORDS SUMMARY | 2024-10-05 09:18 | XMS_ITS ---
Author Name [facility] Organization Unknown History of Medication Use Medication Directions Dispensed Refills Start Date End Date Stat us Kenalog 40 mg/mL suspension for injection Take 1 mL by injection route. 03/01/2023 active lidocaine (PF) 10 mg/mL (1 %) injection solution Take 2 mL by injection route. 03/01/2023 active betamethasone dipropionate 0.05 % topical cream PLEASE SEE ATTACHED FOR DETAILED DIRECTIONS active Children's Acetaminophen 160 mg/5 mL oral liquid TAKE 20 ML BY MOUTH EVERY 6 HOURS FOR 3 DAYS active ciprofloxacin 500 mg tablet TAKE 1 TABLET BY MOUTH TWICE A DAY active diazepam 5 mg tablet TAKE 1 TABLET BY MOUTH THREE TIMES A DAY active gabapentin 300 mg capsule TAKE 1 CAPSULE BY MOUTH EVERY DAY AT NIGHT TIME active lithium carbonate ER 300 mg tablet,extended release TAKE 3 TABLETS BY MOUTH AT BEDTIME active lorazepam 1 mg tablet TAKE HALF TO ONE TABLET ORALLY TWICE DAILY NEEDED FOR ANXIETY active lurasidone 40 mg tablet TAKE 1 TABLET BY MOUTH EVERYDAY AT BEDTIME active oxycodone 5 mg tablet TAKE 1 TABLET BY MOUTH EVERY DAY NEEDED FOR PAIN active oxycodone-acetaminophe n 5 mg-325 mg tablet TAKE 1 TABLET BY MOUTH EVERY 6 HOURS NEEDED FOR PAIN active prednisone 10 mg tablet TAKE 4 TABS DAILY X3 DAYS, 3 TABS DAILY X3 DAYS, 2 TABS DAILY X3 DAYS, 1 TAB DAILY X3 DAYS active zinc gluconate 30 mg tablet TAKE 1 TABLET BY MOUTH EVERY DAY active Allergies Allergen Reaction Severity Comment Documented Date Source Statu s AMOXICILLIN [facility] NICKEL [facility] Problems Problem Status Onset Date Problem Type Date of Resoluti on Source Secondary osteoarthritis active 2023-03-01 ProblemAct [facility] Osteoarthritis of right knee joint active 2023-03-01 ProblemAct [facility] Arthritis of knee active 2023-03-04 ProblemAct [facility] Encounters Encounter Type Encounter Reason Primary Diagnosis Location Date Ambulatory [facility] 03/01/2023 Ambulatory [facility] 03/01/2023 Ambulatory [facility] 03/01/2023 Ambulatory [facility] [place] 03/01/2023 Ambulatory [facility] [place] 02/24/2023 Ambulatory [facility] [place] 02/24/2023 Ambulatory [facility] [place] 02/15/2023 Ambulatory [facility] [place] 04/28/2022
--- OUTSIDE RECORDS SUMMARY | 2024-10-05 09:18 | XMS_ITS | Clinical Summary ---
Author Organization [facility] Address [address] [place] [address] Care Team Providers Care Motorcycle Mechanic Apprentice Name Role Phone Driss Santiago MD Primary Care Provider [phone] Allergies Active Allergy Reactions Criticality Noted Date [...] (2 - Td or Tdap) 10/21/2022 10/21/2012 Fall Risk Assessment 08/22/2024 Osteoporosis Screening (DEXA Scan) 08/22/2024 Pneumococcal Vaccine (1 of 1 - PCV) 08/22/2024 Influenza Vaccine (#1) 2024 3, 12/03/2009, 02/07/2009 RSV Adult > 60+ Yrs or (1 [...] age to complete this topic Care Teams Motorcycle Mechanic Apprentice Relationship Specialty Start Date End Date Driss Santiago MD [address] [place] [address] [address] [facility] [place] [address] PCP - General Internal Medicine 10/17/19
--- OUTSIDE RECORDS SUMMARY | 2024-10-05 09:18 | XMS_ITS | Clinical Summary ---
Author Organization [facility] Address [address] [place] [address] Phone Care Team Providers Care Physical Chemistry Professor Name Role Phone Driss Santiago MD Primary Care Provider Allergies Active Allergy Reactions Criticality Noted Date Comments Amoxicillin 12/27/2023 Cefuroxime Itching 04/28/2017 Cephalosporins Itching 09/07/2017 Other Reaction(s): Other (See Comments) Medications levothyroxine (SYNTHROID, LEVOTHROID) 88 mcg tablet Take 1 Tablet by mouth daily. - Oral Active cholecalciferol , vitamin D3, (VITAMIN D3 ORAL) D3-50 1.25 MG (49375 UT) Cap TAKE 1 CAPSULE BY MOUTH [...] Fungal rash of trunk 12/27/2023 Aspiration pneumonia ([facility] V24, [facility] V28) 12/27/2023 Hypothyroidism 12/27/2023 Bipolar affective disorder ([facility] V24, [facility] V28) 12/27/2023 Constipation 12/27/2023 Gassiness 12/27/2023 Epigastric pain 12/27/2023 Encounters Date Type Department Care Team Description 08/29/2024 11:16 AM EDT - 08/29/2024 11:59 PM EDT Hospital Encounter [facility] [address] [place] [id number] Aspiration pneumonia, unspecified aspiration pneumonia type, unspecified laterality, unspecified part of lung ([facility] V24, [facility] V28) Discharge Disposition: Home or Self Care 08/13/2024 Telephone Pulmonolgy - [facility] [address] [place] [address] Angela Painter MD provider call back from Last 3 Months Immunizations Name Administration Dates Next Due Influenza trivalent, with pr eservative (Fluzone; Afluria) 6mo and older 02/07/2009 Influenza, live, intranasal, trivalent (FluMist) 2yo to less than 50yo 11/17/2012,12/03/2009,02/07/2009 Td Tetanus diptheria (Tdvax) 7yo and older 03/28 Surgical History Surgery Date Site/Laterality Comments GASTRIC BYPASS 2001 PROCEDURE: MT GASTRIC RSTCV W/BYP W/SM INT RCNSTJ LIMIT ABSRPJ COLONOSCOPY 09/09/08 PROCEDURE: HISTORICAL COLONOSCOPY; COMMENT: hemorrhoids; repeat in ten years OTHER SURGICAL HISTORY 02/25/2009 PROCEDURE: MT HYSTEROSCOPY LYSIS INTRAUTERINE ADHESIONS SECTION PROCEDURE: HISTORICAL DELIVERY; COMMENT: x 2 TONSILLECTOMY PROCEDURE: HISTORICAL TONSILLECTOMY; COMMENT: and Adenoidectomy OTHER SURGICAL HISTORY 08/08/2014 PROCEDURE: MT LAPS GASTRIC RESTRICTIVE PROCEDURE PLACE DEVICE; COMMENT: Dr Bello, took out in 2018 LUMBAR LAMINECTOMY PROCEDURE: HISTORICAL LUMB LAMINECTOMY OTHER SURGICAL HISTORY 2001 PROCEDURE: MT LAPS GSTR RSTCV PX W/BYP THEO-EN-Y LIMB <150 CM; COMMENT: Dr PRITCHETT Medical History Medical History Date Comments Backache, unspecified DX:Backach e, unspecified ADD (attention deficit disorder) 01/16/2007 DX:ADD (attention deficit disorder); COMMENT: Follows with [facility] Osteoarthritis of both knees 09/07/2017 DX: Osteoarthritis [...] 118 04/27/2024 8:46 AM EST Temperature 36.5 C (97.7 F) 04/27/2024 8:46 AM EST Respiratory Rate 16 04/27/2024 8:46 AM EST Oxygen Saturation 100% 04/27/2024 8:46 AM EST Inhaled Oxygen Concentration - - Weight 107 kg (236 lb) 04/27/2024 8:46 AM EST Height 175.3 cm (5' 9 ) 04/27/2024 8:46 AM EST Body Mass Index 34.85 04/27/2024 8:46 AM EST Plan of Treatment Upcoming Encounters Date Type Department Care Team (Late st Contact Info) Description 11/06/2024 11:15 AM EDT Office Visit Pulmonolgy - [facility] [address] [place] [phone] Angela Painter MD [facility] [address] [place] [address] Health Maintenance Due Date Last Done Comments Breast Cancer Screening 1960 Pneumococcal Vaccine: 50+ Years (1 of 2 - PCV) 08/22/1978 Zoster Vaccines (1 of 2) 08/22/2009 Cervical Cancer Screening: Pap Smear 09/12/2012 09/12/2009, 09/12/2009 Hepatitis C Screening 01/29/2022 Medicare Annual Wellness Visit 01/29/2022 Osteoporosis Screening (Bone Density Screening) 01/29/2022 Social Influencers of Health Screening 01/29/2022 Cholesterol Screening (Lipid Panel) 12/03/2022 12/03/2017 COVID-19 Vaccine ( - season) 2023 01/27/2021, 05/14/2020, 04/22/2020 Depression Screening 02/22/2024 Falls Risk Assessment 08/22/2024 Influenza Vaccine (#1) 2024 , 01/18/2023, 11/27/2021, Additional history exists Colorectal Cancer Screening: Colonoscopy 03/09/2028 03/09/2018 DTaP,Tdap,and Td Vaccines (4 - Td or Tdap) 01/23/2030 01/24/2020, 06/02/2018, 03/28/2003 RSV Immunization Adult Patients Completed 01/18/2023 HIB Vaccines Aged Out No longer eligi [...] Diagnosis Comments XR CHEST 2 VIEWS Routine 08/29/2024 11:2 6 AM EDT Aspiration pneumonia, unspecified aspiration pneumonia type, unspecified laterality, unspecified part of lung ([facility] V24, [facility] V28) COLONOSCOPY Routine 03/09/2018 LIPID PANEL Routine 12/03/2017 HPV Routine 09/12/2009 from Last 3 Months or Most Recently Relevant to Health Maintenance Results * XR Chest 2 Views (08/29/2024 11:26 AM EDT) Anatomical Region Laterality Modality Body Radiographic Jess ging 08/29/2024 11:3 0 AM EDT Impressions 08/29/2024 11:32 AM EDT No acute pulmonary disease. Mild linear scarring in the left midlung, unchanged since 04/22/2022. Code 70164 -------- FINAL REPORT -------- Dictated By: Aris Ortiz Dictated Date: 08/29/2024 11:30 ET Assigned Physician: Aris Ortiz Reviewed and Electronically Signed By: Aris Ortiz Signed Date: 08/29/2024 11:32 ET Workstation ID: [id number] Transcribed By: Self Edit Transcribed Date: 08/29/2024 11:30 ET Narrative 08/29/2024 11:32 AM EDT HISTORY: The patient is a 64-year-old female for follow-up of pneumonia. Please note that the most recent prior chest radiograph obtained at this institution was performed on 04/22/2022. FINDINGS: PA and lateral radiographs of the chest demonstrate mild degenerative changes of the thoracic spine as also seen on the prior chest radiograph performed 04/22/2022. The cardiac and mediastinal contours are within normal limits. Again seen is mild linear scarring in the left midlung. The lungs are otherwise clear and the costophrenic angles are clear. Procedure Note Aris Ortiz MD - 08/29/2024 HISTORY: The patient is a 64-year-old female for follow-up of pneumonia.Please note that the most recent prior chest radiograph obtained at [facility] was performed on 04/22/2022. FINDINGS: PA and lateral radiographs of the chest demonstrate milddegenerative changes of the thoracic spine as also seen on the prior chestradiograph performed 04/22/2022. The cardiac and mediastinal contours arewithin normal limits. Again seen is mild linear scarring in the leftmidlung. The lungs are otherwise clear and the costophrenic angles areclear. IMPRESSION: No acute pulmonary disease. Mild linear scarring in the left midlung,unchanged since 04/22/2022. Code 00461 -------- FINAL REPORT -------- Dictated By: Aris Ortiz Dictated Date: 08/29/2024 11:30 ET Assigned Physician: Aris Ortiz Reviewed and Electronically Signed By: Aris Ortiz Signed Date: 08/29/2024 11:32 ET Workstation ID: [id number] Transcribed By: Self Edit Transcribed Date: 08/29/2024 11:30 ET Angela Painter MD IMG XR PROCEDURES Final Result * Colonoscopy (03/09/2018) [facility] Colonoscopy no interpretation , abstracted Anatomical Region Laterality Modality Other Historical Provider HEALTH MAINTENANCE Final Result * (ABNORMAL) Lipid panel (12/03/2017) [facility] LDL/HDL Ratio 2 0 - 4 Triglycerides 82 0 - 150 mg/dL Cholesterol 202(A) 0 - 200 mg/dL HDL 83 >=40 mg/dL LDL Cholesterol 103(A) 0 - 100 mg/dL Blood Venous blood specimen / Unknown Historical Provider LAB BLOOD ORDERABLES Shelly l Result * Cervical Cancer Screening: HPV (09/12/2009) [facility] Cervical Cancer Screening: HPV abstracted, negative Historical Provider HEALTH MAINTENANCE Final Result from Last 3 Months or Most Recently Relevant to Health Maintenance Insurance MEDICAID - [place] MEDICARE Care Teams Physical Chemistry Professor Relationship Specialty Start Date End Date Driss Santiago MD [address] [place] [address] Dr [address] [facility] [place] [address] PCP - General Internal Medicine 02/08/17
[2024-10-05 10:17] LABS: Alanine Aminotransferase 9 U/L (0-31); Albumin Level 3.9 g/dL (3.5-5.0); Alkaline Phosphatase 117 U/L (39-117); Anion Gap 13 (12-20); Aspartate Amino Transferase 17 U/L (5-31); Blood Urea Nitrogen 18 mg/dL (9-16); Calcium 9.1 mg/dL (8.4-10.2); Carbon Dioxide 27 mmol/L (22-29); Chloride 107 mmol/L (96-108); Cholesterol 166 mg/dL (<200); Estimated Glomerular Filt Rate > 60; HDL Cholesterol 41 mg/dL (>40); Potassium 4.6 mmol/L (3.3-5.1); Sodium 142 mmol/L (135-145); Total Protein 6.6 g/dL (6.5-8.0); Triglycerides 119 mg/dL (<150)
[2024-10-05 10:36] LABS: Thyroid Stimulating Hormone 0.14 uIU/mL (0.32-4.0)
== END 2024-10-05 09:00 | disposition home or self-care (01) ==
LOC: HO.LAB 08:59
PROVIDERS: PCP Internal Medicine; Visit Provider Internal Medicine
DX: M85.80 Other specified disorders of bone density and structure, unspecified site (principal); E78.5 Hyperlipidemia, unspecified; E03.9 Hypothyroidism, unspecified; E55.9 Vitamin D deficiency, unspecified; E66.01 Morbid (severe) obesity due to excess calories; Z68.36 Body mass index [BMI] 36.0-36.9, adult
CPT/HCPCS: 36415; 80053; 80061; 82306; 84443

== ENCOUNTER 2024-10-10 08:45 | Outpatient (AMB) | payer MEDICARE, MEDICAID, SELFPAY ==
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
--- OUTSIDE RECORDS SUMMARY | 2024-10-10 09:26 | XMS_ITS | Clinical Summary ---
Author Organization [facility] Address [address] [place] [address] Care Team Providers Care Public Speaking Professor Name Role Phone Driss Santiago MD Primary Care Provider [phone] Allergies Active Allergy Reactions Criticality Noted Date [...] age to complete this topic Care Teams Public Speaking Professor Relationship Specialty Start Date End Date Driss Santiago MD [address] [place] [address] [address] [facility] [place] [address] PCP - General Internal Medicine 10/17/19
--- OUTSIDE RECORDS SUMMARY | 2024-10-10 09:26 | XMS_ITS | Clinical Summary ---
Author Organization [facility] Address [address] [address] Phone Care Team Providers Care Active Directory Engineer Name Role Phone Shahida Trevizo MD Primary [...] and vinegar or a vinaigrette or an Gabonese dressing at the 12 PM and 6 PM times. She may consume an apple or pear or Angolan yogurt or cottage cheese at 8:00 if [...] refer the patient to Dr. Davis a day habilitation supervisor at for further work-up of slow transit and [...] cm (5' 9.02 ) 09/20/2023 8:47 AM E DT Body Mass Index 36.9 09/20/2023 8:47 AM [...] file Insurance MEDICARE PART A & B [facility] FULL MEDICARE PART A & B [employer] NET FULL MEDICARE PART A & B [employer] NET FULL MEDICARE PART A & B [employer] [facility] FULL MEDICARE PART A & B [employer] [facility] NET FULL MEDICARE PART A & B [facility] FULL Care Teams Active Directory Engineer Relationship Specialty Start Date End Date Shahida Trevizo MD [address] [place] [address] PCP - General Internal Medicine 06/16/23 Additional Source Comments The information contained in this document represents components of the legal health record. It is not the complete legal health record.[facility]
--- OUTSIDE RECORDS SUMMARY | 2024-10-10 09:26 | XMS_ITS | Patient Health Record ---
[facility] [place] Address [address] [facility] [place] [address] Care Team Providers Care Chemical Plant Worker Name Role Phone Driss Santiago Primary Care Provider Jonatan Goncalves Unavailable [phone] Allergies Allergen (clinical drug ingredient) Drug/Non Drug Allergy documented on EMR Reaction Allergy Type Onset Date Status amoxicillin Amoxicillin severe reaction Drug Allergy Active Reason For Referral No Information Medications Medication SIG (Take, Route, Fr equency, Duration) Notes Start Date End Date Status [place] Active Naproxen as needed Active Vitamin B [...] X ray : Foot, right 3V 10/31/2019 [id number] TENDON SHEATH/LIGAMENT 1 04/03/2019 Insurance Providers Payer Name Payer Address Payer Phone Subscriber Number Group Number Insured Name Patient Relationship to Insured Coverage Start Date Coverage End Date [facility] [address] [place] [address] [phone] [id number] DARIANA SHEA Spouse - patient is the spouse of the insured Medical (General) History Medical History History ICD Code Anemia Anxiety Back,Hip,and Knee pain Depression Numbness Psychiatric disorder raynauds disease thyroid Measles Mumps Chicken pox Surgical History Surgery Date(Month/Year) lumbar laminectomy 1986 section 1986 gastric bypass 2002 gall bladder 2016 T+A 1977
--- OUTSIDE RECORDS SUMMARY | 2024-10-10 09:26 | XMS_ITS | Clinical Summary ---
Author Organization [address] [facility] Address [address] [place] [address] Phone Care Team Providers Care Fringe Weaver Name Role Phone Driss Santiago MD Primary Care Provider [phone] Allergies Active Allergy Reactions Criticality Noted Date Comments Amoxicillin 12/27/2023 Cefuroxime Itching 04/28/2017 Cephalosporins Itching 09/07/2017 Other Reaction(s): Other (See Comments) Medications levothyroxine (SYNTHROID, LEVOTHROID) 88 mcg tablet Take 1 Tablet by mouth daily. - Oral Active cholecalciferol , vitamin D3, (VITAMIN D3 ORAL) D3-50 1.25 MG (79818 UT) Cap TAKE 1 CAPSULE BY MOUTH [...] Fungal rash of trunk 12/27/2023 Aspiration pneumonia ([facility] V24, [facility] V28) 12/27/2023 Hypothyroidism 12/27/2023 Bipolar affective disorder ([facility] V24, [facility] V28) 12/27/2023 Constipation 12/27/2023 Gassiness 12/27/2023 Epigastric pain 12/27/2023 Encounters Date Type Department Care Team Description 08/29/2024 11:16 AM EDT - 08/29/2024 11:59 PM EDT Hospital Encounter [facility] Xray [address] [place] [id number] Aspiration pneumonia, unspecified aspiration pneumonia type, unspecified laterality, unspecified part of lung ([facility] V24, [facility] V28) Discharge Disposition: Home or Self Care 08/13/2024 Telephone Pulmonolgy - [place] [address] [facility] [address] [place] [address] Angela Painter MD provider call back from Last 3 Months Immunizations Name Administration Dates Next Due Influenza trivalent, with pr eservative (Fluzone; Afluria) 6mo and older 02/07/2009 Influenza, live, intranasal, trivalent (FluMist) 2yo to less than 50yo 11/17/2012,12/03/2009,02/07/2009 Td Tetanus diptheria (Tdvax) 7yo and older 03/28 Surgical History Surgery Date Site/Laterality Comments GASTRIC BYPASS 2001 PROCEDURE: ID GASTRIC RSTCV W/BYP W/SM INT RCNSTJ LIMIT ABSRPJ COLONOSCOPY 09/09/08 PROCEDURE: HISTORICAL COLONOSCOPY; COMMENT: hemorrhoids; repeat in ten years OTHER SURGICAL HISTORY 02/25/2009 PROCEDURE: ID HYSTEROSCOPY LYSIS INTRAUTERINE ADHESIONS SECTION PROCEDURE: HISTORICAL DELIVERY; COMMENT: x 2 TONSILLECTOMY PROCEDURE: HISTORICAL TONSILLECTOMY; COMMENT: and Adenoidectomy OTHER SURGICAL HISTORY 08/08/2014 PROCEDURE: ID LAPS GASTRIC RESTRICTIVE PROCEDURE PLACE DEVICE; COMMENT: Dr Bello, took out in 2018 LUMBAR LAMINECTOMY PROCEDURE: HISTORICAL LUMB LAMINECTOMY OTHER SURGICAL HISTORY 2001 PROCEDURE: ID LAPS GSTR RSTCV PX W/BYP THEO-EN-Y LIMB <150 CM; COMMENT: Dr PRITCHETT Medical History Medical History Date Comments Backache, unspecified DX:Backach e, unspecified ADD (attention deficit disorder) 01/16/2007 DX:ADD (attention deficit disorder); COMMENT: Follows with [facility] Osteoarthritis of both knees 09/07/2017 DX: Osteoarthritis [...] 11:15 AM EDT Office Visit Pulmonolgy - [place] [address] [facility] [address] [place] [phone] Angela Painter MD [address] [facility] [address] [place] [address] Health Maintenance Due Date Last Done Comments [...] type, unspecified laterality, unspecified part of lung ([facility] V24, [facility] V28) COLONOSCOPY Routine 03/09/2018 LIPID PANEL Routine [...] the left midlung, unchanged since 04/22/2022. Code 60352 -------- FINAL REPORT -------- Dictated By: Aris Ortiz Dictated Date: 08/29/2024 11:30 ET Assigned Physician: Aris Ortiz Reviewed and Electronically Signed By: Aris Ortiz Signed Date: 08/29/2024 11:32 ET Workstation ID: [id number] Transcribed By: Self Edit Transcribed Date: 08/29/2024 [...] most recent prior chest radiograph obtained at [facility] was performed on 04/22/2022. FINDINGS: PA [...] in the left midlung,unchanged since 04/22/2022. Code 51627 -------- FINAL REPORT -------- Dictated By: Aris Ortiz Dictated Date: 08/29/2024 11:30 ET Assigned Physician: Aris Ortiz Reviewed and Electronically Signed By: Aris Ortiz Signed Date: 08/29/2024 11:32 ET Workstation ID: [id number] Transcribed By: Self Edit Transcribed Date: 08/29/2024 11:30 ET Angela Painter MD IMG XR PROCEDURES Final Result * Colonoscopy (03/09/2018) [facility] Colonoscopy no interpretation , abstracted Anatomical Region Laterality Modality Other Historical Provider HEALTH MAINTENANCE Final Result * (ABNORMAL) Lipid panel (12/03/2017) [facility] LDL/HDL Ratio 2 0 - 4 Triglycerides 82 0 - 150 mg/dL Cholesterol 202(A) 0 - 200 mg/dL HDL 83 >=40 mg/dL LDL Cholesterol 103(A) 0 - 100 mg/dL Blood Venous blood specimen / Unknown Historical Provider LAB BLOOD ORDERABLES Shelly l Result * Cervical Cancer Screening: HPV (09/12/2009) [facility] Cervical Cancer Screening: HPV abstracted, negative Historical Provider HEALTH MAINTENANCE Final Result from Last 3 Months or Most Recently Relevant to Health Maintenance Insurance MEDICAID - [place] MEDICARE Care Teams Fringe Weaver Relationship Specialty Start Date End Date Driss Santiago MD [address] [place] [address] [address] [facility] [place] [address] PCP - General Internal Medicine 02/08/17
== END 2024-10-10 09:12 | disposition home or self-care (01) ==
LOC: HO.HSM 08:45
PROVIDERS: PCP Internal Medicine; Visit Provider Psychiatry & Neurology Neurology
DX: G62.9 Polyneuropathy, unspecified (principal); M48.061 Spinal stenosis, lumbar region without neurogenic claudication; R41.3 Other amnesia; S06.9XAA Unspecified intracranial injury with loss of consciousness status unknown, initial encounter
CPT/HCPCS: 99214

== ENCOUNTER → 2024-10-10 08:45 | Outpatient (BNVA) | payer MEDICARE, MEDICAID, SELFPAY | PROVIDERS: PCP Internal Medicine; Visit Provider Psychiatry & Neurology Neurology | DX: M48.061 Spinal stenosis, lumbar region without neurogenic claudication (principal); G62.9 Polyneuropathy, unspecified; R41.3 Other amnesia; S06.9XAA Unspecified intracranial injury with loss of consciousness status unknown, initial encounter | CPT/HCPCS: 99212 ==

== ENCOUNTER 2024-10-17 08:27 | Outpatient (REF) | payer MEDICARE, MEDICAID, SELFPAY ==
--- NOTE | 2024-10-17 08:33 | EEG_ITS ---
Reason: TBI, memory loss History: Medications: albuterol, sulfate, cholecalciferol, cyclobenzaprine, levothyroxine, liothyronine, lurasidone, tirzepatide The waking background activity consists of a moderate voltage 10-11 hertz posterior alpha frequency intermixed anteriorly with low-voltage fast frequencies and muscle artifacts. Recurrent high-voltage surging of activity with sharp configuration is seen from both temporal regions throughout the record intermittently. Photic stimulation and hyperventilation are without activation. Impression: This is an abnormal EEG due to recurrent sharp configuration burst of high-voltage theta from both temporal regions suggesting cerebral irritability in the temporal lobes bilaterally. Clinical correlation is suggested MTDD
--- OUTSIDE RECORDS SUMMARY | 2024-10-17 08:49 | XMS_ITS | Clinical Summary ---
Author Organization 175 [facility] Address [address] [place] [address] Phone Care Team Providers Care Weatherization Field Technician Name Role Phone Driss Santiago MD Primary Care Provider [phone] Allergies Active Allergy Reactions Criticality Noted Date Comments Amoxicillin 12/27/2023 Cefuroxime Itching 04/28/2017 Cephalosporins Itching 09/07/2017 Other Reaction(s): Other (See Comments) Medications levothyroxine (SYNTHROID, LEVOTHROID) 88 mcg tablet Take 1 Tablet by mouth daily. - Oral Active cholecalciferol , vitamin D3, (VITAMIN D3 ORAL) D3-50 1.25 MG (46519 UT) Cap TAKE 1 CAPSULE BY MOUTH [...] Fungal rash of trunk 12/27/2023 Aspiration pneumonia ([facility] V24, [facility] V28) 12/27/2023 Hypothyroidism 12/27/2023 Bipolar affective disorder ([facility] V24, [facility] V28) 12/27/2023 Constipation 12/27/2023 Gassiness 12/27/2023 Epigastric pain 12/27/2023 Encounters Date Type Department Care Team Description 08/29/2024 11:16 AM EDT - 08/29/2024 11:59 PM EDT Hospital Encounter [facility] Xray [address] [place] [phone] Aspiration pneumonia, unspecified aspiration pneumonia type, unspecified laterality, unspecified part of lung ([facility] V24, [facility] V28) Discharge Disposition: Home or Self Care 08/13/2024 Telephone Pulmonolgy - [place] [address] [employer] [address] [place] [address] Angela Painter MD from Last 3 Months Immunizations Name Administration Dates Next Due Influenza trivalent, with pr eservative (Fluzone; Afluria) 6mo and older 02/07/2009 Influenza, live, intranasal, trivalent (FluMist) 2yo to less than 50yo 11/17/2012,12/03/2009,02/07/2009 Td Tetanus diptheria (Tdvax) 7yo and older 03/28 Surgical History Surgery Date Site/Laterality Comments GASTRIC BYPASS 2001 PROCEDURE: [place] GASTRIC RSTCV W/BYP W/SM INT RCNSTJ LIMIT ABSRPJ COLONOSCOPY 09/09/08 PROCEDURE: HISTORICAL COLONOSCOPY; COMMENT: hemorrhoids; repeat in ten years OTHER SURGICAL HISTORY 02/25/2009 PROCEDURE: [place] HYSTEROSCOPY LYSIS INTRAUTERINE ADHESIONS SECTION PROCEDURE: HISTORICAL DELIVERY; COMMENT: x 2 TONSILLECTOMY PROCEDURE: HISTORICAL TONSILLECTOMY; COMMENT: and Adenoidectomy OTHER SURGICAL HISTORY 08/08/2014 PROCEDURE: [place] LAPS GASTRIC RESTRICTIVE PROCEDURE PLACE DEVICE; COMMENT: Dr Bello, took out in 2018 LUMBAR LAMINECTOMY PROCEDURE: HISTORICAL LUMB LAMINECTOMY OTHER SURGICAL HISTORY 2001 PROCEDURE: [place] LAPS GSTR RSTCV PX W/BYP EUFEMIA-EN-Y LIMB <150 CM; COMMENT: Dr PRITCHETT Medical History Medical History Date Comments Backache, unspecified DX:Backach e, unspecified ADD (attention deficit disorder) 01/16/2007 DX:ADD (attention deficit disorder); COMMENT: Follows with [facility] Osteoarthritis of both knees 09/07/2017 DX: Osteoarthritis of both knees Depression 01/11/2005 DX:Depression Multilevel degenerative disc disease 01/11/2005 DX:Multilevel degenerative disc disease S/P gastric bypass 07/13/2001 DX:S/P gastri c bypass; COMMENT: Dr Walt Venegas-en y Constipation DX:Constipation Gassiness DX:Gassiness History of [...] Description 11/06/2024 11:15 AM EDT [facility] [address] [place] [address] Angela Painter MD [address] [place] [phone] Health Maintenance Due Date Last Done Comments [...] Vaccine ( season) 2023 01/27/2021, 05/14/2020, 04/22/2020 Depression Screening [...] type, unspecified laterality, unspecified part of lung ([facility] V24, [facility] V28) HM COLONOSCOPY Routine 03/09/2018 LIPID PANEL [...] the left midlung, unchanged since 04/22/2022. Code 51238 -------- FINAL REPORT -------- Dictated By: Aris Ortiz Dictated Date: 08/29/2024 11:30 ET Assigned Physician: Aris Ortiz Reviewed and Electronically Signed By: Aris Ortiz Signed Date: 08/29/2024 11:32 ET Workstation ID: [id number] Transcribed By: Self Edit Transcribed Date: 08/29/2024 [...] in the left midlung,unchanged since 04/22/2022. Code 98051 -------- FINAL REPORT -------- Dictated By: Aris Ortiz Dictated Date: 08/29/2024 11:30 ET Assigned Physician: Aris Ortiz Reviewed and Electronically Signed By: Aris Ortiz Signed Date: 08/29/2024 11:32 ET Workstation ID: [id number] Transcribed By: Self Edit Transcribed Date: 08/29/2024 11:30 ET Angela Painter MD IMG XR PROCEDURES Final Result * Colonoscopy (03/09/2018) Pathologist [facility] Colonoscopy no interpretation , abstracted Anatomical Region Laterality Modality Other Historical Provider HEALTH MAINTENANCE Final Result * (ABNORMAL) Lipid panel (12/03/2017) [facility] LDL/HDL Ratio 2 0 - 4 Triglycerides 82 0 - 150 mg/dL Cholesterol 202(A) 0 - 200 mg/dL HDL 83 >=40 mg/dL LDL Cholesterol 103(A) 0 - 100 mg/dL Blood Venous blood specimen / Unknown Historical Provider LAB BLOOD ORDERABLES Shelly l Result * Cervical Cancer Screening: HPV (09/12/2009) Pathologist [facility] Cervical Cancer Screening: HPV abstracted, negative Historical Provider HEALTH MAINTENANCE Final Result from Last 3 Months or Most Recently Relevant to Health Maintenance Insurance [place] [id number] MEDICAID - [place] MEDICARE Care Teams Weatherization Field Technician Relationship Specialty Start Date End Date Driss Santiago MD [address] [place] [address] [address] [facility] [place] [address] PCP - General Internal Medicine 02/08/17
--- OUTSIDE RECORDS SUMMARY | 2024-10-17 08:49 | XMS_ITS | Patient Health Record ---
Author Organization [facility] kely B[facility] Address [address] [place] [address] Care Team Providers Care Box Attacher Name Role Phone Driss Santiago Primary Care Provider Jonatan Goncalves Unavailable [phone] Allergies Allergen (clinical drug ingredient) Drug/Non Drug Allergy documented on EMR Reaction Allergy Type Onset Date Status amoxicillin Amoxicillin severe reaction Drug Allergy Active Reason For Referral No Information Medications Medication SIG (Take, Route, Fr equency, Duration) Notes Start Date End Date Status [place] Active Naproxen as needed Active Vitamin B [...] X ray : Foot, right 3V 10/31/2019 [id number] TENDON SHEATH/LIGAMENT 1 04/03/2019 Insurance Providers Payer Name Payer Address Payer Phone Subscriber Number Group Number Insured Name Patient Relationship to Insured Coverage Start Date Coverage End Date [facility] [address] [place] [address] [phone] [id number] DARIANA SHEA Spouse - patient is the spouse of the insured Medical (General) History Medical History History ICD Code Anemia Anxiety Back,Hip,and Knee pain Depression Numbness Psychiatric disorder raynauds disease thyroid Measles Mumps Chicken pox Surgical History Surgery Date(Month/Year) lumbar laminectomy 1986 section 1986 gastric bypass 2002 gall bladder 2016 T+A 1977
--- OUTSIDE RECORDS SUMMARY | 2024-10-17 08:49 | XMS_ITS | Encounter Summary ---
Author Organization [facility] Address [address] [place] [address] [place] [address] Phone Care Team Providers Care Account Installer Name Role Phone Shahida Trevizo MD Primary Care Provid er Encounter Details Date Type Department Care Team ([facility] st Contact Info) Description 06/16/2023 Procedure Pass Echo Lab [address] [place] [address] Social History Tobacco Use Types Packs/Day Years Used Date Smoking Tobacco: Never Smokeless Tobacco: Never Alcohol Use Standard Drinks/Week Comments Never 0 [...] on file Sexual Orientation Not on file documented as of this encounter Plan of Treatment Not on file documented as of this encounter Visit Diagnoses Not on filedocumented in this encounter Care Teams Account Installer Relationship Specialty Start Date End Date Shahida Trevizo MD [address] [place] [address] PCP - General Internal Medicine 06/16/23 documented as of this encounter Additional Source Comments The information contained in this document represents components of the legal health record. It is not the complete legal health record.[facility]
--- OUTSIDE RECORDS SUMMARY | 2024-10-17 08:49 | XMS_ITS | Clinical Summary ---
Author Organization [facility] Address [address] [address] Phone Care Team Providers Care General Internist Name Role Phone Shahida Trevizo MD Primary [...] and vinegar or a vinaigrette or an Micronesian dressing at the 12 PM and 6 PM times. She may consume an apple or pear or Vietnamese yogurt or cottage cheese at 8:00 if [...] refer the patient to Dr. Davis a weather algorithm scientist at [facility] for further work-up of slow transit and [...] file Insurance MEDICARE PART A & B [facility] FULL MEDICARE PART A & B [employer] NET FULL MEDICARE PART A & B [employer] NET FULL MEDICARE PART A & B [employer] [facility] FULL MEDICARE PART A & B [employer] [facility] NET FULL MEDICARE PART A & B [facility] FULL Care Teams General Internist Relationship Specialty Start Date End Date Shahida Trevizo MD [address] [place] [address] PCP - General Internal Medicine 06/16/23 Additional Source Comments The information contained in this document represents components of the legal health record. It is not the complete legal health record.[facility]
--- OUTSIDE RECORDS SUMMARY | 2024-10-17 08:49 | XMS_ITS | Clinical Summary ---
Author Organization [facility] Address [address] [place] [address] Care Team Providers Care Condenser Tube Tender Name Role Phone Driss Santiago MD Primary Care Provider [phone] Allergies Active Allergy Reactions Criticality Noted Date [...] age to complete this topic Care Teams Condenser Tube Tender Relationship Specialty Start Date End Date Driss Santiago MD [address] [place] [address] [address] [facility] [place] [address] PCP - General Internal Medicine 10/17/19
== END 2024-10-17 08:28 | disposition home or self-care (01) ==
LOC: HO.NEURO 08:27
PROVIDERS: PCP Internal Medicine; Visit Provider Psychiatry & Neurology Neurology
DX: R41.3 Other amnesia (principal); S06.9XAA Unspecified intracranial injury with loss of consciousness status unknown, initial encounter
CPT/HCPCS: 95816

== ENCOUNTER → 2024-10-17 08:33 | Outpatient (BNV) | payer MEDICARE, MEDICAID, SELFPAY | PROVIDERS: PCP Internal Medicine; Visit Provider Psychiatry & Neurology Neurology | DX: R94.01 Abnormal electroencephalogram [EEG] (principal) | CPT/HCPCS: 95816 ==

== ENCOUNTER → 2024-11-01 07:11 | Outpatient (BNV) | payer MEDICARE, MEDICAID, SELFPAY | PROVIDERS: Visit Provider Radiology Diagnostic Radiology | DX: R41.3 Other amnesia (principal) | CPT/HCPCS: 70551 ==

== ENCOUNTER 2024-11-01 07:45 | Outpatient (REF) | payer MEDICARE, MEDICAID, SELFPAY ==
--- NOTE | ~2024-11-01 | MR_ITS ---
EXAMINATION: MR BRAIN WITHOUT CONTRAST CLINICAL INFORMATION: Amnesia COMPARISON: February 09, 2021 TECHNIQUE: MRI of the brain was obtained using routine sequences without contrast. FINDINGS: No restricted diffusion. No acute intracranial hemorrhage, mass effect, midline shift, hydrocephalus or herniation. Robles-white matter differentiation is normal. Posterior cranial fossa contents demonstrated no acute hemorrhage or mass effect or signal abnormality. The cerebellar tonsils are in normal position. Sellar/suprasellar region is normal. Flow-void signal within the main cerebral vessels is normal. There is a 17 mm CSF signal within the inferior left basal ganglia/lenticular nucleus and superior lateral to the left temporal horn of the lateral ventricle without mass effect or restricted diffusion. No signal abnormality or gross volume loss in the hippocampi. Nonspecific punctate hyperintense T2 FLAIR signal within the subcortical deep white matter left parietal lobe. MR/MR head/brain wo con IMPRESSION: No acute brain abnormality. 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
--- OUTSIDE RECORDS SUMMARY | 2024-11-01 07:55 | XMS_ITS | Clinical Summary ---
Author Organization 175 [facility] Address [address] [place] [address] Phone Care Team Providers Care Health Services Information Specialist Name Role Phone Driss Santiago MD Primary Care Provider [phone] Allergies Active Allergy Reactions Criticality Noted Date Comments Amoxicillin 12/27/2023 Cefuroxime Itching 04/28/2017 Cephalosporins Itching 09/07/2017 Other Reaction(s): Other (See Comments) Medications levothyroxine (SYNTHROID, LEVOTHROID) 88 mcg tablet Take 1 Tablet by mouth daily. - Oral Active cholecalciferol , vitamin D3, (VITAMIN D3 ORAL) D3-50 1.25 MG (60469 UT) Cap TAKE 1 CAPSULE BY MOUTH [...] Fungal rash of trunk 12/27/2023 Aspiration pneumonia ([facility] V24, [facility] V28) 12/27/2023 Hypothyroidism 12/27/2023 Bipolar affective disorder ([facility] V24, [facility] V28) 12/27/2023 Constipation 12/27/2023 Gassiness 12/27/2023 Epigastric pain 12/27/2023 Encounters Date Type Department Care Team Description 08/29/2024 11:16 AM EDT - 08/29/2024 11:59 PM EDT Hospital Encounter [facility] Xray [address] [place] [phone] Aspiration pneumonia, unspecified aspiration pneumonia type, unspecified laterality, unspecified part of lung ([facility] V24, [facility] V28) Discharge Disposition: Home or Self Care 08/13/2024 Telephone Pulmonolgy - [place] [address] [facility] [address] [place] [address] Angela Painter MD from Last 3 Months Immunizations Name Administration Dates Next Due Influenza trivalent, with pr eservative (Fluzone; Afluria) 6mo and older 02/07/2009 Influenza, live, intranasal, trivalent (FluMist) 2yo to less than 50yo 11/17/2012,12/03/2009,02/07/2009 Td Tetanus diptheria (Tdvax) 7yo and older 03/28 Surgical History Surgery Date Site/Laterality Comments GASTRIC BYPASS 2001 PROCEDURE: [place] GASTRIC RSTCV W/BYP W/SM INT RCNSTJ LIMIT ABSRPJ COLONOSCOPY 09/09/08 PROCEDURE: HISTORICAL COLONOSCOPY; COMMENT: hemorrhoids; repeat in ten years OTHER SURGICAL HISTORY 02/25/2009 PROCEDURE: MD HYSTEROSCOPY LYSIS INTRAUTERINE ADHESIONS SECTION PROCEDURE: HISTORICAL DELIVERY; COMMENT: x 2 TONSILLECTOMY PROCEDURE: HISTORICAL TONSILLECTOMY; COMMENT: and Adenoidectomy OTHER SURGICAL HISTORY 08/08/2014 PROCEDURE: MD LAPS GASTRIC RESTRICTIVE PROCEDURE PLACE DEVICE; COMMENT: Dr Bello, took out in 2018 LUMBAR LAMINECTOMY PROCEDURE: HISTORICAL LUMB LAMINECTOMY OTHER SURGICAL HISTORY 2001 PROCEDURE: MD LAPS GSTR RSTCV PX W/BYP THEO-EN-Y LIMB [...] Description 11/06/2024 11:15 AM EDT Office Visit Pulmonol - [place] 175 [facility] [address] [place] [phone] Angela Painter MD 175 [facility] [address] [place] [address] Health Maintenance Due Date Last Done Comments Breast Cancer Screening 1960 Pneumococcal Vaccine: 50+ Years (1 of 2 - PCV) 08/22/1978 Zoster Vaccines (1 of 2) 08/22/2009 Cervical Cancer Screening: Pap Smear 09/12/2012 09/12/2009, 09/12/2009 Hepatitis C Screening 01/29/2022 Medicare Annual Wellness Visit 01/29/2022 Osteoporosis Screening (Bone Density Screening) 01/29/2022 Social Influencers of Health Screening 01/29/2022 Cholesterol Screening (Lipid Panel) 12/03/2022 12/03/2017 Depression Screening 02/22/2024 Falls Risk Assessment 08/22/2024 COVID-19 Vaccine ( season) 2024 01/27/2021, 05/14/2020, 04/22/2020 Influenza Vaccine (#1) 2024 , 01/18/2023, 11/27/2021, [...] type, unspecified laterality, unspecified part of lung ([facility] V24, [facility] V28) HM COLONOSCOPY Routine 03/09/2018 LIPID PANEL [...] the left midlung, unchanged since 04/22/2022. Code 42817 -------- FINAL REPORT -------- Dictated By: Aris Ortiz Dictated Date: 08/29/2024 11:30 ET Assigned Physician: Aris Ortiz Reviewed and Electronically Signed By: Aris Ortiz Signed Date: 08/29/2024 11:32 ET Workstation ID: [id number] Transcribed By: Self Edit Transcribed Date: 08/29/2024 [...] most recent prior chest radiograph obtained at [facility] was performed on 04/22/2022. FINDINGS: PA [...] in the left midlung,unchanged since 04/22/2022. Code 43648 -------- FINAL REPORT -------- Dictated By: Aris Ortiz Dictated Date: 08/29/2024 11:30 ET Assigned Physician: Aris Ortiz Reviewed and Electronically Signed By: Aris Ortiz Signed Date: 08/29/2024 11:32 ET Workstation ID: [id number] Transcribed By: Self Edit Transcribed Date: 08/29/2024 11:30 ET Angela Painter MD IMG XR PROCEDURES Final Result * Colonoscopy (03/09/2018) [facility] Colonoscopy no interpretation , abstracted Anatomical Region Laterality Modality Other Historical Provider HEALTH MAINTENANCE Final Result * (ABNORMAL) Lipid panel (12/03/2017) [facility] LDL/HDL Ratio 2 0 - 4 Triglycerides 82 0 - 150 mg/dL Cholesterol 202(A) 0 - 200 mg/dL HDL 83 >=40 mg/dL LDL Cholesterol 103(A) 0 - 100 mg/dL Blood Venous blood specimen / Unknown Result [facility] Historical Provider LAB BLOOD ORDERABLES Shelly l Result * Cervical Cancer Screening: HPV (09/12/2009) [facility] Cervical Cancer Screening: HPV abstracted, negative Historical Provider HEALTH MAINTENANCE Final Result from Last 3 Months or Most Recently Relevant to Health Maintenance Insurance [facility] [place] [id number] MEDICARE [place]ICAID [place] Care Teams Health Services Information Specialist Relationship Specialty Start Date End Date Driss Santiago MD [address] [place] [address] Dr [address] [facility] [place] [address] PCP - General Internal Medicine 02/08/17
--- OUTSIDE RECORDS SUMMARY | 2024-11-01 07:55 | XMS_ITS | Encounter Summary ---
Author Organization [facility] Address [address] [place] [address] [place] [phone] Phone Care Team Providers Care Brazing Machine Operator Helper Name Role Phone Shahida Trevizo MD Primary Care Provid er Encounter Details Date Type Department Care Team ([facility] st Contact Info) Description 06/16/2023 Procedure Pass Echo Lab [address] [place] [address] Social History Tobacco Use Types Packs/Day Years Used Date Smoking Tobacco: Never Smokeless Tobacco: Never Alcohol Use Standard Drinks/Week Comments Never 0 (1 standard drink = 0.6 oz pur e alcohol) Education Answer Date Recorded Are you interested in more education? Not on nlado e 06/19/2022 Are you concerned about learning? [...] on filedocumented in this encounter Care Teams Brazing Machine Operator Helper Relationship Specialty Start Date End Date Shahida Trevizo MD [address] [place] [address] PCP - General Internal Medicine 06/16/23 documented as of this encounter Additional Source Comments The information contained in this document represents components of the legal health record. It is not the complete legal health record.[facility]
--- OUTSIDE RECORDS SUMMARY | 2024-11-01 07:55 | XMS_ITS | Patient Health Record ---
Author [facility]ely [place] Address [address] [place] [address] Care Team Providers Care Inspector Hot Forgings Name Role Phone Driss Santiago Primary Care Provider Jonatan Goncalves Unavailable [phone] Allergies Allergen (clinical drug ingredient) Drug/Non Drug Allergy documented on EMR Reaction Allergy Type Onset Date Status amoxicillin Amoxicillin severe reaction Drug Allergy Active Reason For Referral No Information Medications Medication SIG (Take, Route, Fr equency, Duration) Notes Start Date End Date Status [place] Active Naproxen as needed Active Vitamin B [...] X ray : Foot, right 3V 10/31/2019 [id number] TENDON SHEATH/LIGAMENT 1 04/03/2019 Insurance Providers Payer Name Payer Address Payer Phone Subscriber Number Group Number Insured Name Patient Relationship to Insured Coverage Start Date Coverage End Date [facility] [address] [place] [address] [phone] [id number] DARIANA SHEA Spouse - patient is the spouse of the insured Medical (General) History Medical History History ICD Code Anemia Anxiety Back,Hip,and Knee pain Depression Numbness Psychiatric disorder raynauds disease thyroid Measles Mumps Chicken pox Surgical History Surgery Date(Month/Year) lumbar laminectomy 1986 section 1986 gastric bypass 2002 gall bladder 2016 T+A 1977
--- OUTSIDE RECORDS SUMMARY | 2024-11-01 07:55 | XMS_ITS | Clinical Summary ---
Author Organization [facility] Address [address] [place] [address] Care Team Providers Care Neon Installer Name Role Phone Driss Santiago MD Primary [...] age to complete this topic Care Teams Neon Installer Relationship Specialty Start Date End Date Driss Santiago MD [address] [place] [address] [address] [facility] [place] [address] PCP - General Internal Medicine 10/17/19
--- OUTSIDE RECORDS SUMMARY | 2024-11-01 07:55 | XMS_ITS | Clinical Summary ---
Author Organization [facility] Address [address] [address] Phone Care Team Providers Care Oracle Architect Name Role Phone Shahida Trevizo MD Primary [...] and vinegar or a vinaigrette or an [place] dressing at the 12 PM and 6 PM times. She may consume an apple or pear or Yakut yogurt or cottage cheese at 8:00 if [...] refer the patient to Dr. Davis a behavioral science chair at [facility] for further work-up of slow transit [...] - Risk 60-74 years 1-dose series) 2019 OSTEOPOROSIS SCREENING INITI AL (ONE-TIME) 08/22/2024 INFLUENZA VACCINE (#1) 2024 COVID-19 VACCINE (1 - 2023-2 5 season) 2024 SMOKING STATUS SCREENING (On ce After 26 [...] MEDICARE PART A & B [facility] FULL MEDICARE PART A & B [facility] [employer] NET FULL MEDICARE PART A & B [facility] NET FULL MEDICARE PART A & B [employer] FULL MEDICARE PART A & B [employer] [facility] FULL MEDICARE PART A & B [facility] FULL Care Teams Oracle Architect Relationship Specialty Start Date End Date Shahida Trevizo MD [address] [place] [address] PCP - General Internal Medicine 06/16/23 Additional Source Comments The information contained in this document represents components of the legal health record. It is not the complete legal health record.[facility]
== END 2024-11-01 07:46 | disposition home or self-care (01) ==
LOC: HO.MRI 07:45
PROVIDERS: Visit Provider Psychiatry & Neurology Neurology
DX: R41.3 Other amnesia (principal); S06.9XAA Unspecified intracranial injury with loss of consciousness status unknown, initial encounter
CPT/HCPCS: 70551

== ENCOUNTER 2024-11-07 10:40 | Outpatient (AMB) | payer MEDICARE, MEDICAID, SELFPAY ==
--- OUTSIDE RECORDS SUMMARY | 2024-11-06 11:15 | XMS_ITS | Encounter Summary ---
Author Organization [facility] Address [address] [place] [address] Care Team Providers Care Labor Economics Teacher Name Role Phone Driss Santiago MD Primary Care Provider [phone] Reason for Visit * Reason Comments Lung Nodule 6 mth f/u Pulmonary Nodule Encounter Details Date Type Department Care Team (Late st Contact Info) Description 11/06/2024 11:15 AM EDT Office Visit Pulmonolgy - [facility] [address] [place] [address] Angela Painter MD [address] [place] [address] Aspiration pneumonia, unspecified aspiration pneumonia type, unspecified laterality, unspecified part of lung (CMS/HCC V24, CMS/HCC V28) (Primary Dx) Social History Tobacco Use Types Packs/Day Years [...] on file documented as of this encounter Last Filed Vital Signs Vital Sign Reading Time Taken Comments Blood Pressure 110/62 11/06/2024 11:25 AM EDT Pulse 85 11/06/2024 11:25 AM EDT Temperature 36.3 C (97.4 F) 11/06/2024 11:25 AM EDT Respiratory Rate 16 11/06/2024 11:25 AM EDT Oxygen Saturation 99% 11/06/2024 11:25 AM EDT Inhaled Oxygen Concentration - - Weight - - Height - - Body Mass Index - - documented in this encounter Progress Notes * Angela Painter MD - 11/06/2024 11:15 AM EDT ADULT PULMONARY CONSULT CHIEF COMPLAINT or REASON FOR CONSULTATION: Lung Nodule (6 mth f/u Pulmonary Nodule) HISTORY OF PRESENT ILLNESS: Norma Cuellar is a 64 y.o. years old, female with a history of pneumonia, pneumonitis s/p gastric banding. She had multiple pneumonias in past yr. She was last admitted again to [facility] for bronchitis/pneumonia from 08/21 to 08/23/23. Lost 80 lb in 2 yrs on Wegovy- no further pneumonia in the past year. The patient attributes that to weight loss ALLERGIES: Allergies Allergen Reactions Amoxil [Amoxicillin] Cefuroxime Itching Cephalosporins Itching Other Reaction(s): Other (See Comments) ACTIVE MEDICATIONS: Outpatient Medications Marked as Taking for the 11/06/24 encounter (Office Visit) with Angela Painter MD Medication Sig Dispense Refill calcium carbonate-vitamin D3 (Calcium 600 + D,3,) 600 mg-5 mcg (200 unit) per tablet 1 bid cholecalciferol, vitamin D3, (VITAMIN D3 ORAL) D3-50 1.25 MG (46226 UT) Cap TAKE 1 CAPSULE BY MOUTH ONCE WEEKLY fluticasone furoate (Arnuity Ellipta) 100 mcg/actuation blister with device inhaler Inhale 1 puff by mouth 1 (one) time each day. levothyroxine (SYNTHROID, LEVOTHROID) 88 mcg tablet Take 1 Tablet by mouth daily. - Oral PROVIDER ATTESTS THAT THE MEDICATION LIST WAS OBTAINED, REVIEWED AND UPDATED. REVIEW OF SYSTEMS: GENERAL: No wt lost or fever ENT: +snoring Eye: RESPIRATORY: + cough, wheezing and dyspnea CARDIOVASCULAR: No chest pain, leg swelling or palpitations GI: No abdominal discomfort, MUSCULOSKELETAL: +backpain HEMATOLOGY/LYMPHOLOGY No prolonged bleeding, easy bruisability ENDOCRINE: no DM NEURO: No focal weakness : Psych: no depression PAST MEDICAL HISTORY: Patient Active Problem List Diagnosis Date Noted Depression 12/27/2023 Multilevel degenerative disc disease 12/27/2023 ADD (attention deficit disorder) 12/27/2023 Abdominal pannus 12/27/2023 Fungal rash of trunk 12/27/2023 Aspiration pneumonia ([facility] V24, [facility] V28) 12/27/2023 Hypothyroidism 12/27/2023 Bipolar affective disorder ([facility] V24, [facility] V28) 12/27/2023 Constipation 12/27/2023 Gassiness 12/27/2023 Epigastric pain 12/27/2023 Past Surgical History: Procedure Laterality Date SECTION PROCEDURE: HISTORICAL DELIVERY; COMMENT: x 2 COLONOSCOPY 09/09/08 PROCEDURE: HISTORICAL COLONOSCOPY; COMMENT: hemorrhoids; repeat in ten years GASTRIC BYPASS 2001 PROCEDURE: [place] GASTRIC RSTCV W/BYP W/SM INT RCNSTJ LIMIT ABSRPJ LUMBAR LAMINECTOMY PROCEDURE: HISTORICAL LUMB LAMINECTOMY OTHER SURGICAL HISTORY 02/25/2009 PROCEDURE: [place] HYSTEROSCOPY LYSIS INTRAUTERINE ADHESIONS OTHER SURGICAL HISTORY 08/08/2014 PROCEDURE: IL LAPS GASTRIC RESTRICTIVE PROCEDURE PLACE DEVICE; COMMENT: Dr Bello, took out in 2018 OTHER SURGICAL HISTORY 2001 PROCEDURE: IL LAPS GSTR RSTCV PX W/BYP EUFEMIA-EN-Y LIMB <150 CM; COMMENT: Dr PRITCHETT TONSILLECTOMY PROCEDURE: HISTORICAL TONSILLECTOMY; COMMENT: and Adenoidectomy FAMILY HISTORY: Family History Problem Relation Name Age of Onset Arthritis Mother Prostate cancer Father age 74 Hyperlipidemia Sister Hyperlipidemia Brother No Known Problems Son No Known Problems Daughter OCCUPATION OR OCCUPATION EXPOSURE: SOCIAL HISTORY Social History Socioeconomic History Marital status: Spouse name: Not on file Number of children: Not on file Years of education: Not on file Highest education level: Not on file Occupational History Not on file Tobacco Use Smoking status: Never Smokeless tobacco: Never Substance and Sexual Activity Alcohol use: No Drug use: No Sexual activity: Not on file Other Topics Concern Not on file 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, 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 IMMUNIZATION: Immunization History Administered Date(s) Administered Influenza trivalent, with preservative (Fluzone; Afluria) 6mo and older 02/07/2009 Influenza, live, intranasal, trivalent (FluMist) 2yo to less than 50yo 02/07/2009, 12/03/2009, 11/17/2012 Panviva SARS-CoV-2 COVID-19, mRNA, LNP-S, preservative free 04/22/2020, 05/14/2020, 01/27/2021 Td Tetanus diptheria (Tdvax) 7yo and older 03/28/2003 PHYSICAL EXAM: Visit Vitals BP 110/62 (BP Location: Left arm, Patient Position: Sitting, BP Cuff Size: Adult) Pulse 85 Temp 36.3 ??C (97.4 ??F) (Temporal) Resp 16 SpO2 99% Smoking Status Never APPEARANCE: Alert and in no acute distress. EYES: Conjunctiva and sclera normal. NOSE/SINUS: Nares normal. Septum midline. Mucosa No drainage or sinus tenderness. MOUTH/THROAT: no erythema or exudates. Mallampati class 2 NECK: Neck supple, thyroid symmetric and of normal size. HEART: RRR with normal S1 and S2, no murmurs, no gallops, no JVD appreciated. LUNG: CTA b/l, no wheezing or bronchial bs ABDOMEN: Bowel sounds normoactive, soft, non-tender EXTREMITIES: no clubbing, cyanosis, or edema. LYMPH NODES: No cervical and supra-clavicular lymphadenopathy. NEURO: Awake, alert and oriented x 3, no focalization Derm: no rash DIAGNOSTIC DATA: CARDIOPULMONARY TEST: Last Pulmonary function Test showed: 10/03/2023 FEV1 is 85% normal, FVC is 83% normal, FEV1/FVC ratio is normal, no improvement in FEV1 post bronchodilators, MVV is 81% normal. Lung volume TLC is 89% normal, RV is 90% normal, RV/TLC is 93%. Diffusion DLCO is 106% normal. In summary, this is a normal PFT RADIOLOGIST IMAGIN08/29/24 FINDINGS: PA and lateral radiographs of the chest demonstrate mild degenerative changes of the thoracic spine as also seen on the prior chest radiograph performed 04/22/2022. The cardiac and mediastinal contours are within normal limits. Again seen is mild linear scarring in the left midlung. The lungs are otherwise clear and the costophrenic angles are clear. IMPRESSION: No acute pulmonary disease. Mild linear scarring in the left midlung, unchanged since 04/22/2022. ASSESSMENT: ICD-10-CM ICD-9-CM 1. Aspiration pneumonia, unspecified aspiration pneumonia type, unspecified laterality, unspecifiedpart of lung (CMS/HCC V24, CMS/HCC V28) J69.0 507.0 PLAN: The patient has no further pneumonia in the past year, last chest x-ray August 2024 was normal. Her PFT likewise normal or so, I do minimal panel study in 2018 showed no immunodeficiency. The frequent episodes of pneumonia was likely due to GERD/aspiration from her gastric bypass. Treatment is now mostly supportive. Aspiration risk discussed with patient - Follow up with Driss Santiago MD for the other co-morbilities. - I spend 25 Minutes on this visit. The patient was educated about his problems, where assessment and plan was reviewed and explained, All questions were answered. This includes: Preparing to see the patient, obtaining and/or reviewing separately obtained history, performing a medically appropriate exam, ordering medications, tests, or procedures, documenting clinical information in the electronic health record, and independently interpreting results. RETURN TO THE NEXT VISIT: Based on physical exam, symptomatology, tests requested and baseline pulmonary evaluation/disease, I instructed the patient to come back to see me in 12 mths for reevaluation after the test has been done or earlier if the patient needed. Thanks Driss Santiago MD for allowing me to have the opportunity to assist in the care of this patient. documented in this encounter Plan of Treatment Not on file documented as of this encounter Visit Diagnoses Diagnosis Aspiration pneumonia, unspecified aspiration pneumonia type, unspecified laterality, unspecified part of lung (CMS/HCC V24, CMS/HCC V28)- Primary documented in this encounter Care Teams Labor Economics Teacher Relationship Specialty Start Date End Date Driss Santiago MD [address] [place] [address] [address] [facility] [place] [address] PCP - General Internal Medicine 02/08/17 documented as of this encounter
--- NOTE | 2024-11-07 10:54 | A.OFFVIS_ITS ---
Intake Visit Reasons: MRI review Allergies amoxicillin (Amoxicillin) Allergy (Severe, Verified 06/25/24 08:18) HIVES, swelling Medication List - Last Reconciled 11/07/24 by Js Tompkins MD albuterol sulfate 90 mcg/actuation 2 puffs inhalation Q4-6H PRN cholecalciferol (vitamin D3) 25 mcg PO DAILY 90 days cyclobenzaprine 10 mg PO BID PRN levothyroxine (Synthroid) 25 mcg PO DAILY 90 days liothyronine 5 mcg PO BID lurasidone (Latuda) 60 mg (3 x 20 mg) PO DAILY tirzepatide (Mounjaro) mg subcut HPI Comments Details: 64-year-old woman with peripheral neuropathy and lumbar foraminal stenosis with nerve conduction study on 09/13/2023 showing axonal sensory greater than motor peripheral neuropathy is here for follow-up. She feels much better with Gabapentin 600mg hs. Her leg sx have resolved. Tremor of hands resolved. Depression is under control. She had multiple concussions. In 2019 she was diagnosed with peripheral neuropathy. She had a lumbar discectomy at L4-5 in 1986. MRI of the lumbar spine in 2020 shows spinal stenosis at L2-3 and L3-4 due to facet hypertrophy. Her short term memory is poor , so an MRI was done. reported below. ON LICENSE OF [facility] Medical History Varicose veins of right lower extremity with inflammation Severe obesity (BMI 35.0-35.9 with comorbidity) Curtis toxicity Morbid obesity Polyarthralgia LLQ abdominal pain Chronic diarrhea Adult general medical exam Screening for diabetes mellitus Screening for colon cancer Screening for breast cancer Post-menopausal Depression Left hip pain Left shoulder pain Slurred speech Left lateral abdominal pain Urinary incontinence Osteomyelitis Weight gain Abdominal muscle strain Marginal ulcer Bipolar disorder Anemia ADHD PTSD (post-traumatic stress disorder) Back pain DDD (degenerative disc disease) SOB (shortness of breath) Upper back pain on left side Dizziness Hx of small bowel obstruction Right rotator cuff tear Iron deficiency anemia Obesity GERD (gastroesophageal reflux disease) Hypercholesterolemia Anxiety and depression Osteoarthritis Lumbar disc herniation Surgical History History of endoscopy History of esophagogastroduodenoscopy (EGD) Hx of colonoscopy History of adjustable gastric banding History of removal of laparoscopic gastric banding device Hx of section S/P panniculectomy Hx of laparoscopic gastric banding Hx of laminectomy Hx laparoscopic cholecystectomy History of Theo-en-Y gastric bypass Hx of tonsillectomy Family History Father HTN (hypertension) DM (diabetes mellitus) Bladder cancer Prostate cancer Hyperlipidemia Mother Thyroid nodule Brother No problems noted. Sister No problems noted. Son No problems noted. Daughter No problems noted. Social History Household Members: Spouse and Children Household Members Other:: dog and cat Housing: House Do you presently have visiting nurse or other home services: No Alcohol intake: never Patient Tobacco Use Status: Never used Tobacco e-Cigarette/Vaping Use: Never Used Second Hand Smoke Exposure: No Substance Use Type: Opiates Advance Directives Date on File: 02/10/21 service: No Current occupational status: disabled Sexual orientation: Straight/Heterosexual Cognitive needs: No Hearing needs: No Vision needs: Yes Review of Systems Const Details: Sleep:? Difficulty getting to sleep?denies.? Difficulty maintaining sleep?denies? .? Urge to move legs?denies.? Teeth grinding?denies.? Shouting or Kicking during sleep?denies.? Abnormal behavior during sleep?denies.? Excessive sleep?denies.? Snoring?denies.? Daytime sleepiness?denies.? ?? General/Constitutional:? Change in appetite?denies.? Chills?denies.? Fatigue?denies.? Fever?denies .? Weight gain?denies.? Weight loss?denies.? ?? Ophthalmologic:? Blurred vision?denies.? Diminished visual acuity?denies.? ?? ENT:? Stuffiness?denies.? Decreased hearing?denies.? Dry mouth?denies.? Ear pain?denies.? Nosebleed?denies.? Ringing in the ears?denies.? Sinus pain?denies .? Sore throat?denies.? Swollen glands?denies.? ?? Endocrine:? Cold intolerance?denies.? Excessive thirst?denies.? Frequent urination? denies.? Heat intolerance?denies.? ?? Respiratory:? Shortness of breath?denies.? Chest pain?denies.? Cough?denies.? ?? Breast:? Breast lump?denies.? Nipple discharge?denies.? ?? Cardiovascular:? Chest pain at rest?denies.? Chest pain with exertion?denies.? Claudication?denies.? Dizziness?denies.? Fluid accumulation in the legs?denies.? Irregular heartbeat?denies.? Palpitations?denies.? ?? Gastrointestinal:? Abdominal pain?denies.? Constipation?denies.? Diarrhea?denies.? Difficulty swallowing?denies.? Heartburn?denies.? Nausea?denies.? Rectal bleeding?denies.? ?? Hematology:? Easy bruising?denies.? Prolonged bleeding?denies.? ?? Genitourinary:? Frequent urination?denies.? Urgency?denies.? Incontinence?denies.? Erectile Dysfunction?denies.? ?? Musculoskeletal:? Neck pain?denies.? Back pain?denies.? Muscle aches?denies.? Painful joints?denies.? Sciatica?denies.? Weakness?denies.? ?? Podiatric:? Difficulty walking?denies.? Foot numbness?denies.? ?? Neurologic:? Difficulty swallowing?denies.? Balance difficulty?denies.? Coordination? normal.? Difficulty speaking?denies.? Dizziness?denies.? Fainting?denies.? Gait abnormality?denies.? Headache?denies.? Loss of strength?denies.? Loss of use of extremity?denies.? Low back pain?denies.? Memory loss?yes.? Seizures?denies.? Tics?denies.? Tingling/Numbness?denies.? Transient loss of vision?denies.? Tremor?denies.? ?? Psychiatric:? Anxiety?denies.? Auditory/visual hallucinations?denies.? Delusions?denies .? Depressed mood?denies.? Stressors?denies.? Substance abuse?denies.? Suicidal thoughts?denies.? ?? Physical Exam Neuro Other: Neurological: ? Abnormal neurological findings:??none.? Mental Status:?alert and oriented X 3,?Normal attention, orientation, memory and affect.? Cranial Nerves:?Pupils are equal, round and reactive to light. Fundoscopy shows normal disc bilaterally. External occular muscles are intact. Visual edouard are full, no ptosis. Face is symmetrical, no facial weakness or droop. Facial sensations are normal. Tongue protrudes in midline. Palate elevates symmetrically. Shoulder shrugging is normal..? Motor Examination:?Normal muscle tone, bulk and strength,?No atrophy or fasciculations,?No drift of the extended upper extremities,?Deep tendon reflexes are 2+?,?Plantars are flexor?.? Straight Leg Raising:?90 degrees.? Sensory Exam:?Normal light touch, temperature, pinprick, vibration and joint-position sensations?,?Rhomberg sign is absent.? Coordination:?no ataxia,?no titubation,?[id number], etdq-lmra-[id number] test and rapid alternating movements were normal.? Gait Exam:?Within normal limits.? Cerebellar Signs:?Lkujhf-hu-olzl and fcix-ar-awcb is normal,?no dysdiadochokinesia?.? Extrapyramidal System:?No tremor, rigidity with normal facial expressions,?No bradykinesia, no bradyphrenia. Normal arm swing and posture. No propulsion or retropulsion.? Speech:?Normal,?no dysphasia or dysarthria..? Mini Mental Status Exam: ? Level of Consciousness:?Alert.? Orientation:?Knows correct year, month, date, day and season,?Knows correct city, county and state. Knows correct location and floor.? Registration:?Able to register 3 objects.? Attention:?Serial 7's performed accurately.? Recall:?Able to recall 3 out of 3 objects.? Language:?Normal spontaneous speech, fluency, repetition,naming, comprehension, reading and writing.? Total Score:?30/30.? General Examination: ? GENERAL APPEARANCE:?normal,?in no acute distress.? HEAD:?normocephalic,?atraumatic.? EYES:?sclera non-icteric,?conjunctiva clear.? EARS:?auditory canal clear,?tympanic membrane intact, clear.? NOSE:?no lesions.? ORAL CAVITY:?gums normal,?mucosa moist,?no lesions.? THROAT:?clear.? NECK/THYROID:?no cervical lymphadenopathy,?thyroid normal,?neck supple, full range of motion,?no carotid bruit.? SKIN:?no rashes,?no significant birthmarks.? HEART:?S1, S2 normal,?no murmurs.? LUNGS:?clear anteriorly and posteriorly.? CHEST:?no gross rib deformity,?clear to auscultation.? BACK:?normal exam of spine.? EXTREMITIES:?no edema.? PERIPHERAL PULSES:?normal.? PSYCH:?alert, oriented,?cognitive function intact,?cooperative with exam.? Assessment & Plan Assessment & Plan (1) Peripheral neuropathy: Comment: 09/13/23 NCV/EMG LE Axonal sensory greater than motor peripheral neuropathy in the lower extremities. Normal EMG in the left L4-S1 innervated muscles. Code(s): G62.9 - Polyneuropathy, unspecified Category: Medical (2) Spinal stenosis of lumbar region at multiple levels: Code(s): M48.061 - Spinal stenosis, lumbar region without neurogenic claudication Category: Medical (3) Memory loss: Comment: 11/01/24 MRI brain shows an old appearing cyst deep to the left operculum in the inferior basal ganglion. Possibly post traumatic or developmental Code(s): R41.3 - Other amnesia Category: Medical Plan Observation. Continue current meds. Coding Level of Care Code Est Pt Level 4 (71892) Diagnoses Peripheral neuropathy G62.9 Spinal stenosis of lumbar region at multiple levels M48.061 Memory loss R41.3
--- OUTSIDE RECORDS SUMMARY | 2024-11-07 13:15 | XMS_ITS | Patient Health Record ---
Author Organization [facility] [place] Address [address] [place] [address] Care Team Providers Care Machine Operator Cane Cutter Name Role Phone Driss Santiago Primary Care Provider Jonatan Goncalves Unavailable [phone] Allergies Allergen (clinical drug ingredient) Drug/Non Drug Allergy documented on EMR Reaction Allergy Type Onset Date Status amoxicillin Amoxicillin severe reaction Drug Allergy Active Reason For Referral No Information Medications Medication SIG (Take, Route, Fr equency, Duration) Notes Start Date End Date Status [place] Active Naproxen as needed Active Vitamin B [...] X ray : Foot, right 3V 10/31/2019 [id number] TENDON SHEATH/LIGAMENT 1 04/03/2019 Insurance Providers Payer Name Payer Address Payer Phone Subscriber Number Group Number Insured Name Patient Relationship to Insured Coverage Start Date Coverage End Date [facility] [address] [place] [address] [id number] DARIANA SHEA Spouse - patient is the spouse of the insured Medical (General) History Medical History History ICD Code Anemia Anxiety Back,Hip,and Knee pain Depression Numbness Psychiatric disorder raynauds disease thyroid Measles Mumps Chicken pox Surgical History Surgery Date(Month/Year) lumbar laminectomy 1986 section 1986 gastric bypass 2002 gall bladder 2016 T+A 1977
--- OUTSIDE RECORDS SUMMARY | 2024-11-07 13:15 | XMS_ITS | Encounter Summary ---
Author Organization [facility] Address [address] [place] [address] [place] [phone] Phone Care Team Providers Care Fresh Work Inspector Name Role Phone Shahida Trevizo MD Primary Care Provid er Encounter Details Date Type Department Care Team ([facility] st Contact Info) Description 06/16/2023 Procedure Pass Echo [facility] [address] [place] [address] Social History Tobacco Use Types Packs/Day Years [...] on filedocumented in this encounter Care Teams Fresh Work Inspector Relationship Specialty Start Date End Date Shahida Trevizo MD [address] [place] [address] PCP - General Internal Medicine 06/16/23 documented as of this encounter Additional Source Comments The information contained in this document represents components of the legal health record. It is not the complete legal health record.[facility]
--- OUTSIDE RECORDS SUMMARY | 2024-11-07 13:15 | XMS_ITS | Clinical Summary ---
Author Organization [facility] Address [address] [place] [address] Phone Care Team Providers Care Patent Engineer Name Role Phone Driss Santiago MD Primary Care Provider [phone] Allergies Active Allergy Reactions Criticality Noted Date Comments Amoxicillin 12/27/2023 Cefuroxime Itching 04/28/2017 Cephalosporins Itching 09/07/2017 Other Reaction(s): Other (See Comments) Medications levothyroxine (SYNTHROID, LEVOTHROID) 88 mcg tablet Take 1 Tablet by mouth daily. - Oral Active cholecalciferol , vitamin D3, (VITAMIN D3 ORAL) D3-50 1.25 MG (37629 UT) Cap TAKE 1 CAPSULE BY MOUTH [...] Fungal rash of trunk 12/27/2023 Aspiration pneumonia ([facility] V24, [facility] V28) 12/27/2023 Hypothyroidism 12/27/2023 Bipolar affective disorder ([facility] V24, [facility] V28) 12/27/2023 Constipation 12/27/2023 Gassiness 12/27/2023 Epigastric pain 12/27/2023 Encounters Date Type Department Care Team Description 11/06/2024 11:15 AM EDT Office Visit [facility] 175 [facility] [address] [place] [phone] Angela Painter MD Aspiration pneumonia, unspecified aspiration pneumonia type, unspecified laterality, unspecified part of lung ([facility] V24, [facility] V28) (Primary Dx) 08/29/2024 11:16 AM EDT - 08/29/2024 11:59 PM EDT Hospital Encounter [facility] Xray [address] [place] [phone] Aspiration pneumonia, unspecified aspiration pneumonia type, unspecified laterality, unspecified part of lung ([facility] V24, [facility] V28) Discharge Disposition: Home or Self Care 08/13/2024 Telephone [facility] [address] [phone] Angela Painter MD from Last 3 Months Immunizations Name Administration Dates Next Due Influenza trivalent, with pr eservative (Fluzone; Afluria) 6mo and older 02/07/2009 Influenza, live, intranasal, trivalent (FluMist) 2yo to less than 50yo 11/17/2012,12/03/2009,02/07/2009 Td Tetanus diptheria (Tdvax) 7yo and older 03/28 Surgical History Surgery Date Site/Laterality Comments GASTRIC BYPASS 2001 PROCEDURE: RI GASTRIC RSTCV W/BYP W/SM INT RCNSTJ LIMIT ABSRPJ COLONOSCOPY 09/09/08 PROCEDURE: HISTORICAL COLONOSCOPY; COMMENT: hemorrhoids; repeat in ten years OTHER SURGICAL HISTORY 02/25/2009 PROCEDURE: RI HYSTEROSCOPY LYSIS INTRAUTERINE ADHESIONS SECTION PROCEDURE: HISTORICAL DELIVERY; COMMENT: x 2 TONSILLECTOMY PROCEDURE: HISTORICAL TONSILLECTOMY; COMMENT: and Adenoidectomy OTHER SURGICAL HISTORY 08/08/2014 PROCEDURE: RI LAPS GASTRIC RESTRICTIVE PROCEDURE PLACE DEVICE; COMMENT: Dr Bello, took out in 2018 LUMBAR LAMINECTOMY PROCEDURE: HISTORICAL LUMB LAMINECTOMY OTHER SURGICAL HISTORY 2001 PROCEDURE: RI LAPS GSTR RSTCV PX W/BYP THEO-EN-Y LIMB <150 CM; COMMENT: Dr PRITCHETT Medical History Medical History Date Comments Backache, unspecified DX:Backach e, unspecified ADD (attention deficit disorder) 01/16/2007 DX:ADD (attention deficit disorder); COMMENT: Follows with [facility] Osteoarthritis of both knees 09/07/2017 DX: Osteoarthritis [...] EDT Inhaled Oxygen Concentration - - Weight 107 kg (236 lb) 04/27/2024 8:46 AM EST Height 175.3 cm (5' 9 ) 04/27/2024 8:46 AM EST Body Mass Index 34.85 04/27/2024 8:46 AM EST Plan of Treatment Health Maintenance [...] 02/22/2024 Falls Risk Assessment 08/22/2024 COVID-19 Vaccine (4 - season) 2024 01/27/2021, 05/14/2020, 04/22/2020 Influenza Vaccine [...] laterality, unspecified part of lung (CMS/HCC V24, [facility] V28) HM COLONOSCOPY Routine 03/09/2018 LIPID [...] the left midlung, unchanged since 04/22/2022. Code 59484 -------- FINAL REPORT -------- Dictated By: Aris Ortiz Dictated Date: 08/29/2024 11:30 ET Assigned Physician: Aris Ortiz Reviewed and Electronically Signed By: Aris Ortiz Signed Date: 08/29/2024 11:32 ET Workstation ID: [id number] Transcribed By: Self Edit Transcribed Date: 08/29/2024 [...] in the left midlung,unchanged since 04/22/2022. Code 18281 -------- FINAL REPORT -------- Dictated By: Aris Ortiz Dictated Date: 08/29/2024 11:30 ET Assigned Physician: Aris Ortiz Reviewed and Electronically Signed By: Aris Ortiz Signed Date: 08/29/2024 11:32 ET Workstation ID: [id number] Transcribed By: Self Edit Transcribed Date: 08/29/2024 11:30 ET Angela Painter MD IMG XR PROCEDURES Final Result * Colonoscopy (03/09/2018) [facility] Colonoscopy no interpretation , abstracted Anatomical Region Laterality Modality Other Historical [facility] Final Result * (ABNORMAL) Lipid panel (12/03/2017) [facility] LDL/HDL Ratio 2 0 - 4 Triglycerides 82 0 - 150 mg/dL Cholesterol 202(A) 0 - 200 mg/dL HDL 83 >=40 mg/dL LDL Cholesterol 103(A) 0 - 100 mg/dL Blood Venous blood specimen / Unknown Result [facility] Historical Provider LAB BLOOD ORDERABLES Shelly l Result * Cervical Cancer Screening: HPV (09/12/2009) [facility] Cervical Cancer Screening: HPV abstracted, negative Historical Provider HEALTH MAINTENANCE Final Result from Last 3 Months or Most Recently Relevant [place] [phone] MEDICARE MEDICAID [place] Care Teams Patent Engineer Relationship Specialty Start Date End Date Driss Santiago MD [address] [place] [address] [address] [facility] [place] [address] PCP - General Internal Medicine 02/08/17
--- OUTSIDE RECORDS SUMMARY | 2024-11-07 13:15 | XMS_ITS | Clinical Summary ---
Author Organization [facility] Address [address] [address] Phone Care Team Providers Care Belly Dump Driver Name Role Phone Shahida Trevizo MD Primary [...] and vinegar or a vinaigrette or an [place] dressing at the 12 PM and 6 PM times. She may consume an apple or pear or Slovak yogurt or cottage cheese at 8:00 if [...] refer the patient to Dr. Davis a skin piler at [facility] for further work-up of slow transit [...] HEALTH FULL MEDICARE PART A & B [employer] NET FULL MEDICARE PART A & B [employer] [facility] NET FULL MEDICARE PART A & B [employer] FULL MEDICARE PART A & B [employer] [facility] FULL MEDICARE PART A & B [facility] FULL Care Teams Belly Dump Driver Relationship Specialty Start Date End Date Shahida Trevizo MD [address] [place] [address] PCP - General Internal Medicine 06/16/23 Additional Source Comments The information contained in this document represents components of the legal health record. It is not the complete legal health record.[facility]
--- OUTSIDE RECORDS SUMMARY | 2024-11-07 13:15 | XMS_ITS | Clinical Summary ---
Author Organization [facility] Address [address] [place] [address] Care Team Providers Care Bow Making Machine Operator Name Role Phone Driss Santiago MD [...] age to complete this topic Care Teams Bow Making Machine Operator Relationship Specialty Start Date End Date Driss Santiago MD [address] [place] [address] [address] [facility] [place] [address] PCP - General Internal Medicine 10/17/19
== END 2024-11-07 15:12 | disposition home or self-care (01) ==
LOC: HO.HSM 10:41
PROVIDERS: Visit Provider Psychiatry & Neurology Neurology
DX: G62.9 Polyneuropathy, unspecified (principal); M48.061 Spinal stenosis, lumbar region without neurogenic claudication; R41.3 Other amnesia
CPT/HCPCS: 99214

== ENCOUNTER → 2024-11-07 10:40 | Outpatient (BNVA) | payer MEDICARE, MEDICAID, SELFPAY | PROVIDERS: Visit Provider Psychiatry & Neurology Neurology | DX: G62.9 Polyneuropathy, unspecified (principal); M48.061 Spinal stenosis, lumbar region without neurogenic claudication; R41.3 Other amnesia | CPT/HCPCS: 99212 ==

== ENCOUNTER 2024-11-26 08:02 | Outpatient (AMB) | payer MEDICARE, MEDICAID, SELFPAY ==
--- OUTSIDE RECORDS SUMMARY | 2024-11-26 08:08 | XMS_ITS | Encounter Summary ---
Author Organization [facility] Address [address] [place] [address] [place] [address] Phone Care Team Providers Care Bunk Assembler Name Role Phone Shahida Trevizo MD Primary Care Provid er Encounter Details Date Type Department Care Team ([facility] st Contact Info) Description 06/16/2023 Procedure Pass Echo Lab [address] [place] [address] Social History Tobacco Use Types Packs/Day Years [...] on filedocumented in this encounter Care Teams Bunk Assembler Relationship Specialty Start Date End Date Shahida Trevizo MD [address] [place] [address] PCP - General Internal Medicine 06/16/23 documented as of this encounter Additional Source Comments The information contained in this document represents components of the legal health record. It is not the complete legal health record.[facility]
--- OUTSIDE RECORDS SUMMARY | 2024-11-26 08:08 | XMS_ITS | Clinical Summary ---
Author Organization [facility] Address [address] [place] [address] Care Team Providers Care Tv Host Name Role Phone Driss Santiago MD Primary Care Provider [phone] Allergies Active Allergy Reactions Criticality Noted Date [...] age to complete this topic Care Teams Tv Host Relationship Specialty Start Date End Date Driss Santiago MD [address] [place] [address] [address] [facility] [facility] [place] [address] PCP - General Internal Medicine 10/17/19
--- OUTSIDE RECORDS SUMMARY | 2024-11-26 08:08 | XMS_ITS | Clinical Summary ---
Author Organization [facility] Address [address] [address] Phone Care Team Providers Care Planting Material Unloader Name Role Phone Shahida Trevizo MD Primary [...] and vinegar or a vinaigrette or an Spanish dressing at the 12 PM and 6 PM times. She may consume an apple or pear or [place] yogurt or cottage cheese at 8:00 if [...] refer the patient to Dr. Davis a blasting entryman at [facility] for further work-up of slow transit [...] FOBT 08/22/2004 SIGMOIDOSCOPY 08/22/2004 VIRTUAL COLONOSCOPY 08/22/2004 RSV VACCINE (1 - Risk 50-74 years 1-dose series) 08/22/2009 ZOSTER VACCINES (1 of 2) 08/22/2009 OSTEOPOROSIS SCREENING INITI AL (ONE-TIME) 08/22/2024 INFLUENZA VACCINE (#1) 2024 COVID-19 VACCINE (1 - 2024-2 6 season) 2024 SMOKING STATUS SCREENING (On ce [...] file Insurance MEDICARE PART A & B [facility] FULL MEDICARE PART A & B [employer] SAFETY NET FULL MEDICARE PART A & B [employer] [facility] NET FULL MEDICARE PART A & B [employer] FULL MEDICARE PART A & B Member Subscriber Plan / Payer (Ef fective 2022-Present) Name:Norma Cuellar Member ID:[id number] Relation to Subscriber:Self Name:Norma Cuellar Subscriber ID:[id number] Payer ID:[id number] Group ID:Not on file Type:Medicare Address: [facility] [address] [place] [address] [facility] FULL MEDICARE PART A & B [facility] FULL Care Teams Planting Material Unloader Relationship Specialty Start Date End Date Shahida Trevizo MD [address] [place] [address] PCP - General Internal Medicine 06/16/23 Additional Source Comments The information contained in this document represents components of the legal health record. It is not the complete legal health record.[facility]
--- OUTSIDE RECORDS SUMMARY | 2024-11-26 08:08 | XMS_ITS | Patient Health Record ---
Author Organization [facility] Address [address] [place] [address] Care Team Providers Care Proration Clerk Name Role Phone Driss Santiago Primary Care Provider Jonatan Buchanan Unavailable [phone] Allergies Allergen (clinical drug ingredient) Drug/Non Drug Allergy documented on EMR Reaction Allergy Type Onset Date Status amoxicillin Amoxicillin severe reaction Drug Allergy Active Reason For Referral No Information Medications Medication SIG (Take, Route, Fr equency, Duration) Notes Start Date End Date Status [place] Active Naproxen as needed Active Vitamin B [...] X ray : Foot, right 3V 10/31/2019 [id number] TENDON SHEATH/LIGAMENT 1 04/03/2019 Insurance Providers Payer Name Payer Address Payer Phone Subscriber Number Group Number Insured Name Patient Relationship to Insured Coverage Start Date Coverage End Date [facility] [address] [place], [place] [id number] [phone] [id number] DARIANA SHEA Spouse - patient is the spouse of the insured Medical (General) History Medical History History ICD Code Anemia Anxiety Back,Hip,and Knee pain Depression Numbness Psychiatric disorder raynauds disease thyroid Measles Mumps Chicken pox Surgical History Surgery Date(Month/Year) lumbar laminectomy 1986 section 1986 gastric bypass 2002 gall bladder 2015 T+A 1977
--- NOTE | 2024-11-26 08:09 | A.OFFPC_ITS ---
Vital Signs 11/26/24 08:10 Height 5 ft 9 in Weight 220 lb BMI 32.5 BP 130/70 Blood Pressure Location Lt brachial Position Sitting Pulse 97 Pulse Source Pulse Oximeter Temp 96.9 F Temp Source Temporal Artery Scan Pulse Oximetry (%) 96 Oxygen Delivery Method Room Air Intake Visit Reasons: follow up-Thyroid, Vitamin D Intake Note: Patient is here to follow up on Thyroid, Vit D. Percussion Instructor Required: No College Dean: Not Required per policy Accompanied by: Self / Same As Patient Allergies amoxicillin (Amoxicillin) Allergy (Severe, Verified 11/26/24 08:10) HIVES, swelling Medication List - Last Reconciled 11/26/24 by Be Trejo MD cholecalciferol (vitamin D3) 25 mcg PO DAILY 90 days cyclobenzaprine 10 mg PO BID PRN levothyroxine (Synthroid) 12.5 mcg (1/2 x 25 mcg) PO DAILY 90 days liothyronine 5 mcg PO BID lurasidone (Latuda) 60 mg (3 x 20 mg) PO DAILY tirzepatide (Mounjaro) 15 mg subcut QWEEK Tobacco use date assessed: 11/26/24 Fall risk assessment: No Falls in past year Last assessed Fall Risk: 11/26/24 Dental Screening Dental Screen Date: 06/25/24 HPI HPI Comments History of Present Illness Details 64 yo F with PMH of memory problems, Hyp othyroidism, low vit D, bipolar disorder who is presenting today for F-U. Patient was seen a few months ago in Dr. Gilliam's clinic. She has been on Levothyroxine 25 mcg since 06/25/2024. Her most recent labs showed TSH 0.14. The patient reports weight loss of 78 lbs but she is also on Munjaro. She reports memory problems, that is followed with Neurology. She recently got EEG and brain MRI. She had multiple questions about her EEG results that I deferred to her Neurologist. [facility] Medical History Varicose veins of right lower extremity with inflammation Severe obesity (BMI 35.0-35.9 with comorbidity) [place] toxicity Morbid obesity Polyarthralgia LLQ abdominal pain Chronic diarrhea Adult general medical exam Screening for diabetes mellitus Screening for colon cancer Screening for breast cancer Post-menopausal Depression Left hip pain Left shoulder pain Slurred speech Left lateral abdominal pain Urinary incontinence Osteomyelitis Weight gain Abdominal muscle strain Marginal ulcer Bipolar disorder Anemia ADHD PTSD (post-traumatic stress disorder) Back pain DDD (degenerative disc disease) SOB (shortness of breath) Upper back pain on left side Dizziness Hx of small bowel obstruction Right rotator cuff tear Iron deficiency anemia Obesity GERD (gastroesophageal reflux disease) Hypercholesterolemia Anxiety and depression Osteoarthritis Lumbar disc herniation Surgical History History of endoscopy History of esophagogastroduodenoscopy (EGD) Hx of colonoscopy History of adjustable gastric banding History of removal of laparoscopic gastric banding device Hx of section S/P panniculectomy Hx of laparoscopic gastric banding Hx of laminectomy Hx laparoscopic cholecystectomy History of Theo-en-Y gastric bypass Hx of tonsillectomy Family History Father HTN (hypertension) DM (diabetes mellitus) Bladder cancer Prostate cancer Hyperlipidemia Mother Thyroid nodule Brother No problems noted. Sister No problems noted. Son No problems noted. Daughter No problems noted. Social History Household Members: Spouse and Children Household Members Other:: dog and cat Housing: House Do you presently have visiting nurse or other home services: No Alcohol intake: never Patient Tobacco Use Status: Never used Tobacco e-Cigarette/Vaping Use: Never Used Second Hand Smoke Exposure: No Substance Use Type: Opiates Advance Directives Date on File: 02/10/21 service: No Current occupational status: disabled Sexual orientation: Straight/Heterosexual Cognitive needs: No Hearing needs: No Vision needs: Yes Questionnaire Thrive Questionnaire Date Thrive assessed: 06/25/24 GILDA-7 AMB Questionnaire GILDA-7 Date GILDA - 7 assessed: 06/25/24 Source: Developed by Drs. Nav Faust, July Contreras, Horacio Rudolph and colleagues, with an educational mustapha from [employer]. Review of Systems Const Details: Positives besides what was mentioned in HPI are in BOLD Constitutional: No Weight Change, No Fever, No Chills, No Night Sweats, No Fatigue, No Malaise ENT/Mouth: No Hearing Changes, No Ear Pain, No Nasal Congestion, No Sinus Pain, No Hoarseness, No sore throat, No Rhinorrhea, No Swallowing Difficulty Eyes: No Eye Pain, No Swelling, No Redness, No Foreign Body, No Discharge, No Vision Changes Cardiovascular: No Chest Pain, No SOB, No PND, No Dyspnea on Exertion, No Orthopnea, No Claudication, No Edema, No Palpitations Respiratory: No Cough, No Sputum, No Wheezing, No Smoke Exposure, No Dyspnea Gastrointestinal: No Nausea, No Vomiting, No Diarrhea, No Constipation, No Pain, No Heartburn, No Anorexia, No Dysphagia, No Hematochezia, No Melena, No Flatulence, No Jaundice Genitourinary: No Dysmenorrhea, No DUB, No Dyspareunia, No Dysuria, No Urinary Frequency, No Hematuria, No Urinary Incontinence, No Urgency, No Flank Pain, No Urinary Flow Changes, No Hesitancy Musculoskeletal: No Arthralgias, No Myalgias, No Joint Swelling, No Joint Stiffness, No Back Pain, No Neck Pain, No Injury History Skin: No Skin Lesions, No Pruritis, No Hair Changes, No Breast/Skin Changes, No Nipple Discharge Neuro: No Weakness, No Numbness, No Paresthesias, No Loss of Consciousness, No Syncope, No Dizziness, No Headache, No Coordination Changes, No Recent Falls Psych: No Anxiety/Panic, No Depression, No Insomnia, No Personality Changes, No Delusions, No Rumination, No SI/HI/AH/VH, No Social Issues, No Memory Changes, No Violence/Abuse Hx., No Eating Concerns Heme/Lymph: No Bruising, No Bleeding, No Transfusions History, No Lymphadenopathy Endocrine: No Polyuria, No Polydipsia, No Temperature Intolerance Physical exam (Primary Care) Vital Signs: Last Vital Signs Temp 96.9 F 11/26/24 08:10 Pulse 97 11/26/24 08:10 BP 130/70 11/26/24 08:10 Pulse Ox 96 11/26/24 08:10 Oxygen Delivery Method Room Air 11/26/24 08:10 BMI result Body Mass Index 32.5 Tobacco/Smoking Status: Tobacco use Status Tobacco use date assessed 11/26/24 11/26/24 08:15 Patient Tobacco Use Status Never used Tobacco 11/26/24 08:15 e-Cigarette/Vaping Use Never Used 11/26/24 08:15 Thrive Assessment: Date of Thrive Assessment Date Thrive assessed 06/25/24 11/26/24 08:15 Const Other: Pertinent findings are in BOLD GENERAL APPEARANCE NAD, activity normal for age, well developed/ well nourished, no cyanosis, pallor, or diaphoresis. EYES lids/conjunctiva normal. EARS/NOSE/THROAT Mucous membranes moist, nares normal, lips/teeth normal uvula midline without oral pharyngeal erythema, exudate or swelling TMs normal bilaterally. No lymphangitis/lymphedema. HEAD/NECK normocephalic atraumatic, no facial trauma, neck is supple. RESPIRATORY respiratory effort normal, speaks in full sentences, no tripod position, no accessory muscle use. Lungs clear to auscultation without rhonchi, wheezes, rales CARDIAC Regular rate and rhythm, no edema. ABDOMINAL Soft, ND/NT. No evidence of fluid wave. No pulsatile masses on exam, rebound tenderness, Rodriguez sign or pain over Mcburney's point. MUSCLES/EXTREMITIES No abnormal range of motion, no swelling. SKIN Warm, pink and dry. No rashes, dermatoses, petechiae or lesions. NEUROLOGICAL Speech is clear and appropriate. Normal level of consciousness. Gait and coordination are normal. 5/5 strength in all extremities. PSYCH Normal mood and affect. Judgement/competence is appropriate Coding Level of Care Code Est Pt Level 4 (54063) Diagnoses Acquired hypothyroidism E03.9 Hypothyroidism type: acquired Memory loss R41.3 Time Spent (min) 30 Assessment & Plan Assessment & Plan (1) Hypothyroid: Code(s): E03.9 - Hypothyroidism, unspecified Category: Medical Qualifiers: Hypothyroidism type: acquired Qualified Code(s): E03.9 - Hypothyroidism, unspecified Plan: Most recent TSH 0.14 (Low). - We will reduce Levothyroxine dose to 12.5 today. Repeat TSH and T4 in 10 weeks. F-U of results with Dr. Ray in 01/2025. (2) Memory loss: Comment: 11/01/24 MRI brain shows an old appearing cyst deep to the left operculum in the inferior basal ganglion. Possibly post traumatic or developmental Code(s): R41.3 - Other amnesia Category: Medical Plan: Multiple TBI in the past. She had multiple questions regarding her EEG results. Patient has F-U with Neurology in two weeks. We will continue to follow Neurology reccs. Orders: Orders TSH reflex Free T4 01/16/25 E03.9 - Hypothyroidism, unspecified Medications: Changed From levothyroxine (Synthroid) 25 mcg PO DAILY 90 days 90 tabs 1RF To levothyroxine (Synthroid) 12.5 mcg (1/2 x 25 mcg) PO DAILY 45 tabs 1RF 90 days
--- OUTSIDE RECORDS SUMMARY | 2024-11-26 08:09 | XMS_ITS | Clinical Summary ---
Author Organization 175 [facility] Address [address] [place] [address] Phone Care Team Providers Care Aboriginal Liaison Officer Name Role Phone Driss Santiago MD Primary Care Provider [phone] Allergies Active Allergy Reactions Criticality Noted Date Comments Amoxicillin 12/27/2023 Cefuroxime Itching 04/28/2017 Cephalosporins Itching 09/07/2017 Other Reaction(s): Other (See Comments) Medications levothyroxine (SYNTHROID, LEVOTHROID) 88 mcg tablet Take 1 Tablet by mouth daily. - Oral Active cholecalciferol , vitamin D3, (VITAMIN D3 ORAL) D3-50 1.25 MG (85092 UT) Cap TAKE 1 CAPSULE BY MOUTH [...] Fungal rash of trunk 12/27/2023 Aspiration pneumonia ([facility] V24, [facility] V28) 12/27/2023 Hypothyroidism 12/27/2023 Bipolar affective disorder ([facility] V24, [facility] V28) 12/27/2023 Constipation 12/27/2023 Gassiness 12/27/2023 Epigastric pain 12/27/2023 Encounters Date Type Department Care Team Description 11/06/2024 11:15 AM EDT Office Visit Pulmonology - [place] 175 [facility] [address] [place] [phone] Angela Painter MD Aspiration pneumonia, unspecified aspiration pneumonia type, unspecified laterality, unspecified part of lung ([facility] V24, [facility] V28) (Primary Dx) 08/29/2024 11:16 AM EDT - 08/29/2024 11:59 PM EDT Hospital Encounter [facility] Xray [address] [place] [phone] Aspiration pneumonia, unspecified aspiration pneumonia type, unspecified laterality, unspecified part of lung ([facility] V24, [facility] V28) Discharge Disposition: Home or Self Care from Last 3 Months Immunizations Immunization Administration Dates Next Due Influenza trivalent, with pr eservative (Fluzone; Afluria) 6mo and older 02/07/2009 Influenza, live, intranasal, trivalent (FluMist) 2yo to less than 50yo 11/17/2012,12/03/2009,02/07/2009 Td Tetanus diptheria (Tdvax) 7yo and older 03/28 Surgical History Surgery Date Site/Laterality Comments GASTRIC BYPASS 2001 PROCEDURE: OR GASTRIC RSTCV W/BYP W/SM INT RCNSTJ LIMIT ABSRPJ COLONOSCOPY 09/09/08 PROCEDURE: HISTORICAL COLONOSCOPY; COMMENT: hemorrhoids; repeat in ten years OTHER SURGICAL HISTORY 02/25/2009 PROCEDURE: OR HYSTEROSCOPY LYSIS INTRAUTERINE ADHESIONS SECTION PROCEDURE: HISTORICAL DELIVERY; COMMENT: x 2 TONSILLECTOMY PROCEDURE: HISTORICAL TONSILLECTOMY; COMMENT: and Adenoidectomy OTHER SURGICAL HISTORY 08/08/2014 PROCEDURE: OR LAPS GASTRIC RESTRICTIVE PROCEDURE PLACE DEVICE; COMMENT: Dr Bello, took out in 2018 LUMBAR LAMINECTOMY PROCEDURE: HISTORICAL LUMB LAMINECTOMY OTHER SURGICAL HISTORY 2001 PROCEDURE: OR LAPS GSTR RSTCV PX W/BYP EUFEMIA-EN-Y LIMB <150 CM; COMMENT: Dr PRITCHETT Medical History Medical History Date Comments Backache, unspecified DX:Backach e, unspecified ADD (attention deficit disorder) 01/16/2007 DX:ADD (attention deficit disorder); COMMENT: Follows with [facility] Osteoarthritis of both knees 09/07/2017 DX: [...] 01/27/2021, 05/14/2020, 04/22/2020 Influenza Vaccine (#1) 2024 4, 01/18/2023, 11/27/2021, Additional history exists Colorectal Cancer [...] part of lung (CMS/HCC V24, CMS/HCC V28) HM COLONOSCOPY Routine 03/09/2018 LIPID PANEL [...] the left midlung, unchanged since 04/22/2022. Code 72388 -------- FINAL REPORT -------- Dictated By: Aris Ortiz Dictated Date: 08/29/2024 11:30 ET Assigned Physician: Aris Ortiz Reviewed and Electronically Signed By: Aris Ortiz Signed Date: 08/29/2024 11:32 ET Workstation ID: [id number] Transcribed By: Self Edit Transcribed Date: 08/29/2024 [...] most recent prior chest radiograph obtained at [facility] was performed on 04/22/2022. FINDINGS: PA and [...] in the left midlung,unchanged since 04/22/2022. Code 49969 -------- FINAL REPORT -------- Dictated By: Aris Ortiz Dictated Date: 08/29/2024 11:30 ET Assigned Physician: Aris Ortiz Reviewed and Electronically Signed By: Aris Ortiz Signed Date: 08/29/2024 11:32 ET Workstation ID: [id number] Transcribed By: Self Edit Transcribed Date: 08/29/2024 11:30 ET Angela Painter MD IMG XR PROCEDURES Final Result * Colonoscopy (03/09/2018) [facility] Colonoscopy no interpretation , abstracted Anatomical Region Laterality Modality Other [facility] Final Result * (ABNORMAL) Lipid panel (12/03/2017) [facility] LDL/HDL Ratio 2 0 - 4 Triglycerides 82 0 - 150 mg/dL Cholesterol 202(A) 0 - 200 mg/dL HDL 83 >=40 mg/dL LDL Cholesterol 103(A) 0 - 100 mg/dL Blood Venous blood specimen / Unknown Result [facility] Provider LAB BLOOD ORDERABLES Shelly l Result * Cervical Cancer Screening: HPV (09/12/2009) [facility] Cervical Cancer Screening: HPV abstracted, negative Historical Provider HEALTH MAINTENANCE Final Result from Last 3 Months or Most Recently Relevant [place] [phone] MEDICARE MEDICAID [place] Care Teams Aboriginal Liaison Officer Relationship Specialty Start Date End Date Driss Santiago MD [address] [place] [address] [address] [facility] [place] [address] PCP - General Internal Medicine 02/08/17
[2024-11-26 08:10] VITALS: BP 130/70; PULSE 97; TEMP 36.1; O2SAT 96; BMI 32.5
== END 2024-11-26 08:47 | disposition home or self-care (01) ==
LOC: HO.HMCH 08:02
PROVIDERS: Visit Provider Internal Medicine
DX: E03.9 Hypothyroidism, unspecified (principal); R41.3 Other amnesia

== ENCOUNTER → 2024-11-26 08:02 | Outpatient (BNVA) | payer MEDICARE, MEDICAID, SELFPAY | PROVIDERS: Visit Provider Internal Medicine | DX: K21.9 Gastro-esophageal reflux disease without esophagitis (principal); E03.9 Hypothyroidism, unspecified; E55.9 Vitamin D deficiency, unspecified; F31.9 Bipolar disorder, unspecified; R41.9 Unspecified symptoms and signs involving cognitive functions and awareness; Z79.899 Other long term (current) drug therapy | CPT/HCPCS: 99212 ==

== ENCOUNTER 2024-12-04 08:12 | Outpatient (AMB) | payer MEDICARE, MEDICAID, SELFPAY ==
--- NOTE | 2024-12-04 08:38 | A.OFFVIS_ITS ---
Intake Visit Reasons: f/u after testings Allergies amoxicillin (Amoxicillin) Allergy (Severe, Verified 11/26/24 08:10) HIVES, swelling Medication List - Last Reconciled 12/04/24 by Js Tompkins MD cholecalciferol (vitamin D3) 25 mcg PO DAILY 90 days cyclobenzaprine 10 mg PO BID PRN levothyroxine (Synthroid) 12.5 mcg (1/2 x 25 mcg) PO DAILY 90 days liothyronine 5 mcg PO BID lurasidone (Latuda) 60 mg (3 x 20 mg) PO DAILY tirzepatide (Mounjaro) 15 mg subcut QWEEK HPI Comments Details: 64-year-old woman with peripheral neuropathy and lumbar foraminal stenosis with nerve conduction study on 09/13/2023 showing axonal sensory greater than motor peripheral neuropathy is here for follow-up. She feels much better with Gabapentin 600mg hs. Her leg sx have resolved. Tremor of hands resolved. Depression is under control. She had multiple concussions. In 2019 she was diagnosed with peripheral neuropathy. She had a lumbar discectomy at L4-5 in 1986. MRI of the lumbar spine in 2020 shows spinal stenosis at L2-3 and L3-4 due to facet hypertrophy. Her short term memory is poor , so an MRI was done. reported below. [facility] Medical History Varicose veins of right lower extremity with inflammation Severe obesity (BMI 35.0-35.9 with comorbidity) [place] toxicity Morbid obesity Polyarthralgia LLQ abdominal pain Chronic diarrhea Adult general medical exam Screening for diabetes mellitus Screening for colon cancer Screening for breast cancer Post-menopausal Depression Left hip pain Left shoulder pain Slurred speech Left lateral abdominal pain Urinary incontinence Osteomyelitis Weight gain Abdominal muscle strain Marginal ulcer Bipolar disorder Anemia ADHD PTSD (post-traumatic stress disorder) Back pain DDD (degenerative disc disease) SOB (shortness of breath) Upper back pain on left side Dizziness Hx of small bowel obstruction Right rotator cuff tear Iron deficiency anemia Obesity GERD (gastroesophageal reflux disease) Hypercholesterolemia Anxiety and depression Osteoarthritis Lumbar disc herniation Surgical History History of endoscopy History of esophagogastroduodenoscopy (EGD) Hx of colonoscopy History of adjustable gastric banding History of removal of laparoscopic gastric banding device Hx of section S/P panniculectomy Hx of laparoscopic gastric banding Hx of laminectomy Hx laparoscopic cholecystectomy History of Theo-en-Y gastric bypass Hx of tonsillectomy Family History Father HTN (hypertension) DM (diabetes mellitus) Bladder cancer Prostate cancer Hyperlipidemia Mother Thyroid nodule Brother No problems noted. Sister No problems noted. Son No problems noted. Daughter No problems noted. Social History Household Members: Spouse and Children Household Members Other:: dog and cat Housing: House Do you presently have visiting nurse or other home services: No Alcohol intake: never Patient Tobacco Use Status: Never used Tobacco e-Cigarette/Vaping Use: Never Used Second Hand Smoke Exposure: No Substance Use Type: Opiates Advance Directives Date on File: 02/10/21 service: No Current occupational status: disabled Sexual orientation: Straight/Heterosexual Cognitive needs: No Hearing needs: No Vision needs: Yes Review of Systems Const Details: Sleep:? Difficulty getting to sleep?denies.? Difficulty maintaining sleep?denies? .? Urge to move legs?denies.? Teeth grinding?denies.? Shouting or Kicking during sleep?denies.? Abnormal behavior during sleep?denies.? Excessive sleep?denies.? Snoring?denies.? Daytime sleepiness?denies.? ?? General/Constitutional:? Change in appetite?denies.? Chills?denies.? Fatigue?denies.? Fever?denies .? Weight gain?denies.? Weight loss?denies.? ?? Ophthalmologic:? Blurred vision?denies.? Diminished visual acuity?denies.? ?? ENT:? Stuffiness?denies.? Decreased hearing?denies.? Dry mouth?denies.? Ear pain?denies.? Nosebleed?denies.? Ringing in the ears?denies.? Sinus pain?denies .? Sore throat?denies.? Swollen glands?denies.? ?? Endocrine:? Cold intolerance?denies.? Excessive thirst?denies.? Frequent urination? denies.? Heat intolerance?denies.? ?? Respiratory:? Shortness of breath?denies.? Chest pain?denies.? Cough?denies.? ?? Breast:? Breast lump?denies.? Nipple discharge?denies.? ?? Cardiovascular:? Chest pain at rest?denies.? Chest pain with exertion?denies.? Claudication?denies.? Dizziness?denies.? Fluid accumulation in the legs?denies.? Irregular heartbeat?denies.? Palpitations?denies.? ?? Gastrointestinal:? Abdominal pain?denies.? Constipation?denies.? Diarrhea?denies.? Difficulty swallowing?denies.? Heartburn?denies.? Nausea?denies.? Rectal bleeding?denies.? ?? Hematology:? Easy bruising?denies.? Prolonged bleeding?denies.? ?? Genitourinary:? Frequent urination?denies.? Urgency?denies.? Incontinence?denies.? Erectile Dysfunction?denies.? ?? Musculoskeletal:? Neck pain?denies.? Back pain?denies.? Muscle aches?denies.? Painful joints?denies.? Sciatica?denies.? Weakness?denies.? ?? Podiatric:? Difficulty walking?denies.? Foot numbness?denies.? ?? Neurologic:? Difficulty swallowing?denies.? Balance difficulty?denies.? Coordination? normal.? Difficulty speaking?denies.? Dizziness?denies.? Fainting?denies.? Gait abnormality?denies.? Headache?denies.? Loss of strength?denies.? Loss of use of extremity?denies.? Low back pain?denies.? Memory loss?yes.? Seizures?denies.? Tics?denies.? Tingling/Numbness?denies.? Transient loss of vision?denies.? Tremor?denies.? ?? Psychiatric:? Anxiety?denies.? Auditory/visual hallucinations?denies.? Delusions?denies .? Depressed mood?denies.? Stressors?denies.? Substance abuse?denies.? Suicidal thoughts?denies.? ?? Physical Exam Neuro Other: Neurological: ? Abnormal neurological findings:??none.? Mental Status:?alert and oriented X 3,?Normal attention, orientation, memory and affect.? Cranial Nerves:?Pupils are equal, round and reactive to light. Fundoscopy shows normal disc bilaterally. External occular muscles are intact. Visual edouard are full, no ptosis. Face is symmetrical, no facial weakness or droop. Facial sensations are normal. Tongue protrudes in midline. Palate elevates symmetrically. Shoulder shrugging is normal..? Motor Examination:?Normal muscle tone, bulk and strength,?No atrophy or fasciculations,?No drift of the extended upper extremities,?Deep tendon reflexes are 2+?,?Plantars are flexor?.? Straight Leg Raising:?90 degrees.? Sensory Exam:?Normal light touch, temperature, pinprick, vibration and joint-position sensations?,?Rhomberg sign is absent.? Coordination:?no ataxia,?no titubation,?[id number], [id number]-[id number]-[id number] test and rapid alternating movements were normal.? Gait Exam:?Within normal limits.? Cerebellar Signs:?[id number] and ntkw-[id number]-zfgh is normal,?no dysdiadochokinesia?.? Extrapyramidal System:?No tremor, rigidity with normal facial expressions,?No bradykinesia, no bradyphrenia. Normal arm swing and posture. No propulsion or retropulsion.? Speech:?Normal,?no dysphasia or dysarthria..? Mini Mental Status Exam: ? Level of Consciousness:?Alert.? Orientation:?Knows correct year, month, date, day and season,?Knows correct city, county and state. Knows correct location and floor.? Registration:?Able to register 3 objects.? Attention:?Serial 7's performed accurately.? Recall:?Able to recall 3 out of 3 objects.? Language:?Normal spontaneous speech, fluency, repetition,naming, comprehension, reading and writing.? Total Score:?30/30.? General Examination: ? GENERAL APPEARANCE:?normal,?in no acute distress.? HEAD:?normocephalic,?atraumatic.? EYES:?sclera non-icteric,?conjunctiva clear.? EARS:?auditory canal clear,?tympanic membrane intact, clear.? NOSE:?no lesions.? ORAL CAVITY:?gums normal,?mucosa moist,?no lesions.? THROAT:?clear.? NECK/THYROID:?no cervical lymphadenopathy,?thyroid normal,?neck supple, full range of motion,?no carotid bruit.? SKIN:?no rashes,?no significant birthmarks.? HEART:?S1, S2 normal,?no murmurs.? LUNGS:?clear anteriorly and posteriorly.? CHEST:?no gross rib deformity,?clear to auscultation.? BACK:?normal exam of spine.? EXTREMITIES:?no edema.? PERIPHERAL PULSES:?normal.? PSYCH:?alert, oriented,?cognitive function intact,?cooperative with exam.? Results Reviewed Results Reviewed: I reviewed the images of a current MRI done in October 2024 with the MRI from January [address] scan that she had brought in from 2019. All of which show an unchanged left medial temporal area of encephalomalacia which could be posttraumatic, developmental and less likely, a choroid cyst. It appears to be benign and has not changed over a follow up of 6 years. Patient has been reassured Assessment & Plan Assessment & Plan (1) Peripheral neuropathy: Comment: 09/13/23 NCV/EMG LE Axonal sensory greater than motor peripheral neuropathy in the lower extremities. Normal EMG in the left L4-S1 innervated muscles. Code(s): G62.9 - Polyneuropathy, unspecified Category: Medical (2) Spinal stenosis of lumbar region at multiple levels: Code(s): M48.061 - Spinal stenosis, lumbar region without neurogenic claudication Category: Medical (3) Memory loss: Comment: 11/01/24 MRI brain shows an old appearing cyst deep to the left operculum in the inferior basal ganglion. Possibly post traumatic or developmental compared with CT scan of 2018 and MRI of 2020. These findings are unchanged Code(s): R41.3 - Other amnesia Category: Medical Plan Observation. Continue current meds. Coding Level of Care Code Est Pt Level 4 (32950) Diagnoses Peripheral neuropathy G62.9 Spinal stenosis of lumbar region at multiple levels M48.061 Memory loss R41.3
== END 2024-12-04 08:55 | disposition home or self-care (01) ==
LOC: HO.HSM 08:13
PROVIDERS: Visit Provider Psychiatry & Neurology Neurology
DX: G62.9 Polyneuropathy, unspecified (principal); M48.061 Spinal stenosis, lumbar region without neurogenic claudication; R41.3 Other amnesia
CPT/HCPCS: 99214

== ENCOUNTER → 2024-12-04 08:12 | Outpatient (BNVA) | payer MEDICARE, MEDICAID, SELFPAY | PROVIDERS: Visit Provider Psychiatry & Neurology Neurology | DX: M48.061 Spinal stenosis, lumbar region without neurogenic claudication (principal); R41.3 Other amnesia; G62.9 Polyneuropathy, unspecified | CPT/HCPCS: 99212 ==

== ENCOUNTER 2024-12-21 10:39 | Outpatient (AMB) | payer MEDICARE, MEDICAID, SELFPAY ==
--- NOTE | 2024-12-21 10:41 | MHC.PC.OV ---
Vital Signs 12/21/24 10:43 Height 5 ft 9 in Weight 217 lb BMI 32.0 BP 132/70 Blood Pressure Location Lt brachial Position Sitting Temp 97.1 F Temp Source Temporal Artery Scan Intake Visit Reasons: both legs in pain and her back Intake Note: Patient is here to follow up on Bilateral leg pain and back pain. 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: No Analytical Lead: Not Required per policy Accompanied by: Self / Same As Patient Allergies amoxicillin (Amoxicillin) Allergy (Severe, Verified 12/21/24 10:43) HIVES, swelling Medication List - Last Reconciled 12/21/24 by Be Trejo MD cyclobenzaprine 10 mg PO BID PRN levothyroxine (Synthroid) 12.5 mcg (1/2 x 25 mcg) PO DAILY 90 days liothyronine 5 mcg PO BID lurasidone (Latuda) 60 mg (3 x 20 mg) PO DAILY prednisone 10 mg PO DIRECTED 8 days tirzepatide (Mounjaro) 15 mg subcut QWEEK Tobacco use date assessed: 12/21/24 Fall risk assessment: No Falls in past year Last assessed Fall Risk: 12/21/24 Dental Screening Dental Screen Date: 06/25/24 HPI HPI Comments History of Present Illness Details The patient is a 64-year-old female presenting for management of chronic back pain. She has a history of L4-5 surgery in 1987, thoracic and cervical protrusions, and has had approximately 20 MRIs. The patient reports current pain in her right buttock, right groin, and the back of her right knee, noting this is a change from her usual left-sided pain related to her surgery. She also notes that her feet can get stuck while walking, causing her to jar her body. 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 A previous trial of gabapentin up to 300 mg was discontinued by the patient due to side effects including slurred speech and feeling strange. A recent course of prednisone was not effective. 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 She uses cyclobenzaprine, which she finds helpful, and also utilizes heating pads. She has tried physical therapy and back injections in the past without lasting relief. The patient's medical history is also significant for hypothyroidism, for which she takes levothyroxine and possibly liothyronine. She underwent gastric bypass surgery in 2002 and has since lost 90 pounds with the use of Mounjaro. She has experienced gastrointestinal issues, including severe diarrhea managed with Pepto-Bismol and Imodium. 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 [facility] Medical History Varicose veins of right lower extremity with inflammation Severe obesity (BMI 35.0-35.9 with comorbidity) Gratis toxicity Morbid obesity Polyarthralgia LLQ abdominal pain Chronic diarrhea Adult general medical exam Screening for diabetes mellitus Screening for colon cancer Screening for breast cancer Post-menopausal Depression Left hip pain Left shoulder pain Slurred speech Left lateral abdominal pain Urinary incontinence Osteomyelitis Weight gain Abdominal muscle strain Marginal ulcer Bipolar disorder Anemia ADHD PTSD (post-traumatic stress disorder) Back pain DDD (degenerative disc disease) SOB (shortness of breath) Upper back pain on left side Dizziness Hx of small bowel obstruction Right rotator cuff tear Iron deficiency anemia Obesity GERD (gastroesophageal reflux disease) Hypercholesterolemia Anxiety and depression Osteoarthritis Lumbar disc herniation Surgical History History of endoscopy History of esophagogastroduodenoscopy (EGD) Hx of colonoscopy History of adjustable gastric banding History of removal of laparoscopic gastric banding device Hx of section S/P panniculectomy Hx of laparoscopic gastric banding Hx of laminectomy Hx laparoscopic cholecystectomy History of Theo-en-Y gastric bypass Hx of tonsillectomy Family History Father HTN (hypertension) DM (diabetes mellitus) Bladder cancer Prostate cancer Hyperlipidemia Mother Thyroid nodule Brother No problems noted. Sister No problems noted. Son No problems noted. Daughter No problems noted. Social History Household Members: Spouse and Children Household Members Other:: dog and cat Housing: House Do you presently have visiting nurse or other home services: No Alcohol intake: never Patient Tobacco Use Status: Never used Tobacco e-Cigarette/Vaping Use: Never Used Second Hand Smoke Exposure: No Substance Use Type: Opiates Advance Directives Date on File: 02/10/21 service: No Current occupational status: disabled Sexual orientation: Straight/Heterosexual Cognitive needs: No Hearing needs: No Vision needs: Yes Questionnaire Thrive Questionnaire Date Thrive assessed: 06/25/24 I am a: Patient What is your living situation today?: I have a steady place to live Within the past 12 months, did the food you bought not last and you didn't have the money to get more?: Never true Within the past 12 months, did you worry whether your food would run out before you got money to buy more?: Never true Do you have trouble paying for medicines?: No Do you have trouble getting transportation to medical appointments?: No Do you have trouble paying your heating and electricity bill?: No Do you have trouble taking care of your child, family member or friend?: No Do you have trouble with day-to-day activities such as bathing, preparing meals, shopping, managing finances, etc.?: No Are you currently unemployed and looking for a job?: No Are you interested in more education?: No Please select the resources that you would like help with: None Currently or been in a relationship where the following occur: I choose not to answer THRIVE Score: 0 GILDA-7 AMB Questionnaire GILDA-7 Date GILDA - 7 assessed: 06/25/24 Source: Developed by Drs. Nav Faust, July Contreras, Horacio Rudolph and colleagues, with an educational mustapha from [employer] Review of Systems Const Details: As per HPI. Physical exam (Primary Care) Vital Signs: Last Vital Signs Temp 97.1 F 12/21/24 10:43 BP 132/70 12/21/24 10:43 BMI result Body Mass Index 32.0 Tobacco/Smoking Status: Tobacco use Status Tobacco use date assessed 12/21/24 12/21/24 10:47 Patient Tobacco Use Status Never used Tobacco 12/21/24 10:47 e-Cigarette/Vaping Use Never Used 12/21/24 10:47 Thrive Assessment: Date of Thrive Assessment Date Thrive assessed 06/25/24 12/21/24 10:47 Currently or been in a relationship where the following occur: I choose not to answer Const Other: Pertinent findings are in BOLD GENERAL APPEARANCE NAD, activity normal for age, well developed/ well nourished, no cyanosis, pallor, or diaphoresis. EYES lids/conjunctiva normal. EARS/NOSE/THROAT Mucous membranes moist, nares normal, lips/teeth normal uvula midline without oral pharyngeal erythema, exudate or swelling TMs normal bilaterally. No lymphangitis/lymphedema. HEAD/NECK normocephalic atraumatic, no facial trauma, neck is supple. RESPIRATORY respiratory effort normal, speaks in full sentences, no tripod position, no accessory muscle use. Lungs clear to auscultation without rhonchi, wheezes, rales CARDIAC Regular rate and rhythm, no edema. ABDOMINAL Soft, ND/NT. No evidence of fluid wave. No pulsatile masses on exam, rebound tenderness, Rodriguez sign or pain over Mcburney's point. MUSCLES/EXTREMITIES No abnormal range of motion, no swelling. SKIN Warm, pink and dry. No rashes, dermatoses, petechiae or lesions. NEUROLOGICAL Speech is clear and appropriate. Normal level of consciousness. Gait and coordination are normal. 5/5 strength in all extremities. PSYCH Normal mood and affect. Judgement/competence is appropriate Coding Level of Care Code Est Pt Level 3 (63654) Diagnoses Other polyneuropathy G62.89 Peripheral neuropathy type: polyneuropathy, other Acquired hypothyroidism E03.9 Hypothyroidism type: acquired Time Spent (min) 20 Assessment & Plan Assessment & Plan (1) Peripheral neuropathy: Comment: 09/13/23 NCV/EMG LE Axonal sensory greater than motor peripheral neuropathy in the lower extremities. Normal EMG in the left L4-S1 innervated muscles. Code(s): G62.9 - Polyneuropathy, unspecified Category: Medical Qualifiers: Peripheral neuropathy type: polyneuropathy, other Qualified Code(s): G62.89 - Other specified polyneuropathies Plan: - The patient's request for prednisone was discussed; it is not recommended for long-term use due to significant side effects, including risks to bones, infection, stroke, hypertension, and diabetes. - Alternative treatments for neuropathic pain were reviewed, including gabapentin (which she tolerated poorly), Lyrica, venlafaxine, and duloxetine (Cymbalta). - The patient has taken Cymbalta in the past and agreed to a trial. - A prescription for duloxetine (Cymbalta) 40 mg once daily will be sent to the pharmacy. - The patient has a follow-up appointment with Dr. Gilliam in five days to assess her response to the new medication. - The patient was strongly advised against using high-dose NSAIDs such as Motrin 800mg due to her history of gastric bypass surgery and the associated high risk of developing ulcers and perforation. - She was informed that she can use kygi-gnn-ciffibe ibuprofen if necessary, but at a very small dose and taken with food. (2) Hypothyroid: Code(s): E03.9 - Hypothyroidism, unspecified Category: Medical Qualifiers: Hypothyroidism type: acquired Qualified Code(s): E03.9 - Hypothyroidism, unspecified Plan: - The patient's thyroid medication dose was recently reduced to 12.5 mcg due to a low TSH level of 0.14. - An order for a repeat TSH level has been placed. - The patient was instructed to have her blood drawn before taking her thyroid medicaiton dose. - She will discuss with Dr. Gilliam at her upcoming appointment whether she needs to be on two thyroid medications (levothyroxine and liothyronine) or if Synthroid alone is sufficient. Plan I discussed with the patient the management of her chronic pain and peripheral neuropathy. I explained that prednisone is not a safe long-term solution due to risks of bone problems, infections, stroke, and metabolic issues like diabetes and high blood pressure. We reviewed several alternatives, including restarting gabapentin at a lower dose, Lyrica, venlafaxine, and duloxetine (Cymbalta). She recalled taking Cymbalta previously and agreed to a trial, so I will prescribe duloxetine 40 mg daily. I strongly advised against using high-dose NSAIDs like Motrin 800mg because of her gastric bypass history, explaining the significantly increased risk of stomach ulcers and perforation, which could lead to serious complications. We also reviewed her thyroid medication, noting the recent dose reduction to 12.5 mcg due to a low TSH. I advised her to confirm she is on the correct dose and to discuss with her primary doctor, Dr. Gilliam, whether she needs combination therapy. I informed her that lab orders for a repeat TSH are in place and that the blood should be drawn before her morning dose. The patient will follow up with Dr. Gilliam in five days. Medications: New duloxetine 40 mg PO DAILY 20 caps 1RF
[2024-12-21 10:43] VITALS: BP 132/70; TEMP 36.2; BMI 32.0
--- OUTSIDE RECORDS SUMMARY | 2024-12-21 12:04 | XMS_ITS | Clinical Summary ---
Author Organization [facility] Address [address] [address] Phone Care Team Providers Care Fine Dining Server Name Role Phone Shahida Trevizo MD Primary [...] and vinegar or a vinaigrette or an [place] Islander dressing at the 12 PM and 6 PM times. She may consume an apple or pear or [place]dean yogurt or cottage cheese at 8:00 if [...] refer the patient to Dr. Davis a vibration analyst at [facility] for further work-up of slow [...] file Insurance MEDICARE PART A & B [facility] FULL MEDICARE PART A & B [employer] FULL MEDICARE PART A & B [facility] NET FULL MEDICARE PART A & B [employer] FULL MEDICARE PART A & B [facility] FULL MEDICARE PART A & B [facility] FULL Care Teams Fine Dining Server Relationship Specialty Start Date End Date Shahida Trevizo MD [address] [place] [address] PCP - General Internal Medicine 06/16/23 Additional Source Comments The information contained in this document represents components of the legal health record. It is not the complete legal health record.[facility]
--- OUTSIDE RECORDS SUMMARY | 2024-12-21 12:04 | XMS_ITS | Clinical Summary ---
Author Organization [address] [facility] Address [address] [place] [address] Phone Care Team Providers Care Inspector Plating Name Role Phone Driss Santiago MD Primary Care Provider [phone] Allergies Active Allergy Reactions Criticality Noted Date Comments Amoxicillin 12/27/2023 Cefuroxime Itching 04/28/2017 Cephalosporins Itching 09/07/2017 Other Reaction(s): Other (See Comments) Medications levothyroxine (SYNTHROID, LEVOTHROID) 88 mcg tablet Take 1 Tablet by mouth daily. - Oral Active cholecalciferol , vitamin D3, (VITAMIN D3 ORAL) D3-50 1.25 MG (43567 UT) Cap TAKE 1 CAPSULE BY MOUTH [...] Fungal rash of trunk 12/27/2023 Aspiration pneumonia ([facility] V24, [facility] V28) 12/27/2023 Hypothyroidism 12/27/2023 Bipolar affective disorder ([facility] V24, [facility] V28) 12/27/2023 Constipation 12/27/2023 Gassiness 12/27/2023 Epigastric pain 12/27/2023 Encounters Date Type Department Care Team Description 11/06/2024 11:15 AM EDT Office Visit Pulmonology - [address] [place] [address] Angela Painter MD Aspiration pneumonia, unspecified aspiration pneumonia type, unspecified laterality, unspecified part of lung ([facility] V24, [facility] V28) (Primary Dx) from Last 3 Months Immunizations Immunization Administration Dates Next Due Influenza trivalent, with pr eservative (Fluzone; Afluria) 6mo and older 02/07/2009 Influenza, live, intranasal, trivalent (FluMist) 2yo to less than 50yo 11/17/2012,12/03/2009,02/07/2009 Td Tetanus diptheria (Tdvax) 7yo and older 03/28 Surgical History Surgery Date Site/Laterality Comments GASTRIC BYPASS 2001 PROCEDURE: NE GASTRIC RSTCV W/BYP W/SM INT RCNSTJ LIMIT ABSRPJ COLONOSCOPY 09/09/08 PROCEDURE: HISTORICAL COLONOSCOPY; COMMENT: hemorrhoids; repeat in ten years OTHER SURGICAL HISTORY 02/25/2009 PROCEDURE: NE HYSTEROSCOPY LYSIS INTRAUTERINE ADHESIONS SECTION PROCEDURE: HISTORICAL DELIVERY; COMMENT: x 2 TONSILLECTOMY PROCEDURE: HISTORICAL TONSILLECTOMY; COMMENT: and Adenoidectomy OTHER SURGICAL HISTORY 08/08/2014 PROCEDURE: NE LAPS GASTRIC RESTRICTIVE PROCEDURE PLACE DEVICE; COMMENT: Dr Bello, took out in 2018 LUMBAR LAMINECTOMY PROCEDURE: HISTORICAL LUMB LAMINECTOMY OTHER SURGICAL HISTORY 2001 PROCEDURE: NE LAPS GSTR RSTCV PX W/BYP THEO-EN-Y LIMB <150 CM; COMMENT: Dr PRITCHETT Medical History Medical History Date Comments Backache, unspecified DX:Backach e, unspecified ADD (attention deficit disorder) 01/16/2007 DX:ADD (attention deficit disorder); COMMENT: Follows with [facility] Osteoarthritis of both knees 09/07/2017 DX: [...] Most Recently Relevant to Health Maintenance [facility] [place] [id number] MEDICARE MEDICAID [place] Care Teams Inspector Plating Relationship Specialty Start Date End Date Driss Santiago MD [address] [place] [address] [address] [facility] [place] [address] PCP - General Internal Medicine 02/08/17
--- OUTSIDE RECORDS SUMMARY | 2024-12-21 12:04 | XMS_ITS | Encounter Summary ---
Author Organization [facility] Address [address] [place] [address] [place] [id number] Phone Care Team Providers Care Regional Director Of Admissions Name Role Phone Shahida Trevizo MD Primary Care Provid er Encounter Details Date Type Department Care Team ([facility] st Contact Info) Description 06/16/2023 Procedure Pass Echo Lab [address] [place] [address] Social History Tobacco Use Types Packs/Day Years [...] on filedocumented in this encounter Care Teams Regional Director Of Admissions Relationship Specialty Start Date End Date Shahida Trevizo MD [address] [place] [address] PCP - General Internal Medicine 06/16/23 documented as of this encounter Additional Source Comments The information contained in this document represents components of the legal health record. It is not the complete legal health record.[facility]
--- OUTSIDE RECORDS SUMMARY | 2024-12-21 12:04 | XMS_ITS | Clinical Summary ---
Author Organization [facility] Address [address] [place] [address] Care Team Providers Care Staffing Consultant Name Role Phone Driss Santiago MD Primary Care Provider [phone] Allergies Active Allergy Reactions Criticality Noted Date [...] age to complete this topic Care Teams Staffing Consultant Relationship Specialty Start Date End Date Driss Santiago MD [address] [place] [address] [address] [facility] [place] [address] PCP - General Internal Medicine 10/17/19
--- OUTSIDE RECORDS SUMMARY | 2024-12-21 12:04 | XMS_ITS | Patient Health Record ---
[facility] Address [address] [facility] [place] [address] Care Team Providers Care Putty Remover Name Role Phone Driss Santiago Primary Care Provider Jonatan Buchanan Unavailable [phone] Allergies Allergen (clinical drug ingredient) Drug/Non Drug Allergy documented on EMR Reaction Allergy Type Onset Date Status amoxicillin Amoxicillin severe reaction Drug Allergy Active Reason For Referral No Information Medications Medication SIG (Take, Route, Fr equency, Duration) Notes Start Date End Date Status [place] Active Naproxen as needed Active Vitamin B [...] X ray : Foot, right 3V 10/31/2019 [id number] TENDON SHEATH/LIGAMENT 1 04/03/2019 Insurance Providers Payer Name Payer Address Payer Phone Subscriber Number Group Number Insured Name Patient Relationship to Insured Coverage Start Date Coverage End Date [facility] [address] [place], [place] [phone] [id number] DARIANA SHEA Spouse - patient is the spouse of the insured Medical (General) History Medical History History ICD Code Anemia Anxiety Back,Hip,and Knee pain Depression Numbness Psychiatric disorder raynauds disease thyroid Measles Mumps Chicken pox Surgical History Surgery Date(Month/Year) lumbar laminectomy 1986 section 1986 gastric bypass 2002 gall bladder 2015 T+A 1977
== END 2024-12-21 11:35 | disposition home or self-care (01) ==
LOC: HO.HMCH 10:40
PROVIDERS: Visit Provider Internal Medicine
DX: G62.89 Other specified polyneuropathies (principal); E03.9 Hypothyroidism, unspecified

== ENCOUNTER → 2024-12-21 10:39 | Outpatient (BNVA) | payer MEDICARE, MEDICAID, SELFPAY | PROVIDERS: Visit Provider Internal Medicine | DX: G62.89 Other specified polyneuropathies (principal); E03.9 Hypothyroidism, unspecified | CPT/HCPCS: 99212 ==

== ENCOUNTER 2024-12-22 09:09 | Emergency (ER) | payer MEDICARE, MEDICAID, SELFPAY ==
[2024-12-22 09:13] VITALS: BP 137/65; PULSE 98; RESP 18; TEMP 36.3; O2SAT 98; BMI 32.8
--- OUTSIDE RECORDS SUMMARY | 2024-12-22 09:35 | XMS_ITS | Clinical Summary ---
Author Organization [facility] Address [address] [address] Phone Care Team Providers Care Malted Milk Mixer Name Role Phone Shahida Trevizo MD Primary [...] and vinegar or a vinaigrette or an [place] dressing at the 12 PM and 6 PM times. She may consume an apple or pear or [place]anian yogurt or cottage cheese at 8:00 if [...] refer the patient to Dr. Davis a nuclear powerplant supervisor at [facility] for further work-up of slow transit [...] file Insurance MEDICARE PART A & B [facility] FULL MEDICARE PART A & B [employer] NET FULL MEDICARE PART A & B [employer] [facility] NET FULL MEDICARE PART A & B [employer] FULL MEDICARE PART A & B [facility] FULL MEDICARE PART A & B [facility] FULL Care Teams Malted Milk Mixer Relationship Specialty Start Date End Date Shahida Trevizo MD [address] [place] [address] PCP - General Internal Medicine 06/16/23 Additional Source Comments The information contained in this document represents components of the legal health record. It is not the complete legal health record.[facility]
--- OUTSIDE RECORDS SUMMARY | 2024-12-22 09:35 | XMS_ITS | Clinical Summary ---
Author Organization [facility] Address [address] [place] [address] Care Team Providers Care Ladle Watcher Name Role Phone Driss Santiago MD Primary Care Provider [phone] Allergies Active Allergy Reactions Criticality Noted Date [...] age to complete this topic Care Teams Ladle Watcher Relationship Specialty Start Date End Date Driss Santiago MD [address] [place] [address] [address] [facility] [place] [address] PCP - General Internal Medicine 10/17/19
--- OUTSIDE RECORDS SUMMARY | 2024-12-22 09:35 | XMS_ITS | Data Portability ---
Author Organization [place] [facility] [place] Address [address] [place] [address] Care Team Providers Care Compounder Name Role Phone HENRYORALNDO Primary Care Provider [phone] Assessment Encounter Date Assessment Date Assessment LastModified [...] findings at length with the patient today. We discussed the nature and etiology of this problem along with current treatment options. We discussed the expected course and outcomes and what to expect. We also discussed risks and benefits. All of their questions were answered today, and there was exhibited understanding and comprehension of all that was discussed. Time Spent: 10 minutes were spent reviewing previous imaging and charting. 10 minutes were spent obtaining patient history. 5 minutes were spent on physical exam. 5minutes were spent explaining diagnosis and assessment. Today's documentation was made using voice recognition software. This note may contain grammatical errors secondary to the software. Not available 03/01/2023 12:23:39 03/04/2023 03/04/2023 HPI : T cindi you for the pleasure of requesting a [...] motion. The knee is stable within that xvthp-ue-pzuadh to AP and ML stress. The alignment of the knee is neutral. Muscle strength is normal. Pedal pulses are palpable. Hip examination, including flexion and internal rotation, was negative in that groin pain was not produced. Radiographs of the right knee from March 01, 2023 demonstrate degenerative joint disease with joint space narrowing, osteophyte formation, and subchondral sclerosis. There is zspp-yy-eose articulation in the patellofemoral compartment. Assessment/Plan : [...] patient is a good candidate for surgical reconstruction. We would use the [employer] system with Oxinium because of her nickel allergy. Right total knee replacement robotic assisted at [facility], likely in October 2023. Not available 03/04/2023 10:13:42 Plan of Treatment Reminders Order Date Submit Date Provider Last Modified By Organization Details Last Modified Time Details Appointments None recorded. Lab None recorded. Referral None recorded. Procedures None recorded. Surgeries total knee arthroplast y (SURG) 2023 024 [email or web address] 0 Not available 4 13:34:05 Imaging XR, knee, 4 or more view 2023 024 [facility], [address], [address], [place], [address], 4 13:10:54 Medication Orders Kenalog 40 mg/mL suspension for injection 2023 024 [id number], [address] [place], [place], [id number], 4 12:35:08 lidocaine (PF) 10 mg/mL (1 %) injection solution 2023 024 [facility] #[id number], [address] [place], [place], [id number], 4 12:35:08 Patient TargetsNo targets recorded. Patient Instructions Encounter Date Encounter Id Patient Instructions Last Modified By Organization Details Last Modified Time 03/01/2023 [id number] You have been provided with a cortisone [...] hours following the injection. This is called zackary johnson . To help minimize the chances of [...] changes. Right knee lateral view grade 4 zakj-wu-uncy articulation patellofemoral arthritis with osteophyte formation subchondral sclerosis without acute bony abnormality. Not available 03/01/2023 12:24:33 Reason for Referral None Reported. Problems Name Problem SNOMED Code Status Onset Date Resolution Date Notes Provider Name and Address Organization Details Recorded Time Pain of left shoulder region Active 2017 Left shoulder pain Not Available [facility] 5 00:39:04 Shoulder girdle weakness 225482767 Active 2017 Shoulder weakness Not Available [facility] 5 00:39:04 Arthritis of right acromiocl avicular joint 53259741345 81959 Active 2017 Arthritis of right acromiocl avicular joint Not Available [facility] 5 00:39:04 Partial thickness rotator cuff tear 639112925 Active 2017 Incomplet e tear of right rotator cuff Not Available [facility] 5 00:39:05 Disorder of shoulder 546041866 Active 2018 Shoulder impingeme nt, right Not Available [facility] 5 00:39:04 Impingeme nt syndrome of left shoulder region 42910290113 9104 Active 2018 Shoulder impingeme nt syndrome, left Not Available [facility] 5 00:39:05 Secondary osteoarth ritis 660677283 Active 2023 BETH CALVIN PA-C [address], [place], [address] , [place] [facility] 4 12:24:41 Osteoarth ritis of right knee joint 43486215400 9100 Active 2023 BETH CALVIN PA-C [address], [place], [address] , [place] [facility] 4 12:24:52 Arthritis of knee 083220130 Active 2023 Saurabh Kay MD [address], [place], [address] , [place] [facility] 4 10:13:36 Problem Notes None recorded. Procedures Surgical History Date Name Laterality Status Provider Name and Address Organization Details Recorded Time 03/01/19 24 Knee Joint/Bursa Asp & Inj completed BETH CALVIN PA-C [address], [place], [address], [place] [facility] 03/01/2023 12:22:13 section completed Sheyla Otaes [place] [facility] 03/01/2023 11:25:39 Gastric bypass for obesity completed [facility] [place] [facility] 03/01/2023 11:26:01 panniculotomy completed [facility] 03/01/2023 11:46:40 Imaging Results None recorded. Procedure Notes None recorded. Medical Equipment None Reported. Allergies Allergen ID Allergen Name Allergen Category Reaction Reaction Severity Criticality Documentation Date Start Date Code Code System Note Provider Name and Address Organization Details Recorded Time 96697 amoxicill in medicatio n Not available Not available Not available 03/01/2023 723 RxNorm [facility], [place] [facility] 4 11:00:31 77773 nickel environme nt Not available Not available [facility] 03/01/2023 31947 29 RxNorm BETH CALVIN PA-C [address] [facility] [address] [facility] [address], [place], [address] [facility] [place] [facility] 4 12:26:22 74084 cefuroxim e Not available Not available Not available Not available 11/13/20242017 2194 RxNorm React ion: Itchi ng, sever ity: Unkno wn Not Available [facility] 5 01:24:59 57203 Cephalosp elisa (substanc e) medicatio n Not available Not available Not available 11/13/20242017 46115 7003 SNOMED React ion: Itchi ng, sever ity: Unkno wn;Re actio n: Other (See Comme nts), sever ity: Unkno wn Not Available [facility] 5 01:24:59 Medications Name Sig Start Date Stop Date [...] Not Available Not Available No t Available bupropion HCl SR 150 mg tablet,12 hr sustained-re lease TAKE 1 TABLET BY MOUTH EVERY DAY IN THE MORNING 2017 active Not Available Not Available Not Avai lable diclofenac 3 % topical gel APPLY TO [...] Not Available Not Available No t Available clonazepam 0.5 mg tablet TAKE 1 TABLET AT BEDTIME 2017 active Not Available Not Available Not Avai lable lithium carbonate ER 300 mg tablet,exten ded release TAKE 3 TABLETS BY MOUTH AT BEDTIME active Not Available Not Available No t Available lithium carbonate 150 mg capsule TAKE ONE CAPSULE BY MOUTH EVERY DAY WITH 300MG CAPSULE 2017 active Not Available Not Available Not Avai lable calcium 600 mg (as carbonate)-v itamin D3 5 mcg (200 unit) tablet 1 bid active Not Available Not Available Not Available ciprofloxaci n 500 mg tablet TAKE 1 TABLET BY MOUTH TWICE A DAY active Not Available Not Available No t Available omeprazole 40 mg capsule,gela yed release TAKE ONE CAPSULE BY MOUTH EVERY DAY 2017 active Not Available Not Available Not Avai lable phentermine 30 mg capsule Take 30 mg by mouth daily. in the morning 2018 active Not Available Not Available Not Avai lable levothyroxin e 75 mcg tablet TAKE 1 [...] Not Available Not Available No t Available oxycodone-ac etaminophen 10 mg-325 mg tablet TAKE 2 TABS IN THE MORNING AND 1 TAB 3 TIMES A DAY FOR CHRONIC PAIN 2018 active Not Available Not Available Not Avai lable trazodone 100 mg tablet Take 200 mg by mouth. active Not Available Not Available No t Available lithium carbonate 600 mg capsule Take 600 mg by mouth. active Not Available Not Available No t Available benzonatate 100 mg capsule TAKE 1 CAP BY MOUTH 3 TIMES DAILY NEEDED FOR COUGH FOR UP TO 7 DAYS. 2017 active Not Available Not Available Not Avai lable pantoprazole 40 mg tablet,delay ed release TAKE 1 TABLET BY MOUTH EVERY DAY active Not Available Not Available No t Available methylpredni solone acetate 40 mg/mL suspension for injection 2020 active Not Available Not Available Not Avai lable ferrous sulfate 325 mg (65 mg iron) tablet Take 1 tablet by mouth daily. 2020 active Not Available Not Available Not Avai lable levothyroxin e 125 mcg tablet Take 125 mcg by mouth. 2018 active Not Available Not Available Not Avai lable ascorbic acid (vitamin C) 500 mg chewable tablet 2020 active Not Available Not Available Not Avai lable betamethason e dipropionate 0.05 % topical cream [...] active Not Available Not Available Not Available morphine 15 mg immediate release tablet 2018 active Not Available Not Available Not Avai lable ondansetron 4 mg disintegrati ng tablet DISSOLVE 1 TABLET BY MOUTH EVERY 8 HOURS FOR NAUSEA active Not Available Not Available No t Available cholecalcife rol (vitamin D3) 125 mcg (5,000 unit) capsule TAKE 1 CAPSULE BY MOUTH EVERY DAY active Not Available Not Available No t Available naproxen 500 mg tablet Take 500 mg by mouth 2 (two) times a day. 2020 active Not Available Not Available Not Avai lable diazepam 5 mg tablet TAKE 1 TABLET BY MOUTH THREE TIMES A DAY active Not Available Not Available Not Available oxycodone 5 mg tablet TAKE 1 TABLET BY MOUTH EVERY DAY NEEDED FOR PAIN active Not Available Not Available No t Available metaxalone 800 mg tablet TAKE 1 TABLET BY MOUTH 3 TIMES A DAY 2017 active Not Available Not Available Not Avai lable bupropion HCl XL 300 mg 24 hr tablet, extended release TAKE 1 TABLET BY MOUTH EVERY MORNING 2016 active Not Available Not Available Not Avai lable duloxetine 30 mg capsule,gela yed release Take 30 mg by mouth daily. 2017 active Not Available Not Available Not Avai lable tizanidine 4 mg capsule Take 4 mg by mouth 3 (three) times a day. 2017 active Not Available Not Available Not Avai lable lidocaine (PF) 10 mg/mL (1 %) injection [...] Not Available Not Available No t Available Latuda 20 mg tablet Take 20 mg by mouth every night at bedtime. 2019 active Not Available Not Available Not Avai lable linaclotide 290 mcg capsule Take 1 tablet by mouth. 2019 active Not Available Not Available Not Avai lable lurasidone 60 mg tablet TAKE 1 TABLET BY MOUTH EVERYDAY AT BEDTIME active Not Available Not Available No t Available Narcan 4 mg/actuation nasal spray ADMINISTER 1 SPRAY INTO ONE NOSTRIL. CALL 911. REPEAT AFTER 2-3 MIN IF NO OR MINIMAL RESPONSE 2018 active Not Available Not Available Not Avai lable Vraylar 1.5 mg capsule TAKE ONE CAPSULE BY MOUTH AT BEDTIME 2021 active Not Available Not Available Not Avai lable Children's Acetaminophe n 160 mg/5 mL oral liquid TAKE 20 ML BY MOUTH EVERY 6 HOURS FOR 3 DAYS active Not Available Not Available No t Available Vitals Date Recorded Body height Body mass index (BMI) Body weight Provider Name and Address Organization Details Last Updated DateTime 03/01/2023 175.26 cm 39.7 kg/m2 944608.[address] [place] [facility] 03/01/2023 11:01:17 Date Recorded Body height Body mass index (BMI) Body weight Provider Name and Address Organization Details Last Updated DateTime 03/04/2023 175.26 cm 40.2 kg/m2 942168.12 g Sandy Fernández [place] [facility] 03/04/2023 09:57:00 Social History None recorded. Functional Status Question Answer Note LastModified by Organizat ion Details LastModified Time Do you use any illicit or recreational drugs? No Information not available 03/01/2023 Do you or have you ever used any other forms of tobacco or nicotine? No Information not available 03/01/2023 What is your level of alcohol consumption? None Information not available 03/01/2023 Mental Status None recorded. Family History Relationship [...] Diagnosis SNOMED-CT Code Diagnosis ICD10 Code Diagnosis IMO Codes Diagnosis Note 52462 LI LOPEZ [facility] [address] [facility] [address] [place] [address] 03/01/2023 10:50:02 03/01/2023 11:45:23 Pain of right knee joint 7748877432 26185 M25.561 Osteoarthr itis of right knee joint 5273609434 18948 M17.11 95284 MD DENZEL Tucker [facility] [address] [facility] [address] [place] [address] 03/04/2023 09:51:02 03/04/2023 10:17:36 Osteoarthritis of right knee joint 8204164528 28727 M17.11 Arthritis of knee 287979 002 M13.869 Health Concerns Section Related Observation LastModified by Organization Detai ls LastModified Time None Recorded Concern Status LastModified by Organization Details LastModified Time None Recorded Advance Directives Directive None Recorded Payers Insurance Date Sequence Insurance Name Policy Number Policy Schmitz Covered Member ID Schmitz Member ID Guarantor Name 03/01/2023 1 [employer] Norma Polo [id number] Norma Polo 03/02/2023 2 [place] [facility] Norma J Polo [id number] Norma Polo 03/02/2023 1 MEDICARE B-[place]: [employer] Norma J Polo [id number] Norma Polo Notes Date Note Type Note [...] medial in nature BETH CALVIN PA-C [address] [facility],[address], [place], [address], [place] [facility] 03/01/2023 12:35:12 OBGyn Episode No OBEpisode recorded.
--- OUTSIDE RECORDS SUMMARY | 2024-12-22 09:35 | XMS_ITS | Clinical Summary ---
Author Organization [facility] Address [address] [place] [address] Phone Care Team Providers Care Check Airman Name Role Phone Driss Santiago MD Primary Care Provider [phone] Allergies Active Allergy Reactions Criticality Noted Date Comments Amoxicillin 12/27/2023 Cefuroxime Itching 04/28/2017 Cephalosporins Itching 09/07/2017 Other Reaction(s): Other (See Comments) Medications levothyroxine (SYNTHROID, LEVOTHROID) 88 mcg tablet Take 1 Tablet by mouth daily. - Oral Active cholecalciferol , vitamin D3, (VITAMIN D3 ORAL) D3-50 1.25 MG (11302 UT) Cap TAKE 1 CAPSULE BY MOUTH [...] of trunk 12/27/2023 Aspiration pneumonia ([facility] V24, [facility] V28) 12/27/2023 Hypothyroidism 12/27/2023 Bipolar affective disorder ([facility] V24, [facility] V28) 12/27/2023 Constipation 12/27/2023 Gassiness 12/27/2023 Epigastric pain 12/27/2023 Encounters Date Type Department Care Team Description 11/06/2024 11:15 AM EDT Office Visit Pulmonology - [address] [place] [address] Angela Painter MD Aspiration pneumonia, unspecified aspiration pneumonia type, unspecified laterality, unspecified part of lung ([facility] V24, [facility] V28) (Primary Dx) from Last 3 Months Immunizations Immunization Administration Dates Next Due Influenza trivalent, with pr eservative (Fluzone; Afluria) 6mo and older 02/07/2009 Influenza, live, intranasal, trivalent (FluMist) 2yo to less than 50yo 11/17/2012,12/03/2009,02/07/2009 Td Tetanus diptheria (Tdvax) 7yo and older 03/28 Surgical History Surgery Date Site/Laterality Comments GASTRIC BYPASS 2001 PROCEDURE: SD GASTRIC RSTCV W/BYP W/SM INT RCNSTJ LIMIT ABSRPJ COLONOSCOPY 09/09/08 PROCEDURE: HISTORICAL COLONOSCOPY; COMMENT: hemorrhoids; repeat in ten years OTHER SURGICAL HISTORY 02/25/2009 PROCEDURE: SD HYSTEROSCOPY LYSIS INTRAUTERINE ADHESIONS SECTION PROCEDURE: HISTORICAL DELIVERY; COMMENT: x 2 TONSILLECTOMY PROCEDURE: HISTORICAL TONSILLECTOMY; COMMENT: and Adenoidectomy OTHER SURGICAL HISTORY 08/08/2014 PROCEDURE: SD LAPS GASTRIC RESTRICTIVE PROCEDURE PLACE DEVICE; COMMENT: Dr Bello, took out in 2018 LUMBAR LAMINECTOMY PROCEDURE: HISTORICAL LUMB LAMINECTOMY OTHER SURGICAL HISTORY 2001 PROCEDURE: SD LAPS GSTR RSTCV PX W/BYP THEO-EN-Y LIMB <150 CM; COMMENT: Dr PRITCHETT Medical History Medical History Date Comments Backache, unspecified DX:Backach e, unspecified ADD (attention deficit disorder) 01/16/2007 DX:ADD (attention deficit disorder); COMMENT: Follows with [facility] Osteoarthritis of both knees 09/07/2017 DX: Osteoarthritis [...] Most Recently Relevant to Health Maintenance [place] [facility] [id number] MEDICARE [place]ICAID [place] Care Teams Check Airman Relationship Specialty Start Date End Date Driss Santiago MD [address] [place] [address] Dr [address]es [address] [facility] [place] [address] PCP - General Internal Medicine 02/08/17
--- OUTSIDE RECORDS SUMMARY | 2024-12-22 09:35 | XMS_ITS | Encounter Summary ---
Author Organization [facility] Address [address] [place] [address] [place] [address] Phone Care Team Providers Care Senior Engineering Team Leader Name Role Phone Shahida Trevizo MD Primary Care Provid er Encounter Details Date Type Department Care Team ([facility] st Contact Info) Description 06/16/2023 Procedure Pass Echo Lab [address] [place] [address] Social History Tobacco Use Types Packs/Day Years [...] on filedocumented in this encounter Care Teams Senior Engineering Team Leader Relationship Specialty Start Date End Date Shahida Trevizo MD [address] [place] [address] PCP - General Internal Medicine 06/16/23 documented as of this encounter Additional Source Comments The information contained in this document represents components of the legal health record. It is not the complete legal health record.[facility]
--- OUTSIDE RECORDS SUMMARY | 2024-12-22 09:35 | XMS_ITS | Patient Health Record ---
Author Organization [facility] Address [address] [facility] [place] [address] Care Team Providers Care Credit Underwriter Name Role Phone Driss Santiago Primary Care Provider Jonatan Buchanan Unavailable [phone] Allergies Allergen (clinical drug ingredient) Drug/Non Drug Allergy documented on EMR Reaction Allergy Type Onset Date Status amoxicillin Amoxicillin severe reaction Drug Allergy Active Reason For Referral No Information Medications Medication SIG (Take, Route, Fr equency, Duration) Notes Start Date End Date Status [place] Active Naproxen as needed Active Vitamin B [...] X ray : Foot, right 3V 10/31/2019 [id number] TENDON SHEATH/LIGAMENT 1 04/03/2019 Insurance Providers Payer Name Payer Address Payer Phone Subscriber Number Group Number Insured Name Patient Relationship to Insured Coverage Start Date Coverage End Date [facility] [address] [place], [place] [id number] DARIANA SHEA Spouse - patient is the spouse of the insured Medical (General) History Medical History History ICD Code Anemia Anxiety Back,Hip,and Knee pain Depression Numbness Psychiatric disorder raynauds disease thyroid Measles Mumps Chicken pox Surgical History Surgery Date(Month/Year) lumbar laminectomy 1986 section 1986 gastric bypass 2002 gall bladder 2015 T+A 1977
--- NOTE | 2024-12-22 09:55 | ED.BACK ---
HPI - Back Pain/Injury General Chief Complaint: Back Pain/Injury Stated Complaint: back pain Time Seen by Provider: 12/22/24 09:29 History of Present Illness HPI Narrative: Patient is a 64-year-old female presented today with having back pain radiating down to the right leg. There is no bowel urinary incontinence. There is no focal weakness. Patient is from home. Has a history of back pain on the left side. Had surgery over 20 years ago. History of gastric bypass. There is no nausea no vomiting. No fever no chills. Related Data Home Medications ?Medication ?Instructions ?Recorded ?Confirmed liothyronine 5 mcg tablet 5 mcg PO BID 08/22/23 12/21/24 cyclobenzaprine 10 mg tablet 10 mg PO BID PRN 10/21/23 12/21/24 tirzepatide 15 mg/0.5 mL 15 mg subcut QWEEK 11/26/24 12/21/24 subcutaneous pen injector (Mounjaro) Previous Rx's ?Medication ?Instructions ?Recorded lurasidone 20 mg tablet (Latuda) 60 mg (3 x 20 mg) PO DAILY #90 tabs 10/17/24 levothyroxine 25 mcg tablet 12.5 mcg (1/2 x 25 mcg) PO DAILY 11/26/24 (Synthroid) 90 days #45 tabs prednisone 10 mg tablet 10 mg PO DIRECTED 8 days #20 12/17/24 tabs duloxetine 40 mg capsule,delayed 40 mg PO DAILY #20 caps 12/21/24 release lidocaine 5 % topical patch 1 patch topical DAILY #15 ea 12/22/24 (Lidoderm) Allergies Allergy/AdvReac Type Severity Reaction Status Date / Time amoxicillin (Amoxicillin) Allergy Severe HIVES, Verified 12/22/24 09:18 swelling PMFSH Past Medical History Medical History Varicose veins of right lower extremity with inflammation Severe obesity (BMI 35.0-35.9 with comorbidity) Idabel toxicity Morbid obesity Polyarthralgia LLQ abdominal pain Chronic diarrhea Adult general medical exam Screening for diabetes mellitus Screening for colon cancer Screening for breast cancer Post-menopausal Depression Left hip pain Left shoulder pain Slurred speech Left lateral abdominal pain Urinary incontinence Osteomyelitis Weight gain Abdominal muscle strain Marginal ulcer Bipolar disorder Anemia ADHD PTSD (post-traumatic stress disorder) Back pain DDD (degenerative disc disease) SOB (shortness of breath) Upper back pain on left side Dizziness Hx of small bowel obstruction Right rotator cuff tear Iron deficiency anemia Obesity GERD (gastroesophageal reflux disease) Hypercholesterolemia Anxiety and depression Osteoarthritis Lumbar disc herniation Surgical History History of endoscopy History of esophagogastroduodenoscopy (EGD) Hx of colonoscopy History of adjustable gastric banding History of removal of laparoscopic gastric banding device Hx of section S/P panniculectomy Hx of laparoscopic gastric banding Hx of laminectomy Hx laparoscopic cholecystectomy History of Theo-en-Y gastric bypass Hx of tonsillectomy Family History Family History Father HTN (hypertension) DM (diabetes mellitus) Bladder cancer Prostate cancer Hyperlipidemia Mother Thyroid nodule Brother No problems noted. Sister No problems noted. Son No problems noted. Daughter No problems noted. Social History Social History Household Members: Spouse and Children Household Members Other:: dog and cat Housing: House Do you presently have visiting nurse or other home services: No Alcohol intake: never Patient Tobacco Use Status: Never used Tobacco Smoked in Last 30 Days: No e-Cigarette/Vaping Use: Never Used Second Hand Smoke Exposure: No Use of substances other than those prescribed or required for medical reasons: No Substance Use Type: Opiates Advance Directives: Yes Advance Directives on File: Yes Advance Directives Date on File: 02/10/21 Do you have a plan to hurt others: No Plan service: No Current occupational status: disabled Sexual orientation: Straight/Heterosexual Cognitive needs: No Hearing needs: No Vision needs: Yes Physical Exam Vital Signs: Vital Signs: Last Vital Signs Temp 97.3 F 12/22/24 09:13 Pulse 93 12/22/24 11:13 Resp 16 12/22/24 11:13 BP 141/91 H 12/22/24 11:13 Pulse Ox 100 12/22/24 11:13 O2 Del Method Room Air 12/22/24 11:13 BMI result Body Mass Index 32.8 Medications Administered Discontinued Medications Generic Name Dose Route Start Last Admin Trade Name Freq PRN Reason Stop Dose Admin Ketorolac Tromethamine 15 mg 12/22/24 09:52 12/22/24 10:01 Ketorolac Tromethamine 15 Mg/Ml Vial IM 12/22/24 09:53 15 mg ONCE ONE Administration Lorazepam 0.5 mg 12/22/24 09:52 12/22/24 10:02 Lorazepam 0.5 Mg Tablet PO 12/22/24 09:53 0.5 mg ONCE ONE Administration Medical Decision Making Medical Decision Making [facility] Narrative: Given medications with good symptom relief. Will discharge patient home. Currently in stable condition. No bowel urinary incontinence. No focal weakness. Differential Diagnosis Differential Diagnoses: The differential diagnosis associated with the presentation includes Lab Data [facility] Lab Attestation statement: I reviewed the patient's lab results. External Record Review External record reviewed: Inpatient record Chronic Conditions History of gastric sleeve. Previous history of narcotic use. History of traumatic brain injury Social Determinants Patient?s care significantly limited by Social Determinants of Health including: Problems related to primary support group Discharge Plan Discharge Clinical Impression: Sciatic leg pain Patient Disposition: Home, Self-Care Instructions: Sciatica (ED) Prescriptions: New lidocaine [Lidoderm] 5 % adhesive patch,medicated 1 patch topical DAILY Qty: 15 0RF Rx Instructions: leave on most painful area for up to 12 hrs No Action lurasidone [Latuda] 20 mg tablet 60 mg PO DAILY Qty: 90 0RF Rx Instructions: must administer with food (at least 350 calories) prednisone 10 mg tablet 10 mg PO DIRECTED 8 Days Qty: 20 0RF Rx Instructions: Take 4 tabs for 2 days, then 3 tabs for 2 days, then 2 tabs for 2 days, then 1 tab for 2 days liothyronine 5 mcg tablet 5 mcg PO BID cyclobenzaprine 10 mg tablet 10 mg PO BID PRN duloxetine 40 mg capsule,delayed release(DR/EC) 40 mg PO DAILY Qty: 20 1RF Mounjaro 15 mg/0.5 mL pen injector 15 mg subcut QWEEK levothyroxine [Synthroid] 25 mcg tablet 12.5 mcg PO DAILY 90 Days Qty: 45 1RF Referrals: Shahida Trevizo MD [Primary Care Provider, Internal Medicine] - 12/25/24 Interventions: ED Discharge Assessment Last Done: 12/22/24 12:10 Print Language: Nepali
[2024-12-22 11:13] VITALS: BP 141/91; PULSE 93; RESP 16; O2SAT 100
[2024-12-22 12:10] VITALS: BP 141/91; PULSE 93; RESP 16; TEMP -17.7; TEMP 0; O2SAT 100
== END 2024-12-22 12:12 | disposition home or self-care (01) ==
PROVIDERS: Emergency Provider Emergency Medicine Emergency Medical Services; PCP Internal Medicine
DX: M54.41 Lumbago with sciatica, right side (principal); M79.604 Pain in right leg; Z79.899 Other long term (current) drug therapy
CPT/HCPCS: 96372; 99284; J1885